=== PATIENT | female | born 1935 | race Caucasian/White ===

== ENCOUNTER 2017-01-25 15:38 | Outpatient (CLI) ==
--- NOTE | 2017-01-25 16:55 | DI ---
EXAM: Chest two view, frontal and lateral views. HISTORY: Cough. COMPARISON: 09/21/2016. FINDINGS: Median sternotomy wires present. Heart size is normal. Atherosclerotic calcifications a re present. The lungs are clear save for calcified granulomatous changes. No consolidation, pleura l effusion or pneumothorax identified. No acute osseous abnormality is seen. IMPRESSION: No acute cardiopulmonary process.
== END 2017-01-25 15:39 | disposition home or self-care (01) ==
LOC: RAD 15:38
PROVIDERS: ATTEND Emergency Medicine
DX: J44.9 Chronic obstructive pulmonary disease, unspecified (principal); R05 Cough

== ENCOUNTER 2017-12-29 10:29 | Outpatient (CLI) | payer OTHER ==
--- NOTE | 2017-12-29 14:03 | DI ---
EXAM: Pelvis AP view HISTORY: Pelvic pain FINDINGS: Compared to 11/03/2011. Hip joints are within normal limits. Sacroiliac joints are withi n normal limits. No fracture or dislocation. Facet arthropathy of the lower lumbar spine is at leas t moderate. IMPRESSION: Facet arthropathy lower spine. Pelvis proper within normal limits.
--- NOTE | 2017-12-29 14:12 | DI ---
Exam: Lumbar spine three-view. HISTORY: Pain. Comparison: 06/18/2014. Findings: Three images of the lumbar spine demonstrate five [id number], lumbarized vertebrae wi th multilevel degenerative disc disease and facet arthropathy which appears moderate to severe at L5 -S1. There is no compression fracture or listhesis. There is no osseous erosion or radiodense forei gn body. Dense atherosclerotic calcifications are noted. Impressions: Degenerative disease in the lumbar spine greatest at L5-S1. No compression fracture or listhesis. Atherosclerosis.
--- NOTE | 2017-12-29 14:12 | DI ---
EXAM: Radiographs, right hip HISTORY: Right hip pain. COMPARISON: None available. TECHNIQUE: Two views. FINDINGS: Bone mineralization is decreased. There is no fracture or dislocation. The joint spaces are maintained. No focal soft tissue abnormality is seen. IMPRESSION: No acute abnormality of the right hip.
== END 2017-12-29 10:30 | disposition home or self-care (01) ==
LOC: RAD 10:29
PROVIDERS: ATTEND Internal Medicine
DX: M25.551 Pain in right hip (principal); M54.9 Dorsalgia, unspecified; W19.XXXA Unspecified fall, initial encounter

== ENCOUNTER 2018-02-24 16:11 | Inpatient (IN) | payer OTHER ==
[2018-02-24] MEDS ORDERED: PROAIR HFA IH PRN (16:54)
[2018-02-24] MEDS ORDERED: DUONEB NEB PRN (16:54)
[2018-02-24] MEDS ORDERED: MORPHINE 4 MG/ML VIAL IVP PRN (17:07)
[2018-02-24] MEDS ORDERED: NITROSTAT SL PRN (17:07)
[2018-02-24] MEDS ORDERED: ATROPINE SULFATE PFS IVP PRN (17:07)
[2018-02-24] MEDS ORDERED: VISTARIL INJ IM PRN (17:07)
[2018-02-24] MEDS ORDERED: TYLENOL PO PRN (17:07)
[2018-02-24 17:24] VITALS: BMI 18.0
[2018-02-24] MEDS: PULMICORT 0.5 MG/2 ML NEB SCH (18:00)
[2018-02-24] MEDS ORDERED: COUMADIN PO SCH (18:00)
[2018-02-24] MEDS: XOPENEX 1.25 MG NEB SCH (18:00)
[2018-02-24] MEDS: DEXTROSE 5%-1/2NS IV SOLUTION 1,000 ML IV SCH (18:06)
[2018-02-24] MEDS: ROCEPHIN 1 GM in SODIUM CHLORIDE 50 ML IV SCH (18:06)
[2018-02-24] MEDS: SOLU-CORTEF 250 MG IVP SCH ×2 (19:10→20:51)
[2018-02-24] MEDS: CALAN SR PO SCH (20:51)
[2018-02-24] MEDS: NEURONTIN PO SCH (20:51)
[2018-02-24] MEDS: LEVEMIR SUBCUT SCH (20:52)
[2018-02-24] MEDS: TUSSIONEX PO SCH (20:52)
[2018-02-24] MEDS: HUMULIN R SUBCUT PRN (20:52)
[2018-02-24] MEDS ORDERED: CALAN SR PO SCH (21:00)
[2018-02-24] MEDS: XANAX PO PRN (22:07)
[2018-02-25] MEDS: XOPENEX 1.25 MG NEB SCH ×4 (00:10→18:27)
[2018-02-25] MEDS: PULMICORT 0.5 MG/2 ML NEB SCH ×2 (04:58→18:26)
[2018-02-25] MEDS: SOLU-CORTEF 250 MG IVP SCH ×3 (05:40→21:02)
--- NOTE | 2018-02-25 07:44 | DI ---
EXAM: CT THORAX HISTORY: Chest pain. TECHNIQUE: CT thorax without intravenous contrast. Multiplanar images presented. COMPARISON: 10/14/2017 FINDINGS: Normal heart size. No pericardial effusion. Stable atherosclerosis and prominent aortic caliber. Mo derate pulmonary emphysema. Scattered fibrosis. No vascular congestion, pneumothorax or pleural flui d. No consolidated pneumonia. The bones are demineralized. Stable wedge-shaped compression deformities of two mid thoracic vertebr al bodies. Stable lower thoracic and upper lumbar vertebral body compression fractures. No acute fr acture is obvious. Incidental note of a tiny sliding hiatal hernia. IMPRESSION: 1. No acute cardiopulmonary process identified. Moderate pulmonary emphysema. 2. Stable multilevel vertebral body compression fractures. 3. Tiny sliding hiatal hernia.
[2018-02-25] MEDS: ROCEPHIN 1 GM in SODIUM CHLORIDE 50 ML IV SCH (08:59)
[2018-02-25] MEDS: TUSSIONEX PO SCH ×2 (08:59→21:03)
[2018-02-25] MEDS: LANOXIN PO SCH (08:59)
[2018-02-25] MEDS: CALAN SR PO SCH ×2 (08:59→21:02)
[2018-02-25] MEDS: NORCO 10-325 PO PRN ×2 (09:00→21:03)
[2018-02-25] MEDS: COZAAR PO SCH (09:00)
[2018-02-25] MEDS: ASPIRIN EC PO SCH (09:00)
[2018-02-25] MEDS: LEVEMIR SUBCUT SCH ×2 (09:08→21:49)
--- NOTE | 2018-02-25 09:44 | PCM.PROG ---
Attending Provider: ATTENDING PROVIDER: Dr. SAMUEL BELLO This patient is seen with Lashawn Austin, Nurse Practitioner. DATE OF SERVICE: 02/25/18 SUBJECTIVE: This 83 year old WHITE/ F was hospitalized 02/24/18. The patient is sitting in bed, alert. She slept well last night. Chest x-ray showed small nodule left upper lobe, which is new. Will do CT scan of chest today. REVIEW OF SYSTEMS: CONSTITUTIONAL: Weakness. No night sweats. No malaise, lethargy. No fever or chills. HEENT: Eyes: No visual changes. No eye pain. No eye discharge. ENT: No runny nose. No epistaxis. No sinus pain. No odynophagia. No congestion. RESPIRATORY: Cough and congestion. No hemoptysis. Shortness of breath. CARDIOVASCULAR: No angina symptoms. No CHF symptoms. No atypical chest pain for CAD. No palpitations. No orthopnea.. GASTROINTESTINAL: No abdominal pain. No nausea or vomiting. No diarrhea or constipation. No hematemesis. No hematochezia. GENITOURINARY: No urgency. No frequency. No dysuria. No hematuria. No obstructive symptoms. No discharge. No pain. No significant abnormal bleeding. MUSCULOSKELETAL: No musculoskeletal pain; no joint swelling. NEUROLOGICAL: Awake, alert, oriented to time, place and person. No headache. No neck pain. No syncope. No seizures. No dizziness. PSYCHIATRIC: Not anxious. No depression. No suicidal thoughts. No homicidal thoughts. SKIN: No rash. No lesions. No wounds. ENDOCRINE: No unexplained weight loss. No weight gain. HEMATOLOGIC/LYMPHATIC: No anemia. No purpura. No petechiae. No prolonged or excessive bleeding. No palpable lymph nodes. PHYSICAL EXAMINATION: GENERAL: The patient is awake, alert and oriented, lying/sitting in bed in no distress. VITAL SIGNS: Temperature 97.8 F, Pulse 78, Respiratory Rate 20, BP 118/55, Pulse Ox 93% HEENT: Head normocephalic, atraumatic. Eyes: Extraocular muscles are intact. Pupils are equal, round and reactive to light and accommodation. Ears: No lesions. Nose appeared normal. Throat: No exudate or erythema. NECK: Supple. No JVD, no carotid bruit. No lymphadenopathy or thyromegaly. LUNGS: Severely diminished breath sounds with bilateral rhonchi, worse left upper lobe. Percussion note normal. Chest symmetrical. HEART: S1, S2, no S3. No murmurs. No cyanosis or clubbing. No ascites. Pulses: Dorsalis pedis and posterior tibial pulses +1 to +2 both sides. ABDOMEN: Soft. Non-tender. Bowel sounds active. No CVA tenderness. No mass felt. EXTREMITIES: No edema. Full range of motion of all extremities, equal. NEUROLOGIC: No focal deficit. Cranial nerves II through XII are grossly intact. No headache, no double vision or headache. SKIN: Not dry. Intact. Turgor-normal. LYMPHATIC: No palpable lymph nodes/no lymphedema. MUSCULOSKELETAL: Normal joints with no swelling. Muscle tone is normal. LAB REVIEW: 02/25/18 03:00 02/25/18 03:00 02/25/18 03:00: Sodium 137, Potassium 4.1, Chloride 103, Carbon Dioxide 27, Anion Gap 11.1, BUN 14, Creatinine 0.68, Estimated GFR (MDRD) 83.00, BUN/ Creatinine Ratio 20.58, Glucose 198 H D, Calcium 9.3, Total Bilirubin 0.3, AST 18, ALT 34, Alkaline Phosphatase 81, Total Protein 6.7, Albumin 2.5 L, Globulin 4.2, Albumin/Globulin Ratio 0.60 02/25/18 03:00: PT 35.9 H, INR 3.73 02/25/18 03:00: WBC 19.54 H, RBC 4.17 L, Hgb 13.2, Hct 39.4, MCV 94.5, MCH 31.7 H, MCHC 33.5, RDW Coeff of [place] 11.9, Plt Count 245, Immature Gran % (Auto) 1.9, Neut % (Auto) 88.9, Lymph % (Auto) 5.4 L, [place] % (Auto) 3.5, Eos % (Auto) 0.0, Baso % (Auto) 0.3, Immature Gran # (Auto) 0.4, Neut # (Auto) 17.4 H, Lymph # ( Auto) 1.1, [place] # (Auto) 0.7, Eos # (Auto) 0.0, Baso # (Auto) 0.1 02/25/18 01:00: Total Creatine Kinase 30, Troponin I 0.0100 02/24/18 18:30: Urine Color Yellow, Urine Clarity Clear, Urine pH 5.5, Ur Specific [place] 1.015, Urine Protein 1+, Urine Glucose (UA) 2+, Urine Ketones Negative, Urine Blood 1+, Urine Nitrite Positive, Urine Bilirubin Negative, Urine Urobilinogen 1.0, Ur Leukocyte Esterase Negative, Urine Microscopic RBC 2- 5, Urine Microscopic WBC 5-10, Ur Squamous Epith Cells 2-5, Urine Bacteria 2+, Urine Mucus Trace 02/24/18 17:20: Digoxin 0.59 L 02/24/18 17:20: Sodium 134 L, Potassium 4.4, Chloride 101, Carbon Dioxide 28, Anion Gap 9.4, BUN 17, Creatinine 0.63, Estimated GFR (MDRD) 90.00, BUN/ Creatinine Ratio 26.98, Glucose 122 H, Calcium 9.6, Total Bilirubin 0.3, AST 22 , ALT 37, Alkaline Phosphatase 83, Total Creatine Kinase 34, Troponin I 0.0240, Total Protein 6.9, Albumin 2.6 L, Globulin 4.3, Albumin/Globulin Ratio 0.60 02/24/18 17:20: WBC 17.41 H, RBC 4.29, Hgb 13.6, Hct 40.2, MCV 93.7, MCH 31.7 H , MCHC 33.8, RDW Coeff of [place] 12.1, Plt Count 261, Immature Gran % (Auto) 0.8, Neut % (Auto) 83.4, Lymph % (Auto) 8.4 L, [place] % (Auto) 7.2, Eos % (Auto) 0.0, Baso % (Auto) 0.2, Immature Gran # (Auto) 0.1, Neut # (Auto) 14.5 H, Lymph # ( Auto) 1.5, [place] # (Auto) 1.3, Eos # (Auto) 0.0, Baso # (Auto) 0.0 02/24/18 17:20: PT 33.3 H, INR 3.45 02/24/18 17:01: Puncture Site Rrad, O2 Saturation 95.0, ABG pH 7.490 H, ABG pCO2 39.2, ABG pO2 69.0 L, ABG HCO3 29.8 H, ABG Total CO2 31 H, ABG Base Excess 6 H, Tonio Test +, FiO2 % 21.0 ASSESSMENT: 1. ACUTE PNEUMONITIS 2. NEW LEFT UPPER LOBE NODULE 3. COPD PLAN: 1. CT scan of the chest with and without contrast today 2. Hold Coumadin times two days Plan and coordination of the patient's care discussed in the presence of Six Pack Packer and nurse. CONDITION: Stable SCRIBED BY: JACLYN ANDRADE Gas Systems Worker scribed while in presence of service performed by Dr. Bello/Lashawn Austin APRN on 02/25/18 ([id number])
--- NOTE | 2018-02-25 14:08 | CT ---
EXAM: CT chest with and without contrast HISTORY: Evaluate left upper lobe pulmonary nodule COMPARISON: Chest x-ray 02/24/2018 and multiple priors including CT chest 05/02/2016 TECHNIQUE: Serial axial images of the chest were obtained after and before 75 ml of Omnipaque-300 IV contrast was administered. These were obtained from the lung apices to the upper abdomen. FINDINGS: The thyroid is normal. Visualized vessels demonstrate moderate atherosclerotic disease. There are changes consistent with previous bypass. Heart is unremarkable with no pericardial effusio n. There are scattered calcified mediastinal lymph nodes. There is no pneumothorax or pleural effusion. There is patchy peripheral ground-glass opacities thro ughout both lungs with central and peripheral airway thickening. There is a 0.7 centimeter left uppe r lobe pulmonary nodule on image 21 likely representing the nodule seen on x-ray. There is a 0.4 cm right middle lobe pulmonary nodule unchanged since 2016 which is stable. There is a benign calcified right lung mass which is unchanged. There is a ground-glass nodule in the right lower lobe measurin g 0.3 cm on image 37. Soft tissues in the upper abdomen is unremarkable. The osseous structures demonstrate degenerative disease. IMPRESSION: 1. Bilateral pulmonary nodules. There is a ground-glass nodules with scattered diffuse bilateral ai rway thickening and central lobular ground-glass suggestive of small airways infection/inflammation. The pulmonary nodules may represent nodules versus inflammatory changes. Follow-up in 3-6 months is recommended. 2. Moderate atherosclerotic disease with postsurgical changes of bypass.
[2018-02-25] MEDS: HUMULIN R SUBCUT PRN ×2 (14:14→17:55)
[2018-02-25] MEDS: DEXTROSE 5%-1/2NS IV SOLUTION 1,000 ML IV SCH ×2 (16:59→21:57)
[2018-02-25] MEDS: ZOCOR PO SCH (16:59)
[2018-02-25] MEDS ORDERED: NON-FORMULARY MEDICATION (Warfarin Sodium [Coumadin] 4 MG) PO SCH (17:00)
[2018-02-25] MEDS ORDERED: NON-FORMULARY MEDICATION (Simvastatin [Zocor] 40 MG) PO SCH (17:00)
[2018-02-25] MEDS ORDERED: COUMADIN PO SCH (17:00)
[2018-02-25] MEDS: NEURONTIN PO SCH (21:02)
[2018-02-25] MEDS: XANAX PO PRN (21:03)
[2018-02-26] MEDS: XOPENEX 1.25 MG NEB SCH ×2 (00:47→05:12)
[2018-02-26] MEDS: SOLU-CORTEF 250 MG IVP SCH ×3 (04:44→21:27)
[2018-02-26] MEDS: PULMICORT 0.5 MG/2 ML NEB SCH (05:11)
[2018-02-26] MEDS: DEXTROSE 5%-1/2NS IV SOLUTION 1,000 ML IV SCH (05:13)
[2018-02-26] MEDS: ASPIRIN EC PO SCH (08:46)
[2018-02-26] MEDS: ROCEPHIN 1 GM in SODIUM CHLORIDE 50 ML IV SCH (08:46)
[2018-02-26] MEDS: COZAAR PO SCH (08:47)
[2018-02-26] MEDS: LANOXIN PO SCH (08:47)
[2018-02-26] MEDS: CALAN SR PO SCH ×2 (08:47→21:20)
[2018-02-26] MEDS: LEVEMIR SUBCUT SCH ×2 (08:48→21:21)
[2018-02-26] MEDS: HUMULIN R SUBCUT PRN ×4 (08:48→21:22)
[2018-02-26] MEDS: NORCO 10-325 PO PRN (08:48)
[2018-02-26] MEDS: TUSSIONEX PO SCH ×2 (08:48→21:20)
[2018-02-26] MEDS: XOPENEX 0.63 MG NEB SCH ×2 (14:40→19:40)
[2018-02-26] MEDS: ZOCOR PO SCH (17:16)
[2018-02-26] MEDS: NEURONTIN PO SCH (21:20)
[2018-02-26] MEDS: XANAX PO PRN (21:21)
[2018-02-27] MEDS: XOPENEX 0.63 MG NEB SCH ×3 (05:03→21:04)
[2018-02-27] MEDS: SOLU-CORTEF 250 MG IVP SCH ×3 (05:54→21:08)
[2018-02-27] MEDS: ASPIRIN EC PO SCH (10:07)
[2018-02-27] MEDS: CALAN SR PO SCH ×2 (10:07→21:02)
[2018-02-27] MEDS: ROCEPHIN 1 GM in SODIUM CHLORIDE 50 ML IV SCH (10:07)
[2018-02-27] MEDS: COZAAR PO SCH (10:08)
[2018-02-27] MEDS: LANOXIN PO SCH (10:08)
[2018-02-27] MEDS: LEVEMIR SUBCUT SCH ×2 (10:18→21:03)
[2018-02-27] MEDS: HUMULIN R SUBCUT PRN ×3 (12:14→21:04)
[2018-02-27] MEDS: TUSSIONEX PO SCH ×2 (14:08→21:02)
[2018-02-27] MEDS: ZOCOR PO SCH (16:41)
[2018-02-27] MEDS: NEURONTIN PO SCH (21:02)
[2018-02-27] MEDS: XANAX PO PRN (22:00)
[2018-02-28] MEDS: XOPENEX 0.63 MG NEB SCH (05:05)
[2018-02-28] MEDS: SOLU-CORTEF 250 MG IVP SCH ×2 (05:52→12:16)
[2018-02-28] MEDS: CALAN SR PO SCH (08:39)
[2018-02-28] MEDS: ASPIRIN EC PO SCH (08:39)
[2018-02-28] MEDS: ROCEPHIN 1 GM in SODIUM CHLORIDE 50 ML IV SCH (08:39)
[2018-02-28] MEDS: LANOXIN PO SCH (08:39)
[2018-02-28] MEDS: TUSSIONEX PO SCH (08:40)
[2018-02-28] MEDS: COZAAR PO SCH (08:40)
[2018-02-28] MEDS: LEVEMIR SUBCUT SCH (08:40)
--- NOTE | 2018-02-28 09:43 | PCM.PROG ---
Attending Provider: ATTENDING PROVIDER: Dr. SAMUEL BELLO This patient is seen with Lashawn Austin, Nurse Practitioner. DATE OF SERVICE: 02/28/18 SUBJECTIVE: This 83 year old WHITE/ F was hospitalized 02/24/18. The patient is sitting in bed, alert. She is feeling better, ready to go home. She has been up and about walking without oxygen. REVIEW OF SYSTEMS: CONSTITUTIONAL: Weakness. No night sweats. No malaise, lethargy. No fever or chills. HEENT: Eyes: No visual changes. No eye pain. No eye discharge. ENT: No runny nose. No epistaxis. No sinus pain. No odynophagia. No congestion. RESPIRATORY: Cough and congestion. No hemoptysis. No shortness of breath. CARDIOVASCULAR: No angina symptoms. No CHF symptoms. No atypical chest pain for CAD. No palpitations. No orthopnea.. GASTROINTESTINAL: No abdominal pain. No nausea or vomiting. No diarrhea or constipation. No hematemesis. No hematochezia. GENITOURINARY: Dysuria, foul-smelling urine. No urgency. No frequency. No hematuria. No obstructive symptoms. No discharge. No pain. No significant abnormal bleeding. MUSCULOSKELETAL: No musculoskeletal pain; no joint swelling. NEUROLOGICAL: Awake, alert, oriented to time, place and person. No headache. No neck pain. No syncope. No seizures. No dizziness. PSYCHIATRIC: Not anxious. No depression. No suicidal thoughts. No homicidal thoughts. SKIN: No rash. No lesions. No wounds. ENDOCRINE: No unexplained weight loss. No weight gain. HEMATOLOGIC/LYMPHATIC: No anemia. No purpura. No petechiae. No prolonged or excessive bleeding. No palpable lymph nodes. PHYSICAL EXAMINATION: GENERAL: The patient is awake, alert and oriented, sitting in bed in no distress. VITAL SIGNS: Temperature 97.7 F, Pulse 80, Respiratory Rate 18, BP 141/64, Pulse Ox 96% HEENT: Head normocephalic, atraumatic. Eyes: Extraocular muscles are intact. Pupils are equal, round and reactive to light and accommodation. Ears: No lesions. Nose appeared normal. Throat: No exudate or erythema. NECK: Supple. No JVD, no carotid bruit. No lymphadenopathy or thyromegaly. LUNGS: Diminished breath sounds. Improving bilateral rhonchi. Percussion note normal. Chest symmetrical. HEART: S1, S2, no S3. No murmurs. No cyanosis or clubbing. No ascites. Pulses: Dorsalis pedis and posterior tibial pulses +1 to +2 both sides. ABDOMEN: Soft. Non-tender. Bowel sounds active. No CVA tenderness. No mass felt. EXTREMITIES: No edema. Full range of motion of all extremities, equal. NEUROLOGIC: No focal deficit. Cranial nerves II through XII are grossly intact. No headache, no double vision or headache. SKIN: Not dry. Intact. Turgor-normal. LYMPHATIC: No palpable lymph nodes/no lymphedema. MUSCULOSKELETAL: Normal joints with no swelling. Muscle tone is normal. LAB REVIEW: 02/28/18 04:35 02/28/18 04:35 02/28/18 04:35: Sodium 139, Potassium 3.9, Chloride 102, Carbon Dioxide 30, Anion Gap 10.9, BUN 20 H, Creatinine 0.57 L, Estimated GFR (MDRD) 101.00, BUN/ Creatinine Ratio 35.08, Glucose 125 H, Calcium 8.5, Total Bilirubin 0.3, AST 25 , ALT 37, Alkaline Phosphatase 66, Total Protein 5.3 L, Albumin 2.2 L, Globulin 3.1, Albumin/Globulin Ratio 0.71 02/28/18 04:35: PT 14.2 H D, INR 1.44 02/28/18 04:35: WBC 11.88 H, RBC 3.68 L, Hgb 11.6 L, Hct 34.7 L, MCV 94.3, MCH 31.5 H, MCHC 33.4, RDW Coeff of [place] 11.9, Plt Count 218, Immature Gran % (Auto) 1.3, Neut % (Auto) 82.0, Lymph % (Auto) 11.6, [place] % (Auto) 4.9, Eos % (Auto) 0.0, Baso % (Auto) 0.2, Immature Gran # (Auto) 0.2, Neut # (Auto) 9.8 H, Lymph # (Auto) 1.4, [place] # (Auto) 0.6, Eos # (Auto) 0.0, Baso # (Auto) 0.0 ASSESSMENT: 1. ACUTE PNEUMONITIS, SPUTUM POSITIVE FOR [place]A 2. NEW LEFT UPPER LOBE NODULE 3. COPD 4. UTI E.COLI, ESBL POSITIVE PLAN: 1. Discharge home. 2. ProAir inhaler two puffs t.i.d. p.r.n. 3. Keflex 500 b.i.d. p.o. times 7 days. 4. Prednisone 20 b.i.d. p.o. for 2 days then daily for 5 days. 5. Macrobid 100 mg b.i.d. p.o. times 7 days. 6. Advised to rest. 7. Will see patient in the office on Wednesday. Plan and coordination of the patient's care discussed in the presence of Flotation Tender Helper and nurse. CONDITION: Stable SCRIBED BY: JACLYN ANDRADE Director Of [employer] Work scribed while in presence of service performed by Dr. Bello/Lashawn Austin APRN on 02/28/18 (0800)
[2018-02-28 10:26] VITALS: BP 104/58; TEMP 97.5
--- NOTE | 2018-02-28 11:28 | CM.DICTOOL ---
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, 3 VESSEL 1997 STENT APPLICATION, 2000 HYSTERECTOMY LAST VITALS Temp Pulse Resp BP Pulse Ox 97.7 F 82 18 141/64 H 96 02/28/18 06:00 02/28/18 08:39 02/28/18 06:00 02/28/18 06:00 02/28/18 06:00 TAKE THESE MEDICATIONS Hydrocodone Bitart/Acetaminophen ([place] 10-325) 1 tab PO Q12H PRN PRN Reason: pain Last Admin: 02/26/18 08:48 Dose: 1 tab Albuterol Sulfate (Proair Hfa) 2 puff IH TID Albuterol/Ipratropium (Duoneb) 1 vial NEB QID PRN PRN Reason: shortness of air Alprazolam (Xanax) 0.25 mg PO DAILY PRN PRN Reason: Anxiety Last Admin: 02/25/18 21:03 Dose: 0.25 mg Aspirin (Aspirin Ec) 81 mg PO DAILYWM [facility] Last Admin: 02/28/18 08:39 Dose: 81 mg Digoxin (Lanoxin) 125 mcg PO DAILY [facility] Last Admin: 02/28/18 08:39 Dose: 125 mcg Gabapentin (Neurontin) 300 mg PO BEDTIME [facility] Last Admin: 02/27/18 21:02 Dose: 300 mg Insulin Detemir (Levemir) 10 unit SUBCUT 2100 [facility] Last Admin: 02/27/18 21:03 Dose: 10 unit Insulin Detemir (Levemir) 12 unit SUBCUT 0900 [facility] Last Admin: 02/28/18 08:40 Dose: 12 unit Losartan Potassium (Cozaar) 25 mg PO DAILY [facility] Last Admin: 02/28/18 08:40 Dose: 25 mg Simvastatin (Zocor) 40 mg PO QPM [facility] Last Admin: 02/27/18 16:41 Dose: 40 mg Verapamil 180 mg PO BID [facility] Last Admin: 02/28/18 08:39 180 mg Warfarin Sodium (Coumadin) 4 mg PO QPM [facility] Keflex 500 mg PO BID for 7 days Macrobid 100 mg PO BID for 7 days Prednisone 20 mg PO BID for 2 days, then daily for 5 days ProAir HFA IH 2 puffs TID MEDICATIONS DISCONTINUED None ALLERGIES fenofibrate nanocrystallized [From Tricor] Adverse Reaction (Verified 05/02/16 09:28) fenofibrate,micronized [From Tricor] Adverse Reaction (Verified 05/02/16 09:28) NEW PRESCRIPTIONS: Keflex 500 mg BID for 7 days Macrobid 100 mg BID for 7 days Prednisone 20 mg BID for 2 days, then daily for 5 days ProAir HFA 2 puffs TID SMOKING: Advised to stop smoking DISEASE SPECIFIC EDUCATION: Antibiotics Use of Steroids, Risk of GI irritation Use of inhaler Activity Appointment LAB REVIEW: 02/28/18 04:35 02/28/18 04:35 02/28/18 04:35: Sodium 139, Potassium 3.9, Chloride 102, Carbon Dioxide 30, Anion Gap 10.9, BUN 20 H, Creatinine 0.57 L, Estimated GFR (MDRD) 101.00, BUN/ Creatinine Ratio 35.08, Glucose 125 H, Calcium 8.5, Total Bilirubin 0.3, AST 25 , ALT 37, Alkaline Phosphatase 66, Total Protein 5.3 L, Albumin 2.2 L, Globulin 3.1, Albumin/Globulin Ratio 0.71 02/28/18 04:35: PT 14.2 H D, INR 1.44 02/28/18 04:35: WBC 11.88 H, RBC 3.68 L, Hgb 11.6 L, Hct 34.7 L, MCV 94.3, MCH 31.5 H, MCHC 33.4, RDW Coeff of [place] 11.9, Plt Count 218, Immature Gran % (Auto) 1.3, Neut % (Auto) 82.0, Lymph % (Auto) 11.6, [place] % (Auto) 4.9, Eos % (Auto) 0.0, Baso % (Auto) 0.2, Immature Gran # (Auto) 0.2, Neut # (Auto) 9.8 H, Lymph # (Auto) 1.4, [place] # (Auto) 0.6, Eos # (Auto) 0.0, Baso # (Auto) 0.0 PLAN: Discharge home Diet: Consistent Carbohydrates Activity: Gradually resume activity as tolerated Rest Frequently Please resume Coumadin 4 mg tonight and then every day An appointment is scheduled with Dr. Boyce/Lashawn Austin APRN on March 04 at 9:30 am An outpatient Pulmonary Function Test is scheduled for March 08 at 1 pm at [facility] Code Status: DNI Mrs. Stapleton is alert and oriented x 3. She is independent with Activities of Daily Living. She is ambulatory without use of an assistive device or the use of oxygen. Durable medical equipment at home consists of a nebulizer and oxygen. Mrs. Stapleton wears the oxygen primarily for night time use only, but at times will wear during the day if napping. Meal intakes are good at 35-100% with 100% intake of breakfast noted this morning. She is continent of bowel and bladder. She denies pain or burning with urination. She is intact and free of decubitus ulcers. Areas of bruising noted to the upper extremities. Manas Boyce MD Lashawn Austin APRN
[2018-02-28] MEDS: HUMULIN R SUBCUT PRN (12:12)
--- NOTE | 2018-02-28 13:37 | ECHO2D ---
Date of Exam: 02/27/18 Ordering Physician: DR. SAMUEL BELLO Room #: [id number] Reason for Echo: CABG, COPD, SOB M-Mode Normal Adult Results LV Dimensions Normal Adult Results AoV Opening excursions >1.6 >1.6 LVEDD-base- 3.5-5.8 3.6 Ao root dimensions 2.0-3.7 2.9 LVESD-base- 3.1-4.6 L. Atrium dimensions 1.9-3.8 3.9 Post. Wall thickness 0.8-1.1 1.0 IV septum (thickness) 0.7-1.2 1.0 Post. Wall excursion 0.72-1.3 NORMAL Septal motion NORMAL Systolic motion R. Ventricular cavity 1.5-2.0 NORMAL LVEF 60% 66% Paradoxical septal wall motion NORMAL 2-D : 2-D M Mode Echocardiogram was performed using apical four chamber and left parasternal long and short axis views. Mitral, tricuspid and aortic valves appear to be normal. Contractility of the left ventricle seems to be normal, so is the cavity size. Left atrial cavity size and aortic root appear to be normal. There is no pericardial effusion. There is no thrombus noted in the left ventricular or left aortic cavity. No mitral valve prolapse noted. M-MODE: MV: NORMAL AV: NORMAL TV: NORMAL PV: CHAMBER SIZE: NORMAL WALL MOTION: NORMAL PERICARDIUM: NORMAL INTERPRETATION: 1. NORMAL 2 "D" "M" MODE [facility]CHO [facility]
--- NOTE | 2018-03-01 12:53 | PN ---
DATE OF SERVICE: 02/28/18 SUBJECTIVE: The patient was seen this morning with the Nurse Practitioner. The patient was hospitalized with pneumonitis and acute bronchitis. She is a heavy smoker, 1 pack per day. She is strongly advised to quit smoking. Counseling done. Also advised pulmonary rehab. The patient's condition is stable. We will do PFT before discharge. Echo showed normal 2D M Mode echo with normal LV contractility. The patient's condition at the time of discharge is stable. TIME SPENT: More than 30 minutes. Plan and coordination of the patient's care discussed in the presence of nurse. STEFANO
--- NOTE | 2018-03-01 12:54 | PN ---
02/24/18: Level 5 02/25/18: Intermediate 02/26/18: Intermediate 02/27/18: Intermediate 02/28/18: D as in discharge MTDD
--- NOTE | 2018-03-03 13:57 | PN ---
DATE OF SERVICE: 02/26/18 SUBJECTIVE: Her breathing, shortness of breath is better. She is still very weak. She feels that the breathing treatments are making her very shaky. She is not eating very much. She still with productive congested cough. REVIEW OF SYSTEMS: CONSTITUTIONAL: Weakness. No night sweats. No malaise, lethargy. No fever or chills. HEENT: Eyes: No visual changes. No eye pain. No eye discharge. ENT: No runny nose. No epistaxis. No sinus pain. No sore throat. No odynophagia. No congestion. RESPIRATORY: Cough, congestion and shortness of breath. No hemoptysis. CARDIOVASCULAR: No angina symptoms. No CHF symptoms. No atypical chest pain for CAD. No palpitations. No orthopnea. GASTROINTESTINAL: Diminished appetite. No abdominal pain. No nausea or vomiting. No diarrhea or constipation. No hematemesis. No hematochezia. GENITOURINARY: No urgency. No frequency. No dysuria. No hematuria. No obstructive symptoms. No discharge. No pain. No significant abnormal bleeding. MUSCULOSKELETAL: No musculoskeletal pain; no joint swelling. NEUROLOGICAL: No headache. No neck pain. No syncope. No seizures. No dizziness. PSYCHIATRIC: Not anxious. No depression. No suicidal thoughts. No homicidal thoughts. SKIN: No rash. No lesions. No wounds. ENDOCRINE: No unexplained weight loss. No weight gain. HEMATOLOGIC/LYMPHATIC: No anemia. No purpura. No petechiae. No prolonged or excessive bleeding. No palpable lymph nodes. PHYSICAL EXAMINATION: VITAL SIGNS: Temperature 97.8, heart rate 75, respirations 16, BP 125/65, pulse ox 95% on 2L. HEENT: Head normocephalic, atraumatic. Eyes: Extraocular muscles are intact. Pupils are equal, round and reactive to light and accommodation. Ears: No lesions. Nose appeared normal. Throat: No exudate or erythema. NECK: Supple. No JVD, no carotid bruit. No lymphadenopathy or thyromegaly. LUNGS: Improving bilateral rhonchi. Percussion note normal. Chest symmetrical. HEART: S1, S2, no S3. No murmurs. No cyanosis or clubbing. No ascites. Pulses: Dorsalis pedis and posterior tibial pulses +1 to +2 both sides. ABDOMEN: Soft. Nontender. Bowel sounds active. No CVA tenderness. No mass felt. EXTREMITIES: No edema. Full range of motion of all extremities, equal. NEUROLOGIC: No focal deficit. Cranial nerves II through XII are grossly intact. No headache, no double vision or headache. SKIN: Not dry. Intact. Turgor - normal. LYMPHATIC: No palpable lymph nodes/no lymphedema. MUSCULOSKELETAL: Normal joints with no swelling. Muscle tone is normal. LABS: White count 18, hemoglobin 11.8, hematocrit 35.2, platelets 260. Sodium 139, potassium 4.5, BUN 17, creatinine 0.61, INR 4.3 today, will hold for the next two days. She also states that she did not sleep last night. ASSESSMENT: 1. SHORTNESS OF BREATH IMPROVING 2. ACUTE PNEUMONITIS 3. RIGHT PLEURITIC PAIN, WHICH HAS RESOLVED PLAN: 1. Will hold Coumadin for the next two days. 2. D/C her IV fluids. 3. Encourage oral intake. 4. Will do Xanax 0.5 mg q.h.s. in order to sleep. 5. I will d/c her Pulmicort. 6. Decrease Xopenex to 0.63% q.8hr neb treatment. TIME SPENT: More than 30 minutes. Plan and coordination of the patient's care discussed in the presence of nurse. STEFANO
--- NOTE | 2018-03-03 14:41 | DS ---
DATE OF SERVICE: 02/28/18 FINAL DIAGNOSIS: 1. ACUTE PNEUMONITIS 2. RIGHT PLEURITIC PAIN 3. URINARY TRACT INFECTION, E-COLI ESBL POSITIVE 4. COPD 5. PULMONARY FIBROSIS 6. CHRONIC BRONCHITIS 7. HYPERTENSION 8. CAD 9. DIABETES, TYPE 2 10. ANEMIA 11. ATRIAL FIBRILLATION 12. PULMONARY NODULE 13. GERD 14. CONTINUED SMOKING, ONE PACK PER DAY 15. GI BLEED, 2012 16. PERIPHERAL ARTERIAL DISEASE 17. CABG, THREE VESSEL, 1996 18. STENT APPLICATION, 2000 19. HYSTERECTOMY DISCHARGE INSTRUCTIONS: Followup appointment with Dr. Boyce/Lashawn Austin APRN on 03/04/18 at 9:30 a.m. An outpatient pulmonary function test is scheduled for 03/08/18 at [address] [facility]. MEDICATIONS AT DISCHARGE: Hydrocodone/Acetaminophen ([place]ishop 10-325) one tab p.o. q.12h p.r.n. ProAir Hfa two puff IH t.i.d. Duoneb one vial neb q.i.d. p.r.n. Xanax 0.25 mg p.o. daily p.r.n. Aspirin 81 mg p.o. daily with meal MARIS Lanoxin 125 mcg p.o. daily MARIS Neurontin 300 mg p.o. bedtime MARIS Levemir 10 unit subcut Levemir 12 unit subcut 0900 Cozaar 25 mg p.o. daily MARIS Zocor 40 mg p.o. q.p.m. MARIS Verapamil 180 mg p.o. b.i.d. MARIS Coumadin 4 mg p.o. q.p.m. MARIS (please resume Coumadin 4 mg tonight and then every day) Keflex 500 mg p.o. b.i.d. for 7 days Macrobid 100 mg p.o. b.i.d. for 7 days Prednisone 20 mg p.o. b.i.d. for 2 days then daily for 5 days NEW PRESCRIPTIONS: Keflex 500 mg b.i.d. for 7 days Macrobid 100 mg b.i.d. for 7 days Prednisone 20 mg b.i.d. for 2 days, then daily for 5 days ProAir Hfa 2 puffs t.i.d. DIET INSTRUCTIONS: Consistent Carbs ACTIVITY: Gradually resume activity as tolerated. Rest frequently. SMOKING: Advised to stop smoking DISEASE SPECIFIC EDUCATION: Antibiotics Use of steroids, risk of GI irritation Use of inhaler Activity Appointment HOSPITAL COURSE: This is an 83-year-old white female who is a direct admit from our office. She had been treated as an outpatient for about the past 5 days with Keflex and Prednisone for cough, congestion and shortness of breath. She was very weak and short of breath on admission. She was placed on Rocephin 1 gm IV daily along with Solu-Cortef 125 mg IV q.8hr, started on Xopenex neb treatments q.6hr scheduled along with Pulmicort neb treatments b.i.d. All of her home medications were continued. Her INR was elevated on admission at 3. This was held for 2 days and still went up to 4.3. Today after being held the past four days her INR is back down to 1.4. We will restart her Coumadin today. The patient has a history of atrial fib. This rate has been controlled while she has been there. She is long-term COPD patient. She does not require any oxygen at home. It was also found her urine was positive for E. coli and however, not sensitive to Rocephin as it was ESBL positive so she will go home with Macrobid 100 b.i.d. for the next 7 days along with Keflex 500 b.i.d. for the next 7 days. Her chest x-ray showed possible new pulmonary nodule. Recommended a CT scan. CT scan was done the day following admission which showed stable pulmonary nodules, nothing appeared new. 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 On admission she was experiencing pain with coughing and breathing, extreme shortness of breath. This has since resolved. On Wednesday, we decreased her steroids to q.12hr. Today we will put her on p.o. Prednisone. She tolerated the decrease well. She does have a nebulizer machine at home; however, she declines to use it so will send her home with Proair inhaler for her to use at least 4 times a day until her cough resolves. She is to discharge home with increased rest, resume Coumadin today. She will have a PFT scheduled as an outpatient, finish her Keflex, Prednisone and Macrobid and we will followup with her in the office. Today, on day of discharge, pulse ox 96% on room air. Blood pressure 141/64, temperature 97.7. She has been eating 75 to 100% of her meals and up and about walking around for the past 24 hours. The patient is DNI TIME SPENT: More than 60 minutes. MTDD
== END 2018-02-28 13:02 | disposition home or self-care (01) | DRG 194 ==
LOC: MEDSURG A 16:11
PROVIDERS: ADMIT Internal Medicine; ATTEND Internal Medicine
DX: J18.9 Pneumonia, unspecified organism (principal); N39.0 Urinary tract infection, site not specified; R79.1 Abnormal coagulation profile; I48.91 Unspecified atrial fibrillation; R07.81 Pleurodynia; B96.20 Unspecified Escherichia coli [E. coli] as the cause of diseases classified elsewhere; J44.9 Chronic obstructive pulmonary disease, unspecified; J84.10 Pulmonary fibrosis, unspecified; E11.9 Type 2 diabetes mellitus without complications; I10 Essential (primary) hypertension; F17.210 Nicotine dependence, cigarettes, uncomplicated; I25.10 Atherosclerotic heart disease of native coronary artery without angina pectoris; D64.9 Anemia, unspecified; R91.1 Solitary pulmonary nodule; K21.9 Gastro-esophageal reflux disease without esophagitis; I73.9 Peripheral vascular disease, unspecified; Z16.12 Extended spectrum beta lactamase (ESBL) resistance; Z95.1 Presence of aortocoronary bypass graft; Z79.01 Long term (current) use of anticoagulants; Z79.4 Long term (current) use of insulin; Z95.5 Presence of coronary angioplasty implant and graft; Z87.19 Personal history of other diseases of the digestive system
CPT/HCPCS: 36415; 80053; 80162; 81001; 82550; 82803; 82962; 84484; 85025; 85610; 87070; 87086; 87186; 93005; 93010; 94640; 97802

== ENCOUNTER 2018-06-14 11:20 | Outpatient (CLI) ==
--- NOTE | 2018-06-14 12:22 | DI ---
EXAM: Two views of the chest. History: Cough. Comparison: Chest radiograph 02/24/2018, chest CT 02/25/2018 Findings: Heart size is normal. Sternotomy wires. Atherosclerotic vascular calcifications. Diffus e bronchial wall thickening again noted. Scattered bilateral lung nodules are probably not significa ntly changed compared to the prior CT. No consolidated pneumonia. No pleural fluid and no pneumotho rax. Calcified granulomas again seen within the thorax. No acute osseous abnormalities. Impression: Diffuse bronchial wall thickening and scattered bilateral lung nodules are probably not significantly changed. No consolidated pneumonia.
[2018-06-15 12:05] VITALS: BMI 17.5
== END 2018-06-14 11:21 | disposition home or self-care (01) ==
LOC: RAD 11:20
PROVIDERS: ATTEND Internal Medicine
DX: R05 Cough (principal); R09.89 Other specified symptoms and signs involving the circulatory and respiratory systems

== ENCOUNTER 2018-06-15 11:12 | Inpatient (IN) ==
[2018-06-15] MEDS ORDERED: MORPHINE 4 MG/ML VIAL IVP PRN (11:41)
[2018-06-15] MEDS ORDERED: ATROPINE SULFATE PFS IVP PRN (11:41)
[2018-06-15] MEDS ORDERED: VISTARIL INJ IM PRN (11:41)
[2018-06-15] MEDS ORDERED: NITROSTAT SL PRN (11:41)
[2018-06-15] MEDS ORDERED: TYLENOL PO PRN (11:41)
[2018-06-15 12:05] VITALS: BMI 17.5
[2018-06-15] MEDS ORDERED: SOLU-MEDROL 125 MG ONE (12:07)
[2018-06-15] MEDS: XANAX PO SCH ×3 (12:17→21:23)
[2018-06-15] MEDS: DEXTROSE 5%-1/2NS IV SOLUTION 1,000 ML IV SCH (12:22)
[2018-06-15] MEDS: XOPENEX 1.25 MG NEB SCH ×3 (12:38→22:40)
[2018-06-15] MEDS: LEVAQUIN 500 MG in PREMIX 100 ML D5W 1 BAG IV SCH (13:01)
[2018-06-15] MEDS: SOLU-CORTEF 250 MG IVP SCH ×2 (14:11→21:17)
--- NOTE | 2018-06-15 14:40 | DI ---
EXAM: CHEST FRONTAL VIEW HISTORY: Shortness of breath. COMPARISON: 06/14/2018 FINDINGS: Heart size remains within normal limits. Moderate atherosclerotic disease. Sternotomy wi res are present. Mild hyperinflation. Chronic-appearing interstitial changes. No definite consolida natalie pneumonia, vascular congestion, pneumothorax or pleural fluid. IMPRESSION: No obvious acute cardiopulmonary process.
[2018-06-15] MEDS: PULMICORT 0.5 MG/2 ML NEB SCH (18:05)
[2018-06-15] MEDS ORDERED: NORCO 10-325 PO PRN (18:13)
[2018-06-15] MEDS ORDERED: PROAIR HFA IH PRN (18:13)
[2018-06-15] MEDS: HUMULIN R SUBCUT PRN ×2 (18:26→21:37)
[2018-06-15] MEDS ORDERED: NON-FORMULARY MEDICATION (Warfarin Sodium [Coumadin] 4 MG) PO SCH (18:30)
[2018-06-15] MEDS ORDERED: CALAN SR PO SCH (21:00)
[2018-06-15] MEDS: NEURONTIN PO SCH (21:19)
[2018-06-16] MEDS: DEXTROSE 5%-1/2NS IV SOLUTION 1,000 ML IV SCH (04:29)
[2018-06-16] MEDS: PULMICORT 0.5 MG/2 ML NEB SCH ×2 (04:52→16:36)
[2018-06-16] MEDS: XOPENEX 1.25 MG NEB SCH ×4 (04:52→22:40)
[2018-06-16] MEDS: SOLU-CORTEF 250 MG IVP SCH ×2 (06:01→12:48)
[2018-06-16] MEDS: HUMULIN R SUBCUT PRN ×3 (06:26→16:48)
[2018-06-16] MEDS ORDERED: ASPIRIN EC PO SCH (08:00)
[2018-06-16] MEDS: LEVAQUIN 500 MG in PREMIX 100 ML D5W 1 BAG IV SCH (08:54)
[2018-06-16] MEDS ORDERED: CALAN SR PO SCH (09:00)
--- NOTE | 2018-06-16 09:01 | PCM.PROG ---
Attending Provider: ATTENDING PROVIDER: Dr. SAMUEL BELLO This patient is seen with Lashawn Austin, Nurse Practitioner. DATE OF SERVICE: 06/16/18 SUBJECTIVE: This 83 year old WHITE/ F was hospitalized 06/15/18. The patient is sitting on the side of the bed, alert. She is very weak and short of breath. Chest x-ray shows no pneumonia. REVIEW OF SYSTEMS: CONSTITUTIONAL: Weakness. No night sweats. No malaise, lethargy. No fever or chills. HEENT: Eyes: No visual changes. No eye pain. No eye discharge. ENT: No runny nose. No epistaxis. No sinus pain. No odynophagia. No congestion. RESPIRATORY: Positive for cough, congestion and shortness of breath. No hemoptysis. No shortness of breath. CARDIOVASCULAR: No angina symptoms. No CHF symptoms. No atypical chest pain for CAD. No palpitations. No orthopnea.. GASTROINTESTINAL: No abdominal pain. No nausea or vomiting. No diarrhea or constipation. No hematemesis. No hematochezia. GENITOURINARY: No urgency. No frequency. No dysuria. No hematuria. No obstructive symptoms. No discharge. No pain. No significant abnormal bleeding. MUSCULOSKELETAL: No musculoskeletal pain; no joint swelling. NEUROLOGICAL: Awake, alert, oriented to time, place and person. No headache. No neck pain. No syncope. No seizures. No dizziness. PSYCHIATRIC: Not anxious. No depression. No suicidal thoughts. No homicidal thoughts. SKIN: No rash. No lesions. No wounds. ENDOCRINE: No unexplained weight loss. No weight gain. HEMATOLOGIC/LYMPHATIC: No anemia. No purpura. No petechiae. No prolonged or excessive bleeding. No palpable lymph nodes. PHYSICAL EXAMINATION: GENERAL: The patient is awake, alert and oriented, sitting in bed in no distress. VITAL SIGNS: Temperature 97.7 F, Pulse 85, Respiratory Rate 18, BP 137/62, Pulse Ox 98% HEENT: Head normocephalic, atraumatic. Eyes: Extraocular muscles are intact. Pupils are equal, round and reactive to light and accommodation. Ears: No lesions. Nose appeared normal. Throat: No exudate or erythema. NECK: Supple. No JVD, no carotid bruit. No lymphadenopathy or thyromegaly. LUNGS: Diminished breath sounds with bilateral rhonchi. Percussion note normal. Chest symmetrical. HEART: Irregular heart rate. S1, S2, no S3. No murmurs. No cyanosis or clubbing. No ascites. Pulses: Dorsalis pedis and posterior tibial pulses +1 to +2 both sides. ABDOMEN: Soft. Non-tender. Bowel sounds active. No CVA tenderness. No mass felt. EXTREMITIES: No edema. Full range of motion of all extremities, equal. NEUROLOGIC: No focal deficit. Cranial nerves II through XII are grossly intact. No headache, no double vision or headache. SKIN: Not dry. Intact. Turgor-normal. LYMPHATIC: No palpable lymph nodes/no lymphedema. MUSCULOSKELETAL: Normal joints with no swelling. Muscle tone is normal. LAB REVIEW: 06/15/18 12:15 06/15/18 12:15 06/15/18 20:03: Total Creatine Kinase 41, Troponin I 0.0200 06/15/18 15:20: Urine Color Yellow, Urine Clarity Clear, Urine pH 7.0, Ur Specific [place] 1.010, Urine Protein Negative, Urine Glucose (UA) 2+, Urine Ketones Negative, Urine Blood Trace-intact, Urine Nitrite Negative, Urine Bilirubin Negative, Urine Urobilinogen 0.2, Ur Leukocyte Esterase Negative, Urine Microscopic RBC 2-5, Ur Squamous Epith Cells 0-2 06/15/18 12:15: Sodium 137, Potassium 4.2, Chloride 100, Carbon Dioxide 28, Anion Gap 13.2, BUN 17, Creatinine 0.71, Estimated GFR (MDRD) 79.00, BUN/ Creatinine Ratio 23.94, Glucose 241 H, Calcium 9.7, Total Bilirubin 0.4, AST 16 , ALT 17, Alkaline Phosphatase 67, Total Creatine Kinase 41, Troponin I 0.0200, Total Protein 7.0, Albumin 3.3 L, Globulin 3.7, Albumin/Globulin Ratio 0.89, TSH 0.576, Free T4 1.01, Digoxin 0.75 L 06/15/18 12:15: WBC 16.94 H, RBC 4.74, Hgb 14.7, Hct 43.4, MCV 91.6, MCH 31.0, MCHC 33.9, RDW Coeff of [place] 12.3, Plt Count 207, Immature Gran % (Auto) 0.5, Neut % (Auto) 67.5, Lymph % (Auto) 22.1, [place] % (Auto) 9.6, Eos % (Auto) 0.1, Baso % (Auto) 0.2, Immature Gran # (Auto) 0.1, Neut # (Auto) 11.4 H, Lymph # ( Auto) 3.8 H, [place] # (Auto) 1.6, Eos # (Auto) 0.0, Baso # (Auto) 0.0 06/15/18 12:15: Hemoglobin A1c 6.8 H 06/15/18 12:13: Puncture Site Rbrach, O2 Saturation 90.0 L, ABG pH 7.392, ABG pCO2 50.8 H, ABG pO2 62.0 L, ABG HCO3 30.2 H, ABG Total CO2 32 H, ABG Base Excess 5 H, FiO2 % 21.0 ASSESSMENT: 1. ACUTE BRONCHITIS 2. SEVERE COPD WITH EXACERBATION 3. ATRIAL FIBRILLATION 4. GENERALIZED WEAKNESS PLAN: 1. Regular diet 2. Daily INR 3. Decrease IV fluids to 50 mL Plan and coordination of the patient's care discussed in the presence of Oncology Social Work and nurse. CONDITION: Stable SCRIBED BY: JACLYN ANDRADE Talent Analyst scribed while in presence of service performed by Dr. Bello/Lashawn Austin APRN on 06/16/18 ([id number])
[2018-06-16] MEDS: CALAN SR PO SCH ×2 (09:04→16:36)
[2018-06-16] MEDS: LANOXIN PO SCH (09:04)
[2018-06-16] MEDS: LEVEMIR SUBCUT SCH (09:05)
[2018-06-16] MEDS: ASPIRIN EC PO SCH (09:05)
[2018-06-16] MEDS: COZAAR PO SCH (09:05)
[2018-06-16] MEDS: XANAX PO SCH ×2 (09:05→14:44)
--- NOTE | 2018-06-16 10:55 | HP ---
DATE OF SERVICE: 06/15/18 REASON FOR HOSPITALIZATION/HISTORY OF PRESENT ILLNESS: Seen yesterday with bronchitis in the office, on steroids. Shortness of breath with minima exertion was advised hospitalization - she declined. No PND, No orthopnea, No angina. Appetite OK. PAST MEDICAL HISTORY: COPD Chronic bronchitis Hypertension Diabetes Mellitus type 2 Anemia Atrial fibrillation Smoking Pulmonary nodule PAD CAD/CABGS PAST SURGICAL HISTORY: CABG Colonoscopy 05/21 Dr. Haider Pink REVIEW OF SYSTEMS: CONSTITUTIONAL: No fever, Fatigue. HEENT: Sinus drainage, no sore throat. RESPIRATORY: Cough, no congestion. CARDIOVASCULAR: Atypical chest pain for coronary artery disease. No angina, CHF symptoms, palpitations. Shortness of breath with minimal exertion. GASTROINTESTINAL: No melena or abdominal pain. No GERD. GENITOURINARY: No hematuria, no prostatism, no polyuria. 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 MUSCULOSKELETAL: Osteoarthritis pain, no joint swelling. ENDOCRINE: No weight loss, no weight gain. SKIN: Not dry, no rash. PSYCHIATRIC: Anxious, no depression, no suicidal thoughts, no homicidal thoughts. SOCIAL HISTORY: Marital Status: . Alcohol Usage: No. Tobacco Usage: Yes. FAMILY HISTORY: Father Mother Brother 4 Sister 4 MEDICATIONS: Coumadin 4mg Po daily Gabapentin 300mg PO three times a day at HS Levemir 15 units AM, 9pm two times per day ProAir two puffs every 4 hours as needed Alprazolam 0.25mg PO daily PRN Verapamil 180mg PO twice time a day Cozaar 25mg PO daily Simvastatin 40mg PO daily Hydrocodone-acetaminophen 10-325mg PO every 12 hours PRN Ipratropium-albuterol 0.5mg inhale 3mililiters four times a day PRN Digox 125mcg PO daily Aspirin 81mg PO daily ALLERGIES: No known allergies PHYSICAL EXAMINATION: V/S: Pulse 100, blood pressure 142/70, temperature 96.8, oxygen saturation 92% . Height 5'3, BMI 17.9 and weight 101.4. GENERAL APPEARANCE: Oriented times three. HEENT: Normal. NECK: No JVP, no bruits. RESPIRATORY: Decreased breath sounds with mild wheezing. CARDIOVASCULAR: S1, S2, no S3, no murmurs. No cyanosis, clubbing. No ascites. GI/ABDOMEN: No tenderness. Bowel sounds are active. EXTREMITIES: edema, pulses +1, equal. MIDDLE SCHOOL FOOTBALL COACH: Deep tendon reflexes, sensory, motor and gait all normal. RECTAL: Dr. Maloney 05/21/PELVIC: Advised yearly, Mammogram 09/21. ASSESSMENT: 1. Acute bronchitis/Pleuritis pain right sided 2. Severe COPD 3. Pulmonary nodule 4. Chronic bronchitis 5. Hypertension 6. Smoking 7. Diabetes mellitus type 2 06/07/18 A1c (6.4) 8. Anemia 9. Atrial fibrillation 10. PAD Dr. Haas 11.CAD with stent 2007 12.CABG 1997 PLAN: 1. Admit regular 2. Diet regular 3. Routine telemetry orders 4. Solu-Cortef 125mg IV now and Q 8 hours 5. Levaquin 500mg IV now and daily AM 6. ABG/oxygen 2 liters nasal cannula 7. Sputum for culture 8. NEBS-Xopenex four times a day Q 6 hours 9. Pulmicort twice a day 10.T4 TSH 11.A1c 12.1000cc D 5 1/2 normal saline 12 hourly 13.Daily CBC/CMP 14.Lanoxin level 15.Daily INR 16.Xanax .25mg PO three times a day TIME SPENT: More than 70 minutes. MTDD
[2018-06-16] MEDS: COUMADIN PO SCH (16:26)
[2018-06-16] MEDS: ZOCOR PO SCH (16:26)
[2018-06-16] MEDS ORDERED: NON-FORMULARY MEDICATION (Warfarin Sodium [Coumadin] 4 MG) PO SCH (17:00)
[2018-06-16] MEDS ORDERED: NON-FORMULARY MEDICATION (Simvastatin [Zocor] 40 MG) PO SCH (17:00)
[2018-06-17] MEDS: LEVEMIR SUBCUT SCH ×4 (03:55→23:18)
[2018-06-17] MEDS: NEURONTIN PO SCH ×2 (03:55→23:20)
[2018-06-17] MEDS: SOLU-CORTEF 250 MG IVP SCH ×4 (03:56→23:16)
[2018-06-17] MEDS: XANAX PO SCH ×4 (03:56→23:14)
[2018-06-17] MEDS: XOPENEX 1.25 MG NEB SCH ×4 (05:18→22:02)
[2018-06-17] MEDS: PULMICORT 0.5 MG/2 ML NEB SCH ×3 (06:00→22:02)
[2018-06-17] MEDS: DEXTROSE 5%-1/2NS IV SOLUTION 1,000 ML IV SCH ×2 (06:06→06:15)
[2018-06-17] MEDS: HUMULIN R SUBCUT PRN (06:14)
[2018-06-17] MEDS: CALAN SR PO SCH ×2 (08:58→16:35)
[2018-06-17] MEDS: LEVAQUIN 500 MG in PREMIX 100 ML D5W 1 BAG IV SCH (08:58)
[2018-06-17] MEDS: COZAAR PO SCH (08:58)
[2018-06-17] MEDS: ASPIRIN EC PO SCH (08:58)
[2018-06-17] MEDS: LANOXIN PO SCH (08:58)
[2018-06-17] MEDS: MUCINEX PO SCH ×2 (09:02→23:14)
--- NOTE | 2018-06-17 09:29 | PCM.PROG ---
Attending Provider: ATTENDING PROVIDER: Dr. SAMUEL BELLO This patient is seen with Lashawn Austin, Nurse Practitioner. DATE OF SERVICE: 06/17/18 SUBJECTIVE: This 83 year old WHITE/ F was hospitalized 06/15/18. The patient is lying in bed, alert. She is still short of breath and wheezing. She has been eating well. She still needs assistance to get out of bed and is very weak. REVIEW OF SYSTEMS: CONSTITUTIONAL: Weakness. No night sweats. No malaise, lethargy. No fever or chills. HEENT: Eyes: No visual changes. No eye pain. No eye discharge. ENT: No runny nose. No epistaxis. No sinus pain. No odynophagia. No congestion. RESPIRATORY: Less cough. No hemoptysis. Shortness of breath, wheezing. CARDIOVASCULAR: No angina symptoms. No CHF symptoms. No atypical chest pain for CAD. No palpitations. No orthopnea.. GASTROINTESTINAL: Appetite is good. No abdominal pain. No nausea or vomiting. No diarrhea or constipation. No hematemesis. No hematochezia. GENITOURINARY: No urgency. No frequency. No dysuria. No hematuria. No obstructive symptoms. No discharge. No pain. No significant abnormal bleeding. MUSCULOSKELETAL: No musculoskeletal pain; no joint swelling. NEUROLOGICAL: Awake, alert, oriented to time, place and person. No headache. No neck pain. No syncope. No seizures. No dizziness. PSYCHIATRIC: Not anxious. No depression. No suicidal thoughts. No homicidal thoughts. SKIN: No rash. No lesions. No wounds. ENDOCRINE: No unexplained weight loss. No weight gain. HEMATOLOGIC/LYMPHATIC: No anemia. No purpura. No petechiae. No prolonged or excessive bleeding. No palpable lymph nodes. PHYSICAL EXAMINATION: GENERAL: The patient is awake, alert and oriented, lying in bed in no distress. VITAL SIGNS: Temperature 97.7 F, Pulse 82, Respiratory Rate 16, BP 125/55, Pulse Ox 95% HEENT: Head normocephalic, atraumatic. Eyes: Extraocular muscles are intact. Pupils are equal, round and reactive to light and accommodation. Ears: No lesions. Nose appeared normal. Throat: No exudate or erythema. NECK: Supple. No JVD, no carotid bruit. No lymphadenopathy or thyromegaly. LUNGS: Severely diminished breath sounds with bilateral rhonchi, inspiratory and expiratory wheezing. Percussion note normal. Chest symmetrical. HEART: S1, S2, no S3. No murmurs. No cyanosis or clubbing. No ascites. Pulses: Dorsalis pedis and posterior tibial pulses +1 to +2 both sides. ABDOMEN: Soft. Non-tender. Bowel sounds active. No CVA tenderness. No mass felt. EXTREMITIES: No edema. Full range of motion of all extremities, equal. NEUROLOGIC: No focal deficit. Cranial nerves II through XII are grossly intact. No headache, no double vision or headache. SKIN: Not dry. Intact. Turgor-normal. LYMPHATIC: No palpable lymph nodes/no lymphedema. MUSCULOSKELETAL: Normal joints with no swelling. Muscle tone is normal. LAB REVIEW: 06/17/18 05:10 06/17/18 05:10 06/17/18 05:10: Sodium 139, Potassium 3.8, Chloride 104, Carbon Dioxide 28, Anion Gap 10.8, BUN 14, Creatinine 0.64, Estimated GFR (MDRD) 89.00, BUN/ Creatinine Ratio 21.87, Glucose 235 H D, Calcium 8.9, Total Bilirubin 0.3, AST 12 L, ALT 15, Alkaline Phosphatase 51 L, Total Protein 5.5 L, Albumin 2.7 L, Globulin 2.8, Albumin/Globulin Ratio 0.96 06/17/18 05:10: PT 27.4 H, INR 2.82 06/17/18 05:10: WBC 9.52, RBC 3.96 L, Hgb 12.4, Hct 36.7 L, MCV 92.7, MCH 31.3 H , MCHC 33.8, RDW Coeff of [place] 12.3, Plt Count 156, Immature Gran % (Auto) 0.5, Neut % (Auto) 79.7, Lymph % (Auto) 14.0, [place] % (Auto) 5.7, Eos % (Auto) 0.0, Baso % (Auto) 0.1, Immature Gran # (Auto) 0.1, Neut # (Auto) 7.6 H, Lymph # ( Auto) 1.3, [place] # (Auto) 0.5, Eos # (Auto) 0.0, Baso # (Auto) 0.0 06/16/18 13:36: Sodium 136, Potassium 4.1, Chloride 99, Carbon Dioxide 27, Anion Gap 14.1, BUN 14, Creatinine 0.91, Estimated GFR (MDRD) 59.00, BUN/ Creatinine Ratio 15.38, Glucose 325 H, Calcium 9.3, Total Bilirubin 0.3, AST 14 L, ALT 17, Alkaline Phosphatase 60, Total Protein 6.4, Albumin 3.0 L, Globulin 3.4, Albumin/Globulin Ratio 0.88 06/16/18 13:36: PT 25.2 H, INR 2.59 06/16/18 13:36: WBC 9.92 D, RBC 4.27, Hgb 13.3, Hct 39.6, MCV 92.7, MCH 31.1 H , MCHC 33.6, RDW Coeff of [place] 12.3, Plt Count 177, Immature Gran % (Auto) 0.6, Neut % (Auto) 80.2, Lymph % (Auto) 11.7, [place] % (Auto) 7.4, Eos % (Auto) 0.0, Baso % (Auto) 0.1, Immature Gran # (Auto) 0.1, Neut # (Auto) 8.0 H, Lymph # ( Auto) 1.2, [place] # (Auto) 0.7, Eos # (Auto) 0.0, Baso # (Auto) 0.0 ASSESSMENT: 1. ACUTE BRONCHITIS 2. SEVERE COPD WITH EXACERBATION 3. ATRIAL FIBRILLATION 4. GENERALIZED WEAKNESS PLAN: 1. Guafenesin 600 mg twice a day 2. D/C IV fluids 3. Check to see when last echocardiogram was done Plan and coordination of the patient's care discussed in the presence of Dairy Specialist and nurse. CONDITION: Stable SCRIBED BY: JACLYN ANDRADE Posting Machine Operator scribed while in presence of service performed by Dr. Bello/Lashawn Austin APRN on 06/17/18 ([id number])
[2018-06-17] MEDS: INVANZ 1 GM in SODIUM CHLORIDE 50 ML IV SCH (14:45)
[2018-06-17] MEDS: ZOCOR PO SCH (16:35)
[2018-06-17] MEDS: COUMADIN PO SCH (16:35)
[2018-06-18] MEDS: PULMICORT 0.5 MG/2 ML NEB SCH (04:30)
[2018-06-18] MEDS: XOPENEX 1.25 MG NEB SCH ×2 (04:30→11:05)
[2018-06-18] MEDS: SOLU-CORTEF 250 MG IVP SCH ×2 (05:21→13:03)
[2018-06-18] MEDS: INVANZ 1 GM in SODIUM CHLORIDE 50 ML IV SCH (09:16)
[2018-06-18] MEDS: ASPIRIN EC PO SCH (09:16)
[2018-06-18] MEDS: COZAAR PO SCH (09:17)
[2018-06-18] MEDS: XANAX PO SCH (09:17)
[2018-06-18] MEDS: CALAN SR PO SCH (09:17)
[2018-06-18] MEDS: MUCINEX PO SCH (09:18)
[2018-06-18] MEDS: LANOXIN PO SCH (09:18)
[2018-06-18] MEDS: LEVEMIR SUBCUT SCH (09:19)
[2018-06-18 10:59] VITALS: BP 123/65; TEMP 97.3
[2018-06-18] MEDS: HUMULIN R SUBCUT PRN (12:44)
--- NOTE | 2018-06-21 10:53 | PN ---
DATE OF SERVICE: 06/18/18 SUBJECTIVE: The patient was seen and examined with the nurse practitioner. She is an 83-year -old white female who is being treated for acute bronchitis. Her condition is slowly improving. Her appetite has improved. She is up and about. PHYSICAL EXAMINATION: HEENT: Head normocephalic, atraumatic. Eyes: Extraocular muscles are intact. Pupils are equal, round and reactive to light and accommodation. Ears: No lesions. Nose appeared normal. Throat: No exudate or erythema. NECK: Supple. No JVD, no carotid bruit. No lymphadenopathy or thyromegaly. LUNGS: Clear to auscultation. Percussion note normal. Chest symmetrical. HEART: S1, S2, no S3. No murmurs. No cyanosis or clubbing. No ascites. Pulses: Dorsalis pedis and posterior tibial pulses +1 to +2 both sides. ABDOMEN: Soft. Nontender. Bowel sounds active. No CVA tenderness. No mass felt. EXTREMITIES: No edema. Full range of motion of all extremities, equal. NEUROLOGIC: No focal deficit. Cranial nerves II through XII are grossly intact. No headache, no double vision or headache. SKIN: Not dry. Intact. Turgor - normal. LYMPHATIC: No palpable lymph nodes/no lymphedema. MUSCULOSKELETAL: Normal joints with no swelling. Muscle tone is normal. Counseling for smoking done. The patient's condition is stable. TIME SPENT: More than 30 minutes. Plan and coordination of the patient's care discussed in the presence of nurse. STEFANO
--- NOTE | 2018-06-21 14:32 | PN ---
DATE OF SERVICE: 06/16/18 SUBJECTIVE: The patient is doing well, up and about. She is still weak, coughing with chronic bronchitis. She is a heavy smoker with a lot of medical problems like coronary artery bypass surgery, atherosclerosis, generalized severe chronic lung disease, hypertension, dyslipidemia, diabetes, noncompliance. PLAN: 1. Continue antibiotics, steroids. 2. The side effects of steroids including avascular necrosis of the femoral head discussed. The patient was seen and examined with the nurse practitioner. TIME SPENT: More than 30 minutes. Plan and coordination of the patient's care discussed in the presence of nurse. STEFANO
--- NOTE | 2018-06-21 14:35 | PN ---
DATE OF SERVICE: 06/17/18 SUBJECTIVE: The patient is still weak, tired, coughing much less. No PND, no orthopnea. Cardiovascular status stable with no evidence of CHF or coronary insufficiency. The patient's main problem is respiratory with mild wheeze and decreased lung capacity. Counseling for smoking done. PHYSICAL EXAMINATION: HEENT: Head normocephalic, atraumatic. Eyes: Extraocular muscles are intact. Pupils are equal, round and reactive to light and accommodation. Ears: No lesions. Nose appeared normal. Throat: No exudate or erythema. NECK: Supple. No JVD, no carotid bruit. No lymphadenopathy or thyromegaly. LUNGS: Decreased breath sounds, better air entry than day before yesterday. HEART: S1, S2, no S3. No murmurs. No cyanosis or clubbing. No ascites. Pulses: Dorsalis pedis and posterior tibial pulses +1 to +2 both sides. ABDOMEN: Soft. Nontender. Bowel sounds active. No CVA tenderness. No mass felt. EXTREMITIES: No edema. Full range of motion of all extremities, equal. NEUROLOGIC: No focal deficit. Cranial nerves II through XII are grossly intact. No headache, no double vision or headache. SKIN: Not dry. Intact. Turgor - normal. LYMPHATIC: No palpable lymph nodes/no lymphedema. MUSCULOSKELETAL: Normal joints with no swelling. Muscle tone is normal. CONDITION: Stable. The patient was seen and examined with the nurse practitioner. TIME SPENT: More than 30 minutes. Plan and coordination of the patient's care discussed in the presence of nurse. STEFANO
--- NOTE | 2018-06-22 14:07 | DS ---
DATE OF SERVICE: 06/18/18 (DISCHARGED FROM ACUTE TO SWING) FINAL DIAGNOSIS: 1. ACUTE BRONCHITIS WITH POSITIVE ESBL SPUTUM 2. SEVERE COPD WITH EXACERBATION 3. ATRIAL FIBRILLATION 4. HYPERTENSION 5. DYSLIPIDEMIA 6. CORONARY ARTERY DISEASE 7. DIABETES MELLITUS TYPE 2 8. OSTEOARTHRITIS 9. HEAVY SMOKER DISCHARGE INSTRUCTIONS: The patient is discharged to swing bed for continued IV antibiotics, PT and OT. MEDICATIONS AT DISCHARGE: K-Dur 20 mEq p.o. b.i.d. Prednisone 20 mg p.o. t.i.d. with meal Mucomyst with nebs b.i.d. Neurontin 300-600 mg p.o. bedtime Zocor 40 mg p.o. q.p.m. Verapamil 180 mg p.o. b.i.d. Lanoxin 125 mcg p.o. daily Aspirin 81 mg p.o. daily with meal Coumadin 4 mg p.o. daily Duoneb one vial INH q.i.d. p.r.n. Cozaar 25 mg p.o. daily Levemir 9 units subcut 2100 Hydrocodone/Acetaminophen one tab p.o. q.12h p.r.n. Alprazolam 0.25 mg p.o. daily p.r.n.\ Insulin (Levemir) 15 unit subcut 0900 Albuterol two puff IH q.4h p.r.n. NEW PRESCRIPTIONS: None DIET INSTRUCTIONS: Regular ACTIVITY: As patient tolerates. SMOKING: Smoking cessation discussed. DISEASE SPECIFIC EDUCATION: Admission to swing bed, patient agreeable. HOSPITAL COURSE: 83-year-old white female with a long history of COPD has been treated as an outpatient in our office for the past two weeks with Keflex and Decadron who presented to our office with worsening shortness of breath and cough. She was very weak. She agreed to be admitted. Chest x-ray shows no pneumonia although clinically she appears to have significant congestion. She was short of breath. She does not wear oxygen continuously but has had to over the past week. She is very weak. She is not eating. She has lost weight. She was admitted from our office, placed on Rocephin 1 gm IV daily along with Zithromax 500 mg p.o. daily. Chest x-ray again showed no pneumonia. She was started on Solu-Cortef 125 mg IV q.8hr as well as Xopenex 1.25 q.6hr scheduled and Pulmicort 1 mg b.i.d. nebulization treatment. For the first 48 hours she did not clinically improve very much. She is still very weak. Yesterday morning she had not gotten out of bed. She was still very very wheezy, very congested and short of breath. Her INR has slightly increased while she was here, was 2.8. Vital signs were stable although she has been having to wear oxygen continuously. She had not been eating. We found out that the sputum culture was positive for E. coli as well as positive for ESBL so we will discontinue the Zithromax and we will place her on Invanz IV antibiotics daily as well as continue her telemetry due to repeat chest x-ray. All of her other medications will remain the same but due to contagiousness of the ESBL and the slow improvement, her long history of severe COPD and her slow improvement with this generalized weakness, we will discharge her from acute and admit her to swing bed for IV antibiotics, PT and OT. Information has been given to her regarding smoking cessation. TIME SPENT: More than 60 minutes. STEFANO
== END 2018-06-18 13:27 | disposition swing bed (61) | DRG 192 ==
LOC: MEDSURG B 11:12
PROVIDERS: ADMIT Internal Medicine; ATTEND Internal Medicine
DX: J44.1 Chronic obstructive pulmonary disease with (acute) exacerbation (principal); I48.91 Unspecified atrial fibrillation; I10 Essential (primary) hypertension; I25.10 Atherosclerotic heart disease of native coronary artery without angina pectoris; E78.5 Hyperlipidemia, unspecified; E11.9 Type 2 diabetes mellitus without complications; M19.90 Unspecified osteoarthritis, unspecified site; R06.02 Shortness of breath; R53.1 Weakness; R07.81 Pleurodynia; R91.8 Other nonspecific abnormal finding of lung field; J42 Unspecified chronic bronchitis; Z79.01 Long term (current) use of anticoagulants; Z79.4 Long term (current) use of insulin; Z72.0 Tobacco use
CPT/HCPCS: 36415; 80053; 80162; 81001; 82550; 82803; 82962; 83036; 84439; 84443; 84484; 85025; 85610; 87070; 87186; 93005; 93010; 94640; 97802

== ENCOUNTER 2018-06-18 13:32 | Inpatient (IN) | payer OTHER ==
[2018-06-18] MEDS ORDERED: NORCO 10-325 PO PRN (13:41)
[2018-06-18] MEDS ORDERED: PROAIR HFA IH PRN (13:41)
[2018-06-18] MEDS ORDERED: TYLENOL PO PRN (13:52)
[2018-06-18] MEDS ORDERED: ATROPINE SULFATE PFS IVP PRN (13:53)
[2018-06-18] MEDS ORDERED: VISTARIL INJ IM PRN (13:57)
[2018-06-18] MEDS ORDERED: MORPHINE 4 MG/ML SYRINGE IVP PRN (13:59)
[2018-06-18] MEDS ORDERED: NITROSTAT SL PRN (14:00)
--- NOTE | 2018-06-18 15:06 | DI ---
EXAM: Two views of the chest. History: Chest pain. Comparison: Chest radiograph 82,018 Findings: Atherosclerotic vascular calcifications. Sternotomy wires. There is bronchial wall thick ening. No consolidated pneumonia. No appreciable pleural fluid and no pneumothorax. No acute osseo us abnormalities. Heart size is normal Impression: Bronchial wall thickening but no consolidated pneumonia.
[2018-06-18 15:37] VITALS: BMI 18.8
[2018-06-18] MEDS: COUMADIN PO SCH (16:55)
[2018-06-18] MEDS: CALAN SR PO SCH (16:55)
[2018-06-18] MEDS: ZOCOR PO SCH (16:56)
[2018-06-18] MEDS: XANAX PO SCH ×2 (16:56→21:24)
[2018-06-18] MEDS ORDERED: NON-FORMULARY MEDICATION (Simvastatin [Zocor] 40 MG) PO SCH (17:00)
[2018-06-18] MEDS ORDERED: CALAN SR PO SCH (17:00)
[2018-06-18] MEDS: HUMULIN R SUBCUT PRN ×2 (17:07→21:24)
[2018-06-18] MEDS: PULMICORT 0.5 MG/2 ML NEB SCH (17:43)
[2018-06-18] MEDS: XOPENEX 1.25 MG NEB SCH ×2 (17:44→21:45)
[2018-06-18] MEDS: SOLU-CORTEF 250 MG IVP SCH (21:04)
[2018-06-18] MEDS: MUCINEX PO SCH (21:24)
[2018-06-18] MEDS: NEURONTIN PO SCH (21:24)
[2018-06-18] MEDS: LEVEMIR SUBCUT SCH (21:26)
[2018-06-19] MEDS: PULMICORT 0.5 MG/2 ML NEB SCH ×2 (05:04→17:11)
[2018-06-19] MEDS: XOPENEX 1.25 MG NEB SCH ×4 (05:04→21:40)
[2018-06-19] MEDS: SOLU-CORTEF 250 MG IVP SCH ×3 (05:21→20:38)
[2018-06-19] MEDS: COZAAR PO SCH (10:06)
[2018-06-19] MEDS: CALAN SR PO SCH ×2 (10:06→17:19)
[2018-06-19] MEDS: ASPIRIN EC PO SCH (10:06)
[2018-06-19] MEDS: MUCINEX PO SCH ×2 (10:06→21:00)
[2018-06-19] MEDS: LANOXIN PO SCH (10:07)
[2018-06-19] MEDS: XANAX PO SCH ×3 (10:08→21:00)
[2018-06-19] MEDS: LEVEMIR SUBCUT SCH ×2 (10:09→21:20)
[2018-06-19] MEDS: INVANZ 1 GM in SODIUM CHLORIDE 50 ML IV SCH (10:09)
[2018-06-19] MEDS: HUMULIN R SUBCUT PRN ×3 (13:47→21:19)
[2018-06-19] MEDS ORDERED: NON-FORMULARY MEDICATION (Warfarin Sodium [Coumadin] 4 MG) PO SCH (17:00)
[2018-06-19] MEDS: ZOCOR PO SCH (17:20)
[2018-06-19] MEDS: COUMADIN PO SCH (17:20)
[2018-06-19] MEDS: NEURONTIN PO SCH (21:00)
[2018-06-20] MEDS: XOPENEX 1.25 MG NEB SCH ×3 (04:54→17:00)
[2018-06-20] MEDS: PULMICORT 0.5 MG/2 ML NEB SCH ×2 (04:54→17:00)
[2018-06-20] MEDS: HUMULIN R SUBCUT PRN ×4 (05:29→20:55)
[2018-06-20] MEDS: SOLU-CORTEF 250 MG IVP SCH ×3 (05:34→20:35)
[2018-06-20] MEDS: ASPIRIN EC PO SCH (09:22)
[2018-06-20] MEDS: COZAAR PO SCH (09:22)
[2018-06-20] MEDS: CALAN SR PO SCH ×2 (09:22→16:37)
[2018-06-20] MEDS: INVANZ 1 GM in SODIUM CHLORIDE 50 ML IV SCH (09:22)
[2018-06-20] MEDS: LANOXIN PO SCH (09:22)
[2018-06-20] MEDS: LEVEMIR SUBCUT SCH ×2 (09:23→20:56)
[2018-06-20] MEDS: XANAX PO SCH ×3 (09:25→20:55)
[2018-06-20] MEDS: MUCINEX PO SCH ×2 (09:25→20:54)
--- NOTE | 2018-06-20 14:11 | HP ---
DATE OF SERVICE: 06/18/18 - ADMITTED TO SWING BED HISTORY OF PRESENT ILLNESS: This is an 83-year-old white female who is a heavy smoker with long history of COPD who is admitted for acute bronchitis. Sputum culture revealed she was positive for E. coli and ESBL in her sputum. We are going to be placing her in swing bed for IV antibiotics, Invanz, which she will continue to get. The patient's color has somewhat improved. She is still looking very frail. She has been up and about walking this morning, which is an improvement. She is still visibly short of breath and having to wear her oxygen the entire time. PAST MEDICAL HISTORY: Severe COPD (She intermittently wears oxygen) Chronic bronchitis Heavy smoker Atrial fibrillation, she is on Coumadin and Digoxin Diabetes Mellitus, Type 2, on insulin therapy Hypertension Dyslipidemia Pulmonary nodule PAD CAD/CABGs Anemia PAST SURGICAL HISTORY: CABG Colonoscopy 05/21/18, Dr. Maloney Hysterectomy REVIEW OF SYSTEMS: CONSTITUTIONAL: Weakness and fatigue. No night sweats. No malaise, lethargy. No fever or chills. HEENT: Eyes: No visual changes. No eye pain. No eye discharge. ENT: No runny nose. No epistaxis. No sinus pain. No sore throat. No odynophagia. No ear pain. No congestion. RESPIRATORY: Coughing, congestion. No hemoptysis. Shortness of breath. CARDIOVASCULAR: No angina symptoms. No CHF symptoms. No atypical chest pain for CAD. No palpitations. No PND. No orthopnea. GASTROINTESTINAL: No abdominal pain. No nausea or vomiting. No diarrhea or constipation. No hematemesis. No hematochezia. GENITOURINARY: No urgency. No frequency. No dysuria. No hematuria. No obstructive symptoms. No discharge. No pain. No significant abnormal bleeding. MUSCULOSKELETAL: No musculoskeletal pain. No joint swelling. No arthritis. NEUROLOGICAL: No headache. No neck pain. No syncope. No seizures. No dizziness. PSYCHIATRIC: Not anxious. No depression. No suicidal thoughts. No homicidal thoughts. SKIN: No rash. No lesions. No wounds. ENDOCRINE: No unexplained weight loss. No weight gain. HEMATOLOGIC/LYMPHATIC: No anemia. No purpura. No petechiae. No prolonged or excessive bleeding. No palpable lymph nodes. PERSONAL/FAMILY/SOCIAL HISTORY: She is a heavy smoker. She lives at home with her . She is raising her 9- year-old granddaughter. No alcohol or ilicit drug use. MEDICATIONS: Continue Xopenex neb treatments q.6hr along with Solu-Medrol 125 mg q.8hr. She gets Pulmicort neb treatments twice daily Neurontin 300-600 mg p.o. bedtime Zocor 40 mg p.o. q.p.m. Verapamil ER 180 mg p.o. b.i.d. Digoxin (Lanoxin) 125 mcg p.o. daily Aspirin 81 mg p.o. daily with meal 30 days Warfarin (Coumadin) 4 mg p.o. daily Cozaar 25 mg p.o. daily Levemir 9 units subcut 2100 Hydrocodone/Acetaminophen one tab p.o. q.12h p.r.n. Alprazolam 0.25 mg p.o. daily p.r.n. Levemir 15 units subcut 0900 Proair Hfa two puff IH q.4h p.r.n. ALLERGIES: FENOFIBRATE NANCRYSTALLIZED, FENOFIBRATE, MICRONIZED PHYSICAL EXAMINATION: VITAL SIGNS: Temperature 97.6, heart rate 71, respirations 14, BP 133/63, pulse ox 99% on 2L. HEENT: Head normocephalic, atraumatic. Eyes: Extraocular muscles are intact. Pupils are equal, round and reactive to light and accommodation. Ears: No lesions. Nose appeared normal. Throat: No exudate or erythema. NECK: Supple. No JVD, no carotid bruit. No lymphadenopathy or thyromegaly. LUNGS: Diminished breath sounds with rales on the left today, inspiratory and expiratory wheezing bilaterally. Percussion note normal. Chest symmetrical. HEART: S1, S2, no S3. No murmurs. No cyanosis or clubbing. No ascites. Pulses: Dorsalis pedis and posterior tibial pulses +1 to +2 bilaterally. ABDOMEN: Soft. Nontender. Bowel sounds active. No CVA tenderness. No mass felt. EXTREMITIES: No edema. Full range of motion of all extremities, equal. NEUROLOGIC: No focal deficit. Cranial nerves II through XII are grossly intact. No headache, no double vision or headache. SKIN: Not dry. Intact. Turgor - normal. LYMPHATIC: No palpable lymph nodes/no lymphedema. MUSCULOSKELETAL: Normal joints with no swelling. Muscle tone is normal. ASSESSMENT: 1. ACUTE BRONCHITIS WITH POSITIVE ESBL SPUTUM 2. CHRONIC OBSTRUCTIVE PULMONARY DISEASE WITH EXACERBATION 3. SHORTNESS OF BREATH 4. GENERALIZED WEAKNESS 5. ATRIAL FIBRILLATION 6. HYPERTENSION 7. DIABETES MELLITUS TYPE 2 8. CORONARY ARTERY DISEASE PLAN: 1. We will place the patient in the swing bed. 2. She will remain on telemetry for 48 hours. 3. Continue IV Invanz daily for the positive ESBL. 4. Will do a repeat chest x-ray today. 5. She is to have a daily INR. 6. INR yesterday was 2.8 (if it is greater than 3, will hold Coumadin today) 7. She is on a regular diet, she can eat whatever she would like. 8. Sliding scale for insulin. 9. Will continue all of her home medications and they all remain the same. 10. We will follow her closely while here. 11. Today on day of admission to swing bed she does seem slightly improved from yesterday. TIME SPENT: More than 70 minutes. STEFANO
[2018-06-20] MEDS: ZOCOR PO SCH (16:37)
[2018-06-20] MEDS: COUMADIN PO SCH (16:38)
[2018-06-20] MEDS: NEURONTIN PO SCH (20:54)
[2018-06-21] MEDS: XOPENEX 1.25 MG NEB SCH ×4 (00:05→17:05)
[2018-06-21] MEDS: PULMICORT 0.5 MG/2 ML NEB SCH ×2 (04:25→17:05)
[2018-06-21] MEDS: SOLU-CORTEF 250 MG IVP SCH ×3 (05:20→20:40)
[2018-06-21] MEDS: INVANZ 1 GM in SODIUM CHLORIDE 50 ML IV SCH (08:16)
[2018-06-21] MEDS: COZAAR PO SCH (08:17)
[2018-06-21] MEDS: LANOXIN PO SCH (08:17)
[2018-06-21] MEDS: XANAX PO SCH ×3 (08:18→20:36)
[2018-06-21] MEDS: MUCINEX PO SCH ×2 (08:18→20:36)
[2018-06-21] MEDS: ASPIRIN EC PO SCH (08:18)
[2018-06-21] MEDS: LEVEMIR SUBCUT SCH ×2 (08:18→20:37)
[2018-06-21] MEDS: CALAN SR PO SCH ×2 (08:18→16:37)
[2018-06-21] MEDS: HUMULIN R SUBCUT PRN ×3 (10:51→21:04)
--- NOTE | 2018-06-21 10:57 | PN ---
DATE OF SERVICE: 06/19/18 SUBJECTIVE: 83-year-old white female was hospitalized with bronchitis. The patient's condition has slowly improved. She is feeling better, getting stronger. PHYSICAL EXAMINATION: HEENT: Head normocephalic, atraumatic. Eyes: Extraocular muscles are intact. Pupils are equal, round and reactive to light and accommodation. Ears: No lesions. Nose appeared normal. Throat: No exudate or erythema. NECK: Supple. No JVD, no carotid bruit. No lymphadenopathy or thyromegaly. LUNGS: Decreased breath sounds but clear to auscultation. Percussion note normal. Chest symmetrical. HEART: S1, S2, no S3. No murmurs. No cyanosis or clubbing. No ascites. Pulses: Dorsalis pedis and posterior tibial pulses +1 to +2 both sides. ABDOMEN: Soft. Nontender. Bowel sounds active. No CVA tenderness. No mass felt. EXTREMITIES: No edema. Full range of motion of all extremities, equal. NEUROLOGIC: No focal deficit. Cranial nerves II through XII are grossly intact. No headache, no double vision or headache. SKIN: Not dry. Intact. Turgor - normal. LYMPHATIC: No palpable lymph nodes/no lymphedema. MUSCULOSKELETAL: Normal joints with no swelling. Muscle tone is normal. LABS: Hemoglobin 12, hematocrit 37, WBC 9,700, normal differential. Creatinine 0.5, BUN 20, potassium 3.5. ASSESSMENT: 1. ACUTE BRONCHITIS, RESOLVING 2. SEVERE CHRONIC LUNG DISEASE 3. CORONARY BYPASS SURGERY PLAN: 1. The patient is strongly advised to quit smoking. 2. Counseling for smoking done. 3. Continue antibiotics, steroids, nebs. The side effects of steroids discussed. TIME SPENT: More than 30 minutes. Plan and coordination of the patient's care discussed in the presence of nurse. STEFANO
--- NOTE | 2018-06-21 11:49 | PN ---
DATE OF SERVICE: 06/20/18 SUBJECTIVE: The patient was seen and examined with the nurse practitioner. The patient is in the swing bed. She has ESBL bronchitis which is being treated with Ertapenem class of medicine. Condition has improved. Appetite has improved. She hasn't been smoking while in the hospital. PHYSICAL EXAMINATION: HEENT: Head normocephalic, atraumatic. Eyes: Extraocular muscles are intact. Pupils are equal, round and reactive to light and accommodation. Ears: No lesions. Nose appeared normal. Throat: No exudate or erythema. NECK: Supple. No JVD, no carotid bruit. No lymphadenopathy or thyromegaly. LUNGS: Decreased breath sounds but good air entry. Clear to auscultation. Percussion note normal. Chest symmetrical. HEART: S1, S2, no S3. No murmurs. No cyanosis or clubbing. No ascites. Pulses: Dorsalis pedis and posterior tibial pulses +1 to +2 both sides. ABDOMEN: Soft. Nontender. Bowel sounds active. No CVA tenderness. No mass felt. EXTREMITIES: No edema. Full range of motion of all extremities, equal. NEUROLOGIC: No focal deficit. Cranial nerves II through XII are grossly intact. No headache, no double vision or headache. SKIN: Not dry. Intact. Turgor - normal. LYMPHATIC: No palpable lymph nodes/no lymphedema. MUSCULOSKELETAL: Normal joints with no swelling. Muscle tone is normal. CONDITION: Improving. TIME SPENT: More than 30 minutes. Plan and coordination of the patient's care discussed in the presence of nurse. STEFANO
[2018-06-21] MEDS: ZOCOR PO SCH (16:37)
[2018-06-21] MEDS: COUMADIN PO SCH (16:38)
[2018-06-21] MEDS: NEURONTIN PO SCH (20:36)
[2018-06-22] MEDS: XOPENEX 1.25 MG NEB SCH ×5 (00:44→23:10)
[2018-06-22] MEDS: SOLU-CORTEF 250 MG IVP SCH (04:31)
[2018-06-22] MEDS: PULMICORT 0.5 MG/2 ML NEB SCH ×2 (05:23→17:11)
--- NOTE | 2018-06-22 08:57 | PCM.PROG ---
Attending Provider: ATTENDING PROVIDER: Dr. SAMUEL BELLO This patient is seen with Lashawn Austin, Nurse Practitioner. DATE OF SERVICE: 06/22/18 SUBJECTIVE: This 83 year old WHITE/ F was hospitalized 06/15/18. The patient is lying in bed, alert, resting comfortably. She is more congested and wheezing today. She stated she started feeling weaker last night. REVIEW OF SYSTEMS: CONSTITUTIONAL: Weakness. No night sweats. No malaise, lethargy. No fever or chills. HEENT: Eyes: No visual changes. No eye pain. No eye discharge. ENT: No runny nose. No epistaxis. No sinus pain. No odynophagia. No congestion. RESPIRATORY: Cough and congestion with wheezing. No hemoptysis. No shortness of breath. CARDIOVASCULAR: No angina symptoms. No CHF symptoms. No atypical chest pain for CAD. No palpitations. No orthopnea.. GASTROINTESTINAL: No abdominal pain. No nausea or vomiting. No diarrhea or constipation. No hematemesis. No hematochezia. GENITOURINARY: No urgency. No frequency. No dysuria. No hematuria. No obstructive symptoms. No discharge. No pain. No significant abnormal bleeding. MUSCULOSKELETAL: No musculoskeletal pain; no joint swelling. NEUROLOGICAL: Awake, alert, oriented to time, place and person. No headache. No neck pain. No syncope. No seizures. No dizziness. PSYCHIATRIC: Not anxious. No depression. No suicidal thoughts. No homicidal thoughts. SKIN: No rash. No lesions. No wounds. ENDOCRINE: No unexplained weight loss. No weight gain. HEMATOLOGIC/LYMPHATIC: No anemia. No purpura. No petechiae. No prolonged or excessive bleeding. No palpable lymph nodes. PHYSICAL EXAMINATION: GENERAL: The patient is awake, alert and oriented, lying in bed in no distress. VITAL SIGNS: Temperature 97.3 F, Pulse 68, Respiratory Rate 14, BP 123/65, Pulse Ox 99% HEENT: Head normocephalic, atraumatic. Eyes: Extraocular muscles are intact. Pupils are equal, round and reactive to light and accommodation. Ears: No lesions. Nose appeared normal. Throat: No exudate or erythema. NECK: Supple. No JVD, no carotid bruit. No lymphadenopathy or thyromegaly. LUNGS: Diminished breath sounds with bilateral rhonchi with inspiratory and expiratory wheezing. Percussion note normal. Chest symmetrical. HEART: S1, S2, no S3. No murmurs. No cyanosis or clubbing. No ascites. Pulses: Dorsalis pedis and posterior tibial pulses +1 to +2 both sides. ABDOMEN: Soft. Non-tender. Bowel sounds active. No CVA tenderness. No mass felt. EXTREMITIES: No edema. Full range of motion of all extremities, equal. NEUROLOGIC: No focal deficit. Cranial nerves II through XII are grossly intact. No headache, no double vision or headache. SKIN: Not dry. Intact. Turgor-normal. LYMPHATIC: No palpable lymph nodes/no lymphedema. MUSCULOSKELETAL: Normal joints with no swelling. Muscle tone is normal. LAB REVIEW: 06/22/18 04:30 06/22/18 04:30 ASSESSMENT: 1. ACUTE BRONCHITIS - POSITIVE ESBL IN SPUTUM 2. SEVERE COPD WITH EXACERBATION 3. ATRIAL FIBRILLATION 4. GENERALIZED WEAKNESS PLAN: 1. Discontinue Solu-Cortef 2. Mucomyst twice a day 3. Prednisone 20 mg p.o. t.i.d. 4. Potassium 20 mEq b.i.d. Plan and coordination of the patient's care discussed in the presence of Street Contractor and nurse. CONDITION: Stable SCRIBED BY: Jaylene HIGHist scribed while in presence of service performed by Dr. Bello/Lashawn Austin APRN on 06/22/18 ([id number])
[2018-06-22] MEDS: LANOXIN PO SCH (09:16)
[2018-06-22] MEDS: CALAN SR PO SCH ×2 (09:16→18:04)
[2018-06-22] MEDS: ASPIRIN EC PO SCH (09:16)
[2018-06-22] MEDS: COZAAR PO SCH (09:17)
[2018-06-22] MEDS: INVANZ 1 GM in SODIUM CHLORIDE 50 ML IV SCH (09:17)
[2018-06-22] MEDS: MUCINEX PO SCH ×2 (09:17→20:34)
[2018-06-22] MEDS: XANAX PO SCH ×3 (09:17→20:33)
[2018-06-22] MEDS: LEVEMIR SUBCUT SCH ×2 (09:18→20:33)
[2018-06-22] MEDS: K-DUR PO SCH ×2 (09:19→18:07)
[2018-06-22] MEDS: MUCOMYST 20% NEB NEB SCH ×2 (11:15→23:08)
[2018-06-22] MEDS: HUMULIN R SUBCUT PRN ×3 (11:38→20:33)
[2018-06-22] MEDS: PREDNISONE PO SCH ×2 (12:05→18:07)
[2018-06-22] MEDS: COUMADIN PO SCH (18:04)
[2018-06-22] MEDS: ZOCOR PO SCH (18:04)
[2018-06-22] MEDS: NEURONTIN PO SCH (20:34)
[2018-06-23] MEDS: XOPENEX 1.25 MG NEB SCH ×2 (04:47→11:06)
[2018-06-23] MEDS: PULMICORT 0.5 MG/2 ML NEB SCH (04:47)
[2018-06-23 05:30] VITALS: BP 149/66; TEMP 97.7
--- NOTE | 2018-06-23 07:16 | PN ---
DATE OF SERVICE: 06/22/18 SUBJECTIVE: The patient was seen and examined with the Nurse Practitioner. The patient's condition has improved but last night she got congested. Continue steroids, NEBS treatment and antibiotics. She has ESBL bronchitis. CONDITION: Improving. TIME SPENT: More than 30 minutes. Plan and coordination of the patient's care discussed in the presence of nurse. STEFANO
[2018-06-23] MEDS: LEVEMIR SUBCUT SCH (09:11)
[2018-06-23] MEDS: PREDNISONE PO SCH (09:12)
[2018-06-23] MEDS: INVANZ 1 GM in SODIUM CHLORIDE 50 ML IV SCH (09:12)
[2018-06-23] MEDS: XANAX PO SCH (09:13)
[2018-06-23] MEDS: LANOXIN PO SCH (09:13)
[2018-06-23] MEDS: COZAAR PO SCH (09:13)
[2018-06-23] MEDS: MUCINEX PO SCH (09:13)
[2018-06-23] MEDS: K-DUR PO SCH (09:13)
[2018-06-23] MEDS: ASPIRIN EC PO SCH (09:13)
[2018-06-23] MEDS: CALAN SR PO SCH (09:13)
[2018-06-23] MEDS: MUCOMYST 20% NEB NEB SCH (11:05)
--- NOTE | 2018-06-23 11:33 | PCM.PROG ---
Attending Provider: ATTENDING PROVIDER: Dr. SAMUEL BELLO This patient is seen with Lashawn Austin, Nurse Practitioner. DATE OF SERVICE: 06/23/18 SUBJECTIVE: This 83 year old WHITE/ F was hospitalized 06/18/18. The patient is sitting up in bed, alert and states she is ready to go home. REVIEW OF SYSTEMS: CONSTITUTIONAL: No night sweats. No fatigue, malaise, lethargy. No fever or chills. HEENT: Eyes: No visual changes. No eye pain. No eye discharge. ENT: No runny nose. No epistaxis. No sinus pain. No odynophagia. No congestion. RESPIRATORY: Cough. No hemoptysis. Shortness of breath. CARDIOVASCULAR: No angina symptoms. No CHF symptoms. No atypical chest pain for CAD. No palpitations. No orthopnea.. GASTROINTESTINAL: No abdominal pain. No nausea or vomiting. No diarrhea or constipation. No hematemesis. No hematochezia. GENITOURINARY: No urgency. No frequency. No dysuria. No hematuria. No obstructive symptoms. No discharge. No pain. No significant abnormal bleeding. MUSCULOSKELETAL: No musculoskeletal pain; no joint swelling. NEUROLOGICAL: Awake, alert, oriented to time, place and person. No headache. No neck pain. No syncope. No seizures. No dizziness. PSYCHIATRIC: Not anxious. No depression. No suicidal thoughts. No homicidal thoughts. SKIN: No rash. No lesions. No wounds. ENDOCRINE: No unexplained weight loss. No weight gain. HEMATOLOGIC/LYMPHATIC: No anemia. No purpura. No petechiae. No prolonged or excessive bleeding. No palpable lymph nodes. PHYSICAL EXAMINATION: GENERAL: The patient is awake, alert and oriented, sitting in bed in no distress. VITAL SIGNS: Temperature 97.7 F, Pulse 75, Respiratory Rate 16, BP 149/66, Pulse Ox 99% HEENT: Head normocephalic, atraumatic. Eyes: Extraocular muscles are intact. Pupils are equal, round and reactive to light and accommodation. Ears: No lesions. Nose appeared normal. Throat: No exudate or erythema. NECK: Supple. No JVD, no carotid bruit. No lymphadenopathy or thyromegaly. LUNGS: Diminished breath sounds. Clear to auscultation. Percussion note normal. Chest symmetrical. HEART: Irregular heart rate. S1, S2, no S3. No murmurs. No cyanosis or clubbing. No ascites. Pulses: Dorsalis pedis and posterior tibial pulses +1 to +2 both sides. ABDOMEN: Soft. Non-tender. Bowel sounds active. No CVA tenderness. No mass felt. EXTREMITIES: No edema. Full range of motion of all extremities, equal. NEUROLOGIC: No focal deficit. Cranial nerves II through XII are grossly intact. No headache, no double vision or headache. SKIN: Not dry. Intact. Turgor-normal. LYMPHATIC: No palpable lymph nodes/no lymphedema. MUSCULOSKELETAL: Normal joints with no swelling. Muscle tone is normal. LAB REVIEW: 06/23/18 06:29 06/22/18 04:30 06/23/18 06:29: WBC 14.41 H D, RBC 4.46, Hgb 13.8, Hct 42.4 D, MCV 95.1, MCH 30.9, MCHC 32.5, RDW Coeff of [place] 12.6, Plt Count 152, Immature Gran % (Auto) 1.3, Neut % (Auto) 75.1, Lymph % (Auto) 14.4, [place] % (Auto) 9.0, Eos % (Auto) 0.0, Baso % (Auto) 0.2, Immature Gran # (Auto) 0.2, Neut # (Auto) 10.8 H, Lymph # (Auto) 2.1, [place] # (Auto) 1.3, Eos # (Auto) 0.0, Baso # (Auto) 0.0 ASSESSMENT: 1. ACUTE BRONCHITIS - POSITIVE ESBL IN SPUTUM 2. SEVERE COPD WITH EXACERBATION 3. ATRIAL FIBRILLATION 4. GENERALIZED WEAKNESS PLAN: 1. D/C home. 2. Advised to stay inside for a few days and rest. 3. Continue breathing treatments t.i.d. - will add Mucomyst regimen 4. CBC, CMP, and INR pending 5. See back in office next week with Dr. Bello/Lashawn Austin APRN. 6. Xanax 20 mg b.i.d. 7. Prednisone 20 mg t.i.d. times three days, then b.i.d. for three days, then daily for four days. 8. Continue p.o. antibiotics. 9. Instructed to rest, stay inside. Plan and coordination of the patient's care discussed in the presence of Lamp Assembler and nurse. CONDITION: Stable SCRIBED BY: JACLYN ANDRADE Plastic Technician scribed while in presence of service performed by Dr. Bello/Lashawn Austin APRN on 06/23/18 ([id number])
--- NOTE | 2018-06-23 12:09 | CM.DICTOOL ---
ADMISSION: 06/18/18 13:32 DISCHARGE: 06/23/18 DATE OF SERVICE: 06/23/18 FINAL DIAGNOSIS ACUTE BRONCHITIS SEVERE COPD WITH EXACERBATION A-FIB GENERALIZED WEAKNESS UTI (E-COLI, ESBL POSITIVE) HOSPITALIZATION AT [facility], 02/23 PULMONARY FIBROSIS HYPERTENSION CAD DYSLIPIDEMIA DM, TYPE 2 ANEMIA GERD GI BLEED, 2012 PERIPHERAL ARTERIAL DISEASE ANXIETY CABG, 3 VESSEL, 1996 STENT APPLICATION, 2000 HYSTERECTOMY CATARACT EXTRACTIONS CURRENT SMOKER 1 PPD FOR MANY YEARS ECHO, 02/27/18 [facility] LVEF 66% NORMAL 2-D AND M-MODE ECHO LAST VITALS Temp Pulse Resp BP Pulse Ox 97.7 F 84 16 149/66 H 99 06/23/18 05:29 06/23/18 09:13 06/23/18 05:29 06/23/18 05:29 06/23/18 05:29 TAKE THESE MEDICATIONS AT HOME Hydrocodone Bitart/Acetaminophen ([place] 10-325) 1 tab PO Q12H PRN PRN Reason: Pain Acetylcysteine (Mucomyst 20% Neb) 1 ml NEB BID with NITHIN [facility] (12 DAYS) Last Admin: 06/23/18 11:05 Dose: 1 ml Albuterol Sulfate (Proair Hfa) 2 puff IH Q4H PRN PRN Reason: SOA/wheezing Alprazolam (Xanax) 0.25 mg PO BID [facility] (#20) Last Admin: 06/23/18 09:13 Dose: 0.25 mg Amoxicillin/Potassium Clav (Augmentin 875-125 mg) 1 Tab PO BID X7 DAYS Aspirin (Aspirin Ec) 81 mg PO DAILYWM [facility] Last Admin: 06/23/18 09:13 Dose: 81 mg Budesonide/Formoterol Fumarate (Symbicort 160-4.5 mcg) Inhaler 2 Puffs BID Digoxin (Lanoxin) 125 mcg PO DAILY [facility] Last Admin: 06/23/18 09:13 Dose: 125 mcg Gabapentin (Neurontin) 300 - 600 mg PO BEDTIME [facility] Last Admin: 06/22/18 20:34 Dose: 300 mg Insulin Detemir (Levemir) 15 unit SUBCUT 0900 [facility] Last Admin: 06/23/18 09:11 Dose: 15 unit Insulin Detemir (Levemir) 9 unit SUBCUT 2100 [facility] Last Admin: 06/22/18 20:33 Dose: 9 unit Ipratropium/Albuterol (DUONEB) TID Losartan Potassium (Cozaar) 25 mg PO DAILY [facility] Last Admin: 06/23/18 09:13 Dose: 25 mg Prednisone (Prednisone) 20 mg PO TID X3 DAYS, BID X3 DAYS, THEN DAILY X4 DAYS Last Admin: 06/23/18 09:12 Dose: 20 mg Simvastatin (Zocor) 40 mg PO QPM [facility] Last Admin: 06/22/18 18:04 Dose: 40 mg Verapamil HCl (Calan Sr) 180 mg PO 0900,1700 [facility] Last Admin: 06/23/18 09:13 Dose: 180 mg Warfarin Sodium (Coumadin) 4 mg PO QPM [facility] (Skip 06/23/18 evening dose only) Last Admin: 06/22/18 18:04 Dose: 4 mg ALLERGIES fenofibrate nanocrystallized [From Tricor] Adverse Reaction (Verified 05/02/16 09:28) fenofibrate,micronized [From Tricor] Adverse Reaction (Verified 05/02/16 09:28) NEW PRESCRIPTIONS: Acetylcysteine Neb [Mucomyst 20% Neb] 1 ml NEB BID (Mix with DUONEBS) 12 Days ml 06/23/18 Alprazolam [Xanax] 0.25 mg PO BID #20 tablet 06/23/18 Amoxicillin/Potassium Clav [Augmentin 875-125 mg Tab] 1 tab PO BIDAC #14 tablet 06/23/18 Budesonide/Formoterol Fumarate [Symbicort 160-4.5 Mcg Inhaler] 2 puff IH BID ( Office Samples provided) Prednisone 20 mg PO DIRECTED #19 tablet 06/23/18 SMOKING: CURRENT EVERY DAY SMOKER THE PATIENT HAS BEEN PROVIDED INFORMATION REGARDING THE BENEFITS OF SMOKING CESSATION AND THE RISKS OF NONCOMPLIANCE. SHE HAS BEEN OFFERED A NICOTINE PATCH TO ASSIST WITH CESSATION. MS. HINOJOSA DECLINED THE ASSISTANCE. SHE HAS NOT MADE A COMMITMENT TO STOP SMOKING DESPITE KNOWLEDGE OF THE RISKS. WE WILL CONTINUE TO PROVIDE ENCOURAGEMENT AND REINFORCE EDUCATION FOR COMPLETE CESSATION DURING HER OFFICE VISITS. DISEASE SPECIFIC EDUCATION: ESBL/E.COLI UTI BRONCHITIS/COPD SWING BED ADMISSION SMOKING CESSATION HOME MEDICATIONS AND CHANGES NEW PRESCRIPTIONS ADVERSE EFFECTS POSSIBLE WITH LONG-TERM STEROID USE FOLLOW UP LAB REVIEW: 06/23/18 06:29 06/23/18 07:15 06/23/18 07:15: PT 31.7 H, INR 3.28 06/23/18 07:15: Sodium 140, Potassium 4.3, Chloride 104, Carbon Dioxide 30, Anion Gap 10.3, BUN 19 H, Creatinine 0.59 L, Estimated GFR (MDRD) 97.00, BUN/ Creatinine Ratio 32.20, Glucose 83, Calcium 8.7, Total Bilirubin 0.4, AST 27, ALT 37, Alkaline Phosphatase 56, Total Protein 5.6 L, Albumin 2.8 L, Globulin 2.8, Albumin/Globulin Ratio 1.00 06/23/18 06:29: WBC 14.41 H D, RBC 4.46, Hgb 13.8, Hct 42.4 D, MCV 95.1, MCH 30.9, MCHC 32.5, RDW Coeff of Leland 12.6, Plt Count 152, Immature Gran % (Auto) 1.3, Neut % (Auto) 75.1, Lymph % (Auto) 14.4, [place] % (Auto) 9.0, Eos % (Auto) 0.0, Baso % (Auto) 0.2, Immature Gran # (Auto) 0.2, Neut # (Auto) 10.8 H, Lymph # (Auto) 2.1, [place] # (Auto) 1.3, Eos # (Auto) 0.0, Baso # (Auto) 0.0 PLAN: DISCHARGE HOME TODAY, 06/23/[address] BELLO IN HIS OFFICE ON 06/29/18 AT 10:30 A.M. RESUME YOUR HOME MEDICATIONS PER LIST PROVIDED BY THE NURSING STAFF PLEASE NOTE THE INCREASE IN YOUR ALPRAZOLAM (XANAX) TO 0.25 MG BY MOUTH TWICE DAILY FOR 10 DAYS, THEN YOU MAY RETURN TO YOUR USUAL DOSE OF 0.25 MG BY MOUTH DAILY NEEDED (PRN) TAKE YOUR USUAL DUONEBS TWICE DAILY MIXED WITH THE MUCOMYST AND ONCE DAILY UNMIXED TO EQUAL A TOTAL OF THREE DUONEBS DAILY. INQUIRE WITH YOUR PHYSICIAN TO WHEN TO RESUME YOUR USUAL DUONEBS FOUR TIMES DAILY NEEDED (PRN) HOLD YOUR COUMADIN TODAY ONLY, 06/23/18 NEW PRESCRIPTIONS ACETYLCYSTEINE 20% 1 ML, ADMINISTER ONE BREATHING TREATMENT MIXED WITH YOUR DUONEBS TWICE DAILY FOR 12 DAYS PREDNISONE 20 MG THREE TIMES DAILY FOR 3 DAYS, THEN TWICE DAILY FOR 3 DAYS, THEN DAILY X4 DAYS, THEN STOP. TAKE WITH FOOD XANAX 0.25 MG, TAKE ONE TABLET BY MOUTH TWICE DAILY SYMBICORT 160-45 MCG, TAKE TWO PUFFS TWICE DAILY (OFFICE SAMPLES PROVIDED) AUGMENTIN 825-125 MG, TAKE ONE TABLET BY MOUTH TWICE DAILY WITH MEALS FOR 7 DAYS ONLY ACTIVITY REST COMPLETELY THROUGH THIS WEEKEND. STAY INSIDE, THEN GRADUALLY INCREASE YOUR ACTIVITY LEVEL ACCORDING TO YOUR TOLERATION STOP SMOKING DIET CONSISTENT CARBS SUMMARY THE PATIENT IS ALERT AND ORIENTED X3. SHE CURRENTLY RESIDES AT HOME WITH HER SPOUSE AND GRANDDAUGHTER, DUNCAN. SHE HAS BEEN INDEPENDENT WITH ADL'S PRIOR TO THIS STAY. SHE IS RELIANT ON HOME OXYGEN AND HAS A NEBULIZER AT HOME WELL. SHE DOES NOT QUALIFY FOR HOME HEALTH AND HAS NO HOMEMAKING SERVICES NOW. SHE DESIRES TO RETURN HOME AT DISCHARGE. THE PATIENT'S SKIN TURGOR IS INTACT AND WITHOUT DECUBITUS ULCERS AT DISCHARGE. NUTRITIONAL AND HYDRATION STATUS ARE IMPROVED. SHE IS AFEBRILE AND IS ABLE TO TOLERATE BEING UP AND ABOUT WITHOUT SIGNIFICANT SHORTNESS OF AIR. MS. HINOJOSA IS AWARE AND AGREEABLE FOR TODAY'S DISCHARGE PLANS. SHE WILL FOLLOW UP IN THE OFFICE NEXT WEEK NOTED ABOVE. CURRENT CODE STATUS FULL CODE KEAGAN AHUMADA APRN SAMUEL BELLO M.D.
[2018-06-23] MEDS: HUMULIN R SUBCUT PRN (12:44)
--- NOTE | 2018-06-24 07:29 | DS ---
DATE OF SERVICE: 06/23/18 FINAL DIAGNOSIS: ACUTE BRONCHITIS SEVERE COPD WITH EXACERBATION A-FIB GENERALIZED WEAKNESS UTI (E-COLI, ESBL POSITIVE) HOSPITALIZATION AT [facility], 02/23 PULMONARY FIBROSIS HYPERTENSION CAD DYSLIPIDEMIA DM, TYPE 2 ANEMIA GERD GI BLEED, 2012 PERIPHERAL ARTERIAL DISEASE ANXIETY CABG, 3 VESSEL, 1996 STENT APPLICATION, 2000 HYSTERECTOMY CATARACT EXTRACTIONS CURRENT SMOKER 1 PPD FOR MANY YEARS ECHO, 02/27/18 [facility] LVEF 66% NORMAL 2-D AND M-MODE ECHO LAST VITALS: Temp Pulse Resp BP Pulse Ox 97.7 F 84 16 149/66 H 99 TAKE THESE MEDICATIONS AT HOME: Hydrocodone Bitart/Acetaminophen ([place] 10-325) 1 tab PO Q12H PRN Acetylcysteine (Mucomyst 20% Neb) 1 ml NEB BID with DUONEBS [facility] (12 DAYS) Albuterol Sulfate (Proair Hfa) 2 puff IH Q4H PRN Alprazolam (Xanax) 0.25 mg PO BID [facility] (#20) Amoxicillin/Potassium Clav (Augmentin 875-125 mg) 1 Tab PO BID X7 DAYS Aspirin (Aspirin Ec) 81 mg PO DAILYWM [facility] Budesonide/Formoterol Fumarate (Symbicort 160-4.5 mcg) Inhaler 2 Puffs BID Digoxin (Lanoxin) 125 mcg PO DAILY [facility] Gabapentin (Neurontin) 300 - 600 mg PO BEDTIME [facility] Insulin Detemir (Levemir) 15 unit SUBCUT 0900 [facility] Insulin Detemir (Levemir) 9 unit SUBCUT 2100 [facility] Ipratropium/Albuterol (DUONEB) TID Losartan Potassium (Cozaar) 25 mg PO DAILY [facility] Prednisone (Prednisone) 20 mg PO TID X3 DAYS, BID X3 DAYS, THEN DAILY X4 DAYS Simvastatin (Zocor) 40 mg PO QPM [facility] Verapamil HCl (Calan Sr) 180 mg PO 0900,1700 [facility] Warfarin Sodium (Coumadin) 4 mg PO QPM [facility] (Skip 06/23/18 evening dose only) ALLERGIES: fenofibrate nanocrystallized [From Tricor] Adverse Reaction (Verified 05/02/16 09:28) fenofibrate,micronized [From Tricor] Adverse Reaction (Verified 05/02/16 09:28) NEW PRESCRIPTIONS: Acetylcysteine Neb [Mucomyst 20% Neb] 1 ml NEB BID (Mix with DUONEBS) 12 Days ml 06/23/18 Alprazolam [Xanax] 0.25 mg PO BID #20 tablet 06/23/18 Amoxicillin/Potassium Clav [Augmentin 875-125 mg Tab] 1 tab PO BIDAC #14 tablet 06/23/18 Budesonide/Formoterol Fumarate [Symbicort 160-4.5 Mcg Inhaler] 2 puff IH BID ( Office Samples provided) Prednisone 20 mg PO DIRECTED #19 tablet 06/23/18 SMOKING: CURRENT EVERY DAY SMOKER THE PATIENT HAS BEEN PROVIDED INFORMATION REGARDING THE BENEFITS OF SMOKING CESSATION AND THE RISKS OF NONCOMPLIANCE. SHE HAS BEEN OFFERED A NICOTINE PATCH TO ASSIST WITH CESSATION. MS. HINOJOSA DECLINED THE ASSISTANCE. SHE HAS NOT MADE A COMMITMENT TO STOP SMOKING DESPITE KNOWLEDGE OF THE RISKS. WE WILL CONTINUE TO PROVIDE ENCOURAGEMENT AND REINFORCE EDUCATION FOR COMPLETE CESSATION DURING HER OFFICE VISITS. DISEASE SPECIFIC EDUCATION: ESBL/E.COLI UTI BRONCHITIS/COPD SWING BED ADMISSION SMOKING CESSATION HOME MEDICATIONS AND CHANGES NEW PRESCRIPTIONS ADVERSE EFFECTS POSSIBLE WITH LONG-TERM STEROID USE FOLLOW UP PLAN: DISCHARGE HOME TODAY, 06/23/[address] BELLO IN HIS OFFICE ON 06/29/18 AT 10:30 A.M. RESUME YOUR HOME MEDICATIONS PER LIST PROVIDED BY THE NURSING STAFF PLEASE NOTE THE INCREASE IN YOUR ALPRAZOLAM (XANAX) TO 0.25 MG BY MOUTH TWICE DAILY FOR 10 DAYS, THEN YOU MAY RETURN TO YOUR USUAL DOSE OF 0.25 MG BY MOUTH DAILY NEEDED (PRN) TAKE YOUR USUAL DUONEBS TWICE DAILY MIXED WITH THE MUCOMYST AND ONCE DAILY UNMIXED TO EQUAL A TOTAL OF THREE DUONEBS DAILY. INQUIRE WITH YOUR PHYSICIAN TO WHEN TO RESUME YOUR USUAL DUONEBS FOUR TIMES DAILY NEEDED (PRN) HOLD YOUR COUMADIN TODAY ONLY, 06/23/18 ACTIVITY REST COMPLETELY THROUGH THIS WEEKEND. STAY INSIDE, THEN GRADUALLY INCREASE YOUR ACTIVITY LEVEL ACCORDING TO YOUR TOLERATION DIET: CONSISTENT CARBS HOSPITAL COURSE: This is an 83 year old white female who was admitted with acute bronchitis and COPD exacerbation. Chest x-ray did not show pneumonia however she was running low grade fever. Her ABG's were abnormal O2 saturation was 89% with low O2 and elevated CO2. Sputum culture came back positive for e-coli with positive ESBL on the third day and her antibiotics were changed to Invanz IV. She was then put on swing bed admission for continued IV therapy. Her respiratory status has waxed and waned through out her hospital stay. Yesterday, she was still wearing her oxygen at all times where normally her baseline is just to wear it PRN. She has increased wheezing and congestion. I added Mucomyst to her nebulizer treatments. She was very weak and she was not able to be up and walking around. Today her kidney function has improved and she is still wearing her oxygen however breath sounds have improved and she is requesting to go home. She is a long smoke, a pack per day for several years. Information has been provided regarding smoking cessation. We have discussed with her and her family in detail regarding the ESBL organism and COPD and bronchitis. She has a history or UTI with e-coli positive ESBL back in 2016. The closes to the [facility] PO is Augmentin so we will send her home with Augmentin 800-125mg twice a day for the next 7 days and she is instructed to dispose of her tissues, wash her hands. Again, she is not willing to stay another day and this is the closest antimicrobial therapy. Due to her severe COPD we will put her on Prednisone 20mg three times a day for three days and then twice a day for three days and daily for four days. Also she has a Symbicort inhaler and she is to do two puffs twice daily and then she is to do Mucomyst NEB treated twice a day to mix with her DUO NEBS and do her DUO NEBS at least three times daily. WBC is 14.4 today, hgb 13.8, hct 42.4, sodium 140, potassium 4.3, BUN 19, creatinine 0.59. She has been eating well for the past 2-3 days and again today she has been up and about walking around. We will send her home in stable condition and followup with her next week. She is instructed to stay inside with minimal exertion and just to gradually increase her activity as tolerated. TIME SPENT: More than 60 minutes. MTDD
== END 2018-06-23 12:47 | disposition home or self-care (01) | DRG 191 ==
LOC: MEDSURG B 13:32
PROVIDERS: ADMIT Internal Medicine; ATTEND Internal Medicine
DX: J44.1 Chronic obstructive pulmonary disease with (acute) exacerbation (principal); N39.0 Urinary tract infection, site not specified; J84.10 Pulmonary fibrosis, unspecified; I48.91 Unspecified atrial fibrillation; I10 Essential (primary) hypertension; I25.10 Atherosclerotic heart disease of native coronary artery without angina pectoris; I73.9 Peripheral vascular disease, unspecified; E78.5 Hyperlipidemia, unspecified; E11.9 Type 2 diabetes mellitus without complications; D64.9 Anemia, unspecified; K21.9 Gastro-esophageal reflux disease without esophagitis; F41.9 Anxiety disorder, unspecified; B96.20 Unspecified Escherichia coli [E. coli] as the cause of diseases classified elsewhere; R53.1 Weakness; R06.02 Shortness of breath; Z79.01 Long term (current) use of anticoagulants; Z79.4 Long term (current) use of insulin; Z72.0 Tobacco use
CPT/HCPCS: 36415; 80053; 82962; 85025; 85610; 94640; 97802

== ENCOUNTER 2018-08-16 11:35 | Outpatient (CLI) ==
--- NOTE | 2018-08-16 15:35 | US ---
EXAM: Ultrasound venous Doppler right and left lower extermity HISTORY: Edema, pain bilateral COMPARISON: None TECHNIQUE: Venous duplex ultrasound of the right and left lower extremity was performed using color, mancuso-scale, and Doppler flow imaging. FINDINGS: There is normal color flow and compression of the right and left common femoral, greater s aphenous, profunda femoral, femoral, popliteal, peroneal, posterior tibial, and anterior tibial veins without evidence of intraluminal thrombus. IMPRESSION: No right or left lower extremity deep venous thrombosis.
== END 2018-08-16 11:36 | disposition home or self-care (01) ==
LOC: RAD 11:35
PROVIDERS: ATTEND Internal Medicine
DX: R60.0 Localized edema (principal); M79.605 Pain in left leg; M79.604 Pain in right leg

== ENCOUNTER 2018-12-21 12:23 | Inpatient (IN) ==
[2018-12-21] MEDS ORDERED: VISTARIL INJ IM PRN (12:59)
[2018-12-21] MEDS ORDERED: NITROSTAT SL PRN (12:59)
[2018-12-21] MEDS ORDERED: ATROPINE SULFATE PFS IVP PRN (12:59)
[2018-12-21] MEDS ORDERED: TYLENOL PO PRN (12:59)
[2018-12-21] MEDS ORDERED: LASIX IVP STA (13:12)
[2018-12-21] MEDS ORDERED: XANAX PO PRN (13:26)
[2018-12-21 13:28] VITALS: BMI 18.0
--- NOTE | 2018-12-21 13:56 | DI ---
EXAM: Chest two views HISTORY: Shortness of breath FINDINGS: Compared to 06/18/2018. Normal heart size. Mild to moderate atherosclerotic disease. St ernotomy wires are noted. There is diffuse, chronic appearing interstitial accentuation. Lungs are hyperinflated and there is relative lucency of the lung zones suggesting pulmonary emphysema. No acu te infiltrates are seen. No vascular congestion. There is no consolidation, visible pleural fluid o r pneumothorax. Bones reveal no acute fracture. IMPRESSION: Suggestion of a component chronic obstructive pulmonary disease, correlate clinically. No acute process.
[2018-12-21] MEDS: XOPENEX 1.25 MG NEB PRN ×2 (14:03→20:13)
[2018-12-21] MEDS: SODIUM CHLORIDE 1,000 ML IV SCH (14:59)
[2018-12-21] MEDS: AZACTAM 1 GM in SODIUM CHLORIDE 50 ML IV SCH ×2 (14:59→21:19)
[2018-12-21] MEDS: SOLU-CORTEF 250 MG IVP SCH ×2 (15:00→21:19)
[2018-12-21] MEDS: ROCEPHIN 1 GM in SODIUM CHLORIDE 50 ML IV SCH (15:00)
[2018-12-21] MEDS: XANAX PO PRN ×2 (15:03→21:37)
[2018-12-21] MEDS: ZOCOR PO SCH (16:58)
[2018-12-21] MEDS: COUMADIN PO SCH (16:59)
[2018-12-21] MEDS ORDERED: NON-FORMULARY MEDICATION (Simvastatin [Zocor] 40 MG) PO SCH (17:00)
[2018-12-21] MEDS ORDERED: NON-FORMULARY MEDICATION (Warfarin Sodium [Coumadin] 4 MG) PO SCH (17:00)
[2018-12-21] MEDS: HUMULIN R SUBCUT PRN ×2 (17:16→21:33)
[2018-12-21] MEDS: PULMICORT 0.5 MG/2 ML NEB SCH (17:56)
[2018-12-21] MEDS ORDERED: CALAN SR PO SCH (21:00)
[2018-12-21] MEDS ORDERED: LEVEMIR SUBCUT SCH (21:00)
[2018-12-21] MEDS: NEURONTIN PO SCH (21:20)
[2018-12-21] MEDS: CALAN SR PO SCH (21:20)
[2018-12-21] MEDS: XOPENEX 1.25 MG NEB SCH (21:27)
[2018-12-21] MEDS: LEVEMIR SUBCUT SCH (21:28)
[2018-12-22] MEDS: XOPENEX 1.25 MG NEB SCH ×4 (04:45→22:55)
[2018-12-22] MEDS: PULMICORT 0.5 MG/2 ML NEB SCH ×2 (04:45→17:11)
[2018-12-22] MEDS: SODIUM CHLORIDE 1,000 ML IV SCH ×2 (04:49→09:35)
[2018-12-22] MEDS: SOLU-CORTEF 250 MG IVP SCH ×5 (04:49→23:38)
[2018-12-22] MEDS ORDERED: PREDNISONE PO SCH (09:00)
[2018-12-22] MEDS ORDERED: LEVEMIR SUBCUT SCH (09:00)
--- NOTE | 2018-12-22 09:01 | PCM.PROG ---
Attending Provider: ATTENDING PROVIDER: Dr. SAMUEL BELLO This patient is seen with Lashawn Austin, Nurse Practitioner. DATE OF SERVICE: 12/22/18 SUBJECTIVE: This 83 year old WHITE/ F was hospitalized 12/21/18. The patient is resting comfortably. She had some anxiety through the night when fell at home. ABG'S were abnormal. Breathing is not significantly improved today. U/ A showed +4 bacteria. REVIEW OF SYSTEMS: CONSTITUTIONAL: No night sweats. No fatigue, malaise, lethargy. No fever or chills. HEENT: Eyes: No visual changes. No eye pain. No eye discharge. ENT: No runny nose. No epistaxis. No sinus pain. No odynophagia. No congestion. RESPIRATORY: Cough, no congestion. No hemoptysis. Shortness of breath. Wheezing. CARDIOVASCULAR: No angina symptoms. No CHF symptoms. No atypical chest pain for CAD. No palpitations. No orthopnea.. GASTROINTESTINAL: No abdominal pain. No nausea or vomiting. No diarrhea or constipation. No hematemesis. No hematochezia. GENITOURINARY: No urgency. No frequency. No dysuria. No hematuria. No obstructive symptoms. No discharge. No pain. No significant abnormal bleeding. Malodorous urine. MUSCULOSKELETAL: No musculoskeletal pain; no joint swelling. NEUROLOGICAL: Awake, alert, oriented to time, place and person. No headache. No neck pain. No syncope. No seizures. No dizziness. PSYCHIATRIC: Not anxious. No depression. No suicidal thoughts. No homicidal thoughts. SKIN: No rash. No lesions. No wounds. ENDOCRINE: No unexplained weight loss. No weight gain. HEMATOLOGIC/LYMPHATIC: No anemia. No purpura. No petechiae. No prolonged or excessive bleeding. No palpable lymph nodes. PHYSICAL EXAMINATION: GENERAL: The patient is awake, alert and oriented, lying in bed in no distress. VITAL SIGNS: Temperature 97.4 F, Pulse 73, Respiratory Rate 20, BP 136/63, Pulse Ox 99% HEENT: Head normocephalic, atraumatic. Eyes: Extraocular muscles are intact. Pupils are equal, round and reactive to light and accommodation. Ears: No lesions. Nose appeared normal. Throat: No exudate or erythema. NECK: Supple. No JVD, no carotid bruit. No lymphadenopathy or thyromegaly. LUNGS: Bilateral rhonchi with inspiratory and expiratory wheezing defused. Clear to auscultation. Percussion note normal. Chest symmetrical. HEART: Irregular heart rate. S1, S2, no S3. No murmurs. No cyanosis or clubbing. No ascites. Pulses: Dorsalis pedis and posterior tibial pulses +1 to +2 both sides. ABDOMEN: Soft. Non-tender. Bowel sounds active. No CVA tenderness. No mass felt. EXTREMITIES: No edema. Full range of motion of all extremities, equal. NEUROLOGIC: No focal deficit. Cranial nerves II through XII are grossly intact. No headache, no double vision or headache. SKIN: Not dry. Intact. Turgor-normal. LYMPHATIC: No palpable lymph nodes/no lymphedema. MUSCULOSKELETAL: Normal joints with no swelling. Muscle tone is normal. LAB REVIEW: 12/22/18 06:00 12/22/18 06:00 12/22/18 06:00: Sodium 140.2, Potassium 4.18, Chloride 100.9, Carbon Dioxide 30.3 H, Anion Gap 13.18, BUN 18.1 H, Creatinine 0.51 L, Estimated GFR (MDRD) 115.00, BUN/Creatinine Ratio 35.49, Glucose 164.6 H D, Calcium 9.18, Total Bilirubin 0.27, AST 26.8, ALT 21.8, Alkaline Phosphatase 60.1, Total Protein 7.22, Albumin 4.06, Globulin 3.16, Albumin/Globulin Ratio 1.28 12/22/18 06:00: WBC 5.56, RBC 4.74, Hgb 14.2, Hct 43.9, MCV 92.6, MCH 30.0, MCHC 32.3, RDW Coeff of Leland 13.1, Plt Count 186, Immature Gran % (Auto) 0.5, Neut % (Auto) 75.5, Lymph % (Auto) 15.5, Barry % (Auto) 8.3, Eos % (Auto) 0.0, Baso % (Auto) 0.2, Immature Gran # (Auto) 0.0, Neut # (Auto) 4.2, Lymph # (Auto ) 0.9, Barry # (Auto) 0.5, Eos # (Auto) 0.0, Baso # (Auto) 0.0 12/22/18 06:00: PT 19.4 H, INR 1.98 12/21/18 21:07: Total Creatine Kinase 63.2, Troponin I < 0.012 12/21/18 15:20: Urine Color Yellow, Urine Clarity Turbid, Urine pH 7.0, Ur Specific [place] 1.015, Urine Protein Negative, Urine Glucose (UA) Negative, Urine Ketones Negative, Urine Blood Trace-intact, Urine Nitrite Positive, Urine Bilirubin Negative, Urine Urobilinogen 0.2, Ur Leukocyte Esterase Negative, Urine Microscopic RBC 0-2, Urine Microscopic WBC 10-20, Ur Squamous Epith Cells Not present, Urine Bacteria 4+ 12/21/18 14:35: Influ A Molecular Assay Negative by naat, Influ B Molecular Assay Negative by naat 12/21/18 13:23: Digoxin 1.25 12/21/18 13:23: PT 17.9 H, INR 1.82 12/21/18 13:23: Sodium 137.2, Potassium 4.85, Chloride 97.8 L, Carbon Dioxide 31.5 H, Anion Gap 12.75, BUN 13.4, Creatinine 0.49 L, Estimated GFR (MDRD) 121.00, BUN/Creatinine Ratio 27.34, Glucose 104.3, Calcium 9.38, Total Bilirubin 0.41, AST 24.8, ALT 17.3, Alkaline Phosphatase 57.9, Total Creatine Kinase 67.8, Troponin I < 0.012, Total Protein 7.36, Albumin 4.04, Globulin 3.32 , Albumin/Globulin Ratio 1.21 12/21/18 13:23: WBC 8.60, RBC 4.40, Hgb 13.1, Hct 40.6, MCV 92.3, MCH 29.8, MCHC 32.3, RDW Coeff of [place] 13.2, Plt Count 182, Immature Gran % (Auto) 0.5, Neut % (Auto) 77.6, Lymph % (Auto) 11.7, Barry % (Auto) 8.0, Eos % (Auto) 1.5, Baso % (Auto) 0.7, Immature Gran # (Auto) 0.0, Neut # (Auto) 6.7, Lymph # (Auto ) 1.0, Barry # (Auto) 0.7, Eos # (Auto) 0.1, Baso # (Auto) 0.1 12/21/18 13:02: Puncture Site R brach, O2 Saturation 92.0 L, ABG pH 7.390, ABG pCO2 44.5, ABG pO2 65.0 L, ABG HCO3 27 H, ABG Total CO2 28, ABG Base Excess 2, Tonio Test +, O2 Delivery Device Ra, FiO2 % 21.0 ASSESSMENT: Please see below. 1. Acute pneumonia 2. Shortness of breath 3. Severe COPD 4. Abnormal U/A culture, pending. PLAN: 1. Decrease IV fluid to 50cc an hour 2. CT with and without today. 3. Increase Solu-Cortef 125mg IV Q 6 hours. 4. Make Xanax 0.25mg three times a day scheduled. Plan and coordination of the patient's care discussed in the presence of Coach Builder and nurse. SCRIBED BY: Jaylene GUADALUPEist scribed while in presence of service performed by Dr. Bello/Lashawn Austin APRN on 12/22/18 ([id number])
[2018-12-22] MEDS ORDERED: PULMICORT 0.5 MG/2 ML NEB SCH (09:24)
[2018-12-22] MEDS: COZAAR PO SCH (09:33)
[2018-12-22] MEDS: ASPIRIN EC PO SCH (09:33)
[2018-12-22] MEDS: CALAN SR PO SCH ×2 (09:33→20:40)
[2018-12-22] MEDS: XANAX PO SCH ×3 (09:33→20:40)
[2018-12-22] MEDS: LANOXIN PO SCH (09:34)
[2018-12-22] MEDS: ROCEPHIN 1 GM in SODIUM CHLORIDE 50 ML IV SCH (09:35)
[2018-12-22] MEDS: NORCO 10-325 PO PRN (09:43)
[2018-12-22] MEDS: LEVEMIR SUBCUT SCH ×2 (09:43→20:41)
[2018-12-22] MEDS: AZACTAM 1 GM in SODIUM CHLORIDE 50 ML IV SCH ×2 (10:30→20:40)
[2018-12-22] MEDS: MUCOMYST 20% NEB NEB SCH ×2 (11:16→22:56)
[2018-12-22] MEDS: HUMULIN R SUBCUT PRN ×3 (11:32→20:40)
--- NOTE | 2018-12-22 14:04 | CT ---
EXAM: CT of the chest with and without contrast History: Short of breath, wheezing Comparison: Chest radiograph 12/21/2018, chest CT 02/25/2018 Technique: Multiplanar CT images through the thorax were obtained with and without the administratio n of IV contrast. Findings: Heart size is normal. No pericardial effusion. Great vessels are unremarkable. No patho logically enlarged thoracic lymph nodes. Calcified granulomas again seen within the thorax. Diffuse bronchial wall thickening and patchy bilateral upper lobe predominant ground-glass infiltrates simil ar and slightly improved compared to the prior study. Some of the previous described bilateral lung nodules have resolved. 1 cm left upper lobe lung nodule axial image number 19 is slightly more promi nent compared to the prior study. Within the visualized upper abdomen, no acute findings. No acute osseous abnormalities. Sternotomy wires. Impression: 1. Diffuse bronchial wall thickening and patchy upper lobe predominant ground-glass infiltrates slig htly improved compared to the prior study. 2. Some of the previous described lung nodules have resolved. However a 1 cm left upper lobe lung n odule is slightly more prominent. Recommend follow-up chest CT in 6 months. 3. Coronary artery disease
[2018-12-22] MEDS: ZOCOR PO SCH (16:03)
[2018-12-22] MEDS: COUMADIN PO SCH (16:03)
[2018-12-22] MEDS ORDERED: NORCO 10-325 PO STA (18:09)
[2018-12-22] MEDS: PYRIDIUM PO SCH ×2 (18:23→20:33)
[2018-12-22] MEDS: LOTRISONE 45 GM TP SCH ×2 (18:23→20:42)
[2018-12-22] MEDS: NEURONTIN PO SCH (20:40)
[2018-12-23] MEDS: SODIUM CHLORIDE 1,000 ML IV SCH ×3 (02:04→23:42)
[2018-12-23] MEDS: PULMICORT 0.5 MG/2 ML NEB SCH ×2 (05:03→16:50)
[2018-12-23] MEDS: XOPENEX 1.25 MG NEB SCH ×4 (05:03→23:10)
[2018-12-23] MEDS: HUMULIN R SUBCUT PRN ×3 (05:47→20:50)
[2018-12-23] MEDS: SOLU-CORTEF 250 MG IVP SCH ×4 (05:47→23:35)
[2018-12-23] MEDS: CALAN SR PO SCH ×2 (08:46→20:55)
[2018-12-23] MEDS: LANOXIN PO SCH (08:46)
[2018-12-23] MEDS: PYRIDIUM PO SCH ×3 (08:46→20:51)
[2018-12-23] MEDS: COZAAR PO SCH (08:46)
[2018-12-23] MEDS: XANAX PO SCH ×3 (08:46→20:51)
[2018-12-23] MEDS: ASPIRIN EC PO SCH (08:46)
[2018-12-23] MEDS: LEVEMIR SUBCUT SCH ×2 (08:48→20:50)
[2018-12-23] MEDS: AZACTAM 1 GM in SODIUM CHLORIDE 50 ML IV SCH (08:48)
--- NOTE | 2018-12-23 08:51 | PCM.PROG ---
Attending Provider: ATTENDING PROVIDER: Dr. SAMUEL BELLO DATE OF SERVICE: 12/23/18 SUBJECTIVE: This 83 year old WHITE/ F was hospitalized 12/21/18. The patient was hospitalized with pneumonitis and bronchitis, smoker. She has a history of coronary artery disease with bypass surgery. Her condition is slowly improving. REVIEW OF SYSTEMS: CONSTITUTIONAL: No night sweats. No fatigue, malaise, lethargy. No fever or chills. HEENT: Eyes: No visual changes. No eye pain. No eye discharge. ENT: No runny nose. No epistaxis. No sinus pain. No odynophagia. No congestion. RESPIRATORY: Still cough but much less, no congestion. No hemoptysis. No shortness of breath. CARDIOVASCULAR: No angina symptoms. No CHF symptoms. No atypical chest pain for CAD. No palpitations. No orthopnea.. GASTROINTESTINAL: No abdominal pain. No nausea or vomiting. No diarrhea or constipation. No hematemesis. No hematochezia. GENITOURINARY: No urgency. No frequency. No dysuria. No hematuria. No obstructive symptoms. No discharge. No pain. No significant abnormal bleeding. MUSCULOSKELETAL: No musculoskeletal pain; no joint swelling. NEUROLOGICAL: Awake, alert, oriented to time, place and person. No headache. No neck pain. No syncope. No seizures. No dizziness. PSYCHIATRIC: Not anxious. No depression. No suicidal thoughts. No homicidal thoughts. SKIN: No rash. No lesions. No wounds. ENDOCRINE: No unexplained weight loss. No weight gain. HEMATOLOGIC/LYMPHATIC: No anemia. No purpura. No petechiae. No prolonged or excessive bleeding. No palpable lymph nodes. PHYSICAL EXAMINATION: GENERAL: The patient is awake, alert and oriented, lying in bed in no distress. Social problems at home resolved. VITAL SIGNS: Temperature 97.6 F, Pulse 79, Respiratory Rate 24, BP 125/56, Pulse Ox 100% HEENT: Head normocephalic, atraumatic. Eyes: Extraocular muscles are intact. Pupils are equal, round and reactive to light and accommodation. Ears: No lesions. Nose appeared normal. Throat: No exudate or erythema. NECK: Supple. No JVD, no carotid bruit. No lymphadenopathy or thyromegaly. LUNGS: Expiratory wheezing with acceptable air entry, better than what she came in with. Percussion note normal. Chest symmetrical. HEART: S1, S2, no S3. No murmurs. No cyanosis or clubbing. No ascites. Pulses: Dorsalis pedis and posterior tibial pulses +1 to +2 both sides. ABDOMEN: Soft. Non-tender. Bowel sounds active. No CVA tenderness. No mass felt. EXTREMITIES: No edema. Full range of motion of all extremities, equal. NEUROLOGIC: No focal deficit. Cranial nerves II through XII are grossly intact. No headache, no double vision or headache. SKIN: Warm and dry. Intact. Turgor-normal. LYMPHATIC: No palpable lymph nodes/no lymphedema. MUSCULOSKELETAL: Normal joints with no swelling. Muscle tone is normal. LAB REVIEW: 12/23/18 05:05 12/23/18 05:05 12/23/18 05:05: Sodium 140.8, Potassium 4.48, Chloride 104.0, Carbon Dioxide 31.6 H, Anion Gap 9.68, BUN 20.6 H, Creatinine 0.52 L, Estimated GFR (MDRD) 113.00, BUN/Creatinine Ratio 39.61, Glucose 161.5 H, Calcium 8.76, Total Bilirubin 0.11 L, AST 29.6, ALT 24.2, Alkaline Phosphatase 50.2 L, Total Protein 6.05 L, Albumin 3.35 L, Globulin 2.70, Albumin/Globulin Ratio 1.24 12/23/18 05:05: WBC 11.30 H D, RBC 4.02 L, Hgb 11.9 L, Hct 37.6 D, MCV 93.5, MCH 29.6, MCHC 31.6 L, RDW Coeff of [place] 13.3, Plt Count 161, Immature Gran % ( Auto) 0.6, Neut % (Auto) 87.1, Lymph % (Auto) 7.9 L, [place] % (Auto) 4.3, Eos % ( Auto) 0.0, Baso % (Auto) 0.1, Immature Gran # (Auto) 0.1, Neut # (Auto) 9.8 H, Lymph # (Auto) 0.9, [place] # (Auto) 0.5, Eos # (Auto) 0.0, Baso # (Auto) 0.0 12/23/18 05:05: PT 22.9 H, INR 2.35 ASSESSMENT: Please see below. 1. Acute bronchitis/pneumonitis 2. The patient started developing symptoms of UTI with growth of gram negative rods in urine and sputum. The patient has been given Rocephin and Azactam. 3. Hydration status has improved PLAN: 1. Her condition is improving slowly. Prognosis is not good with continued smoking, non-compliance with medications and lifestyle Plan and coordination of the patient's care discussed in the presence of Metallurgical Technician and nurse. SCRIBED BY: ISH MONROY Quad Stayer scribed while in presence of service performed by Dr. SAMUEL BELLO on 12/23/18 ([id number])
[2018-12-23] MEDS: LOTRISONE 45 GM TP SCH ×3 (09:51→20:56)
[2018-12-23] MEDS: ROCEPHIN 1 GM in SODIUM CHLORIDE 50 ML IV SCH (09:51)
[2018-12-23] MEDS: MUCOMYST 20% NEB NEB SCH ×2 (11:30→23:10)
[2018-12-23] MEDS: PRIMAXIN 300 MG in SODIUM CHLORIDE 100 ML IV SCH ×3 (12:12→23:36)
--- NOTE | 2018-12-23 14:01 | HP ---
DATE OF SERVICE: 12/21/18 REASON FOR HOSPITALIZATION/HISTORY OF PRESENT ILLNESS: The patient has been up since 02:30AM with shortness of breath and couldn't even lay on wedge pillow and breathe. Just finished Z-pack and Prednisone. Lost weight. PAST MEDICAL HISTORY: COPD Hypertension Diabetes Mellitus type 2 Chronic bronchitis Anemia Atrial fibrillation Smoking Pulmonary nodule PAD CAD/CABG's PAST SURGICAL HISTORY: CABG's Hysterectomy Colonoscopy 05/21 Dr. Maloney REVIEW OF SYSTEMS: CONSTITUTIONAL: No fever, Fatigue. HEENT: No sinus drainage, no sore throat. RESPIRATORY: Cough, no congestion. CARDIOVASCULAR: No atypical chest pain for coronary artery disease. No angina. CHF symptoms with orthopnea. No palpitations. Shortness of breath. GASTROINTESTINAL: No melena or abdominal pain. No GERD. GENITOURINARY: No hematuria, no prostatism, no polyuria. 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 MUSCULOSKELETAL: Osteoarthritis pain, no joint swelling. ENDOCRINE: Weight loss, no weight gain. SKIN: Not dry, no rash. PSYCHIATRIC: Anxious, no depression, no suicidal thoughts, no homicidal thoughts. SOCIAL HISTORY: Marital Status: . Alcohol Usage: NO. Tobacco Usage: YES. FAMILY HISTORY: Father Mother Brother 4 Sister 4 MEDICATIONS: Xanax 0.25mg PO three time per day PRN Prednisone 5mg Po daily Hydrocodone/Acetaminophen 10-325mg PO every 12 hours PRN Dyazide 37.5-25mg two capsules PO daily PRN Coumadin 4mg PO take one tablet PO one time per day Gabapentin 300mg PO three times per day Levimer 12 units AM 10PM two times per day ProAir HFA 90MCG inhale two puffs by inhalation route every 4 hours as needed Alprazolam 0.25mg PO one time per day PRN Verapamil 180mg PO two times per day at bedtime Cozaar 25mg Po daily Simvastatin 40mg PO in the evening Lotrisone 1-0.05% apply to the affected and surrounding areas of skin by topical route two times per day Ipratropium albuterol 0.5mg-3mg/3ml solution for nebulization inhale 3 milliliter by nebulization route four times per day PRN Digoxin 125mcg take one tablet PO daily ALLERGIES: No known allergies PHYSICAL EXAMINATION: V/S: Pulse 97, blood pressure 110/58, temperature 98.8, oxygen saturation 93%. Height 5'3, BMI 18.2, weight 102.4. GENERAL APPEARANCE: Oriented times three. HEENT: Yellow sputum. Labored Breathing. NECK: No JVP, no bruits. RESPIRATORY: Bilateral rhonchi decreased left more than right. Expiratory wheezing. CARDIOVASCULAR: Irregular. S1, S2, no S3, no murmurs. No cyanosis, clubbing. No ascites. GI/ABDOMEN: No tenderness. Bowel sounds are active. EXTREMITIES: edema, pulses +1, equal. KINDERGARTEN CLASSROOM TEACHER: Deep tendon reflexes, sensory, motor and gait all normal. RECTAL: Dr. Maloney 05/21/PELVIC: Advised yearly, Mammogram 09/21 refused repeat. ASSESSMENT: 1. Shortness of breath 2. Acute pneumonitis 3. COPD exacerbation 4. Atrial fibrillation 5. Leg edema 6. Allergic bronchitis 7. Right knee pain/OA 8. MARYANA 9. Pulmonary nodules 10.Severe COPD 11.Smoking 12.Diabetes Mellitus type 2 A1c 09/25 (6.6) 13.Anemia 14.Atrial fibrillation 15.PAD-Dr. Haas 16.CAD 17.CABG's 18.OP PLAN: 1. Admit 2. Routine telemetry orders 3. Continue home medications 4. Stat INR today 5. CBC and CMP now and daily 6. Daily INR 7. ABG stat 8. O2 as needed 9. Sputum culture 10.Rapid Flu A and B 11.Xopenex NEBS 1.25 three times a day scheduled 12.Pulmicort 1mg twice a day NEB 13.Sliding scale insulin coverage 14.Regular diet 15.Azactam i gram IV Q 12 hours 16.Rocephin 1gram IV daily 17.Solu-Cortef 125mg IV Q 8 hours 18.Digoxin Level 19.Normal saline at 75cc an hour IV 20.Lasix 40mg IV times one dose. TIME SPENT: More than 70 minutes. MTDD
[2018-12-23] MEDS: NORCO 10-325 PO PRN (15:17)
[2018-12-23] MEDS: ZOCOR PO SCH (17:13)
[2018-12-23] MEDS: COUMADIN PO SCH (17:16)
[2018-12-23] MEDS: NEURONTIN PO SCH (20:51)
[2018-12-24] MEDS: PULMICORT 0.5 MG/2 ML NEB SCH ×4 (04:35→17:09)
[2018-12-24] MEDS: XOPENEX 1.25 MG NEB SCH ×5 (04:35→23:45)
[2018-12-24] MEDS: SOLU-CORTEF 250 MG IVP SCH ×4 (05:08→23:52)
[2018-12-24] MEDS: PRIMAXIN 300 MG in SODIUM CHLORIDE 100 ML IV SCH ×4 (05:08→23:52)
[2018-12-24] MEDS: HUMULIN R SUBCUT PRN ×4 (05:09→20:56)
[2018-12-24] MEDS: LEVEMIR SUBCUT SCH ×2 (08:39→20:55)
[2018-12-24] MEDS: COZAAR PO SCH (08:40)
[2018-12-24] MEDS: ASPIRIN EC PO SCH (08:40)
[2018-12-24] MEDS: CALAN SR PO SCH ×2 (08:40→20:55)
[2018-12-24] MEDS: XANAX PO SCH ×3 (08:40→20:55)
[2018-12-24] MEDS: PYRIDIUM PO SCH (08:40)
[2018-12-24] MEDS: LANOXIN PO SCH (08:41)
[2018-12-24] MEDS: NORCO 10-325 PO PRN (08:46)
[2018-12-24] MEDS: LOTRISONE 45 GM TP SCH ×3 (08:57→21:02)
[2018-12-24] MEDS: MUCOMYST 20% NEB NEB SCH ×2 (12:30→23:45)
[2018-12-24] MEDS: ZOCOR PO SCH (16:17)
[2018-12-24] MEDS: COUMADIN PO SCH (16:17)
[2018-12-24] MEDS: NEURONTIN PO SCH (20:55)
[2018-12-24] MEDS: SODIUM CHLORIDE 1,000 ML IV SCH (23:57)
[2018-12-25] MEDS: PULMICORT 0.5 MG/2 ML NEB SCH ×2 (04:40→16:55)
[2018-12-25] MEDS: XOPENEX 1.25 MG NEB SCH ×4 (04:40→23:15)
[2018-12-25] MEDS: PRIMAXIN 300 MG in SODIUM CHLORIDE 100 ML IV SCH ×4 (05:16→23:10)
[2018-12-25] MEDS: SOLU-CORTEF 250 MG IVP SCH ×4 (05:16→23:11)
[2018-12-25] MEDS: NORCO 10-325 PO PRN (08:05)
[2018-12-25] MEDS: COZAAR PO SCH (08:05)
[2018-12-25] MEDS: XANAX PO SCH ×3 (08:05→20:29)
[2018-12-25] MEDS: CALAN SR PO SCH ×2 (08:05→20:28)
[2018-12-25] MEDS: ASPIRIN EC PO SCH (08:06)
[2018-12-25] MEDS: LANOXIN PO SCH (08:09)
[2018-12-25] MEDS: LEVEMIR SUBCUT SCH ×2 (08:10→20:31)
[2018-12-25] MEDS: LOTRISONE 45 GM TP SCH ×3 (08:17→20:30)
[2018-12-25] MEDS: HUMULIN R SUBCUT PRN ×2 (10:57→16:48)
[2018-12-25] MEDS: MUCOMYST 20% NEB NEB SCH ×2 (11:12→23:15)
[2018-12-25] MEDS: LEVAQUIN PO SCH (11:21)
[2018-12-25] MEDS: K-DUR PO SCH ×2 (11:34→16:47)
[2018-12-25] MEDS: COUMADIN PO SCH (16:20)
[2018-12-25] MEDS: ZOCOR PO SCH (16:20)
[2018-12-25] MEDS: NEURONTIN PO SCH (20:29)
[2018-12-26] MEDS: XOPENEX 1.25 MG NEB SCH (04:45)
[2018-12-26 04:50] VITALS: BP 156/74; TEMP 97.4
[2018-12-26] MEDS: PULMICORT 0.5 MG/2 ML NEB SCH (05:05)
[2018-12-26] MEDS: SOLU-CORTEF 250 MG IVP SCH (05:40)
[2018-12-26] MEDS: PRIMAXIN 300 MG in SODIUM CHLORIDE 100 ML IV SCH (05:40)
[2018-12-26] MEDS: LEVAQUIN PO SCH (05:41)
[2018-12-26] MEDS: HUMULIN R SUBCUT PRN (05:42)
--- NOTE | 2018-12-26 07:30 | PN ---
DATE OF SERVICE: 12/22/18 SUBJECTIVE: The patient was seen and examined today with Nurse Practitioner. The patient's is doing well. PHYSICAL EXAMINATION: HEENT: Head normocephalic, atraumatic. Eyes: Extraocular muscles are intact. Pupils are equal, round and reactive to light and accommodation. Ears: No lesions. Nose appeared normal. Throat: No exudate or erythema. NECK: Supple. No JVD, no carotid bruit. No lymphadenopathy or thyromegaly. LUNGS: Decreased breaths sounds. Mild wheeze. Percussion note normal. Chest symmetrical. HEART: S1, S2, no S3. No murmurs. No cyanosis or clubbing. No ascites. Pulses: Dorsalis pedis and posterior tibial pulses +1 to +2 bilaterally. ABDOMEN: Soft. Nontender. Bowel sounds active. No CVA tenderness. No mass felt. EXTREMITIES: No edema. Full range of motion of all extremities, equal. NEUROLOGIC: No focal deficit. Cranial nerves II through XII are grossly intact. No headache, no double vision or headache. SKIN: Not dry. Intact. Turgor - normal. LYMPHATIC: No palpable lymph nodes/no lymphedema. MUSCULOSKELETAL: Normal joints with no swelling. Muscle tone is normal. PLAN: 1. The patient didn't sign out and has continued to smoke. 2. Counseling for smoking done. 3. Continue steroids and antibiotics 4. Side effects of steroids discussed like avascular necrosis of femoral bone, osteoporosis PROGNOSIS: Poor. She is noncompliant of diet, medications and lifestyle. TIME SPENT: More than 30 minutes. Plan and coordination of the patient's care discussed in the presence of nurse. STEFANO
[2018-12-26] MEDS: CALAN SR PO SCH (08:47)
[2018-12-26] MEDS: K-DUR PO SCH (08:47)
[2018-12-26] MEDS: ASPIRIN EC PO SCH (08:47)
[2018-12-26] MEDS: XANAX PO SCH (08:47)
[2018-12-26] MEDS: LEVEMIR SUBCUT SCH (08:48)
[2018-12-26] MEDS: COZAAR PO SCH (08:48)
[2018-12-26] MEDS: LANOXIN PO SCH (08:52)
[2018-12-26] MEDS: LOTRISONE 45 GM TP SCH (08:56)
[2018-12-26] MEDS: NORCO 10-325 PO PRN (10:13)
--- NOTE | 2018-12-26 10:44 | CM.DICTOOL ---
ADMISSION: 12/21/18 12:23 DISCHARGE: 12/26/18 DATE OF SERVICE: 12/26/18 FINAL DIAGNOSIS PNEUMONITIS/ACUTE BRONCHITIS (PSEUDOMONAS AERUGINOSA AND E-COLI SPUTUM) SHORTNESS OF AIR UTI -E-COLI, ESBL POSITIVE HYPOKALEMIA, REPLACED ANXIETY/FAMILY DIFFICULTIES A-FIB (ON ANTICOAGULANT) PULMONARY FIBROSIS HYPERTENSION CAD DYSLIPIDEMIA DM, TYPE 2 ANEMIA GERD GI BLEED, 2012 PERIPHERAL ARTERIAL DISEASE CABG, 3 VESSEL, 1996 STEND APPLICATION, 2000 HYSTERECTOMY CATARACT EXTRACTIONS CURRENT EVERYDAY SMOKER, HAS DECREASED AMOUNT AND FREQUENCY LAST VITALS Temp Pulse Resp BP Pulse Ox 97.4 F L 83 24 156/74 H 91 L 12/26/18 04:47 12/26/18 08:52 12/26/18 04:47 12/26/18 04:47 12/26/18 04:47 TAKE THESE MEDICATIONS AT HOME Alprazolam (Xanax) 0.25 mg PO BID PRN Last Admin: 12/26/18 08:47 Dose: 0.25 mg Digoxin (Lanoxin) 125 mcg PO DAILY [facility] Last Admin: 12/26/18 08:52 Dose: 125 mcg Gabapentin (Neurontin) 300 mg PO BEDTIME [facility] Last Admin: 12/25/18 20:29 Dose: 300 mg Hydrocodone Bitart/Acetaminophen ([place] 10-325) 1 tab PO Q12H PRN PRN Reason: Pain Last Admin: 12/25/18 08:05 Dose: 1 tab Insulin Detemir (Levemir) 10 unit SUBCUT 2100 [facility] Last Admin: 12/25/18 20:31 Dose: 10 unit Insulin Detemir (Levemir) 12 unit SUBCUT 0900 [facility] Last Admin: 12/26/18 08:48 Dose: 12 unit Ipratropium/Albuterol Neb (Duoneb) 1 vial RTTID Levofloxacin (Levaquin) 500 mg PO QDAC [facility], FOR 5 DAYS ONLY Stop: 12/28/18 11:29 Last Admin: 12/26/18 05:41 Dose: 500 mg Losartan Potassium (Cozaar) 25 mg PO DAILY [facility] Last Admin: 12/26/18 08:48 Dose: 25 mg Nitrofurantoin (Macrodantin) 50 mg PO BID x5 DAYS ONLY Prednisone 10 mg PO BID x5 DAYS, then DAILY x5 DAYS Simvastatin (Zocor) 40 mg PO QPM [facility] Last Admin: 12/25/18 16:20 Dose: 40 mg Verapamil HCl (Calan Sr) 180 mg PO BID [facility] Last Admin: 12/26/18 08:47 Dose: 180 mg Warfarin Sodium (Coumadin) 4 mg PO 1700 [facility] Last Admin: 12/25/18 16:20 Dose: 4 mg ALLERGIES fenofibrate nanocrystallized [From Tricor] Adverse Reaction (Verified 05/02/16 09:28) fenofibrate,micronized [From Tricor] Adverse Reaction (Verified 05/02/16 09:28) NEW PRESCRIPTIONS: Levofloxacin [Levaquin] 500 mg PO QDAC #5 tablet 12/26/18 Nitrofurantoin Macrocrystal [Macrodantin] 50 mg PO BID #10 capsule 12/26/18 Prednisone 10 mg PO DIRECTED #15 tablet 12/26/18 SMOKING: THE PATIENT HAS RECEIVED EDUCATION AND ENCOURAGEMENT FOR COMPLETE SMOKING CESSATION. SHE IS AWARE OF THE ADDED RISK CONTINUATION POSES TO HER CARDIOPULMONARY HEALTH. SHE TELLS US SHE HAS DECREASED THE FREQUENCY OF SMOKING FROM A PACK PER DAY TO 1-2 CIGARETTES DAILY. WE HAVE COMMENDED HER EFFORT AND ENCOURAGE HER TO CONTINUE IN HER GOAL FOR COMPLETE CESSATION. DISEASE SPECIFIC EDUCATION: FOLLOW UP HOME MEDICATIONS NEW PRESCRIPTIONS RISKS OF TAKING STEROIDS LONG-TERM SUCH AVASCULAR NECROSIS AND BONE DEMINERALIZATION OXYGEN USE DIET/ACTIVITY BRONCHITIS/PNEUMONITIS-PSEUDOMONAS AERUGINOSA AND E-COLI UTI (ESBL POSITIVE AND E-COLI) LAB REVIEW: 12/26/18 04:40 12/26/18 04:40 12/26/18 04:40: Sodium 142.2, Potassium 3.96, Chloride 99.3, Carbon Dioxide 39.3 H, Anion Gap 7.56, BUN 18.4 H, Creatinine 0.49 L, Estimated GFR (MDRD) 121.00, BUN/Creatinine Ratio 37.55, Glucose 161.0 H, Calcium 8.48, Total Bilirubin 0.21, AST 44.6 H, ALT 52.1 H, Alkaline Phosphatase 48.1 L, Total Protein 5.85 L, Albumin 3.20 L, Globulin 2.65, Albumin/Globulin Ratio 1.20 12/26/18 04:40: WBC 8.78, RBC 3.78 L, Hgb 11.3 L, Hct 35.5 L, MCV 93.9, MCH 29.9 , MCHC 31.8, RDW Coeff of [place] 13.6, Plt Count 158, Immature Gran % (Auto) 1.6, Neut % (Auto) 83.4, Lymph % (Auto) 9.3 L, [place] % (Auto) 5.6, Eos % (Auto) 0.0, Baso % (Auto) 0.1, Immature Gran # (Auto) 0.1, Neut # (Auto) 7.3 H, Lymph # ( Auto) 0.8, [place] # (Auto) 0.5, Eos # (Auto) 0.0, Baso # (Auto) 0.0 PLAN: DISCHARGE HOME TODAY, 12/26/[address] BELLO IN HIS OFFICE ON 12/30/18 AT 11:30 A.M. [facility] FROM [place], [place] WILL PROVIDE YOUR PORTABLE OXYGEN SYSTEM # [phone] RESUME YOUR HOME MEDICATIONS PER LIST PROVIDED BY THE NURSING STAFF NEW PRESCRIPTIONS PREDNISONE 10 MG, TAKE ONE TABLET BY MOUTH WITH FOOD TWICE DAILY FOR 5 DAYS, THEN ONE TAB WITH FOOD DAILY FOR 5 DAYS LEVAQUIN 500 MG, TAKE ONE TABLET BY MOUTH DAILY FOR 5 DAYS ONLY MACRODANTIN 50 MG, TAKE ONE CAPSULE BY MOUTH TWICE DAILY FOR 5 DAYS ACTIVITY GET PLENTY OF REST AT HOME. GRADUALLY INCREASE YOUR ACTIVITY LEVEL ACCORDING TO YOUR TOLERATION CONTINUE TO DECREASE YOUR SMOKING FREQUENCY UNTIL YOU ACHIEVE COMPLETE CESSATION WEAR YOUR OXYGEN CONTINUOUSLY DIET CONSISTENT CARBS DRINK PLENTY OF LIQUIDS SUMMARY THE PATIENT IS ALERT AND ORIENTED X3. SHE CURRENTLY RESIDES AT HOME WITH HER SPOUSE AND GRANDDAUGHTER, DUNCAN. SHE HAS BEEN INDEPENDENT WITH ADL'S AND HAS NOT REQUIRED HOME HEALTH SERVICES OR HOMEMAKING ASSISTANCE. SHE CURRENTLY IS REQUIRED TO USE OXYGEN. SHE HAS A NEBULIZER AND GLUCOMETER WITH TESTING SUPPLIES. SHE HAS REQUESTED A PORTABLE OXYGEN SYSTEM TO USE SHE IS ACTIVE WITH HER LIFESTYLE. [facility] FROM [place], [place] WILL PROVIDE THIS DME SINCE THEY SUPPLY HER CURRENT HOME OXYGEN. SHE DESIRES TO RETURN TO HER HOME AT DISCHARGE. THE SKIN TURGOR IS INTACT AND WITHOUT DECUBITUS ULCERS. HYDRATION AND NUTRITIONAL STATUS ARE BOTH VERY GOOD AT DISCHARGE. THE PATIENT IS UNDERWEIGHT AND HAS BEEN ENCOURAGED TO CONTINUE WITH THIS HEARTY DIET WHILE OBSERVICE CONSISTENT CARBS WHEN SHE RETURNS HOME. SHE AND HER DAUGHTER ARE AWARE AND AGREEABLE FOR TODAY'S DISCHARGE PLANS. CURRENT CODE STATUS DO NOT INTUBATE, CPR ONLY SAMUEL BELLO M.D.
--- NOTE | 2018-12-26 11:02 | PCM.PROG ---
Attending Provider: ATTENDING PROVIDER: Dr. SAMUEL BELLO DATE OF SERVICE: 12/26/18 SUBJECTIVE: This 83 year old WHITE/ F was hospitalized 12/21/18. The patient is hospitalized with pneumonitis/acute bronchitis/UTI - ESBL The patient had Pseudomonas Aeruginosa and E-Coli. She is discharged on Levaquin and Macrodantin. The patient's daughter is in the room. REVIEW OF SYSTEMS: CONSTITUTIONAL: No night sweats. No fatigue, malaise, lethargy. No fever or chills. HEENT: Eyes: No visual changes. No eye pain. No eye discharge. ENT: No runny nose. No epistaxis. No sinus pain. No odynophagia. No congestion. RESPIRATORY: Mild cough, mild expiratory wheeze. No hemoptysis. No shortness of breath. CARDIOVASCULAR: No angina symptoms. No CHF symptoms. No atypical chest pain for CAD. No palpitations. No orthopnea.. GASTROINTESTINAL: No abdominal pain. No nausea or vomiting. No diarrhea or constipation. No hematemesis. No hematochezia. GENITOURINARY: No urgency. No frequency. No dysuria. No hematuria. No obstructive symptoms. No discharge. No pain. No significant abnormal bleeding. MUSCULOSKELETAL: No musculoskeletal pain; no joint swelling. NEUROLOGICAL: Awake, alert, oriented to time, place and person. No headache. No neck pain. No syncope. No seizures. No dizziness. PSYCHIATRIC: Not anxious. No depression. No suicidal thoughts. No homicidal thoughts. SKIN: No rash. No lesions. No wounds. ENDOCRINE: No unexplained weight loss. No weight gain. HEMATOLOGIC/LYMPHATIC: No anemia. No purpura. No petechiae. No prolonged or excessive bleeding. No palpable lymph nodes. PHYSICAL EXAMINATION: GENERAL: The patient is awake, alert and oriented, sitting in chair in no distress. VITAL SIGNS: Temperature 97.4 F, Pulse 86, Respiratory Rate 24, BP 156/74, Pulse Ox 91% HEENT: Head normocephalic, atraumatic. Eyes: Extraocular muscles are intact. Pupils are equal, round and reactive to light and accommodation. Ears: No lesions. Nose appeared normal. Throat: No exudate or erythema. NECK: Supple. No JVD, no carotid bruit. No lymphadenopathy or thyromegaly. LUNGS: Mild expiratory wheeze. Percussion note normal. Chest symmetrical. HEART: S1, S2, no S3. No murmurs. No cyanosis or clubbing. No ascites. Pulses: Dorsalis pedis and posterior tibial pulses +1 to +2 both sides. ABDOMEN: Soft. Non-tender. Bowel sounds active. No CVA tenderness. No mass felt. EXTREMITIES: No edema. Full range of motion of all extremities, equal. NEUROLOGIC: No focal deficit. Cranial nerves II through XII are grossly intact. No headache, no double vision or headache. SKIN: Warm and dry. Intact. Turgor-normal. LYMPHATIC: No palpable lymph nodes/no lymphedema. MUSCULOSKELETAL: Normal joints with no swelling. Muscle tone is normal. LAB REVIEW: 12/26/18 04:40 12/26/18 04:40 12/26/18 04:40: Sodium 142.2, Potassium 3.96, Chloride 99.3, Carbon Dioxide 39.3 H, Anion Gap 7.56, BUN 18.4 H, Creatinine 0.49 L, Estimated GFR (MDRD) 121.00, BUN/Creatinine Ratio 37.55, Glucose 161.0 H, Calcium 8.48, Total Bilirubin 0.21, AST 44.6 H, ALT 52.1 H, Alkaline Phosphatase 48.1 L, Total Protein 5.85 L, Albumin 3.20 L, Globulin 2.65, Albumin/Globulin Ratio 1.20 12/26/18 04:40: WBC 8.78, RBC 3.78 L, Hgb 11.3 L, Hct 35.5 L, MCV 93.9, MCH 29.9 , MCHC 31.8, RDW Coeff of [place] 13.6, Plt Count 158, Immature Gran % (Auto) 1.6, Neut % (Auto) 83.4, Lymph % (Auto) 9.3 L, [place] % (Auto) 5.6, Eos % (Auto) 0.0, Baso % (Auto) 0.1, Immature Gran # (Auto) 0.1, Neut # (Auto) 7.3 H, Lymph # ( Auto) 0.8, [place] # (Auto) 0.5, Eos # (Auto) 0.0, Baso # (Auto) 0.0 ASSESSMENT: 1. PNEUMONITIS, RESOLVING 2. UTI, RESOLVING 3. COPD WITH HISTORY OF SMOKING 4. HYPOKALEMIA, RESOLVED PLAN: 1. Discharge the patient home. 2. Counseling for smoking done. 3. Antibiotics Levaquin and Macrodantin for 5 days. 4. I will see the patient back in four to five days. 5. Prednisone 10 mg b.i.d. for 5 days then one a day for five days. 6. Advised the patient to drink lots of fluids. 7. PFT. 8. Portable oxygen ordered for patient to be up and about. Plan and coordination of the patient's care discussed in the presence of Pole Tester and nurse. CONDITION: Stable. Prognosis: Not good. SCRIBED BY: JACLYN ANDRADE 2Nd Pressman scribed while in presence of service performed by Dr. SAMUEL BELLO on 12/26/18 ([id number])
--- NOTE | 2018-12-26 11:30 | PN ---
DATE OF SERVICE: 12/25/18 SUBJECTIVE: 83 year old white female was hospitalized with acute bronchitis later on the patient also been noted to have urinary tract infection, both of them are e- coli ESBL. The patient is going to be on Primaxin which is Imipenem and Cilastatin. The patient is also going to be on Levaquin as the sputum culture shows that the patient has pseudomonas which is sensitive to Levaquin, Cefepime. REVIEW OF SYSTEMS: CONSTITUTIONAL: No night sweats. No fatigue, malaise, lethargy. No fever or chills.The patient is feeling better. HEENT: Eyes: No visual changes. No eye pain. No eye discharge. ENT: No runny nose. No epistaxis. No sinus pain. No sore throat. No odynophagia. No congestion. RESPIRATORY:Mild cough with congestion improving. No hemoptysis. No shortness of breath. CARDIOVASCULAR: No angina symptoms. No CHF symptoms. No atypical chest pain for CAD. No palpitations. No PND. No orthopnea. GASTROINTESTINAL: No abdominal pain. No nausea or vomiting. No diarrhea or constipation. No hematemesis. No hematochezia. Appetite has improved. GENITOURINARY: No urgency. No frequency. No dysuria. No hematuria. No obstructive symptoms. No discharge. No pain. No significant abnormal bleeding. MUSCULOSKELETAL: No musculoskeletal pain; no joint swelling. NEUROLOGICAL: No headache. No neck pain. No syncope. No seizures. No dizziness. PSYCHIATRIC: Not anxious. No depression. No suicidal thoughts. No homicidal thoughts. SKIN: No rash. No lesions. No wounds. ENDOCRINE: No unexplained weight loss. No weight gain. HEMATOLOGIC/LYMPHATIC: No anemia. No purpura. No petechiae. No prolonged or excessive bleeding. No palpable lymph nodes. PHYSICAL EXAMINATION: VITAL SIGNS: Temperature 98.1, pulse 80, respiratory rate 18, blood pressure 127/62 and pulse ox 98%. HEENT: Head normocephalic, atraumatic. Eyes: Extraocular muscles are intact. Pupils are equal, round and reactive to light and accommodation. Ears: No lesions. Nose appeared normal. Throat: No exudate or erythema. NECK: Supple. No JVD, no carotid bruit. No lymphadenopathy or thyromegaly. LUNGS: Expiratory wheeze. Clear to auscultation. Percussion note normal. Chest symmetrical. HEART: S1, S2, no S3. No murmurs. No cyanosis or clubbing. No ascites. Pulses: Dorsalis pedis and posterior tibial pulses +1 to +2 bilaterally. ABDOMEN: Soft. Nontender. Bowel sounds active. No CVA tenderness. No mass felt. EXTREMITIES: No edema. Full range of motion of all extremities, equal. NEUROLOGIC: No focal deficit. Cranial nerves II through XII are grossly intact. No headache, no double vision or headache. SKIN: Not dry. Intact. Turgor - somewhat better. LYMPHATIC: No palpable lymph nodes/no lymphedema. MUSCULOSKELETAL: Normal joints with no swelling. Muscle tone is normal. LABS: Hgb 10.8, hct 34, WBC 7,000 normal differential, creatinine 0.3, BUN 17, potassium 3.3, glucose 136, INR 2.69. ASSESSMENT: 1. Acute bronchitis/pneumonitis seems to be resolving 2. UTI seems to be resolving. No symptoms 3. Severe COPD with smoking. 4. Coronary artery bypass surgery PLAN: 1. The patient's BMI is 18 advised to gain weight. Diet for weight gain discussed. 2. Counseling for smoking done. 3. Continue antibiotics Primaxin and Levaquin. CONDITION: Stable PROGNOSIS: Poor TIME SPENT: More than 30 minutes. Plan and coordination of the patient's care discussed in the presence of nurse. STEFANO
--- NOTE | 2018-12-26 11:43 | DS ---
DATE OF SERVICE: 12/26/18 FINAL DIAGNOSIS: 1. PNEUMONITIS/ACUTE BRONCHITIS (PSEUDOMONAS AERUGINOSA AND E-COLI SPUTUM) 2. SHORTNESS OF AIR 3. UTI -E-COLI, ESBL POSITIVE 4. HYPOKALEMIA, REPLACED 5. ANXIETY/FAMILY DIFFICULTIES 6. A-FIB (ON ANTICOAGULANT) 7. PULMONARY FIBROSIS 8. HYPERTENSION 9. CAD 10. DYSLIPIDEMIA 11. DM, TYPE 2 12. ANEMIA 13. GERD 14. GI BLEED, 2012 15. PERIPHERAL ARTERIAL DISEASE 16. CABG, 3 VESSEL, 1996 17. STENT APPLICATION, 2000 18. HYSTERECTOMY 19. CATARACT EXTRACTIONS 20. CURRENT EVERYDAY SMOKER, HAS DECREASED AMOUNT AND FREQUENCY LAST VITAL SIGNS: Temperature 97.4, pulse 83, respiratory rate 24, BP 156/74, pulse ox 91. DISCHARGE INSTRUCTIONS: Followup appointment with Dr. Boyce in his office on Wednesday12/30/18 at 11:30 a.m. Geoff from [place], [place] will provide your portable oxygen system, #. MEDICATIONS AT DISCHARGE: Alprazolam (Xanax) 0.25 mg PO BID PRN Last Admin: 12/26/18 08:47 Dose: 0.25 mg Digoxin (Lanoxin) 125 mcg PO DAILY [facility] Last Admin: 12/26/18 08:52 Dose: 125 mcg Gabapentin (Neurontin) 300 mg PO BEDTIME [facility] Last Admin: 12/25/18 20:29 Dose: 300 mg Hydrocodone Bitart/Acetaminophen ([place] 10-325) 1 tab PO Q12H PRN PRN Reason: Pain Last Admin: 12/25/18 08:05 Dose: 1 tab Insulin Detemir (Levemir) 10 unit SUBCUT 2100 [facility] Last Admin: 12/25/18 20:31 Dose: 10 unit Insulin Detemir (Levemir) 12 unit SUBCUT 0900 [facility] Last Admin: 12/26/18 08:48 Dose: 12 unit Ipratropium/Albuterol Neb (Duoneb) 1 vial RTTID Levofloxacin (Levaquin) 500 mg PO QDAC [facility], FOR 5 DAYS ONLY Stop: 12/28/18 11:29 Last Admin: 12/26/18 05:41 Dose: 500 mg Losartan Potassium (Cozaar) 25 mg PO DAILY [facility] Last Admin: 12/26/18 08:48 Dose: 25 mg Nitrofurantoin (Macrodantin) 50 mg PO BID x5 DAYS ONLY Prednisone 10 mg PO BID x5 DAYS, then DAILY x5 DAYS Simvastatin (Zocor) 40 mg PO QPM [facility] Last Admin: 12/25/18 16:20 Dose: 40 mg Verapamil HCl (Calan Sr) 180 mg PO BID [facility] Last Admin: 12/26/18 08:47 Dose: 180 mg Warfarin Sodium (Coumadin) 4 mg PO 1700 [facility] Last Admin: 12/25/18 16:20 Dose: 4 mg NEW PRESCRIPTIONS: Levofloxacin 500 mg PO QDAC #5 tablet 12/26/18 Nitrofurantoin Macrocrystal 50 mg PO BID #10 capsule 12/26/18 Prednisone 10 mg PO DIRECTED #15 tablet 12/26/18 DIET INSTRUCTIONS: Consistent carbs Drink plenty of liquids ACTIVITY: Get plenty of rest at home. Gradually increase your activity level according to your toleration. Continue to decrease your smoking frequency until you achieve complete cessation. Wear your oxygen continuously. SMOKING: THE PATIENT HAS RECEIVED EDUCATION AND ENCOURAGEMENT FOR COMPLETE SMOKING CESSATION. SHE IS AWARE OF THE ADDED RISK CONTINUATION POSES TO HER CARDIOPULMONARY HEALTH. SHE TELLS US SHE HAS DECREASED THE FREQUENCY OF SMOKING FROM A PACK PER DAY TO 1-2 CIGARETTES DAILY. WE HAVE COMMENDED HER EFFORT AND ENCOURAGE HER TO CONTINUE IN HER GOAL FOR COMPLETE CESSATION. DISEASE SPECIFIC EDUCATION: FOLLOW UP HOME MEDICATIONS NEW PRESCRIPTIONS RISKS OF TAKING STEROIDS LONG-TERM SUCH AVASCULAR NECROSIS AND BONE DEMINERALIZATION OXYGEN USE DIET/ACTIVITY BRONCHITIS/PNEUMONITIS-PSEUDOMONAS AERUGINOSA AND E-COLI UTI (ESBL POSITIVE AND E-COLI) HOSPITAL COURSE: This 83-year-old female was hospitalized with acute bronchitis, pneumonitis and COPD. Also, UTI, positive ESBL, which was treated with Primaxin that is Imipenem/ Cilastatin. Also, initially was treated with Rocephin. Sputum grew pseudomonas sensitive to Levaquin. The patient is going to be discharged on Levaquin 500 mg p.o. daily times 5 days and Macrobid 50 mg b.i.d for 5 days. Counseling for smoking done. The patient's prognosis is poor considering lifestyle. The patient is underweight and malnourished. She is advised to gain weight. Pulmonary rehab discussed and declined. Will do PFT on discharge. Portable oxygen considered for the patient if qualifies. CONDITION: Stable PROGNOSIS: Poor. TIME SPENT: More than 60 minutes. MTDD
--- NOTE | 2018-12-26 11:51 | PN ---
CODING FOR BILLING 12/21/18 ADMISSION DAY LEVEL 5 12/22/18 INTERMEDIATE 12/23/18 INTERMEDIATE 12/24/18 INTERMEDIATE 12/25/18 INTERMEDIATE 12/26/18 DISCHARGE MTDD
--- NOTE | 2018-12-27 07:47 | PN ---
DATE OF SERVICE: 12/24/18 SUBJECTIVE: The patient was seen and examined today. 83 year old white female hospitalized with acute pneumonitis/bronchitis. The patient's condition has slowly improved. She has infection of the urinary tract and also pneumonitis both gram negative rods. She is on Imipenem and Cilastatin 300mg Q 6 hours for both. The patient is afebrile. REVIEW OF SYSTEMS: CONSTITUTIONAL: No night sweats. No fatigue, malaise, lethargy. No fever or chills. HEENT: Eyes: No visual changes. No eye pain. No eye discharge. ENT: No runny nose. No epistaxis. No sinus pain. No sore throat. No odynophagia. No congestion. RESPIRATORY: Mild cough, no congestion. No hemoptysis. No shortness of breath. CARDIOVASCULAR: No angina symptoms. No CHF symptoms. No atypical chest pain for CAD. No palpitations. No PND. No orthopnea. GASTROINTESTINAL: No abdominal pain. No nausea or vomiting. No diarrhea or constipation. No hematemesis. No hematochezia. Appetite seems to be improving. GENITOURINARY: No urgency. No frequency. No dysuria. No hematuria. No obstructive symptoms. No discharge. No pain. No significant abnormal bleeding. MUSCULOSKELETAL: No musculoskeletal pain; no joint swelling. NEUROLOGICAL: No headache. No neck pain. No syncope. No seizures. No dizziness. PSYCHIATRIC: Not anxious. No depression. No suicidal thoughts. No homicidal thoughts. SKIN: No rash. No lesions. No wounds. ENDOCRINE: No unexplained weight loss. No weight gain. HEMATOLOGIC/LYMPHATIC: No anemia. No purpura. No petechiae. No prolonged or excessive bleeding. No palpable lymph nodes. PHYSICAL EXAMINATION: VITAL SIGNS: Temperature 97.6, pulse 88, respiratory rate 22, blood pressure 136/65 and pulse ox 96%. HEENT: Head normocephalic, atraumatic. Eyes: Extraocular muscles are intact. Pupils are equal, round and reactive to light and accommodation. Ears: No lesions. Nose appeared normal. Throat: No exudate or erythema. NECK: Supple. No JVP, no carotid bruit. No lymphadenopathy or thyromegaly. LUNGS:Decreased breath sounds with mild wheeze. Percussion note normal. Chest symmetrical. HEART: S1, S2, no S3. No murmurs. No cyanosis or clubbing. No ascites. Pulses: Dorsalis pedis and posterior tibial pulses +1 to +2 bilaterally. ABDOMEN: Soft. Nontender. Bowel sounds active. No CVA tenderness. No mass felt. EXTREMITIES: No edema. Full range of motion of all extremities, equal. NEUROLOGIC: No focal deficit. Cranial nerves II through XII are grossly intact. No headache, no double vision or headache. SKIN: Not dry. Intact. Turgor - better. LYMPHATIC: No palpable lymph nodes/no lymphedema. MUSCULOSKELETAL: Normal joints with no swelling. Muscle tone is normal. LABS: Hgb 11.2, hct 36, WBC 9,300 normal differential, creatinine 0.4, BUN 19, potassium 4. ASSESSMENT: 1. Acute bronchitis/pneumonitis seems to be improving with mild wheeze 2. UTI seems to be resolving with no symptoms 3. Chronic lung disease with smoking PLAN: 1. Counseling for smoking done. 2. Cardiovascular status stable. PROGNOSIS: Poor considering the patient's lifestyle, continued and noncompliance on medications. TIME SPENT: More than 30 minutes. Plan and coordination of the patient's care discussed in the presence of nurse. STEFANO
== END 2018-12-26 10:35 | disposition home or self-care (01) | DRG 202 ==
LOC: MEDSURG B 12:23
PROVIDERS: ADMIT Internal Medicine; ATTEND Internal Medicine
DX: J20.9 Acute bronchitis, unspecified (principal); N39.0 Urinary tract infection, site not specified; J44.1 Chronic obstructive pulmonary disease with (acute) exacerbation; R06.02 Shortness of breath; B96.20 Unspecified Escherichia coli [E. coli] as the cause of diseases classified elsewhere; E87.6 Hypokalemia; F41.9 Anxiety disorder, unspecified; I48.91 Unspecified atrial fibrillation; Z79.01 Long term (current) use of anticoagulants; J84.10 Pulmonary fibrosis, unspecified; I10 Essential (primary) hypertension; I25.10 Atherosclerotic heart disease of native coronary artery without angina pectoris; E78.5 Hyperlipidemia, unspecified; E11.9 Type 2 diabetes mellitus without complications; D64.9 Anemia, unspecified; K21.9 Gastro-esophageal reflux disease without esophagitis; I73.9 Peripheral vascular disease, unspecified; R60.0 Localized edema; M25.561 Pain in right knee; M19.90 Unspecified osteoarthritis, unspecified site
CPT/HCPCS: 36415; 80053; 80162; 81001; 82550; 82803; 82962; 84484; 85025; 85610; 87070; 87086; 87186; 87502; 93005; 93010; 94640; 94761

== ENCOUNTER 2019-03-14 08:44 | Outpatient (CLI) | payer OTHER ==
--- NOTE | 2019-03-14 12:06 | CT ---
EXAM: CT of the chest with contrast History: Weight loss, follow-up pulmonary nodules. Comparison: Chest CT 12/22/2018 Technique: Multiplanar CT images through the thorax were obtained following administration of IV con trast Findings: Heart size is normal. Coronary calcifications. Great vessels are unremarkable. No patho logically enlarged thoracic lymph nodes. No change in the 1 cm left upper lobe lung nodule. Other t iny scattered sub centimeter bilateral lung nodules are unchanged. Calcified granulomas are again se en within the thorax. Diffuse bronchial wall thickening and mild patchy bilateral ground-glass lung infiltrates are unchanged. There is a new 0.8 cm left lower lobe lung nodule. No pleural fluid and no pneumothorax. For details in the upper abdomen, please see dedicated CT of the abdomen pelvis done on the same day. No acute osseous abnormalities. Sternotomy wires. Impression: 1. New 0.8 cm left lower lobe lung nodule. Recommend follow-up chest CT in 3-6 months. 2. No change in the 1 cm left upper lobe lung nodule. Close attention to on follow-up recommended. 3. No change in the diffuse bronchial wall thickening and mild chronic bilateral ground-glass lung i nfiltrates.
--- NOTE | 2019-03-14 12:25 | CT ---
EXAM: CT of the abdomen pelvis with contrast History: Weight loss, abdominal pain and anemia. Comparison: Chest CT 03/14/2019, CT abdomen pelvis 05/02/2016 Technique: Multiplanar CT images through the abdomen pelvis were obtained following administration of IV contrast Findings: Calcified granulomas seen within the right lower lobe. No acute osseous abnormalities. M oderate to severe degenerative disc disease at L5-S1. Atherosclerotic vascular calcifications. No focal liver or splenic lesions. No gallstones identifie d by CT. Mild dilatation of the pancreatic duct in the proximal pancreatic body measuring up to 3 mm in caliber. No definite pancreatic masses are identified by CT. 2 cm duodenal diverticulum. Left kidney is unremarkable. A few small cysts seen within the inferior pole of the right kidney with the largest measuring 2.2 cm. Adrenal glands are unremarkable. Prominent gastric folds. Mild submucos al edema of the stomach. No bowel obstruction. Moderate to large amount colonic stool. Bladder is moderately distended. No bladder wall thickening. Uterus is not seen. No perirectal inflammation. No free air and no ascites. No pathologically enlarged lymph nodes. Colonic diverticulosis Impression: 1. Probable mild gastritis. 2. [id number] amount of colonic stool. 3. Moderately distended bladder but no bladder wall thickening. 4. Atherosclerotic vascular disease. 5. Simple right renal cysts. 6. Mild pancreatic duct dilatation but no pancreatic masses are identified by CT. 7. Small duodenal diverticulum. 8. No lymphadenopathy. 9. Colonic diverticulosis
== END 2019-03-14 08:45 | disposition home or self-care (01) ==
LOC: RAD 08:44
PROVIDERS: ATTEND Internal Medicine
DX: D64.9 Anemia, unspecified (principal); E11.9 Type 2 diabetes mellitus without complications; R63.4 Abnormal weight loss; R06.02 Shortness of breath; R53.1 Weakness; R10.9 Unspecified abdominal pain; R91.1 Solitary pulmonary nodule
CPT/HCPCS: 36415; 80053; 80061; 82607; 83036; 84439; 84443; 85025

== ENCOUNTER 2019-03-29 15:39 | Outpatient (CLI) ==
--- NOTE | 2019-03-29 16:02 | DI ---
EXAM: Chest two views HISTORY: Cough COMPARISON: 12/21/2017 TECHNIQUE: Two views of the chest were performed FINDINGS: Lower airway thickening. No airspace consolidation. No pleural effusion. No pneumothora x. Left upper lobe nodule. Granulomatous calcification. Heart normal in size. Mediastinal contour normal, noting atherosclerosis. Median sternotomy wires. IMPRESSION: 1. Lower airway thickening, suggesting small airways infection/inflammation 2. Pulmonary nodule. Please see CT chest 03/14/2019.
== END 2019-03-29 15:40 | disposition home or self-care (01) ==
LOC: RAD 15:39
PROVIDERS: ATTEND Internal Medicine
DX: R05 Cough (principal)

== ENCOUNTER 2019-06-24 10:34 | Emergency (ER) ==
[2019-06-24 11:04] VITALS: BP 147/76; TEMP 98; BMI 17.2
--- NOTE | 2019-06-24 11:07 | ED.PDOC ---
General ED Provider: Dr. PEYTON BURKETT Chief Complaint: Respiratory Complaint Stated Complaint: Shortness of breath Time Seen by Physician: 11:05 Mode of Arrival: Walk-In Information Source: Patient Exam Limitations: No limitations, Clinical condition Primary Care Provider: SAMUEL BELLO Nursing and Triage Documentation Reviewed and Agree: Yes Does patient meet sepsis criteria?: No System Inflammatory Response Syndrome: Not Applicable Sepsis Protocol: For patient's 13 years and over: Temp is 96.8 and below OR 101 and greater Pulse >90 BPM Resp >20/minute Acutely Altered Mental Status Are patient's symptoms suggestive of a new infection, such as: -Pneumonia -Skin, Soft Tissue -Endocarditis -UTI -Bone, Joint Infection -Implantable Device -Acute Abdominal Infection -Wound Infection -Meningitis -Blood Stream Catheter Infection -Unknown Review of Systems - Review Of Systems Constitutional: Reports: No symptoms, Weakness Eyes: Reports: No symptoms Ears, Nose, Mouth, Throat: Reports: No symptoms Respiratory: Reports: No symptoms, Cough, Short of air, Wheezing Cardiac: Reports: No symptoms GI: Reports: No symptoms : Reports: No symptoms Musculoskeletal: Reports: No symptoms Skin: Reports: No symptoms Neurological: Reports: No symptoms Endocrine: Reports: No symptoms Hematologic/Lymphatic: Reports: No symptoms All Other Systems: Reviewed and Negative Past Medical History - Past Medical History Previously Healthy: No Endocrine: Reports: DM 2, Dyslipidemia Cardiovascular: Reports: CAD, Hypertension Respiratory: Reports: COPD, Pneumonia Hematological: Reports: None Gastrointestinal: Reports: None Genitourinary: Reports: UTI Neuro/Psych: Reports: Anxiety Musculoskeletal: Reports: None Cancer: Reports: None Last Menstrual Period: n/a - Surgical History General Surgical History: Reports: CABG - Family History Family History: Reports: Unknown - Social History Smoking Status: Current every day smoker Hx Substance Use: No Alcohol Screening: None - Immunizations Tetanus Shot up to Date: Yes Physical Exam - Physical Exam Appearance: Thin Ill-appearing: Mild Pain Distress: None Eyes: KAREN ENT: Ears normal, Nose normal, Oropharynx normal Neck: Supple Respiratory: Airway patent, Breath sounds clear, Breath sounds equal, Respirations nonlabored Cardiovascular: RRR, Pulses normal, No rub, No murmur GI/: Soft, Nontender, No masses, Bowel sounds normal, No Organomegaly Musculoskeletal: Normal strength, ROM intact, No edema, No calf tenderness Skin: Warm, Dry, Normal color Neurological: Sensation intact, Motor intact, Reflexes intact, Cranial nerves intact, Alert, Oriented Psychiatric: Affect appropriate, Mood appropriate, Anxious Critical Care Note - Critical Care Note Total Time (mins): 60 Course - Course Hematology/Chemistry: 06/24/19 11:32 06/24/19 11:32 Orders, Labs, Meds: Lab Review 06/24/19 06/24/19 06/24/19 11:07 11:32 11:32 WBC 14.59 H RBC 4.16 L Hgb 12.3 Hct 37.6 MCV 90.4 MCH 29.6 MCHC 32.7 RDW Coeff of [place] 13.4 Plt Count 229 Immature Gran % (Auto) 0.8 Neut % (Auto) 89.7 Lymph % (Auto) 7.0 L [place] % (Auto) 2.3 Eos % (Auto) 0.1 Baso % (Auto) 0.1 Immature Gran # (Auto) 0.1 Neut # (Auto) 13.1 H Lymph # (Auto) 1.0 Titus # (Auto) 0.3 L Eos # (Auto) 0.0 Baso # (Auto) 0.0 D-Dimer (Manual) 350.51 Puncture Site Lbrach O2 Saturation 94.0 L ABG pH 7.439 ABG pCO2 39.9 ABG pO2 69.0 L ABG HCO3 27.1 H ABG Total CO2 28 ABG Base Excess 3 H FiO2 % 21.0 Sodium Potassium Chloride Carbon Dioxide Anion Gap BUN Creatinine Estimated GFR (MDRD) BUN/Creatinine Ratio Glucose Calcium Total Bilirubin AST ALT Alkaline Phosphatase Total Creatine Kinase Troponin I NT-Pro-B Natriuret Pep Total Protein Albumin Globulin Albumin/Globulin Ratio Procalcitonin Digoxin 06/24/19 06/24/19 06/24/19 11:32 11:32 11:32 WBC RBC Hgb Hct MCV MCH MCHC RDW Coeff of [place] Plt Count Immature Gran % (Auto) Neut % (Auto) Lymph % (Auto) Titus % (Auto) Eos % (Auto) Baso % (Auto) Immature Gran # (Auto) Neut # (Auto) Lymph # (Auto) Titus # (Auto) Eos # (Auto) Baso # (Auto) D-Dimer (Manual) Puncture Site O2 Saturation ABG pH ABG pCO2 ABG pO2 ABG HCO3 ABG Total CO2 ABG Base Excess FiO2 % Sodium 132.2 L Potassium 4.63 Chloride 97.3 L Carbon Dioxide 29.9 Anion Gap 9.63 BUN 19.5 H Creatinine 0.62 Estimated GFR (MDRD) 92.00 BUN/Creatinine Ratio 31.45 Glucose 148.2 H Calcium 9.36 Total Bilirubin 0.38 AST 24.5 ALT 19.5 Alkaline Phosphatase 62.3 Total Creatine Kinase 37.5 Troponin I < 0.012 NT-Pro-B Natriuret Pep 227.000 Total Protein 7.01 Albumin 4.03 Globulin 2.98 Albumin/Globulin Ratio 1.35 Procalcitonin < 0.05 Digoxin 1.22 Orders Category Date Time Status ABG DRAW REQUEST Stat CARDIO 06/24/19 11:10 Completed EKG-(ED ONLY) Stat CARDIO 06/24/19 11:07 Completed NEBULIZER TREATMENT Stat CARDIO 06/24/19 12:17 Completed NEBULIZER TREATMENT Stat CARDIO 06/24/19 12:51 Completed OXYGEN Routine CARDIO 06/24/19 11:07 Completed ABG Stat LAB 06/24/19 11:07 Completed BLOOD CULTURE (ED ONLY) Stat LAB 06/24/19 11:32 Received CBC W/ AUTO DIFF Stat LAB 06/24/19 11:32 Completed COMPREHENSIVE METABOLIC PANEL Stat LAB 06/24/19 11:32 Completed CPK [CREATINE KINASE] Stat LAB 06/24/19 11:32 Completed D-DIMER Stat LAB 06/24/19 11:32 Completed DIGOXIN Stat LAB 06/24/19 11:32 Completed NT-PROBNP Stat LAB 06/24/19 11:32 Completed PROCALCITONIN Stat LAB 06/24/19 11:32 Completed SPUTUM CULTURE Stat LAB 06/24/19 11:17 Received TROPONIN I Stat LAB 06/24/19 11:32 Completed Budesonide [Pulmicort 0.5 mg/2 ml] MEDS 06/24/19 12:50 Discontinued 1 vial NEB ONCE STA Ceftriaxone 1 gm Vial [Rocephin 1 gm Vial] MEDS 06/24/19 13:13 Discontinued 1 gm .ROUTE .STK-MED ONE Ceftriaxone 1 gm Vial [Rocephin 1 gm Vial] 1 gm MEDS 06/24/19 12:50 Discontinued 0.9 % Sodium Chloride [Sodium Chloride] 50 ml IV ONCE Ipratropium/Albuterol Neb [Duoneb] MEDS 06/24/19 12:17 Discontinued 1 vial NEB ONCE STA Methylprednisolone Sod Succ/Pf [Solu-Medrol 125 mg] MEDS 06/24/19 13:12 Discontinued 125 mg IVP ONCE STA CHEST, 1V AP ONLY Stat RADS 06/24/19 11:08 Completed Medications Discontinued Medications Generic Name Dose Route Start Last Admin Trade Name Gracie PRN Reason Stop Dose Admin Albuterol/Ipratropium 1 vial 06/24/19 12:17 06/24/19 12:25 Duoneb NEB 06/24/19 12:18 1 vial ONCE STA Administration Budesonide 1 vial 06/24/19 12:50 06/24/19 13:10 Pulmicort 0.5 Mg/2 Ml NEB 06/24/19 12:51 1 vial ONCE STA Administration Ceftriaxone Sodium 1 gm/ 50 mls @ 75 mls/hr 06/24/19 12:50 06/24/19 13:38 Sodium Chloride IV 06/24/19 13:29 75 mls/hr ONCE STA Administration Methylprednisolone Sodium Succinate 125 mg 06/24/19 13:12 06/24/19 13:32 Solu-Medrol 125 Mg IVP 06/24/19 13:13 125 mg ONCE STA Administration Vital Signs: Temp Pulse Resp BP Pulse Ox 06/24/19 10:36 98.0 F 93 H 26 H 147/76 H 92 L Departure - Departure Time of Disposition: 14:00 Disposition: HOME SELF-CARE Discharge Problem: COPD exacerbation Instructions: COPD (Chronic Obstructive Pulmonary Disease) (ED) Condition: Stable Pt referred to PMD for follow-up: Yes (Dr Bello) IPMP verified?: No Additional Instructions: take all meds as directed Use nebs [address] Bello next week Prescriptions: Cefuroxime Axetil [Cefuroxime] 500 mg PO BID #20 tablet Cefuroxime Axetil [Cefuroxime] 500 mg PO BID #20 tablet Prednisone 10 mg PO DAILYWM #50 tablet Allergies/Adverse Reactions: Allergies fenofibrate nanocrystallized [From Tricor] Adverse Reaction (Verified 06/24/19 10:56) fenofibrate,micronized [From Tricor] Adverse Reaction (Verified 06/24/19 10:56) Home Medications: Ambulatory Orders Gabapentin [Neurontin] 600 mg PO TID 06/29/13 Simvastatin [Zocor] 40 mg PO QPM 06/29/13 Verapamil HCl [Verapamil ER] 180 mg PO BID 03/04/15 Digoxin [Lanoxin] 125 mcg PO DAILY 09/24/15 Losartan Potassium [Cozaar] 25 mg PO DAILY 12/10/15 Hydrocodone/Acetaminophen [Hydrocodone-Acetamin 10-325 mg] 1 tab PO Q12H PRN Alprazolam [Xanax] 0.25 mg PO TID PRN 12/21/18 Warfarin Sodium [Coumadin] 4 mg PO 1700 12/21/18 Clotrimazole/Betamethasone Dip [Lotrisone Cream] 15 gm TP BID PRN 05/17/19 Insulin Detemir [Levemir] 25 unit SUBCUT BID 05/17/19 Budesonide [Pulmicort] 0.5 mg IH BID 05/22/19 Cefuroxime Axetil [Cefuroxime] 500 mg PO BID #20 tablet 06/24/19 Cefuroxime Axetil [Cefuroxime] 500 mg PO BID #20 tablet 06/24/19 Furosemide 20 mg PO DAILY PRN 06/24/19 Ipratropium/Albuterol Neb [Duoneb] 1 vial NEB Q6HR 06/24/19 Potassium Chloride 10 meq PO DAILY PRN 06/24/19 Prednisone 10 mg PO DAILYWM #50 tablet 06/24/19 Disposition Discussed With: Patient, Family
--- NOTE | 2019-06-24 11:34 | DI ---
EXAM: Portable AP view of the chest CLINICAL HISTORY: Shortness of breath FINDINGS: Comparison is made to an exam dated 05/17/2019. The heart size and mediastinal contours are normal. No masses are seen. No infiltrates are demonstrated. No pneumothorax is evident. No effu sions are seen. A median sternotomy has been performed. Bony structures are grossly intact. IMPRESSION: No acute cardiopulmonary process
[2019-06-24] MEDS ORDERED: DUONEB NEB STA (12:17)
[2019-06-24] MEDS ORDERED: SOLU-MEDROL 125 MG IM STA (12:45)
[2019-06-24] MEDS ORDERED: PULMICORT 0.5 MG/2 ML NEB STA (12:50)
[2019-06-24] MEDS ORDERED: ROCEPHIN 1 GM VIAL 1 GM in SODIUM CHLORIDE 50 ML IV STA (12:50)
[2019-06-24] MEDS ORDERED: SOLU-MEDROL 125 MG IVP STA (13:12)
[2019-06-24] MEDS ORDERED: ROCEPHIN 1 GM VIAL ONE (13:13)
== END 2019-06-24 14:25 | disposition home or self-care (01) ==
LOC: ED 10:34
DX: J44.1 Chronic obstructive pulmonary disease with (acute) exacerbation (principal); R06.02 Shortness of breath; E11.9 Type 2 diabetes mellitus without complications; E78.5 Hyperlipidemia, unspecified; I25.10 Atherosclerotic heart disease of native coronary artery without angina pectoris; I10 Essential (primary) hypertension; Z79.01 Long term (current) use of anticoagulants; Z79.899 Other long term (current) drug therapy; Z95.1 Presence of aortocoronary bypass graft; F17.210 Nicotine dependence, cigarettes, uncomplicated
CPT/HCPCS: 36415; 80053; 80162; 82550; 82803; 83880; 84145; 84484; 85025; 85379; 87040; 87070; 87186; 93005; 93010; 94640; 96365; 96375; 99283

== ENCOUNTER 2019-07-11 10:10 | Outpatient (CLI) | payer OTHER ==
--- NOTE | 2019-07-11 11:20 | US ---
EXAM: Bilateral lower extremity venous Doppler History: Bilateral lower extremity pain and swelling. Technique: Multiple sonographic images through the bilateral lower extremities were obtained. Color duplex Doppler was used to interrogate vascular flow. Findings: The bilateral common femoral, greater saphenous, profunda, superficial femoral, popliteal, peroneal, posterior tibial and anterior tibial veins demonstrate spontaneous flow with normal compre ssion and normal augmentation. Impression: No sonographic evidence for deep venous thrombosis.
== END 2019-07-11 10:11 | disposition home or self-care (01) ==
LOC: RAD 10:10
PROVIDERS: ATTEND Internal Medicine
DX: M79.662 Pain in left lower leg (principal); M79.661 Pain in right lower leg; M79.89 Other specified soft tissue disorders; R63.5 Abnormal weight gain

== ENCOUNTER 2019-11-27 09:44 | Inpatient (IN) ==
[2019-11-27] MEDS ORDERED: ATROPINE SULFATE PFS IVP PRN (09:57)
[2019-11-27] MEDS ORDERED: NITROSTAT SL PRN (09:57)
[2019-11-27] MEDS ORDERED: TYLENOL PO PRN (09:57)
[2019-11-27] MEDS ORDERED: PULMICORT 1 MG/2 ML NEB SCH (10:15)
[2019-11-27] MEDS ORDERED: DUONEB NEB SCH (10:16)
[2019-11-27] MEDS ORDERED: SOLU-MEDROL 125 MG IVP SCH (10:30)
[2019-11-27 10:36] VITALS: BMI 18.0
--- NOTE | 2019-11-27 10:50 | DI ---
Exam: Single view of the chest. Comparison: 10/26/2019. Reason for exam: Short of breath. FINDINGS: Parenchymal change consistent with chronic lung disease with patchy airspace opacities. N o pneumothorax, pleural effusion, or focal consolidation. Operative changes after midline sternotomy . Impression: Stable appearance of the chest with basilar atelectasis/pneumonia versus scarring in the setting of c hronic lung disease
[2019-11-27] MEDS: DUONEB NEB SCH ×3 (11:08→23:30)
[2019-11-27] MEDS: SOLU-CORTEF 250 MG IVP SCH ×3 (11:20→21:00)
[2019-11-27] MEDS: ROCEPHIN 1 GM/50 ML D5W 1 GM/50 ML BAG IV SCH (11:21)
[2019-11-27] MEDS ORDERED: LASIX TAB PO PRN (11:22)
[2019-11-27] MEDS: SODIUM CHLORIDE 1,000 ML IV SCH (11:28)
[2019-11-27] MEDS: HUMULIN R SUBCUT PRN ×2 (11:39→20:53)
[2019-11-27] MEDS: ZITHROMAX 500 MG in SODIUM CHLORIDE 250 ML IV SCH (12:27)
--- NOTE | 2019-11-27 14:30 | HP ---
DATE OF SERVICE: 11/27/2019 REASON FOR HOSPITALIZATION/HISTORY OF PRESENT ILLNESS: 84 year old white female hospitalized with cough and shortness of breath. She is on Omnicef and Prednisone. She is weak and can't walk, not eating. PAST MEDICAL HISTORY: COPD Hypertension Diabetes Mellitus type 2 Chronic bronchitis Anemia Atrial fibrillation Smoking Pulmonary Nodule PAD CAD CABG's PAST SURGICAL HISTORY: CABG's Hysterectomy Colonoscopy 7-14 Dr. Maloney REVIEW OF SYSTEMS: CONSTITUTIONAL: No fever, Fatigue. HEENT: Sinus drainage, no sore throat. RESPIRATORY: Cough, no congestion. CARDIOVASCULAR: No atypical chest pain for coronary artery disease. No angina, CHF symptoms, palpitations. Shortness of breath. GASTROINTESTINAL: No melena or abdominal pain. No GERD. GENITOURINARY: No hematuria, no prostatism, no polyuria. FAMILY SUPPORT WORKER: No blackout, no dizziness, no headache, no double vision. MUSCULOSKELETAL: Osteoarthritis pain, no joint swelling. ENDOCRINE: No weight loss, no weight gain. SKIN: Not dry, no rash. PSYCHIATRIC: Not anxious, no depression, no suicidal thoughts, no homicidal thoughts. SOCIAL HISTORY: Marital Status: . Alcohol Usage: No. Tobacco Usage: Yes. FAMILY HISTORY: Father Mother Brother 4 Sister 4 MEDICATIONS: Neurontin 600mg PO three times per day Prednisone 5mg PO daily Hydrocodone-acetaminophen 10-325mg PO every 12 hours PRN Dyazide 37.5-25mg take two capsules PO PRN Coumadin 4mg PO daily Levimer 12 units am 10units PM two times per day ProAir HFA two puffs every 4 hours Alprazolam 0.25mg PO three times per day PRN Verapamil 180mg PO two times per day Cozaar 25mg PO daily Simvastatin 40mg PO daily in the evening Lotrisone 1-0.05% cream apply to the affected and surrounding areas of skin topical route two times per day Ipratropium-albuterol inhale 3ml four times per day PRN Digoxin 125mcg PO daily ALLERGIES: No known allergies PHYSICAL EXAMINATION: V/S: Pulse 108, blood pressure 116/50, temperature 97.7 and oxygen saturation 91%. GENERAL APPEARANCE: Oriented times three. HEENT: Normal. NECK: No JVP, no bruits. RESPIRATORY: Decreased breath sounds bilaterally rhonchi and bilateral wheeze. CARDIOVASCULAR: S1, S2, no S3, no murmur. Tachy, fibrillation No cyanosis, clubbing. No ascites. GI/ABDOMEN: No tenderness. Bowel sounds are active. EXTREMITIES: Trace edema bilateral lower extremities, pulses +1, equal. FAMILY SUPPORT WORKER: Deep tendon reflexes, sensory, motor and gait all normal. RECTAL: 7- Dr. Maloney had an appointment and patient cancelled/PELVIC:- . ASSESSMENT: 1. Acute pneumonitis 2. Shortness of breath 3. Dehydration 4. COPD Exacerbation 5. Acute bronchitis 6. Fungal infection left ankle 7. Left lower leg edema/tender 8. UTI dysuria 9. Chronic bronchitis 10.Allergic bronchitis 11.MARYANA 12.Right knee pain, osteoarthritis 13.Diabetes Mellitus type II, A1c 8.1on 08/26 14.Right pulmonary nodule 15.Severe COPD-steroid dependant 16.Smoker 17.Anemia 18.Fatigue 19.History of UTI's 20.Dysuria 21.Muscle spasms 22.Atrial fibrillation 23.PAD 24.CAD 25.CABG's 26.Noncompliant of lifestyle and medications. PLAN: 1. Routine telemetry orders, No cardiac markers 2. CBC, CMP now and daily 3. ABG on room air now 4. Rocephin 1 gram IV daily times 7 days 5. Zithromax 500mg IV daily times three days 6. Solu-Cortef 125mg IV Q 8 hours 7. Normal saline 75cc an hour IV 8. O2 at 1-2 liters nasal cannula 9. Stat chest x-ray 10.DUO NEBS Q 6 hours scheduled 11.Pulmicort 1.0mg BID scheduled NEB 12.Xanax 0.25mg TID PRN 13.Digoxin level 14.Sliding scale coverage 15.Continue home medications 16.Regular diet 17.Daily INR and now 18.U/A The patient is DNR Status. TIME SPENT: More than 70 minutes. MTDD
[2019-11-27] MEDS ORDERED: ZOCOR PO SCH (17:00)
[2019-11-27] MEDS: ZOCOR PO SCH (17:47)
[2019-11-27] MEDS: COUMADIN PO SCH (17:47)
[2019-11-27] MEDS: PULMICORT 1 MG/2 ML NEB SCH (18:00)
[2019-11-27] MEDS: XANAX PO PRN (20:52)
[2019-11-27] MEDS: CALAN SR PO SCH (20:53)
[2019-11-27] MEDS ORDERED: NEURONTIN PO SCH (21:00)
[2019-11-27] MEDS ORDERED: LEVEMIR SUBCUT SCH (21:00)
[2019-11-27] MEDS ORDERED: CALAN SR PO SCH (21:00)
[2019-11-28] MEDS: SODIUM CHLORIDE 1,000 ML IV SCH ×2 (02:37→19:15)
[2019-11-28] MEDS: PULMICORT 1 MG/2 ML NEB SCH ×2 (04:45→17:32)
[2019-11-28] MEDS: DUONEB NEB SCH ×4 (04:45→22:07)
[2019-11-28] MEDS: SOLU-CORTEF 250 MG IVP SCH ×3 (05:35→20:06)
[2019-11-28] MEDS: HUMULIN R SUBCUT PRN ×4 (05:59→20:08)
[2019-11-28] MEDS: CALAN SR PO SCH ×2 (08:38→20:03)
[2019-11-28] MEDS: COZAAR PO SCH (08:38)
[2019-11-28] MEDS: ASPIRIN EC PO SCH (08:38)
[2019-11-28] MEDS: LANOXIN PO SCH (08:39)
[2019-11-28] MEDS: ROCEPHIN 1 GM/50 ML D5W 1 GM/50 ML BAG IV SCH (08:39)
[2019-11-28] MEDS: LEVEMIR SUBCUT SCH ×2 (08:40→20:16)
[2019-11-28] MEDS: NORCO 10-325 PO PRN (10:20)
[2019-11-28] MEDS: ZITHROMAX 500 MG in SODIUM CHLORIDE 250 ML IV SCH (10:21)
[2019-11-28] MEDS: XANAX PO PRN ×2 (13:04→20:03)
[2019-11-28] MEDS: ZOCOR PO SCH (16:35)
[2019-11-28] MEDS: COUMADIN PO SCH (16:35)
[2019-11-28] MEDS: NEURONTIN PO SCH (20:03)
[2019-11-29] MEDS: PULMICORT 1 MG/2 ML NEB SCH ×2 (04:48→16:55)
[2019-11-29] MEDS: DUONEB NEB SCH ×4 (04:48→23:15)
[2019-11-29] MEDS: SOLU-CORTEF 250 MG IVP SCH ×3 (05:36→21:12)
[2019-11-29] MEDS: SODIUM CHLORIDE 1,000 ML IV SCH ×2 (07:54→22:17)
[2019-11-29] MEDS: CALAN SR PO SCH ×2 (09:24→21:12)
[2019-11-29] MEDS: LANOXIN PO SCH (09:24)
[2019-11-29] MEDS: COZAAR PO SCH (09:24)
[2019-11-29] MEDS: ASPIRIN EC PO SCH (09:24)
[2019-11-29] MEDS: LEVEMIR SUBCUT SCH ×2 (09:25→21:12)
[2019-11-29] MEDS: INVANZ 1 GM in SODIUM CHLORIDE 50 ML IV SCH (09:51)
[2019-11-29] MEDS: ROCEPHIN 1 GM/50 ML D5W 1 GM/50 ML BAG IV SCH ×2 (10:02→14:07)
[2019-11-29] MEDS: ZITHROMAX 500 MG in SODIUM CHLORIDE 250 ML IV SCH (11:08)
[2019-11-29] MEDS: HUMULIN R SUBCUT PRN ×3 (11:19→19:52)
[2019-11-29] MEDS: NORCO 10-325 PO PRN (11:56)
[2019-11-29] MEDS: XANAX PO PRN ×2 (11:56→23:04)
[2019-11-29] MEDS: MEGACE PO SCH (13:33)
--- NOTE | 2019-11-29 14:41 | PN ---
DATE OF SERVICE: 11/28/2019 SUBJECTIVE: The patient was seen and examined this morning. The patient's condition seems to have improved. She is eating a little bit better. She says that she was able to sleep some. She is coughing less. REVIEW OF SYSTEMS: CONSTITUTIONAL: No night sweats. No fatigue, malaise, lethargy. No fever or chills. HEENT: Eyes: No visual changes. No eye pain. No eye discharge. ENT: No runny nose. No epistaxis. No sinus pain. No sore throat. No odynophagia. No congestion. RESPIRATORY: No cough, no congestion. No hemoptysis. No shortness of breath. CARDIOVASCULAR: No angina symptoms. No CHF symptoms. No atypical chest pain for CAD. No palpitations. No PND. No orthopnea. GASTROINTESTINAL: No abdominal pain. No nausea or vomiting. No diarrhea or constipation. No hematemesis. No hematochezia. GENITOURINARY: No urgency. No frequency. No dysuria. No hematuria. No obstructive symptoms. No discharge. No pain. No significant abnormal bleeding. MUSCULOSKELETAL: No musculoskeletal pain; no joint swelling. NEUROLOGICAL: No headache. No neck pain. No syncope. No seizures. No dizziness. PSYCHIATRIC: Not anxious. No depression. No suicidal thoughts. No homicidal thoughts. SKIN: No rash. No lesions. No wounds. ENDOCRINE: No unexplained weight loss. No weight gain. HEMATOLOGIC/LYMPHATIC: No anemia. No purpura. No petechiae. No prolonged or excessive bleeding. No palpable lymph nodes. PHYSICAL EXAMINATION: HEENT: Head normocephalic, atraumatic. Eyes: Extraocular muscles are intact. Pupils are equal, round and reactive to light and accommodation. Ears: No lesions. Nose appeared normal. Throat: No exudate or erythema. NECK: Supple. No JVD, no carotid bruit. No lymphadenopathy or thyromegaly. LUNGS: Decreased breath sounds with mild wheeze. Clear to auscultation. Percussion note normal. Chest symmetrical. HEART: S1, S2, no S3. No murmurs. No cyanosis or clubbing. No ascites. Pulses: Dorsalis pedis and posterior tibial pulses +1 to +2 bilaterally. ABDOMEN: Soft. Nontender. Bowel sounds active. No CVA tenderness. No mass felt. EXTREMITIES: No edema. Full range of motion of all extremities, equal. NEUROLOGIC: No focal deficit. Cranial nerves II through XII are grossly intact. No headache, no double vision or headache. SKIN: Not dry. Intact. Turgor - normal. LYMPHATIC: No palpable lymph nodes/no lymphedema. MUSCULOSKELETAL: Normal joints with no swelling. Muscle tone is normal. LABS: Telemetry is sinus rhythm with no acute changes. Blood gasses showed acute respiratory failure with 2 liters of oxygen. The patient's oxygen saturation is more than 90%. ASSESSMENT: 1. Severe chronic bronchitis with acute exacerbation. The patient had coronary bypass surgery and multiple other comorbidities. The patient is a heavy smoker and has continued to smoke. PLAN: 1. The patient is going to be treated with Rocephin, NEBS and steroids 2. Cardiovascular status is stable with no evidence of any acute myocardial event. 3. Strongly advised to quit smoking, counseling for smoking done. 4. All side effects of steroids has been discussed as the patient has been steroids off and on for past several months. She doesn't seem to be in any distress but her prognosis is poor. CONDITION: Stable. TIME SPENT: More than 30 minutes. Plan and coordination of the patient's care discussed in the presence of nurse. STEFANO
[2019-11-29] MEDS: ZOCOR PO SCH (17:08)
[2019-11-29] MEDS: NEURONTIN PO SCH (21:12)
[2019-11-30] MEDS: SODIUM CHLORIDE 1,000 ML IV SCH ×4 (03:22→21:38)
[2019-11-30] MEDS: PULMICORT 1 MG/2 ML NEB SCH ×2 (04:40→16:50)
[2019-11-30] MEDS: DUONEB NEB SCH ×4 (04:40→23:30)
[2019-11-30] MEDS: SOLU-CORTEF 250 MG IVP SCH ×3 (04:44→21:38)
--- NOTE | 2019-11-30 08:14 | PCM.PROG ---
Attending Provider: ATTENDING PROVIDER: Dr. SAMUEL BELLO This patient is seen with Lashawn Austin, Nurse Practitioner. DATE OF SERVICE: 11/30/19 SUBJECTIVE: This 84 year old /WHITE F was hospitalized 11/27/19. The patient is resting comfortably. She is not eating much. Still short of breath. REVIEW OF SYSTEMS: CONSTITUTIONAL: No night sweats. No fatigue, malaise, lethargy. No fever or chills. Weakness. HEENT: Eyes: No visual changes. No eye pain. No eye discharge. ENT: No runny nose. No epistaxis. No sinus pain. No odynophagia. No congestion. RESPIRATORY: Cough, no congestion. No hemoptysis. Shortness of breath. CARDIOVASCULAR: No angina symptoms. No CHF symptoms. No atypical chest pain for CAD. No palpitations. No orthopnea.. GASTROINTESTINAL: No abdominal pain. No nausea or vomiting. No diarrhea or constipation. No hematemesis. No hematochezia. Diminished appetite. GENITOURINARY: No urgency. No frequency. No dysuria. No hematuria. No obstructive symptoms. No discharge. No pain. No significant abnormal bleeding. MUSCULOSKELETAL: No musculoskeletal pain; no joint swelling. NEUROLOGICAL: Awake, alert, oriented to time, place and person. No headache. No neck pain. No syncope. No seizures. No dizziness. PSYCHIATRIC: Not anxious. No depression. No suicidal thoughts. No homicidal thoughts. SKIN: No rash. No lesions. No wounds. ENDOCRINE: No unexplained weight loss. No weight gain. HEMATOLOGIC/LYMPHATIC: No anemia. No purpura. No petechiae. No prolonged or excessive bleeding. No palpable lymph nodes. PHYSICAL EXAMINATION: GENERAL: The patient is awake, alert and oriented, lying in bed in no distress. VITAL SIGNS: Temperature 97.4 F, Pulse 87, Respiratory Rate 18, BP 138/64, Pulse Ox 99% HEENT: Head normocephalic, atraumatic. Eyes: Extraocular muscles are intact. Pupils are equal, round and reactive to light and accommodation. Ears: No lesions. Nose appeared normal. Throat: No exudate or erythema. NECK: Supple. No JVD, no carotid bruit. No lymphadenopathy or thyromegaly. LUNGS: Diminished breath sounds bilateral rhonchi. Clear to auscultation. Percussion note normal. Chest symmetrical. HEART: S1, S2, no S3. No murmurs. No cyanosis or clubbing. No ascites. Pulses: Dorsalis pedis and posterior tibial pulses +1 to +2 both sides. ABDOMEN: Soft. Non-tender. Bowel sounds active. No CVA tenderness. No mass felt. EXTREMITIES: No edema. Full range of motion of all extremities, equal. NEUROLOGIC: No focal deficit. Cranial nerves II through XII are grossly intact. No headache, no double vision or headache. SKIN: Not dry. Intact. Turgor-normal. LYMPHATIC: No palpable lymph nodes/no lymphedema. MUSCULOSKELETAL: Normal joints with no swelling. Muscle tone is normal. LAB REVIEW: 11/30/19 04:22 11/30/19 04:22 11/30/19 04:22: PT 47.3 H, INR 5.31 H* 11/30/19 04:22: Sodium 142.2, Potassium 4.58, Chloride 107.0, Carbon Dioxide 34.8 H, Anion Gap 4.98, BUN 25.3 H, Creatinine 0.56 L, Estimated GFR (MDRD) 103.00, BUN/Creatinine Ratio 45.17, Glucose 95.8 D, Calcium 8.90, Total Bilirubin 0.19 L, AST 44.9 H, ALT 39.0 H, Alkaline Phosphatase 92.6 D, Total Protein 6.45, Albumin 3.37 L, Globulin 3.08, Albumin/Globulin Ratio 1.09 11/30/19 04:22: WBC 13.50 H, RBC 3.71 L, Hgb 11.0 L, Hct 36.0 L, MCV 97.0, MCH 29.6, MCHC 30.6 L, RDW Coeff of Leland 14.0, Plt Count 235, Immature Gran % (Auto) 0.7, Neut % (Auto) 88.1 H, Lymph % (Auto) 6.0 L, O'Brien % (Auto) 5.1, Eos % (Auto) 0.0, Baso % (Auto) 0.1, Immature Gran # (Auto) 0.1, Neut # (Auto) 11.9 H, Lymph # (Auto) 0.8, O'Brien # (Auto) 0.7, Eos # (Auto) 0.0, Baso # (Auto) 0.0 11/29/19 19:10: Glucose 334.4 H D ASSESSMENT: Please see below. 1. Acute pneumonitis 2. Acute COPD exacerbation 3. UTI, positive e-coli 4. Atrial fibrillation on Coumadin 5. Diabetes Mellitus type 2 PLAN: 1. Continue IV antibiotics 2. Continue IV fluids 3. Continue to hole Coumadin Plan and coordination of the patient's care discussed in the presence of Examination Supervisor and nurse. SCRIBED BY: Jaylene GUADALUPEist scribed while in presence of service performed by Dr. Bello/Lashawn Austin APRN on 11/30/19 ([id number])
--- NOTE | 2019-11-30 08:27 | RS.PTINEVL ---
Subjective - Patient information Date of Evaluation: 11/29/19 Date of Arrival on Unit: 11/27/19 Admitted From:: Home Diagnosis: acute pneumonitis, SOA Usual Living Arrangement: With Spouse Home Environment: House Medical History: Hypertension, COPD, Diabetes, Arthritis Medical History Comments:: CAD, PAD, pumonary nodule, anemia, bronchitis, Afib. LATEX ALLERGY?: No Surgical History: CABG Medications: see chart Subjective Information/ Patient Comments:: pt states " I have to get out of this bed." pt voiced concerns regarding needing to get well to take care of 12y/o granddtr. - Level of function Prior to this admission, the patient could do the following:: Independent Selfcare, Independent ADL's, Drive Current Level of Function: Partially Dependent Current Equipment Used at Home: Nebulizer, glucometer, O2, rolling walker Interventions - Objective Patient Orientation: Person, Place, Time, Situation Current Interventions: IV's, Oxygen (2 liters), Telemetry Observation: pt with significant forward head, increased thoracic kyphosis, rounded shlds Range of Motion - ROM Right Upper Extremity AROM: Slight limitation Left Upper Extremity AROM: Slight limitation Right Lower Extremity AROM: WFL's Left Lower Extremity AROM: WFL's Muscle Strength - Muscle Strength Right Upper Extremity Strength: Mild Weakness (shld flex 4-/5, elbow flex/ext 4/5) Left Upper Extremity Strength: Mild Weakness (shld flex 4-/5, elbow flex/ext 4/5) Right Lower Extremity Strength: Mild Weakness (hip flex 4-/5, knee flex/ext 4/5, ankle DF/PF 4/5) Left Lower Extremity Strength: Mild Weakness (hip flex 4-/5, knee flex/ext 4/5, ankle DF/PF 4/5) Sensation - Sensation Right Upper Extremity Sensation: Intact/Normal Left Upper Extremity Sensation: Intact/Normal Right Lower Extremity Sensation: Intact/Normal Left Lower Extremity Sensation: Intact/Normal Palpation Palpation Findings: None/Normal Balance - Sitting Balance and Reactions Static Sitting Balance: Fair Dynamic Sitting Balance: Fair Sitting Equilibrium Reactions: Delayed Left, Delayed Right Sitting Protective Reactions: Delayed Left, Delayed Right - Standing Balance and Reactions Static Standing Balance: Poor Dynamic Standing Balance: Poor Standing Equilibrium Reactions: Delayed Left, Delayed Right Standing Protective Reactions: Delayed Left, Delayed Right Functional Mobility - Bed Mobility Rolling R/L: CGA Scooting: Mod Assist Supine to Sit: Min Assist, 1 person assist - Transfers Sit to Stand: Min Assist, 1 person assist Stand to Sit: Min Assist, 1 person assist - Safety Awareness Safety Awareness: Poor JENNI INDEX SCORE: n/a Ambulation - Ambulation Assistive Device Used: Rolling Walker Orthotic/Prosthetic Device: No Distance: 25ft Assistance needed with Ambulation: 1 person assist, 2 person assist Quality of Ambulation: pt amb with min x 1 +1 for IV and O2 Gait Deviations: Forward posture, Short stride, Deviates from path Ambulation Comments: pt amb with significant flexed posture, decreased step length and pt requires assist to guide rwx. Factors Affecting Ambulation: Decreased Balance, Breathing/O2 Saturation, Weakness, Decreased Safety, Cognitive Status, Limited Endurance Treatment time - Time with patient Length of Evaluation: 23 Total treatment time: 27 Patient Education - Education Patient Education: Activity Modification, Education of Plan of Care Teaching Recipient: Patient Teaching Methods: Discussion Comments: discussion regarding POC Assessment - Assessment Problem List:: Decreased level of function, Requires training/education, Decreased safety/Risk of falls, Weakness, Cognitive status limits abilities Rehab Potential: Fair Further Therapy Indicated?: Yes Candidate for Swing Bed for Therapy Services?: Feel pt would need to be reassessed at a later date for swing bed. Evaluation Complexity: HISTORY: Medium, EXAM OF BODY SYSTEMS: Medium, CLINICAL PRESENTATION: Medium, CLINICAL DECISION MAKING: Medium Patient's Goal(s): Go home and be as independent as possible RAJWINDER Short Term Goals GOAL #1: pt demonstrate independence with bed mobility Goal to be met by: 12/01/19 GOAL #2: Transfer sup to/from sit CGA Goal to be met by: 12/01/19 GOAL #3: Sit to/from stand CGA Goal to be met by: 12/01/19 GOAL #4: pt amb with rollator rwx 75ft with CGA to min with O2 no LOB Goal to be met by: 12/01/19 Residential Goals GOAL #1: pt transfer sup to/from sit independently, sit to/from stand SBA to I Goal to be met by: 12/04/19 GOAL #2: pt amb with rollator rwx SBA functional household distances with no LOB Goal to be met by: 12/04/19 GOAL #3: Improve dyn stand balance fair + Goal to be met by: 12/04/19 Plan Plan of Care: Therapeutic EX, Therapeutic Activity Other:: gait training Frequency of Treatment: 1-2 X day, as tolerated Duration of Treatment: 5 days Anticipated Discharge Destination: Home Treatment Diagnosis (ICD 10 Codes): R 26.91 balance impaired. R 26.2 difficul ty walking. Z91.81 risk for falls Has the Physician been added for Co-signature?: Yes
[2019-11-30] MEDS: INVANZ 1 GM in SODIUM CHLORIDE 50 ML IV SCH (08:41)
[2019-11-30] MEDS: LANOXIN PO SCH (08:42)
[2019-11-30] MEDS: CALAN SR PO SCH ×2 (08:42→21:35)
[2019-11-30] MEDS: COZAAR PO SCH (08:42)
[2019-11-30] MEDS: ASPIRIN EC PO SCH (08:42)
[2019-11-30] MEDS: MEGACE PO SCH (08:42)
[2019-11-30] MEDS: LEVEMIR SUBCUT SCH ×2 (08:43→21:39)
[2019-11-30] MEDS: ROCEPHIN 1 GM/50 ML D5W 1 GM/50 ML BAG IV SCH (09:48)
--- NOTE | 2019-11-30 11:26 | PN ---
DATE OF SERVICE: 11/29/19 SUBJECTIVE: 84-year-old white female hospitalized with acute pneumonitis, acute respiratory failure. The patient's condition has steadily improved to some extent. She is talking without much problem. She is still short of breath. Appetite seems to be improving some. She is trying to eat her lunch. The daughter is present in the room. As usual the daughter doesn't have any knowledge of how bad the patient's lung condition is in spite of explaining to her more than 100 times in the past. After explaining to her she understands it but she is emotional. The patient's other problems are coronary artery bypass surgery. The patient has continued to smoke and has very poor lung volumes. REVIEW OF SYSTEMS: CONSTITUTIONAL: No night sweats. No fatigue, malaise, lethargy. No fever or chills. HEENT: Eyes: No visual changes. No eye pain. No eye discharge. ENT: No runny nose. No epistaxis. No sinus pain. No sore throat. No odynophagia. No congestion. RESPIRATORY: Cough with congestion. Cough is producing whitish-yellowish sputum. No hemoptysis. Still complaining of shortness of breath on exertion. CARDIOVASCULAR: No angina symptoms. No CHF symptoms. No atypical chest pain for CAD. No palpitations. No PND. No orthopnea. GASTROINTESTINAL: Appetite improving. No abdominal pain. No nausea or vomiting. No diarrhea or constipation. No hematemesis. No hematochezia. GENITOURINARY: No urgency. No frequency. No dysuria. No hematuria. No obstructive symptoms. No discharge. No pain. No significant abnormal bleeding. MUSCULOSKELETAL: No musculoskeletal pain; no joint swelling. NEUROLOGICAL: No headache. No neck pain. No syncope. No seizures. No dizziness. PSYCHIATRIC: Not anxious. No depression. No suicidal thoughts. No homicidal thoughts. SKIN: No rash. No lesions. No wounds. ENDOCRINE: No unexplained weight loss. No weight gain. HEMATOLOGIC/LYMPHATIC: No anemia. No purpura. No petechiae. No prolonged or excessive bleeding. No palpable lymph nodes. PHYSICAL EXAMINATION: VITAL SIGNS: Temperature 97.6, pulse 90, respiratory rate 20, BP 127/63, pulse ox 95%. HEENT: Head normocephalic, atraumatic. Eyes: Extraocular muscles are intact. Pupils are equal, round and reactive to light and accommodation. Ears: No lesions. Nose appeared normal. Throat: No exudate or erythema. NECK: Supple. No JVD, no carotid bruit. No lymphadenopathy or thyromegaly. LUNGS: Decreased breath sounds with mild wheeze. Percussion note normal. Chest symmetrical. HEART: S1, S2, no S3. No murmurs. No cyanosis or clubbing. No ascites. Pulses: Dorsalis pedis and posterior tibial pulses +1 to +2 bilaterally. ABDOMEN: Soft. Nontender. Bowel sounds active. No CVA tenderness. No mass felt. EXTREMITIES: No edema. Full range of motion of all extremities, equal. NEUROLOGIC: No focal deficit. Cranial nerves II through XII are grossly intact. No headache, no double vision or headache. SKIN: Not dry. Intact. Turgor - normal. LYMPHATIC: No palpable lymph nodes/no lymphedema. MUSCULOSKELETAL: Normal joints with no swelling. Muscle tone is normal. LABS: Hemoglobin 10.5, hematocrit 33, WBC 11,000, normal differential. Creatinine 0.5, BUN 22, potassium 4.2. Oxygen saturation 95% on 2L. ASSESSMENT: 1. ACUTE PNEUMONITIS/BRONCHITIS. 2. SEVERE CHRONIC LUNG DISEASE. 3. CORONARY ARTERY BYPASS SURGERY. 4. ABNORMAL UA WITH POSSIBILITY OF UTI. THE PATIENT HAS E. COLI WHICH IS RESISTANT TO MOST OF THE ANTIBIOTICS EXCEPT FOR ERTAPENEM AND MACROBID (THAT IS NITROFURANTOIN) AND SULFA. MANAGED TO GIVE A COUPLE DOSES OF ERTAPENEM. THE PATIENT IS NOT SYMPTOMATIC FROM UTI. PLAN: 1. In any case will continue IV fluids. 2. Will watch for fluid overload. 3. Encouraged to eat. 4. Continue steroids. 5. Continue nebs treatment. 6. Continue antibiotics, Rocephin and Ertapenem. Zithromax three days is done. CONDITION: Stable. TIME SPENT: More than 30 minutes. Plan and coordination of the patient's care discussed in the presence of nurse. STEFANO
[2019-11-30] MEDS ORDERED: LASIX IVP STA (13:06)
[2019-11-30] MEDS ORDERED: TORADOL IVP PRN (13:06)
[2019-11-30] MEDS: ZOCOR PO SCH (16:58)
[2019-11-30] MEDS: NEURONTIN PO SCH (21:39)
[2019-12-01] MEDS: DUONEB NEB SCH ×4 (04:40→21:39)
[2019-12-01] MEDS: PULMICORT 1 MG/2 ML NEB SCH ×2 (04:40→17:13)
[2019-12-01] MEDS: SOLU-CORTEF 250 MG IVP SCH ×3 (05:01→21:16)
[2019-12-01] MEDS: ASPIRIN EC PO SCH (09:42)
[2019-12-01] MEDS: CALAN SR PO SCH ×2 (09:42→21:08)
[2019-12-01] MEDS: INVANZ 1 GM in SODIUM CHLORIDE 50 ML IV SCH (09:42)
[2019-12-01] MEDS: LANOXIN PO SCH (09:43)
[2019-12-01] MEDS: COZAAR PO SCH (09:43)
[2019-12-01] MEDS: MEGACE PO SCH (09:43)
--- NOTE | 2019-12-01 09:50 | ECHO2D ---
Date of Exam: 11/30/19 Ordering Physician: DR. SAMUEL BELLO Room #: [id number] Reason for Echo: SOB, CABG, COPD M-Mode Normal Adult Results LV Dimensions Normal Adult Results AoV Opening excursions >1.6 >1.6 LVEDD-base- 3.5-5.8 4.7 Ao root dimensions 2.0-3.7 3.6 LVESD-base- 3.1-4.6 L. Atrium dimensions 1.9-3.8 4.2 Post. Wall thickness 0.8-1.1 0.9 IV septum (thickness) 0.7-1.2 0.9 Post. Wall excursion 0.72-1.3 NORMAL Septal motion NORMAL Systolic motion R. Ventricular cavity 1.5-2.0 3.0 LVEF 60% 70% Paradoxical septal wall motion NORMAL 2-D : ENLARGED LEFT ATRIAL AND RIGHT VENTRICLE CAVITIES--MITRAL VALVE PROLAPSE LEFT PARASTERNAL LONG AXIS TO APICAL FOUR CHAMBER VIEW--NO EFFUSION, NO THROMBUS, NORMAL LEFT VENTRICLE SIZE M-MODE: MV: MITRAL VALVE PROLAPSE LATE SYSTOLIC AV: NORMAL TV: NORMAL PV: CHAMBER SIZE: ENLARGED LEFT ATRIAL AND RIGHT VENTRICLE CAVITY WALL MOTION: MAYBE HYPOKINETIC SEPTUM PERICARDIUM: NORMAL INTERPRETATION: 1. MAYBE HYPOKINETIC SEPTUM 2. ENLARGED RIGHT VENTRICLE/ LEFT ATRIAL CAVITIES 3. MITRAL VALVE PROLAPSE LATE SYSTOLIC 4. NORMAL LEFT VENTRICULAR EJECTION FRACTION MTDD
[2019-12-01] MEDS: LEVEMIR SUBCUT SCH ×2 (09:51→21:09)
[2019-12-01] MEDS: HUMULIN R SUBCUT PRN ×3 (12:14→21:24)
--- NOTE | 2019-12-01 13:10 | PN ---
DATE OF SERVICE: 11/30/19 SUBJECTIVE: This morning the patient's condition deteriorated respiratory marinelli. She became very drowsy, blood gases at that time showed pH 7.32 with p02 of 112 with pc02 of 62, oxygen saturation 98%. The patient was on 2.5L of oxygen at that time. The patient was very sleepy, was barely responding to the verbal stimulus. The patient was not in any respiratory distress and had shallow respirations. At that point, decision was made to put patient on 28% Vapotherm high flow oxygen. After a couple of hours being on it the blood gases were repeated and the p02 was 89 with pc02 of 48 with pH of 7.44 with 97% saturation. The patient was examined two to three times in the meantime around 2:30-3:00. The patient became more alert. the patient's neck was supple. PHYSICAL EXAMINATION: GENERAL: She was responding to verbal stimulus. HEENT: Head normocephalic, atraumatic. Eyes: Extraocular muscles are intact. Pupils are equal, round and reactive to light and accommodation. Ears: No lesions. Nose appeared normal. Throat: No exudate or erythema. NECK: Supple. No JVD, no carotid bruit. No lymphadenopathy or thyromegaly. LUNGS: Few crepitations. Percussion note normal. Chest symmetrical. HEART: S1, S2, no S3. No murmurs. No cyanosis or clubbing. No ascites. Pulses: Dorsalis pedis and posterior tibial pulses +1 to +2 bilaterally. ABDOMEN: Soft. Nontender. Bowel sounds active. No CVA tenderness. No mass felt. EXTREMITIES: No edema. Full range of motion of all extremities, equal. NEUROLOGIC: No focal deficit. Cranial nerves II through XII are grossly intact. No headache, no double vision or headache. SKIN: Not dry. Intact. Turgor - normal. LYMPHATIC: No palpable lymph nodes/no lymphedema. MUSCULOSKELETAL: Normal joints with no swelling. Muscle tone is normal. ASSESSMENT: Worsening of respiratory status, could be from generalized deterioration of overall condition with tired respiratory muscles. The patient has generalized anasarca building up. Echocardiogram was done which showed mildly hypokinetic septal motion, practically near normal LV ejection fraction, normal LV cavity size. Valve function is normal. The patient has mitral valve prolapse. PLAN: 1. Give IV 40 mg Lasix. 2. Continue 28% Vapotherm. 3. Encourage the patient to eat. 4. Hold Lortab - that is narcotic and Xanax. 5. Continue Ertapenem. The patient's status discussed including the patient's diabetes mellitus, history of coronary artery bypass surgery, severe peripheral arteral disease, history of severe smoking with severe COPD with bronchitis and urinary tract infection with E. coli, ESBL, all discussed with the daughter. is also present in the room. Prognosis is poor. The patient's condition has improved since morning. Will continue steroids, nebs along with Ertapenem, IV Lasix, monitor arterial blood gases, encourage the patient to eat. The patient's prognosis is not good. Condition is critical. The patient is DNI. TIME SPENT: Total time spent today patient care more than 75 minutes. Plan and coordination of the patient's care discussed in the presence of nurse. STEFANO
[2019-12-01] MEDS ORDERED: DIFLUCAN PO STA (14:26)
--- NOTE | 2019-12-01 16:27 | RS.BEDDYS ---
Subjective Date of Evaluation: 12/01/19 Diagnosis: SOB, weakness Current Level of Function: This 84 year old female was transitioned into the unit for SOB and lethargy. Pt has no hx of swallowing difficulty. RN noted pt with difficulty masticating food, containing food in mouth, and swallowing re gular diet textures. SOCIAL MEDIA ASSISTANT requested down grade to mechanical soft diet until pt increased alertness or regained strength. Pt is at risk for aspiration. Current Diet: mechanical soft with thin liquids. Current Subjective/complaints:: The patient was sitting up in chair and talkative when SOCIAL MEDIA ASSISTANT arrived. She reported having no appetite. She stated that she "had trouble swallowing yesterday (this date), but its better today." She went on to report that she was not wanting to eat most food presented to her, but her daughter is constantly bringing food to her. The daughter and SOCIAL MEDIA ASSISTANT discussed pts risks for aspiration d/t SOB and general weakness. Nursing in-patient coordinator was present for initial questioning and discussion with daughter and pt. The nurse coordinator verbally discussed the patients general well-being and safety with all PO intake. Medical History Comments:: a-fib, DM 2, COPD, chronic bronchitis. Patient's Goals: To consume safest and least restrictive diet texture. General Information - General Denture Type: Full- Upper & Lower (Cream on upper and lowers.) Patient Orientation: Person, Place, Time, Situation Ability to Follow Directions: Excellent Is Patient able to Repeat Directions?: Yes Oral Expression Ability: No Impairment - Voice Voice Quality: Breathy Oral-Facial Assessment - Face Facial Symmetry: Symmetrical - Dental/Labial Lip Protrusion: Normal Lip Retraction: Normal Puff Cheeks: Normal - Lingual Protrusion: Normal Retraction: Normal Tip Lateralization: Weak Repeated Tip Lateralization: Weak Tip Elevation: Normal Repeated Tip Elevation: Normal Food Presentation - Solids Food Presented: Regular (finger foods) Behaviors/Comments: SOCIAL MEDIA ASSISTANT presented regular food texture to pt. Pt agreed to take one bite. SOCIAL MEDIA ASSISTANT noted pt with mildly prolonged mastication. No residuals, swallowed one time. No overt s/s of aspiration. Pt demonstrated some mouth fang thing and SOB with PO consumption. - Liquids Liquid Presented: Thin (Via straw) Behaviors/Comments: Pt took small sips and consecutive straw drinks. Pt became SOB. No overt s/s of aspiration. - Recommendations: Dysphagia Evaluation Dietary Recommendations: Normal Comments:: No restrictions, may not eat all regular textues due to preference. Dysphagia Swallow Precautions/Strategies: Sitting Upright (90 deg) Comments:: Pt to have meal set-up assistance. Pt to have intermittent monitoring with meal. Pt to pace, take small breaks, and decrease SOB with PO intake. Safe swallow and aspiration precautions to be followed. Pt to have dentures in mouth with cream for all meals. Oral care post meals to reduce oral residue. - Summary Dysphagia Evaluation Summary: Pt is characterized with general weakness in oral phase of swallow. SOCIAL MEDIA ASSISTANT attributes prolonged mastication and difficulty with bolus formation to general weakness. Pt does demonstrate SOB with PO intake, which increases risk for aspiration. Further Therapy Indicated?: No Functional Reporting G Codes: n/a Severity Impairment Rationale: n/a Plan Duration of Treatment: One Time Treatment Frequency of Treatment: One time treatment Anticipated Discharge Destination: Home Comments: SOCIAL MEDIA ASSISTANT will not complete swallow therapy. However, nursing to monitor pt and SOB with meals to reduce risks for inhaling food particles. Family was educated on pacing, small meals, and watching for SOB with all PO intake. Daughter verbalized agreement. - Treatment Code (1) Dysphagia Code(s): R13.10 - Dysphagia, unspecified
[2019-12-01] MEDS ORDERED: COUMADIN PO SCH (17:00)
[2019-12-01] MEDS: COUMADIN PO SCH (17:54)
[2019-12-01] MEDS: SODIUM CHLORIDE 1,000 ML IV SCH (18:28)
[2019-12-01] MEDS: NYSTATIN ORAL SUSP PO SCH (21:07)
[2019-12-01] MEDS: VISTARIL INJ IM PRN (21:08)
[2019-12-01] MEDS: NEURONTIN PO SCH (21:08)
[2019-12-02] MEDS: PULMICORT 1 MG/2 ML NEB SCH ×2 (05:20→18:05)
[2019-12-02] MEDS: DUONEB NEB SCH ×4 (05:20→23:10)
[2019-12-02] MEDS: SOLU-CORTEF 250 MG IVP SCH ×2 (06:17→21:21)
[2019-12-02] MEDS: NYSTATIN ORAL SUSP PO SCH ×5 (06:18→21:27)
[2019-12-02] MEDS: SODIUM CHLORIDE 1,000 ML IV SCH ×2 (07:29→14:38)
[2019-12-02] MEDS: ZOCOR PO SCH ×2 (08:37→17:51)
[2019-12-02] MEDS: LANOXIN PO SCH (08:40)
[2019-12-02] MEDS: CALAN SR PO SCH ×2 (08:40→21:26)
[2019-12-02] MEDS: COZAAR PO SCH (08:40)
[2019-12-02] MEDS: INVANZ 1 GM in SODIUM CHLORIDE 50 ML IV SCH (08:40)
[2019-12-02] MEDS: ASPIRIN EC PO SCH (08:40)
[2019-12-02] MEDS: MEGACE PO SCH (08:40)
[2019-12-02] MEDS: LEVEMIR SUBCUT SCH ×2 (08:41→21:28)
[2019-12-02] MEDS: HUMULIN R SUBCUT PRN ×2 (13:32→21:30)
[2019-12-02] MEDS: K-DUR PO SCH ×2 (14:34→17:51)
[2019-12-02] MEDS ORDERED: COUMADIN PO ONE (17:15)
[2019-12-02] MEDS: COUMADIN PO SCH (17:52)
[2019-12-02] MEDS ORDERED: SOLU-CORTEF 250 MG IVP SCH (21:00)
[2019-12-02] MEDS: NEURONTIN PO SCH (21:27)
[2019-12-03] MEDS: SODIUM CHLORIDE 1,000 ML IV SCH ×2 (05:00→17:19)
[2019-12-03] MEDS: PULMICORT 1 MG/2 ML NEB SCH ×2 (05:20→17:41)
[2019-12-03] MEDS: DUONEB NEB SCH ×4 (05:20→21:04)
[2019-12-03] MEDS: NYSTATIN ORAL SUSP PO SCH ×4 (05:55→21:07)
[2019-12-03] MEDS: INVANZ 1 GM in SODIUM CHLORIDE 50 ML IV SCH (08:45)
[2019-12-03] MEDS: SOLU-CORTEF 250 MG IVP SCH ×2 (08:45→21:06)
[2019-12-03] MEDS: MEGACE PO SCH (08:45)
[2019-12-03] MEDS: CALAN SR PO SCH ×2 (08:46→21:07)
[2019-12-03] MEDS: K-DUR PO SCH ×3 (08:46→17:19)
[2019-12-03] MEDS: ASPIRIN EC PO SCH (08:46)
[2019-12-03] MEDS: COZAAR PO SCH (08:46)
[2019-12-03] MEDS: LANOXIN PO SCH (08:46)
[2019-12-03] MEDS: LEVEMIR SUBCUT SCH ×2 (11:17→21:06)
[2019-12-03] MEDS: HUMULIN R SUBCUT PRN ×2 (16:14→21:05)
[2019-12-03] MEDS: COUMADIN PO SCH (16:17)
[2019-12-03] MEDS: ZOCOR PO SCH (16:17)
[2019-12-03] MEDS: NEURONTIN PO SCH (21:07)
[2019-12-03] MEDS: VISTARIL INJ IM PRN (21:14)
[2019-12-04] MEDS: PULMICORT 1 MG/2 ML NEB SCH (04:30)
[2019-12-04] MEDS: DUONEB NEB SCH ×2 (04:30→11:10)
[2019-12-04] MEDS: NYSTATIN ORAL SUSP PO SCH ×2 (05:45→11:58)
[2019-12-04 05:53] VITALS: BP 133/59; TEMP 97.7
[2019-12-04] MEDS ORDERED: LEXAPRO PO SCH (09:00)
[2019-12-04] MEDS ORDERED: PROTONIX PO SCH (09:00)
[2019-12-04] MEDS ORDERED: INVANZ 1 GM in SODIUM CHLORIDE 50 ML IV SCH (09:01)
[2019-12-04] MEDS: MEGACE PO SCH (10:07)
[2019-12-04] MEDS: ASPIRIN EC PO SCH (10:08)
[2019-12-04] MEDS: LANOXIN PO SCH (10:08)
[2019-12-04] MEDS: COZAAR PO SCH (10:08)
[2019-12-04] MEDS: CALAN SR PO SCH (10:08)
[2019-12-04] MEDS: K-DUR PO SCH ×2 (10:09→11:58)
[2019-12-04] MEDS: LEVEMIR SUBCUT SCH (10:09)
[2019-12-04] MEDS: HUMULIN R SUBCUT PRN (11:39)
[2019-12-04] MEDS: INVANZ 1 GM in SODIUM CHLORIDE 50 ML IV SCH (12:26)
--- NOTE | 2019-12-04 13:37 | PN ---
DATE OF SERVICE: 12/04/2019 SUBJECTIVE: 84 year old white female seen today. The patient's condition has improved remarkably. She is sitting up by the side of the bed. She is able to go to the bathroom on her own. Oxygen saturation is 92% on room air. REVIEW OF SYSTEMS: CONSTITUTIONAL: No night sweats. No fatigue, malaise, lethargy. No fever or chills. HEENT: Eyes: No visual changes. No eye pain. No eye discharge. ENT: No runny nose. No epistaxis. No sinus pain. No sore throat. No odynophagia. No congestion. RESPIRATORY: No cough, no congestion. No hemoptysis. No shortness of breath. CARDIOVASCULAR: No angina symptoms. No CHF symptoms. No atypical chest pain for CAD. No palpitations. No PND. No orthopnea. GASTROINTESTINAL: No abdominal pain. No nausea or vomiting. No diarrhea or constipation. No hematemesis. No hematochezia. Appetite seems to be improving. GENITOURINARY: No urgency. No frequency. No dysuria. No hematuria. No obstructive symptoms. No discharge. No pain. No significant abnormal bleeding. MUSCULOSKELETAL: No musculoskeletal pain; no joint swelling. NEUROLOGICAL: No headache. No neck pain. No syncope. No seizures. No dizziness. PSYCHIATRIC: Not anxious. No depression. No suicidal thoughts. No homicidal thoughts. SKIN: No rash. No lesions. No wounds. ENDOCRINE: No unexplained weight loss. No weight gain. HEMATOLOGIC/LYMPHATIC: No anemia. No purpura. No petechiae. No prolonged or excessive bleeding. No palpable lymph nodes. PHYSICAL EXAMINATION: VITAL SIGNS: Temperature 97.7, pulse 80, respiratory rate 18, blood pressure 133/60 and pulse ox 99%. HEENT: Head normocephalic, atraumatic. Eyes: Extraocular muscles are intact. Pupils are equal, round and reactive to light and accommodation. Ears: No lesions. Nose appeared normal. Throat: No exudate or erythema. NECK: Supple. No JVD, no carotid bruit. No lymphadenopathy or thyromegaly. LUNGS: Decreased breath sounds but clear to auscultation. Percussion note normal. Chest symmetrical. HEART: S1, S2, no S3. No murmurs. No cyanosis or clubbing. No ascites. Pulses: Dorsalis pedis and posterior tibial pulses +1 to +2 bilaterally. ABDOMEN: Soft. Nontender. Bowel sounds active. No CVA tenderness. No mass felt. EXTREMITIES: No edema. Full range of motion of all extremities, equal. NEUROLOGIC: No focal deficit. Cranial nerves II through XII are grossly intact. No headache, no double vision or headache. SKIN: Not dry. Intact. Turgor - normal. LYMPHATIC: No palpable lymph nodes/no lymphedema. MUSCULOSKELETAL: Normal joints with no swelling. Muscle tone is normal. LABS: Hgb 10.1, hct 31, WBC 8,500 normal differential, creatinine 1.5, BUN 22, potassium 3.7 ASSESSMENT: 1. Respiratory failure seems to have resolved 2. Acute bronchitis is under control PLAN: 1. Appetite has improved 2. Kidney functions are better. 3. Overall respiratory status and cardiovascular status stable. 4. No evidence of CHF 5. Counseling for smoking done 6. The patient is going to be taken off Solu-Cortef and put her on Prednisone; the plan will be discontinued after a couple of doses 7. The patient is going to be evaluated for swing bed. TIME SPENT: More than 30 minutes. Plan and coordination of the patient's care discussed in the presence of nurse. STEFANO
--- NOTE | 2019-12-04 14:00 | PN ---
DATE OF SERVICE: 12/03/2019 SUBJECTIVE: 84 year old white female seen today. She is a doing a lot better, sitting up in the chair. The daughter is present in the room. REVIEW OF SYSTEMS: CONSTITUTIONAL: No night sweats. No fatigue, malaise, lethargy. No fever or chills. HEENT: Eyes: No visual changes. No eye pain. No eye discharge. ENT: No runny nose. No epistaxis. No sinus pain. No sore throat. No odynophagia. No congestion. RESPIRATORY: No cough, no congestion. No hemoptysis. No shortness of breath. CARDIOVASCULAR: No angina symptoms. No CHF symptoms. No atypical chest pain for CAD. No palpitations. No PND. No orthopnea. GASTROINTESTINAL: No abdominal pain. No nausea or vomiting. No diarrhea or constipation. No hematemesis. No hematochezia. Appetite seems to be improving. GENITOURINARY: No urgency. No frequency. No dysuria. No hematuria. No obstructive symptoms. No discharge. No pain. No significant abnormal bleeding. MUSCULOSKELETAL: No musculoskeletal pain; no joint swelling. Walking and taking steps. NEUROLOGICAL: No headache. No neck pain. No syncope. No seizures. No dizziness. PSYCHIATRIC: Not anxious. No depression. No suicidal thoughts. No homicidal thoughts. SKIN: No rash. No lesions. No wounds. ENDOCRINE: No unexplained weight loss. No weight gain. HEMATOLOGIC/LYMPHATIC: No anemia. No purpura. No petechiae. No prolonged or excessive bleeding. No palpable lymph nodes. PHYSICAL EXAMINATION: VITAL SIGNS: Temperature 98.1, pulse 78, respiratory rate 16, blood pressure 139/66, pulse ox 98% with 2 liters. HEENT: Head normocephalic, atraumatic. Eyes: Extraocular muscles are intact. Pupils are equal, round and reactive to light and accommodation. Ears: No lesions. Nose appeared normal. Throat: No exudate or erythema. NECK: Supple. No JVD, no carotid bruit. No lymphadenopathy or thyromegaly. LUNGS:Decreased breath sounds. Good air entry. Clear to auscultation. Percussion note normal. Chest symmetrical. HEART: S1, S2, no S3. No murmurs. No cyanosis or clubbing. No ascites. Pulses: Dorsalis pedis and posterior tibial pulses +1 to +2 bilaterally. ABDOMEN: Soft. Nontender. Bowel sounds active. No CVA tenderness. No mass felt. EXTREMITIES: Less edema noted on the body. Full range of motion of all extremities, equal. NEUROLOGIC: No focal deficit. Cranial nerves II through XII are grossly intact. No headache, no double vision or headache. SKIN: Not dry. Intact. Turgor - normal. LYMPHATIC: No palpable lymph nodes/no lymphedema. MUSCULOSKELETAL: Normal joints with no swelling. Muscle tone is normal. LABS: hgb 9.9, hct 31, WBC 7,700 normal differential, creatinine 0.5, BUN 21, potassium 3.5. ASSESSMENT: 1. Acute respiratory failure Seems to be under control 2. Renal insufficiency has resolved 3. INR is 2.6 which is normal. 4. Hypokalemia was seen yesterday with potassium supplement K-Tab 20meq TID has resolved 5. Hyperglycemia which was out of control on admission seems to be under control with sliding scale with coverage PLAN: 1. Continue NEBS, steroids and antibiotics 2. IV Lasix was given a couple times with less fluid retention and symptoms of CHF seems to have resolved. 3. Counseling for smoking done. Strongly advised to quit smoking. PROGNOSIS: Not good unless the patient changes her lifestyle. TIME SPENT: More than 30 minutes. Plan and coordination of the patient's care discussed in the presence of nurse. STEFANO
--- NOTE | 2019-12-04 14:42 | PN ---
DATE OF SERVICE: 12/02/2019 SUBJECTIVE: 84 year old white female hospitalized with respiratory failure, kidney failure and coagulopathy. The patient's condition seems to have improved remarkably. Her appetite has improved. She is eating more than any time in past 4-5 days of her hospitalization. The daughter is present in the room. She is very happy with it. Her blood gasses this morning on Fi02 of 28% on Vapotherm pH 7.44 with pO2 86 with pCO2 of 57 with 97% saturation. REVIEW OF SYSTEMS: CONSTITUTIONAL: No night sweats. No fatigue, malaise, lethargy. No fever or chills.Weakness and generalized ache. HEENT: Eyes: No visual changes. No eye pain. No eye discharge. ENT: No runny nose. No epistaxis. No sinus pain. No sore throat. No odynophagia. No congestion. RESPIRATORY: No cough, no congestion. No hemoptysis. No shortness of breath. CARDIOVASCULAR: No angina symptoms. No CHF symptoms. No atypical chest pain for CAD. No palpitations. No PND. No orthopnea. GASTROINTESTINAL: No abdominal pain. No nausea or vomiting. No diarrhea or constipation. No hematemesis. No hematochezia. GENITOURINARY: No urgency. No frequency. No dysuria. No hematuria. No obstructive symptoms. No discharge. No pain. No significant abnormal bleeding. MUSCULOSKELETAL: No musculoskeletal pain; no joint swelling. NEUROLOGICAL: No headache. No neck pain. No syncope. No seizures. No dizziness. PSYCHIATRIC: Not anxious. No depression. No suicidal thoughts. No homicidal thoughts. SKIN: No rash. No lesions. No wounds. ENDOCRINE: No unexplained weight loss. No weight gain. HEMATOLOGIC/LYMPHATIC: No anemia. No purpura. No petechiae. No prolonged or excessive bleeding. No palpable lymph nodes. PHYSICAL EXAMINATION: VITAL SIGNS: Temperature 98.1, pulse 72, respiratory rate 17, blood pressure 129/54 and pulse ox 97%. HEENT: Head normocephalic, atraumatic. Eyes: Extraocular muscles are intact. Pupils are equal, round and reactive to light and accommodation. Ears: No lesions. Nose appeared normal. Throat: No exudate or erythema. NECK: Supple. No JVD, no carotid bruit. No lymphadenopathy or thyromegaly. LUNGS: Decreased breath sounds but clear to auscultation. Percussion note normal. Chest symmetrical. HEART: S1, S2, no S3. No murmurs. No cyanosis or clubbing. No ascites. Pulses: Dorsalis pedis and posterior tibial pulses +1 to +2 bilaterally. ABDOMEN: Soft. Nontender. Bowel sounds active. No CVA tenderness. No mass felt. EXTREMITIES: No edema. Full range of motion of all extremities, equal. NEUROLOGIC: No focal deficit. Cranial nerves II through XII are grossly intact. No headache, no double vision or headache. SKIN: Not dry. Intact. Turgor - normal. LYMPHATIC: No palpable lymph nodes/no lymphedema. MUSCULOSKELETAL: Normal joints with no swelling. Muscle tone is normal. LABS: Hgb 10.3, hct 31,WBC 7,500 normal differential, creatinine 0.5, BUN 21, potassium 3.1. ASSESSMENT: 1. Respiratory failure 2. Coagulopathy PLAN: 1. Continue Vapotherm for now but wean her off from Vapotherm and put her on 2 liters and monitor oxygen saturation 2. Continue antibiotics Ertapenem for ESBL 3. Continue IV Solu-Cortef, will decrease the dose to 100 Q 12 hours 4. Lasix to be given as needed 5. Will give Potassium supplements for hypokalemia and monitor Potassium level 6. Give extra dose of Warfarin CONDITION: Improved. She ate her breakfast and sat in the chair and able to take a few steps. TIME SPENT: More than 30 minutes. Plan and coordination of the patient's care discussed in the presence of nurse. STEFANO
[2019-12-04] MEDS ORDERED: XANAX PO SCH (21:00)
[2019-12-05] MEDS ORDERED: PREDNISONE PO SCH (08:00)
[2019-12-06] MEDS ORDERED: MACROBID PO SCH (09:00)
--- NOTE | 2019-12-11 11:23 | PN ---
DATE OF SERVICE: 12/01/19 SUBJECTIVE: 84-year-old white female hospitalized with cough, congestion, acute pneumonitis. The patient's condition had deteriorated but now it has shown improvement. She is awake, talking, still complaining of weakness and poor appetite. REVIEW OF SYSTEMS: CONSTITUTIONAL: No night sweats. No fatigue, malaise, lethargy. No fever or chills. HEENT: Eyes: No visual changes. No eye pain. No eye discharge. ENT: No runny nose. No epistaxis. No sinus pain. No sore throat. No odynophagia. No congestion. RESPIRATORY: No cough, no congestion. No hemoptysis. No shortness of breath. CARDIOVASCULAR: No angina symptoms. No CHF symptoms. No atypical chest pain for CAD. No palpitations. No PND. No orthopnea. GASTROINTESTINAL: Appetite is poor. No abdominal pain. No nausea or vomiting. No diarrhea or constipation. No hematemesis. No hematochezia. GENITOURINARY: No urgency. No frequency. No dysuria. No hematuria. No obstructive symptoms. No discharge. No pain. No significant abnormal bleeding. MUSCULOSKELETAL: Extreme weakness. No musculoskeletal pain; no joint swelling. NEUROLOGICAL: No headache. No neck pain. No syncope. No seizures. No dizziness. PSYCHIATRIC: Not anxious. No depression. No suicidal thoughts. No homicidal thoughts. SKIN: No rash. No lesions. No wounds. ENDOCRINE: No unexplained weight loss. No weight gain. HEMATOLOGIC/LYMPHATIC: No anemia. No purpura. No petechiae. No prolonged or excessive bleeding. No palpable lymph nodes. PHYSICAL EXAMINATION: VITAL SIGNS: Temperature 98, pulse 85, respiratory rate 20, blood pressure 148/62, pulse ox 97%. HEENT: Head normocephalic, atraumatic. Eyes: Extraocular muscles are intact. Pupils are equal, round and reactive to light and accommodation. Ears: No lesions. Nose appeared normal. Throat: No exudate or erythema. NECK: Supple. No JVD, no carotid bruit. No lymphadenopathy or thyromegaly. LUNGS: Decreased breath sounds but clear to auscultation. Percussion note normal. Chest symmetrical. HEART: S1, S2, no S3. No murmurs. No cyanosis or clubbing. No ascites. Pulses: Dorsalis pedis and posterior tibial pulses +1 to +2 bilaterally. ABDOMEN: Soft. Nontender. Bowel sounds active. No CVA tenderness. No mass felt. EXTREMITIES: No edema. Full range of motion of all extremities, equal. NEUROLOGIC: No focal deficit. Cranial nerves II through XII are grossly intact. No headache, no double vision or headache. SKIN: Not dry. Intact. Turgor - normal. LYMPHATIC: No palpable lymph nodes/no lymphedema. MUSCULOSKELETAL: Normal joints with no swelling. Muscle tone is normal. LABS: Hemoglobin 11.2, hematocrit 35, WBC 11,000, normal differential. Creatinine 0.4, BUN 22, potassium 3.4, INR 5.31, will hold Coumadin. ASSESSMENT: 1. Severe acute bronchitis with severe chronic lung disease with chronic respiratory failure, seems to be under control. 2. Obtundation with sleepiness that has resolved. The patient is on hold for Xanax and narcotics. 3. The patient has atrial fibrillation with regular ventricular response. 4. Blood pressure is under control. 5. Diabetes - she is on sliding scale with coverage. PLAN: 1. The patient is encouraged to eat. 2. No sign of congestive heart failure or fluid overload at the present time. 3. The patient had been given Lasix IV yesterday with good response. 4. The patient's prognosis is guarded. She is oriented to time, place and person. Condition improved. TIME SPENT: More than 30 minutes. Plan and coordination of the patient's care discussed in the presence of nurse. STEFANO
== END 2019-12-04 12:15 | disposition swing bed (61) | DRG 194 ==
LOC: MEDSURG B 09:44 → SCU 11-30 14:30
PROVIDERS: ADMIT Internal Medicine; ATTEND Internal Medicine

== ENCOUNTER 2020-01-08 14:26 | Inpatient (IN) ==
[2020-01-08] MEDS ORDERED: ATROPINE SULFATE PFS IVP PRN (14:46)
[2020-01-08] MEDS ORDERED: TYLENOL PO PRN (14:46)
[2020-01-08] MEDS ORDERED: NITROSTAT SL PRN (14:46)
[2020-01-08] MEDS ORDERED: VISTARIL INJ IM PRN (14:46)
[2020-01-08] MEDS ORDERED: DUONEB NEB PRN (15:07)
[2020-01-08 15:14] VITALS: BMI 16.7
[2020-01-08 15:15] LABS: HEMATOCRIT 31.7 % (37.0-47.0)
[2020-01-08] MEDS: SODIUM CHLORIDE 1,000 ML IV SCH (15:24)
--- NOTE | 2020-01-08 15:52 | DI ---
EXAM: Single view of the chest. History: Short of breath Comparison: Chest radiograph 11/27/2019 Findings: The heart size is normal. Sternotomy wires. Increased prominence of the left lower lung mass. Other scattered lung nodules are also seen. No pleural fluid and no pneumothorax. No acute o sseous abnormalities. Impression: Increased prominence of left lower lung mass could be malignant. Recommend chest CT
[2020-01-08] MEDS: ZOCOR PO SCH (16:35)
[2020-01-08] MEDS: SOLU-CORTEF 250 MG IVP SCH ×2 (16:35→20:29)
[2020-01-08] MEDS: ROCEPHIN 1 GM/50 ML D5W 1 GM/50 ML BAG IV SCH (16:36)
[2020-01-08] MEDS: NORCO 5-325 PO PRN (16:40)
[2020-01-08] MEDS ORDERED: COUMADIN PO SCH (17:00)
[2020-01-08] MEDS ORDERED: ZOCOR PO SCH (17:00)
[2020-01-08] MEDS: PULMICORT 1 MG/2 ML NEB SCH (17:40)
[2020-01-08] MEDS: DUONEB NEB SCH ×2 (17:42→23:15)
[2020-01-08] MEDS: ZITHROMAX 500 MG in SODIUM CHLORIDE 250 ML IV SCH (17:50)
[2020-01-08] MEDS: HUMULIN R SUBCUT PRN ×2 (17:50→21:31)
[2020-01-08] MEDS: NEURONTIN PO SCH (20:22)
[2020-01-08] MEDS: CALAN SR PO SCH (20:22)
[2020-01-08] MEDS: XANAX PO SCH (20:22)
[2020-01-08] MEDS ORDERED: PULMICORT 0.5 MG/2 ML NEB SCH (21:00)
[2020-01-08] MEDS ORDERED: CALAN SR PO SCH (21:00)
[2020-01-09] MEDS: DUONEB NEB SCH ×4 (05:00→22:46)
[2020-01-09] MEDS: PULMICORT 1 MG/2 ML NEB SCH ×2 (05:00→17:12)
[2020-01-09 05:12] LABS: HEMATOCRIT 28.8 % (37.0-47.0)
[2020-01-09] MEDS: SOLU-CORTEF 250 MG IVP SCH ×3 (05:41→21:02)
[2020-01-09] MEDS: LASIX TAB PO SCH (05:41)
[2020-01-09] MEDS: PROTONIX PO SCH (05:41)
[2020-01-09] MEDS: HUMULIN R SUBCUT PRN ×4 (06:06→21:02)
[2020-01-09] MEDS ORDERED: ASPIRIN EC PO SCH (08:00)
--- NOTE | 2020-01-09 08:05 | PCM.PROG ---
Attending Provider: ATTENDING PROVIDER: Dr. SAMUEL BELLO This patient is seen with [place], Nurse Practitioner. DATE OF SERVICE: 01/09/20 SUBJECTIVE: This 84 year old /WHITE F was hospitalized 01/08/20. The patient is resting comfortably. She was able to eat 100% of meal yesterday. The patient is looking better this morning. REVIEW OF SYSTEMS: CONSTITUTIONAL: No night sweats. No fatigue, malaise, lethargy. No fever or chills. Weakness. HEENT: Eyes: No visual changes. No eye pain. No eye discharge. ENT: No runny nose. No epistaxis. No sinus pain. No odynophagia. No congestion. RESPIRATORY: Cough, no congestion. No hemoptysis. Shortness of breath. CARDIOVASCULAR: No angina symptoms. No CHF symptoms. No atypical chest pain for CAD. No palpitations. No orthopnea.. GASTROINTESTINAL: No abdominal pain. No nausea or vomiting. No diarrhea or constipation. No hematemesis. No hematochezia. GENITOURINARY: No urgency. No frequency. No dysuria. No hematuria. No obstructive symptoms. No discharge. No pain. No significant abnormal bleeding. MUSCULOSKELETAL: No musculoskeletal pain; no joint swelling. NEUROLOGICAL: Awake, alert, oriented to time, place and person. No headache. No neck pain. No syncope. No seizures. No dizziness. PSYCHIATRIC: Not anxious. No depression. No suicidal thoughts. No homicidal thoughts. SKIN: No rash. No lesions. No wounds. ENDOCRINE: No unexplained weight loss. No weight gain. HEMATOLOGIC/LYMPHATIC: No anemia. No purpura. No petechiae. No prolonged or excessive bleeding. No palpable lymph nodes. PHYSICAL EXAMINATION: GENERAL: The patient is awake, alert and oriented, lying in bed in no distress. VITAL SIGNS: Temperature 98.3 F, Pulse 73, Respiratory Rate 18, BP 99/52, Pulse Ox 99% HEENT: Head normocephalic, atraumatic. Eyes: Extraocular muscles are intact. Pupils are equal, round and reactive to light and accommodation. Ears: No lesions. Nose appeared normal. Throat: No exudate or erythema. NECK: Supple. No JVD, no carotid bruit. No lymphadenopathy or thyromegaly. LUNGS: Bilateral coarse rhonchi. Clear to auscultation. Percussion note normal. Chest symmetrical. HEART: S1, S2, no S3. No murmurs. No cyanosis or clubbing. No ascites. Pulses: Dorsalis pedis and posterior tibial pulses +1 to +2 both sides. ABDOMEN: Soft. Non-tender. Bowel sounds active. No CVA tenderness. No mass felt. EXTREMITIES: No edema. Full range of motion of all extremities, equal. NEUROLOGIC: No focal deficit. Cranial nerves II through XII are grossly intact. No headache, no double vision or headache. SKIN: Not dry. Intact. Turgor-normal. LYMPHATIC: No palpable lymph nodes/no lymphedema. MUSCULOSKELETAL: Normal joints with no swelling. Muscle tone is normal. LAB REVIEW: 01/09/20 04:45 01/09/20 04:45 01/09/20 04:45: Sodium 133.7 L, Potassium 4.58, Chloride 101.2, Carbon Dioxide 24.3, Anion Gap 12.78, BUN 21.2 H, Creatinine 0.58 L, Estimated GFR (MDRD) 99.00, BUN/Creatinine Ratio 36.55, Glucose 233.0 H, Calcium 8.23 L, Total Bilirubin 0.17 L, AST 34.1, ALT 25.1, Alkaline Phosphatase 69.7, Total Protein 6.13 L, Albumin 3.10 L, Globulin 3.03, Albumin/Globulin Ratio 1.02 01/09/20 04:45: PT 32.2 H D, INR 3.53 01/09/20 04:45: WBC 12.52 H, RBC 3.32 L, Hgb 9.2 L, Hct 28.8 L, MCV 86.7, MCH 27.7, MCHC 31.9, RDW Coeff of [place] 14.4, Plt Count 290, Immature Gran % (Auto) 0.9, Neut % (Auto) 89.4 H, Lymph % (Auto) 5.7 L, [place] % (Auto) 3.8, Eos % (Auto) 0.0, Baso % (Auto) 0.2, Immature Gran # (Auto) 0.1, Neut # (Auto) 11.2 H, Lymph # (Auto) 0.7, [place] # (Auto) 0.5, Eos # (Auto) 0.0, Baso # (Auto) 0.0 01/08/20 23:00: Total Creatine Kinase 324.4 H, CK-MB (CK-2) 4.560 H, CK-MB (CK- 2) % 1.4000, Troponin I 0.016 01/08/20 20:32: Urine Color Yellow, Urine Clarity Cloudy, Urine pH 7.0, Ur Specific [place] 1.025, Urine Protein 2+ H, Urine Glucose (UA) 2+ H, Urine Ketones Trace H, Urine Blood 1+ H, Urine Nitrite Negative, Urine Bilirubin Negative, Urine Urobilinogen 1.0 H, Ur Leukocyte Esterase Negative, Urine Microscopic RBC 2-5, Urine Microscopic WBC 0-2, Ur Squamous Epith Cells Not present, Amorphous Sediment 1+, Urine Bacteria 3+ 01/08/20 15:07: PT 24.8 H, INR 2.67 01/08/20 15:07: Sodium 128.9 L, Potassium 4.78, Chloride 93.9 L, Carbon Dioxide 23.2, Anion Gap 16.58, BUN 20.8 H, Creatinine 0.67, Estimated GFR (MDRD) 84.00, BUN/Creatinine Ratio 31.04, Glucose 269.6 H, Calcium 8.58, Total Bilirubin 0.46, AST 43.2 H, ALT 30.4, Alkaline Phosphatase 84.0, Total Creatine Kinase 441.8 H, CK-MB (CK-2) 5.400 H*, CK-MB (CK-2) % 1.2200, Troponin I 0.024, Total Protein 6.80, Albumin 3.57, Globulin 3.23, Albumin/Globulin Ratio 1.10 01/08/20 15:07: WBC 15.01 H, RBC 3.69 L, Hgb 10.3 L, Hct 31.7 L, MCV 85.9, MCH 27.9, MCHC 32.5, RDW Coeff of [place] 14.4, Plt Count 316, Neutrophils % (Manual) 86.0 H, Band Neutrophils % 8.0 H, Lymphocytes % (Manual) 4.0 L, Monocytes % (Manual) 1.0, Hypersegmented Neuts 1.0 H, Anisocytosis Not present 01/08/20 15:05: Puncture Site R rad, O2 Saturation 93.0 L, ABG pH 7.416, ABG pCO2 32.4 L, ABG pO2 64.0 L, ABG HCO3 20.8 L, ABG Total CO2 22, ABG Base Excess -4 L, Tonio Test +, FiO2 % 21.0 01/08/20 14:40: Influ A Molecular Assay Negative by naat, Influ B Molecular Assay Negative by naat ASSESSMENT: Please see below. 1. Acute bronchitis 2. Influenza Syndrome PLAN: 1. Chest CT with and without contrast 2. Hold Coumadin today 3. INR 4. Decrease IV fluids to 50cc hourly. 5. Continue IV antibiotics, steroids and NEBS Plan and coordination of the patient's care discussed in the presence of Partition Making Machine Operator and nurse. SCRIBED BY: ISH MONROY Electronic Parts Designer scribed while in presence of service performed by Dr. Bello/[place] APRN on 01/09/20 ([id number])
[2020-01-09] MEDS: SODIUM CHLORIDE 1,000 ML IV SCH ×2 (08:08→09:51)
[2020-01-09] MEDS ORDERED: MEGESTROL 400 MG PO SCH (09:00)
[2020-01-09] MEDS ORDERED: MEGACE PO SCH (09:00)
[2020-01-09] MEDS: ROCEPHIN 1 GM/50 ML D5W 1 GM/50 ML BAG IV SCH (10:16)
[2020-01-09] MEDS: K-DUR PO SCH (10:16)
[2020-01-09] MEDS: LANOXIN PO SCH (10:17)
[2020-01-09] MEDS: CALAN SR PO SCH ×2 (10:17→21:02)
[2020-01-09] MEDS: COZAAR PO SCH (10:18)
[2020-01-09] MEDS: ASPIRIN CHEWABLE PO SCH (10:18)
[2020-01-09] MEDS: LEXAPRO PO SCH (10:18)
[2020-01-09] MEDS: LEVEMIR SUBCUT SCH (10:20)
--- NOTE | 2020-01-09 11:02 | CT ---
EXAM: CT of the chest with and without contrast History: Short of breath Comparison: Chest CT 03/14/2019 Technique: Multiplanar CT images through the thorax were obtained with and without the administratio n of IV contrast Findings: Heart size is normal. Coronary calcifications and valvular calcifications of the heart. No pericardial effusion. Sternotomy wires are seen. No thoracic aortic aneurysm. No axillary lymph adenopathy. Calcified granulomas are again seen. There are no pathologically enlarged thoracic lymp h nodes. Diffuse bronchial wall thickening is again seen. Bilateral micronodules with tree in bud o pacities. 2.8 cm spiculated partially cavitary left lower lobe lung nodule increased in size compare d to the prior study. Stable 1 cm left upper lobe lung nodule. There are multiple new bilateral mary g nodules with the largest on the right seen within the right lower lobe measuring 1.1 cm and the lar gest new nodule in the left lung seen within the right lower lobe measuring 1.2 cm. Within the visualized upper abdomen, no acute findings. No acute osseous abnormalities. Impression: 1. Increasing size of left lower lobe spiculated nodule with central area of cavitation is suspiciou s for malignancy. Recommend biopsy. 2. New bilateral lung nodules could be infectious/inflammatory or metastatic. 3. Bronchial wall thickening and bilateral tree in bud opacities could be due to endobronchial sprea d of tumor versus infection. 4. Coronary artery disease
[2020-01-09] MEDS: ZITHROMAX 500 MG in SODIUM CHLORIDE 250 ML IV SCH (11:55)
[2020-01-09] MEDS: NORCO 5-325 PO PRN (14:13)
--- NOTE | 2020-01-09 14:45 | HP ---
DATE OF SERVICE: 01/08/2020 REASON FOR HOSPITALIZATION/HISTORY OF PRESENT ILLNESS: 84 year old female complaining of fatigue, sweating, cough, diarrhea and chills. Denies any fever. She has been unable to eat. No signs or symptoms of CHF/CAD. PAST MEDICAL HISTORY: COPD Hypertension Diabetes Mellitus Chronic bronchitis Anemia Atrial fibrillation Smoking Pulmonary nodule PAD CAD/CABG's PAST SURGICAL HISTORY: CABGS's Hysterectomy Colonoscopy 05-21 Dr. Maloney REVIEW OF SYSTEMS: CONSTITUTIONAL: No fever, Fatigue. HEENT: Sinus drainage, no sore throat. RESPIRATORY: Cough, no congestion. CARDIOVASCULAR: No atypical chest pain for coronary artery disease. No angina, CHF symptoms, palpitations. Shortness of breath with minimal exertion. GASTROINTESTINAL: No melena or abdominal pain. No GERD. Diarrhea. GENITOURINARY: No hematuria, no prostatism, no polyuria. STORE SHOPPER: No blackout, no dizziness, no headache, no double vision. GAIT: Unsteady. MUSCULOSKELETAL: Osteoarthritis pain, no joint swelling. ENDOCRINE: No weight loss, no weight gain. SKIN: Not dry, no rash. PSYCHIATRIC: Not anxious, no depression, no suicidal thoughts, no homicidal thoughts. SOCIAL HISTORY: Marital Status: . Alcohol Usage: No. Tobacco Usage: Yes. FAMILY HISTORY: Father Mother Sister 4 Brother 4 MEDICATIONS: Aspirin 81mg PO daily [place] 5-325mg BID DUO NEBS QID PRN Xanax 0.25mg HS Pulmicort neb BID Lanoxin 125mg PO daily Lexapro 10mg PO daily Lasix 20mg daily Neurontin 300mg one HS Levemir 15 units daily Cozaar 25mg PO daily Megace 400mg PO daily Protonix 40mg PO daily K-Dur 20mg PO daily Zocor 40mg PO daily Calan SR 180mg BID Coumadin 4mg PO daily Prednisone 5mg every other day Lexapro 10mg PO daily ALLERGIES: Tricor PHYSICAL EXAMINATION: V/S: Pulse 100, blood pressure 96/44, temperature 98, oxygen saturation 95%. Height 5'3 GENERAL APPEARANCE: Oriented times three. HEENT: Normal. NECK: No JVP, no bruits. RESPIRATORY: Bilateral expiratory wheezing. CARDIOVASCULAR: S1, S2, no S3, no murmur. No cyanosis, clubbing. No ascites. GI/ABDOMEN: No tenderness. Bowel sounds are active. EXTREMITIES: edema, pulses +1, equal. STORE SHOPPER: Deep tendon reflexes, sensory, motor and gait all normal. RECTAL: 7-14 Dr. Maloney had appointment and patient cancelled./PELVIC/PROSTATE: . ASSESSMENT: 1. Acute bronchitis 2. Influenza Syndrome 3. History of acute pneumonitis 4. Shortness of breath 5. Dehydration 6. Acute on Chronic bronchitis/ allergic bronchitis 7. COPD exacerbation 8. History of fungal infection left ankle 9. Left lower extremity edema/tenderness 10.History of UTI's 11.Dysuria 12.MARYANA 13.Right knee pain Osteoarthritis 14.Diabetes Mellitus type 2, A1c (8.1) 10-19 15.Severe COPD steroid dependant 16.Smoker 17.Anemia 18.Fatigue 19.Muscle spasms 20.Atrial fibrillation 21.PAD 22.Cancer 23.CABG's 24.Non-compliant of lifestyle and medications. PLAN: 1. Routine telemetry orders 2. CBC, CMP now and daily-INR daily 3. ABG on room air now 4. Rocephin 1 gram IV daily times 7 days 5. Zithromax 500mg IV daily times three days 6. Solu-Cortef 125mg IV Q 8 hours and now 7. Normal saline at 75cc and hour IV 8. O2 at 1-2 liters nasal canula PRN 9. DUO NEBS Q 6 hours scheduled 10.Pulmicort 1.0mg BID scheduled 11.Accu-checks with sliding scale coverage. 12.Continue home medications 13.Regular diet 14.U/A with culture and sensitivity 15. Check for influenza. Don't intubate, CPR only. TIME SPENT: More than 70 minutes. MTDD
[2020-01-09] MEDS: ZOCOR PO SCH (16:43)
[2020-01-09] MEDS: NEURONTIN PO SCH (21:02)
[2020-01-09] MEDS: XANAX PO SCH (21:02)
[2020-01-10] MEDS: SOLU-CORTEF 250 MG IVP SCH ×3 (04:43→21:18)
[2020-01-10] MEDS: PULMICORT 1 MG/2 ML NEB SCH ×2 (04:50→17:02)
[2020-01-10] MEDS: DUONEB NEB SCH ×4 (04:50→23:35)
[2020-01-10 05:30] LABS: HEMATOCRIT 25.3 % (37.0-47.0)
[2020-01-10] MEDS: LASIX TAB PO SCH (05:30)
[2020-01-10] MEDS: PROTONIX PO SCH (05:30)
[2020-01-10] MEDS: HUMULIN R SUBCUT PRN ×4 (06:11→21:05)
[2020-01-10] MEDS: SODIUM CHLORIDE 1,000 ML IV SCH ×2 (06:14→06:28)
--- NOTE | 2020-01-10 08:29 | RS.PTINEVL ---
Subjective - Patient information Date of Evaluation: 01/09/20 Date of Arrival on Unit: 01/08/20 Admitted From:: Home Diagnosis: acute bronchitis, influenza syndrome Usual Living Arrangement: With Spouse Living Arrangement Comments: lives with elderly spouse and raises 12 y/o granddtr. Home Environment: House, Stairs (few), Rail Medical History: Hypertension, COPD, Diabetes Medical History Comments:: CAD, PAD, anemia LATEX ALLERGY?: No Surgical History: Hysterectomy, CABG Medications: see chart Subjective Information/ Patient Comments:: pt states that she was doing better at home and then all of a sudden got sick again. - Level of function Prior to this admission, the patient could do the following:: Independent Selfcare, Independent ADL's, Drive Current Level of Function: Partially Dependent Current Equipment Used at Home: rollator Interventions - Objective Patient Orientation: Person, Place, Time, Situation Current Interventions: IV's, Oxygen (2 liters) Range of Motion - ROM Right Upper Extremity AROM: WFL's Left Upper Extremity AROM: WFL's Right Lower Extremity AROM: WFL's Left Lower Extremity AROM: WFL's Muscle Strength - Muscle Strength Right Upper Extremity Strength: Mild Weakness (grossly 4-/5) Left Upper Extremity Strength: Mild Weakness (grossly 4-/5) Right Lower Extremity Strength: Mild Weakness (hip flex 3+/5, knee flex/ext 4- /5, ankle DF/PF 4-/5) Left Lower Extremity Strength: Mild Weakness (hip flex 3+/5, knee flex/ext 4-/5, ankle DF/PF 4-/5) Sensation - Sensation Right Upper Extremity Sensation: Intact/Normal Left Upper Extremity Sensation: Intact/Normal Right Lower Extremity Sensation: Intact/Normal Left Lower Extremity Sensation: Intact/Normal Palpation Palpation Findings: None/Normal Balance - Sitting Balance and Reactions Static Sitting Balance: Fair Dynamic Sitting Balance: Fair - Standing Balance and Reactions Static Standing Balance: Poor Dynamic Standing Balance: Poor Standing Equilibrium Reactions: Delayed Left, Delayed Right Standing Protective Reactions: Delayed Left, Delayed Right Functional Mobility - Bed Mobility Rolling R/L: Supervision Supine to Sit: CGA, Min Assist Sit to Supine: CGA, Min Assist - Transfers Sit to Stand: Min Assist, 1 person assist Stand to Sit: Min Assist, 1 person assist - Safety Awareness Safety Awareness: Fair JENNI INDEX SCORE: n/a Ambulation - Ambulation Assistive Device Used: Rolling Walker Orthotic/Prosthetic Device: No Distance: 60ft Assistance needed with Ambulation: Min Assist, 1 person assist, 2 person assist Quality of Ambulation: pt amb with min x 1 +1 for IV and O2. Gait Deviations: Forward posture, Short stride Ambulation Comments: pt c/o SOA and dizziness with amb. Factors Affecting Ambulation: Decreased Balance, Breathing/O2 Saturation, Weakness, Decreased Coordination, Decreased Safety, Limited Endurance Treatment time - Time with patient Length of Evaluation: 21 Total treatment time: 28 Patient Education - Education Patient Education: Activity Modification, Education of Plan of Care Teaching Recipient: Patient Teaching Methods: Discussion Comments: discussion with patient regarding POC as well as instruction on PLB. Assessment - Assessment Problem List:: Decreased level of function, Requires training/education, Decreased safety/Risk of falls, Weakness Rehab Potential: Fair Further Therapy Indicated?: Yes Candidate for Swing Bed for Therapy Services?: feel pt may not be a candidate for swing bed due to decreased endurance may not be able to tolerate PT BID. Evaluation Complexity: HISTORY: Medium, EXAM OF BODY SYSTEMS: Medium, CLINICAL PRESENTATION: Medium, CLINICAL DECISION MAKING: Medium Patient's Goal(s): get stronger to go home Short Term Goals GOAL #1: Patient Independent with bed mobility Goal to be met by: 01/12/20 GOAL #2: Transfer sup to/from sit SBA Goal to be met by: 01/12/20 GOAL #3: Sit to/from stand CGA Goal to be met by: 01/12/20 GOAL #4: pt amb with rollator rwx 75ft with CGA with O2 no LOB Goal to be met by: 01/12/20 Progress towards Goal:: Met GOAL #5: Improve BLE strength 4- to 4/5 Goal to be met by: 01/12/20 Clinical Data Management Manager Goals GOAL #1: Transfer sup to/from I, sit to/from stand SBA Goal to be met by: 01/15/20 GOAL #2: Pt. amb. with rollator SBA fubctional household distances,no LOB Goal to be met by: 01/15/20 GOAL #3: pt ascend/descend 2-3 steps with HR Goal to be met by: 01/15/20 Plan Plan of Care: Therapeutic EX, Therapeutic Activity Other:: gait training Frequency of Treatment: 1-2 X day, as tolerated Duration of Treatment: 1 Week Anticipated Discharge Destination: Home Treatment Diagnosis (ICD 10 Codes): R 26.81 balance impaired. R 26.2 difficulty walking. M 62.81 muscle weakness Has the Physician been added for Co-signature?: Yes
[2020-01-10] MEDS: K-DUR PO SCH (08:47)
[2020-01-10] MEDS: CALAN SR PO SCH ×2 (08:47→20:26)
[2020-01-10] MEDS: LEXAPRO PO SCH (08:47)
[2020-01-10] MEDS: COZAAR PO SCH (08:48)
[2020-01-10] MEDS: ASPIRIN CHEWABLE PO SCH (08:48)
[2020-01-10] MEDS: MEGACE PO SCH (08:50)
[2020-01-10] MEDS: LANOXIN PO SCH (08:51)
[2020-01-10] MEDS: LEVEMIR SUBCUT SCH (08:52)
[2020-01-10] MEDS: ROCEPHIN 1 GM/50 ML D5W 1 GM/50 ML BAG IV SCH (08:58)
[2020-01-10] MEDS: NORCO 5-325 PO PRN (09:29)
[2020-01-10] MEDS ORDERED: MEPHYTON PO STA (09:51)
[2020-01-10] MEDS: ZITHROMAX 500 MG in SODIUM CHLORIDE 250 ML IV SCH (10:19)
--- NOTE | 2020-01-10 10:46 | PN ---
DATE OF SERVICE: 01/09/2020 SUBJECTIVE: Today her vital signs are stable blood pressure 121/71, pulse rate 75, respiratory rate 18, temperature 98, O2 saturation 97%. She is currently sitting up the chair. She is eating breakfast. The only complaint that she has this morning is that she says her bottom itches. She does feel that the rash is better. She didn't itch all night long and she just started itching this morning. I am not able to evaluate the rash because she is sitting up to the chair. I did speak with the nurse and the nurse is going to take a look at the rash today and to see if it looks any better. The nurses have been applying calmoseptine to the rash three times a day. Again we will take a look at that rash today and see if it has improved. As far as diagnostics there is not any new diagnostics to report. She did report to me that she walked 25 feet yesterday with physical therapy. She has been using her walker. She did walk from the bed to the door. She feels that she is doing well in therapy. She denies any chest pain or shortness of breath. HEART: Regular rate and rhythm LUNGS: Clear. She does have chronic lower extremity swelling approximately +1 No other complaints are voices today. STEFANO
--- NOTE | 2020-01-10 14:36 | PN ---
DATE OF SERVICE: 01/10/2020 SUBJECTIVE: 84 year old white female hospitalized with acute bronchitis and influenza type of symptoms. The patient's condition has improved. She is feeling a lot better. She was dehydrated and had not eaten for several days. REVIEW OF SYSTEMS: CONSTITUTIONAL: No night sweats. Still fatigue. No fever or chills. HEENT: Eyes: No visual changes. No eye pain. No eye discharge. ENT: No runny nose. No epistaxis. No sinus pain. No sore throat. No odynophagia. No congestion. RESPIRATORY: Mild cough with congestion. No hemoptysis. No shortness of breath. CARDIOVASCULAR: No angina symptoms. No CHF symptoms. No atypical chest pain for CAD. No palpitations. No PND. No orthopnea. GASTROINTESTINAL: No abdominal pain. No nausea or vomiting. No diarrhea or constipation. No hematemesis. No hematochezia. Appetite improving. GENITOURINARY: No urgency. No frequency. No dysuria. No hematuria. No obstructive symptoms. No discharge. No pain. No significant abnormal bleeding. MUSCULOSKELETAL: No musculoskeletal pain; no joint swelling. NEUROLOGICAL: No headache. No neck pain. No syncope. No seizures. No dizziness. PSYCHIATRIC: Not anxious. No depression. No suicidal thoughts. No homicidal thoughts. SKIN: No rash. No lesions. No wounds. ENDOCRINE: No unexplained weight loss. No weight gain. HEMATOLOGIC/LYMPHATIC: No anemia. No purpura. No petechiae. No prolonged or excessive bleeding. No palpable lymph nodes. PHYSICAL EXAMINATION: VITAL SIGNS: Temperature 98.1, pulse 85, respiratory rate 18, blood pressure 109/46 and pulse ox 98%. HEENT: Head normocephalic, atraumatic. Eyes: Extraocular muscles are intact. Pupils are equal, round and reactive to light and accommodation. Ears: No lesions. Nose appeared normal. Throat: No exudate or erythema. NECK: Supple. No JVD, no carotid bruit. No lymphadenopathy or thyromegaly. LUNGS: Decreased breath sounds with mild wheeze. Clear to auscultation. Percussion note normal. Chest symmetrical. HEART: S1, S2, no S3. No murmurs. No cyanosis or clubbing. No ascites. Pulses: Dorsalis pedis and posterior tibial pulses +1 to +2 bilaterally. ABDOMEN: Soft. Nontender. Bowel sounds active. No CVA tenderness. No mass felt. EXTREMITIES: No edema. Full range of motion of all extremities, equal. NEUROLOGIC: No focal deficit. Cranial nerves II through XII are grossly intact. No headache, no double vision or headache. SKIN: Not dry. Intact. Turgor - normal. LYMPHATIC: No palpable lymph nodes/no lymphedema. MUSCULOSKELETAL: Normal joints with no swelling. Muscle tone is normal. LABS: Hgb 8.0, hct 25, WBC 14,000 normal differential, creatinine 0.6, BUN 27, potassium 4.4, INR 7.4, PT 65. ASSESSMENT: 1. Acute bronchitis with severe chronic lung disease, resolved. 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 Coronary bypass surgery 3. Severe chronic lung disease with history of smoking. 4. Anemia with no evidence of active GI bleed 5. Coagulopathy with INR of 7.4 PLAN: 1. Give PO 2.5 Vitamin K 2. Discontinue Aspirin 3. Type and screen and hold two units of packed red cells. If it is as low as 8 we will transfuse 4. Continue antibiotics, steroids and NEBS 5. The patient's sister this morning. She is feeling very sad. I talked to the daughter about the patient's abnormal CT scan and she wants me to hold off telling her about possibility of cancer until tomorrow. TIME SPENT: More than 30 minutes. Plan and coordination of the patient's care discussed in the presence of nurse. STEFANO
[2020-01-10] MEDS: ZOCOR PO SCH (16:55)
[2020-01-10] MEDS: XANAX PO SCH (20:26)
[2020-01-10] MEDS: NEURONTIN PO SCH (20:26)
[2020-01-11] MEDS: PULMICORT 1 MG/2 ML NEB SCH ×2 (04:45→17:16)
[2020-01-11] MEDS: DUONEB NEB SCH ×4 (04:45→22:52)
[2020-01-11 04:50] LABS: HEMATOCRIT 23.6 % (37.0-47.0)
[2020-01-11] MEDS: LASIX TAB PO SCH (05:37)
[2020-01-11] MEDS: PROTONIX PO SCH (05:37)
[2020-01-11] MEDS: SOLU-CORTEF 250 MG IVP SCH ×3 (05:37→20:36)
[2020-01-11] MEDS: HUMULIN R SUBCUT PRN ×4 (05:37→20:52)
--- NOTE | 2020-01-11 07:41 | PN ---
DATE OF SERVICE: 01/09/20 SUBJECTIVE: 84-year-old white female hospitalized with bronchitis type of symptoms. Condition improving. The patient's CT scan is abnormal. Will discuss with her tomorrow along with the daughter. Otherwise conditions are stable. The patient ws seen and examined with the nurse practitioner. TIME SPENT: More than 30 minutes. Plan and coordination of the patient's care discussed in the presence of nurse. STEFANO
[2020-01-11] MEDS: ROCEPHIN 1 GM/50 ML D5W 1 GM/50 ML BAG IV SCH (08:24)
--- NOTE | 2020-01-11 08:25 | PCM.PROG ---
Attending Provider: ATTENDING PROVIDER: Dr. SAMUEL BELLO This patient is seen with [place], Nurse Practitioner. DATE OF SERVICE: 01/11/20 SUBJECTIVE: This 84 year old /WHITE F was hospitalized 01/08/20. The patient is resting comfortably. The patient does not appear to be short of breath. The patient stated that she slept most of the night but she is still feeling weak. The patient's HGB has dropped to 7.5 and we will transfuse two units today. REVIEW OF SYSTEMS: CONSTITUTIONAL: No night sweats. Fatigue. No fever or chills. Weakness. HEENT: Eyes: No visual changes. No eye pain. No eye discharge. ENT: No runny nose. No epistaxis. No sinus pain. No odynophagia. No congestion. RESPIRATORY: No cough, no congestion. No hemoptysis. Shortness of breath. CARDIOVASCULAR: No angina symptoms. No CHF symptoms. No atypical chest pain for CAD. No palpitations. No orthopnea.. GASTROINTESTINAL: No abdominal pain. No nausea or vomiting. No diarrhea or constipation. No hematemesis. No hematochezia. GENITOURINARY: No urgency. No frequency. No dysuria. No hematuria. No obstructive symptoms. No discharge. No pain. No significant abnormal bleeding. MUSCULOSKELETAL: No musculoskeletal pain; no joint swelling. NEUROLOGICAL: Awake, alert, oriented to time, place and person. No headache. No neck pain. No syncope. No seizures. No dizziness. PSYCHIATRIC: Not anxious. No depression. No suicidal thoughts. No homicidal thoughts. SKIN: No rash. No lesions. No wounds. ENDOCRINE: No unexplained weight loss. No weight gain. HEMATOLOGIC/LYMPHATIC: No anemia. No purpura. No petechiae. No prolonged or excessive bleeding. No palpable lymph nodes. PHYSICAL EXAMINATION: GENERAL: The patient is awake, alert and oriented, lying in bed in no distress. VITAL SIGNS: Temperature 98.3 F, Pulse 86, Respiratory Rate 18, BP 130/58, Pulse Ox 100% HEENT: Head normocephalic, atraumatic. Eyes: Extraocular muscles are intact. Pupils are equal, round and reactive to light and accommodation. Ears: No lesions. Nose appeared normal. Throat: No exudate or erythema. NECK: Supple. No JVD, no carotid bruit. No lymphadenopathy or thyromegaly. LUNGS: Bilateral expiratory wheezing. Clear to auscultation. Percussion note normal. Chest symmetrical. HEART: S1, S2, no S3. No murmurs. No cyanosis or clubbing. No ascites. Pulses: Dorsalis pedis and posterior tibial pulses +1 to +2 both sides. ABDOMEN: Soft. Non-tender. Bowel sounds active. No CVA tenderness. No mass felt. EXTREMITIES: No edema. Full range of motion of all extremities, equal. NEUROLOGIC: No focal deficit. Cranial nerves II through XII are grossly intact. No headache, no double vision or headache. SKIN: Not dry. Intact. Turgor-normal. LYMPHATIC: No palpable lymph nodes/no lymphedema. MUSCULOSKELETAL: Normal joints with no swelling. Muscle tone is normal. LAB REVIEW: 01/11/20 04:35 01/11/20 04:35 01/11/20 04:35: Sodium 140.0, Potassium 4.21, Chloride 106.2, Carbon Dioxide 26.8, Anion Gap 11.21, BUN 26.7 H, Creatinine 0.66, Estimated GFR (MDRD) 85.00, BUN/Creatinine Ratio 40.45, Glucose 258.2 H D, Calcium 8.16 L, Total Bilirubin < 0.10 L, AST 31.6, ALT 26.3, Alkaline Phosphatase 63.5, Total Protein 5.79 L, Albumin 2.90 L, Globulin 2.89, Albumin/Globulin Ratio 1.00 01/11/20 04:35: PT 23.4 H D, INR 2.52 D 01/11/20 04:35: WBC 11.48 H, RBC 2.69 L, Hgb 7.5 L, Hct 23.6 L, MCV 87.7, MCH 27.9, MCHC 31.8, RDW Coeff of Leland 14.8, Plt Count 269, Neutrophils % (Manual) 78.0 H, Band Neutrophils % 12.0 H, Lymphocytes % (Manual) 4.0 L, Monocytes % (Manual) 4.0, Eosinophils % (Manual) 0.0, Basophils % (Manual) 0.0, Metamyelocytes % 2.0, Anisocytosis Not present 01/10/20 10:23: Blood Type A POSITIVE, Antibody Screen Negative ASSESSMENT: Please see below. 1. Symptomatic anemia 2. Acute bronchitis 3. Severe COPD 4. Smoking with counseling for smoking done 5. Coagulopathy, Ok now after vitamin yesterday. 6. No active GI bleed 7. Hyperglycemia. symptom anemia PLAN: 1. Two units of packed red cells 2. Hold Coumadin 3. Accu-checks with sliding scale 4. Continue IV Rocephin, IV steroids and NEBS Plan and coordination of the patient's care discussed in the presence of Product Assurance Engineer and nurse. SCRIBED BY: Geoffrey GUADALUPE scribed while in presence of service performed by Dr. Bello/[place] Brooks APRN on 01/11/20 ([id number])
[2020-01-11] MEDS: K-DUR PO SCH (08:30)
[2020-01-11] MEDS: COZAAR PO SCH (08:32)
[2020-01-11] MEDS: MEGACE PO SCH (08:33)
[2020-01-11] MEDS: LANOXIN PO SCH (08:34)
[2020-01-11] MEDS: CALAN SR PO SCH ×2 (08:34→20:36)
[2020-01-11] MEDS: LEXAPRO PO SCH (08:35)
[2020-01-11] MEDS: LEVEMIR SUBCUT SCH (08:36)
[2020-01-11] MEDS: NORCO 5-325 PO PRN (08:39)
[2020-01-11] MEDS: ZOCOR PO SCH (17:07)
[2020-01-11 17:26] LABS: HEMATOCRIT 33.8 % (37.0-47.0)
[2020-01-11] MEDS: XANAX PO SCH (20:36)
[2020-01-11] MEDS: NEURONTIN PO SCH (20:36)
[2020-01-12] MEDS: DUONEB NEB SCH ×4 (04:33→22:33)
[2020-01-12] MEDS: PULMICORT 1 MG/2 ML NEB SCH ×2 (04:33→17:10)
[2020-01-12] MEDS: SOLU-CORTEF 250 MG IVP SCH (04:34)
[2020-01-12 04:47] LABS: HEMATOCRIT 31.7 % (37.0-47.0)
[2020-01-12] MEDS: NORCO 5-325 PO PRN (04:58)
[2020-01-12] MEDS: LASIX TAB PO SCH (05:50)
[2020-01-12] MEDS: PROTONIX PO SCH (05:50)
[2020-01-12] MEDS: HUMULIN R SUBCUT PRN ×3 (05:51→21:13)
[2020-01-12] MEDS ORDERED: XANAX PO ONE (06:30)
--- NOTE | 2020-01-12 08:52 | PCM.PROG ---
Attending Provider: ATTENDING PROVIDER: Dr. SAMUEL BELLO This patient is seen with Scarlett Brooks, Nurse Practitioner. DATE OF SERVICE: 01/12/20 SUBJECTIVE: This 84 year old /WHITE F was hospitalized 01/08/20. The patient is resting comfortably in bed. She reports that she is feeling some better. She has been up and about. She has more energy and has been walking. Her appetite has returned. REVIEW OF SYSTEMS: CONSTITUTIONAL: No night sweats. Fatigue, improving. No fever or chills. Weakness. HEENT: Eyes: No visual changes. No eye pain. No eye discharge. ENT: No runny nose. No epistaxis. No sinus pain. No odynophagia. No congestion. RESPIRATORY: No cough, no congestion. No hemoptysis. Shortness of breath, improving. CARDIOVASCULAR: No angina symptoms. No CHF symptoms. No atypical chest pain for CAD. No palpitations. No orthopnea.. GASTROINTESTINAL: No abdominal pain. No nausea or vomiting. No diarrhea or constipation. No hematemesis. No hematochezia. GENITOURINARY: No urgency. No frequency. No dysuria. No hematuria. No obstructive symptoms. No discharge. No pain. No significant abnormal bleeding. MUSCULOSKELETAL: No musculoskeletal pain; no joint swelling. NEUROLOGICAL: Awake, alert, oriented to time, place and person. No headache. No neck pain. No syncope. No seizures. No dizziness. PSYCHIATRIC: Not anxious. No depression. No suicidal thoughts. No homicidal thoughts. SKIN: No rash. No lesions. No wounds. ENDOCRINE: No unexplained weight loss. No weight gain. HEMATOLOGIC/LYMPHATIC: No anemia. No purpura. No petechiae. No prolonged or excessive bleeding. No palpable lymph nodes. PHYSICAL EXAMINATION: GENERAL: The patient is awake, alert and oriented, lying in bed in no distress. VITAL SIGNS: Temperature 98.4 F, Pulse 88, Respiratory Rate 20, BP 136/64, Pulse Ox 100% HEENT: Head normocephalic, atraumatic. Eyes: Extraocular muscles are intact. Pupils are equal, round and reactive to light and accommodation. Ears: No lesions. Nose appeared normal. Throat: No exudate or erythema. NECK: Supple. No JVD, no carotid bruit. No lymphadenopathy or thyromegaly. LUNGS: Course rhonchi inspiratory. Clear to auscultation. Percussion note normal. Chest symmetrical. HEART: S1, S2, no S3. No murmurs. No cyanosis or clubbing. No ascites. Pulses: Dorsalis pedis and posterior tibial pulses +1 to +2 both sides. ABDOMEN: Soft. Non-tender. Bowel sounds active. No CVA tenderness. No mass felt. EXTREMITIES: No edema. Full range of motion of all extremities, equal. NEUROLOGIC: No focal deficit. Cranial nerves II through XII are grossly intact. No headache, no double vision or headache. SKIN: Not dry. Intact. Turgor-normal. LYMPHATIC: No palpable lymph nodes/no lymphedema. MUSCULOSKELETAL: Normal joints with no swelling. Muscle tone is normal. LAB REVIEW: 01/12/20 04:20 01/12/20 04:20 01/12/20 04:20: Sodium 140.4, Potassium 3.98, Chloride 104.9, Carbon Dioxide 31.8 H, Anion Gap 7.68, BUN 22.7 H, Creatinine 0.55 L, Estimated GFR (MDRD) 105.00, BUN/Creatinine Ratio 41.27, Glucose 201.9 H D, Calcium 8.19 L, Total Bilirubin 0.25, AST 29.1, ALT 27.3, Alkaline Phosphatase 64.2, Total Protein 5.74 L, Albumin 2.90 L, Globulin 2.84, Albumin/Globulin Ratio 1.02 01/12/20 04:20: PT 14.1 H D, INR 1.47 01/12/20 04:20: WBC 9.35, RBC 3.60 L, Hgb 10.4 L, Hct 31.7 L, MCV 88.1, MCH 28.9, MCHC 32.8, RDW Coeff of Leland 14.2, Plt Count 253, Immature Gran % (Auto) 4.2, Neut % (Auto) 83.3 H, Lymph % (Auto) 7.7 L, Walton % (Auto) 4.5, Eos % (Auto) 0.0, Baso % (Auto) 0.3, Immature Gran # (Auto) 0.4, Neut # (Auto) 7.8 H, Lymph # (Auto) 0.7, Walton # (Auto) 0.4, Eos # (Auto) 0.0, Baso # (Auto) 0.0 01/11/20 17:16: Hgb 11.0 L D, Hct 33.8 L D 01/10/20 10:23: Blood Type A POSITIVE, Antibody Screen Negative, Crossmatch (AHG) See Detail ASSESSMENT: Please see below. 1. Acute Bronchitis 2. Coagulopathy 3. Acute bronchitis 4. Severe COPD 5. Smoking with counseling for smoking done 6. No active GI bleed 7. Hyperglycemia PLAN: 1. Restart Coumadin 2. Continue Rocephin 3. Prednisone 10mg daily 4. Discontinue telemetry Plan and coordination of the patient's care discussed in the presence of Early Intervention School Psychologist and nurse. SCRIBED BY: Geoffrey GUADALUPE scribed while in presence of service performed by Dr. Bello/Scarlett Brooks APRN on 01/12/20 ([id number])
[2020-01-12] MEDS: COZAAR PO SCH (09:19)
[2020-01-12] MEDS: ROCEPHIN 1 GM/50 ML D5W 1 GM/50 ML BAG IV SCH (09:19)
[2020-01-12] MEDS: MEGACE PO SCH (09:19)
[2020-01-12] MEDS: LEVEMIR SUBCUT SCH (09:19)
[2020-01-12] MEDS: K-DUR PO SCH (09:20)
[2020-01-12] MEDS: LANOXIN PO SCH (09:20)
[2020-01-12] MEDS: CALAN SR PO SCH ×2 (09:21→21:13)
[2020-01-12] MEDS: LEXAPRO PO SCH (09:21)
[2020-01-12] MEDS: ZOCOR PO SCH (18:14)
[2020-01-12] MEDS: COUMADIN PO SCH (18:15)
[2020-01-12] MEDS: XANAX PO SCH (21:13)
[2020-01-12] MEDS: NEURONTIN PO SCH (21:13)
[2020-01-13 04:33] LABS: HEMATOCRIT 34.5 % (37.0-47.0)
[2020-01-13] MEDS: DUONEB NEB SCH ×4 (04:52→22:19)
[2020-01-13] MEDS: PULMICORT 1 MG/2 ML NEB SCH ×2 (04:52→17:32)
[2020-01-13] MEDS: LASIX TAB PO SCH (05:41)
[2020-01-13] MEDS: PROTONIX PO SCH (05:41)
[2020-01-13] MEDS: ROCEPHIN 1 GM/50 ML D5W 1 GM/50 ML BAG IV SCH (09:05)
[2020-01-13] MEDS: MEGACE PO SCH (09:05)
[2020-01-13] MEDS: K-DUR PO SCH (09:06)
[2020-01-13] MEDS: CALAN SR PO SCH ×2 (09:06→20:26)
[2020-01-13] MEDS: COZAAR PO SCH (09:06)
[2020-01-13] MEDS: PREDNISONE PO SCH (09:06)
[2020-01-13] MEDS: LEXAPRO PO SCH (09:06)
[2020-01-13] MEDS: LANOXIN PO SCH (09:06)
[2020-01-13] MEDS: LEVEMIR SUBCUT SCH (09:07)
[2020-01-13] MEDS: NORCO 5-325 PO PRN (15:31)
[2020-01-13] MEDS: ZOCOR PO SCH (17:04)
[2020-01-13] MEDS: COUMADIN PO SCH (17:04)
[2020-01-13] MEDS: HUMULIN R SUBCUT PRN ×2 (17:51→20:45)
[2020-01-13] MEDS: XANAX PO SCH (20:26)
[2020-01-13] MEDS: NEURONTIN PO SCH (20:26)
[2020-01-14 04:25] LABS: HEMATOCRIT 36.4 % (37.0-47.0)
[2020-01-14] MEDS: PULMICORT 1 MG/2 ML NEB SCH ×2 (04:39→17:06)
[2020-01-14] MEDS: DUONEB NEB SCH ×4 (04:39→22:33)
[2020-01-14] MEDS: PROTONIX PO SCH (06:19)
[2020-01-14] MEDS: LASIX TAB PO SCH (06:19)
[2020-01-14] MEDS: MEGACE PO SCH (08:31)
[2020-01-14] MEDS: LANOXIN PO SCH (08:31)
[2020-01-14] MEDS: CALAN SR PO SCH ×2 (08:31→20:34)
[2020-01-14] MEDS: ROCEPHIN 1 GM/50 ML D5W 1 GM/50 ML BAG IV SCH (08:31)
[2020-01-14] MEDS: PREDNISONE PO SCH (08:31)
[2020-01-14] MEDS: K-DUR PO SCH (08:31)
[2020-01-14] MEDS: LEXAPRO PO SCH (08:31)
[2020-01-14] MEDS: COZAAR PO SCH (08:33)
[2020-01-14] MEDS: LEVEMIR SUBCUT SCH (08:34)
[2020-01-14] MEDS: HUMULIN R SUBCUT PRN ×3 (10:58→20:35)
[2020-01-14] MEDS: NORCO 5-325 PO PRN (14:01)
[2020-01-14] MEDS: KEFLEX PO SCH ×2 (14:35→20:34)
[2020-01-14] MEDS: COUMADIN PO SCH (16:58)
[2020-01-14] MEDS: ZOCOR PO SCH (16:58)
[2020-01-14] MEDS: XANAX PO SCH (20:34)
[2020-01-14] MEDS: NEURONTIN PO SCH (20:34)
[2020-01-15] MEDS: DUONEB NEB SCH ×2 (04:33→11:10)
[2020-01-15] MEDS: PULMICORT 1 MG/2 ML NEB SCH (04:33)
[2020-01-15 05:14] LABS: HEMATOCRIT 34.6 % (37.0-47.0)
[2020-01-15 06:04] VITALS: BP 131/60; TEMP 98.8
[2020-01-15] MEDS: HUMULIN R SUBCUT PRN ×2 (06:22→11:18)
[2020-01-15] MEDS: PROTONIX PO SCH (06:22)
[2020-01-15] MEDS: LASIX TAB PO SCH (06:22)
[2020-01-15] MEDS: K-DUR PO SCH (08:37)
[2020-01-15] MEDS: KEFLEX PO SCH (08:37)
[2020-01-15] MEDS: CALAN SR PO SCH (08:37)
[2020-01-15] MEDS: MEGACE PO SCH (08:37)
[2020-01-15] MEDS: COZAAR PO SCH (08:38)
[2020-01-15] MEDS: LEXAPRO PO SCH (08:38)
[2020-01-15] MEDS: LANOXIN PO SCH (08:38)
[2020-01-15] MEDS: PREDNISONE PO SCH (08:38)
[2020-01-15] MEDS: LEVEMIR SUBCUT SCH (08:38)
--- NOTE | 2020-01-15 08:54 | PN ---
DATE OF SERVICE: 01/13/2020 SUBJECTIVE: 84 year old white female hospitalized with influenza type of syndrome with acute bronchitis and severe weakness with fatigue. The patient was practically unable to walk.The patient during the stay in the hospital has improved a lot in two to three days. The patient's condition has improved. She is up and about walking and appetite has improved. She has more strength but still short of breath on minimal exertion. REVIEW OF SYSTEMS: CONSTITUTIONAL: No night sweats. No fatigue, malaise, lethargy. No fever or chills. HEENT: Eyes: No visual changes. No eye pain. No eye discharge. ENT: No runny nose. No epistaxis. No sinus pain. No sore throat. No odynophagia. No congestion. RESPIRATORY: No cough, no congestion. No hemoptysis. Still shortness of breath on exertion. CARDIOVASCULAR: No angina symptoms. No CHF symptoms. No atypical chest pain for CAD. No palpitations. No PND. No orthopnea. GASTROINTESTINAL: No abdominal pain. No nausea or vomiting. No diarrhea or constipation. No hematemesis. No hematochezia. Appetite has improved. GENITOURINARY: No urgency. No frequency. No dysuria. No hematuria. No obstructive symptoms. No discharge. No pain. No significant abnormal bleeding. MUSCULOSKELETAL: No musculoskeletal pain; no joint swelling. NEUROLOGICAL: No headache. No neck pain. No syncope. No seizures. No dizziness. PSYCHIATRIC: Not anxious. No depression. No suicidal thoughts. No homicidal thoughts. SKIN: No rash. No lesions. No wounds. ENDOCRINE: No unexplained weight loss. No weight gain. HEMATOLOGIC/LYMPHATIC: No anemia. No purpura. No petechiae. No prolonged or excessive bleeding. No palpable lymph nodes. PHYSICAL EXAMINATION: VITAL SIGNS: Temperature 98.9, pulse 60, respiratory rate 16, blood pressure 104/70 and pulse ox 97%. HEENT: Head normocephalic, atraumatic. Eyes: Extraocular muscles are intact. Pupils are equal, round and reactive to light and accommodation. Ears: No lesions. Nose appeared normal. Throat: No exudate or erythema. NECK: Supple. No JVD, no carotid bruit. No lymphadenopathy or thyromegaly. LUNGS: Decreased breath sounds with mild wheeze. Clear to auscultation. Percussion note normal. Chest symmetrical. HEART: S1, S2, no S3. No murmurs. No cyanosis or clubbing. No ascites. Pulses: Dorsalis pedis and posterior tibial pulses +1 to +2 bilaterally. ABDOMEN: Soft. Nontender. Bowel sounds active. No CVA tenderness. No mass felt. The patient's BMI is 16 she is malnourished. Advised to put on weight. EXTREMITIES: No edema. Full range of motion of all extremities, equal. NEUROLOGIC: No focal deficit. Cranial nerves II through XII are grossly intact. No headache, no double vision or headache. SKIN: Not dry. Intact. Turgor - normal. LYMPHATIC: No palpable lymph nodes/no lymphedema. MUSCULOSKELETAL: Normal joints with no swelling. Muscle tone is normal. LABS: CT scan findings again discussed with the patient. The patient is very understanding and says whatever is going to happen happens and she is going to take one day at a time. She already has an appointment with Pulmonary physician. ASSESSMENT: 1. Acute bronchitis with COPD seems to be under control 2. Malnutrition, the patient strongly advised to eat 3. Severe chronic lung disease 4. History of smoking, Counseling for smoking done PLAN: 1. Continue antibiotics, steroids and NEBS 2. Counseling for smoking done 3. Continue Lanoxin 4. No SVT noted 5. Cardiovascular status stable. TIME SPENT: More than 30 minutes. Plan and coordination of the patient's care discussed in the presence of nurse. STEFANO
--- NOTE | 2020-01-15 09:12 | PCM.PROG ---
Attending Provider: ATTENDING PROVIDER: Dr. SAMUEL BELLO This patient is seen with Scarlett Brooks, Nurse Practitioner. DATE OF SERVICE: 01/15/20 SUBJECTIVE: This 84 year old /WHITE F was hospitalized 01/08/20. The patient is resting comfortably in bed. She is motivated and ready to go home. She has had good oral intake and has been up and working with therapy. She is walking 200+ feet. The patient has an appointment with [facility] on Wednesday01/17/20 as an outpatient. Cough has resolved. REVIEW OF SYSTEMS: CONSTITUTIONAL: Weakness improved. No night sweats. No fatigue, malaise, lethargy. No fever or chills. HEENT: Eyes: No visual changes. No eye pain. No eye discharge. ENT: No runny nose. No epistaxis. No sinus pain. No odynophagia. No congestion. RESPIRATORY: Cough improved. No hemoptysis. No shortness of breath. CARDIOVASCULAR: No angina symptoms. No CHF symptoms. No atypical chest pain for CAD. No palpitations. No orthopnea.. GASTROINTESTINAL: Appetite is better. No abdominal pain. No nausea or vomiting. No diarrhea or constipation. No hematemesis. No hematochezia. GENITOURINARY: No urgency. No frequency. No dysuria. No hematuria. No ob structive symptoms. No discharge. No pain. No significant abnormal bleeding. MUSCULOSKELETAL: No musculoskeletal pain; no joint swelling. NEUROLOGICAL: Awake, alert, oriented to time, place and person. No headache. No neck pain. No syncope. No seizures. No dizziness. PSYCHIATRIC: Not anxious. No depression. No suicidal thoughts. No homicidal thoughts. SKIN: No rash. No lesions. No wounds. ENDOCRINE: No unexplained weight loss. No weight gain. HEMATOLOGIC/LYMPHATIC: No anemia. No purpura. No petechiae. No prolonged or excessive bleeding. No palpable lymph nodes. PHYSICAL EXAMINATION: GENERAL: The patient is awake, alert and oriented, lying/sitting in bed in no distress. VITAL SIGNS: Temperature 98.8 F, Pulse 76, Respiratory Rate 16, BP 131/60, Pulse Ox 100% HEENT: Head normocephalic, atraumatic. Eyes: Extraocular muscles are intact. Pupils are equal, round and reactive to light and accommodation. Ears: No lesions. Nose appeared normal. Throat: No exudate or erythema. NECK: Supple. No JVD, no carotid bruit. No lymphadenopathy or thyromegaly. LUNGS: Diminished coarse breath sounds but improving. Percussion note normal. Chest symmetrical. HEART: S1, S2, no S3. No murmurs. No cyanosis or clubbing. No ascites. Pulses: Dorsalis pedis and posterior tibial pulses +1 to +2 both sides. ABDOMEN: Soft. Non-tender. Bowel sounds active. No CVA tenderness. No mass felt. EXTREMITIES: No edema. Full range of motion of all extremities, equal. NEUROLOGIC: No focal deficit. Cranial nerves II through XII are grossly intact. No headache, no double vision or headache. SKIN: Not dry. Intact. Turgor-normal. Color is good. LYMPHATIC: No palpable lymph nodes/no lymphedema. MUSCULOSKELETAL: Normal joints with no swelling. Muscle tone is normal. LAB REVIEW: 01/15/20 04:53 01/15/20 04:53 01/15/20 04:53: Sodium 136.3, Potassium 4.04, Chloride 98.2, Carbon Dioxide 36.0 H, Anion Gap 6.14, BUN 17.0, Creatinine 0.47 L, Estimated GFR (MDRD) 126.00, BUN/Creatinine Ratio 36.17, Glucose 195.2 H, Calcium 8.14 L, Total Bilirubin 0.21, AST 24.1, ALT 19.1, Alkaline Phosphatase 64.3, Total Protein 5.35 L, Albumin 2.67 L, Globulin 2.68, Albumin/Globulin Ratio 0.99 01/15/20 04:53: PT 24.8 H D, INR 2.67 01/15/20 04:53: WBC 10.30 H, RBC 3.86 L, Hgb 11.1 L, Hct 34.6 L, MCV 89.6, MCH 28.8, MCHC 32.1, RDW Coeff of Leland 14.6, Plt Count 280, Neutrophils % (Manual) 6 6.0, Lymphocytes % (Manual) 19.0, Monocytes % (Manual) 7.0, Eosinophils % (Manual) 1.0, Metamyelocytes % 4.0 H, Myelocytes % 3.0 H, Anisocytosis Not p resent ASSESSMENT: Please see below. 1. Acute Bronchitis 2. Coagulopathy resolved 3. Severe COPD 4. Smoking with counseling for smoking done 5. No active GI bleed 6. Hyperglycemia PLAN: 1. Will discuss with Dr. Bello about discharge plan. 2. Continue nebs and antibiotics. 3. Continue Prednisone. Plan and coordination of the patient's care discussed in the presence of Interpreter Translator and nurse. CONDITION: Stable SCRIBED BY: JACLYN ANDRADE Business Change Manager scribed while in presence of service performed by Dr. Bello/Scarlett Brooks APRN on 01/15/20 ([id number])
[2020-01-15] MEDS: NORCO 5-325 PO PRN (09:24)
--- NOTE | 2020-01-15 12:47 | CM.DICTOOL ---
ADMISSION: 01/08/20 14:26 DISCHARGE: JANUARY 15, 2020 DATE OF SERVICE: 01/15/20 FINAL DIAGNOSIS ACUTE BRONCHITIS DEHYDRATION ANEMIA, TRANSFUSION OF 2 UNITS PACKED CELLS COPD, STEROID DEPENDENT, OXYGEN DEPENDENT PULMONARY NODULE LLL PER CXR AND CT HISTORY OF ACUTE PNEUMONITIS DIABETES, TYPE 2 (A1C 8.1 08/2019) ATRIAL FIBRILLATION (COUMADIN) PERIPHERAL ARTERY DISEASE CAD GENERAL ANXIETY DISORDER OSTEOARTHRITIS (RIGHT KNEE) NON-COMPLIANCE OF MEDS, LIFESTYLE HISTORY OF UTI TOBACCO USE, CONTINUED PFT: SEVERE COPD (12/2018) ECHOCARDIOGRAM: (11/2019) LATE SYSTOLIC MITRAL VALVE PROLAPSE ENLARGED RIGHT VENTRICLE AND LEFT ATRIAL CAVITIES LVEF 70% CABG HYSTERECTOMY LAST VITALS Temp Pulse Resp BP Pulse Ox 98.8 F 88 19 131/60 98 01/15/20 06:00 01/15/20 08:38 01/15/20 08:00 01/15/20 06:00 01/15/20 10:00 TAKE THESE MEDICATIONS AT HOME Hydrocodone Bitart/Acetaminophen ([place] 5-325) 1 tab PO BID PRN PRN Reason: Pain Last Admin: 01/15/20 09:24 Dose: 1 tab Documented by: Albuterol/Ipratropium (Duoneb) 3 ml NEB RTQ6H [facility] Last Admin: 01/15/20 11:10 Dose: Not Given Documented by: Alprazolam (Xanax) 0.25 mg PO BEDTIME [facility] Last Admin: 01/14/20 20:34 Dose: 0.25 mg Documented by: Budesonide (Pulmicort 1 Mg/2 Ml) 1 mg NEB RTBID [facility] Last Admin: 01/15/20 04:33 Dose: 1 mg Documented by: Cephalexin (Keflex) 500 mg PO TID [facility] (RX) Stop: 01/17/20 14:59 Last Admin: 01/15/20 08:37 Dose: 500 mg Documented by: Digoxin (Lanoxin) 125 mcg PO DAILY [facility] Last Admin: 01/15/20 08:38 Dose: 125 mcg Documented by: Escitalopram Oxalate (Lexapro) 10 mg PO DAILY [facility] Last Admin: 01/15/20 08:38 Dose: 10 mg Documented by: Furosemide (Lasix Tab) 20 mg PO QDAC [facility] Last Admin: 01/15/20 06:22 Dose: 20 mg Documented by: Gabapentin (Neurontin) 300 mg PO BEDTIME [facility] Last Admin: 01/14/20 20:34 Dose: 300 mg Documented by: Insulin Detemir (Levemir) 15 unit SUBCUT DAILY [facility] Last Admin: 01/15/20 08:38 Dose: 15 unit Documented by: Losartan Potassium (Cozaar) 12.5 mg PO DAILY [facility] (DOSE CHANGED) Last Admin: 01/15/20 08:38 Dose: 12.5 mg Documented by: Megestrol Acetate (Megace) 400 mg PO DAILY [facility] Last Admin: 01/15/20 08:37 Dose: 400 mg Documented by: Pantoprazole Sodium (Protonix) 40 mg PO QDAC [facility] Last Admin: 01/15/20 06:22 Dose: 40 mg Documented by: Potassium Chloride (K-Dur) 20 meq PO DAILYWM [facility] Last Admin: 01/15/20 08:37 Dose: 20 meq Documented by: Prednisone (Prednisone) 20 mg PO DAILYWM [facility] (RX) Last Admin: 01/15/20 08:38 Dose: 10 mg Documented by: Simvastatin (Zocor) 40 mg PO QPM [facility] Last Admin: 01/14/20 16:58 Dose: 40 mg Documented by: Verapamil HCl (Calan Sr) 180 mg PO BID [facility] Last Admin: 01/15/20 08:37 Dose: 180 mg Documented by: Warfarin Sodium (Coumadin) 4 mg PO QPM [facility] Last Admin: 01/14/20 16:58 Dose: 4 mg Documented by: ALLERGIES fenofibrate nanocrystallized [From Tricor] Adverse Reaction (Verified 12/04/19 13:25) fenofibrate,micronized [From Tricor] Adverse Reaction (Verified 12/04/19 13:25) DISCONTINUED MEDICATIONS ASPIRIN 81 MG COZAAR 25 MG (DOSE CHANGED) HOLD COUMADIN WEDNESDAY AND WEDNESDAY (January AND ) NEW PRESCRIPTIONS: KEFLEX 500 MG TID FOR 5 DAYS PREDNISONE 20 MG DAILY FOR 5 DAYS XANAX 0.25 MG AT BEDTIME COZAAR 12.5 MG DAILY (TAKE 1/2 OF 25 MG) SMOKING: STRONGLY ADVISED TO STOP SMOKING DISEASE SPECIFIC EDUCATION: STEROID USE AND RISK OF GI IRRITATION, AVASCULAR NECROSIS, CATARACT FORMATION USE OF OXYGEN, NEBULIZER TREATMENTS APPOINTMENTS LAB REVIEW: 01/15/20 04:53 01/15/20 04:53 01/15/20 04:53: Sodium 136.3, Potassium 4.04, Chloride 98.2, Carbon Dioxide 36.0 H, Anion Gap 6.14, BUN 17.0, Creatinine 0.47 L, Estimated GFR (MDRD) 126.00, BUN/Creatinine Ratio 36.17, Glucose 195.2 H, Calcium 8.14 L, Total Bilirubin 0.21, AST 24.1, ALT 19.1, Alkaline Phosphatase 64.3, Total Protein 5.35 L, Albumin 2.67 L, Globulin 2.68, Albumin/Globulin Ratio 0.99 01/15/20 04:53: PT 24.8 H D, INR 2.67 01/15/20 04:53: WBC 10.30 H, RBC 3.86 L, Hgb 11.1 L, Hct 34.6 L, MCV 89.6, MCH 28.8, MCHC 32.1, RDW Coeff of Leland 14.6, Plt Count 280, Neutrophils % (Manual) 66.0, Lymphocytes % (Manual) 19.0, Monocytes % (Manual) 7.0, Eosinophils % (Manual) 1.0, Metamyelocytes % 4.0 H, Myelocytes % 3.0 H, Anisocytosis Not present PLAN: DISCHARGE HOME WITH DAUGHTER DIET: REGULAR TOLERATED ACTIVITY: GRADUALLY RESUME TOLERATED USE ROLLATOR WITH ALL AMBULATION CONTINUE TO USE NEBULIZER TREATMENTS: DUONEB AT LEAST 3-4 TIMES DAILY PULMICORT NEB TREATMENT TWICE A DAY CONTINUE OXYGEN AT 2 LITERS PER NASAL CANNULA CONTINUOUSLY AN APPOINTMENT IS SCHEDULED WITH DR[facility] TUCKER [facility] JAN[facility], 2020 AT 11 AM AN APPOINTMENT IS SCHEDULED WITH DR. BELLO ON JANUARY 19, 2020 AT 10:15 AM CONTINUE ALL MEDICATIONS EXCEPT DECREASE COZAAR TO 12.5 MG DAILY HOLD COUMADIN ON THE AND (JANUARY) CODE STATUS: DO NOT INTUBATE, CPR ONLY MRS. HINOJOSA IS ALERT AND ORIENTED X 4. SHE IS INDEPENDENT WITH ACTIVITIES OF DAILY LIVING, BUT MAY REQUIRE ASSISTANCE AT TIMES WITH BATHING. SHE LIVES AT HOME WITH HER AND GRANDDAUGHTER (SCHOOL AGE). HER DAUGHTER, HOMA IS SUPPORTIVE AND CHECKS ON PATIENT FREQUENTLY. MRS. HINOJOSA HAS A ROLLATOR, OXYGEN AND NEBULIZER AT HOME FOR HER USE. MRS. HINOJOSA IS OXYGEN DEPENDENT DUE TO COPD. HYDRATION STATUS HAS IMPROVED. MEAL INTAKES ARE 25-75% AND THE PATIENT FEEDS HERSELF WITHOUT DIFFICULTY. SHE IS CONTINENT OF BOWEL AND BLADDER, BUT WEARS D EPENDS UNDERGARMENTS. MRS. HINOJOSA IS AMBULATORY WITH SBA OF NURSING STAFF AND USE OF A ROLLATOR. HER GAIT IS STEADY. SKIN IS INTACT EXCEPT FOR AREAS OF ECCHYMOSIS TO THE UPPER EXTREMITIES. MD NADEEM HENRIQUEZ, TREASURY AGENT
--- NOTE | 2020-01-15 13:33 | PN ---
DATE OF SERVICE: 01/14/2020 SUBJECTIVE: The patient was seen and examined this morning. The patient's condition has improved. She has been able to walk. Appetite seems to have improved. Coughing is much less. REVIEW OF SYSTEMS: CONSTITUTIONAL: No night sweats. No fatigue, malaise, lethargy. No fever or chills. HEENT: Eyes: No visual changes. No eye pain. No eye discharge. ENT: No runny nose. No epistaxis. No sinus pain. No sore throat. No odynophagia. No congestion. RESPIRATORY: No cough, no congestion. No hemoptysis. No shortness of breath. CARDIOVASCULAR: No angina symptoms. No CHF symptoms. No atypical chest pain for CAD. No palpitations. No PND. No orthopnea. GASTROINTESTINAL: No abdominal pain. No nausea or vomiting. No diarrhea or constipation. No hematemesis. No hematochezia. GENITOURINARY: No urgency. No frequency. No dysuria. No hematuria. No obstructive symptoms. No discharge. No pain. No significant abnormal bleeding. MUSCULOSKELETAL: No musculoskeletal pain; no joint swelling. NEUROLOGICAL: No headache. No neck pain. No syncope. No seizures. No dizziness. PSYCHIATRIC: Not anxious. No depression. No suicidal thoughts. No homicidal thoughts. SKIN: No rash. No lesions. No wounds. ENDOCRINE: No unexplained weight loss. No weight gain. HEMATOLOGIC/LYMPHATIC: No anemia. No purpura. No petechiae. No prolonged or excessive bleeding. No palpable lymph nodes. PHYSICAL EXAMINATION: VITAL SIGNS: Temperature 97.5, pulse 80, respiratory rate 14, blood pressure 120/61 and pulse ox 98%. HEENT: Head normocephalic, atraumatic. Eyes: Extraocular muscles are intact. Pupils are equal, round and reactive to light and accommodation. Ears: No lesions. Nose appeared normal. Throat: No exudate or erythema. NECK: Supple. No JVD, no carotid bruit. No lymphadenopathy or thyromegaly. LUNGS:Decreased breath sounds. Clear to auscultation. Percussion note normal. Chest symmetrical. HEART: S1, S2, no S3. No murmurs. No cyanosis or clubbing. No ascites. Pulses: Dorsalis pedis and posterior tibial pulses +1 to +2 bilaterally. ABDOMEN: Soft. Nontender. Bowel sounds active. No CVA tenderness. No mass felt. EXTREMITIES: No edema. Full range of motion of all extremities, equal. NEUROLOGIC: No focal deficit. Cranial nerves II through XII are grossly intact. No headache, no double vision or headache. SKIN: Not dry. Intact. Turgor - normal. LYMPHATIC: No palpable lymph nodes/no lymphedema. MUSCULOSKELETAL: Normal joints with no swelling. Muscle tone is normal. LABS: Hgb 11.9, hct 36, WBC 11,000 normal differential, creatinine 0.5, BUN 22, potassium 3.5, INR 1.88 acceptable. ASSESSMENT: 1. Acute bronchitis with COPD resolving 2. Coronary bypass surgery, stable CVS status 3. Abnormal CT scan with possibility of lung cancer, left lung PLAN: 1. The patient has already got an appointment to see Pulmonary physician. The patient's overall status stable. She is not worried about her abnormal CT scan. She says that "I am going to take one day at a time." CONDITION: Stable. TIME SPENT: More than 30 minutes. Plan and coordination of the patient's care discussed in the presence of nurse. STEFANO
--- NOTE | 2020-01-19 11:54 | PN ---
DATE OF SERVICE: 01/11/20 SUBJECTIVE: The patient was seen and examined with the nurse practitioner. The patient's condition is steadily improving. The patient is coughing much less. The appetite has gone up. REVIEW OF SYSTEMS: CONSTITUTIONAL: No night sweats. No fatigue, malaise, lethargy. No fever or chills. HEENT: Eyes: No visual changes. No eye pain. No eye discharge. ENT: No runny nose. No epistaxis. No sinus pain. No sore throat. No odynophagia. No congestion. RESPIRATORY: Less cough. No hemoptysis. No shortness of breath. CARDIOVASCULAR: No angina symptoms. No CHF symptoms. No atypical chest pain for CAD. No palpitations. No PND. No orthopnea. GASTROINTESTINAL: Appetite is better. No abdominal pain. No nausea or vomiting. No diarrhea or constipation. No hematemesis. No hematochezia. GENITOURINARY: No urgency. No frequency. No dysuria. No hematuria. No obstructive symptoms. No discharge. No pain. No significant abnormal bleeding. MUSCULOSKELETAL: No musculoskeletal pain; no joint swelling. NEUROLOGICAL: No headache. No neck pain. No syncope. No seizures. No dizziness. PSYCHIATRIC: Not anxious. No depression. No suicidal thoughts. No homicidal thoughts. SKIN: No rash. No lesions. No wounds. ENDOCRINE: No unexplained weight loss. No weight gain. HEMATOLOGIC/LYMPHATIC: No anemia. No purpura. No petechiae. No prolonged or excessive bleeding. No palpable lymph nodes. PHYSICAL EXAMINATION: HEENT: Head normocephalic, atraumatic. Eyes: Extraocular muscles are intact. Pupils are equal, round and reactive to light and accommodation. Ears: No lesions. Nose appeared normal. Throat: No exudate or erythema. NECK: Supple. No JVD, no carotid bruit. No lymphadenopathy or thyromegaly. LUNGS: Decreased breath sounds. Clear to auscultation. Percussion note normal. Chest symmetrical. HEART: S1, S2, no S3. No murmurs. No cyanosis or clubbing. No ascites. Pulses: Dorsalis pedis and posterior tibial pulses +1 to +2 bilaterally. ABDOMEN: Soft. Nontender. Bowel sounds active. No CVA tenderness. No mass felt. EXTREMITIES: No edema. Full range of motion of all extremities, equal. NEUROLOGIC: No focal deficit. Cranial nerves II through XII are grossly intact. No headache, no double vision or headache. SKIN: Not dry. Intact. Turgor - normal. LYMPHATIC: No palpable lymph nodes/no lymphedema. MUSCULOSKELETAL: Normal joints with no swelling. Muscle tone is normal. The patient's INR is a lot better. The patient's finding on CT scan will be discussed tomorrow with daughter. The daughter came to see me and I explained to her that it will be known to the patient tomorrow. The patient's prognosis is poor. TIME SPENT: More than 30 minutes. Plan and coordination of the patient's care discussed in the presence of nurse. STEFANO
--- NOTE | 2020-01-22 13:23 | PN ---
01/08/2020: Level 5 01/09/2020: Intermediate 01/10/2020: Intermediate 01/11/2020: Intermediate 01/12/2020: Intermediate 01/13/2020: Intermediate 01/14/2020: Intermediate 01/15/2020: D as in discharge MTDD
--- NOTE | 2020-01-22 13:23 | DS ---
DATE OF SERVICE: 01/15/2020 FINAL DIAGNOSIS: 1. ACUTE BRONCHITIS 2. DEHYDRATION 3. ANEMIA, TRANSFUSION OF 2 UNITS PACKED CELLS 4. COPD, STEROID DEPENDENT, OXYGEN DEPENDENT 5. PULMONARY NODULE LLL PER CHEST X-RAY AND CT 6. HISTORY OF ACUTE PNEUMONITIS 7. DIABETES, TYPE 2 (A1C 8.1 08/2019) 8. ATRIAL FIBRILLATION (COUMADIN) 9. PERIPHERAL ARTERY DISEASE 10.CAD 11.GENERAL ANXIETY DISORDER 12.OSTEOARTHRITIS (RIGHT KNEE) 13.NON-COMPLIANCE OF MEDS, LIFESTYLE 14.HISTORY OF UTI 15.TOBACCO USE, CONTINUED 16.PFT: SEVERE COPD (12/2018) 17.ECHOCARDIOGRAM: (11/2019); LATE SYSTOLIC MITRAL VALVE PROLAPSE, ENLARGED RIGHT VENTRICLE AND LEFT ATRIAL, CAVITIES LVEF 70%, 18.CABG 19.HYSTERECTOMY LAST VITALS: Temp Pulse Resp BP Pulse Ox 98.8 F 88 19 131/60 98 01/15/20 06:00 01/15/20 08:38 01/15/20 08:00 01/15/20 06:00 01/15/20 10:00 DISCHARGE INSTRUCTIONS: DISCHARGE HOME WITH DAUGHTER. CONTINUE TO USE NEBULIZER TREATMENTS: DUONEB AT LEAST 3-4 TIMES DAILY PULMICORT NEB TREATMENT TWICE A DAY, CONTINUE OXYGEN AT 2 LITERS PER NASAL CANNULA CONTINUOUSLY. AN APPOINTMENT IS SCHEDULED WITH DR[facility] TUCKER AT [facility] ON JANUARY 17, 2020 AT 11 AM AN APPOINTMENT IS SCHEDULED WITH DR. BELLO ON JANUARY 19, 2020 AT 10:15 AM. CONTINUE ALL MEDICATIONS EXCEPT DECREASE COZAAR TO 12.5 MG DAILY. HOLD COUMADIN ON THE AND (JANUARY). CODE STATUS: DO NOT INTUBATE, CPR ONLY. TAKE THESE MEDICATIONS AT HOME: Hydrocodone Bitart/Acetaminophen ([place] 5-325) 1 tab PO BID PRN PRN Reason: Pain Last Admin: 01/15/20 09:24 Dose: 1 tab Documented by: Albuterol/Ipratropium (Duoneb) 3 ml NEB RTQ6H MARIS Last Admin: 01/15/20 11:10 Dose: Not Given Documented by: Alprazolam (Xanax) 0.25 mg PO BEDTIME MARIS Last Admin: 01/14/20 20:34 Dose: 0.25 mg Documented by: Budesonide (Pulmicort 1 Mg/2 Ml) 1 mg NEB RTBID MARIS Last Admin: 01/15/20 04:33 Dose: 1 mg Documented by: Cephalexin (Keflex) 500 mg PO TID MARIS (RX) Stop: 01/17/20 14:59 Last Admin: 01/15/20 08:37 Dose: 500 mg Documented by: Digoxin (Lanoxin) 125 mcg PO DAILY [facility] Last Admin: 01/15/20 08:38 Dose: 125 mcg Documented by: Escitalopram Oxalate (Lexapro) 10 mg PO DAILY [facility] Last Admin: 01/15/20 08:38 Dose: 10 mg Documented by: Furosemide (Lasix Tab) 20 mg PO QDAC [facility] Last Admin: 01/15/20 06:22 Dose: 20 mg Documented by: Gabapentin (Neurontin) 300 mg PO BEDTIME [facility] Last Admin: 01/14/20 20:34 Dose: 300 mg Documented by: Insulin Detemir (Levemir) 15 unit SUBCUT DAILY [facility] Last Admin: 01/15/20 08:38 Dose: 15 unit Documented by: Losartan Potassium (Cozaar) 12.5 mg PO DAILY [facility] (DOSE CHANGED) Last Admin: 01/15/20 08:38 Dose: 12.5 mg Documented by: Megestrol Acetate (Megace) 400 mg PO DAILY [facility] Last Admin: 01/15/20 08:37 Dose: 400 mg Documented by: Pantoprazole Sodium (Protonix) 40 mg PO QDAC [facility] Last Admin: 01/15/20 06:22 Dose: 40 mg Documented by: Potassium Chloride (K-Dur) 20 meq PO DAILYWM [facility] Last Admin: 01/15/20 08:37 Dose: 20 meq Documented by: Prednisone (Prednisone) 20 mg PO DAILYWM MARIS (RX) Last Admin: 01/15/20 08:38 Dose: 10 mg Documented by: Simvastatin (Zocor) 40 mg PO QPM [facility] Last Admin: 01/14/20 16:58 Dose: 40 mg Documented by: Verapamil HCl (Calan Sr) 180 mg PO BID [facility] Last Admin: 01/15/20 08:37 Dose: 180 mg Documented by: Warfarin Sodium (Coumadin) 4 mg PO QPM [facility] Last Admin: 01/14/20 16:58 Dose: 4 mg Documented by: ALLERGIES: fenofibrate nanocrystallized [From Tricor] Adverse Reaction (Verified 12/04/19 13:25) fenofibrate,micronized [From Tricor] Adverse Reaction (Verified 12/04/19 13:25) DISCONTINUED MEDICATIONS: ASPIRIN 81 MG COZAAR 25 MG (DOSE CHANGED) HOLD COUMADIN WEDNESDAY AND WEDNESDAY (January AND ) NEW PRESCRIPTIONS: KEFLEX 500 MG TID FOR 5 DAYS PREDNISONE 20 MG DAILY FOR 5 DAYS XANAX 0.25 MG AT BEDTIME COZAAR 12.5 MG DAILY (TAKE 1/2 OF 25 MG) SMOKING: STRONGLY ADVISED TO STOP SMOKING DISEASE SPECIFIC EDUCATION: STEROID USE AND RISK OF GI IRRITATION, AVASCULAR NECROSIS, CATARACT FORMATION USE OF OXYGEN, NEBULIZER TREATMENTS APPOINTMENTS LAB REVIEW: 01/15/20 04:53 01/15/20 04:53 01/15/20 04:53: Sodium 136.3, Potassium 4.04, Chloride 98.2, Carbon Dioxide 36.0 H, Anion Gap 6.14, BUN 17.0, Creatinine 0.47 L, Estimated GFR (MDRD) 126.00, BUN/Creatinine Ratio 36.17, Glucose 195.2 H, Calcium 8.14 L, Total Bilirubin 0.21, AST 24.1, ALT 19.1, Alkaline Phosphatase 64.3, Total Protein 5.35 L, Albumin 2.67 L, Globulin 2.68, Albumin/Globulin Ratio 0.99 01/15/20 04:53: PT 24.8 H D, INR 2.67 01/15/20 04:53: WBC 10.30 H, RBC 3.86 L, Hgb 11.1 L, Hct 34.6 L, MCV 89.6, MCH 28.8, MCHC 32.1, RDW Coeff of [place]eland 14.6, Plt Count 280, Neutrophils % (Manual) 66.0, Lymphocytes % (Manual) 19.0, Monocytes % (Manual) 7.0, Eosinophils % (Manual) 1.0, Metamyelocytes % 4.0 H, Myelocytes % 3.0 H, Anisocytosis Not present DIET: REGULAR TOLERATED ACTIVITY: GRADUALLY RESUME TOLERATED USE ROLLATOR WITH ALL AMBULATION HOSPITAL COURSE: 84 year old white female was hospitalized through the office for being short of breath, cough, congestion and malnourished. The patient has BMI of 16. She has continued to smoke. She has recurrent acute bronchitis with pneumonitis with severe chronic lung disease. She has also had coronary bypass surgery, peripheral arterial disease with diabetes mellitus. The patient during the stay in the office was treated with IV antibiotics Rocephin and Zithromax. On discharge she was put on Keflex and Prednisone. During the stay in the hospital the patient was found to have left lower lobe mass speculated very suspicious of malignancy. The patient has referred to Pulmonary Physician, Dr. Tucker as an outpatient, In the past the patient has been seen by Dr. Tucker. The patient's other cardiovascular problem like coronary bypass surgery with coronary artery disease is stable. At the time of discharge the patient is up and about and her appetite has improved. Counseling for smoking was done. She is under weight with BMI of 16 to 17. Nutrition discussed with her. PROGNOSIS: Poor. The patient is DNR. TIME SPENT: More than 60 minutes. STEFANO
--- NOTE | 2020-01-22 13:26 | PN ---
DATE OF SERVICE: 01/15/2020 SUBJECTIVE: The patient was seen and examined with the Nurse Practitioner. The patient's condition has improved. She has bronchitis and also has a mass for which she is going to be followed by physician. The patient is a smoker. PROGNOSIS: Poor considering all her medical conditions and noncompliance of lifestyle and malnutrition. TIME SPENT: More than 30 minutes. Plan and coordination of the patient's care discussed in the presence of nurse. STEFANO
--- NOTE | 2020-01-22 13:30 | PN ---
DATE OF SERVICE: 01/12/2020 SUBJECTIVE: The patient was seen and examined with the Nurse Practitioner. The patient's condition is stable. She is improving. She is up and about. Appetite has improved. We will restart the Coumadin. The daughter was present in the room when I talked to the patient and told her that her CT scan showed possibility of cancer of the lung with a tumor. The patient took it very well. She says that she is going to take one day at a time. The patient is already referred to Pulmonary physician to be seen on of this month. The patient's blood sugar is high because of steroids. She is going to be on Prednisone 10mg and Solu- Cortef will be discontinued. The patient was seen and examined with the Nurse Practitioner. CONDITION: Improving TIME SPENT: More than 30 minutes. Plan and coordination of the patient's care discussed in the presence of nurse. STEFANO
== END 2020-01-15 13:06 | disposition home or self-care (01) | DRG 202 ==
LOC: MEDSURG B 14:26
PROVIDERS: ADMIT Internal Medicine; ATTEND Internal Medicine

== ENCOUNTER 2020-09-10 11:33 | Inpatient (IN) ==
[2020-09-10] MEDS ORDERED: NITROSTAT SL PRN (11:59)
[2020-09-10] MEDS ORDERED: ATROPINE SULFATE PFS IVP PRN (11:59)
[2020-09-10] MEDS ORDERED: TYLENOL PO PRN (11:59)
[2020-09-10] MEDS ORDERED: VISTARIL INJ IM PRN (11:59)
[2020-09-10 12:10] VITALS: BMI 17.4
[2020-09-10 12:34] LABS: BASOPHILS % (AUTO) 0.1 % (0.0-3.0); IMMATURE GRANULOCYTE # (AUTO) 0.1 (0.0-1.0); IMMATURE GRANULOCYTE % (AUTO) 0.5 % (0.0-5.0); LYMPHOCYTES % (AUTO) 7.6 (10.0-50.0); MEAN CORPUSCULAR HGB CONC 34.2 (31.8-35.4); MEAN CORPUSCULAR VOLUME 93.6 fl (81.0-99.0); MONOCYTES # (AUTO) 0.7 K/uL (0.4-2.0); MONOCYTES % (AUTO) 5.3 (0-10); NEUTROPHILS # (AUTO) 10.8 K/ul (2.0-6.9); NEUTROPHILS % (AUTO) 86.5 % (42.2-75.2); PLATELET COUNT 225 10^3/uL (140-440); RDW COEFFICIENT OF VARIATION 12.6 % (11.6-14.8); RED BLOOD COUNT 4.06 10^6/ul (4.20-5.40); WHITE BLOOD COUNT 12.43 K/ul (4.6-10.2)
[2020-09-10 12:40] LABS: ABG BASE EXCESS 8.1 (-2.0-2.0); ABG PH 7.52 (7.35-7.45); ABG TCO2 32.2 (22.0-28.0)
[2020-09-10 12:41] LABS: ABG OXYGEN SATURATION 98.9 % (95-100)
[2020-09-10 12:47] LABS: ALANINE AMINOTRANSFERASE 26.8 U/L (0-35); ALBUMIN 4.09 g/dL (3.5-5.0); ALKALINE PHOSPHATASE 67.5 U/L (53-141); ASPARTATE AMINO TRANSFERASE 37.4 U/L (14-36); BILIRUBIN,TOTAL 0.54 mg/dL (0.2-1.3); BLOOD UREA NITROGEN 20.6 mg/dL (7-17); CALCIUM 9.92 mg/dL (8.4-10.2); CARBON DIOXIDE 28.1 mmol/L (22-30.0); CHLORIDE 94.7 mmol/L (98-107); CREATININE 0.56 mg/dL (0.60-1.30); GLUCOSE 169.3 mg/dL (74-106); POTASSIUM 4.56 mmol/L (3.5-5.1); SODIUM 129.7 mmol/L (134.5-145); TOTAL PROTEIN 7.32 g/dL (6.3-8.2)
[2020-09-10] MEDS: SYMBICORT 160-4.5 MCG INHALER IH SCH ×2 (13:13→20:17)
[2020-09-10] MEDS: ROCEPHIN 1 GM/50 ML D5W 1 GM/50 ML BAG IV SCH (13:16)
[2020-09-10] MEDS: ZITHROMAX PO SCH (13:16)
[2020-09-10] MEDS: SODIUM CHLORIDE 1,000 ML IV SCH (13:16)
[2020-09-10] MEDS: SOLU-CORTEF 100 MG IVP SCH ×2 (13:16→20:16)
[2020-09-10] MEDS: VENTOLIN HFA (PER PUFF-WITH SPACER) IH SCH ×2 (13:54→19:36)
--- NOTE | 2020-09-10 14:02 | DI ---
EXAM: Chest one view HISTORY: Shortness of air, cough COMPARISON: 01/08/20 TECHNIQUE: Single view of the chest was performed FINDINGS: Bilateral interstitial prominence. Granulomatous calcification. There is no pleural effus ion or pneumothorax. The heart is normal in size. The mediastinal contour is normal. Median sterno andrew wires. There are no acute abnormalities of the bones. IMPRESSION: Bilateral interstitial prominence could relate to lower airway inflammation/infection/br onchiolitis and/or mild pulmonary vascular congestion.
[2020-09-10 15:28] LABS: BILIRUBIN,URINE Negative (NEGATIVE); CLARITY,URINE Slightly (CLEAR); COLOR,URINE Yellow (YELLOW); GLUCOSE, URINE (UA) Negative (NEGATIVE); KETONES,URINE Negative (NEGATIVE); LEUKOCYTE ESTERASE ,URINE Negative (NEGATIVE); NITRITE,URINE Negative (NEGATIVE); PH,URINE 6.5 (5-9); PROTEIN,URINE 1+ (NEGATIVE); URINE, BLOOD Trace-intact (NEGATIVE); UROBILINOGEN,URINE 0.2 (0.2)
[2020-09-10 15:36] LABS: SQUAMOUS EPITHELIAL CELL,UR 0-2 (0-5); URINE RBC, MICROSCOPIC 0-2 (0-2)
[2020-09-10] MEDS ORDERED: LASIX TAB PO PRN (19:18)
[2020-09-10] MEDS ORDERED: NORCO 5-325 PO PRN (19:18)
[2020-09-10] MEDS: XANAX PO SCH (20:16)
[2020-09-10] MEDS ORDERED: CALAN SR PO SCH (21:00)
[2020-09-10] MEDS: HUMULIN R SUBCUT PRN (21:00)
[2020-09-11] MEDS: SODIUM CHLORIDE 1,000 ML IV SCH ×2 (02:19→16:39)
[2020-09-11] MEDS: VENTOLIN HFA (PER PUFF-WITH SPACER) IH SCH ×4 (04:55→19:46)
[2020-09-11 05:19] LABS: BASOPHILS % (AUTO) 0.1 % (0.0-3.0); HEMATOCRIT 38.6 % (37.0-47.0); HEMOGLOBIN 12.6 g/dl (12.0-16.0); IMMATURE GRANULOCYTE # (AUTO) 0.1 (0.0-1.0); IMMATURE GRANULOCYTE % (AUTO) 0.6 % (0.0-5.0); LYMPHOCYTES # (AUTO) 1.4 K/uL (0.60-3.4); LYMPHOCYTES % (AUTO) 14.9 (10.0-50.0); MEAN CORPUSCULAR HEMOGLOBIN 31.3 pg (27.0-31.0); MEAN CORPUSCULAR HGB CONC 32.6 (31.8-35.4); MEAN CORPUSCULAR VOLUME 95.8 fl (81.0-99.0); MONOCYTES # (AUTO) 0.7 K/uL (0.4-2.0); MONOCYTES % (AUTO) 7.5 (0-10); NEUTROPHILS % (AUTO) 76.9 % (42.2-75.2); PLATELET COUNT 215 10^3/uL (140-440); RDW COEFFICIENT OF VARIATION 12.5 % (11.6-14.8); RED BLOOD COUNT 4.03 10^6/ul (4.20-5.40); WHITE BLOOD COUNT 9.08 K/ul (4.6-10.2)
[2020-09-11 05:27] LABS: PROTHROMBIN TIME 14.7 SEC (9.3-11.0)
[2020-09-11 05:30] LABS: ALANINE AMINOTRANSFERASE 23.6 U/L (0-35); ALBUMIN 3.53 g/dL (3.5-5.0); ASPARTATE AMINO TRANSFERASE 29.6 U/L (14-36); BILIRUBIN,TOTAL 0.4 mg/dL (0.2-1.3); BLOOD UREA NITROGEN 19.2 mg/dL (7-17); CALCIUM 9.18 mg/dL (8.4-10.2); CARBON DIOXIDE 29.6 mmol/L (22-30.0); CHLORIDE 102.2 mmol/L (98-107); CREATININE 0.58 mg/dL (0.60-1.30); GLUCOSE 129.3 mg/dL (74-106); POTASSIUM 4.12 mmol/L (3.5-5.1); TOTAL PROTEIN 6.64 g/dL (6.3-8.2)
[2020-09-11] MEDS: SOLU-CORTEF 100 MG IVP SCH ×3 (05:59→20:10)
[2020-09-11] MEDS ORDERED: ASPIRIN EC PO SCH (08:30)
[2020-09-11] MEDS ORDERED: K-DUR PO SCH (08:30)
[2020-09-11] MEDS: ZITHROMAX PO SCH (08:36)
[2020-09-11] MEDS: CALAN SR PO SCH ×2 (08:36→20:08)
[2020-09-11] MEDS: LEXAPRO PO SCH (08:37)
[2020-09-11] MEDS: LANOXIN PO SCH (08:37)
[2020-09-11] MEDS: SYMBICORT 160-4.5 MCG INHALER IH SCH ×2 (08:41→20:08)
[2020-09-11] MEDS: LEVEMIR SUBCUT SCH (08:42)
[2020-09-11] MEDS: ROCEPHIN 1 GM/50 ML D5W 1 GM/50 ML BAG IV SCH (08:46)
[2020-09-11] MEDS: HUMULIN R SUBCUT PRN ×3 (12:33→21:01)
[2020-09-11] MEDS ORDERED: NORCO 10-325 PO SCH (14:00)
--- NOTE | 2020-09-11 14:14 | HP ---
DATE OF SERVICE: 09/10/2020 REASON FOR HOSPITALIZATION/HISTORY OF PRESENT ILLNESS: The patient had repeat CT of chest-nodules smaller. She has lost 3 pounds. Had Decadron yesterday still shortness of breath O2 not helping much thicker sputum. Can't walk across room due to shortness of breath. PAST MEDICAL HISTORY: Left lung cancer COPD Hypertension Diabetes Mellitus Chronic bronchitis Anemia Atrial fibrillation Smoking Pulmonary nodule, left PAD CAD CABG PAST SURGICAL HISTORY: CABGs Hysterectomy Colonoscopy 05/21 Dr. Maloney REVIEW OF SYSTEMS: CONSTITUTIONAL: No fever, Fatigue. HEENT: Sinus drainage, no sore throat. RESPIRATORY: Cough, no congestion. CARDIOVASCULAR: No atypical chest pain for coronary artery disease. No angina, CHF symptoms, palpitations. Shortness of breath. GASTROINTESTINAL: No melena or abdominal pain. No GERD. GENITOURINARY: No hematuria, no prostatism, no polyuria. TWISTER OPERATOR: No blackout, no dizziness, no headache, no double vision. GAIT: Unsteady. MUSCULOSKELETAL: Osteoarthritis pain, no joint swelling. ENDOCRINE: No weight loss, no weight gain. SKIN: Not dry, no rash. PSYCHIATRIC: Not anxious, no depression, no suicidal thoughts, no homicidal thoughts. SOCIAL HISTORY: Marital Status: . Alcohol Usage: No. Tobacco Usage: Yes. FAMILY HISTORY: Father Mother Brother 4 Sister 4 MEDICATIONS: Aspirin 81mg daily [place] 5-325mg BID DUO NEB QID PRN Xanax 0.25mg QHS Pulmicort NEB BID Lanoxin 125mcg Q daily Lexapro 10mg daily Lasix 20mg daily Neurontin 300mg BID Levemir 15mg daily K-Dur 20mg daily Zocor 40mg daily Calan SR 180mg BID Coumadin 4mg daily Prednisone 5mg PO QAM ALLERGIES: Tricor PHYSICAL EXAMINATION: V/S: Pulse 84, blood pressure 1488/52, temperature 98.2, oxygen saturation 90%. BMI 17.6, height 5'3, weight 99.4. GENERAL APPEARANCE: Oriented times three. HEENT: Pale, Thick yellow sputum. NECK: No JVP, no bruits. RESPIRATORY: Decreased breath sounds with bilateral coarse rhonchi. CARDIOVASCULAR: S1, S2, no S3, no murmur. Irregular heart rate. No cyanosis, clubbing. No ascites. GI/ABDOMEN: No tenderness. Bowel sounds are active. EXTREMITIES: edema, pulses +1, equal. TWISTER OPERATOR: Deep tendon reflexes, sensory, motor and gait all normal. RECTAL: Dr. Maloney 2013 refused repeat./PELVIC: Advised yearly. The patient refused all. COLOCARE: refused. ASSESSMENT: 1. Shortness of breath 2. Acute pneumonitis 3. Generalized weakness 4. COPD 5. Left lung cancer 6. Frequent falls 7. Left lower lobe masses- status post radiation improved, DR. Vazquez/ Dr. Mullen 8. Chronic bronchitis 9. 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 13.MARYANA 14.Right knee osteoarthritis 15.Diabetes Mellitus type 2 A1c 6.5 16.COPD 17.Anemia 18.Fatigue 19.Atrial fibrillation-Coumadin 20.PAD 21.CAD 22.CABG PLAN: 1. Appointment with Dr. Diggs Wednesday 2. Appointment with Paz in 3 months 3. DASH/ADA diet discussed 4. Admit 5. Routine telemetry orders-No cardiac markers 6. CBC, CMP now and daily 7. INR daily 8. U/A with culture 9. Chest x-ray 10.Isolation-COVID precautions 11.COVID 19 [facility] 12.ABG on room air 13.DNR 14.Continue home medication 15.O2 1-3 liters PRN 16.Regular diet 17.Sliding scale insulin coverage 18.Normal saline IV at 75cc an hour 19.Rocephin 1 gram IV daily times one week 20.Zithromax 500mg PO daily times three days 21.Albuterol inhaler two puffs QID 22.Symbicort 160mg two puffs BID 23.Solu-Cortef 100mg IV Q 8 hours 24.Sputum culture TIME SPENT: More than 70 minutes. MTDD
[2020-09-11] MEDS: NORCO 10-325 PO SCH (14:36)
[2020-09-11] MEDS: COUMADIN PO SCH (16:41)
[2020-09-11] MEDS: ZOCOR PO SCH (16:41)
[2020-09-11] MEDS ORDERED: ZOCOR PO SCH (17:00)
[2020-09-11] MEDS: XANAX PO SCH (20:08)
[2020-09-12] MEDS: VENTOLIN HFA (PER PUFF-WITH SPACER) IH SCH (05:37)
[2020-09-12] MEDS: SOLU-CORTEF 100 MG IVP SCH ×3 (05:48→21:29)
[2020-09-12] MEDS: SODIUM CHLORIDE 1,000 ML IV SCH (05:48)
[2020-09-12 06:04] LABS: BASOPHILS % (AUTO) 0.1 % (0.0-3.0); HEMATOCRIT 38.1 % (37.0-47.0); HEMOGLOBIN 12.5 g/dl (12.0-16.0); IMMATURE GRANULOCYTE # (AUTO) 0.1 (0.0-1.0); IMMATURE GRANULOCYTE % (AUTO) 0.6 % (0.0-5.0); LYMPHOCYTES # (AUTO) 1.6 K/uL (0.60-3.4); LYMPHOCYTES % (AUTO) 18.2 (10.0-50.0); MEAN CORPUSCULAR HEMOGLOBIN 31.6 pg (27.0-31.0); MEAN CORPUSCULAR HGB CONC 32.8 (31.8-35.4); MEAN CORPUSCULAR VOLUME 96.2 fl (81.0-99.0); MONOCYTES # (AUTO) 0.8 K/uL (0.4-2.0); MONOCYTES % (AUTO) 8.7 (0-10); NEUTROPHILS # (AUTO) 6.5 K/ul (2.0-6.9); NEUTROPHILS % (AUTO) 72.4 % (42.2-75.2); PLATELET COUNT 204 10^3/uL (140-440); RDW COEFFICIENT OF VARIATION 12.6 % (11.6-14.8); RED BLOOD COUNT 3.96 10^6/ul (4.20-5.40); WHITE BLOOD COUNT 8.99 K/ul (4.6-10.2)
[2020-09-12 06:21] LABS: ALANINE AMINOTRANSFERASE 26.7 U/L (0-35); ALBUMIN 3.38 g/dL (3.5-5.0); ALKALINE PHOSPHATASE 60.8 U/L (53-141); ASPARTATE AMINO TRANSFERASE 31.7 U/L (14-36); BILIRUBIN,TOTAL 0.41 mg/dL (0.2-1.3); BLOOD UREA NITROGEN 14.8 mg/dL (7-17); CALCIUM 8.66 mg/dL (8.4-10.2); CARBON DIOXIDE 31.7 mmol/L (22-30.0); CREATININE 0.5 mg/dL (0.60-1.30); GLUCOSE 151.7 mg/dL (74-106); POTASSIUM 3.45 mmol/L (3.5-5.1); PROTHROMBIN TIME 11.9 SEC (9.3-11.0); TOTAL PROTEIN 6.38 g/dL (6.3-8.2)
[2020-09-12] MEDS ORDERED: NORCO 10-325 PO SCH (08:00)
[2020-09-12] MEDS: ROCEPHIN 1 GM/50 ML D5W 1 GM/50 ML BAG IV SCH (08:47)
[2020-09-12] MEDS: MUCINEX PO SCH ×2 (08:48→20:29)
[2020-09-12] MEDS: ZITHROMAX PO SCH (08:48)
[2020-09-12] MEDS: LEXAPRO PO SCH (08:49)
[2020-09-12] MEDS: LANOXIN PO SCH (08:50)
[2020-09-12] MEDS: NORCO 10-325 PO SCH ×2 (08:51→14:11)
[2020-09-12] MEDS: K-DUR PO SCH ×2 (08:51→17:14)
[2020-09-12] MEDS: CALAN SR PO SCH ×2 (08:51→20:29)
[2020-09-12] MEDS: LEVEMIR SUBCUT SCH (08:53)
--- NOTE | 2020-09-12 09:06 | PCM.PROG ---
Attending Provider: ATTENDING PROVIDER: Dr. SAMUEL BELLO This patient is seen with Lashawn Austin, Nurse Practitioner. DATE OF SERVICE: 09/12/20 SUBJECTIVE: This 85 year old /WHITE F was hospitalized 09/10/20. The patient is resting comfortably. Shortness of breath slightly improved. Still very fatigued with any kind of exertion. Now about to expectorate. No fever. REVIEW OF SYSTEMS: CONSTITUTIONAL: No night sweats. No fatigue, malaise, lethargy. No fever or chills. Weakness. HEENT: Eyes: No visual changes. No eye pain. No eye discharge. ENT: No runny nose. No epistaxis. No sinus pain. No odynophagia. No congestion. RESPIRATORY: Cough, no congestion. No hemoptysis. Shortness of breath. CARDIOVASCULAR: No angina symptoms. No CHF symptoms. No atypical chest pain for CAD. No palpitations. No orthopnea.. GASTROINTESTINAL: No abdominal pain. No nausea or vomiting. No diarrhea or constipation. No hematemesis. No hematochezia. GENITOURINARY: No urgency. No frequency. No dysuria. No hematuria. No obstructive symptoms. No discharge. No pain. No significant abnormal bleeding. MUSCULOSKELETAL: No musculoskeletal pain; no joint swelling. NEUROLOGICAL: Awake, alert, oriented to time, place and person. No headache. No neck pain. No syncope. No seizures. No dizziness. PSYCHIATRIC: Not anxious. No depression. No suicidal thoughts. No homicidal thoughts. SKIN: No rash. No lesions. No wounds. ENDOCRINE: No unexplained weight loss. No weight gain. HEMATOLOGIC/LYMPHATIC: No anemia. No purpura. No petechiae. No prolonged or excessive bleeding. No palpable lymph nodes. PHYSICAL EXAMINATION: GENERAL: The patient is awake, alert and oriented, lying in bed in no distress. VITAL SIGNS: Temperature 97.6 F, Pulse 82, Respiratory Rate 18, BP 145/82, Pulse Ox 96% HEENT: Head normocephalic, atraumatic. Eyes: Extraocular muscles are intact. Pupils are equal, round and reactive to light and accommodation. Ears: No lesions. Nose appeared normal. Throat: No exudate or erythema. NECK: Supple. No JVD, no carotid bruit. No lymphadenopathy or thyromegaly. LUNGS: Bilateral rhonchi. Faint expiratory wheezing. Clear to auscultation. Percussion note normal. Chest symmetrical. HEART: S1, S2, no S3. No murmurs. No cyanosis or clubbing. No ascites. Pulses: Dorsalis pedis and posterior tibial pulses +1 to +2 both sides. ABDOMEN: Soft. Non-tender. Bowel sounds active. No CVA tenderness. No mass felt. EXTREMITIES: No edema. Full range of motion of all extremities, equal. NEUROLOGIC: No focal deficit. Cranial nerves II through XII are grossly intact. No headache, no double vision or headache. SKIN: Not dry. Intact. Turgor-normal. LYMPHATIC: No palpable lymph nodes/no lymphedema. MUSCULOSKELETAL: Normal joints with no swelling. Muscle tone is normal. LAB REVIEW: 09/12/20 05:50 09/12/20 05:50 09/12/20 05:50: Sodium 136.0, Potassium 3.45 L, Chloride 100.0, Carbon Dioxide 31.7 H, Anion Gap 7.75, BUN 14.8, Creatinine 0.50 L, Estimated GFR (MDRD) 117.00, BUN/Creatinine Ratio 29.60, Glucose 151.7 H, Calcium 8.66, Total Bilirubin 0.41, AST 31.7, ALT 26.7, Alkaline Phosphatase 60.8, Total Protein 6. 38, Albumin 3.38 L, Globulin 3.00, Albumin/Globulin Ratio 1.12 09/12/20 05:50: PT 11.9 H, INR 1.22 09/12/20 05:50: WBC 8.99, RBC 3.96 L, Hgb 12.5, Hct 38.1, MCV 96.2, MCH 31.6 H, MCHC 32.8, RDW Coeff of Leland 12.6, Plt Count 204, Immature Gran % (Auto) 0.6, Neut % (Auto) 72.4, Lymph % (Auto) 18.2, [place] % (Auto) 8.7, Eos % (Auto) 0.0, Baso % (Auto) 0.1, Neut # (Auto) 6.5, Lymph # (Auto) 1.6, [place] # (Auto) 0.8, Eos # (Auto) 0.0, Baso # (Auto) 0.0, Immature Gran # (Auto) 0.1 09/10/20 13:57: SARS-CoV-2 (PCR) Not detected ASSESSMENT: Please see below. 1. Acute pneumonitis 2. COPD exacerbation 3. Shortness of breath 4. Atrial fibrillation 5. Diabetes Mellitus type 2 6. Quit smoking times one week 7. Generalized weakness. PLAN: 1. Stop IV fluids 2. Potassium twice a day today 3. Digoxin level 4. Extra 4mg of Coumadin today 5. Stop Budesonide inhaler 6. Stop Albuterol inhaler 7. DUONEBS Q 6 hours scheduled 8. Pulmicort NEB 1mg BID 9. Mucinex 600mg twice a day Plan and coordination of the patient's care discussed in the presence of Fnp and nurse. SCRIBED BY: ISH MONROY Pyrometer Mechanic scribed while in presence of service performed by Dr. Bello/Lashawn Austin APRN on 09/12/20 ([id number])
[2020-09-12] MEDS: DUONEB NEB SCH ×3 (11:17→23:10)
[2020-09-12] MEDS: HUMULIN R SUBCUT PRN ×3 (12:55→20:28)
--- NOTE | 2020-09-12 12:57 | PN ---
DATE OF SERVICE: 09/10/2020 SUBJECTIVE: The patient was hospitalized with acute bronchitis/pneumonitis with generalized weakness and dehydration. The patient will have a COVID test. She will be in the hospital with IV antibiotics and steroids. The patient's respiratory status has been deteriorating with continued smoking and advancement of her respiratory status overall. The patient has history of coronary bypass surgery for number of years ago. She had severe generalized atherosclerosis which is also advancing. The patient was seen and examined with the Nurse Practitioner. History and Physical was done. CONDITION: Stable for now. TIME SPENT: More than 30 minutes. Plan and coordination of the patient's care discussed in the presence of nurse. STEFANO
--- NOTE | 2020-09-12 13:29 | PN ---
DATE OF SERVICE: 09/11/2020 SUBJECTIVE: 85 year old white female hospitalized with acute pneumonitis, generalized weakness, cough and congestion. The patient is in Isolation for COVID 19. The swab was taken still the report is pending. The patient says that she is still coughing and short of breath but her appetite has improved some. Coughing up a lot of yellowish sputum. REVIEW OF SYSTEMS: CONSTITUTIONAL: No night sweats. No fatigue, malaise, lethargy. No fever or chills. HEENT: Eyes: No visual changes. No eye pain. No eye discharge. ENT: No runny nose. No epistaxis. No sinus pain. No sore throat. No odynophagia. No congestion. RESPIRATORY: No cough, no congestion. No hemoptysis. No shortness of breath. CARDIOVASCULAR: No angina symptoms. No CHF symptoms. No atypical chest pain for CAD. No palpitations. No PND. No orthopnea. GASTROINTESTINAL: No abdominal pain. No nausea or vomiting. No diarrhea or constipation. No hematemesis. No hematochezia. GENITOURINARY: No urgency. No frequency. No dysuria. No hematuria. No obstructive symptoms. No discharge. No pain. No significant abnormal bleeding. MUSCULOSKELETAL: No musculoskeletal pain; no joint swelling. NEUROLOGICAL: No headache. No neck pain. No syncope. No seizures. No dizziness. PSYCHIATRIC: Not anxious. No depression. No suicidal thoughts. No homicidal thoughts. SKIN: No rash. No lesions. No wounds. ENDOCRINE: No unexplained weight loss. No weight gain. HEMATOLOGIC/LYMPHATIC: No anemia. No purpura. No petechiae. No prolonged or excessive bleeding. No palpable lymph nodes. PHYSICAL EXAMINATION: VITAL SIGNS: Temperature 97.4, pulse 80, respiratory rate 18, blood pressure 160/60 and pulse ox 97% on 2 liters. HEENT: Head normocephalic, atraumatic. Eyes: Extraocular muscles are intact. Pupils are equal, round and reactive to light and accommodation. Ears: No lesions. Nose appeared normal. Throat: No exudate or erythema. NECK: Supple. No JVD, no carotid bruit. No lymphadenopathy or thyromegaly. LUNGS: Decreased breath sounds with bilateral wheeze. Clear to auscultation. Percussion note normal. Chest symmetrical. HEART: S1, S2, no S3. No murmurs. No cyanosis or clubbing. No ascites. Pulses: Dorsalis pedis and posterior tibial pulses +1 to +2 bilaterally. ABDOMEN: Soft. Nontender. Bowel sounds active. No CVA tenderness. No mass felt. EXTREMITIES: No edema. Full range of motion of all extremities, equal. NEUROLOGIC: No focal deficit. Cranial nerves II through XII are grossly intact. No headache, no double vision or headache. SKIN: Dry. Intact. Turgor - normal. LYMPHATIC: No palpable lymph nodes/no lymphedema. MUSCULOSKELETAL: Normal joints with no swelling. Muscle tone is normal. LABS: Hgb 12.6, hct 38, WBC 9,800 normal differential, creatinine 0.5, BUN 19, potassium 4.1 ASSESSMENT: 1. Acute pneumonitis/ bronchitis seems to be responded to IV antibiotics and steroids PLAN: 1. Continue to give inhalers 2. COVID 19 pending. 3. The rest of the medications 4. Cardiovascular status seems to be stable with no evidence of coronary insufficiency or CHF. 5. Counseling for smoking done. 6. The patient is under weight and she has been like this for several years now. Her appetite is poor. OVERALL HER CONDITION IS DETERIORATING WITH COPD AND CORONARY ARTERY DISEASE. TIME SPENT: More than 30 minutes. Plan and coordination of the patient's care discussed in the presence of nurse. STEFANO
[2020-09-12] MEDS: NEURONTIN PO PRN (15:20)
[2020-09-12] MEDS: ZOCOR PO SCH (17:14)
[2020-09-12] MEDS: COUMADIN PO ONE ×2 (17:15→17:22)
[2020-09-12] MEDS: COUMADIN PO SCH (17:23)
[2020-09-12] MEDS: PULMICORT 1 MG/2 ML NEB SCH (17:55)
[2020-09-12] MEDS: XANAX PO SCH (20:29)
[2020-09-13] MEDS: DUONEB NEB SCH ×4 (04:50→23:29)
[2020-09-13] MEDS: PULMICORT 1 MG/2 ML NEB SCH ×2 (04:50→16:50)
[2020-09-13] MEDS: SOLU-CORTEF 100 MG IVP SCH ×3 (05:29→20:44)
[2020-09-13 05:50] LABS: BASOPHILS % (AUTO) 0.1 % (0.0-3.0); HEMATOCRIT 38.8 % (37.0-47.0); HEMOGLOBIN 13.1 g/dl (12.0-16.0); IMMATURE GRANULOCYTE # (AUTO) 0.1 (0.0-1.0); LYMPHOCYTES # (AUTO) 1.6 K/uL (0.60-3.4); LYMPHOCYTES % (AUTO) 18.2 (10.0-50.0); MEAN CORPUSCULAR HGB CONC 33.8 (31.8-35.4); MEAN CORPUSCULAR VOLUME 94.6 fl (81.0-99.0); MONOCYTES # (AUTO) 0.6 K/uL (0.4-2.0); MONOCYTES % (AUTO) 6.6 (0-10); NEUTROPHILS # (AUTO) 6.5 K/ul (2.0-6.9); NEUTROPHILS % (AUTO) 74.1 % (42.2-75.2); PLATELET COUNT 220 10^3/uL (140-440); RDW COEFFICIENT OF VARIATION 12.5 % (11.6-14.8); WHITE BLOOD COUNT 8.74 K/ul (4.6-10.2)
[2020-09-13 06:05] LABS: PROTHROMBIN TIME 13.8 SEC (9.3-11.0)
[2020-09-13 06:08] LABS: ALANINE AMINOTRANSFERASE 31.7 U/L (0-35); ALBUMIN 3.51 g/dL (3.5-5.0); ALKALINE PHOSPHATASE 67.9 U/L (53-141); ASPARTATE AMINO TRANSFERASE 37.3 U/L (14-36); BILIRUBIN,TOTAL 0.44 mg/dL (0.2-1.3); BLOOD UREA NITROGEN 17.7 mg/dL (7-17); CALCIUM 9.07 mg/dL (8.4-10.2); CARBON DIOXIDE 33.5 mmol/L (22-30.0); CHLORIDE 98.2 mmol/L (98-107); CREATININE 0.51 mg/dL (0.60-1.30); GLUCOSE 165.5 mg/dL (74-106); POTASSIUM 3.82 mmol/L (3.5-5.1); SODIUM 135.1 mmol/L (134.5-145); TOTAL PROTEIN 6.55 g/dL (6.3-8.2)
[2020-09-13] MEDS ORDERED: COUMADIN PO STA (08:41)
--- NOTE | 2020-09-13 08:46 | PCM.PROG ---
Attending Provider: ATTENDING PROVIDER: Dr. SAMUEL BELLO DATE OF SERVICE: 09/13/20 SUBJECTIVE: This 85 year old /WHITE F was hospitalized 09/10/20 with acute bronchitis, pneumonitis and generalized weakness. The patient's condition is improving. She is feeling a lot better. Appetite has improved. REVIEW OF SYSTEMS: CONSTITUTIONAL: No night sweats. No fatigue, malaise, lethargy. No fever or chills. HEENT: Eyes: No visual changes. No eye pain. No eye discharge. ENT: No runny nose. No epistaxis. No sinus pain. No odynophagia. No congestion. RESPIRATORY: No cough, no congestion. No hemoptysis. No shortness of breath. CARDIOVASCULAR: No angina symptoms. No CHF symptoms. No atypical chest pain for CAD. No palpitations. No orthopnea.. GASTROINTESTINAL: No abdominal pain. No nausea or vomiting. No diarrhea or constipation. No hematemesis. No hematochezia. GENITOURINARY: No urgency. No frequency. No dysuria. No hematuria. No obstructive symptoms. No discharge. No pain. No significant abnormal bleeding. MUSCULOSKELETAL: No musculoskeletal pain; no joint swelling. NEUROLOGICAL: Awake, alert, oriented to time, place and person. No headache. No neck pain. No syncope. No seizures. No dizziness. PSYCHIATRIC: Not anxious. No depression. No suicidal thoughts. No homicidal thoughts. SKIN: No rash. No lesions. No wounds. ENDOCRINE: No unexplained weight loss. No weight gain. HEMATOLOGIC/LYMPHATIC: No anemia. No purpura. No petechiae. No prolonged or excessive bleeding. No palpable lymph nodes. PHYSICAL EXAMINATION: GENERAL: The patient is awake, alert and oriented to time, place and person, sitting in bed in no distress. VITAL SIGNS: Temperature 98 F, Pulse 73, Respiratory Rate 20, BP 146/64, Pulse Ox 98% HEENT: Head normocephalic, atraumatic. Eyes: Extraocular muscles are intact. Pupils are equal, round and reactive to light and accommodation. Ears: No lesions. Nose appeared normal. Throat: No exudate or erythema. NECK: Supple. No JVD, no carotid bruit. No lymphadenopathy or thyromegaly. LUNGS: Diminished breath sounds with mild wheezing. Clear to auscultation. Percussion note normal. Chest symmetrical. HEART: S1, S2, no S3. No murmurs. No cyanosis or clubbing. No ascites. Pulses: Dorsalis pedis and posterior tibial pulses +1 to +2 both sides. ABDOMEN: Soft. Non-tender. Bowel sounds active. No CVA tenderness. No mass felt. EXTREMITIES: No edema. Full range of motion of all extremities, equal. NEUROLOGIC: No focal deficit. Cranial nerves II through XII are grossly intact. No headache, no double vision or headache. SKIN: Warm and dry. Intact. Turgor-normal. LYMPHATIC: No palpable lymph nodes/no lymphedema. MUSCULOSKELETAL: Normal joints with no swelling. Muscle tone is normal. LAB REVIEW: 09/13/20 05:34 09/13/20 05:34 09/13/20 05:34: Sodium 135.1, Potassium 3.82, Chloride 98.2, Carbon Dioxide 33.5 H, Anion Gap 7.22, BUN 17.7 H, Creatinine 0.51 L, Estimated GFR (MDRD) 115.00, BUN/Creatinine Ratio 34.70, Glucose 165.5 H, Calcium 9.07, Total Bilirubin 0.44, AST 37.3 H, ALT 31.7, Alkaline Phosphatase 67.9, Total Protein 6.55, Albumin 3.51, Globulin 3.04, Albumin/Globulin Ratio 1.15 09/13/20 05:34: PT 13.8 H, INR 1.44 09/13/20 05:34: WBC 8.74, RBC 4.10 L, Hgb 13.1, Hct 38.8, MCV 94.6, MCH 32.0 H, MCHC 33.8, RDW Coeff of [place] 12.5, Plt Count 220, Immature Gran % (Auto) 1.0, Neut % (Auto) 74.1, Lymph % (Auto) 18.2, [place] % (Auto) 6.6, Eos % (Auto) 0.0, Baso % (Auto) 0.1, Neut # (Auto) 6.5, Lymph # (Auto) 1.6, [place] # (Auto) 0.6, Eos # (Auto) 0.0, Baso # (Auto) 0.0, Immature Gran # (Auto) 0.1 09/12/20 05:50: Digoxin 0.51 L ASSESSMENT: Please see below. 1. Acute bronchitis/COPD 2. Continued smoking, counseling for smoking done 3. Chronic lung disease 4. Malnourish with BMI 17 5. CABG 6. Dyslipidemia 7. Hypertension 8. Diabetes Mellitus PLAN: 1. Continue antibiotics 2. Steroids 3. NEBS 4. The patient was COVID negative. Plan and coordination of the patient's care discussed in the presence of Jingle Writer and nurse. PROGNOSIS: Guarded SCRIBED BY: ISH MONROY Intensive Care Medicine Specialist scribed while in presence of service performed by Dr. SAMUEL BELLO on 09/13/20 ([id number])
[2020-09-13] MEDS: LANOXIN PO SCH (09:13)
[2020-09-13] MEDS: LEXAPRO PO SCH (09:14)
[2020-09-13] MEDS: MUCINEX PO SCH ×2 (09:14→20:43)
[2020-09-13] MEDS: CALAN SR PO SCH ×2 (09:14→20:43)
[2020-09-13] MEDS: K-DUR PO SCH (09:14)
[2020-09-13] MEDS: NORCO 10-325 PO SCH ×2 (09:15→14:07)
[2020-09-13] MEDS: KEFLEX PO SCH ×3 (09:24→20:43)
[2020-09-13] MEDS: LEVEMIR SUBCUT SCH (09:24)
--- NOTE | 2020-09-13 11:48 | PN ---
DATE OF SERVICE: 09/12/20 SUBJECTIVE: The patient was seen and examined with the nurse practitioner. The patient's condition is stable. She is Covid negative. She is feeling better. Appetite is improving. Pneumonitis and bronchitis improving. The patient's prognosis is poor. ASSESSMENT: 1. Severe COPD. She has continued to smoke. 2. She has severe coronary artery disease, atherosclerosis and malnutrition. TIME SPENT: More than 30 minutes. Plan and coordination of the patient's care discussed in the presence of nurse. STEFANO
[2020-09-13] MEDS: HUMULIN R SUBCUT PRN ×3 (12:17→20:43)
[2020-09-13] MEDS: NEURONTIN PO PRN (13:31)
[2020-09-13] MEDS: ZOCOR PO SCH (17:12)
[2020-09-13] MEDS: COUMADIN PO SCH (17:12)
[2020-09-13] MEDS: XANAX PO SCH (20:43)
[2020-09-14] MEDS: DUONEB NEB SCH ×4 (04:55→23:10)
[2020-09-14] MEDS: PULMICORT 1 MG/2 ML NEB SCH ×2 (04:55→17:00)
[2020-09-14 05:32] LABS: BASOPHILS % (AUTO) 0.2 % (0.0-3.0); HEMATOCRIT 38.2 % (37.0-47.0); HEMOGLOBIN 12.9 g/dl (12.0-16.0); IMMATURE GRANULOCYTE # (AUTO) 0.1 (0.0-1.0); IMMATURE GRANULOCYTE % (AUTO) 1.1 % (0.0-5.0); LYMPHOCYTES # (AUTO) 1.4 K/uL (0.60-3.4); LYMPHOCYTES % (AUTO) 13.5 (10.0-50.0); MEAN CORPUSCULAR HEMOGLOBIN 31.9 pg (27.0-31.0); MEAN CORPUSCULAR HGB CONC 33.8 (31.8-35.4); MEAN CORPUSCULAR VOLUME 94.3 fl (81.0-99.0); MONOCYTES # (AUTO) 0.7 K/uL (0.4-2.0); MONOCYTES % (AUTO) 7.2 (0-10); PLATELET COUNT 218 10^3/uL (140-440); RDW COEFFICIENT OF VARIATION 12.3 % (11.6-14.8); RED BLOOD COUNT 4.05 10^6/ul (4.20-5.40); WHITE BLOOD COUNT 10.22 K/ul (4.6-10.2)
[2020-09-14 05:46] LABS: ALANINE AMINOTRANSFERASE 35.8 U/L (0-35); ALBUMIN 3.31 g/dL (3.5-5.0); ALKALINE PHOSPHATASE 62.7 U/L (53-141); ASPARTATE AMINO TRANSFERASE 33.4 U/L (14-36); BILIRUBIN,TOTAL 0.4 mg/dL (0.2-1.3); BLOOD UREA NITROGEN 17.1 mg/dL (7-17); CALCIUM 8.88 mg/dL (8.4-10.2); CARBON DIOXIDE 33.2 mmol/L (22-30.0); CHLORIDE 98.1 mmol/L (98-107); CREATININE 0.48 mg/dL (0.60-1.30); GLUCOSE 183.9 mg/dL (74-106); POTASSIUM 3.37 mmol/L (3.5-5.1); TOTAL PROTEIN 6.19 g/dL (6.3-8.2)
[2020-09-14] MEDS: KEFLEX PO SCH ×3 (05:50→20:17)
[2020-09-14] MEDS: HUMULIN R SUBCUT PRN ×4 (05:51→20:19)
[2020-09-14] MEDS: SOLU-CORTEF 100 MG IVP SCH ×3 (06:13→21:14)
[2020-09-14] MEDS: LANOXIN PO SCH (08:01)
[2020-09-14] MEDS: K-DUR PO SCH (08:03)
[2020-09-14] MEDS: NORCO 10-325 PO SCH ×2 (08:03→14:31)
[2020-09-14] MEDS: LEXAPRO PO SCH (08:03)
[2020-09-14] MEDS: CALAN SR PO SCH ×2 (08:03→20:17)
[2020-09-14] MEDS: LEVEMIR SUBCUT SCH (08:05)
[2020-09-14] MEDS: MUCINEX PO SCH ×2 (08:10→20:17)
[2020-09-14] MEDS ORDERED: XANAX PO STA (14:07)
[2020-09-14] MEDS: ZOCOR PO SCH (17:01)
[2020-09-14] MEDS: COUMADIN PO SCH (17:01)
[2020-09-14] MEDS: XANAX PO SCH (20:57)
[2020-09-14 22:05] VITALS: TEMP 97.6
[2020-09-15] MEDS: PULMICORT 1 MG/2 ML NEB SCH (04:44)
[2020-09-15] MEDS: DUONEB NEB SCH ×2 (04:44→11:10)
[2020-09-15] MEDS: SOLU-CORTEF 100 MG IVP SCH (05:33)
[2020-09-15] MEDS: KEFLEX PO SCH (05:34)
[2020-09-15 05:46] LABS: BASOPHILS % (AUTO) 0.2 % (0.0-3.0); HEMATOCRIT 38.9 % (37.0-47.0); IMMATURE GRANULOCYTE # (AUTO) 0.2 (0.0-1.0); IMMATURE GRANULOCYTE % (AUTO) 1.5 % (0.0-5.0); LYMPHOCYTES # (AUTO) 1.6 K/uL (0.60-3.4); LYMPHOCYTES % (AUTO) 15.5 (10.0-50.0); MEAN CORPUSCULAR HEMOGLOBIN 31.6 pg (27.0-31.0); MEAN CORPUSCULAR HGB CONC 33.4 (31.8-35.4); MEAN CORPUSCULAR VOLUME 94.6 fl (81.0-99.0); MONOCYTES # (AUTO) 0.7 K/uL (0.4-2.0); MONOCYTES % (AUTO) 7.3 (0-10); NEUTROPHILS # (AUTO) 7.7 K/ul (2.0-6.9); NEUTROPHILS % (AUTO) 75.5 % (42.2-75.2); PLATELET COUNT 210 10^3/uL (140-440); RDW COEFFICIENT OF VARIATION 12.4 % (11.6-14.8); RED BLOOD COUNT 4.11 10^6/ul (4.20-5.40); WHITE BLOOD COUNT 10.15 K/ul (4.6-10.2)
[2020-09-15 05:56] LABS: ALANINE AMINOTRANSFERASE 36.3 U/L (0-35); ALBUMIN 3.06 g/dL (3.5-5.0); ALKALINE PHOSPHATASE 61.9 U/L (53-141); BILIRUBIN,TOTAL 0.46 mg/dL (0.2-1.3); BLOOD UREA NITROGEN 20.9 mg/dL (7-17); CALCIUM 8.44 mg/dL (8.4-10.2); CARBON DIOXIDE 33.1 mmol/L (22-30.0); CHLORIDE 97.2 mmol/L (98-107); CREATININE 0.5 mg/dL (0.60-1.30); GLUCOSE 250.9 mg/dL (74-106); POTASSIUM 3.32 mmol/L (3.5-5.1); PROTHROMBIN TIME 29.8 SEC (9.3-11.0); SODIUM 134.3 mmol/L (134.5-145); TOTAL PROTEIN 5.84 g/dL (6.3-8.2)
[2020-09-15] MEDS: HUMULIN R SUBCUT PRN ×2 (06:00→11:40)
[2020-09-15 06:09] VITALS: BP 137/69
[2020-09-15] MEDS: MUCINEX PO SCH (08:13)
[2020-09-15] MEDS: LEXAPRO PO SCH (08:13)
[2020-09-15] MEDS: CALAN SR PO SCH (08:13)
[2020-09-15] MEDS: K-DUR PO SCH (08:13)
[2020-09-15] MEDS: LANOXIN PO SCH (08:14)
[2020-09-15] MEDS: NORCO 10-325 PO SCH (08:14)
[2020-09-15] MEDS: LEVEMIR SUBCUT SCH (08:15)
[2020-09-15] MEDS ORDERED: KEFLEX PO STA (11:23)
--- NOTE | 2020-09-16 12:35 | PN ---
DATE OF SERVICE: 09/14/20 SUBJECTIVE: 85-year-old white female hospitalized with acute pneumonitis/bronchitis. The patient is doing a lot better. She wants to go home. REVIEW OF SYSTEMS: CONSTITUTIONAL: No night sweats. No fatigue, malaise, lethargy. No fever or chills. HEENT: Eyes: No visual changes. No eye pain. No eye discharge. ENT: No runny nose. No epistaxis. No sinus pain. No sore throat. No odynophagia. No congestion. RESPIRATORY: No cough, no congestion. No hemoptysis. No shortness of breath. CARDIOVASCULAR: No angina symptoms. No CHF symptoms. No atypical chest pain for CAD. No palpitations. No PND. No orthopnea. GASTROINTESTINAL: No abdominal pain. No nausea or vomiting. No diarrhea or constipation. No hematemesis. No hematochezia. GENITOURINARY: No urgency. No frequency. No dysuria. No hematuria. No obstructive symptoms. No discharge. No pain. No significant abnormal bleeding. MUSCULOSKELETAL: No musculoskeletal pain; no joint swelling. NEUROLOGICAL: No headache. No neck pain. No syncope. No seizures. No dizziness. PSYCHIATRIC: Not anxious. No depression. No suicidal thoughts. No homicidal thoughts. SKIN: No rash. No lesions. No wounds. ENDOCRINE: No unexplained weight loss. No weight gain. HEMATOLOGIC/LYMPHATIC: No anemia. No purpura. No petechiae. No prolonged or excessive bleeding. No palpable lymph nodes. PHYSICAL EXAMINATION: VITAL SIGNS: Temperature 97.4, pulse 94, respiratory rate 20, blood pressure 146/66, pulse ox 96%. HEENT: Head normocephalic, atraumatic. Eyes: Extraocular muscles are intact. Pupils are equal, round and reactive to light and accommodation. Ears: No lesions. Nose appeared normal. Throat: No exudate or erythema. NECK: Supple. No JVD, no carotid bruit. No lymphadenopathy or thyromegaly. LUNGS: Decreased breath sounds but clear to auscultation. Percussion note normal. Chest symmetrical. HEART: S1, S2, no S3. No murmurs. No cyanosis or clubbing. No ascites. Pulses: Dorsalis pedis and posterior tibial pulses +1 to +2 bilaterally. ABDOMEN: Soft. Nontender. Bowel sounds active. No CVA tenderness. No mass felt. EXTREMITIES: No edema. Full range of motion of all extremities, equal. NEUROLOGIC: No focal deficit. Cranial nerves II through XII are grossly intact. No headache, no double vision or headache. SKIN: Not dry. Intact. Turgor - normal. LYMPHATIC: No palpable lymph nodes/no lymphedema. MUSCULOSKELETAL: Normal joints with no swelling. Muscle tone is normal. LABS: Hemoglobin 12.9, hematocrit 38, WBC 10,000, normal differential. Creatinine 0.4, BUN 17, potassium 3.3. ASSESSMENT: 1. Pneumonitis which seems to be Klebsiella by sputum. Seems to be sensitive to Ceftriaxone. PLAN: 1. Continue Keflex. 2. Continue Prednisone. 3. The patient is strongly advised to quit smoking. Also advised to join pulmonary or cardiac rehab. The patient is noncompliant of medications, lifestyle. PROGNOSIS: Poor. CONDITION: Improving/Stable for now. TIME SPENT: More than 30 minutes. Plan and coordination of the patient's care discussed in the presence of nurse. STEFANO
--- NOTE | 2020-09-16 13:12 | PN ---
DATE OF SERVICE: 09/15/20 SUBJECTIVE: 85-year-old white female hospitalized with acute pneumonitis/bronchitis which was Klebsiella. The patient is being treated with Cephalosporin and antibiotics. The patient is feeling a lot better. She wants to go home. REVIEW OF SYSTEMS: CONSTITUTIONAL: No night sweats. No fatigue, malaise, lethargy. No fever or chills. HEENT: Eyes: No visual changes. No eye pain. No eye discharge. ENT: No runny nose. No epistaxis. No sinus pain. No sore throat. No odynophagia. No congestion. RESPIRATORY: No cough, no congestion. No hemoptysis. No shortness of breath. CARDIOVASCULAR: No angina symptoms. No CHF symptoms. No atypical chest pain for CAD. No palpitations. No PND. No orthopnea. GASTROINTESTINAL: No abdominal pain. No nausea or vomiting. No diarrhea or constipation. No hematemesis. No hematochezia. GENITOURINARY: No urgency. No frequency. No dysuria. No hematuria. No obstructive symptoms. No discharge. No pain. No significant abnormal bleeding. MUSCULOSKELETAL: No musculoskeletal pain; no joint swelling. NEUROLOGICAL: No headache. No neck pain. No syncope. No seizures. No dizziness. PSYCHIATRIC: Not anxious. No depression. No suicidal thoughts. No homicidal thoughts. SKIN: No rash. No lesions. No wounds. ENDOCRINE: No unexplained weight loss. No weight gain. HEMATOLOGIC/LYMPHATIC: No anemia. No purpura. No petechiae. No prolonged or excessive bleeding. No palpable lymph nodes. PHYSICAL EXAMINATION: VITAL SIGNS: Temperature 97.6, pulse 86, respirations 16, blood pressure 137/69, pulse ox 97%. HEENT: Head normocephalic, atraumatic. Eyes: Extraocular muscles are intact. Pupils are equal, round and reactive to light and accommodation. Ears: No lesions. Nose appeared normal. Throat: No exudate or erythema. NECK: Supple. No JVD, no carotid bruit. No lymphadenopathy or thyromegaly. LUNGS: Decreased breath sounds but clear to auscultation. Percussion note normal. Chest symmetrical. HEART: S1, S2, no S3. No murmurs. No cyanosis or clubbing. No ascites. Pulses: Dorsalis pedis and posterior tibial pulses +1 to +2 bilaterally. ABDOMEN: Soft. Nontender. Bowel sounds active. No CVA tenderness. No mass felt. EXTREMITIES: No edema. Full range of motion of all extremities, equal. NEUROLOGIC: No focal deficit. Cranial nerves II through XII are grossly intact. No headache, no double vision or headache. SKIN: Not dry. Intact. Turgor - normal. LYMPHATIC: No palpable lymph nodes/no lymphedema. MUSCULOSKELETAL: Normal joints with no swelling. Muscle tone is normal. ASSESSMENT: 1. ACUTE PNEUMONITIS/BRONCHITIS. 2. CHRONIC LUNG DISEASE. 3. CORONARY ARTERY BYPASS SURGERY. PLAN: 1. Continue antibiotics, Keflex, Prednisone. 2. Will be discharged. 3. Advised to quit smoking. 4. Continue the rest of the medications as before. The patient's daughter is in the room. She is going to take the patient home. Covid-19 precautions discussed. The patient is going to be seen this coming a.m., four days from now as an outpatient. TIME SPENT: More than 30 minutes. Plan and coordination of the patient's care discussed in the presence of nurse. STEFANO
--- NOTE | 2020-09-17 11:34 | DS ---
DATE OF SERVICE: 09/15/20 FINAL DIAGNOSIS: 1. ACUTE BRONCHITIS/PNEUMONITIS, KLEBSIELLA ORGANISM 2. SEVERE CHRONIC LUNG DISEASE 3. CORONARY ARTERY BYPASS SURGERY 4. DIABETES MELLITUS 5. ATHEROSCLEROSIS 6. HYPERTENSION 7. DYSLIPIDEMIA 8. SEVERE CHRONIC LUNG DISEASE WITH HISTORY OF SMOKING DISCHARGE INSTRUCTIONS: Followup appointment with Dr. Boyce in his office on September at 10 a.m. MEDICATIONS AT DISCHARGE: Continue Simvastatin Verapamil Digoxin Warfarin Budesonide (Pulmicort) Lexapro Insulin Xanax Lasix [place] NEW PRESCRIPTIONS: Cephalexin 500 mg p.o. t.i.d. Prednisone 10 mg p.o. daily DISCONTINUED MEDICATIONS: Furosemide 20 mg p.o. daily p.r.n. DIET INSTRUCTIONS: Heart Healthy diet. ACTIVITY: The patient to resume activities as tolerated. SMOKING: Smoking cessation advised. DISEASE SPECIFIC EDUCATION: Dyspnea Shortness of breath Advised to quit smoking Patient and family education for fall prevention HOSPITAL COURSE: 85-year-old white female hospitalized with acute bronchitis/pneumonitis. The patient was barely able to walk. Her appetite was very poor. She was treated in the hospital with IV antibiotics, steroids and nebs treatment. The patient's condition improved. She was given Rocephin and Zithromax. The sputum grew Klebsiella sensitive to Cephalosporins. The patient's hydration status improved. Her appetite improved. Covid-19 test was negative. At the time of discharge, the patient was up and about feeling a lot better. Again, advised to quit smoking. Her lungs have end-stage COPD. She had coronary artery bypass surgery and generalized atherosclerosis. The patient has poor prognosis. She is DNR. The patient's daughter was present in the room and all of this was discussed. The patient is to see me back on , which is 3 to 4 days from now, in the morning at 10 a.m. LABS: Hemoglobin 13.0, hematocrit 38.9, WBC 10,000, normal differential. Creatinine 0.5, BUN 20, potassium 3.3. TIME SPENT: More than 60 minutes. MTDD
--- NOTE | 2020-09-17 11:47 | PN ---
BILLING 09/10/20 ADMISSION DAY LEVEL 5 09/11/20 INTERMEDIATE 09/12/20 INTERMEDIATE 09/13/20 INTERMEDIATE 09/14/20 INTERMEDIATE 09/15/20 DISCHARGE DAY MTDD
== END 2020-09-15 12:55 | disposition home or self-care (01) | DRG 868 ==
LOC: MEDSURG B 11:33 → SCU 13:12 → MEDSURG B 09-11 15:04
PROVIDERS: ADMIT Internal Medicine; ATTEND Internal Medicine

== ENCOUNTER 2021-04-14 11:15 | Inpatient (IN) ==
[2021-04-14 11:29] LABS: BORDETELLA PARAPERTUSSIS (PCR) NOT DETECTED (NOT DETECT); BORDETELLA PERTUSSIS (PCR) NOT DETECTED (NOT DETECT); CHLAMYDIA PNEUMONIAE (PCR) NOT DETECTED (NOT DETECT); CORONAVIRUS 229E (PCR) NOT DETECTED (NOT DETECT); CORONAVIRUS HKU1 (PCR) NOT DETECTED (NOT DETECT); CORONAVIRUS NL63 (PCR) NOT DETECTED (NOT DETECT); CORONAVIRUS OC43 (PCR) NOT DETECTED (NOT DETECT); HUMAN METAPNEUMOVIRUS (PCR) NOT DETECTED (NOT DETECT); HUMAN RHINOVIRUS/ENTEROV (PCR) NOT DETECTED (NOT DETECT); INFLUENZA B (PCR) NOT DETECTED (NOT DETECT); MYCOPLASMA PNEUMONIAE (PCR) NOT DETECTED (NOT DETECT); PARAINFLUENZA VIRUS 1 (PCR) NOT DETECTED (NOT DETECT); PARAINFLUENZA VIRUS 2 (PCR) NOT DETECTED (NOT DETECT); PARAINFLUENZA VIRUS 3 (PCR) NOT DETECTED (NOT DETECT); PARAINFLUENZA VIRUS 4 (PCR) NOT DETECTED (NOT DETECT); RESPIRATORY SYNCYTIAL V (PCR) NOT DETECTED (NOT DETECT); SARS_COV_2 (PCR) NOT DETECTED (NOT DETECT)
[2021-04-14 12:17] LABS: ADENOVIRUS (PCR) NOT DETECTED (NOT DETECT)
[2021-04-14] MEDS ORDERED: TYLENOL PO PRN (13:05)
[2021-04-14] MEDS ORDERED: ATROPINE SULFATE PFS IVP PRN (13:05)
[2021-04-14] MEDS ORDERED: NITROSTAT SL PRN (13:05)
[2021-04-14 13:12] LABS: ABG O2 HGB 89.3 % (95-100); ABG PH 7.47 (7.35-7.45); BEecf 9.1 (-2.0-3.0); COHb 4.1 (0.5-1.5); HCO3 32.8 (21-28); MetHb 0.7 (0-1.5); TCO2 34.2 (19-24); sO2 93.2 % (94-98); tHb 11.2 g/dl (11.7-17.4)
[2021-04-14 13:23] LABS: BASOPHILS % (AUTO) 0.2 % (0.0-3.0); EOSINOPHILS % (AUTO) 0.1 % (0.0-7.0); HEMOGLOBIN 11.8 g/dl (12.0-16.0); IMMATURE GRANULOCYTE # (AUTO) 0.1 (0.0-1.0); IMMATURE GRANULOCYTE % (AUTO) 0.6 % (0.0-5.0); LYMPHOCYTES # (AUTO) 1.1 K/uL (0.60-3.4); LYMPHOCYTES % (AUTO) 8.3 (10.0-50.0); MEAN CORPUSCULAR HEMOGLOBIN 31.9 pg (27.0-31.0); MEAN CORPUSCULAR HGB CONC 33.7 (31.8-35.4); MEAN CORPUSCULAR VOLUME 94.6 fl (81.0-99.0); MONOCYTES # (AUTO) 0.7 K/uL (0.4-2.0); MONOCYTES % (AUTO) 5.6 (0-10); NEUTROPHILS # (AUTO) 11.1 K/ul (2.0-6.9); NEUTROPHILS % (AUTO) 85.2 % (42.2-75.2); PLATELET COUNT 273 10^3/uL (140-440); RDW COEFFICIENT OF VARIATION 12.7 % (11.6-14.8); WHITE BLOOD COUNT 13.07 K/ul (4.6-10.2)
[2021-04-14 13:26] VITALS: BMI 17.2
[2021-04-14] MEDS ORDERED: SODIUM CHLORIDE 1,000 ML IV SCH (13:30)
[2021-04-14 13:35] LABS: ALANINE AMINOTRANSFERASE 27.3 U/L (0-35); ALBUMIN 3.48 g/dL (3.5-5.0); ALKALINE PHOSPHATASE 105.3 U/L (53-141); ASPARTATE AMINO TRANSFERASE 35.9 U/L (14-36); BILIRUBIN,TOTAL 0.49 mg/dL (0.2-1.3); BLOOD UREA NITROGEN 14.6 mg/dL (7-17); CALCIUM 8.88 mg/dL (8.4-10.2); CARBON DIOXIDE 32.8 mmol/L (22-30.0); CHLORIDE 97.1 mmol/L (98-107); CREATINE KINASE 93.6 U/L (30-135); GLUCOSE 197.3 mg/dL (74-106); POTASSIUM 4.65 mmol/L (3.5-5.1); PROTHROMBIN TIME 36.8 SEC (9.3-11.0); SODIUM 132.3 mmol/L (134.5-145); TOTAL PROTEIN 6.34 g/dL (6.3-8.2)
[2021-04-14 13:42] LABS: BILIRUBIN,URINE Negative (NEGATIVE); CLARITY,URINE Cloudy (CLEAR); COLOR,URINE Yellow (YELLOW); GLUCOSE, URINE (UA) Negative (NEGATIVE); KETONES,URINE Negative (NEGATIVE); LEUKOCYTE ESTERASE ,URINE Trace (NEGATIVE); NITRITE,URINE Negative (NEGATIVE); PH,URINE 5.5 (5-9); PROTEIN,URINE Trace (NEGATIVE); URINE, BLOOD Trace-intact (NEGATIVE)
[2021-04-14 13:44] LABS: SQUAMOUS EPITHELIAL CELL,UR NOT PRESENT (0-5)
[2021-04-14] MEDS: ROCEPHIN 1 GM/50 ML D5W 1 GM/50 ML BAG IV SCH (13:44)
[2021-04-14] MEDS: SOLU-CORTEF 250 MG IVP SCH ×2 (13:44→20:46)
[2021-04-14 13:50] LABS: TROPONIN I < 0.012 ng/ml (0.0000-0.120)
[2021-04-14 13:53] LABS: BACTERIA,URINE 4+ (NOT PRESENT); URINE RBC, MICROSCOPIC 0-2 (0-2)
[2021-04-14] MEDS ORDERED: NEURONTIN PO PRN (13:57)
[2021-04-14] MEDS: DUONEB NEB SCH ×2 (14:16→19:50)
[2021-04-14] MEDS: NORCO 5-325 PO PRN (14:26)
--- NOTE | 2021-04-14 15:27 | DI ---
EXAM: Chest one view, frontal view only. HISTORY: Shortness of breath. COMPARISON: 09/10/2020. FINDINGS: Sternotomy wires noted. The heart size normal. Bronchial thickening and reticulonodular opacities in both lungs again noted. Right basilar calcified nodule is stable. Difficult to exclude a nodular opacity in the left perihilar region. No pleural effusion or pneumothorax detected. Osse ous structures intact. IMPRESSION: Question left perihilar pneumonia. Chronic airways inflammation. Follow-up recommended.
[2021-04-14] MEDS ORDERED: ZOCOR PO SCH (17:00)
[2021-04-14] MEDS: ZOCOR PO SCH (17:18)
[2021-04-14] MEDS: INVANZ 1 GM in SODIUM CHLORIDE 50 ML IV SCH (17:18)
[2021-04-14] MEDS: PULMICORT 1 MG/2 ML NEB SCH (19:50)
[2021-04-14] MEDS: HUMULIN R SUBCUT PRN (20:39)
[2021-04-14] MEDS: CALAN SR PO SCH (20:39)
[2021-04-14] MEDS ORDERED: CALAN SR PO SCH (21:00)
[2021-04-14] MEDS ORDERED: NEURONTIN PO SCH (21:00)
[2021-04-14] MEDS: XANAX PO PRN (21:23)
[2021-04-14 21:34] LABS: CREATINE KINASE 77.9 U/L (30-135)
[2021-04-14 21:47] LABS: TROPONIN I < 0.012 ng/ml (0.0000-0.120)
[2021-04-15] MEDS: DUONEB NEB SCH ×3 (04:40→19:38)
[2021-04-15] MEDS: PULMICORT 1 MG/2 ML NEB SCH ×2 (04:40→19:38)
[2021-04-15 05:05] LABS: BASOPHILS % (AUTO) 0.3 % (0.0-3.0); HEMATOCRIT 32.2 % (37.0-47.0); IMMATURE GRANULOCYTE # (AUTO) 0.1 (0.0-1.0); IMMATURE GRANULOCYTE % (AUTO) 0.8 % (0.0-5.0); LYMPHOCYTES # (AUTO) 0.9 K/uL (0.60-3.4); LYMPHOCYTES % (AUTO) 12.4 (10.0-50.0); MEAN CORPUSCULAR HEMOGLOBIN 32.4 pg (27.0-31.0); MEAN CORPUSCULAR HGB CONC 34.2 (31.8-35.4); MEAN CORPUSCULAR VOLUME 94.7 fl (81.0-99.0); MONOCYTES # (AUTO) 0.3 K/uL (0.4-2.0); MONOCYTES % (AUTO) 4.4 (0-10); NEUTROPHILS # (AUTO) 6.2 K/ul (2.0-6.9); NEUTROPHILS % (AUTO) 82.1 % (42.2-75.2); PLATELET COUNT 266 10^3/uL (140-440); RDW COEFFICIENT OF VARIATION 12.6 % (11.6-14.8)
[2021-04-15 05:25] LABS: ALANINE AMINOTRANSFERASE 22.5 U/L (0-35); ALBUMIN 2.98 g/dL (3.5-5.0); ALKALINE PHOSPHATASE 84.6 U/L (53-141); ASPARTATE AMINO TRANSFERASE 25.7 U/L (14-36); BILIRUBIN,TOTAL 0.28 mg/dL (0.2-1.3); BLOOD UREA NITROGEN 15.2 mg/dL (7-17); CALCIUM 8.33 mg/dL (8.4-10.2); CARBON DIOXIDE 32.1 mmol/L (22-30.0); CHLORIDE 102.3 mmol/L (98-107); CREATININE 0.51 mg/dL (0.60-1.30); GLUCOSE 153.8 mg/dL (74-106); POTASSIUM 4.31 mmol/L (3.5-5.1); SODIUM 136.1 mmol/L (134.5-145); TOTAL PROTEIN 5.58 g/dL (6.3-8.2)
[2021-04-15] MEDS: SOLU-CORTEF 250 MG IVP SCH ×3 (05:35→20:47)
[2021-04-15] MEDS: HUMULIN R SUBCUT PRN ×4 (06:07→20:13)
[2021-04-15] MEDS ORDERED: LASIX TAB PO SCH (06:30)
[2021-04-15] MEDS ORDERED: K-DUR PO SCH (08:30)
[2021-04-15] MEDS: COUMADIN PO SCH (08:42)
--- NOTE | 2021-04-15 08:52 | PCM.PROG ---
Attending Provider: ATTENDING PROVIDER: Dr. SAMUEL BELLO This patient is seen with Lashawn Austin, Nurse Practitioner. DATE OF SERVICE: 04/15/21 SUBJECTIVE: This 86 year old /WHITE F was hospitalized 04/14/21. The patient is resting comfortably. She slept well through the night. Chest x-ray yesterday showed left pneumonitis. Urine culture is pending for UTI. Her labs are stable. Breathing seems to having improved with steroids. INR has improved. REVIEW OF SYSTEMS: CONSTITUTIONAL: No night sweats. No fatigue, malaise, lethargy. No fever or chills. Weakness. HEENT: Eyes: No visual changes. No eye pain. No eye discharge. ENT: No runny nose. No epistaxis. No sinus pain. No odynophagia. No congestion. RESPIRATORY: Cough, no congestion. No hemoptysis. Shortness of breath. CARDIOVASCULAR: No angina symptoms. No CHF symptoms. No atypical chest pain for CAD. No palpitations. No orthopnea.. GASTROINTESTINAL: No abdominal pain. No nausea or vomiting. No diarrhea or constipation. No hematemesis. No hematochezia. GENITOURINARY: No urgency. No frequency. No dysuria. No hematuria. No obstructive symptoms. No discharge. No pain. No significant abnormal bleeding. MUSCULOSKELETAL: No musculoskeletal pain; no joint swelling. NEUROLOGICAL: Awake, alert, oriented to time, place and person. No headache. No neck pain. No syncope. No seizures. No dizziness. PSYCHIATRIC: Not anxious. No depression. No suicidal thoughts. No homicidal thoughts. SKIN: No rash. No lesions. No wounds. ENDOCRINE: No unexplained weight loss. No weight gain. HEMATOLOGIC/LYMPHATIC: No anemia. No purpura. No petechiae. No prolonged or excessive bleeding. No palpable lymph nodes. PHYSICAL EXAMINATION: GENERAL: The patient is awake, alert and oriented, lying in bed in no distress. VITAL SIGNS: Temperature 97.7 F, Pulse 62, Respiratory Rate 18, BP 112/46, Pul se Ox 98% HEENT: Head normocephalic, atraumatic. Eyes: Extraocular muscles are intact. Pupils are equal, round and reactive to light and accommodation. Ears: No lesions. Nose appeared normal. Throat: No exudate or erythema. NECK: Supple. No JVD, no carotid bruit. No lymphadenopathy or thyromegaly. LUNGS: Diminished breath sounds. Faint inspiratory and expiratory wheezing. Clear to auscultation. Percussion note normal. Chest symmetrical. HEART: S1, S2, no S3. No murmurs. No cyanosis or clubbing. No ascites. Pulses: Dorsalis pedis and posterior tibial pulses +1 to +2 both sides. ABDOMEN: Soft. Non-tender. Bowel sounds active. No CVA tenderness. No mass felt. EXTREMITIES: No edema. Full range of motion of all extremities, equal. NEUROLOGIC: No focal deficit. Cranial nerves II through XII are grossly intact. No headache. No double vision. SKIN: Not dry. Intact. Turgor-normal. LYMPHATIC: No palpable lymph nodes/no lymphedema. MUSCULOSKELETAL: Normal joints with no swelling. Muscle tone is normal. LAB REVIEW: 04/15/21 04:20 04/15/21 04:20 04/15/21 04:20: Sodium 136.1, Potassium 4.31, Chloride 102.3, Carbon Dioxide 32.1 H, Anion Gap 6.01, BUN 15.2, Creatinine 0.51 L, Estimated GFR (MDRD) 114.00, BUN/Creatinine Ratio 29.80, Glucose 153.8 H, Calcium 8.33 L, Total Bilirubin 0.28, AST 25.7, ALT 22.5, Alkaline Phosphatase 84.6, Total Protein 5.58 L, Albumin 2.98 L, Globulin 2.60, Albumin/Globulin Ratio 1.14 04/15/21 04:20: PT 32.0 H, INR 2.99 04/15/21 04:20: WBC 7.50 D, RBC 3.40 L, Hgb 11.0 L, Hct 32.2 L, MCV 94.7, MCH 32.4 H, MCHC 34.2, RDW Coeff of [place] 12.6, Plt Count 266, Immature Gran % (Auto) 0.8, Neut % (Auto) 82.1 H, Lymph % (Auto) 12.4, [place] % (Auto) 4.4, Eos % (Auto) 0.0, Baso % (Auto) 0.3, Neut # (Auto) 6.2, Lymph # (Auto) 0.9, [place] # (Auto) 0.3 L, Eos # (Auto) 0.0, Baso # (Auto) 0.0, Immature Gran # (Auto) 0.1 04/14/21 21:19: Total Creatine Kinase 77.9, Troponin I < 0.012 04/14/21 13:35: Urine Color Yellow, Urine Clarity Cloudy, Urine pH 5.5, Ur Specific [place] 1.020, Urine Protein Trace H, Urine Glucose (UA) Negative, Urine Ketones Negative, Urine Blood Trace-intact H, Urine Nitrite Negative, Urine Bilirubin Negative, Urine Urobilinogen 1.0 H, Ur Leukocyte Esterase Trace H, Urine Microscopic RBC 0-2, Urine Microscopic WBC 5-10, Ur Squamous Epith Cells Not present, Urine Bacteria 4+ 04/14/21 13:16: PT 36.8 H, INR 3.43 04/14/21 13:16: Sodium 132.3 L, Potassium 4.65, Chloride 97.1 L, Carbon Dioxide 32.8 H, Anion Gap 7.05, BUN 14.6, Creatinine 0.60, Estimated GFR (MDRD) 95.00, BUN/Creatinine Ratio 24.33, Glucose 197.3 H, Calcium 8.88, Total Bilirubin 0.49, AST 35.9, ALT 27.3, Alkaline Phosphatase 105.3, Total Creatine Kinase 93.6, Troponin I < 0.012, Total Protein 6.34, Albumin 3.48 L, Globulin 2.86, Albumin/Globulin Ratio 1.21 04/14/21 13:16: WBC 13.07 H, RBC 3.70 L, Hgb 11.8 L, Hct 35.0 L, MCV 94.6, MCH 31.9 H, MCHC 33.7, RDW Coeff of [place] 12.7, Plt Count 273, Immature Gran % (Auto) 0.6, Neut % (Auto) 85.2 H, Lymph % (Auto) 8.3 L, [place] % (Auto) 5.6, Eos % (Auto) 0.1, Baso % (Auto) 0.2, Neut # (Auto) 11.1 H, Lymph # (Auto) 1.1, [place] # (Auto) 0.7, Eos # (Auto) 0.0, Baso # (Auto) 0.0, Immature Gran # (Auto) 0.1 04/14/21 13:00: Puncture Site Rb, Base Excess 9.1 H, O2 Saturation 93.2 L, ABG pH 7.47 H, ABG pCO2 45.0, ABG pO2 63.0 L, ABG HCO3 32.8 H, ABG Total CO2 34.2 H, [place]io Test Y, Hemoglobin 0.7, Oxyhemoglobin 89.3 L, Carboxyhemoglobin 4.1 H, Total Hemoglobin 11.2 L, FiO2 % 21.0 04/14/21 11:22: Adenovirus (PCR) Not detected, B. pertussis DNA (PCR) Not detected, B.parapertussis DNA PCR Not detected, C. pneumoniae DNA (PCR) Not detected, Coronavirus OC43 (PCR) Not detected, Coronavirus HKU1 (PCR) Not detected, Coronavirus 229E (PCR) Not detected, Coronavirus NL63 (PCR) Not detected, Human Metapneumovir PCR Not detected, Influenza Type A (PCR) Not detected, Influenza B (RT-PCR) Not detected, M. pneumoniae (PCR) Not detected, Parainfluenza 1 (PCR) Not detected, Parainfluenza 2 (PCR) Not detected, Parainfluenza 3 (PCR) Not detected, Parainfluenza 4 (PCR) Not detected, RSV (PCR) Not detected, Entero/Rhino (PCR) Not detected, SARS-CoV-2 (PCR) Not detected ASSESSMENT: Please see below. 1. UTI, culture pending 2 Acute left pneumonitis 3. Severe COPD 4. Diabetes Mellitus type II 5. Atrial fibrillation 6. Hypercoagulation, improved. PLAN: 1. Hold Coumadin one more day 2. Continue IV steroids and antibiotics. Plan and coordination of the patient's care discussed in the presence of Boring Machine Operator Double End and nurse. SCRIBED BY: Geoffrey GUADALUPE scribed while in presence of service performed by Dr. Bello/Lashawn Austin APRN on 04/15/21 ([id number])
[2021-04-15] MEDS: CALAN SR PO SCH ×2 (08:56→20:08)
[2021-04-15] MEDS: LANOXIN PO SCH (08:57)
[2021-04-15] MEDS: K-DUR PO PRN (08:58)
[2021-04-15] MEDS: MULTIVITAMIN TABLET PO SCH (08:58)
[2021-04-15] MEDS: NORCO 5-325 PO PRN (08:58)
[2021-04-15] MEDS: INVANZ 1 GM in SODIUM CHLORIDE 50 ML IV SCH (08:58)
[2021-04-15] MEDS: LEXAPRO PO SCH (08:58)
[2021-04-15] MEDS ORDERED: MULTIVIT MIN FA LYCOPEN LUTEIN PO SCH (09:00)
[2021-04-15] MEDS: LANTUS SUBCUT SCH ×2 (09:00→20:09)
[2021-04-15] MEDS ORDERED: LANTUS SUBCUT SCH (09:00)
[2021-04-15] MEDS ORDERED: [UNRECOGNIZED DRUG - OTHER] PO SCH (09:00)
[2021-04-15] MEDS: ROCEPHIN 1 GM/50 ML D5W 1 GM/50 ML BAG IV SCH (10:21)
--- NOTE | 2021-04-15 10:42 | HP ---
DATE OF SERVICE: 04/14/21 HISTORY OF PRESENT ILLNESS: 86-year-old female has been in bed for one week feeling tired, nauseated, short of breath, has thick sputum. She cannot walk. PAST MEDICAL HISTORY: Left lower lobe lung cancer COPD Hypertension Diabetes mellitus type 2 Chronic bronchitis Anemia Atrial fibrillation Smoking Pulmonary nodule, left Peripheral arterial disease Coronary artery disease/CABG MENSTRUAL HISTORY: Mammogram 09/21 PAST SURGICAL HISTORY: CABGs Hysterectomy Colonoscopy 05/21 Dr. Maloney REVIEW OF SYSTEMS: CONSTITUTIONAL: Fatigue. No fever. HEENT: Sinus drainage. No sore throat. RESPIRATORY: Cough. No hemoptysis. CARDIOVASCULAR: Shortness of breath. No atypical chest pain for coronary artery disease. No angina, CHF symptoms, or palpitations. GASTROINTESTINAL: No melena or abdominal pain. No GERD. GENITOURINARY: No hematuria, no prostatism, no polyuria. TIRE MAKER: No blackout, no dizziness, no headache, no double vision. Gait: Wheelchair. MUSCULOSKELETAL: Osteoarthritis pain. ENDOCRINE: No weight loss, no weight gain. SKIN: Not dry, no rash. PSYCHIATRIC: Not anxious, no depression, no suicidal thoughts, no homicidal thoughts. SOCIAL HISTORY: Smoker. . Three children. Retired. No alcohol use. FAMILY HISTORY: Mother and father . Brother(s) times four. Sister(s) times four. MEDICATIONS: [employer] 5/325 mg t.i.d. Duoneb q.i.d. Xanax 0.25 mg h.s. Pulmicort neb b.i.d. Xanax 0.25 mg h.s. Lanoxin 125 mcg p.o. daily Lexapro 10 mg daily Lasix 20 mg daily Neurontin 300 mg b.i.d. Lantus 20 mg daily K-Dur 20 mg daily Zocor 40 mg daily Calan SR 180 mg b.i.d. Coumadin 4 mg daily 02 2L/NC h.s. p.r.n. Prednisone 5 mg daily ALLERGIES: TRICOR, 02/06/21 KEFLEX (SICK) PHYSICAL EXAMINATION: V/S: Pulse 74, BP 110/48, temperature 98.5, 02 sat 95%. Weight: Unable to weigh. GENERAL APPEARANCE: Oriented times three. Pale. HEENT: Normal. NECK: No JVP, no bruits. RESPIRATORY: Severely diminished breath sounds with bilateral inspiratory and expiratory wheeze. CARDIOVASCULAR: Irregular. S1, S2, no S3, no murmur. No cyanosis, clubbing. No ascites. GI/ABDOMEN: No tenderness. Bowel sounds are active. EXTREMITIES: No edema, pulses +1, equal. TIRE MAKER: Deep tendon reflexes, sensory, motor and gait all normal. RECTAL/PELVIC: Colonoscopy - Dr. Maloney 2013. ASSESSMENT: 1. Acute COPD exacerbation 2. Shortness of breath 3. Generalized weakness 4. History of left hand hematoma with removal 11/28 - Dr. Steinberg 5. Diabetes mellitus Type 2, A1C 8.0 02/26 6. Atrial fibrillation - Coumadin 7. COPD, steroid dependent 8. Left lower lobe mass (Cancer) Dr. Mckenna/Dr. Vazquez, status post radiation 9. Recurrent urinary tract infections 10. Recurrent falls 11. Chronic bronchitis 12. Leg edema 13. Right knee osteoarthritis 14. Generalized anxiety disorder 15. Anemia 16. Peripheral arterial disease 17. Coronary artery disease 18. Coronary artery bypass grafting 1997 19. Osteoporosis 20. Dyslipidemia 21. Atrial fibrillation 22. Neuropathy PLAN: 1. Admit with routine telemetry orders. 2. CBC, CMP, INR now and daily. 3. Urinalysis. 4. Chest x-ray. 5. Continue home medications. 6. Sliding scale for diabetes mellitus type 2. 7. Solu-Cortef 125 mg IV q.8hr. 8. Hold p.o. Prednisone. 9. 02 @ 1 to 2L NC. 10. ABG times one now on room air. 11. Rocephin 1 gm IV daily. 12. NS IV @ 75 cc/hr times one liter. 13. Regular diet. 14. If Covid negative start Duoneb t.i.d. Min[place]. 15. Pulmicort neb b.i.d./mg TIME SPENT: More than 70 minutes. MTDD
[2021-04-15 17:34] LABS: BILIRUBIN,URINE Negative (NEGATIVE); CLARITY,URINE Clear (CLEAR); COLOR,URINE Yellow (YELLOW); KETONES,URINE Negative (NEGATIVE); LEUKOCYTE ESTERASE ,URINE Negative (NEGATIVE); NITRITE,URINE Negative (NEGATIVE); PROTEIN,URINE Negative (NEGATIVE); URINE, BLOOD Negative (NEGATIVE); UROBILINOGEN,URINE 0.2 (0.2)
[2021-04-15 17:35] LABS: GLUCOSE, URINE (UA) 3+ (NEGATIVE)
[2021-04-15] MEDS: ZOCOR PO SCH (17:59)
[2021-04-15] MEDS: XANAX PO PRN (20:08)
[2021-04-16] MEDS: DUONEB NEB SCH ×3 (04:45→19:55)
[2021-04-16] MEDS: PULMICORT 1 MG/2 ML NEB SCH ×2 (04:45→19:55)
[2021-04-16] MEDS: SOLU-CORTEF 250 MG IVP SCH ×3 (05:08→21:32)
[2021-04-16 05:28] LABS: BASOPHILS % (AUTO) 0.1 % (0.0-3.0); HEMATOCRIT 31.1 % (37.0-47.0); HEMOGLOBIN 10.7 g/dl (12.0-16.0); IMMATURE GRANULOCYTE # (AUTO) 0.1 (0.0-1.0); IMMATURE GRANULOCYTE % (AUTO) 0.9 % (0.0-5.0); LYMPHOCYTES # (AUTO) 1.1 K/uL (0.60-3.4); LYMPHOCYTES % (AUTO) 10.5 (10.0-50.0); MEAN CORPUSCULAR HEMOGLOBIN 32.3 pg (27.0-31.0); MEAN CORPUSCULAR HGB CONC 34.4 (31.8-35.4); MONOCYTES # (AUTO) 0.3 K/uL (0.4-2.0); MONOCYTES % (AUTO) 3.2 (0-10); NEUTROPHILS % (AUTO) 85.3 % (42.2-75.2); PLATELET COUNT 282 10^3/uL (140-440); RDW COEFFICIENT OF VARIATION 12.7 % (11.6-14.8); RED BLOOD COUNT 3.31 10^6/ul (4.20-5.40)
[2021-04-16 05:39] LABS: PROTHROMBIN TIME 21.8 SEC (9.3-11.0)
[2021-04-16 05:42] LABS: ALBUMIN 3.17 g/dL (3.5-5.0); ALKALINE PHOSPHATASE 90.7 U/L (53-141); ASPARTATE AMINO TRANSFERASE 27.2 U/L (14-36); BILIRUBIN,TOTAL 0.3 mg/dL (0.2-1.3); BLOOD UREA NITROGEN 21.7 mg/dL (7-17); CALCIUM 8.55 mg/dL (8.4-10.2); CARBON DIOXIDE 31.5 mmol/L (22-30.0); CHLORIDE 100.2 mmol/L (98-107); CREATININE 0.61 mg/dL (0.60-1.30); POTASSIUM 3.76 mmol/L (3.5-5.1); SODIUM 135.2 mmol/L (134.5-145); TOTAL PROTEIN 5.73 g/dL (6.3-8.2)
[2021-04-16] MEDS: NORCO 5-325 PO PRN ×2 (05:42→14:07)
[2021-04-16] MEDS: HUMULIN R SUBCUT PRN ×4 (05:43→20:29)
[2021-04-16] MEDS ORDERED: LASIX TAB PO PRN (06:00)
[2021-04-16] MEDS: ROCEPHIN 1 GM/50 ML D5W 1 GM/50 ML BAG IV SCH (08:25)
[2021-04-16] MEDS: MULTIVITAMIN TABLET PO SCH (08:26)
[2021-04-16] MEDS: LEXAPRO PO SCH (08:26)
[2021-04-16] MEDS: LANOXIN PO SCH (08:26)
[2021-04-16] MEDS: CALAN SR PO SCH ×2 (08:26→20:29)
[2021-04-16] MEDS: LANTUS SUBCUT SCH ×2 (08:27→20:35)
[2021-04-16] MEDS: INVANZ 1 GM in SODIUM CHLORIDE 50 ML IV SCH (08:59)
--- NOTE | 2021-04-16 10:52 | PN ---
DATE OF SERVICE: 04/14/2021 SUBJECTIVE: The patient was seen and examined with the Nurse Practitioner in the clinic and hospitalized because of patient's weakness, shortness of breath on minimal exertion. She has left sided conjunctival hemorrhage. The patient was checked out in the ER and INR was elevated. Coumadin is on hold. The patient is going to have routine workup with the telemetry orders with the serial markers. Cardiac enzymes and isoenzymes and she is going to be given fluids and NEBS. The patient is a heavy smoker and has continued to smoke. She has coronary artery disease and end stage chronic lung disease. PROGNOSIS: POOR. TIME SPENT: More than 30 minutes. Plan and coordination of the patient's care discussed in the presence of nurse. STEFANO
[2021-04-16] MEDS: MEGACE PO SCH (12:44)
[2021-04-16] MEDS: COUMADIN PO SCH (16:35)
[2021-04-16] MEDS: ZOCOR PO SCH (16:35)
[2021-04-16] MEDS: XANAX PO PRN (20:29)
[2021-04-17] MEDS: SOLU-CORTEF 250 MG IVP SCH ×3 (04:08→20:09)
[2021-04-17] MEDS: DUONEB NEB SCH ×3 (04:45→20:04)
[2021-04-17] MEDS: PULMICORT 1 MG/2 ML NEB SCH ×2 (04:45→20:04)
[2021-04-17 05:15] LABS: BASOPHILS % (AUTO) 0.1 % (0.0-3.0); HEMATOCRIT 32.3 % (37.0-47.0); HEMOGLOBIN 10.8 g/dl (12.0-16.0); IMMATURE GRANULOCYTE # (AUTO) 0.1 (0.0-1.0); LYMPHOCYTES # (AUTO) 0.7 K/uL (0.60-3.4); LYMPHOCYTES % (AUTO) 7.1 (10.0-50.0); MEAN CORPUSCULAR HEMOGLOBIN 31.7 pg (27.0-31.0); MEAN CORPUSCULAR HGB CONC 33.4 (31.8-35.4); MEAN CORPUSCULAR VOLUME 94.7 fl (81.0-99.0); MONOCYTES # (AUTO) 0.6 K/uL (0.4-2.0); MONOCYTES % (AUTO) 5.4 (0-10); NEUTROPHILS # (AUTO) 9.1 K/ul (2.0-6.9); NEUTROPHILS % (AUTO) 86.4 % (42.2-75.2); PLATELET COUNT 271 10^3/uL (140-440); RDW COEFFICIENT OF VARIATION 12.5 % (11.6-14.8); RED BLOOD COUNT 3.41 10^6/ul (4.20-5.40); WHITE BLOOD COUNT 10.47 K/ul (4.6-10.2)
[2021-04-17 05:25] LABS: PROTHROMBIN TIME 19.5 SEC (9.3-11.0)
[2021-04-17 05:31] LABS: ALANINE AMINOTRANSFERASE 23.3 U/L (0-35); ALBUMIN 3.07 g/dL (3.5-5.0); ALKALINE PHOSPHATASE 84.9 U/L (53-141); ASPARTATE AMINO TRANSFERASE 27.1 U/L (14-36); BILIRUBIN,TOTAL 0.26 mg/dL (0.2-1.3); BLOOD UREA NITROGEN 24.1 mg/dL (7-17); CALCIUM 8.48 mg/dL (8.4-10.2); CARBON DIOXIDE 34.2 mmol/L (22-30.0); CHLORIDE 99.5 mmol/L (98-107); CREATININE 0.56 mg/dL (0.60-1.30); GLUCOSE 266.5 mg/dL (74-106); POTASSIUM 3.45 mmol/L (3.5-5.1); TOTAL PROTEIN 5.58 g/dL (6.3-8.2)
[2021-04-17] MEDS: HUMULIN R SUBCUT PRN ×3 (06:10→20:13)
[2021-04-17] MEDS: NORCO 5-325 PO PRN ×2 (07:16→14:31)
--- NOTE | 2021-04-17 09:04 | PN ---
DATE OF SERVICE: 04/15/2021 SUBJECTIVE: The patient is feeling much better. She was seen and examined with the Nurse Practitioner. Breathing somewhat better. Still weak. Needs to get some strength back. Strongly advised to quit smoking. The patient has end stage COPD and Cardiovascular disease is frail and underweight. Discussed the dire to gain weight. TIME SPENT: More than 30 minutes. Plan and coordination of the patient's care discussed in the presence of nurse. STEFANO
--- NOTE | 2021-04-17 09:13 | PN ---
DATE OF SERVICE: 04/16/2021 SUBJECTIVE: 86 year old white female hospitalized with acute COPD exacerbation. The patient has weakness inability to walk. The patient's problem is COPD and coronary artery disease with history of heavy smoking. She has continued to smoke. She weighs 109 pounds and BMI of 17. She has poor appetite and doesn't have good nutrition. She is inactive. Combination of all that has made her short of breath with cough, congestion and weakness to the point where she is practically not able to walk. After two days in the hospital she is feeling better. She is able to walk today, less short of breath. Daughter was in the room and she was happy with the patient's progress. REVIEW OF SYSTEMS: CONSTITUTIONAL: No night sweats. Fatigue. No fever or chills. Weakness. HEENT: Eyes: No visual changes. No eye pain. No eye discharge. ENT: No runny nose. No epistaxis. No sinus pain. No sore throat. No odynophagia. No congestion. RESPIRATORY: No cough, no congestion. No hemoptysis. No shortness of breath. CARDIOVASCULAR: No angina symptoms. No CHF symptoms. No atypical chest pain for CAD. No palpitations. No PND. No orthopnea. GASTROINTESTINAL: No abdominal pain. No nausea or vomiting. No diarrhea or constipation. No hematemesis. No hematochezia. GENITOURINARY: No urgency. No frequency. No dysuria. No hematuria. No obstructive symptoms. No discharge. No pain. No significant abnormal bleeding. MUSCULOSKELETAL: No musculoskeletal pain; no joint swelling. NEUROLOGICAL: No headache. No neck pain. No syncope. No seizures. No dizziness. PSYCHIATRIC: Not anxious. No depression. No suicidal thoughts. No homicidal thoughts. SKIN: No rash. No lesions. No wounds. ENDOCRINE: No unexplained weight loss. No weight gain. HEMATOLOGIC/LYMPHATIC: No anemia. No purpura. No petechiae. No prolonged or excessive bleeding. No palpable lymph nodes. PHYSICAL EXAMINATION: VITAL SIGNS: Temperature 97.6, pulse 80, respiratory rate 16, blood pressure 116/48 and pulse ox 100% with 2 liters. HEENT: Head normocephalic, atraumatic. Eyes: Extraocular muscles are intact. Pupils are equal, round and reactive to light and accommodation. Ears: No lesions. Nose appeared normal. Throat: No exudate or erythema. NECK: Supple. No JVD, no carotid bruit. No lymphadenopathy or thyromegaly. LUNGS: Decreased breath sounds. Clear to auscultation. Percussion note normal. Chest symmetrical. HEART: S1, S2, no S3. No murmurs. No cyanosis or clubbing. No ascites. Pulses: Dorsalis pedis and posterior tibial pulses +1 to +2 bilaterally. ABDOMEN: Soft. Nontender. Bowel sounds active. No CVA tenderness. No mass felt. Emaciated. EXTREMITIES: No edema. Full range of motion of all extremities, equal. NEUROLOGIC: No focal deficit. Cranial nerves II through XII are grossly intact. No headache. No double vision. SKIN: Not dry. Intact. Turgor - normal. LYMPHATIC: No palpable lymph nodes/no lymphedema. MUSCULOSKELETAL: Normal joints with no swelling. Muscle tone is normal. LABS: Hgb 10.7, hct 31, WBC 10,000 normal differential, creatinine 0.6, BUN 41, potassium 3.7 ASSESSMENT: 1. Acute exacerbation of COPD with end stage COPD with continued smoking 2. End stage Coronary artery disease with coronary bypass surgery PLAN: 1. Continue steroids, NEBS and antibiotics 2. Encourage patient to eat 3. Start Megace 4. The patient is on sliding scale with coverage. TIME SPENT: More than 30 minutes. Plan and coordination of the patient's care discussed in the presence of nurse. STEFANO
[2021-04-17] MEDS: CALAN SR PO SCH ×2 (09:23→20:13)
[2021-04-17] MEDS: MEGACE PO SCH (09:23)
[2021-04-17] MEDS: LANOXIN PO SCH (09:23)
[2021-04-17] MEDS: MULTIVITAMIN TABLET PO SCH (09:23)
[2021-04-17] MEDS: LEXAPRO PO SCH (09:23)
[2021-04-17] MEDS: ROCEPHIN 1 GM/50 ML D5W 1 GM/50 ML BAG IV SCH (09:24)
[2021-04-17] MEDS: LANTUS SUBCUT SCH ×2 (09:27→20:14)
[2021-04-17] MEDS: INVANZ 1 GM in SODIUM CHLORIDE 50 ML IV SCH (10:13)
[2021-04-17] MEDS: K-DUR PO PRN (11:40)
--- NOTE | 2021-04-17 12:59 | RS.PTINEVL ---
Subjective - Patient information Date of Evaluation: 04/17/21 Date of Arrival on Unit: 04/14/21 Admitted From:: Home Diagnosis: acute COPD exacerbation, Usual Living Arrangement: With Spouse Living Arrangement Comments: raises granddaughter Home Environment: House, Stairs (few), Rail Medical History: Diabetes, Arthritis Medical History Comments:: recurrent UTI, Afib, L lower lobe mass, falls, LE edema, CAD, anemia, osteoporosis, neuropathy, LATEX ALLERGY?: No Surgical History: Hysterectomy, CABG Medications: see chart Subjective Information/ Patient Comments:: pt states that she has been up walking with nursing staff and some on her own. She states she is able to get cleaned up by herself and knows she has to be up moving to get stronger. - Level of function Prior to this admission, the patient could do the following:: Independent Selfcare, Independent ADL's, Drive Current Level of Function: Partially Dependent Current Equipment Used at Home: page tao, juan lopez, Interventions - Objective Patient Orientation: Person, Place, Time, Situation Current Interventions: IV's, Oxygen (2 liters), Telemetry Range of Motion - ROM Right Upper Extremity AROM: WFL's Left Upper Extremity AROM: WFL's Right Lower Extremity AROM: WFL's Left Lower Extremity AROM: WFL's Muscle Strength - Muscle Strength Right Upper Extremity Strength: Mild Weakness (grossly 4/5) Left Upper Extremity Strength: Mild Weakness (grossly 4/5) Right Lower Extremity Strength: Mild Weakness (hip flex 4/5, knee flex/ext 4+/5, ankle DF/PF 4+/5) Left Lower Extremity Strength: Mild Weakness (hip flex 4/5, knee flex/ext 4+/5, ankle DF/PF 4+/5) Sensation - Sensation Right Upper Extremity Sensation: Intact/Normal Left Upper Extremity Sensation: Intact/Normal Right Lower Extremity Sensation: Intact/Normal Left Lower Extremity Sensation: Intact/Normal Palpation Palpation Findings: None/Normal Balance - Sitting Balance and Reactions Static Sitting Balance: Good Dynamic Sitting Balance: Good - Standing Balance and Reactions Static Standing Balance: Fair Dynamic Standing Balance: Fair Functional Mobility - Bed Mobility Rolling R/L: Independent Supine to Sit: Independent Sit to Supine: Independent - Transfers Sit to Stand: Supervision Stand to Sit: Supervision - Safety Awareness Safety Awareness: Fair JENNI INDEX SCORE: n/a Ambulation - Ambulation Assistive Device Used: Rolling Walker Orthotic/Prosthetic Device: No Distance: 145ft Assistance needed with Ambulation: Supervision Gait Deviations: Forward posture, Short stride Ambulation Comments: pt amb with 2liters O2 Factors Affecting Ambulation: Breathing/O2 Saturation, Weakness, Decreased Safety, Limited Endurance Treatment time - Time with patient Length of Evaluation: 21 Total treatment time: 25 Patient Education - Education Patient Education: Activity Modification Teaching Recipient: Patient Teaching Methods: Discussion Assessment - Assessment Problem List:: Decreased level of function, Decreased safety/Risk of falls, Weakness Further Therapy Indicated?: No Candidate for Swing Bed for Therapy Services?: pt is not a swing bed candidate due to high level of function Comments: Feel pt does not require skilled PT at this time due to amb in hallway with nursing several times a day and is up in bathroom on her own. Evaluation Complexity: HISTORY: Medium, EXAM OF BODY SYSTEMS: Medium, CLINICAL PRESENTATION: Medium, CLINICAL DECISION MAKING: Medium Patient's Goal(s): go home Short Term Goals GOAL #1: . GOAL #2: . GOAL #3: . GOAL #4: . GOAL #5: . Care Home Goals GOAL #1: . GOAL #2: . GOAL #3: . Plan Other:: eval only, Frequency of Treatment: One time treatment Duration of Treatment: One Time Treatment Anticipated Discharge Destination: Home Treatment Diagnosis (ICD 10 Codes): M62.81 weakness Has the Physician been added for Co-signature?: Yes
[2021-04-17] MEDS: COUMADIN PO SCH (17:28)
[2021-04-17] MEDS: ZOCOR PO SCH (17:28)
[2021-04-17] MEDS: XANAX PO PRN (20:13)
[2021-04-18] MEDS: PULMICORT 1 MG/2 ML NEB SCH ×2 (04:45→19:10)
[2021-04-18] MEDS: DUONEB NEB SCH ×3 (04:45→19:10)
[2021-04-18 05:00] LABS: BASOPHILS % (AUTO) 0.1 % (0.0-3.0); HEMATOCRIT 31.5 % (37.0-47.0); HEMOGLOBIN 10.6 g/dl (12.0-16.0); IMMATURE GRANULOCYTE # (AUTO) 0.1 (0.0-1.0); IMMATURE GRANULOCYTE % (AUTO) 1.1 % (0.0-5.0); LYMPHOCYTES # (AUTO) 0.9 K/uL (0.60-3.4); MEAN CORPUSCULAR HEMOGLOBIN 32.1 pg (27.0-31.0); MEAN CORPUSCULAR HGB CONC 33.7 (31.8-35.4); MEAN CORPUSCULAR VOLUME 95.5 fl (81.0-99.0); MONOCYTES # (AUTO) 0.5 K/uL (0.4-2.0); MONOCYTES % (AUTO) 4.6 (0-10); NEUTROPHILS # (AUTO) 9.2 K/ul (2.0-6.9); NEUTROPHILS % (AUTO) 86.2 % (42.2-75.2); PLATELET COUNT 274 10^3/uL (140-440); RDW COEFFICIENT OF VARIATION 12.6 % (11.6-14.8); WHITE BLOOD COUNT 10.69 K/ul (4.6-10.2)
[2021-04-18 05:10] LABS: PROTHROMBIN TIME 25.2 SEC (9.3-11.0)
[2021-04-18 05:14] LABS: ALANINE AMINOTRANSFERASE 29.4 U/L (0-35); ALBUMIN 2.98 g/dL (3.5-5.0); ALKALINE PHOSPHATASE 76.2 U/L (53-141); ASPARTATE AMINO TRANSFERASE 35.1 U/L (14-36); BILIRUBIN,TOTAL 0.28 mg/dL (0.2-1.3); BLOOD UREA NITROGEN 21.6 mg/dL (7-17); CALCIUM 8.35 mg/dL (8.4-10.2); CHLORIDE 100.1 mmol/L (98-107); CREATININE 0.52 mg/dL (0.60-1.30); GLUCOSE 115.8 mg/dL (74-106); POTASSIUM 3.55 mmol/L (3.5-5.1); SODIUM 138.5 mmol/L (134.5-145); TOTAL PROTEIN 5.48 g/dL (6.3-8.2)
[2021-04-18] MEDS: SOLU-CORTEF 250 MG IVP SCH ×3 (05:17→21:01)
[2021-04-18] MEDS: NORCO 5-325 PO PRN ×2 (05:22→17:06)
[2021-04-18] MEDS: CALAN SR PO SCH ×2 (08:52→20:12)
[2021-04-18] MEDS: KEFLEX PO SCH ×2 (08:52→20:11)
[2021-04-18] MEDS: LANOXIN PO SCH (08:52)
[2021-04-18] MEDS: MULTIVITAMIN TABLET PO SCH (08:53)
[2021-04-18] MEDS: LEXAPRO PO SCH (08:53)
[2021-04-18] MEDS: K-DUR PO SCH (08:53)
[2021-04-18] MEDS: MEGACE PO SCH (08:53)
[2021-04-18] MEDS: LANTUS SUBCUT SCH ×2 (08:54→20:12)
--- NOTE | 2021-04-18 09:01 | PCM.PROG ---
Attending Provider: ATTENDING PROVIDER: Dr. SAMUEL BELLO DATE OF SERVICE: 04/18/21 SUBJECTIVE: This 86 year old /WHITE F was hospitalized 04/14/21 with acute COPD exacerbation. The patient's condition has steadily improved. She has been up and about on her own. REVIEW OF SYSTEMS: CONSTITUTIONAL: No night sweats. No fatigue, malaise, lethargy. No fever or chills. HEENT: Eyes: No visual changes. No eye pain. No eye discharge. ENT: No runny nose. No epistaxis. No sinus pain. No odynophagia. No congestion. RESPIRATORY: No cough, no congestion. No hemoptysis. Shortness of breath with exertion as usual. CARDIOVASCULAR: No angina symptoms. No CHF symptoms. No atypical chest pain for CAD. No palpitations. No orthopnea.. GASTROINTESTINAL: No abdominal pain. No nausea or vomiting. No diarrhea or constipation. No hematemesis. No hematochezia. GENITOURINARY: No urgency. No frequency. No dysuria. No hematuria. No obstructive symptoms. No discharge. No pain. No significant abnormal bleeding. MUSCULOSKELETAL: No musculoskeletal pain; no joint swelling. NEUROLOGICAL: Awake, alert, oriented to time, place and person. No headache. No neck pain. No syncope. No seizures. No dizziness. PSYCHIATRIC: Not anxious. No depression. No suicidal thoughts. No homicidal thoughts. SKIN: No rash. No lesions. No wounds. ENDOCRINE: No unexplained weight loss. No weight gain. HEMATOLOGIC/LYMPHATIC: No anemia. No purpura. No petechiae. No prolonged or excessive bleeding. No palpable lymph nodes. PHYSICAL EXAMINATION: GENERAL: The patient is awake, alert and oriented, lying in bed in no distress. VITAL SIGNS: Temperature 98.1 F, Pulse 69, Respiratory Rate 20, BP 132/56, Pulse Ox 99% HEENT: Head normocephalic, atraumatic. Eyes: Extraocular muscles are intact. Pupils are equal, round and reactive to light and accommodation. Ears: No lesions. Nose appeared normal. Throat: No exudate or erythema. NECK: Supple. No JVD, no carotid bruit. No lymphadenopathy or thyromegaly. LUNGS: Good air entry. No Wheezing. Clear to auscultation. Percussion note normal. Chest symmetrical. HEART: S1, S2, no S3. No murmurs. No cyanosis or clubbing. No ascites. Pulses: Dorsalis pedis and posterior tibial pulses +1 to +2 both sides. ABDOMEN: Soft. Non-tender. Bowel sounds active. No CVA tenderness. No mass felt. EXTREMITIES: No edema. Full range of motion of all extremities, equal. NEUROLOGIC: No focal deficit. Cranial nerves II through XII are grossly intact. No headache, no double vision or headache. SKIN: Warm and dry. Intact. Turgor-normal. LYMPHATIC: No palpable lymph nodes/no lymphedema. MUSCULOSKELETAL: Normal joints with no swelling. Muscle tone is normal. LAB REVIEW: 04/18/21 04:35 04/18/21 04:35 04/18/21 04:35: Sodium 138.5, Potassium 3.55, Chloride 100.1, Carbon Dioxide 37.0 H, Anion Gap 4.95, BUN 21.6 H, Creatinine 0.52 L, Estimated GFR (MDRD) 112.00, BUN/Creatinine Ratio 41.53, Glucose 115.8 H D, Calcium 8.35 L, Total Bilirubin 0.28, AST 35.1, ALT 29.4, Alkaline Phosphatase 76.2, Total Protein 5.48 L, Albumin 2.98 L, Globulin 2.50, Albumin/Globulin Ratio 1.19 04/18/21 04:35: PT 25.2 H D, INR 2.36 04/18/21 04:35: WBC 10.69 H, RBC 3.30 L, Hgb 10.6 L, Hct 31.5 L, MCV 95.5, MCH 32.1 H, MCHC 33.7, RDW Coeff of Leland 12.6, Plt Count 274, Immature Gran % (Auto) 1.1, Neut % (Auto) 86.2 H, Lymph % (Auto) 8.0 L, [place] % (Auto) 4.6, Eos % (Auto) 0.0, Baso % (Auto) 0.1, Neut # (Auto) 9.2 H, Lymph # (Auto) 0.9, Glades # (Auto) 0.5, Eos # (Auto) 0.0, Baso # (Auto) 0.0, Immature Gran # (Auto) 0.1 ASSESSMENT: Please see below. 1. COPD exacerbation improved with antibiotics, NEBS and steroids. 2. Question of UTI still persists with ESBL in past. She was started on Invanz and cephalosporins. Urinalysis looked highly abnormal but the cultures did more than 30,000 colonies. She is asymptomatic as far as dysuria and frequency. PLAN: 1. We will continue to monitor that situation. 2. INR was 2.36 this morning on 4mg. We will monitor INR Plan and coordination of the patient's care discussed in the presence of Oil Pipe Inspector Helper and nurse. CONDITION: Stable. Improved. SCRIBED BY: Geoffrey GUADALUPE scribed while in presence of service performed by Dr. SAMUEL BELLO on 04/18/21 ([id number])
[2021-04-18] MEDS: HUMULIN R SUBCUT PRN ×3 (11:09→20:13)
[2021-04-18] MEDS: ZOCOR PO SCH (17:06)
[2021-04-18] MEDS: COUMADIN PO SCH (17:07)
[2021-04-18] MEDS: XANAX PO PRN (20:19)
[2021-04-19] MEDS: PULMICORT 1 MG/2 ML NEB SCH ×2 (05:16→19:13)
[2021-04-19] MEDS: DUONEB NEB SCH ×3 (05:16→19:13)
[2021-04-19] MEDS: SOLU-CORTEF 250 MG IVP SCH ×3 (05:25→20:05)
[2021-04-19 05:28] LABS: BASOPHILS % (AUTO) 0.1 % (0.0-3.0); HEMOGLOBIN 10.3 g/dl (12.0-16.0); IMMATURE GRANULOCYTE # (AUTO) 0.2 (0.0-1.0); IMMATURE GRANULOCYTE % (AUTO) 1.6 % (0.0-5.0); LYMPHOCYTES # (AUTO) 0.8 K/uL (0.60-3.4); LYMPHOCYTES % (AUTO) 6.9 (10.0-50.0); MEAN CORPUSCULAR HEMOGLOBIN 31.6 pg (27.0-31.0); MEAN CORPUSCULAR HGB CONC 33.2 (31.8-35.4); MEAN CORPUSCULAR VOLUME 95.1 fl (81.0-99.0); MONOCYTES # (AUTO) 0.6 K/uL (0.4-2.0); NEUTROPHILS # (AUTO) 10.2 K/ul (2.0-6.9); NEUTROPHILS % (AUTO) 86.4 % (42.2-75.2); PLATELET COUNT 263 10^3/uL (140-440); RDW COEFFICIENT OF VARIATION 12.6 % (11.6-14.8); RED BLOOD COUNT 3.26 10^6/ul (4.20-5.40); WHITE BLOOD COUNT 11.82 K/ul (4.6-10.2)
[2021-04-19 05:31] LABS: PROTHROMBIN TIME 29.3 SEC (9.3-11.0)
[2021-04-19 05:34] LABS: ALANINE AMINOTRANSFERASE 30.1 U/L (0-35); ALBUMIN 2.86 g/dL (3.5-5.0); ALKALINE PHOSPHATASE 74.7 U/L (53-141); ASPARTATE AMINO TRANSFERASE 30.7 U/L (14-36); BILIRUBIN,TOTAL 0.28 mg/dL (0.2-1.3); BLOOD UREA NITROGEN 26.2 mg/dL (7-17); CALCIUM 8.26 mg/dL (8.4-10.2); CARBON DIOXIDE 36.8 mmol/L (22-30.0); CHLORIDE 101.6 mmol/L (98-107); CREATININE 0.55 mg/dL (0.60-1.30); GLUCOSE 140.5 mg/dL (74-106); POTASSIUM 3.75 mmol/L (3.5-5.1); SODIUM 139.7 mmol/L (134.5-145); TOTAL PROTEIN 5.18 g/dL (6.3-8.2)
[2021-04-19] MEDS: LANTUS SUBCUT SCH ×2 (08:47→20:06)
[2021-04-19] MEDS: MEGACE PO SCH (08:48)
[2021-04-19] MEDS: CALAN SR PO SCH ×2 (08:48→20:04)
[2021-04-19] MEDS: KEFLEX PO SCH ×2 (08:48→20:04)
[2021-04-19] MEDS: MULTIVITAMIN TABLET PO SCH (08:49)
[2021-04-19] MEDS: K-DUR PO SCH (08:49)
[2021-04-19] MEDS: NORCO 5-325 PO PRN ×2 (08:49→14:20)
[2021-04-19] MEDS: LANOXIN PO SCH (08:49)
[2021-04-19] MEDS: LEXAPRO PO SCH (08:49)
[2021-04-19] MEDS: HUMULIN R SUBCUT PRN ×3 (11:38→20:04)
[2021-04-19] MEDS: ZOCOR PO SCH (17:42)
[2021-04-19] MEDS: COUMADIN PO SCH (17:53)
[2021-04-19] MEDS: XANAX PO PRN (20:04)
[2021-04-20] MEDS: DUONEB NEB SCH (04:50)
[2021-04-20] MEDS: PULMICORT 1 MG/2 ML NEB SCH (04:50)
[2021-04-20 05:07] LABS: BASOPHILS % (AUTO) 0.2 % (0.0-3.0); HEMATOCRIT 32.8 % (37.0-47.0); IMMATURE GRANULOCYTE # (AUTO) 0.2 (0.0-1.0); IMMATURE GRANULOCYTE % (AUTO) 1.6 % (0.0-5.0); LYMPHOCYTES # (AUTO) 0.9 K/uL (0.60-3.4); LYMPHOCYTES % (AUTO) 7.6 (10.0-50.0); MEAN CORPUSCULAR HEMOGLOBIN 31.9 pg (27.0-31.0); MEAN CORPUSCULAR HGB CONC 33.5 (31.8-35.4); MEAN CORPUSCULAR VOLUME 95.1 fl (81.0-99.0); MONOCYTES # (AUTO) 0.6 K/uL (0.4-2.0); MONOCYTES % (AUTO) 5.1 (0-10); NEUTROPHILS # (AUTO) 10.2 K/ul (2.0-6.9); NEUTROPHILS % (AUTO) 85.5 % (42.2-75.2); PLATELET COUNT 275 10^3/uL (140-440); RDW COEFFICIENT OF VARIATION 12.7 % (11.6-14.8); RED BLOOD COUNT 3.45 10^6/ul (4.20-5.40); WHITE BLOOD COUNT 11.87 K/ul (4.6-10.2)
[2021-04-20 05:24] LABS: PROTHROMBIN TIME 33.2 SEC (9.3-11.0)
[2021-04-20 05:26] LABS: ALANINE AMINOTRANSFERASE 32.8 U/L (0-35); ALBUMIN 3.01 g/dL (3.5-5.0); ALKALINE PHOSPHATASE 75.9 U/L (53-141); ASPARTATE AMINO TRANSFERASE 31.6 U/L (14-36); BILIRUBIN,TOTAL 0.34 mg/dL (0.2-1.3); BLOOD UREA NITROGEN 25.1 mg/dL (7-17); CALCIUM 8.07 mg/dL (8.4-10.2); CARBON DIOXIDE 38.3 mmol/L (22-30.0); CREATININE 0.59 mg/dL (0.60-1.30); GLUCOSE 172.7 mg/dL (74-106); POTASSIUM 3.61 mmol/L (3.5-5.1); SODIUM 136.6 mmol/L (134.5-145); TOTAL PROTEIN 5.34 g/dL (6.3-8.2)
[2021-04-20] MEDS: HUMULIN R SUBCUT PRN ×2 (05:36→12:33)
[2021-04-20] MEDS: SOLU-CORTEF 250 MG IVP SCH ×2 (05:38→12:35)
[2021-04-20 05:41] VITALS: BP 137/60; TEMP 98.9
[2021-04-20] MEDS: NORCO 5-325 PO PRN (05:54)
[2021-04-20] MEDS: KEFLEX PO SCH (09:02)
[2021-04-20] MEDS: CALAN SR PO SCH (09:02)
[2021-04-20] MEDS: LEXAPRO PO SCH (09:02)
[2021-04-20] MEDS: MULTIVITAMIN TABLET PO SCH (09:02)
[2021-04-20] MEDS: K-DUR PO SCH (09:03)
[2021-04-20] MEDS: MEGACE PO SCH (09:03)
[2021-04-20] MEDS: LANOXIN PO SCH (09:03)
[2021-04-20] MEDS: LANTUS SUBCUT SCH (09:04)
--- NOTE | 2021-04-21 13:01 | ECHO2D ---
Date of Exam: 04/20/2021 Ordering Physician: DR. SAMUEL BELLO Room #: 102 Reason for Echo: CAD, COPD, CORONARY BYPASS X 3, SOB M-Mode Normal Adult Results LV Dimensions Normal Adult Results AoV Opening excursions >1.6 >1.6 LVEDD-base- 3.5-5.8 3.9 Ao root dimensions 2.0-3.7 3.6 LVESD-base- 3.1-4.6 L. Atrium dimensions 1.9-3.8 4.1 Post. Wall thickness 0.8-1.1 1.0 IV septum (thickness) 0.7-1.2 0.9 Post. Wall excursion 0.72-1.3 NORMAL Septal motion NORMAL Systolic motion R. Ventricular cavity 1.5-2.0 3.0 LVEF 60% 63% Paradoxical septal wall motion NORMAL 2-D : MILDLY ENLARGED LEFT ATRIAL CAVITY AND RIGHT VENTRICLE CAVITY--MITRAL VALVE PROLAPSE NOTED--APICAL FOUR CHAMBER VIEW AND LEFT PARASTERNAL LONG AXIS, NO EFFUSION, NO THROMBUS M-MODE: MV: MITRAL VALVE PROLAPSE --LATE SYSTOLIC AV: NORMAL TV: NORMAL PV: NORMAL CHAMBER SIZE: ENLARGED RIGHT VENTRICLE AND LEFT ATRIAL CAVITIES WALL MOTION: NORMAL PERICARDIUM: NORMAL INTERPRETATION: 1. MITRAL VALVE PROLAPSE LATE SYSTOLIC 2. ENLARGED LEFT ATRIAL AND RIGHT VENTRICLE CAVITIES 3. NORMAL LEFT VENTRICLE CONTRACTILITY 4. NORMAL VALVES MTDD
--- NOTE | 2021-04-23 09:10 | DS ---
DATE OF SERVICE: 04/20/21 FINAL DIAGNOSIS: 1. ACUTE BRONCHITIS WITH COPD EXACERBATION 2. SHORTNESS OF BREATH 3. WEAKNESS 4. FATIGUE FROM DETERIORATION OF PHYSICAL STATUS 5. ATRIAL FIBRILLATION ON COUMADIN 6. COPD, SEVERE WITH HISTORY OF SMOKING, ON HOME OXYGEN 7. HISTORY OF RECURRENT PNEUMONIA 8. CORONARY ARTERY BYPASS SURGERY 1997 9. REOCCURRING UTI WITH ESBL 10. 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 TUCKER AND DR. INFANTE. 11. DIABETES MELLITUS, A1C 7.1 ON 10/27. 12. CHRONIC BRONCHITIS 13. CHRONIC LEG EDEMA 14. MALNUTRITION, BMI OF 18. 15. CHRONIC ANEMIA 16. PERIPHERAL ARTERIAL DISEASE 17. HISTORY OF RECURRENT FALLS MEDICATIONS AT DISCHARGE: Continue all the medications including: [place] Lanoxin Pulmicort Lexapro Lasix Zocor Neurontin Coumadin Oxygen 2L at home Prednisone 10 mg daily for 7 days Keflex 500 mg t.i.d. for 5 days ACTIVITY: Up as tolerated, frequent rest periods, no strenuous activity HOSPITAL COURSE: This 86-year-old female was hospitalized with weakness and fatigue, practically unable to walk. She was dehydrated with dry skin, very poor appetite. In the hospital the patient was treated with antibiotics, steroids, nebs and fluids. The patient's condition improved. Her appetite improved. She was up and about without any help. Her hydration status improved. For awhile she was also on Vancomycin for possible ESBL which was discontinued. She was discharged home on antibiotics and steroids. Overall, status had improved, appetite had improved. She was up and about without any help. The problem is that she doesn't have much help at home and she was not eating. She was advised to add food supplements, quit smoking. Counseling for smoking was done. The patient's prognosis is poor considering her problems and her lifestyle. TIME SPENT: More than 60 minutes. STEFANO
--- NOTE | 2021-04-23 09:52 | PN ---
BILLING 04/14/21 ADMISSION DAY LEVEL 5 04/15/21 INTERMEDIATE 04/16/21 INTERMEDIATE 04/17/21 INTERMEDIATE 04/18/21 INTERMEDIATE 04/19/21 INTERMEDIATE 04/20/21 D IN DISCHARGE MTDD
--- NOTE | 2021-04-24 12:59 | PN ---
DATE OF SERVICE: 04/19/21 SUBJECTIVE: 86-year-old white female hospitalized with COPD exacerbation, generalized weakness. The patient is feeling a lot better. She wants to go home. REVIEW OF SYSTEMS: CONSTITUTIONAL: No night sweats. No fatigue, malaise, lethargy. No fever or chills. HEENT: Eyes: No visual changes. No eye pain. No eye discharge. ENT: No runny nose. No epistaxis. No sinus pain. No sore throat. No odynophagia. No congestion. RESPIRATORY: No cough, no congestion. No hemoptysis. No shortness of breath. CARDIOVASCULAR: No angina symptoms. No CHF symptoms. No atypical chest pain for CAD. No palpitations. No PND. No orthopnea. GASTROINTESTINAL: No abdominal pain. No nausea or vomiting. No diarrhea or constipation. No hematemesis. No hematochezia. GENITOURINARY: No urgency. No frequency. No dysuria. No hematuria. No obstructive symptoms. No discharge. No pain. No significant abnormal bleeding. MUSCULOSKELETAL: No musculoskeletal pain; no joint swelling. NEUROLOGICAL: No headache. No neck pain. No syncope. No seizures. No dizziness. PSYCHIATRIC: Not anxious. No depression. No suicidal thoughts. No homicidal thoughts. SKIN: No rash. No lesions. No wounds. ENDOCRINE: No unexplained weight loss. No weight gain. HEMATOLOGIC/LYMPHATIC: No anemia. No purpura. No petechiae. No prolonged or excessive bleeding. No palpable lymph nodes. PHYSICAL EXAMINATION: VITAL SIGNS: Temperature 97.8, pulse 70, respiratory rate 18, blood pressure 140/60, pulse ox 99% on 2L. HEENT: Head normocephalic, atraumatic. Eyes: Extraocular muscles are intact. Pupils are equal, round and reactive to light and accommodation. Ears: No lesions. Nose appeared normal. Throat: No exudate or erythema. NECK: Supple. No JVD, no carotid bruit. No lymphadenopathy or thyromegaly. LUNGS: Decreased breath sounds but clear to auscultation. Percussion note normal. Chest symmetrical. HEART: S1, S2, no S3. No murmurs. No cyanosis or clubbing. No ascites. Pulses: Dorsalis pedis and posterior tibial pulses +1 to +2 bilaterally. ABDOMEN: Soft. Nontender. Bowel sounds active. No CVA tenderness. No mass felt. EXTREMITIES: No edema. Full range of motion of all extremities, equal. NEUROLOGIC: No focal deficit. Cranial nerves II through XII are grossly intact. No headache. No double vision. SKIN: Not dry. Intact. Turgor - normal. LYMPHATIC: No palpable lymph nodes/no lymphedema. MUSCULOSKELETAL: Normal joints with no swelling. Muscle tone is normal. LABS: Hemoglobin 10.3, hematocrit 31, WBC 11,000, normal differential. Creatinine 0.5, BUN 26, potassium 3.7. ASSESSMENT: 1. Acute exacerbation of COPD seems to be under control. On physical examination the patient does not have any wheeze on the lungs, good air entry. 2. Coronary artery bypass surgery. 3. Severe chronic lung disease with smoking. PLAN: 1. Counseling for smoking. 2. The patient's blood sugar is under control. 3. The patient seems to be improving. She looks a lot better. She is able to walk without much help. The patient is a lot better because on admission she was unable to walk on her own. TIME SPENT: More than 30 minutes. Plan and coordination of the patient's care discussed in the presence of nurse. STEFANO
--- NOTE | 2021-04-24 13:09 | PN ---
DATE OF SERVICE: 04/20/21 SUBJECTIVE: The patient was seen and examined this morning. The patient is up and about, feeling a lot better. Oriented to time, place and person. She is moving around, going to the bathroom on her own. Gait is steady. Condition has improved remarkably. On admission she was unable to even walk, dizziness and weak. The patient's acute exacerbation of COPD is under control. REVIEW OF SYSTEMS: CONSTITUTIONAL: Weakness is a lot less than what it was before. No night sweats. No fatigue, malaise, lethargy. No fever or chills. HEENT: Eyes: No visual changes. No eye pain. No eye discharge. ENT: No runny nose. No epistaxis. No sinus pain. No sore throat. No odynophagia. No congestion. RESPIRATORY: No cough, no congestion. No hemoptysis. Shortness of breath on exertion as usual. CARDIOVASCULAR: No angina symptoms. No CHF symptoms. No atypical chest pain for CAD. No palpitations. No PND. No orthopnea. GASTROINTESTINAL: Appetite has improved. No abdominal pain. No nausea or vomiting. No diarrhea or constipation. No hematemesis. No hematochezia. GENITOURINARY: No urgency. No frequency. No dysuria. No hematuria. No obstructive symptoms. No discharge. No pain. No significant abnormal bleeding. MUSCULOSKELETAL: No musculoskeletal pain; no joint swelling. NEUROLOGICAL: No headache. No neck pain. No syncope. No seizures. No dizziness. PSYCHIATRIC: Not anxious. No depression. No suicidal thoughts. No homicidal thoughts. SKIN: No rash. No lesions. No wounds. ENDOCRINE: No unexplained weight loss. No weight gain. HEMATOLOGIC/LYMPHATIC: No anemia. No purpura. No petechiae. No prolonged or excessive bleeding. No palpable lymph nodes. PHYSICAL EXAMINATION: HEENT: Head normocephalic, atraumatic. Eyes: Extraocular muscles are intact. Pupils are equal, round and reactive to light and accommodation. Ears: No lesions. Nose appeared normal. Throat: No exudate or erythema. NECK: Supple. No JVD, no carotid bruit. No lymphadenopathy or thyromegaly. LUNGS: Decreased breath sounds but good air entry. No wheezing. Percussion note normal. Chest symmetrical. HEART: S1, S2, no S3. No murmurs. No cyanosis or clubbing. No ascites. Pulses: Dorsalis pedis and posterior tibial pulses +1 to +2 bilaterally. ABDOMEN: Soft. Nontender. Bowel sounds active. No CVA tenderness. No mass felt. EXTREMITIES: No edema. Full range of motion of all extremities, equal. NEUROLOGIC: No focal deficit. Cranial nerves II through XII are grossly intact. No headache. No double vision. SKIN: Not dry. Intact. Turgor - normal. LYMPHATIC: No palpable lymph nodes/no lymphedema. MUSCULOSKELETAL: Normal joints with no swelling. Muscle tone is normal. ASSESSMENT: 1. Acute exacerbation of COPD with generalized weakness and fatigue, seems to have resolved. PLAN: 1. Discharge the patient home on Keflex and steroids. The patient is strongly advised to quit smoking. 2. Counseling for smoking done. 3. Continue the rest of the medications. 4. As usual the patient says she doesn't remember where her [place] and Xanax are. Sometimes they are stolen by kids and grandkids. We will not refill any of them. 5. Instructed to come back in 5 to 7 days. 6. Advised to eat. 7. Increase intake of proteins. 8. Advise Boost or Ensure Plus. Of Note: The patient had an echocardiogram done which showed mitral valve prolapse, normal LV contractility with ejection fraction 60%, increased RV cavity size. TIME SPENT: More than 30 minutes. Plan and coordination of the patient's care discussed in the presence of nurse. STEFANO
--- NOTE | 2021-04-24 13:11 | PN ---
BILLING 04/14/21 ADMISSION DAY LEVEL 5 04/15/21 INTERMEDIATE 04/16/21 INTERMEDIATE 04/17/21 INTERMEDIATE 04/18/21 INTERMEDIATE 04/19/21 INTERMEDIATE 04/20/21 D IN DISCHARGE MTDD
== END 2021-04-20 12:52 | disposition home or self-care (01) | DRG 689 ==
LOC: LAB 11:15 → MEDSURG A 12:59
PROVIDERS: ADMIT Internal Medicine; ATTEND Internal Medicine

== ENCOUNTER 2021-05-13 11:09 | Inpatient (IN) ==
[2021-05-13 11:28] LABS: BORDETELLA PARAPERTUSSIS (PCR) NOT DETECTED (NOT DETECT); BORDETELLA PERTUSSIS (PCR) NOT DETECTED (NOT DETECT); CHLAMYDIA PNEUMONIAE (PCR) NOT DETECTED (NOT DETECT); CORONAVIRUS 229E (PCR) NOT DETECTED (NOT DETECT); CORONAVIRUS HKU1 (PCR) NOT DETECTED (NOT DETECT); CORONAVIRUS NL63 (PCR) NOT DETECTED (NOT DETECT); CORONAVIRUS OC43 (PCR) NOT DETECTED (NOT DETECT); HUMAN METAPNEUMOVIRUS (PCR) NOT DETECTED (NOT DETECT); HUMAN RHINOVIRUS/ENTEROV (PCR) NOT DETECTED (NOT DETECT); INFLUENZA B (PCR) NOT DETECTED (NOT DETECT); MYCOPLASMA PNEUMONIAE (PCR) NOT DETECTED (NOT DETECT); PARAINFLUENZA VIRUS 1 (PCR) NOT DETECTED (NOT DETECT); PARAINFLUENZA VIRUS 2 (PCR) NOT DETECTED (NOT DETECT); PARAINFLUENZA VIRUS 3 (PCR) NOT DETECTED (NOT DETECT); PARAINFLUENZA VIRUS 4 (PCR) NOT DETECTED (NOT DETECT); RESPIRATORY SYNCYTIAL V (PCR) NOT DETECTED (NOT DETECT); SARS_COV_2 (PCR) NOT DETECTED (NOT DETECT)
[2021-05-13 12:16] LABS: ADENOVIRUS (PCR) NOT DETECTED (NOT DETECT)
[2021-05-13] MEDS ORDERED: TYLENOL PO PRN (13:16)
[2021-05-13] MEDS ORDERED: ATROPINE SULFATE PFS IVP PRN (13:16)
[2021-05-13] MEDS ORDERED: NITROSTAT SL PRN (13:16)
[2021-05-13 13:44] VITALS: BMI 16.5
[2021-05-13 13:57] LABS: BASOPHILS % (AUTO) 0.2 % (0.0-3.0); EOSINOPHILS % (AUTO) 0.1 % (0.0-7.0); HEMATOCRIT 34.8 % (37.0-47.0); HEMOGLOBIN 12.2 g/dl (12.0-16.0); IMMATURE GRANULOCYTE # (AUTO) 0.1 (0.0-1.0); IMMATURE GRANULOCYTE % (AUTO) 0.6 % (0.0-5.0); LYMPHOCYTES % (AUTO) 10.3 (10.0-50.0); MEAN CORPUSCULAR HEMOGLOBIN 32.3 pg (27.0-31.0); MEAN CORPUSCULAR HGB CONC 35.1 (31.8-35.4); MEAN CORPUSCULAR VOLUME 92.1 fl (81.0-99.0); MONOCYTES # (AUTO) 0.5 K/uL (0.4-2.0); NEUTROPHILS # (AUTO) 8.5 K/ul (2.0-6.9); NEUTROPHILS % (AUTO) 83.8 % (42.2-75.2); PLATELET COUNT 240 10^3/uL (140-440); RED BLOOD COUNT 3.78 10^6/ul (4.20-5.40)
[2021-05-13] MEDS ORDERED: K-DUR PO PRN (14:06)
[2021-05-13] MEDS ORDERED: NEURONTIN PO PRN (14:06)
[2021-05-13] MEDS ORDERED: LASIX TAB PO PRN (14:06)
[2021-05-13] MEDS ORDERED: DUONEB NEB PRN (14:06)
[2021-05-13 14:09] LABS: ALANINE AMINOTRANSFERASE 18.3 U/L (0-35); ALBUMIN 3.6 g/dL (3.5-5.0); ALKALINE PHOSPHATASE 85.8 U/L (53-141); BILIRUBIN,TOTAL 0.42 mg/dL (0.2-1.3); BLOOD UREA NITROGEN 17.8 mg/dL (7-17); CALCIUM 8.89 mg/dL (8.4-10.2); CARBON DIOXIDE 26.8 mmol/L (22-30.0); CHLORIDE 101.9 mmol/L (98-107); CREATINE KINASE 73.5 U/L (30-135); CREATININE 0.72 mg/dL (0.60-1.30); GLUCOSE 330.2 mg/dL (74-106); POTASSIUM 4.41 mmol/L (3.5-5.1); PROTHROMBIN TIME 38.2 SEC (9.3-11.0); SODIUM 133.7 mmol/L (134.5-145); TOTAL PROTEIN 6.23 g/dL (6.3-8.2)
[2021-05-13 14:20] LABS: TROPONIN I 0.015 ng/ml (0.0000-0.120)
[2021-05-13] MEDS: INVANZ 1 GM in SODIUM CHLORIDE 50 ML IV SCH (14:44)
--- NOTE | 2021-05-13 15:19 | DI ---
EXAM: Single AP view of the chest HISTORY: Shortness of breath. COMPARISON: Chest x-ray 04/14/2021 and multiple priors FINDINGS: The cardiomediastinal silhouette is unchanged. There are sternotomy wires present. There is no pneumothorax or effusion. The lungs are hyperinflated. The osseous structures are normal. IMPRESSION: Hyperinflated lungs suggestive of chronic obstructive pulmonary disease with no acute co nsolidation.
[2021-05-13 15:20] LABS: BILIRUBIN,URINE Negative (NEGATIVE); CLARITY,URINE Clear (CLEAR); COLOR,URINE Yellow (YELLOW); GLUCOSE, URINE (UA) 2+ (NEGATIVE); KETONES,URINE Negative (NEGATIVE); LEUKOCYTE ESTERASE ,URINE 2+ (NEGATIVE); NITRITE,URINE Negative (NEGATIVE); PROTEIN,URINE 1+ (NEGATIVE); URINE, BLOOD Negative (NEGATIVE); UROBILINOGEN,URINE 0.2 (0.2)
[2021-05-13 15:26] LABS: BACTERIA,URINE 2+ (NOT PRESENT); MUCUS,URINE 1+ (NOT PRESENT); SQUAMOUS EPITHELIAL CELL,UR 30-50 (0-5); URINE WBC, MICROSCOPIC 30-50 (0-2)
[2021-05-13] MEDS: SODIUM CHLORIDE 1,000 ML IV SCH (15:36)
[2021-05-13] MEDS: NORCO 5-325 PO PRN (15:36)
[2021-05-13] MEDS: MEGACE PO SCH (16:45)
[2021-05-13] MEDS: ZOCOR PO SCH (16:45)
[2021-05-13] MEDS ORDERED: COUMADIN PO SCH (17:00)
[2021-05-13] MEDS ORDERED: ZOCOR PO SCH (17:00)
[2021-05-13] MEDS: COUMADIN PO SCH (17:43)
[2021-05-13] MEDS: HUMULIN R SUBCUT PRN (17:46)
[2021-05-13] MEDS: CALAN SR PO SCH (20:18)
[2021-05-13] MEDS: LANTUS SUBCUT SCH (20:20)
[2021-05-13] MEDS: DUONEB NEB SCH (20:50)
[2021-05-13] MEDS: PULMICORT 0.5 MG/2 ML NEB SCH (20:50)
[2021-05-13] MEDS ORDERED: CALAN SR PO SCH (21:00)
[2021-05-13] MEDS: XANAX PO PRN (21:00)
[2021-05-13 21:42] LABS: CREATINE KINASE 70.1 U/L (30-135)
[2021-05-13 21:55] LABS: TROPONIN I 0.022 ng/ml (0.0000-0.120)
[2021-05-14] MEDS: SODIUM CHLORIDE 1,000 ML IV SCH ×2 (04:28→17:53)
[2021-05-14] MEDS: PULMICORT 0.5 MG/2 ML NEB SCH (04:45)
[2021-05-14] MEDS: DUONEB NEB SCH (04:45)
[2021-05-14 05:23] LABS: BASOPHILS # (AUTO) 0.1 K/uL (0-0.2); BASOPHILS % (AUTO) 0.6 % (0.0-3.0); EOSINOPHILS # (AUTO) 0.2 K/ul (0.0-0.7); EOSINOPHILS % (AUTO) 1.5 % (0.0-7.0); HEMATOCRIT 37.1 % (37.0-47.0); HEMOGLOBIN 12.8 g/dl (12.0-16.0); IMMATURE GRANULOCYTE # (AUTO) 0.1 (0.0-1.0); IMMATURE GRANULOCYTE % (AUTO) 0.7 % (0.0-5.0); LYMPHOCYTES # (AUTO) 3.5 K/uL (0.60-3.4); LYMPHOCYTES % (AUTO) 32.4 (10.0-50.0); MEAN CORPUSCULAR HEMOGLOBIN 31.7 pg (27.0-31.0); MEAN CORPUSCULAR HGB CONC 34.5 (31.8-35.4); MEAN CORPUSCULAR VOLUME 91.8 fl (81.0-99.0); MONOCYTES # (AUTO) 1.1 K/uL (0.4-2.0); MONOCYTES % (AUTO) 9.9 (0-10); NEUTROPHILS % (AUTO) 54.9 % (42.2-75.2); PLATELET COUNT 260 10^3/uL (140-440); RED BLOOD COUNT 4.04 10^6/ul (4.20-5.40); WHITE BLOOD COUNT 10.86 K/ul (4.6-10.2)
[2021-05-14 05:35] LABS: PROTHROMBIN TIME 34.5 SEC (9.3-11.0)
[2021-05-14 05:39] LABS: ALANINE AMINOTRANSFERASE 18.2 U/L (0-35); ALBUMIN 3.5 g/dL (3.5-5.0); ASPARTATE AMINO TRANSFERASE 28.3 U/L (14-36); BILIRUBIN,TOTAL 0.42 mg/dL (0.2-1.3); BLOOD UREA NITROGEN 13.1 mg/dL (7-17); CALCIUM 8.91 mg/dL (8.4-10.2); CHLORIDE 107.5 mmol/L (98-107); CREATININE 0.54 mg/dL (0.60-1.30); GLUCOSE 105.1 mg/dL (74-106); POTASSIUM 4.1 mmol/L (3.5-5.1); SODIUM 137.5 mmol/L (134.5-145); TOTAL PROTEIN 6.2 g/dL (6.3-8.2)
[2021-05-14] MEDS ORDERED: PREDNISONE PO SCH ×2 (08:30→09:00)
[2021-05-14] MEDS: INVANZ 1 GM in SODIUM CHLORIDE 50 ML IV SCH (08:53)
[2021-05-14] MEDS: LANOXIN PO SCH (08:54)
[2021-05-14] MEDS: CALAN SR PO SCH ×2 (08:54→20:46)
[2021-05-14] MEDS: MULTIVITAMIN TABLET PO SCH (08:54)
[2021-05-14] MEDS: MEGACE PO SCH (08:54)
[2021-05-14] MEDS: LEXAPRO PO SCH (08:55)
[2021-05-14] MEDS ORDERED: MULTIVIT MIN FA LYCOPEN LUTEIN PO SCH (09:00)
[2021-05-14] MEDS ORDERED: [UNRECOGNIZED DRUG - OTHER] PO SCH (09:00)
[2021-05-14] MEDS: NORCO 5-325 PO PRN ×2 (11:36→16:28)
[2021-05-14] MEDS: LANTUS SUBCUT SCH ×2 (12:41→20:53)
[2021-05-14] MEDS: DECADRON IM SCH (13:14)
--- NOTE | 2021-05-14 13:45 | HP ---
DATE OF SERVICE: 05/13/2021 REASON FOR HOSPITALIZATION/HISTORY OF PRESENT ILLNESS: The patient is complaining of weakness, difficulty walking, shortness of air, sore throat hasn't been able to walk since Wednesday. No signs or symptoms of CHF/CAD/COVID. PAST MEDICAL HISTORY: COPD Hypertension Diabetes Mellitus type II Chronic bronchitis Anemia Atrial fibrillation Smoking [place] cancer pulmonary nodule, left PAD CAD CABG PAST SURGICAL HISTORY: CABG Hysterectomy Colonoscopy 05/21 Dr. Maloney REVIEW OF SYSTEMS: CONSTITUTIONAL: No fever, Fatigue. HEENT: No sinus drainage, no sore throat. RESPIRATORY: No cough, no congestion. CARDIOVASCULAR: No atypical chest pain for coronary artery disease. No angina, CHF symptoms, palpitations.Shortness of breath. GASTROINTESTINAL: No melena or abdominal pain. No GERD. GENITOURINARY: No hematuria, no prostatism, no polyuria.Urinary urgency. 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 GAIT: Wheelchair. MUSCULOSKELETAL: Osteoarthritis pain, no joint swelling. ENDOCRINE: No weight loss, no weight gain. SKIN: Not dry, no rash. PSYCHIATRIC: Not anxious, no depression, no suicidal thoughts, no homicidal thoughts. SOCIAL HISTORY: Marital Status: . Alcohol Usage: No. Tobacco Usage: Yes. FAMILY HISTORY: Father Mother Brother 4 Sister 4 MEDICATIONS: [place] 5-325mg TID DUONEB QID Xanax 0.25mg HS Pulmicort NEB BID Lanoxin 125mg Lexapro 10mg daily Lasix 20mg daily Neurontin 300mg BID Megace Lantus 20 units daily K-dur 20mg Zocor 40mg daily Calan SR 180mg BID Coumadin 4mg daily O2 2 liters nasal canula HS PRN Prednisone 5mg daily ALLERGIES: Tricor Keflex PHYSICAL EXAMINATION: V/S: Pulse 107, blood pressure 100/56, temperature 98.8, oxygen saturation 94%. Height 5'3, weight unable. GENERAL APPEARANCE: Oriented times three. HEENT: Pale. NECK: No JVP, no bruits. RESPIRATORY: Shortness of air. Decreased breath sounds. CARDIOVASCULAR: S1, S2, no S3, Irregular heart rate. No cyanosis, clubbing. No ascites. GI/ABDOMEN: No tenderness. Bowel sounds are active. EXTREMITIES: edema, pulses +1, equal. 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 RECTAL: Dr. Maloney 2013/PELVIC: The patient refused. ASSESSMENT: 1. UTI 2. Dehydration 3. Generalized weakness 4. History left hand hematoma and removed -[facility] 11/28 5. Diabetes Mellitus type II A1c 8.0 02/26 6. Atrial fibrillation-Coumadin 7. COPD-Steroid dependent 8. Left lower lobe mass-cancer- Dr. Mckenna status post radiation Dr. Vazquez 9. Recurrent UTI 10.Recurrent [place] 11.Chronic bronchitis 12.Leg edema 13.Right knee osteoarthritis 14.MARYANA 15.Anemia 16.PAD 17.Coronary artery disease 18.CABG 98 19.Osteoporosis 20.Dyslipidemia 21.Neuropathy PLAN: 1. Routine telemetry 2. CBC, CMP, INR now and daily 3. U/A with culture and sensitivity now 4. Chest x-ray 5. Continue home medications 6. Sliding scale for diabetes mellitus type II 7. Ertapenem IV Pharmacy to dose 8. Normal saline IV at 75cc and hour continuous 9. Regular diet 10.O2 at 1-2 liters normal saline. TIME SPENT: More than 70 minutes. MTDD
[2021-05-14] MEDS: ATROVENT HFA INHALER (PER PUFF-WITH SPACER) IH SCH ×2 (13:55→19:50)
[2021-05-14] MEDS: VENTOLIN HFA (PER PUFF-WITH SPACER) IH SCH ×2 (13:56→19:50)
[2021-05-14] MEDS: ZOCOR PO SCH (16:28)
[2021-05-14] MEDS: COUMADIN PO SCH (16:29)
[2021-05-14] MEDS: HUMULIN R SUBCUT PRN ×2 (17:22→20:47)
[2021-05-14] MEDS: XANAX PO PRN (20:46)
[2021-05-14] MEDS: SYMBICORT 160-4.5 MCG INHALER IH SCH (20:55)
[2021-05-15 05:05] LABS: BASOPHILS % (AUTO) 0.3 % (0.0-3.0); HEMATOCRIT 34.8 % (37.0-47.0); HEMOGLOBIN 11.9 g/dl (12.0-16.0); IMMATURE GRANULOCYTE # (AUTO) 0.1 (0.0-1.0); IMMATURE GRANULOCYTE % (AUTO) 0.9 % (0.0-5.0); LYMPHOCYTES # (AUTO) 1.5 K/uL (0.60-3.4); LYMPHOCYTES % (AUTO) 18.7 (10.0-50.0); MEAN CORPUSCULAR HEMOGLOBIN 31.6 pg (27.0-31.0); MEAN CORPUSCULAR HGB CONC 34.2 (31.8-35.4); MEAN CORPUSCULAR VOLUME 92.3 fl (81.0-99.0); MONOCYTES # (AUTO) 0.5 K/uL (0.4-2.0); NEUTROPHILS # (AUTO) 5.9 K/ul (2.0-6.9); NEUTROPHILS % (AUTO) 74.1 % (42.2-75.2); PLATELET COUNT 250 10^3/uL (140-440); RDW COEFFICIENT OF VARIATION 12.5 % (11.6-14.8); RED BLOOD COUNT 3.77 10^6/ul (4.20-5.40); WHITE BLOOD COUNT 7.95 K/ul (4.6-10.2)
[2021-05-15] MEDS: ATROVENT HFA INHALER (PER PUFF-WITH SPACER) IH SCH ×3 (05:11→19:23)
[2021-05-15] MEDS: VENTOLIN HFA (PER PUFF-WITH SPACER) IH SCH ×3 (05:11→19:23)
[2021-05-15 05:17] LABS: ALANINE AMINOTRANSFERASE 18.9 U/L (0-35); ALBUMIN 3.38 g/dL (3.5-5.0); ALKALINE PHOSPHATASE 79.6 U/L (53-141); ASPARTATE AMINO TRANSFERASE 32.4 U/L (14-36); BILIRUBIN,TOTAL 0.28 mg/dL (0.2-1.3); BLOOD UREA NITROGEN 15.6 mg/dL (7-17); CALCIUM 8.51 mg/dL (8.4-10.2); CARBON DIOXIDE 24.1 mmol/L (22-30.0); CHLORIDE 106.5 mmol/L (98-107); CREATININE 0.48 mg/dL (0.60-1.30); GLUCOSE 163.4 mg/dL (74-106); POTASSIUM 4.17 mmol/L (3.5-5.1)
[2021-05-15 05:28] LABS: PROTHROMBIN TIME 37.9 SEC (9.3-11.0)
[2021-05-15] MEDS: SODIUM CHLORIDE 1,000 ML IV SCH (05:47)
[2021-05-15] MEDS: HUMULIN R SUBCUT PRN ×4 (06:21→20:25)
--- NOTE | 2021-05-15 08:23 | PCM.PROG ---
Attending Provider: ATTENDING PROVIDER: Dr. SAMUEL BELLO This patient is seen with Lashawn Austin, Nurse Practitioner. DATE OF SERVICE: 05/15/21 SUBJECTIVE: This 86 year old /WHITE F was hospitalized 05/13/21. The patient is resting comfortably. The patient is not feeling much better. Does feel cough has slightly improved. Urine is positive Enterococcus. REVIEW OF SYSTEMS: CONSTITUTIONAL: No night sweats. Fatigue. No fever or chills. Weakness. HEENT: Eyes: No visual changes. No eye pain. No eye discharge. ENT: No runny nose. No epistaxis. No sinus pain. No odynophagia. No congestion. RESPIRATORY: Cough, no congestion. No hemoptysis. No shortness of breath. CARDIOVASCULAR: No angina symptoms. No CHF symptoms. No atypical chest pain for CAD. No palpitations. No orthopnea.. GASTROINTESTINAL: No abdominal pain. No nausea or vomiting. No diarrhea or constipation. No hematemesis. No hematochezia. GENITOURINARY: No urgency. No frequency. No dysuria. No hematuria. No obstructive symptoms. No discharge. No pain. No significant abnormal bleeding. MUSCULOSKELETAL: No musculoskeletal pain; no joint swelling. NEUROLOGICAL: Awake, alert, oriented to time, place and person. No headache. No neck pain. No syncope. No seizures. No dizziness. PSYCHIATRIC: Not anxious. No depression. No suicidal thoughts. No homicidal thoughts. SKIN: No rash. No lesions. No wounds. ENDOCRINE: No unexplained weight loss. No weight gain. HEMATOLOGIC/LYMPHATIC: No anemia. No purpura. No petechiae. No prolonged or excessive bleeding. No palpable lymph nodes. PHYSICAL EXAMINATION: GENERAL: The patient is awake, alert and oriented, sitting in bed in no distress. VITAL SIGNS: Temperature 98.0 F, Pulse 76, Respiratory Rate 18, BP 138/66, Pulse Ox 100% HEENT: Head normocephalic, atraumatic. Eyes: Extraocular muscles are intact. Pupils are equal, round and reactive to light and accommodation. Ears: No lesions. Nose appeared normal. Throat: No exudate or erythema. NECK: Supple. No JVD, no carotid bruit. No lymphadenopathy or thyromegaly. LUNGS: Severely diminished breath sounds. Clear to auscultation. Percussion note normal. Chest symmetrical. HEART: S1, S2, no S3. No murmurs. Irregular heart rate. No cyanosis or clubbing. No ascites. Pulses: Dorsalis pedis and posterior tibial pulses +1 to +2 both sides. ABDOMEN: Soft. Non-tender. Bowel sounds active. No CVA tenderness. No mass felt. EXTREMITIES: No edema. Full range of motion of all extremities, equal. NEUROLOGIC: No focal deficit. Cranial nerves II through XII are grossly intact. No headache. No double vision. SKIN: Not dry. Intact. Turgor-normal. LYMPHATIC: No palpable lymph nodes/no lymphedema. MUSCULOSKELETAL: Normal joints with no swelling. Muscle tone is normal. LAB REVIEW: 05/15/21 04:48 05/15/21 04:48 05/15/21 04:48: Digoxin 1.07 05/15/21 04:48: PT 37.9 H, INR 3.53 05/15/21 04:48: Sodium 136.0, Potassium 4.17, Chloride 106.5, Carbon Dioxide 24.1, Anion Gap 9.57, BUN 15.6, Creatinine 0.48 L, Estimated GFR (MDRD) 123.00, BUN/Creatinine Ratio 32.50, Glucose 163.4 H D, Calcium 8.51, Total Bilirubin 0.28, AST 32.4, ALT 18.9, Alkaline Phosphatase 79.6, Total Protein 6.00 L, Albumin 3.38 L, Globulin 2.62, Albumin/Globulin Ratio 1.29 05/15/21 04:48: WBC 7.95, RBC 3.77 L, Hgb 11.9 L, Hct 34.8 L, MCV 92.3, MCH 31.6 H, MCHC 34.2, RDW Coeff of [place] 12.5, Plt Count 250, Immature Gran % (Auto) 0.9, Neut % (Auto) 74.1, Lymph % (Auto) 18.7, [place] % (Auto) 6.0, Eos % (Auto) 0.0, Baso % (Auto) 0.3, Neut # (Auto) 5.9, Lymph # (Auto) 1.5, [place] # (Auto) 0.5, Eos # (Auto) 0.0, Baso # (Auto) 0.0, Immature Gran # (Auto) 0.1 ASSESSMENT: Please see below. 1. UTI positive Enterococcus 2. Acute COPD exacerbation 3. Diabetes Mellitus type II 4. Atrial fibrillation PLAN: 1. Vancomycin IV pharmacy to dose 2. Discontinue Ertapenem. 3. Discontinue IV fluids. Plan and coordination of the patient's care discussed in the presence of Reporting Lead and nurse. SCRIBED BY: Geoffrey GUADALUPE scribed while in presence of service performed by Dr. Bello/Lashawn Austin APRN on 05/15/21 ([id number])
--- NOTE | 2021-05-15 08:49 | PN ---
DATE OF SERVICE: 05/13/2021 SUBJECTIVE: The patient was seen and examined in the office. The patient had evidence of UTI. She was running some fever at home with weakness to the point where she was unable even walk. The patient was hospitalized. Physical exam and Care Plan was done with the Nurse Practitioner. CONDITION: So far stable. The patient has continued to smoke. Severe chronic lung disease with also evidence of chronic bronchitis. TIME SPENT: More than 30 minutes. Plan and coordination of the patient's care discussed in the presence of nurse. STEFANO
--- NOTE | 2021-05-15 09:29 | PN ---
DATE OF SERVICE: 05/14/2021 SUBJECTIVE: 86 year old white female hospitalized with UTI, dehydration and generalized weakness. The patient was so weak that she was unable to walk. The patient's deteriorated in past couple of days. The patient is somewhat better. She is up and about going to the bathroom with some help. Hydration status has improved. Appetite according to her has improved. REVIEW OF SYSTEMS: CONSTITUTIONAL: No night sweats. No fatigue, malaise, lethargy. No fever or chills.Weakness still. HEENT: Eyes: No visual changes. No eye pain. No eye discharge. ENT: No runny nose. No epistaxis. No sinus pain. No sore throat. No odynophagia. No congestion. RESPIRATORY: No cough, no congestion. No hemoptysis. No shortness of breath. CARDIOVASCULAR: No angina symptoms. No CHF symptoms. No atypical chest pain for CAD. No palpitations. No PND. No orthopnea. GASTROINTESTINAL: No abdominal pain. No nausea or vomiting. No diarrhea or constipation. No hematemesis. No hematochezia. Appetite seems to be improving. GENITOURINARY: No urgency. No frequency. No dysuria. No hematuria. No obstructive symptoms. No discharge. No pain. No significant abnormal bleeding. MUSCULOSKELETAL: No musculoskeletal pain; no joint swelling. NEUROLOGICAL: No headache. No neck pain. No syncope. No seizures. No dizziness. PSYCHIATRIC: Not anxious. No depression. No suicidal thoughts. No homicidal thoughts. SKIN: No rash. No lesions. No wounds. ENDOCRINE: No unexplained weight loss. No weight gain. HEMATOLOGIC/LYMPHATIC: No anemia. No purpura. No petechiae. No prolonged or excessive bleeding. No palpable lymph nodes. PHYSICAL EXAMINATION: VITAL SIGNS: Temperature 97.7, pulse 73, respiratory rate 18, blood pressure 139/67 and pulse ox 93% on 2 liters. HEENT: Head normocephalic, atraumatic. Eyes: Extraocular muscles are intact. Pupils are equal, round and reactive to light and accommodation. Ears: No lesions. Nose appeared normal. Throat: No exudate or erythema. NECK: Supple. No JVD, no carotid bruit. No lymphadenopathy or thyromegaly. LUNGS:Decreased breath sounds with mild wheeze but good air entry. Percussion note normal. Chest symmetrical. HEART: S1, S2, no S3. No murmurs. No cyanosis or clubbing. No ascites. Pulses: Dorsalis pedis and posterior tibial pulses +1 to +2 bilaterally. ABDOMEN: Soft. Nontender. Bowel sounds active. No CVA tenderness. No mass felt. EXTREMITIES: No edema. Full range of motion of all extremities, equal. NEUROLOGIC: No focal deficit. Cranial nerves II through XII are grossly intact. No headache. No double vision. SKIN: Not dry. Intact. Turgor - better than yesterday. LYMPHATIC: No palpable lymph nodes/no lymphedema. MUSCULOSKELETAL: Normal joints with no swelling. Muscle tone is normal. LABS: hgb 12.8, hct 37, WBC 10,000 normal differential, creatinine 0.5, BUN 13, potassium 4.1. Troponin negative. ASSESSMENT: 1. UTI with dehydration seems to be resolving 2. Chronic bronchitis with severe chronic lung disease 3. Coronary bypass surgery PLAN: 1. Continue antibiotics 2. Ertapenem 3. Digoxin level in the morning 4. Continue Steroids, NEBS 5. Counseling for smoking done. CONDITION: Improving TIME SPENT: More than 30 minutes. Plan and coordination of the patient's care discussed in the presence of nurse. STEFANO
[2021-05-15] MEDS: LANTUS SUBCUT SCH ×2 (09:43→20:25)
[2021-05-15] MEDS: NYSTATIN ORAL SUSP PO SCH ×3 (09:47→20:30)
[2021-05-15] MEDS: AMPICILLIN SODIUM 2 GM in SODIUM CHLORIDE 100 ML IV SCH ×3 (09:47→18:53)
[2021-05-15] MEDS: LANOXIN PO SCH (09:47)
[2021-05-15] MEDS: CALAN SR PO SCH ×2 (09:47→20:23)
[2021-05-15] MEDS: DIFLUCAN PO SCH (09:47)
[2021-05-15] MEDS: MULTIVITAMIN TABLET PO SCH (09:48)
[2021-05-15] MEDS: MEGACE PO SCH (09:48)
[2021-05-15] MEDS: DECADRON IM SCH (09:48)
[2021-05-15] MEDS: LEXAPRO PO SCH (09:48)
[2021-05-15] MEDS: SYMBICORT 160-4.5 MCG INHALER IH SCH ×2 (09:50→20:41)
[2021-05-15] MEDS: NORCO 5-325 PO PRN (10:14)
[2021-05-15] MEDS: ZOCOR PO SCH (16:46)
[2021-05-15] MEDS: XANAX PO PRN (20:40)
[2021-05-16] MEDS: AMPICILLIN SODIUM 2 GM in SODIUM CHLORIDE 100 ML IV SCH ×5 (00:15→23:55)
[2021-05-16 05:07] LABS: BASOPHILS % (AUTO) 0.1 % (0.0-3.0); HEMATOCRIT 32.6 % (37.0-47.0); IMMATURE GRANULOCYTE # (AUTO) 0.1 (0.0-1.0); IMMATURE GRANULOCYTE % (AUTO) 1.1 % (0.0-5.0); LYMPHOCYTES # (AUTO) 1.5 K/uL (0.60-3.4); LYMPHOCYTES % (AUTO) 13.6 (10.0-50.0); MEAN CORPUSCULAR HEMOGLOBIN 31.2 pg (27.0-31.0); MEAN CORPUSCULAR HGB CONC 33.7 (31.8-35.4); MEAN CORPUSCULAR VOLUME 92.4 fl (81.0-99.0); MONOCYTES # (AUTO) 0.7 K/uL (0.4-2.0); MONOCYTES % (AUTO) 6.4 (0-10); NEUTROPHILS # (AUTO) 8.6 K/ul (2.0-6.9); NEUTROPHILS % (AUTO) 78.8 % (42.2-75.2); PLATELET COUNT 219 10^3/uL (140-440); RDW COEFFICIENT OF VARIATION 12.7 % (11.6-14.8); RED BLOOD COUNT 3.53 10^6/ul (4.20-5.40); WHITE BLOOD COUNT 10.86 K/ul (4.6-10.2)
[2021-05-16 05:25] LABS: ALBUMIN 3.16 g/dL (3.5-5.0); ALKALINE PHOSPHATASE 70.8 U/L (53-141); ASPARTATE AMINO TRANSFERASE 26.3 U/L (14-36); BILIRUBIN,TOTAL 0.31 mg/dL (0.2-1.3); CALCIUM 8.73 mg/dL (8.4-10.2); CHLORIDE 104.3 mmol/L (98-107); CREATININE 0.49 mg/dL (0.60-1.30); GLUCOSE 185.3 mg/dL (74-106); POTASSIUM 4.27 mmol/L (3.5-5.1); SODIUM 134.5 mmol/L (134.5-145); TOTAL PROTEIN 5.5 g/dL (6.3-8.2)
[2021-05-16 05:45] LABS: PROTHROMBIN TIME 34.5 SEC (9.3-11.0)
[2021-05-16] MEDS: ATROVENT HFA INHALER (PER PUFF-WITH SPACER) IH SCH ×3 (05:46→19:25)
[2021-05-16] MEDS: VENTOLIN HFA (PER PUFF-WITH SPACER) IH SCH ×3 (05:46→19:25)
[2021-05-16] MEDS: HUMULIN R SUBCUT PRN ×4 (06:10→20:27)
[2021-05-16] MEDS: LANOXIN PO SCH (09:10)
[2021-05-16] MEDS: MEGACE PO SCH (09:10)
[2021-05-16] MEDS: CORTISPORIN OTIC SUSP LEFT EAR SCH ×2 (09:10→20:17)
[2021-05-16] MEDS: DIFLUCAN PO SCH (09:10)
[2021-05-16] MEDS: MULTIVITAMIN TABLET PO SCH (09:10)
[2021-05-16] MEDS: CALAN SR PO SCH ×2 (09:10→20:17)
[2021-05-16] MEDS: LEXAPRO PO SCH (09:10)
[2021-05-16] MEDS: NORCO 5-325 PO PRN ×2 (09:11→12:29)
[2021-05-16] MEDS: NYSTATIN ORAL SUSP PO SCH ×3 (09:11→20:17)
[2021-05-16] MEDS: DECADRON IM SCH (09:11)
--- NOTE | 2021-05-16 09:11 | PCM.PROG ---
Attending Provider: ATTENDING PROVIDER: Dr. SAMUEL BELLO DATE OF SERVICE: 05/16/21 SUBJECTIVE: This 86 year old /WHITE F was hospitalized 05/13/21 with UTI and dehydration. The patient's overall condition has improved. No symptoms of UTI. No nausea and no vomiting. Generalized weakness has improved. She has been up walking with assistance. She is having difficulty swallowing with sore throat and left ear ache. Left ear drum looks normal, no fluid noted. Already on Diflucan. REVIEW OF SYSTEMS: CONSTITUTIONAL: No night sweats. No fatigue, malaise, lethargy. No fever or chills. HEENT: Eyes: No visual changes. No eye pain. No eye discharge. ENT: No runny nose. No epistaxis. No sinus pain. No odynophagia. No congestion. RESPIRATORY: No cough, no congestion. No hemoptysis. No shortness of breath. CARDIOVASCULAR: No angina symptoms. No CHF symptoms. No atypical chest pain for CAD. No palpitations. No orthopnea.. GASTROINTESTINAL: No abdominal pain. No nausea or vomiting. No diarrhea or constipation. No hematemesis. No hematochezia. GENITOURINARY: No urgency. No frequency. No dysuria. No hematuria. No obstructive symptoms. No discharge. No pain. No significant abnormal bleeding. MUSCULOSKELETAL: No musculoskeletal pain; no joint swelling. NEUROLOGICAL: Awake, alert, oriented to time, place and person. No headache. No neck pain. No syncope. No seizures. No dizziness. PSYCHIATRIC: Not anxious. No depression. No suicidal thoughts. No homicidal thoughts. SKIN: No rash. No lesions. No wounds. ENDOCRINE: No unexplained weight loss. No weight gain. HEMATOLOGIC/LYMPHATIC: No anemia. No purpura. No petechiae. No prolonged or excessive bleeding. No palpable lymph nodes. PHYSICAL EXAMINATION: GENERAL: The patient is awake, alert and oriented, sitting in bed in no distress. VITAL SIGNS: Temperature 98.2 F, Pulse 67, Respiratory Rate 18, BP 134/60, Pulse Ox 100% HEENT: Head normocephalic, atraumatic. Eyes: Extraocular muscles are intact. Pupils are equal, round and reactive to light and accommodation. Ears: No lesions. Nose appeared normal. Throat: No exudate or erythema. NECK: Supple. No JVD, no carotid bruit. No lymphadenopathy or thyromegaly. LUNGS: Clear to auscultation. Percussion note normal. Chest symmetrical. HEART: S1, S2, no S3. No murmurs. No cyanosis or clubbing. No ascites. Pulses: Dorsalis pedis and posterior tibial pulses +1 to +2 both sides. ABDOMEN: Soft. Non-tender. Bowel sounds active. No CVA tenderness. No mass felt. EXTREMITIES: No edema. Full range of motion of all extremities, equal. NEUROLOGIC: No focal deficit. Cranial nerves II through XII are grossly intact. No headache, no double vision or headache. SKIN: Warm and dry. Intact. Turgor-normal. LYMPHATIC: No palpable lymph nodes/no lymphedema. MUSCULOSKELETAL: Normal joints with no swelling. Muscle tone is normal. LAB REVIEW: 05/16/21 04:43 05/16/21 04:43 05/16/21 04:43: Sodium 134.5, Potassium 4.27, Chloride 104.3, Carbon Dioxide 27.0, Anion Gap 7.47, BUN 16.0, Creatinine 0.49 L, Estimated GFR (MDRD) 120.00, BUN/Creatinine Ratio 32.65, Glucose 185.3 H, Calcium 8.73, Total Bilirubin 0.31, AST 26.3, ALT 21.0, Alkaline Phosphatase 70.8, Total Protein 5.50 L, Albumin 3.16 L, Globulin 2.34, Albumin/Globulin Ratio 1.35 05/16/21 04:43: PT 34.5 H, INR 3.21 05/16/21 04:43: WBC 10.86 H, RBC 3.53 L, Hgb 11.0 L, Hct 32.6 L, MCV 92.4, MCH 31.2 H, MCHC 33.7, RDW Coeff of [place] 12.7, Plt Count 219, Immature Gran % (Auto) 1.1, Neut % (Auto) 78.8 H, Lymph % (Auto) 13.6, [place] % (Auto) 6.4, Eos % (Auto) 0.0, Baso % (Auto) 0.1, Neut # (Auto) 8.6 H, Lymph # (Auto) 1.5, [place] # (Auto) 0.7, Eos # (Auto) 0.0, Baso # (Auto) 0.0, Immature Gran # (Auto) 0.1 ASSESSMENT: Please see below. 1. UTI under control with ampicillin and patient has enterococcus. 2. Dehydration, resolved 3. Chronic bronchitis, patient is still smoking 4. Coronary bypass surgery PLAN: 1. Counseling for smoking done 2. Continue all antibiotics 3. Cortisporin ear drop for each ear 4. Continue to hole Coumadin INR was 3.21. Plan and coordination of the patient's care discussed in the presence of Career Center Director and nurse. SCRIBED BY: Geoffrey GUADALUPE scribed while in presence of service performed by Dr. SAMUEL BELLO on 05/16/21 ([id number])
[2021-05-16] MEDS: LANTUS SUBCUT SCH ×2 (09:14→20:18)
[2021-05-16] MEDS: SYMBICORT 160-4.5 MCG INHALER IH SCH ×2 (09:20→20:17)
[2021-05-16] MEDS: ZOCOR PO SCH (16:31)
[2021-05-16] MEDS: XANAX PO PRN (20:17)
[2021-05-17 05:15] LABS: BASOPHILS % (AUTO) 0.1 % (0.0-3.0); HEMATOCRIT 33.8 % (37.0-47.0); HEMOGLOBIN 11.7 g/dl (12.0-16.0); IMMATURE GRANULOCYTE # (AUTO) 0.1 (0.0-1.0); IMMATURE GRANULOCYTE % (AUTO) 0.9 % (0.0-5.0); LYMPHOCYTES # (AUTO) 1.5 K/uL (0.60-3.4); LYMPHOCYTES % (AUTO) 13.1 (10.0-50.0); MEAN CORPUSCULAR HEMOGLOBIN 31.8 pg (27.0-31.0); MEAN CORPUSCULAR HGB CONC 34.6 (31.8-35.4); MEAN CORPUSCULAR VOLUME 91.8 fl (81.0-99.0); MONOCYTES % (AUTO) 8.2 (0-10); NEUTROPHILS # (AUTO) 9.1 K/ul (2.0-6.9); NEUTROPHILS % (AUTO) 77.7 % (42.2-75.2); PLATELET COUNT 235 10^3/uL (140-440); RDW COEFFICIENT OF VARIATION 12.8 % (11.6-14.8); RED BLOOD COUNT 3.68 10^6/ul (4.20-5.40); WHITE BLOOD COUNT 11.76 K/ul (4.6-10.2)
[2021-05-17 05:25] LABS: PROTHROMBIN TIME 19.8 SEC (9.3-11.0)
[2021-05-17 05:31] LABS: ALANINE AMINOTRANSFERASE 30.9 U/L (0-35); ALBUMIN 3.51 g/dL (3.5-5.0); ALKALINE PHOSPHATASE 81.5 U/L (53-141); ASPARTATE AMINO TRANSFERASE 38.6 U/L (14-36); BILIRUBIN,TOTAL 0.32 mg/dL (0.2-1.3); BLOOD UREA NITROGEN 21.2 mg/dL (7-17); CALCIUM 8.9 mg/dL (8.4-10.2); CARBON DIOXIDE 27.9 mmol/L (22-30.0); CHLORIDE 103.5 mmol/L (98-107); CREATININE 0.59 mg/dL (0.60-1.30); POTASSIUM 4.05 mmol/L (3.5-5.1); SODIUM 136.9 mmol/L (134.5-145); TOTAL PROTEIN 6.04 g/dL (6.3-8.2)
[2021-05-17] MEDS: AMPICILLIN SODIUM 2 GM in SODIUM CHLORIDE 100 ML IV SCH ×3 (05:31→17:42)
[2021-05-17] MEDS: ATROVENT HFA INHALER (PER PUFF-WITH SPACER) IH SCH ×3 (05:39→19:18)
[2021-05-17] MEDS: VENTOLIN HFA (PER PUFF-WITH SPACER) IH SCH ×3 (05:39→19:18)
[2021-05-17] MEDS: HUMULIN R SUBCUT PRN ×4 (06:05→20:19)
[2021-05-17] MEDS: NORCO 5-325 PO PRN (09:07)
[2021-05-17] MEDS: CALAN SR PO SCH ×2 (09:49→20:18)
[2021-05-17] MEDS: DIFLUCAN PO SCH (09:49)
[2021-05-17] MEDS: LANOXIN PO SCH (09:50)
[2021-05-17] MEDS: MEGACE PO SCH (09:50)
[2021-05-17] MEDS: LANTUS SUBCUT SCH ×2 (09:51→20:28)
[2021-05-17] MEDS: LEXAPRO PO SCH (09:51)
[2021-05-17] MEDS: MULTIVITAMIN TABLET PO SCH (09:51)
[2021-05-17] MEDS: CORTISPORIN OTIC SUSP LEFT EAR SCH ×2 (09:53→20:19)
[2021-05-17] MEDS: SYMBICORT 160-4.5 MCG INHALER IH SCH ×2 (09:53→20:19)
[2021-05-17] MEDS: NYSTATIN ORAL SUSP PO SCH ×3 (09:54→20:18)
[2021-05-17] MEDS: PREDNISONE PO SCH (10:08)
[2021-05-17] MEDS: ZOCOR PO SCH (17:36)
[2021-05-17] MEDS: COUMADIN PO SCH (17:37)
[2021-05-17] MEDS: XANAX PO PRN (20:18)
[2021-05-18] MEDS: AMPICILLIN SODIUM 2 GM in SODIUM CHLORIDE 100 ML IV SCH ×2 (00:54→05:54)
[2021-05-18] MEDS: ATROVENT HFA INHALER (PER PUFF-WITH SPACER) IH SCH ×3 (04:58→19:50)
[2021-05-18] MEDS: VENTOLIN HFA (PER PUFF-WITH SPACER) IH SCH ×3 (04:58→19:50)
[2021-05-18 05:05] LABS: BASOPHILS % (AUTO) 0.2 % (0.0-3.0); EOSINOPHILS % (AUTO) 0.2 % (0.0-7.0); HEMATOCRIT 34.6 % (37.0-47.0); HEMOGLOBIN 11.6 g/dl (12.0-16.0); IMMATURE GRANULOCYTE # (AUTO) 0.2 (0.0-1.0); IMMATURE GRANULOCYTE % (AUTO) 2.2 % (0.0-5.0); LYMPHOCYTES # (AUTO) 2.3 K/uL (0.60-3.4); LYMPHOCYTES % (AUTO) 20.7 (10.0-50.0); MEAN CORPUSCULAR HEMOGLOBIN 31.4 pg (27.0-31.0); MEAN CORPUSCULAR HGB CONC 33.5 (31.8-35.4); MEAN CORPUSCULAR VOLUME 93.8 fl (81.0-99.0); MONOCYTES # (AUTO) 1.2 K/uL (0.4-2.0); NEUTROPHILS # (AUTO) 7.3 K/ul (2.0-6.9); NEUTROPHILS % (AUTO) 65.7 % (42.2-75.2); PLATELET COUNT 228 10^3/uL (140-440); RDW COEFFICIENT OF VARIATION 12.9 % (11.6-14.8); RED BLOOD COUNT 3.69 10^6/ul (4.20-5.40); WHITE BLOOD COUNT 11.02 K/ul (4.6-10.2)
[2021-05-18 05:16] LABS: PROTHROMBIN TIME 16.6 SEC (9.3-11.0)
[2021-05-18 05:18] LABS: ALANINE AMINOTRANSFERASE 58.4 U/L (0-35); ALBUMIN 3.11 g/dL (3.5-5.0); ALKALINE PHOSPHATASE 79.8 U/L (53-141); ASPARTATE AMINO TRANSFERASE 58.8 U/L (14-36); BILIRUBIN,TOTAL 0.28 mg/dL (0.2-1.3); BLOOD UREA NITROGEN 17.3 mg/dL (7-17); CALCIUM 8.33 mg/dL (8.4-10.2); CARBON DIOXIDE 31.5 mmol/L (22-30.0); CHLORIDE 104.6 mmol/L (98-107); CREATININE 0.61 mg/dL (0.60-1.30); GLUCOSE 143.1 mg/dL (74-106); POTASSIUM 4.01 mmol/L (3.5-5.1); SODIUM 137.3 mmol/L (134.5-145); TOTAL PROTEIN 5.53 g/dL (6.3-8.2)
[2021-05-18] MEDS: HUMULIN R SUBCUT PRN ×3 (05:55→20:44)
[2021-05-18] MEDS: MEGACE PO SCH (08:36)
[2021-05-18] MEDS: NORCO 5-325 PO PRN (08:36)
[2021-05-18] MEDS: CALAN SR PO SCH ×2 (08:36→20:34)
[2021-05-18] MEDS: PREDNISONE PO SCH (08:36)
[2021-05-18] MEDS: MULTIVITAMIN TABLET PO SCH (08:36)
[2021-05-18] MEDS: LANOXIN PO SCH (08:37)
[2021-05-18] MEDS: CORTISPORIN OTIC SUSP LEFT EAR SCH ×2 (08:37→20:35)
[2021-05-18] MEDS: SYMBICORT 160-4.5 MCG INHALER IH SCH ×2 (08:37→20:35)
[2021-05-18] MEDS: DIFLUCAN PO SCH (08:37)
[2021-05-18] MEDS: NYSTATIN ORAL SUSP PO SCH ×3 (08:37→20:34)
[2021-05-18] MEDS: LEXAPRO PO SCH (08:37)
[2021-05-18] MEDS: LANTUS SUBCUT SCH ×2 (08:38→20:35)
[2021-05-18] MEDS: COUMADIN PO SCH (16:05)
[2021-05-18] MEDS: AMOXICILLIN PO SCH ×2 (16:05→20:34)
[2021-05-18] MEDS: ZOCOR PO SCH (17:34)
[2021-05-18] MEDS: XANAX PO PRN (20:34)
[2021-05-19] MEDS: ATROVENT HFA INHALER (PER PUFF-WITH SPACER) IH SCH (04:46)
[2021-05-19] MEDS: VENTOLIN HFA (PER PUFF-WITH SPACER) IH SCH (04:46)
[2021-05-19 04:59] LABS: BASOPHILS % (AUTO) 0.2 % (0.0-3.0); EOSINOPHILS # (AUTO) 0.1 K/ul (0.0-0.7); EOSINOPHILS % (AUTO) 0.9 % (0.0-7.0); HEMATOCRIT 32.5 % (37.0-47.0); HEMOGLOBIN 11.2 g/dl (12.0-16.0); IMMATURE GRANULOCYTE # (AUTO) 0.4 (0.0-1.0); IMMATURE GRANULOCYTE % (AUTO) 3.5 % (0.0-5.0); LYMPHOCYTES # (AUTO) 2.3 K/uL (0.60-3.4); LYMPHOCYTES % (AUTO) 22.8 (10.0-50.0); MEAN CORPUSCULAR HEMOGLOBIN 32.5 pg (27.0-31.0); MEAN CORPUSCULAR HGB CONC 34.5 (31.8-35.4); MEAN CORPUSCULAR VOLUME 94.2 fl (81.0-99.0); MONOCYTES # (AUTO) 1.1 K/uL (0.4-2.0); MONOCYTES % (AUTO) 10.7 (0-10); NEUTROPHILS # (AUTO) 6.2 K/ul (2.0-6.9); NEUTROPHILS % (AUTO) 61.9 % (42.2-75.2); PLATELET COUNT 217 10^3/uL (140-440); RDW COEFFICIENT OF VARIATION 12.9 % (11.6-14.8); RED BLOOD COUNT 3.45 10^6/ul (4.20-5.40); WHITE BLOOD COUNT 10.04 K/ul (4.6-10.2)
[2021-05-19 05:12] LABS: ALANINE AMINOTRANSFERASE 52.1 U/L (0-35); ALBUMIN 2.96 g/dL (3.5-5.0); ALKALINE PHOSPHATASE 76.5 U/L (53-141); ASPARTATE AMINO TRANSFERASE 39.4 U/L (14-36); BILIRUBIN,TOTAL 0.29 mg/dL (0.2-1.3); BLOOD UREA NITROGEN 13.9 mg/dL (7-17); CALCIUM 8.05 mg/dL (8.4-10.2); CARBON DIOXIDE 29.2 mmol/L (22-30.0); CHLORIDE 105.8 mmol/L (98-107); CREATININE 0.53 mg/dL (0.60-1.30); GLUCOSE 133.6 mg/dL (74-106); POTASSIUM 3.55 mmol/L (3.5-5.1); PROTHROMBIN TIME 25.4 SEC (9.3-11.0); SODIUM 137.5 mmol/L (134.5-145); TOTAL PROTEIN 5.28 g/dL (6.3-8.2)
[2021-05-19 05:43] VITALS: BP 128/49; TEMP 98.2
[2021-05-19] MEDS: NORCO 5-325 PO PRN (07:21)
--- NOTE | 2021-05-19 08:55 | PCM.PROG ---
Attending Provider: ATTENDING PROVIDER: Dr. SAMUEL BELLO This patient is seen with Lashawn Austin, Nurse Practitioner. DATE OF SERVICE: 05/19/21 SUBJECTIVE: This 86 year old /WHITE F was hospitalized 05/13/21. Resting comfortably in bed. States she is ready to go home. Has been afebrile. Reports improved weakness. Vital signs and labs are stable. REVIEW OF SYSTEMS: CONSTITUTIONAL: Weakness. No night sweats. No fatigue, malaise, lethargy. No fever or chills. HEENT: Eyes: No visual changes. No eye pain. No eye discharge. ENT: No runny nose. No epistaxis. No sinus pain. No odynophagia. No congestion. RESPIRATORY: No cough, no congestion. No hemoptysis. No shortness of breath. CARDIOVASCULAR: No angina symptoms. No CHF symptoms. No atypical chest pain for CAD. No palpitations. No orthopnea.. GASTROINTESTINAL: No abdominal pain. No nausea or vomiting. No diarrhea or constipation. No hematemesis. No hematochezia. GENITOURINARY: No urgency. No frequency. No dysuria. No hematuria. No obstructive symptoms. No discharge. No pain. No significant abnormal bleeding. MUSCULOSKELETAL: No musculoskeletal pain; no joint swelling. NEUROLOGICAL: Awake, alert, oriented to time, place and person. No headache. No neck pain. No syncope. No seizures. No dizziness. PSYCHIATRIC: Not anxious. No depression. No suicidal thoughts. No homicidal thoughts. SKIN: No rash. No lesions. No wounds. ENDOCRINE: No unexplained weight loss. No weight gain. HEMATOLOGIC/LYMPHATIC: No anemia. No purpura. No petechiae. No prolonged or excessive bleeding. No palpable lymph nodes. PHYSICAL EXAMINATION: GENERAL: The patient is awake, alert and oriented, lying/sitting in bed in no distress. VITAL SIGNS: Temperature 98.2 F, Pulse 68, Respiratory Rate 18, BP 128/49, Pulse Ox 100% HEENT: Head normocephalic, atraumatic. Eyes: Extraocular muscles are intact. Pupils are equal, round and reactive to light and accommodation. Ears: No lesions. Nose appeared normal. Throat: No exudate or erythema. NECK: Supple. No JVD, no carotid bruit. No lymphadenopathy or thyromegaly. LUNGS: Diminished breath sounds. Clear to auscultation. Percussion note normal. Chest symmetrical. HEART: Irregular heart rate. S1, S2, no S3. No murmurs. No cyanosis or clubbing. No ascites. Pulses: Dorsalis pedis and posterior tibial pulses +1 to +2 both sides. ABDOMEN: Soft. Non-tender. Bowel sounds active. No CVA tenderness. No mass felt. EXTREMITIES: No edema. Full range of motion of all extremities, equal. NEUROLOGIC: No focal deficit. Cranial nerves II through XII are grossly intact. No headache. No double vision. SKIN: Not dry. Intact. Turgor-normal. LYMPHATIC: No palpable lymph nodes/no lymphedema. MUSCULOSKELETAL: Normal joints with no swelling. Muscle tone is normal. LAB REVIEW: 05/19/21 04:30 05/19/21 04:30 05/19/21 04:30: Sodium 137.5, Potassium 3.55, Chloride 105.8, Carbon Dioxide 29.2, Anion Gap 6.05, BUN 13.9, Creatinine 0.53 L, Estimated GFR (MDRD) 109.00, BUN/Creatinine Ratio 26.22, Glucose 133.6 H, Calcium 8.05 L, Total Bilirubin 0.29, AST 39.4 H, ALT 52.1 H, Alkaline Phosphatase 76.5, Total Protein 5.28 L, Albumin 2.96 L, Globulin 2.32, Albumin/Globulin Ratio 1.27 05/19/21 04:30: PT 25.4 H D, INR 2.38 05/19/21 04:30: WBC 10.04, RBC 3.45 L, Hgb 11.2 L, Hct 32.5 L, MCV 94.2, MCH 32.5 H, MCHC 34.5, RDW Coeff of [place] 12.9, Plt Count 217, Immature Gran % (Auto) 3.5, Neut % (Auto) 61.9, Lymph % (Auto) 22.8, [place] % (Auto) 10.7 H, Eos % (Auto) 0.9, Baso % (Auto) 0.2, Neut # (Auto) 6.2, Lymph # (Auto) 2.3, [place] # (Auto) 1.1, Eos # (Auto) 0.1, Baso # (Auto) 0.0, Immature Gran # (Auto) 0.4 ASSESSMENT: Please see below. 1. UTI positive Enterococcus 2. Acute left otitis media 3. Oral candidiasis 4. Diabetes mellitus type 2 5. Severe COPD 6. Atrial fibrillation PLAN: 1. Discharge home today. 2. Oral Amoxicillin 500 mg t.i.d. times 10 days. 3. Resume neb treatments at home. 4. Discontinue Diflucan. 5. Continue Nystatin times 7 days. 6. Continue Polymycin ear drops times 5 days. 7. Discharge home on Coumadin 3 mg and recheck in office next week. 8. Continue Prednisone 5 mg daily Plan and coordination of the patient's care discussed in the presence of Manager Sales and nurse. CONDITION: Stable SCRIBED BY: JACLYN ANDRADE Spragger scribed while in presence of service performed by Dr. Bello/Lashawn Austin APRN on 05/19/21 ([id number])
[2021-05-19] MEDS: NYSTATIN ORAL SUSP PO SCH (08:56)
[2021-05-19] MEDS: LANOXIN PO SCH (08:58)
[2021-05-19] MEDS: MULTIVITAMIN TABLET PO SCH (08:58)
[2021-05-19] MEDS: LEXAPRO PO SCH (08:58)
[2021-05-19] MEDS: PREDNISONE PO SCH (08:58)
[2021-05-19] MEDS: MEGACE PO SCH (08:58)
[2021-05-19] MEDS: CALAN SR PO SCH (08:59)
[2021-05-19] MEDS: LANTUS SUBCUT SCH (08:59)
[2021-05-19] MEDS: DIFLUCAN PO SCH (08:59)
[2021-05-19] MEDS: AMOXICILLIN PO SCH (08:59)
[2021-05-19] MEDS: SYMBICORT 160-4.5 MCG INHALER IH SCH (09:02)
[2021-05-19] MEDS: CORTISPORIN OTIC SUSP LEFT EAR SCH (09:02)
--- NOTE | 2021-05-19 11:09 | CM.DICTOOL ---
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 TUCKER AND DR. INFANTE. RECURRENT PNEUMONIA A-FIB - ON COUMADIN HYPERTENSION ANEMIA PAD LT HAND HEMATOMA AND REMOVAL- DR. STONE 11/2020 DISLIPIDEMIA DM 2,A1C 8.0 - 02/2021 LEG EDEMA MARYANA RECURRENT UTIs RECURRENT FALLS OSTEOPOROSIS RT KNEE OA NEUROPATHY HISTORY OF SMOKING, ON HOME OXYGEN CHRONIC BACK PAIN SURGICAL HISTORY: CABG 1997 HYSTERECTOMY COLONOSCOPY 05/21 DR. BELL CODE STATUS: DO NOT RESUSCITATE LAST VITALS Temp Pulse Resp BP Pulse Ox 98.2 F 85 18 128/49 L 100 05/19/21 05:42 05/19/21 08:58 05/19/21 05:42 05/19/21 05:42 05/19/21 05:42 TAKE THESE MEDICATIONS AT HOME Hydrocodone Bitart/Acetaminophen (Hydrocodone Bit/Acetaminophen 5/325 Mg Tablet) 1 tab PO TID PRN PRN Reason: Pain Last Admin: 05/19/21 07:21 Dose: 1 tab Alprazolam (Alprazolam 0.25 Mg Tablet) 0.25 mg PO BEDTIME PRN PRN Reason: Anxiety Last Admin: 05/18/21 20:34 Dose: 0.25 mg Amoxicillin (Amoxicillin 500 Mg Capsule) 500 mg PO TID MARIS X 10 MORE DAYS Last Admin: 05/19/21 08:59 Dose: 500 mg Digoxin (Digoxin 125 Mcg Tablet) 125 mcg PO DAILY [facility] Last Admin: 05/19/21 08:58 Dose: 125 mcg Escitalopram Oxalate (Escitalopram Oxalate 10 Mg Tablet) 10 mg PO DAILY [facility] Furosemide (Furosemide 20 Mg Tablet) 20 mg PO DAILY PRN PRN Reason: weight gain Gabapentin (Gabapentin 300 Mg Capsule) 300 mg PO BID PRN PRN Reason: Mild Pain Insulin Glargine (Insulin Glargine,Hum.Rec.Anlog 100 Units/Ml) 5 unit SUBCUT BEDTIME [facility] Last Admin: 05/18/21 20:35 Dose: 5 unit Insulin Glargine (Insulin Glargine,Hum.Rec.Anlog 100 Units/Ml) 10 unit SUBCUT DAILY [facility] Last Admin: 05/19/21 08:59 Dose: 5 unit Megestrol Acetate (Megestrol Acetate 40 Mg Tablet) 40 mg PO DAILY [facility] Last Admin: 05/19/21 08:58 Dose: 40 mg Multivitamins (Multivitamin 1 Tab) 1 tab PO DAILY [facility] Last Admin: 05/19/21 08:58 Dose: 1 tab Neomycin/Polymyxin/Hydrocortisone (Neomycin/Polymyxin B/Hc Otic 10 Ml Susp) 2 drop LEFT EAR BID [facility]IS X 5 MORE DAYS Last Admin: 05/19/21 09:02 Dose: 2 drop Nystatin (Nystatin Susp 500,000 Units/5 Ml Cup) 5 ml PO TID [facility] X 7 DAYS Last Admin: 05/19/21 08:56 Dose: 5 ml Potassium Chloride (Potassium Chloride 20 Meq Tab) 20 meq PO DAILY PRN PRN Reason: with lasix Prednisone (Prednisone 5 Mg Tablet) 5 mg PO DAILYWM [facility] Last Admin: 05/19/21 08:58 Dose: 5 mg Simvastatin (Simvastatin 40 Mg Tablet) 40 mg PO QPM [facility] Last Admin: 05/18/21 17:34 Dose: 40 mg Verapamil HCl (Verapamil Hcl 180 Mg Tablet.Er) 180 mg PO BID [facility] Last Admin: 05/19/21 08:59 Dose: 180 mg Warfarin Sodium (Warfarin Sodium 3 Mg Tablet) 3 mg PO 1700 [facility] Last Admin: 05/18/21 16:05 Dose: 3 mg DUONEB 1 VIAL PER NEBULIZER QID PRN PULMICORT 0.5 MG PER NEBULIZER BID ALLERGIES fenofibrate nanocrystallized [From Tricor] Adverse Reaction (Verified 10/11/20 15:15) nitrofurantoin [From Macrobid] Adverse Reaction (Verified 05/13/21 16:49) Diarrhea DISCONTINUED MEDICATIONS Warfarin 4 mg PO 1700 [facility] NEW PRESCRIPTIONS: Amoxicillin 500 mg PO TID X 10 MORE DAYS Megestrol Acetate 40 mg PO DAILY Neomycin/Polymyxin/Hydrocortisone 2 drop LEFT EAR BID X 5 MORE DAYS Nystatin (Nystatin Susp 500,000 Units/5 Ml Cup) 5 ml PO TID X 7 MORE DAYS COUMADIN (Warfarin Sodium 3 Mg Tablet) 3 mg PO 1700 SMOKING: SMOKING CESSATION DISEASE SPECIFIC EDUCATION: SMOKING CESSATION ACTIVITY BLEEDING PRECAUTIONS OXYGEN PRECAUTIONS UTI COPD MEDICATION CHANGES NUTRITIONAL SUPPLEMENTATION LAB REVIEW: 05/19/21 04:30 05/19/21 04:30 05/19/21 04:30: Sodium 137.5, Potassium 3.55, Chloride 105.8, Carbon Dioxide 29.2, Anion Gap 6.05, BUN 13.9, Creatinine 0.53 L, Estimated GFR (MDRD) 109.00, BUN/Creatinine Ratio 26.22, Glucose 133.6 H, Calcium 8.05 L, Total Bilirubin 0.29, AST 39.4 H, ALT 52.1 H, Alkaline Phosphatase 76.5, Total Protein 5.28 L, Albumin 2.96 L, Globulin 2.32, Albumin/Globulin Ratio 1.27 05/19/21 04:30: PT 25.4 H D, INR 2.38 05/19/21 04:30: WBC 10.04, RBC 3.45 L, Hgb 11.2 L, Hct 32.5 L, MCV 94.2, MCH 32.5 H, MCHC 34.5, RDW Coeff of Leland 12.9, Plt Count 217, Immature Gran % (Auto) 3.5, Neut % (Auto) 61.9, Lymph % (Auto) 22.8, Moffat % (Auto) 10.7 H, Eos % (Auto) 0.9, Baso % (Auto) 0.2, Neut # (Auto) 6.2, Lymph # (Auto) 2.3, Moffat # (Auto) 1.1, Eos # (Auto) 0.1, Baso # (Auto) 0.0, Immature Gran # (Auto) 0.4 PLAN: DISCHARGE HOME: HOME TODAY MAY 19, 2021 INDEPENDENTLY AND LIVES WITH ACTIVITY: UP WITH WHEELED WALKER AND SUPERVISION NO STRENUOUS ACTIVITY UNTIL RELEASED BY DOCTOR BLEEDING PRECAUTIONS AND WATCH FOR S/S OF AND INSTRUCTED ON S/S GASTRIC OR INTRACRANIAL BLEEDING OXYGEN PRECAUTIONS DIET: CONSISTENT CARBOHYDRATE, GLUCOSE CONTROL BOOST 3 TIMES DAILY LIMITED EMPTY CALORIE FOODS SUCH CAKES AND CANDY FOLLOW UP: SEE DR. BELLO/ KEAGAN AHUMADA APRN/ NADEEM TORO APRN IN THE OFFICE ON MAY 26, 2021 @ 1045 OXYGEN: AT 2 LITERS A MINUTE PER NASAL CANNULA, NO SMOKING WITH OXYGEN. BLOOD SUGARS: USE FREESTYLE KAYLAN TO CHECK BLOOD SUGARS, CONTINUE SAME REGIMEN OF INSULIN CODE STATUS: DO NOT RESUSCITATE MRS HINOJOSA IS ALERT AND ORIENTED X 4. SHE IS PLEASANT AND TALKATIVE. SHE REPORTS SLIGHT GENERALIZED WEAKNESS. NO ACUTE REPARATORY DIFFICULTY. SHE IS COPD STEROID AND OXYGEN DEPENDENT AT HOME. SKIN WARM DRY AND INTACT. HAS A GENERAL CACHEXIC APPEARANCE, FPC. SHE HAS LOST 5 # SINCE SEPTEMBER 2020. SHE HAS HAD EPISODES OF POOR APPETITE AND TAKEN MEGACE BEFORE, RESTARTED THIS HO SPITALIZATION. EATING BETTER NOW AFTER A WEEK PRIOR OF EATING VERY LITTLE. SHE FEEDS HERSELF, LAST FEW DAYS WITH 75 -100% NUTRITIONAL INTAKE WITH FAMILY ALSO BRINGING HER FOOD. TOTAL PROTEIN 5.28 AND ALBUMIN 2.96. SHE PREFERS CAKES AND CANDIES. SHE IS UP WITH WHEELED WALKER AND INDEPENDENTLY. SHE DENIES ANY ACUTE PAIN OR DISCOMFORT RELATED TO VOIDING. HAS A CHRONIC BACK PAIN AND UTILIZES HYDROCODONE. SHE DOES DRIBBLE BUT IS CONTINENT OF BOWELS. LAST BM 05/18. SHE LIVES WITH HER SPOUSE AND A TEEN GRANDDAUGHTER SHE CARES FOR. HER FAMILY PROVIDES ASSIST AND SHE IS LOOKING INTO ADDITIONAL ASSISTANCE IN THE MORNINGS. MD KEAGAN HENRIQUEZ APRN ALYCE HANNAN, APRN
[2021-05-19] MEDS: HUMULIN R SUBCUT PRN (11:52)
--- NOTE | 2021-05-19 14:02 | PN ---
DATE OF SERVICE: 05/15/2021 SUBJECTIVE: The patient was seen and examined with the Nurse Practitioner. The patient's condition is stable. She had a UTI which is being treated with Ertapenem but we will change it to Ampicillin because the patient has enterococci. Cardiovascular status is stable. Again, counseling for smoking done. TIME SPENT: More than 30 minutes. Plan and coordination of the patient's care discussed in the presence of nurse. STEFANO
--- NOTE | 2021-05-19 14:43 | PN ---
DATE OF SERVICE: 05/17/2021 SUBJECTIVE: 86 year old white female hospitalized with UTI, dehydration and generalized weakness to the point she was not able to ambulate. The patient's condition deteriorated quickly within 24 hours. The patient has continued to smoke. REVIEW OF SYSTEMS: CONSTITUTIONAL: No night sweats. No fatigue, malaise, lethargy. No fever or chills. Feeling much better. HEENT: Eyes: No visual changes. No eye pain. No eye discharge. ENT: No runny nose. No epistaxis. No sinus pain. No sore throat. No odynophagia. No congestion. RESPIRATORY: No cough, no congestion. No hemoptysis. No shortness of breath. CARDIOVASCULAR: No angina symptoms. No CHF symptoms. No atypical chest pain for CAD. No palpitations. No PND. No orthopnea. GASTROINTESTINAL: No abdominal pain. No nausea or vomiting. No diarrhea or constipation. No hematemesis. No hematochezia. Appetite has improved. GENITOURINARY: No urgency. No frequency. No dysuria. No hematuria. No obstructive symptoms. No discharge. No pain. No significant abnormal bleeding. MUSCULOSKELETAL: No musculoskeletal pain; no joint swelling. NEUROLOGICAL: No headache. No neck pain. No syncope. No seizures. No dizziness. PSYCHIATRIC: Not anxious. No depression. No suicidal thoughts. No homicidal thoughts. SKIN: No rash. No lesions. No wounds. ENDOCRINE: No unexplained weight loss. No weight gain. HEMATOLOGIC/LYMPHATIC: No anemia. No purpura. No petechiae. No prolonged or excessive bleeding. No palpable lymph nodes. PHYSICAL EXAMINATION: VITAL SIGNS: Temperature 97.8, pulse 80, respiratory rate 18, blood pressure 145/68 and pulse ox 99% with 2 liters. HEENT: Head normocephalic, atraumatic. Eyes: Extraocular muscles are intact. Pupils are equal, round and reactive to light and accommodation. Ears: No lesions. Nose appeared normal. Throat: No exudate or erythema. NECK: Supple. No JVD, no carotid bruit. No lymphadenopathy or thyromegaly. LUNGS: Decreased breath sounds but clear to auscultation. Percussion note normal. Chest symmetrical. HEART: S1, S2, no S3. No murmurs. No cyanosis or clubbing. No ascites. Pulses: Dorsalis pedis and posterior tibial pulses +1 to +2 bilaterally. ABDOMEN: Soft. Nontender. Bowel sounds active. No CVA tenderness. No mass felt. EXTREMITIES: No edema. Full range of motion of all extremities, equal. NEUROLOGIC: No focal deficit. Cranial nerves II through XII are grossly intact. No headache. No double vision. SKIN: Not dry. Intact. Turgor - normal. LYMPHATIC: No palpable lymph nodes/no lymphedema. MUSCULOSKELETAL: Normal joints with no swelling. Muscle tone is normal. LABS: Hgb 11.7, hct 33, WBC 11,700 normal differential, creatinine 0.5, BUN 21, potassium 4. ASSESSMENT: 1. UTI seems to have resolved. The patient is on Ampicillin with ESBL PLAN: 1. Continue steroids, NEBS 2. Counseling for smoking done. TIME SPENT: More than 30 minutes. Plan and coordination of the patient's care discussed in the presence of nurse. TSEFANO
--- NOTE | 2021-05-19 14:48 | PN ---
DATE OF SERVICE: 05/18/2021 SUBJECTIVE: 86 year old white female hospitalized with UTI, dehydration and generalized weakness. The patient's weakness seems to have subsided. She is ambulate on her own. Appetite has improved. She is ready to go home. Still weak. Mildly short of breath with exertion. REVIEW OF SYSTEMS: CONSTITUTIONAL: No night sweats. No fatigue, malaise, lethargy. No fever or chills. HEENT: Eyes: No visual changes. No eye pain. No eye discharge. ENT: No runny nose. No epistaxis. No sinus pain. No sore throat. No odynophagia. No congestion. RESPIRATORY: No cough, no congestion. No hemoptysis. No shortness of breath. CARDIOVASCULAR: No angina symptoms. No CHF symptoms. No atypical chest pain for CAD. No palpitations. No PND. No orthopnea. GASTROINTESTINAL: No abdominal pain. No nausea or vomiting. No diarrhea or constipation. No hematemesis. No hematochezia. Appetite has improved. GENITOURINARY: No urgency. No frequency. No dysuria. No hematuria. No obstructive symptoms. No discharge. No pain. No significant abnormal bleeding. MUSCULOSKELETAL: No musculoskeletal pain; no joint swelling. NEUROLOGICAL: No headache. No neck pain. No syncope. No seizures. No dizziness. PSYCHIATRIC: Not anxious. No depression. No suicidal thoughts. No homicidal thoughts. SKIN: No rash. No lesions. No wounds. ENDOCRINE: No unexplained weight loss. No weight gain. HEMATOLOGIC/LYMPHATIC: No anemia. No purpura. No petechiae. No prolonged or excessive bleeding. No palpable lymph nodes. PHYSICAL EXAMINATION: VITAL SIGNS: Temperature 98.5, pulse 64, respiratory rate 14, blood pressure 118/47 and pulse ox 99% on 2 liters. HEENT: Head normocephalic, atraumatic. Eyes: Extraocular muscles are intact. Pupils are equal, round and reactive to light and accommodation. Ears: No lesions. Nose appeared normal. Throat: No exudate or erythema. NECK: Supple. No JVD, no carotid bruit. No lymphadenopathy or thyromegaly. LUNGS: Few crepitations at the bases. Dry. Clear to auscultation. Percussion note normal. Chest symmetrical. HEART: S1, S2, no S3. No murmurs. No cyanosis or clubbing. No ascites. Pulses: Dorsalis pedis and posterior tibial pulses +1 to +2 bilaterally. ABDOMEN: Soft. Nontender. Bowel sounds active. No CVA tenderness. No mass felt. EXTREMITIES: No edema. Full range of motion of all extremities, equal. NEUROLOGIC: No focal deficit. Cranial nerves II through XII are grossly intact. No headache. No double vision. SKIN: Not dry. Intact. Turgor - normal. LYMPHATIC: No palpable lymph nodes/no lymphedema. MUSCULOSKELETAL: Normal joints with no swelling. Muscle tone is normal. LABS: Hgb 11.6, hct 34, WBC 11,000 normal differential, creatinine 0.6, BUN 17, potassium 4 ASSESSMENT: 1. UTI seems to have resolved 2. Dehydration resolved; skin turgor a lot better 3. Generalized weakness seems to have subsided 4. The patient has a lot of other comorbidities like severe chronic lung disease with history of smoking 5. Coronary bypass surgery 6. Peripheral arterial disease 7. Diabetes Mellitus. PLAN: 1. Continue to counseling her for smoking. 2. Ampicillin IV will be discontinue. 3. Amoxil 500mg TID daily CONDITION: Stable. TIME SPENT: More than 30 minutes. Plan and coordination of the patient's care discussed in the presence of nurse. STEFANO
--- NOTE | 2021-05-20 12:52 | PN ---
DATE OF SERVICE: 05/19/2021 SUBJECTIVE: The patient was seen and examined with the Nurse Practitioner. The patient is going to be discharged home on Ampicillin. She is up and about feeling better. No UTI symptoms noted. The patient has been counseled for smoking. Discharge summary was done with Nurse Practitioner. CONDITION: Stable on discharge PROGNOSIS: Guarded TIME SPENT: More than 30 minutes. Plan and coordination of the patient's care discussed in the presence of nurse. STEFANO
--- NOTE | 2021-05-20 12:52 | PN ---
05/13/2021: Level 5 05/14/2021: Intermediate 05/15/2021: Intermediate 05/16/2021: Intermediate 05/17/2021: Intermediate 05/18/2021: Intermediate 05/19/2021: D as in discharge MTDD
--- NOTE | 2021-05-21 14:33 | DS ---
DATE OF SERVICE: 05/19/21 CODE STATUS: DO NOT RESUSCITATE FINAL DIAGNOSIS: 1. UTI, POSITIVE ENTEROCOCCUS 2. DEHYDRATION - RESOLVED 3. GENERALIZED WEAKNESS 4. ACUTE LEFT OTITIS MEDIA 5. ORAL CANDIDIASIS 6. DIABETES MELLITUS TYPE 2 7. SEVERE COPD 8. ATRIAL FIBRILLATION HX: 9. CHRONIC BRONCHITIS 10. CAD 11. COPD - STEROID DEPENDENT 12. PULMONARY NODULE, LT 13. 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 TUCKER AND DR. INFANTE. 14. RECURRENT PNEUMONIA 15. A-FIB - ON COUMADIN 16. HYPERTENSION 17. ANEMIA 18. PERIPHERAL ARTERIAL DISEASE 19. LT HAND HEMATOMA AND REMOVAL-DR. STONE 11/2020 20. DYSLIPIDEMIA 21. DIABETES MELLITUS TYPE 2, A1C 8.0 - 02/2021 22. LEG EDEMA 23. GENERALIZED ANXIETY DISORDER 24. RECURRENT URINARY TRACT INFECTIONS 25. RECURRENT FALLS 26. OSTEOPOROSIS 27. RT KNEE OSTEOARTHRITIS 28. NEUROPATHY 29. HISTORY OF SMOKING, ON HOME OXYGEN 30. CHRONIC BACK PAIN SURGICAL HISTORY: 31. CABG 1997 32. HYSTERECTOMY 33. COLONOSCOPY 05/21 DR. RAY NEWTON VITALS Temp Pulse Resp BP Pulse Ox 98.2 F 85 18 128/49 L 100 05/19/21 05:42 05/19/21 08:58 05/19/21 05:42 05/19/21 05:42 05/19/21 05:42 DISCHARGE INSTRUCTIONS: 1. DISCHARGE HOME: HOME TODAY MAY 19, 2021, INDEPENDENTLY AND LIVES WITH . 2. SEE DR. BELLO/KEAGAN AHUMADA APRN/NADEEM TORO APRN IN THE OFFICE ON MAY 26, 2021 @ 8556. 3. OXYGEN: AT 2 LITERS A MINUTE PER NASAL CANNULA, NO SMOKING WITH OXYGEN. 4. BLOOD SUGARS: USE FREESTYLE KAYLAN TO CHECK BLOOD SUGARS, CONTINUE SAME REGIMEN OF INSULIN MEDICATIONS AT DISCHARGE: Hydrocodone Bitart/Acetaminophen (Hydrocodone Bit/Acetaminophen 5/325 Mg Tablet) 1 tab PO TID PRN PRN Reason: Pain Last Admin: 05/19/21 07:21 Dose: 1 tab Alprazolam (Alprazolam 0.25 Mg Tablet) 0.25 mg PO BEDTIME PRN PRN Reason: Anxiety Last Admin: 05/18/21 20:34 Dose: 0.25 mg Amoxicillin (Amoxicillin 500 Mg Capsule) 500 mg PO TID [facility] X 10 MORE DAYS Last Admin: 05/19/21 08:59 Dose: 500 mg Digoxin (Digoxin 125 Mcg Tablet) 125 mcg PO DAILY [facility] Last Admin: 05/19/21 08:58 Dose: 125 mcg Escitalopram Oxalate (Escitalopram Oxalate 10 Mg Tablet) 10 mg PO DAILY [facility] Furosemide (Furosemide 20 Mg Tablet) 20 mg PO DAILY PRN PRN Reason: weight gain Gabapentin (Gabapentin 300 Mg Capsule) 300 mg PO BID PRN PRN Reason: Mild Pain Insulin Glargine (Insulin Glargine,Hum.Rec.Anlog 100 Units/Ml) 5 unit SUBCUT BEDTIME [facility] Last Admin: 05/18/21 20:35 Dose: 5 unit Insulin Glargine (Insulin Glargine,Hum.Rec.Anlog 100 Units/Ml) 10 unit SUBCUT DAILY [facility] Last Admin: 05/19/21 08:59 Dose: 5 unit Megestrol Acetate (Megestrol Acetate 40 Mg Tablet) 40 mg PO DAILY [facility] Last Admin: 05/19/21 08:58 Dose: 40 mg Multivitamins (Multivitamin 1 Tab) 1 tab PO DAILY [facility] Last Admin: 05/19/21 08:58 Dose: 1 tab Neomycin/Polymyxin/Hydrocortisone (Neomycin/Polymyxin B/Hc Otic 10 Ml Susp) 2 drop LEFT EAR BID [facility] X 5 MORE DAYS Last Admin: 05/19/21 09:02 Dose: 2 drop Nystatin (Nystatin Susp 500,000 Units/5 Ml Cup) 5 ml PO TID [facility] X 7 DAYS Last Admin: 05/19/21 08:56 Dose: 5 ml Potassium Chloride (Potassium Chloride 20 Meq Tab) 20 meq PO DAILY PRN PRN Reason: with lasix Prednisone (Prednisone 5 Mg Tablet) 5 mg PO DAILYWM [facility] Last Admin: 05/19/21 08:58 Dose: 5 mg Simvastatin (Simvastatin 40 Mg Tablet) 40 mg PO QPM [facility] Last Admin: 05/18/21 17:34 Dose: 40 mg Verapamil HCl (Verapamil Hcl 180 Mg Tablet.Er) 180 mg PO BID [facility] Last Admin: 05/19/21 08:59 Dose: 180 mg Warfarin Sodium (Warfarin Sodium 3 Mg Tablet) 3 mg PO 1700 [facility] Last Admin: 05/18/21 16:05 Dose: 3 mg DUONEB 1 VIAL PER NEBULIZER QID PRN PULMICORT 0.5 MG PER NEBULIZER BID NEW PRESCRIPTIONS: Amoxicillin 500 mg PO TID X 10 MORE DAYS Megestrol Acetate 40 mg PO DAILY Neomycin/Polymyxin/Hydrocortisone 2 drop LEFT EAR BID X 5 MORE DAYS Nystatin (Nystatin Susp 500,000 Units/5 Ml Cup) 5 ml PO TID X 7 MORE DAYS COUMADIN (Warfarin Sodium 3 Mg Tablet) 3 mg PO 1700 DISCONTINUED MEDICATIONS: Warfarin 4 mg PO 1700 [facility] DIET INSTRUCTIONS: CONSISTENT CARBOHYDRATE, GLUCOSE CONTROL BOOST 3 TIMES DAILY LIMITED EMPTY CALORIE FOODS SUCH CAKES AND CANDY ACTIVITY: UP WITH WHEELED WALKER AND SUPERVISION NO STRENUOUS ACTIVITY UNTIL RELEASED BY DOCTOR BLEEDING PRECAUTIONS AND WATCH FOR S/S OF AND INSTRUCTED ON S/S GASTRIC OR INTRACRANIAL BLEEDING OXYGEN PRECAUTIONS SMOKING: SMOKING CESSATION DISEASE SPECIFIC EDUCATION: SMOKING CESSATION ACTIVITY BLEEDING PRECAUTIONS OXYGEN PRECAUTIONS UTI COPD MEDICATION CHANGES NUTRITIONAL SUPPLEMENTATION HOSPITAL COURSE: This is an 86-year-old white female who is a direct admit from the office. She had presented to the office, was extremely weak and hypotensive. She was unable to stand, was in a wheelchair, was nauseated, had been unable to eat or drink much in the past couple of days. She was directly admitted. UA was abnormal and positive for Enterococcus. She remained afebrile while she was here. Kidney function was elevated on admission. She was given Normal Saline IV at 75 cc only times two bags due to her atrial fibrillation. She does have end-stage COPD which is steroid dependent. Her respiratory status remained stable while she was here. The day after admission complained of some pain in her mouth and in her throat and was found to have oral Candidiasis, was placed on Diflucan 150 mg p.o. daily along with Nystatin Swish and Swallow. This resolved by the time she was ready to go home. She also was insulin dependent diabetic. Her sugar remained stable while she was here. Due to her weight loss which has been ongoing for the past several months, she was restarted on Megace while she was here and instructed to eat and drink well at home. She was started on Megace 40 mg daily which she tolerated. After the urine culture came back she was initially on Ertapenem, was then switched to Ampicillin IV and then placed on Amoxicillin 500 mg t.i.d. for the next 10 days for the Enterococcus. She tolerated the IV then two doses of p.o. well before going home. She will go home in stable condition with new prescriptions for Amoxicillin, Megace, Nystatin. INR remained stable while she was here. She will continue her Coumadin as previously on at home for her atrial fibrillation. We will send her home in stable condition and followup with her next week in the office. TIME SPENT: More than 60 minutes. STEFANO
== END 2021-05-19 12:30 | disposition home or self-care (01) | DRG 868 ==
LOC: LAB 11:09 → MEDSURG B 12:58 → MEDSURG A 05-14 09:02
PROVIDERS: ADMIT Internal Medicine; ATTEND Internal Medicine

== ENCOUNTER 2021-06-02 11:14 | Inpatient (IN) ==
[2021-06-02 11:27] LABS: BORDETELLA PARAPERTUSSIS (PCR) NOT DETECTED (NOT DETECT); BORDETELLA PERTUSSIS (PCR) NOT DETECTED (NOT DETECT); CHLAMYDIA PNEUMONIAE (PCR) NOT DETECTED (NOT DETECT); CORONAVIRUS 229E (PCR) NOT DETECTED (NOT DETECT); CORONAVIRUS HKU1 (PCR) NOT DETECTED (NOT DETECT); CORONAVIRUS NL63 (PCR) NOT DETECTED (NOT DETECT); CORONAVIRUS OC43 (PCR) NOT DETECTED (NOT DETECT); HUMAN METAPNEUMOVIRUS (PCR) NOT DETECTED (NOT DETECT); HUMAN RHINOVIRUS/ENTEROV (PCR) NOT DETECTED (NOT DETECT); INFLUENZA B (PCR) NOT DETECTED (NOT DETECT); MYCOPLASMA PNEUMONIAE (PCR) NOT DETECTED (NOT DETECT); PARAINFLUENZA VIRUS 1 (PCR) NOT DETECTED (NOT DETECT); PARAINFLUENZA VIRUS 2 (PCR) NOT DETECTED (NOT DETECT); PARAINFLUENZA VIRUS 3 (PCR) NOT DETECTED (NOT DETECT); PARAINFLUENZA VIRUS 4 (PCR) NOT DETECTED (NOT DETECT); RESPIRATORY SYNCYTIAL V (PCR) NOT DETECTED (NOT DETECT); SARS_COV_2 (PCR) NOT DETECTED (NOT DETECT)
[2021-06-02 12:16] LABS: ADENOVIRUS (PCR) NOT DETECTED (NOT DETECT)
[2021-06-02] MEDS ORDERED: TYLENOL PO PRN (13:04)
[2021-06-02] MEDS ORDERED: NITROSTAT SL PRN (13:04)
[2021-06-02] MEDS ORDERED: ATROPINE SULFATE PFS IVP PRN (13:04)
[2021-06-02] MEDS ORDERED: ROCEPHIN 1 GM/50 ML D5W 1 GM/50 ML BAG IV SCH (13:30)
[2021-06-02] MEDS ORDERED: VANCOMYCIN 1 GM in SODIUM CHLORIDE 250 ML IV SCH (13:30)
[2021-06-02 13:39] LABS: BASOPHILS % (AUTO) 0.2 % (0.0-3.0); EOSINOPHILS # (AUTO) 0.1 K/ul (0.0-0.7); EOSINOPHILS % (AUTO) 0.6 % (0.0-7.0); HEMOGLOBIN 12.3 g/dl (12.0-16.0); IMMATURE GRANULOCYTE # (AUTO) 0.1 (0.0-1.0); IMMATURE GRANULOCYTE % (AUTO) 0.7 % (0.0-5.0); LYMPHOCYTES # (AUTO) 1.5 K/uL (0.60-3.4); LYMPHOCYTES % (AUTO) 12.8 (10.0-50.0); MEAN CORPUSCULAR HEMOGLOBIN 31.5 pg (27.0-31.0); MEAN CORPUSCULAR HGB CONC 34.2 (31.8-35.4); MEAN CORPUSCULAR VOLUME 92.1 fl (81.0-99.0); MONOCYTES # (AUTO) 0.7 K/uL (0.4-2.0); MONOCYTES % (AUTO) 6.1 (0-10); NEUTROPHILS # (AUTO) 9.6 K/ul (2.0-6.9); NEUTROPHILS % (AUTO) 79.6 % (42.2-75.2); PLATELET COUNT 286 10^3/uL (140-440); RDW COEFFICIENT OF VARIATION 12.9 % (11.6-14.8); RED BLOOD COUNT 3.91 10^6/ul (4.20-5.40); WHITE BLOOD COUNT 12.04 K/ul (4.6-10.2)
[2021-06-02 13:50] LABS: PROTHROMBIN TIME 18.5 SEC (9.3-11.0)
[2021-06-02 13:51] LABS: ALANINE AMINOTRANSFERASE 24.9 U/L (0-35); ALBUMIN 3.69 g/dL (3.5-5.0); ALKALINE PHOSPHATASE 69.3 U/L (53-141); ASPARTATE AMINO TRANSFERASE 31.9 U/L (14-36); BILIRUBIN,TOTAL 0.58 mg/dL (0.2-1.3); BLOOD UREA NITROGEN 22.6 mg/dL (7-17); CALCIUM 9.27 mg/dL (8.4-10.2); CARBON DIOXIDE 21.6 mmol/L (22-30.0); CHLORIDE 104.2 mmol/L (98-107); CREATINE KINASE 61.2 U/L (30-135); CREATININE 0.86 mg/dL (0.60-1.30); POTASSIUM 4.47 mmol/L (3.5-5.1); SODIUM 133.4 mmol/L (134.5-145); TOTAL PROTEIN 6.34 g/dL (6.3-8.2)
[2021-06-02] MEDS: SODIUM CHLORIDE 1,000 ML IV SCH (13:54)
[2021-06-02 13:58] VITALS: BMI 16.5
[2021-06-02 14:02] LABS: TROPONIN I 0.02 ng/ml (0.0000-0.120)
[2021-06-02] MEDS: NORCO 5-325 PO PRN (14:29)
[2021-06-02] MEDS: VANCOMYCIN 500 MG in SODIUM CHLORIDE 100 ML IV SCH ×2 (15:09→21:33)
--- NOTE | 2021-06-02 16:28 | DI ---
EXAM: Chest one view, frontal view only. HISTORY: Chronic obstructive pulmonary disease. COMPARISON: 05/13/2021. FINDINGS: Sternotomy wires present. Atherosclerotic calcifications noted. The heart size is normal . There is no pulmonary vascular congestion. Stable apical scarring and upper lung nodular densitie s. Calcified right lung base nodule again noted. Otherwise, the lungs are clear. No pleural effusi on or pneumothorax is seen. No acute osseous abnormality is identified. IMPRESSION: Stable chronic changes. No new pulmonary findings.
--- NOTE | 2021-06-02 16:55 | CT ---
EXAM: CT Abdomen Pelvis HISTORY: Dehydration, hematuria COMPARISON: 03/14/2019 TECHNIQUE: CT of the Abdomen Pelvis was performed without and with IV contrast. Coronal and sagital reformats were obtained. FINDINGS: Left lower lobe linear opacity measures approximately 0.4 x 2 cm and is in region of previous heterog eneous mass-like consolidation 01/09/2020 CT. Unchanged right lower lobe calcified granuloma. Normal heart size. Unremarkable liver, gallbladder, spleen, pancreas, and adrenal glands. Kidneys symmetrically enhance . Punctate nonobstructive left inferior pole renal calculi. No hydronephrosis or perinephric fat st randing. Right inferior pole renal cyst measures 2.5 cm. Marked heterogeneous appearance of the blad mau with wall thickening and interstitial and intraluminal gas. No adenopathy. Absent uterus. No jeff e fluid or free air. No bowel dilation. Appendix not visualized. Moderate/severe emphysematous changes. Normal diameter a dann. New age indeterminate T12 vertebral body compression deformity with anterior wedging and appr oximately 45% height loss anteriorly. IMPRESSION: 1. Unexpected findings: Severe emphysematous cystitis. Urology consul recommended. 2. Punctate nonobstructive left inferior pole renal calculi. 3. Unexpected findings: New age indeterminate T12 compression deformity with height loss and wedgin g, which could be subacute. Correlate for level of pain. 4. Severe atherosclerosis. All CT scans are performed using dose optimization techniques as appropriate to the performed exam an d include at least one of the following: Automated exposure control, adjustment of the mA and/or kV according t o size, and the use of iterative reconstruction technique.
[2021-06-02] MEDS ORDERED: ZOCOR PO SCH (17:00)
[2021-06-02] MEDS: ZOCOR PO SCH (17:25)
[2021-06-02] MEDS: COUMADIN PO SCH (17:25)
[2021-06-02 17:44] LABS: BILIRUBIN,URINE Negative (NEGATIVE); CLARITY,URINE Cloudy (CLEAR); COLOR,URINE Yellow (YELLOW); GLUCOSE, URINE (UA) 2+ (NEGATIVE); KETONES,URINE Negative (NEGATIVE); LEUKOCYTE ESTERASE ,URINE Negative (NEGATIVE); NITRITE,URINE Negative (NEGATIVE); PH,URINE 5.5 (5-9); PROTEIN,URINE 1+ (NEGATIVE); URINE, BLOOD 3+ (NEGATIVE); UROBILINOGEN,URINE 0.2 (0.2)
[2021-06-02 17:47] LABS: SQUAMOUS EPITHELIAL CELL,UR NOT PRESENT (0-5); URINE RBC, MICROSCOPIC TNTC (0-2); URINE WBC, MICROSCOPIC 0-2 (0-2)
[2021-06-02 17:48] LABS: BACTERIA,URINE 2+ (NOT PRESENT); MUCUS,URINE 1+ (NOT PRESENT)
[2021-06-02] MEDS: DUONEB NEB PRN (19:30)
[2021-06-02] MEDS: CALAN SR PO SCH (20:51)
[2021-06-02] MEDS: NEURONTIN PO SCH (20:51)
[2021-06-02] MEDS ORDERED: CALAN SR PO SCH (21:00)
[2021-06-02] MEDS: XANAX PO PRN (21:04)
[2021-06-02 21:18] LABS: CREATINE KINASE 56.9 U/L (30-135)
[2021-06-02 21:31] LABS: TROPONIN I 0.018 ng/ml (0.0000-0.120)
[2021-06-03 05:24] LABS: BASOPHILS % (AUTO) 0.4 % (0.0-3.0); EOSINOPHILS # (AUTO) 0.5 K/ul (0.0-0.7); EOSINOPHILS % (AUTO) 5.7 % (0.0-7.0); HEMOGLOBIN 11.2 g/dl (12.0-16.0); IMMATURE GRANULOCYTE # (AUTO) 0.1 (0.0-1.0); IMMATURE GRANULOCYTE % (AUTO) 0.8 % (0.0-5.0); LYMPHOCYTES # (AUTO) 2.3 K/uL (0.60-3.4); LYMPHOCYTES % (AUTO) 23.8 (10.0-50.0); MEAN CORPUSCULAR HGB CONC 33.9 (31.8-35.4); MEAN CORPUSCULAR VOLUME 94.3 fl (81.0-99.0); MONOCYTES # (AUTO) 0.8 K/uL (0.4-2.0); MONOCYTES % (AUTO) 8.7 (0-10); NEUTROPHILS # (AUTO) 5.8 K/ul (2.0-6.9); NEUTROPHILS % (AUTO) 60.6 % (42.2-75.2); PLATELET COUNT 218 10^3/uL (140-440); WHITE BLOOD COUNT 9.54 K/ul (4.6-10.2)
[2021-06-03 05:33] LABS: PROTHROMBIN TIME 21.8 SEC (9.3-11.0)
[2021-06-03 05:40] LABS: ALANINE AMINOTRANSFERASE 21.1 U/L (0-35); ALBUMIN 3.13 g/dL (3.5-5.0); ALKALINE PHOSPHATASE 58.5 U/L (53-141); ASPARTATE AMINO TRANSFERASE 25.4 U/L (14-36); BILIRUBIN,TOTAL 0.28 mg/dL (0.2-1.3); BLOOD UREA NITROGEN 15.9 mg/dL (7-17); CALCIUM 8.5 mg/dL (8.4-10.2); CARBON DIOXIDE 25.2 mmol/L (22-30.0); CHLORIDE 109.5 mmol/L (98-107); CREATININE 0.61 mg/dL (0.60-1.30); GLUCOSE 93.7 mg/dL (74-106); POTASSIUM 3.79 mmol/L (3.5-5.1); SODIUM 138.6 mmol/L (134.5-145); TOTAL PROTEIN 5.56 g/dL (6.3-8.2)
[2021-06-03] MEDS: SODIUM CHLORIDE 1,000 ML IV SCH (06:07)
[2021-06-03] MEDS: VANCOMYCIN 500 MG in SODIUM CHLORIDE 100 ML IV SCH (08:29)
[2021-06-03] MEDS: MEGACE PO SCH (08:45)
[2021-06-03] MEDS: LEXAPRO PO SCH (08:45)
[2021-06-03] MEDS: PREDNISONE PO SCH (08:45)
[2021-06-03] MEDS: CALAN SR PO SCH ×2 (08:45→20:36)
[2021-06-03] MEDS: NORCO 5-325 PO PRN ×2 (08:45→15:47)
[2021-06-03] MEDS: LANOXIN PO SCH (08:46)
[2021-06-03] MEDS: NEURONTIN PO SCH ×2 (08:46→20:36)
[2021-06-03] MEDS: LANTUS SUBCUT SCH (08:46)
[2021-06-03] MEDS ORDERED: PREDNISONE PO SCH (09:00)
--- NOTE | 2021-06-03 09:12 | PCM.PROG ---
Attending Provider: ATTENDING PROVIDER: Dr. SAMUEL BELLO This patient is seen with Lashawn Austin, Nurse Practitioner. DATE OF SERVICE: 06/03/21 SUBJECTIVE: This 86 year old /WHITE F was hospitalized 06/02/21. The patient is bed resting comfortably. CT scan of abdomen and pelvis from yesterday revealed emphysematous cystitis. The patient is sitting up today and is afebrile. She has eaten. The patient declines transfer and urology consult at this time. REVIEW OF SYSTEMS: CONSTITUTIONAL: Weakness. No night sweats. No fatigue, malaise, lethargy. No fever or chills. HEENT: Eyes: No visual changes. No eye pain. No eye discharge. ENT: No runny nose. No epistaxis. No sinus pain. No odynophagia. No congestion. RESPIRATORY: No cough, no congestion. No hemoptysis. No shortness of breath. CARDIOVASCULAR: No angina symptoms. No CHF symptoms. No atypical chest pain for CAD. No palpitations. No orthopnea.. GASTROINTESTINAL: No abdominal pain. No nausea or vomiting. No diarrhea or constipation. No hematemesis. No hematochezia. GENITOURINARY: Hematuria. MUSCULOSKELETAL: No musculoskeletal pain; no joint swelling. NEUROLOGICAL: Awake, alert, oriented to time, place and person. No headache. No neck pain. No syncope. No seizures. No dizziness. PSYCHIATRIC: Not anxious. No depression. No suicidal thoughts. No homicidal thoughts. SKIN: No rash. No lesions. No wounds. ENDOCRINE: No unexplained weight loss. No weight gain. HEMATOLOGIC/LYMPHATIC: No anemia. No purpura. No petechiae. No prolonged or excessive bleeding. No palpable lymph nodes. PHYSICAL EXAMINATION: GENERAL: The patient is awake, alert and oriented, lying/sitting in bed in no distress. VITAL SIGNS: Temperature 98.4 F, Pulse 70, Respiratory Rate 16, BP 145/65, Pul se Ox 100% HEENT: Head normocephalic, atraumatic. Eyes: Extraocular muscles are intact. Pupils are equal, round and reactive to light and accommodation. Ears: No lesions. Nose appeared normal. Throat: No exudate or erythema. NECK: Supple. No JVD, no carotid bruit. No lymphadenopathy or thyromegaly. LUNGS: Diminished breath sounds with bilateral wheeze. Percussion note normal. Chest symmetrical. HEART: S1, S2, no S3. No murmurs. No cyanosis or clubbing. No ascites. Pulses: Dorsalis pedis and posterior tibial pulses +1 to +2 both sides. ABDOMEN: Soft. Non-tender. Bowel sounds active. No CVA tenderness. No mass felt. EXTREMITIES: No edema. Full range of motion of all extremities, equal. NEUROLOGIC: No focal deficit. Cranial nerves II through XII are grossly intact. No headache. No double vision. SKIN: Not dry. Intact. Turgor-normal. LYMPHATIC: No palpable lymph nodes/no lymphedema. MUSCULOSKELETAL: Normal joints with no swelling. Muscle tone is normal. LAB REVIEW: 06/03/21 05:16 06/03/21 05:16 06/03/21 05:16: Sodium 138.6, Potassium 3.79, Chloride 109.5 H, Carbon Dioxide 25.2, Anion Gap 7.69, BUN 15.9, Creatinine 0.61, Estimated GFR (MDRD) 93.00, BUN/Creatinine Ratio 26.06, Glucose 93.7 D, Calcium 8.50, Total Bilirubin 0.28, AST 25.4, ALT 21.1, Alkaline Phosphatase 58.5, Total Protein 5.56 L, Albumin 3.13 L, Globulin 2.43, Albumin/Globulin Ratio 1.28 06/03/21 05:16: PT 21.8 H, INR 2.05 06/03/21 05:16: WBC 9.54, RBC 3.50 L, Hgb 11.2 L, Hct 33.0 L, MCV 94.3, MCH 32.0 H, MCHC 33.9, RDW Coeff of [place] 13.0, Plt Count 218, Immature Gran % (Auto) 0.8, Neut % (Auto) 60.6, Lymph % (Auto) 23.8, Miller % (Auto) 8.7, Eos % (Auto) 5.7, Baso % (Auto) 0.4, Neut # (Auto) 5.8, Lymph # (Auto) 2.3, Miller # (Auto) 0.8, Eos # (Auto) 0.5, Baso # (Auto) 0.0, Immature Gran # (Auto) 0.1 06/02/21 21:04: Total Creatine Kinase 56.9, Troponin I 0.018 06/02/21 17:35: Urine Color Yellow, Urine Clarity Cloudy, Urine pH 5.5, Ur Specific [place] 1.010, Urine Protein 1+ H, Urine Glucose (UA) 2+ H, Urine Ketones Negative, Urine Blood 3+ H, Urine Nitrite Negative, Urine Bilirubin Negative, Urine Urobilinogen 0.2, Ur Leukocyte Esterase Negative, Urine Microscopic RBC Tntc, Urine Microscopic WBC 0-2, Ur Squamous Epith Cells Not present, Urine Bacteria 2+, Urine Mucus 1+ 06/02/21 13:24: PT 18.5 H, INR 1.74 06/02/21 13:24: Sodium 133.4 L, Potassium 4.47, Chloride 104.2, Carbon Dioxide 21.6 L, Anion Gap 12.07, BUN 22.6 H, Creatinine 0.86, Estimated GFR (MDRD) 63.00, BUN/Creatinine Ratio 26.27, Glucose 248.0 H, Calcium 9.27, Total Bilirubin 0.58, AST 31.9, ALT 24.9, Alkaline Phosphatase 69.3, Total Creatine Kinase 61.2, Troponin I 0.020, Total Protein 6.34, Albumin 3.69, Globulin 2.65, Albumin/Globulin Ratio 1.39 06/02/21 13:24: WBC 12.04 H, RBC 3.91 L, Hgb 12.3, Hct 36.0 L, MCV 92.1, MCH 31.5 H, MCHC 34.2, RDW Coeff of [place] 12.9, Plt Count 286, Immature Gran % (Auto) 0.7, Neut % (Auto) 79.6 H, Lymph % (Auto) 12.8, Miller % (Auto) 6.1, Eos % (Auto) 0.6, Baso % (Auto) 0.2, Neut # (Auto) 9.6 H, Lymph # (Auto) 1.5, Miller # (Auto) 0.7, Eos # (Auto) 0.1, Baso # (Auto) 0.0, Immature Gran # (Auto) 0.1 06/02/21 11:20: Adenovirus (PCR) Not detected, B. pertussis DNA (PCR) Not detected, B.parapertussis DNA PCR Not detected, C. pneumoniae DNA (PCR) Not detected, Coronavirus OC43 (PCR) Not detected, Coronavirus HKU1 (PCR) Not detected, Coronavirus 229E (PCR) Not detected, Coronavirus NL63 (PCR) Not detected, Human Metapneumovir PCR Not detected, Influenza Type A (PCR) Not detected, Influenza B (RT-PCR) Not detected, M. pneumoniae (PCR) Not detected, Parainfluenza 1 (PCR) Not detected, Parainfluenza 2 (PCR) Not detected, Parainfluenza 3 (PCR) Not detected, Parainfluenza 4 (PCR) Not detected, RSV (PCR) Not detected, Entero/Rhino (PCR) Not detected, SARS-CoV-2 (PCR) Not detected ASSESSMENT: Please see below. 1. UTI, culture pending. 2. Emphysematous cystitis. 3. Diabetes mellitus, Type 2. 4. Atrial fibrillation. PLAN: 1. Zosyn and Vancomycin, pharmacy to dose. 2. Decrease IV fluids to 50 cc/hr. 3. Stop Rocephin. 4. Continue Coumadin with INR. 5. Humalog for sliding scale per Dr. Bello's coverage. Plan and coordination of the patient's care discussed in the presence of Staffing Assistant and nurse. CONDITION: Stable SCRIBED BY: Geoffrey HIGH scribed while in presence of service performed by Dr. Bello/Lashawn Austin APRN on 06/03/21 ([id number])
[2021-06-03] MEDS: INVANZ 1 GM in SODIUM CHLORIDE 50 ML IV SCH (09:46)
--- NOTE | 2021-06-03 13:00 | HP ---
DATE OF SERVICE: 06/02/21 HISTORY OF PRESENT ILLNESS: 86-year-old white female with complaint of bloody urine times three days. The patient is weak, unable to walk. She cannot eat. PAST MEDICAL HISTORY: COPD Hypertension Diabetes mellitus Type 2 Chronic bronchitis Anemia Atrial fibrillation Smoking Pulmonary nodule, left Peripheral arterial disease CAD/CABG Lung cancer, left MENSTRUAL HISTORY: Mammogram 09/21 PAST SURGICAL HISTORY: CABG Hysterectomy Colonoscopy, 05/21 Dr. Maloney REVIEW OF SYSTEMS: CONSTITUTIONAL: Fatigue. No fever. HEENT: No sinus drainage, no sore throat. RESPIRATORY: No cough, no congestion. CARDIOVASCULAR: Shortness of breath as usual. No atypical chest pain for coronary artery disease. No angina, CHF symptoms, or palpitations. GASTROINTESTINAL: No melena or abdominal pain. No GERD. GENITOURINARY: No hematuria, no prostatism, no polyuria. FROG FARMER: Dizziness. No blackout, no headache, no double vision. Gait: Wheelchair. MUSCULOSKELETAL: Osteoarthritis pain. ENDOCRINE: No weight loss, no weight gain. SKIN: Not dry, no rash. PSYCHIATRIC: Not anxious, no depression, no suicidal thoughts, no homicidal thoughts. SOCIAL HISTORY: Smoker. . Three children. No alcohol use. FAMILY HISTORY: Mother . Father . Brother(s) - 4. Sister(s) - 4. MEDICATIONS: [place] 5/325 mg t.i.d. Duoneb q.i.d. Xanax 0.25 mg h.s. Pulmicort nebulizer b.i.d. Lanoxin 125 mcg p.o. daily MARIS Lexapro 10 mg p.o. daily Lasix 20 mg daily Neurontin 300 mg b.i.d. Lantus 20 units daily K-Dur 20 mg daily Zocor 40 mg daily Calan SR 180 mg b.i.d. Coumadin 4 mg daily 02 2L/NC h.s. p.r.n. Prednisone 5 mg daily The patient had Covid vaccine [employer] February 2021 ALLERGIES: TRICOR, 02/06/21 KEFLEX (sick) PHYSICAL EXAMINATION: V/S: Pulse 80, BP 90/52, temperature 98.2, 02 sat 98%. Unable to weigh. GENERAL APPEARANCE: Oriented times three. HEENT: Pale. Dry mucous membranes. NECK: No JVP, no bruits. RESPIRATORY: Severely decreased breath sounds. Lungs are clear. CARDIOVASCULAR: S1, S2, no S3, no murmur. No cyanosis, clubbing. No ascites. GI/ABDOMEN: No tenderness. Bowel sounds are active. EXTREMITIES: No edema, pulses +1, equal. FROG FARMER: Deep tendon reflexes, sensory, motor and gait all normal. RECTAL/PELVIC: Colonoscopy 2013, Dr. Maloney. Pelvic: Refused all. ASSESSMENT: 1. GROSS HEMATURIA 2. UTI 3. DEHYDRATION 4. RECURRENT UTI 5. HISTORY LEFT HAND HEMATOMA/REMOVAL- PATTEN 11/28 6. DIABETES MELLITUS, TYPE 2 A1C PLAN: 1. Routine telemetry orders. 2. CBC, CMP, INR now and daily. 3. Vancomycin IV - pharmacy to dose. 4. IVF NS @ 75 cc/hr. 5. Rocephin 1 gm IV daily. 6. Blood culture times two. 7. Urinalysis with urine culture. 8. Continue home medications. 9. CT abdomen and pelvis with and without contrast today. 10. 02 @ 1 to 2L. 11. Regular diet. 12. DNR. 13. The patient refused to be evaluated by ER first. 14. Refuses to be transferred despite findings. TIME SPENT: More than 70 minutes. MTDD
[2021-06-03] MEDS: DUONEB NEB PRN (14:40)
[2021-06-03] MEDS: ZOCOR PO SCH (17:27)
[2021-06-03] MEDS: COUMADIN PO SCH (17:27)
[2021-06-03] MEDS: HUMALOG SUBCUT PRN ×2 (17:45→20:37)
[2021-06-03] MEDS: XANAX PO PRN (20:36)
[2021-06-04] MEDS: SODIUM CHLORIDE 1,000 ML IV SCH (02:17)
[2021-06-04 05:25] LABS: BASOPHILS # (AUTO) 0.1 K/uL (0-0.2); BASOPHILS % (AUTO) 0.5 % (0.0-3.0); EOSINOPHILS # (AUTO) 0.4 K/ul (0.0-0.7); EOSINOPHILS % (AUTO) 4.1 % (0.0-7.0); HEMATOCRIT 32.3 % (37.0-47.0); HEMOGLOBIN 10.7 g/dl (12.0-16.0); IMMATURE GRANULOCYTE # (AUTO) 0.1 (0.0-1.0); IMMATURE GRANULOCYTE % (AUTO) 0.9 % (0.0-5.0); LYMPHOCYTES # (AUTO) 2.3 K/uL (0.60-3.4); LYMPHOCYTES % (AUTO) 22.6 (10.0-50.0); MEAN CORPUSCULAR HEMOGLOBIN 31.6 pg (27.0-31.0); MEAN CORPUSCULAR HGB CONC 33.1 (31.8-35.4); MEAN CORPUSCULAR VOLUME 95.3 fl (81.0-99.0); MONOCYTES # (AUTO) 0.9 K/uL (0.4-2.0); MONOCYTES % (AUTO) 8.9 (0-10); NEUTROPHILS # (AUTO) 6.3 K/ul (2.0-6.9); PLATELET COUNT 206 10^3/uL (140-440); RED BLOOD COUNT 3.39 10^6/ul (4.20-5.40); WHITE BLOOD COUNT 10.04 K/ul (4.6-10.2)
[2021-06-04 05:38] LABS: ALBUMIN 2.97 g/dL (3.5-5.0); ALKALINE PHOSPHATASE 60.1 U/L (53-141); ASPARTATE AMINO TRANSFERASE 27.8 U/L (14-36); BILIRUBIN,TOTAL 0.24 mg/dL (0.2-1.3); BLOOD UREA NITROGEN 15.1 mg/dL (7-17); CALCIUM 8.31 mg/dL (8.4-10.2); CARBON DIOXIDE 25.6 mmol/L (22-30.0); CHLORIDE 109.3 mmol/L (98-107); CREATININE 0.51 mg/dL (0.60-1.30); GLUCOSE 156.3 mg/dL (74-106); POTASSIUM 4.04 mmol/L (3.5-5.1); SODIUM 137.3 mmol/L (134.5-145); TOTAL PROTEIN 5.27 g/dL (6.3-8.2)
[2021-06-04] MEDS: HUMALOG SUBCUT PRN ×3 (06:05→20:36)
[2021-06-04] MEDS: INVANZ 1 GM in SODIUM CHLORIDE 50 ML IV SCH (08:48)
[2021-06-04] MEDS: LEXAPRO PO SCH (08:48)
[2021-06-04] MEDS: PREDNISONE PO SCH (08:49)
[2021-06-04] MEDS: MEGACE PO SCH (08:49)
[2021-06-04] MEDS: LANOXIN PO SCH (08:49)
[2021-06-04] MEDS: NEURONTIN PO SCH ×2 (08:49→20:36)
[2021-06-04] MEDS: CALAN SR PO SCH ×2 (08:49→20:35)
[2021-06-04] MEDS: LANTUS SUBCUT SCH (08:50)
[2021-06-04] MEDS: NORCO 5-325 PO PRN ×2 (09:14→14:24)
--- NOTE | 2021-06-04 14:02 | PN ---
DATE OF SERVICE: 06/02/2021 SUBJECTIVE: The patient was seen and examined in the office and then hospitalized. The patient is extremely weak and tired and fatigue. Urine is coca cola colored. The patient physically had very poor skin turgor. Oxygen saturation 90% on room air. The patient has continued to smoke with multiple comorbidities likely coronary bypass surgery. Congestive heart failure, diabetes mellitus, severe chronic lung disease and malnutrition. Current UTI with ESBL. PLAN: 1. Hospitalize patient and start empirically for urinary tract infection 2. We will do urine cultures 3. Routine telemetry orders TIME SPENT: More than 30 minutes. Plan and coordination of the patient's care discussed in the presence of nurse. STEFANO
[2021-06-04] MEDS ORDERED: VENTOLIN HFA (PER PUFF-WITH SPACER) IH PRN (15:28)
[2021-06-04] MEDS ORDERED: ATROVENT HFA INHALER (PER PUFF-WITH SPACER) IH PRN (15:28)
[2021-06-04] MEDS: ZOCOR PO SCH (17:01)
[2021-06-04] MEDS: COUMADIN PO SCH (17:02)
[2021-06-05] MEDS: SODIUM CHLORIDE 1,000 ML IV SCH (04:04)
[2021-06-05 05:28] VITALS: BP 141/65; TEMP 97.8
[2021-06-05 05:33] LABS: ALANINE AMINOTRANSFERASE 26.5 U/L (0-35); ALBUMIN 3.26 g/dL (3.5-5.0); ALKALINE PHOSPHATASE 67.5 U/L (53-141); ASPARTATE AMINO TRANSFERASE 37.3 U/L (14-36); BILIRUBIN,TOTAL 0.3 mg/dL (0.2-1.3); BLOOD UREA NITROGEN 13.5 mg/dL (7-17); CALCIUM 8.76 mg/dL (8.4-10.2); CARBON DIOXIDE 28.6 mmol/L (22-30.0); CHLORIDE 106.6 mmol/L (98-107); CREATININE 0.47 mg/dL (0.60-1.30); GLUCOSE 137.6 mg/dL (74-106); POTASSIUM 3.93 mmol/L (3.5-5.1); PROTHROMBIN TIME 20.6 SEC (9.3-11.0); SODIUM 138.3 mmol/L (134.5-145); TOTAL PROTEIN 5.73 g/dL (6.3-8.2)
[2021-06-05 05:41] LABS: BASOPHILS # (AUTO) 0.1 K/uL (0-0.2); BASOPHILS % (AUTO) 0.5 % (0.0-3.0); EOSINOPHILS # (AUTO) 0.3 K/ul (0.0-0.7); EOSINOPHILS % (AUTO) 2.9 % (0.0-7.0); HEMOGLOBIN 11.7 g/dl (12.0-16.0); IMMATURE GRANULOCYTE # (AUTO) 0.1 (0.0-1.0); IMMATURE GRANULOCYTE % (AUTO) 1.3 % (0.0-5.0); LYMPHOCYTES # (AUTO) 2.4 K/uL (0.60-3.4); LYMPHOCYTES % (AUTO) 24.3 (10.0-50.0); MEAN CORPUSCULAR HEMOGLOBIN 31.5 pg (27.0-31.0); MEAN CORPUSCULAR HGB CONC 33.4 (31.8-35.4); MEAN CORPUSCULAR VOLUME 94.1 fl (81.0-99.0); MONOCYTES # (AUTO) 0.9 K/uL (0.4-2.0); MONOCYTES % (AUTO) 8.9 (0-10); NEUTROPHILS # (AUTO) 6.2 K/ul (2.0-6.9); NEUTROPHILS % (AUTO) 62.1 % (42.2-75.2); PLATELET COUNT 224 10^3/uL (140-440); RDW COEFFICIENT OF VARIATION 12.9 % (11.6-14.8); RED BLOOD COUNT 3.72 10^6/ul (4.20-5.40); WHITE BLOOD COUNT 9.96 K/ul (4.6-10.2)
--- NOTE | 2021-06-05 09:13 | PCM.PROG ---
Attending Provider: ATTENDING PROVIDER: Dr. SAMUEL BOYCE This patient is seen with Lashawn Austin, Nurse Practitioner. DATE OF SERVICE: 06/05/21 SUBJECTIVE: This 86 year old /WHITE F was hospitalized 06/02/21. The patient is resting comfortably. She has been afebrile. Still has pink tinged urine. The patient is only feeling some better. She is having increased back pain. CT showed new T12 compression fracture. REVIEW OF SYSTEMS: CONSTITUTIONAL: No night sweats. No fatigue, malaise, lethargy. No fever or chills. Weakness. HEENT: Eyes: No visual changes. No eye pain. No eye discharge. ENT: No runny nose. No epistaxis. No sinus pain. No odynophagia. No congestion. RESPIRATORY: No cough, no congestion. No hemoptysis. No shortness of breath. CARDIOVASCULAR: No angina symptoms. No CHF symptoms. No atypical chest pain for CAD. No palpitations. No orthopnea.. GASTROINTESTINAL: No abdominal pain. No nausea or vomiting. No diarrhea or constipation. No hematemesis. No hematochezia. GENITOURINARY: No urgency. No frequency. No dysuria. Hematuria. No obstructive symptoms. No discharge. No pain. No significant abnormal bleeding. MUSCULOSKELETAL: No musculoskeletal pain; no joint swelling. Back pain. NEUROLOGICAL: Awake, alert, oriented to time, place and person. No headache. No neck pain. No syncope. No seizures. No dizziness. PSYCHIATRIC: Not anxious. No depression. No suicidal thoughts. No homicidal thoughts. SKIN: No rash. No lesions. No wounds. ENDOCRINE: No unexplained weight loss. No weight gain. HEMATOLOGIC/LYMPHATIC: No anemia. No purpura. No petechiae. No prolonged or excessive bleeding. No palpable lymph nodes. PHYSICAL EXAMINATION: GENERAL: The patient is awake, alert and oriented, lying in bed in no distress. VITAL SIGNS: Temperature 97.8 F, Pulse 82, Respiratory Rate 18, BP 141/65, Pulse Ox 99% HEENT: Head normocephalic, atraumatic. Eyes: Extraocular muscles are intact. Pupils are equal, round and reactive to light and accommodation. Ears: No lesions. Nose appeared normal. Throat: No exudate or erythema. NECK: Supple. No JVD, no carotid bruit. No lymphadenopathy or thyromegaly. LUNGS: Diminished breath sounds. Clear to auscultation. Percussion note normal. Chest symmetrical. HEART: S1, S2, no S3. No murmurs. No cyanosis or clubbing. No ascites. Pulses: Dorsalis pedis and posterior tibial pulses +1 to +2 both sides. ABDOMEN: Soft. Non-tender. Bowel sounds active. No CVA tenderness. No mass felt. EXTREMITIES: No edema. Full range of motion of all extremities, equal. NEUROLOGIC: No focal deficit. Cranial nerves II through XII are grossly intact. No headache. No double vision. SKIN: Not dry. Intact. Turgor-normal. LYMPHATIC: No palpable lymph nodes/no lymphedema. MUSCULOSKELETAL: Normal joints with no swelling. Muscle tone is normal. LAB REVIEW: 06/05/21 05:06 06/05/21 05:06 06/05/21 05:06: Sodium 138.3, Potassium 3.93, Chloride 106.6, Carbon Dioxide 28.6, Anion Gap 7.03, BUN 13.5, Creatinine 0.47 L, Estimated GFR (MDRD) 126.00, BUN/Creatinine Ratio 28.72, Glucose 137.6 H, Calcium 8.76, Total Bilirubin 0.30, AST 37.3 H, ALT 26.5, Alkaline Phosphatase 67.5, Total Protein 5.73 L, Albumin 3.26 L, Globulin 2.47, Albumin/Globulin Ratio 1.31 06/05/21 05:06: PT 20.6 H, INR 1.93 06/05/21 05:06: WBC 9.96, RBC 3.72 L, Hgb 11.7 L, Hct 35.0 L, MCV 94.1, MCH 31.5 H, MCHC 33.4, RDW Coeff of [place] 12.9, Plt Count 224, Immature Gran % (Auto) 1.3, Neut % (Auto) 62.1, Lymph % (Auto) 24.3, [place] % (Auto) 8.9, Eos % (Auto) 2.9, Baso % (Auto) 0.5, Neut # (Auto) 6.2, Lymph # (Auto) 2.4, [place] # (Auto) 0.9, Eos # (Auto) 0.3, Baso # (Auto) 0.1, Immature Gran # (Auto) 0.1 ASSESSMENT: Please see below. 1. Emphysema cystitis with hematuria 2. UTI positive e-coli, positive ESBL 3. Diabetes mellitus II 4. COPD PLAN: 1. Continue IV antibiotics 2. May likely be candidate for swing bed for continued IV therapy. The patient is unable to take PO Macrobid. 3. [place] is helping with continued back pain 4. Continue sliding scale for insulin coverage. Plan and coordination of the patient's care discussed in the presence of Case Skylar teixeira and nurse. SCRIBED BY: Geoffrey GUADALUPE scribed while in presence of service performed by Dr. Boyce/Lashawn Austin APRN on 06/05/21 ([id number])
[2021-06-05] MEDS: LANOXIN PO SCH (09:14)
[2021-06-05] MEDS: MEGACE PO SCH (09:14)
[2021-06-05] MEDS: LANTUS SUBCUT SCH (09:15)
[2021-06-05] MEDS: NEURONTIN PO SCH (09:15)
[2021-06-05] MEDS: CALAN SR PO SCH (09:15)
[2021-06-05] MEDS: PREDNISONE PO SCH (09:15)
[2021-06-05] MEDS: LEXAPRO PO SCH (09:15)
[2021-06-05] MEDS: NORCO 5-325 PO PRN (09:15)
[2021-06-05] MEDS: INVANZ 1 GM in SODIUM CHLORIDE 50 ML IV SCH (09:20)
--- NOTE | 2021-06-05 11:53 | PN ---
DATE OF SERVICE: 06/03/2021 SUBJECTIVE: The patient was seen and examined with the Nurse Practitioner. The patient is feeling a lot better. Hydration status has improved. Urine seems to be clearing up. The patient has emphysematous cystitis. Question is whether to put the patient on Whitaker Catheter permanently and does not have any urinary incontinence during the day time. TIME SPENT: More than 30 minutes. Plan and coordination of the patient's care discussed in the presence of nurse. STEFANO
--- NOTE | 2021-06-05 13:10 | PN ---
DATE OF SERVICE: 06/04/2021 SUBJECTIVE: 86 year old white female hospitalized with gross hematuria. The patient has UTI and has emphysematous cystitis, ESBL. The patient is on Ertapenem. She has a Whitaker Catheter. REVIEW OF SYSTEMS: CONSTITUTIONAL: No night sweats. No fatigue, malaise, lethargy. No fever or chills. Feeling somewhat better and wants to go home. HEENT: Eyes: No visual changes. No eye pain. No eye discharge. ENT: No runny nose. No epistaxis. No sinus pain. No sore throat. No odynophagia. No congestion. RESPIRATORY: No cough, no congestion. No hemoptysis. No shortness of breath. CARDIOVASCULAR: No angina symptoms. No CHF symptoms. No atypical chest pain for CAD. No palpitations. No PND. No orthopnea. GASTROINTESTINAL: No abdominal pain. No nausea or vomiting. No diarrhea or constipation. No hematemesis. No hematochezia. GENITOURINARY: No urgency. No frequency. No dysuria. No hematuria. No obstructive symptoms. No discharge. No pain. No significant abnormal bleeding. MUSCULOSKELETAL: No musculoskeletal pain; no joint swelling. NEUROLOGICAL: No headache. No neck pain. No syncope. No seizures. No dizziness. PSYCHIATRIC: Not anxious. No depression. No suicidal thoughts. No homicidal thoughts. SKIN: No rash. No lesions. No wounds. ENDOCRINE: No unexplained weight loss. No weight gain. HEMATOLOGIC/LYMPHATIC: No anemia. No purpura. No petechiae. No prolonged or excessive bleeding. No palpable lymph nodes. PHYSICAL EXAMINATION: VITAL SIGNS: Temperature 97.7, pulse 73, respiratory rate 20, blood pressure 133/60 and pulse ox 98%. HEENT: Head normocephalic, atraumatic. Eyes: Extraocular muscles are intact. Pupils are equal, round and reactive to light and accommodation. Ears: No lesions. Nose appeared normal. Throat: No exudate or erythema. NECK: Supple. No JVD, no carotid bruit. No lymphadenopathy or thyromegaly. LUNGS: Decreased breath sounds but clear to auscultation. Percussion note normal. Chest symmetrical. HEART: S1, S2, no S3. No murmurs. No cyanosis or clubbing. No ascites. Pulses: Dorsalis pedis and posterior tibial pulses +1 to +2 bilaterally. ABDOMEN: Soft. Nontender. Bowel sounds active. No CVA tenderness. No mass felt. EXTREMITIES: No edema. Full range of motion of all extremities, equal. NEUROLOGIC: No focal deficit. Cranial nerves II through XII are grossly intact. No headache. No double vision. SKIN: Not dry. Intact. Turgor - normal. LYMPHATIC: No palpable lymph nodes/no lymphedema. MUSCULOSKELETAL: Normal joints with no swelling. Muscle tone is normal. LABS: hgb 10.7, hct 32,W CB 10,000 normal differential, creatinine 0.5, BUN 15, potassium 4 ASSESSMENT: 1. UTI with cystitis with hematuria 2. Dehydration, resolved 3. Appetite has improved 4. The patient has ESBL, she is on Ertapenem. Catheter has been inserted which we may have to take it out. The patient doesn't have any daytime urinary incontinence. She is advised to evacuate her bladder every couple of hours if possible. and drink lots of fluids. CONDITION: Stable. TIME SPENT: More than 30 minutes. Plan and coordination of the patient's care discussed in the presence of nurse. STEFANO
--- NOTE | 2021-06-06 14:33 | DS ---
DATE OF SERVICE: 06/05/2021 FINAL DIAGNOSIS: 1. Urinary tract infection, positive e-coli, positive ESBL 2. Gross Hematuria 3. Emphysematous cystitis 4. Diabetes Mellitus type II 5. Atrial fibrillation on Coumadin 6. Steroid dependent COPD 7. Generalized weakness 8. Chronic anemia DISCHARGE INSTRUCTIONS: Discharge to swing bed. MEDICATIONS AT DISCHARGE: [place] 5/325 mg t.i.d. Duoneb q.i.d. Xanax 0.25 mg h.s. Pulmicort nebulizer b.i.d. Lanoxin 125 mcg p.o. daily MARIS Lexapro 10 mg p.o. daily Lasix 20 mg daily Neurontin 300 mg b.i.d. Lantus 20 units daily K-Dur 20 mg daily Zocor 40 mg daily Calan SR 180 mg b.i.d. Coumadin 4 mg daily 02 2L/NC h.s. p.r.n. Prednisone 5 mg daily The patient had Covid vaccine [employer] February 2021 DIET INSTRUCTIONS: As tolerated ACTIVITY: As tolerated. HOSPITAL COURSE: 86 year old white female who presented to our office complaining that she had had blood in her urine for the past two days. She gave a urine specimen in our office and had gross hematuria, it was also nitrate positive in our office as well. She was hypotensive. We direct admitted her to the hospital. Respiratory panel was negative. Chest x-ray was unchanged. Blood cultures were negative. Urine culture was done and was positive for e-coli and ESBL. She was initially started on Vancomycin and Zosyn and then once realized that we were looking at e-coli with ESBL we switched her to IV Invanz and discontinued the others. She was also started on fluids normal saline IV at 75cc an hour. She was initially dehydrated with slight elevation in kidney function. She was placed on sliding scale for titer glycemic control. We obtained a CT scan of the abdomen and pelvis which showed emphysematous cystitis. The patient prior to admission refused to go to the emergency room. She stated that she wanted to stay at our hospital. She did not want to see any other doctors besides Dr. Boyce. After the findings on the CAT scan she is also refused to be transferred and refused to see a urologist. Whitaker Catheter was placed to help with bladder empting. Again she was on IV Invanz. We have her on her regular Lantus as well as sliding scale insulin for titer glycemic control which has been good. She has been afebrile. She is feeling some what better. Due to the results of the urine culture she is going to need IV antibiotics for at least 10 days. The only oral antibiotic that was sensitive to the ESBL is Macrobid and it is not the best fit and the last time the patient became extremely sick when given oral Macrobid so we are going to admit her to swing bed for continuation of IV antibiotics. TIME SPENT: More than 60 minutes. MTDD
--- NOTE | 2021-06-10 08:54 | PN ---
DATE OF SERVICE: 06/04/21 SUBJECTIVE: The patient was seen and examined with the nurse practitioner. The patient is going to be discharged from regular admission and put on swing bed. The patient's condition is stable. She is on antibiotic for emphysematous cystitis of the bladder. She is on Ertapenem. She is going to need IV Ertapenem. The patient's cardiovascular status is stable. The patient still goes out to smoke. Condition stable at time of discharge to the swing bed. TIME SPENT: More than 30 minutes. STEFANO
--- NOTE | 2021-06-10 08:56 | PN ---
BILLING 06/02/21 ADMISSION DAY LEVEL 5 06/03/21 INTERMEDIATE 06/04/21 INTERMEDIATE 06/05/21 FINAL DAY - DISCHARGE FROM REGULAR ADMISSION. THE PATIENT WILL BE ON THE SWING BED FROM 06/05/21. STEFANO
== END 2021-06-05 13:22 | disposition swing bed (61) | DRG 696 ==
LOC: LAB 11:14 → MEDSURG A 12:52
PROVIDERS: ADMIT Internal Medicine; ATTEND Internal Medicine

== ENCOUNTER 2021-07-22 10:42 | Inpatient (IN) ==
[2021-07-22 10:59] LABS: BORDETELLA PARAPERTUSSIS (PCR) NOT DETECTED (NOT DETECT); BORDETELLA PERTUSSIS (PCR) NOT DETECTED (NOT DETECT); CHLAMYDIA PNEUMONIAE (PCR) NOT DETECTED (NOT DETECT); CORONAVIRUS 229E (PCR) NOT DETECTED (NOT DETECT); CORONAVIRUS HKU1 (PCR) NOT DETECTED (NOT DETECT); CORONAVIRUS NL63 (PCR) NOT DETECTED (NOT DETECT); CORONAVIRUS OC43 (PCR) NOT DETECTED (NOT DETECT); HUMAN METAPNEUMOVIRUS (PCR) NOT DETECTED (NOT DETECT); HUMAN RHINOVIRUS/ENTEROV (PCR) NOT DETECTED (NOT DETECT); INFLUENZA B (PCR) NOT DETECTED (NOT DETECT); MYCOPLASMA PNEUMONIAE (PCR) NOT DETECTED (NOT DETECT); PARAINFLUENZA VIRUS 1 (PCR) NOT DETECTED (NOT DETECT); PARAINFLUENZA VIRUS 2 (PCR) NOT DETECTED (NOT DETECT); PARAINFLUENZA VIRUS 3 (PCR) NOT DETECTED (NOT DETECT); PARAINFLUENZA VIRUS 4 (PCR) NOT DETECTED (NOT DETECT); RESPIRATORY SYNCYTIAL V (PCR) NOT DETECTED (NOT DETECT); SARS_COV_2 (PCR) NOT DETECTED (NOT DETECT)
[2021-07-22 11:50] LABS: ADENOVIRUS (PCR) NOT DETECTED (NOT DETECT)
[2021-07-22 12:48] VITALS: BMI 16.5
[2021-07-22] MEDS ORDERED: TYLENOL PO PRN (13:02)
[2021-07-22] MEDS ORDERED: ATROPINE SULFATE PFS IVP PRN (13:02)
[2021-07-22] MEDS ORDERED: NITROSTAT SL PRN (13:02)
[2021-07-22 13:21] LABS: BASOPHILS % (AUTO) 0.2 % (0.0-3.0); EOSINOPHILS % (AUTO) 0.1 % (0.0-7.0); HEMATOCRIT 36.6 % (37.0-47.0); HEMOGLOBIN 11.9 g/dl (12.0-16.0); IMMATURE GRANULOCYTE # (AUTO) 0.1 (0.0-1.0); IMMATURE GRANULOCYTE % (AUTO) 1.6 % (0.0-5.0); LYMPHOCYTES # (AUTO) 0.7 K/uL (0.60-3.4); LYMPHOCYTES % (AUTO) 8.1 (10.0-50.0); MEAN CORPUSCULAR HEMOGLOBIN 30.1 pg (27.0-31.0); MEAN CORPUSCULAR HGB CONC 32.5 (31.8-35.4); MEAN CORPUSCULAR VOLUME 92.4 fl (81.0-99.0); MONOCYTES # (AUTO) 0.4 K/uL (0.4-2.0); MONOCYTES % (AUTO) 4.3 (0-10); NEUTROPHILS # (AUTO) 7.1 K/ul (2.0-6.9); NEUTROPHILS % (AUTO) 85.7 % (42.2-75.2); PLATELET COUNT 288 10^3/uL (140-440); RDW COEFFICIENT OF VARIATION 12.8 % (11.6-14.8); RED BLOOD COUNT 3.96 10^6/ul (4.20-5.40); WHITE BLOOD COUNT 8.31 K/ul (4.6-10.2)
[2021-07-22 13:29] LABS: ABG O2 HGB 92.7 % (95-100); ABG PH 7.45 (7.35-7.45); BEecf -0.4 (-2.0-3.0); COHb 5.7 (0.5-1.5); HCO3 23.6 (21-28); MetHb 0.6 (0-1.5); TCO2 24.6 (19-24); sO2 96.3 % (94-98); tHb 11.5 g/dl (11.7-17.4)
[2021-07-22 13:34] LABS: ALANINE AMINOTRANSFERASE 28.2 U/L (0-35); ALBUMIN 3.69 g/dL (3.5-5.0); ALKALINE PHOSPHATASE 81.6 U/L (53-141); BILIRUBIN,TOTAL 0.26 mg/dL (0.2-1.3); BLOOD UREA NITROGEN 26.7 mg/dL (7-17); CALCIUM 9.14 mg/dL (8.4-10.2); CARBON DIOXIDE 25.9 mmol/L (22-30.0); CHLORIDE 101.9 mmol/L (98-107); CREATINE KINASE 63.7 U/L (30-135); CREATININE 0.74 mg/dL (0.60-1.30); GLUCOSE 294.4 mg/dL (74-106); POTASSIUM 5.01 mmol/L (3.5-5.1); TOTAL PROTEIN 6.46 g/dL (6.3-8.2)
[2021-07-22] MEDS: DIFLUCAN PO SCH (13:41)
[2021-07-22 13:45] LABS: TROPONIN I 0.013 ng/ml (0.0000-0.120)
--- NOTE | 2021-07-22 13:48 | DI ---
EXAM: CHEST FRONTAL VIEW HISTORY: Shortness of breath COMPARISON: 06/02/2021 FINDINGS: Heart size and mediastinum remain within normal limits. Heart size remains within phong l limits. Atherosclerotic disease is noted. Sternotomy wires are present. There is diffuse, chroni c appearing interstitial accentuation. There are scattered pulmonary nodular densities similar to th at previously seen. These have been described on prior CT thorax dated 02/05/2020. No definite conso lidated pneumonia. No vascular congestion, pneumothorax or pleural fluid. IMPRESSION: 1. Chronic lung changes with no definite acute infiltrate or pneumonia. 2. Pulmonary nodules remain suspicious. Periodic follow-up CT thorax is recommended. 3. Atherosclerotic disease.
[2021-07-22] MEDS: SODIUM CHLORIDE 1,000 ML IV SCH (13:52)
[2021-07-22] MEDS ORDERED: DUONEB NEB SCH (14:00)
[2021-07-22] MEDS: INVANZ 1 GM in SODIUM CHLORIDE 50 ML IV SCH (14:00)
[2021-07-22] MEDS: DECADRON IM SCH (14:48)
[2021-07-22] MEDS: NYSTATIN ORAL SUSP PO SCH ×2 (14:48→20:31)
[2021-07-22] MEDS: NORCO 5-325 PO PRN (14:48)
[2021-07-22] MEDS ORDERED: HUMALOG SUBCUT SCH ×3 (17:00)
[2021-07-22] MEDS: HUMALOG SUBCUT SCH ×2 (17:07→20:32)
[2021-07-22 17:20] LABS: BILIRUBIN,URINE Negative (NEGATIVE); CLARITY,URINE Clear (CLEAR); COLOR,URINE Yellow (YELLOW); GLUCOSE, URINE (UA) 2+ (NEGATIVE); KETONES,URINE Negative (NEGATIVE); LEUKOCYTE ESTERASE ,URINE Negative (NEGATIVE); NITRITE,URINE Negative (NEGATIVE); PH,URINE 6.5 (5-9); PROTEIN,URINE Negative (NEGATIVE); URINE, BLOOD Negative (NEGATIVE); UROBILINOGEN,URINE 0.2 (0.2)
[2021-07-22] MEDS ORDERED: ATROVENT HFA INHALER (PER PUFF-WITH SPACER) IH SCH (18:00)
[2021-07-22] MEDS: ATROVENT HFA INHALER (PER PUFF-WITH SPACER) IH SCH (20:00)
[2021-07-22] MEDS: VENTOLIN HFA (PER PUFF-WITH SPACER) IH SCH (20:00)
[2021-07-22] MEDS: XANAX PO PRN (20:32)
[2021-07-22] MEDS: CALAN SR PO SCH (20:32)
[2021-07-22] MEDS ORDERED: CALAN SR PO SCH (21:00)
[2021-07-22 21:20] LABS: CREATINE KINASE 59.7 U/L (30-135)
[2021-07-22 21:29] LABS: TROPONIN I < 0.012 ng/ml (0.0000-0.120)
[2021-07-23] MEDS: SODIUM CHLORIDE 1,000 ML IV SCH (02:52)
[2021-07-23] MEDS: ATROVENT HFA INHALER (PER PUFF-WITH SPACER) IH SCH ×4 (04:50→19:45)
[2021-07-23] MEDS: VENTOLIN HFA (PER PUFF-WITH SPACER) IH SCH ×4 (04:50→19:45)
[2021-07-23 04:52] LABS: BASOPHILS % (AUTO) 0.1 % (0.0-3.0); HEMATOCRIT 34.1 % (37.0-47.0); HEMOGLOBIN 11.1 g/dl (12.0-16.0); IMMATURE GRANULOCYTE # (AUTO) 0.1 (0.0-1.0); IMMATURE GRANULOCYTE % (AUTO) 1.2 % (0.0-5.0); LYMPHOCYTES # (AUTO) 1.1 K/uL (0.60-3.4); MEAN CORPUSCULAR HGB CONC 32.6 (31.8-35.4); MEAN CORPUSCULAR VOLUME 92.2 fl (81.0-99.0); MONOCYTES # (AUTO) 0.6 K/uL (0.4-2.0); MONOCYTES % (AUTO) 6.4 (0-10); NEUTROPHILS # (AUTO) 6.8 K/ul (2.0-6.9); NEUTROPHILS % (AUTO) 79.3 % (42.2-75.2); PLATELET COUNT 273 10^3/uL (140-440); RDW COEFFICIENT OF VARIATION 12.6 % (11.6-14.8); WHITE BLOOD COUNT 8.62 K/ul (4.6-10.2)
[2021-07-23 05:04] LABS: ALANINE AMINOTRANSFERASE 23.9 U/L (0-35); ALBUMIN 3.39 g/dL (3.5-5.0); ALKALINE PHOSPHATASE 68.1 U/L (53-141); ASPARTATE AMINO TRANSFERASE 23.5 U/L (14-36); BILIRUBIN,TOTAL 0.19 mg/dL (0.2-1.3); CALCIUM 8.77 mg/dL (8.4-10.2); CARBON DIOXIDE 25.3 mmol/L (22-30.0); CHLORIDE 105.3 mmol/L (98-107); CREATININE 0.54 mg/dL (0.60-1.30); GLUCOSE 183.7 mg/dL (74-106); POTASSIUM 4.95 mmol/L (3.5-5.1); SODIUM 136.2 mmol/L (134.5-145); TOTAL PROTEIN 5.99 g/dL (6.3-8.2)
[2021-07-23 05:16] LABS: PROTHROMBIN TIME 47.2 SEC (9.3-11.0)
[2021-07-23] MEDS: HUMALOG SUBCUT SCH ×4 (06:44→20:42)
[2021-07-23] MEDS: INVANZ 1 GM in SODIUM CHLORIDE 50 ML IV SCH (08:50)
[2021-07-23] MEDS: DIFLUCAN PO SCH (08:51)
[2021-07-23] MEDS: LANOXIN PO SCH (08:51)
[2021-07-23] MEDS: MEGACE PO SCH (08:51)
[2021-07-23] MEDS: CALAN SR PO SCH ×2 (08:51→20:41)
[2021-07-23] MEDS: LEXAPRO PO SCH (08:51)
[2021-07-23] MEDS: NYSTATIN ORAL SUSP PO SCH ×3 (08:51→20:41)
[2021-07-23] MEDS: PREDNISONE PO SCH (08:53)
[2021-07-23] MEDS: LANTUS SUBCUT SCH (08:54)
[2021-07-23] MEDS: DECADRON IM SCH (08:54)
--- NOTE | 2021-07-23 09:25 | HP ---
DATE OF SERVICE: 07/22/2021 REASON FOR HOSPITALIZATION/HISTORY OF PRESENT ILLNESS: UTI 07/18/2021 positive for e-coli and positive ESBL. Can't walk-short of breath. Can't eat thrush in mouth. PAST MEDICAL HISTORY: COPD Hypertension Chronic bronchitis Left lung cancer Diabetes mellitus type II Anemia Atrial fibrillation Smoking Pulmonary nodule left PAD CAD/CABG PAST SURGICAL HISTORY: CABG Hysterectomy Colonoscopy 05/21 Dr. Maloney REVIEW OF SYSTEMS: CONSTITUTIONAL: No fever, Fatigue. HEENT: No sinus drainage, no sore throat. RESPIRATORY: Cough, no congestion. CARDIOVASCULAR: No atypical chest pain for coronary artery disease. No angina, CHF symptoms, palpitations. Shortness of breath. GASTROINTESTINAL: No melena or abdominal pain. No GERD. Decreased appetite. GENITOURINARY: No hematuria, no prostatism, no polyuria. FOREIGN LANGUAGE INSTRUCTOR: No blackout, no dizziness, no headache, no double vision. MUSCULOSKELETAL: No osteoarthritis pain, no joint swelling. ENDOCRINE: No weight loss, no weight gain. SKIN: Not dry, no rash. PSYCHIATRIC: Not anxious, no depression, no suicidal thoughts, no homicidal thoughts. SOCIAL HISTORY: Marital Status: . Alcohol Usage: No. Tobacco Usage: Yes. FAMILY HISTORY: Father Mother Brother 4 Sister 4 MEDICATIONS: [place] 5-325mg TID DUO NEBS QID Xanax 0.25mg HS Pulmicort NEB BID Lanoxin 125mg Lexapro 10mg daily Lasix 20mg daily Neurontin 300mg BID Megace Lantus 20mg daily K-Dur 20mg Zocor 40mg daily Calan SR 180mg BID Coumadin 4mg daily O2 2 liters nasal canula Prednisone 5mg daily Novalog sliding scale Macrobid 100mg BID ALLERGIES: Tricor Keflex sick 02/06/2021 PHYSICAL EXAMINATION: V/S: Pulse 94, blood pressure 104/54, temperature 98.8, oxygen saturation 96%. GENERAL APPEARANCE: Oriented times three. HEENT: Normal. NECK: No JVP, no bruits. RESPIRATORY: Severely decreased breath sounds. CARDIOVASCULAR: S1, S2, no S3, no murmur. No cyanosis, clubbing. No ascites. GI/ABDOMEN: No tenderness. Bowel sounds are active. EXTREMITIES: edema, pulses +1, equal. FOREIGN LANGUAGE INSTRUCTOR: Deep tendon reflexes, sensory, motor and gait all normal. RECTAL: Dr. Maloney 2014/PELVIC: The patient refused all ASSESSMENT: 1. UTI positive ESBL 2. Dehydration 3. COPD exacerbation 4. Thrush 5. UTI, recurrent 6. Right upper lobe nodule 7. Diabetes mellitus type II 8. Atrial fibrillation 9. COPD 10.Left left lung mass Dr. Vazquez/Bala 11.Recurrent falls 12.Chronic bronchitis 13.Leg edema 14. Right knee osteoarthritis 15.Anxiety 16.PAD 17.CAD 18. CABG 19.Osteoporosis 20.Dyslipdiemia PLAN: 1. Patient to have respiratory panel by PCR in drive through 2. Routine telemetry orders, no cardiac enzymes 3. CBC, CMP and INR now and daily 4. U/A with culture 5. IV Ertapenem- Pharmacy to dose 6. Normal saline IV at 75cc an hour times one liter 7. ABG times one on room air 8. Chest x-ray 9. Diflucan 150mg daily 10.1cc Decadrone IM daily (4mg) 11.Continue home medications 12.Sliding scale TID 13.O2 at 1-2 liters 14.Regular diet 15.Digoxin level 16.Nystatin slush TID ADDENDUM: Chest x-ray shows chronic lung changes with no definite acute infiltrate or pneumonia, pulmonary nodules as previously known. ABG on room air; pH 7.45, pco2 34, pO2 80, O2 saturation 92%, sodium 135, potassium 5, BUN 26, creatinine 0.74, glucose 294, Digoxin 1.5, INR 5.29, hgb 11.9, hct 36.6. TIME SPENT: More than 70 minutes. MTDD
[2021-07-23] MEDS: NORCO 5-325 PO PRN (20:41)
[2021-07-23] MEDS: XANAX PO PRN (21:38)
[2021-07-24] MEDS: VENTOLIN HFA (PER PUFF-WITH SPACER) IH SCH ×4 (05:00→19:15)
[2021-07-24] MEDS: ATROVENT HFA INHALER (PER PUFF-WITH SPACER) IH SCH ×4 (05:00→19:15)
[2021-07-24 05:27] LABS: BASOPHILS % (AUTO) 0.2 % (0.0-3.0); HEMATOCRIT 33.5 % (37.0-47.0); HEMOGLOBIN 11.1 g/dl (12.0-16.0); IMMATURE GRANULOCYTE # (AUTO) 0.1 (0.0-1.0); IMMATURE GRANULOCYTE % (AUTO) 1.1 % (0.0-5.0); LYMPHOCYTES # (AUTO) 1.4 K/uL (0.60-3.4); LYMPHOCYTES % (AUTO) 11.3 (10.0-50.0); MEAN CORPUSCULAR HEMOGLOBIN 30.4 pg (27.0-31.0); MEAN CORPUSCULAR HGB CONC 33.1 (31.8-35.4); MEAN CORPUSCULAR VOLUME 91.8 fl (81.0-99.0); MONOCYTES % (AUTO) 7.7 (0-10); NEUTROPHILS # (AUTO) 10.2 K/ul (2.0-6.9); NEUTROPHILS % (AUTO) 79.7 % (42.2-75.2); PLATELET COUNT 287 10^3/uL (140-440); RDW COEFFICIENT OF VARIATION 12.7 % (11.6-14.8); RED BLOOD COUNT 3.65 10^6/ul (4.20-5.40)
[2021-07-24 05:41] LABS: ALANINE AMINOTRANSFERASE 23.5 U/L (0-35); ALBUMIN 3.25 g/dL (3.5-5.0); BILIRUBIN,TOTAL 0.2 mg/dL (0.2-1.3); CALCIUM 8.73 mg/dL (8.4-10.2); CARBON DIOXIDE 26.3 mmol/L (22-30.0); CHLORIDE 103.8 mmol/L (98-107); CREATININE 0.56 mg/dL (0.60-1.30); GLUCOSE 198.9 mg/dL (74-106); POTASSIUM 4.49 mmol/L (3.5-5.1); SODIUM 135.3 mmol/L (134.5-145); TOTAL PROTEIN 5.85 g/dL (6.3-8.2)
[2021-07-24 06:00] LABS: PROTHROMBIN TIME 27.2 SEC (9.3-11.0)
[2021-07-24] MEDS: HUMALOG SUBCUT SCH ×4 (06:00→20:08)
[2021-07-24] MEDS: NORCO 5-325 PO PRN ×2 (07:34→17:00)
[2021-07-24] MEDS: LANOXIN PO SCH (08:19)
[2021-07-24] MEDS: NYSTATIN ORAL SUSP PO SCH ×3 (08:19→20:18)
[2021-07-24] MEDS: CALAN SR PO SCH ×2 (08:20→20:08)
[2021-07-24] MEDS: LEXAPRO PO SCH (08:20)
[2021-07-24] MEDS: DIFLUCAN PO SCH (08:20)
[2021-07-24] MEDS: LANTUS SUBCUT SCH (08:21)
[2021-07-24] MEDS: DECADRON IM SCH (08:21)
[2021-07-24] MEDS: MEGACE PO SCH (08:21)
[2021-07-24] MEDS: INVANZ 1 GM in SODIUM CHLORIDE 50 ML IV SCH (08:37)
--- NOTE | 2021-07-24 08:50 | PCM.PROG ---
Attending Provider: ATTENDING PROVIDER: Dr. SAMUEL BELLO This patient is seen with Lashawn Austin, Nurse Practitioner. DATE OF SERVICE: 07/24/21 SUBJECTIVE: This 86 year old /WHITE F was hospitalized 07/22/21. The patient is resting comfortably. Walking this morning. Ate better yesterday. Still very weak and short of breath. REVIEW OF SYSTEMS: CONSTITUTIONAL: No night sweats. Fatigue. No fever or chills. Weakness. HEENT: Eyes: No visual changes. No eye pain. No eye discharge. ENT: No runny nose. No epistaxis. No sinus pain. No odynophagia. No congestion. RESPIRATORY: No cough, no congestion. No hemoptysis. Shortness of breath. CARDIOVASCULAR: No angina symptoms. No CHF symptoms. No atypical chest pain for CAD. No palpitations. No orthopnea.. GASTROINTESTINAL: No abdominal pain. No nausea or vomiting. No diarrhea or constipation. No hematemesis. No hematochezia. GENITOURINARY: No urgency. No frequency. No dysuria. No hematuria. No obstructive symptoms. No discharge. No pain. No significant abnormal bleeding. MUSCULOSKELETAL: No musculoskeletal pain; no joint swelling. NEUROLOGICAL: Awake, alert, oriented to time, place and person. No headache. No neck pain. No syncope. No seizures. No dizziness. PSYCHIATRIC: Not anxious. No depression. No suicidal thoughts. No homicidal thoughts. SKIN: No rash. No lesions. No wounds. ENDOCRINE: No unexplained weight loss. No weight gain. HEMATOLOGIC/LYMPHATIC: No anemia. No purpura. No petechiae. No prolonged or excessive bleeding. No palpable lymph nodes. PHYSICAL EXAMINATION: GENERAL: The patient is awake, alert and oriented, lying in bed in no distress. VITAL SIGNS: Temperature 97.6 F, Pulse 85, Respiratory Rate 18, BP 113/61, Pulse Ox 100% HEENT: Head normocephalic, atraumatic. Eyes: Extraocular muscles are intact. Pupils are equal, round and reactive to light and accommodation. Ears: No lesions. Nose appeared normal. Throat: No exudate or erythema. NECK: Supple. No JVD, no carotid bruit. No lymphadenopathy or thyromegaly. LUNGS: Diminished breath sounds. Bilateral wheeze. Clear to auscultation. Percussion note normal. Chest symmetrical. HEART: S1, S2, no S3. Irregular heart rate. No murmurs. No cyanosis or clubbing. No ascites. Pulses: Dorsalis pedis and posterior tibial pulses +1 to +2 both sides. ABDOMEN: Soft. Non-tender. Bowel sounds active. No CVA tenderness. No mass felt. EXTREMITIES: No edema. Full range of motion of all extremities, equal. NEUROLOGIC: No focal deficit. Cranial nerves II through XII are grossly intact. No headache. No double vision. SKIN: Not dry. Intact. Turgor-normal. LYMPHATIC: No palpable lymph nodes/no lymphedema. MUSCULOSKELETAL: Normal joints with no swelling. Muscle tone is normal. LAB REVIEW: 07/24/21 04:45 07/24/21 04:45 07/24/21 04:45: Sodium 135.3, Potassium 4.49, Chloride 103.8, Carbon Dioxide 26.3, Anion Gap 9.69, BUN 25.0 H, Creatinine 0.56 L, Estimated GFR (MDRD) 103.00, BUN/Creatinine Ratio 44.64, Glucose 198.9 H, Calcium 8.73, Total Bilirubin 0.20, AST 25.0, ALT 23.5, Alkaline Phosphatase 66.0, Total Protein 5.85 L, Albumin 3.25 L, Globulin 2.60, Albumin/Globulin Ratio 1.25 07/24/21 04:45: PT 27.2 H D, INR 2.55 07/24/21 04:45: WBC 12.80 H, RBC 3.65 L, Hgb 11.1 L, Hct 33.5 L, MCV 91.8, MCH 30.4, MCHC 33.1, RDW Coeff of [place] 12.7, Plt Count 287, Immature Gran % (Auto) 1.1, Neut % (Auto) 79.7 H, Lymph % (Auto) 11.3, [place] % (Auto) 7.7, Eos % (Auto) 0.0, Baso % (Auto) 0.2, Neut # (Auto) 10.2 H, Lymph # (Auto) 1.4, [place] # (Auto) 1.0, Eos # (Auto) 0.0, Baso # (Auto) 0.0, Immature Gran # (Auto) 0.1 ASSESSMENT: Please see below. 1. UTI positive ESBL 2. Dehydration, improved 3. Acute COPD exacerbation 4. Atrial fibrillation 5. Diabetes mellitus type II PLAN: 1. Restart Coumadin 2. Continue IV antibiotics 3. Hold Prednisone Plan and coordination of the patient's care discussed in the presence of Sonography Technologist and nurse. SCRIBED BY: Geoffrey GUADALUPE scribed while in presence of service performed by Dr. Bello/Lashawn Austin APRN on 07/24/21 ([id number])
--- NOTE | 2021-07-24 10:54 | RS.PTINEVL ---
Subjective - Patient information Date of Evaluation: 07/23/21 Date of Arrival on Unit: 07/22/21 Admitted From:: Home Diagnosis: UTI, COPD, dehydration Usual Living Arrangement: With Spouse Living Arrangement Comments: lives with elderly spouse and raises teenage granddaugther Home Environment: House, Stairs (few) Medical History: Hypertension, COPD, Diabetes, Arthritis, Cancer (lung) Medical History Comments:: anxiety, osteoporosis, afib, peripheral artery disease, CAD, frequent falls Surgical History: Hysterectomy, CABG Medications: see chart Subjective Information/ Patient Comments:: pt states that she has to get stronger to be able to raise her granddaughter. pt states that she does not want OT at this time. Is agreeable to PT. - Level of function Prior to this admission, the patient could do the following:: Partially Dependent Ambulation Abilities prior to this admission: pt had to have dtr assist with bathing and her self care due to weakness. Current Level of Function: Partially Dependent Current Equipment Used at Home: Nebulizer, O2, glucometer, rolling walker Interventions - Objective Patient Orientation: Person, Place, Situation Current Interventions: IV's, Oxygen, Telemetry Observation: pt is on 2 liters O2 Range of Motion - ROM Right Upper Extremity AROM: WFL's Left Upper Extremity AROM: WFL's Right Lower Extremity AROM: WFL's Left Lower Extremity AROM: WFL's Muscle Strength - Muscle Strength Right Upper Extremity Strength: Mild Weakness (grossly 4-/5) Left Upper Extremity Strength: Mild Weakness (grossly 4-/5) Right Lower Extremity Strength: Mild Weakness (hip flex 3+/5, knee flex/ext 4- /5, ankle DF/PF 4-/5) Left Lower Extremity Strength: Mild Weakness (hip flex 3+/5, knee flex/ext 4-/5, ankle DF/PF 4-/5) Sensation - Sensation Right Upper Extremity Sensation: Intact/Normal Left Upper Extremity Sensation: Intact/Normal Right Lower Extremity Sensation: Intact/Normal Left Lower Extremity Sensation: Intact/Normal Palpation Palpation Findings: Tenderness Comments:: B lower legs ant tib Balance - Sitting Balance and Reactions Static Sitting Balance: Good Dynamic Sitting Balance: Fair - Standing Balance and Reactions Static Standing Balance: Poor Dynamic Standing Balance: Poor Standing Equilibrium Reactions: Delayed Left, Delayed Right Standing Protective Reactions: Delayed Left, Delayed Right Functional Mobility - Bed Mobility Rolling R/L: CGA Supine to Sit: CGA Sit to Supine: CGA - Transfers Sit to Stand: CGA Stand to Sit: CGA - Safety Awareness Safety Awareness: Fair JENNI INDEX SCORE: n/a Ambulation - Ambulation Assistive Device Used: Rollator Orthotic/Prosthetic Device: No Distance: 70ft with one seated rest period Assistance needed with Ambulation: CGA, Min Assist, 1 person assist, 2 person assist Quality of Ambulation: CG to min x 1 +1 for IV/O2 Gait Deviations: Forward posture, Short stride, Deviates from path Factors Affecting Ambulation: Decreased Balance, Breathing/O2 Saturation, Weakness, Decreased Safety, Limited Endurance Treatment time - Time with patient Length of Evaluation: 21 Total treatment time: 29 Patient Education - Education Patient Education: Activity Modification, Education of Plan of Care Teaching Recipient: Patient Teaching Methods: Discussion Assessment - Assessment Problem List:: Decreased level of function, Requires training/education, Decreased safety/Risk of falls, Weakness, Cognitive status limits abilities Rehab Potential: Fair Further Therapy Indicated?: Yes Candidate for Swing Bed for Therapy Services?: Feel pt may not be a candidate for swing bed for therapy due to pt low endurance and resp status may not tolerate requirements(150mins per week) and has refused OT at this time. Evaluation Complexity: HISTORY: Medium, EXAM OF BODY SYSTEMS: Medium, CLINICAL PRESENTATION: Medium, CLINICAL DECISION MAKING: Medium Patient's Goal(s): I have to get stronger Short Term Goals GOAL #1: pt transfer sup to/from sit independently Goal to be met by: 07/26/21 GOAL #2: Transfer sit to/from stand SBA Goal to be met by: 07/26/21 GOAL #3: pt amb 75ft with rwx with O2 CGA no seated rest Goal to be met by: 07/26/21 GOAL #4: Improve BLE strength 4/5 Goal to be met by: 07/26/21 GOAL #5: pt independent with all bed mobility Goal to be met by: 07/26/21 Application Integration Engineer Goals GOAL #1: pt tranfer sit to/from stand independently Goal to be met by: 07/29/21 GOAL #2: pt amb functional household distances with RWX, O2 and SBA Goal to be met by: 07/29/21 GOAL #3: Improve dyn stand balance fair Goal to be met by: 07/29/21 Plan Plan of Care: Therapeutic EX, Therapeutic Activity Other:: gait training Frequency of Treatment: 1-2 X day, as tolerated Duration of Treatment: 5-7 days Anticipated Discharge Destination: undetermined Treatment Diagnosis (ICD 10 Codes): difficulty walking R 26.2. impaired balance R 26.81. weakness M 62.81 Has the Physician been added for Co-signature?: Yes
[2021-07-24] MEDS ORDERED: MILK OF MAGNESIA PO STA (17:16)
[2021-07-24] MEDS: COUMADIN PO SCH (17:26)
[2021-07-24] MEDS: XANAX PO PRN (20:08)
[2021-07-25] MEDS: ATROVENT HFA INHALER (PER PUFF-WITH SPACER) IH SCH ×4 (04:40→19:48)
[2021-07-25] MEDS: VENTOLIN HFA (PER PUFF-WITH SPACER) IH SCH ×4 (04:40→19:48)
[2021-07-25 05:29] LABS: BASOPHILS % (AUTO) 0.2 % (0.0-3.0); EOSINOPHILS % (AUTO) 0.1 % (0.0-7.0); HEMATOCRIT 35.5 % (37.0-47.0); HEMOGLOBIN 11.5 g/dl (12.0-16.0); IMMATURE GRANULOCYTE # (AUTO) 0.1 (0.0-1.0); IMMATURE GRANULOCYTE % (AUTO) 1.1 % (0.0-5.0); LYMPHOCYTES # (AUTO) 1.7 K/uL (0.60-3.4); LYMPHOCYTES % (AUTO) 14.1 (10.0-50.0); MEAN CORPUSCULAR HEMOGLOBIN 29.9 pg (27.0-31.0); MEAN CORPUSCULAR HGB CONC 32.4 (31.8-35.4); MEAN CORPUSCULAR VOLUME 92.2 fl (81.0-99.0); MONOCYTES # (AUTO) 1.1 K/uL (0.4-2.0); MONOCYTES % (AUTO) 8.8 (0-10); NEUTROPHILS # (AUTO) 9.2 K/ul (2.0-6.9); NEUTROPHILS % (AUTO) 75.7 % (42.2-75.2); PLATELET COUNT 297 10^3/uL (140-440); RDW COEFFICIENT OF VARIATION 12.7 % (11.6-14.8); RED BLOOD COUNT 3.85 10^6/ul (4.20-5.40); WHITE BLOOD COUNT 12.09 K/ul (4.6-10.2)
[2021-07-25 05:30] LABS: PROTHROMBIN TIME 20.9 SEC (9.3-11.0)
[2021-07-25 05:35] LABS: ALANINE AMINOTRANSFERASE 44.7 U/L (0-35); ALBUMIN 3.42 g/dL (3.5-5.0); ALKALINE PHOSPHATASE 71.4 U/L (53-141); ASPARTATE AMINO TRANSFERASE 54.5 U/L (14-36); BILIRUBIN,TOTAL 0.18 mg/dL (0.2-1.3); BLOOD UREA NITROGEN 30.1 mg/dL (7-17); CALCIUM 8.79 mg/dL (8.4-10.2); CARBON DIOXIDE 27.3 mmol/L (22-30.0); CHLORIDE 103.1 mmol/L (98-107); CREATININE 0.52 mg/dL (0.60-1.30); GLUCOSE 179.9 mg/dL (74-106); POTASSIUM 4.57 mmol/L (3.5-5.1); SODIUM 136.3 mmol/L (134.5-145); TOTAL PROTEIN 5.98 g/dL (6.3-8.2)
[2021-07-25] MEDS: HUMALOG SUBCUT SCH ×4 (05:52→20:43)
[2021-07-25] MEDS: LANOXIN PO SCH (08:34)
[2021-07-25] MEDS: CALAN SR PO SCH ×2 (08:34→20:42)
[2021-07-25] MEDS: NYSTATIN ORAL SUSP PO SCH ×3 (08:35→20:42)
[2021-07-25] MEDS: DIFLUCAN PO SCH (08:35)
[2021-07-25] MEDS: DECADRON IM SCH (08:35)
[2021-07-25] MEDS: LEXAPRO PO SCH (08:35)
[2021-07-25] MEDS: MEGACE PO SCH (08:35)
[2021-07-25] MEDS: LANTUS SUBCUT SCH (08:36)
[2021-07-25] MEDS: NORCO 5-325 PO PRN ×2 (08:45→14:52)
--- NOTE | 2021-07-25 09:19 | PCM.PROG ---
Attending Provider: ATTENDING PROVIDER: Dr. SAMUEL BELLO DATE OF SERVICE: 07/25/21 SUBJECTIVE: This 86 year old /WHITE F was hospitalized 07/22/21 with UTI, dehydration and COPD. The patient's condition has improved. REVIEW OF SYSTEMS: CONSTITUTIONAL: No night sweats. No fatigue, malaise, lethargy. No fever or chills. HEENT: Eyes: No visual changes. No eye pain. No eye discharge. ENT: No runny nose. No epistaxis. No sinus pain. No odynophagia. No congestion. RESPIRATORY: No cough, no congestion. No hemoptysis. Shortness of breath still. CARDIOVASCULAR: No angina symptoms. No CHF symptoms. No atypical chest pain for CAD. No palpitations. No orthopnea.. GASTROINTESTINAL: No abdominal pain. No nausea or vomiting. No diarrhea or constipation. No hematemesis. No hematochezia. Appetite improving. GENITOURINARY: No urgency. No frequency. No dysuria. No hematuria. No obstructive symptoms. No discharge. No pain. No significant abnormal bleeding. MUSCULOSKELETAL: No musculoskeletal pain; no joint swelling. NEUROLOGICAL: Awake, alert, oriented to time, place and person. No headache. No neck pain. No syncope. No seizures. No dizziness. PSYCHIATRIC: Not anxious. No depression. No suicidal thoughts. No homicidal thoughts. SKIN: No rash. No lesions. No wounds. ENDOCRINE: No unexplained weight loss. No weight gain. HEMATOLOGIC/LYMPHATIC: No anemia. No purpura. No petechiae. No prolonged or excessive bleeding. No palpable lymph nodes. PHYSICAL EXAMINATION: GENERAL: The patient is awake, alert and oriented, lying in bed in no distress. VITAL SIGNS: Temperature 98.9 F, Pulse 94, Respiratory Rate 16, BP 128/66, Pulse Ox 100% HEENT: Head normocephalic, atraumatic. Eyes: Extraocular muscles are intact. Pupils are equal, round and reactive to light and accommodation. Ears: No lesions. Nose appeared normal. Throat: No exudate or erythema. NECK: Supple. No JVD, no carotid bruit. No lymphadenopathy or thyromegaly. LUNGS: Decreased breath sounds. Clear to auscultation. Percussion note normal. Chest symmetrical. HEART: S1, S2, no S3. No murmurs. No cyanosis or clubbing. No ascites. Pulses: Dorsalis pedis and posterior tibial pulses +1 to +2 both sides. ABDOMEN: Soft. Non-tender. Bowel sounds active. No CVA tenderness. No mass felt. EXTREMITIES: No edema. Full range of motion of all extremities, equal. NEUROLOGIC: No focal deficit. Cranial nerves II through XII are grossly intact. No headache, no double vision or headache. SKIN: Warm and dry. Intact. Turgor-normal. LYMPHATIC: No palpable lymph nodes/no lymphedema. MUSCULOSKELETAL: Normal joints with no swelling. Muscle tone is normal. LAB REVIEW: 07/25/21 04:41 07/25/21 04:41 07/25/21 04:41: PT 20.9 H D, INR 1.96 07/25/21 04:41: Sodium 136.3, Potassium 4.57, Chloride 103.1, Carbon Dioxide 27.3, Anion Gap 10.47, BUN 30.1 H, Creatinine 0.52 L, Estimated GFR (MDRD) 112.00, BUN/Creatinine Ratio 57.88, Glucose 179.9 H, Calcium 8.79, Total Bilirubin 0.18 L, AST 54.5 H D, ALT 44.7 H, Alkaline Phosphatase 71.4, Total Protein 5.98 L, Albumin 3.42 L, Globulin 2.56, Albumin/Globulin Ratio 1.33 07/25/21 04:41: WBC 12.09 H, RBC 3.85 L, Hgb 11.5 L, Hct 35.5 L, MCV 92.2, MCH 29.9, MCHC 32.4, RDW Coeff of [place] 12.7, Plt Count 297, Immature Gran % (Auto) 1.1, Neut % (Auto) 75.7 H, Lymph % (Auto) 14.1, [place] % (Auto) 8.8, Eos % (Auto) 0.1, Baso % (Auto) 0.2, Neut # (Auto) 9.2 H, Lymph # (Auto) 1.7, [place] # (Auto) 1.1, Eos # (Auto) 0.0, Baso # (Auto) 0.0, Immature Gran # (Auto) 0.1 ASSESSMENT: Please see below. 1. UTI, resolving 2. Dehydration, resolving with good skin turgor 3. Chronic bronchitis persistent, patient is a smoker 4. Coronary bypass surgery, stable. PLAN: 1. Continue antibiotics, steroids and inhalers. Plan and coordination of the patient's care discussed in the presence of [place] and nurse. SCRIBED BY: Jaylene GUADALUPEist scribed while in presence of service performed by Dr. SAMUEL BELLO on 07/25/21 ([id number])
[2021-07-25] MEDS: INVANZ 1 GM in SODIUM CHLORIDE 50 ML IV SCH (10:41)
[2021-07-25] MEDS: COUMADIN PO SCH (17:21)
[2021-07-25] MEDS: XANAX PO PRN (20:42)
[2021-07-26] MEDS: VENTOLIN HFA (PER PUFF-WITH SPACER) IH SCH ×4 (04:33→20:20)
[2021-07-26] MEDS: ATROVENT HFA INHALER (PER PUFF-WITH SPACER) IH SCH ×4 (04:33→20:20)
[2021-07-26 05:02] LABS: BASOPHILS % (AUTO) 0.2 % (0.0-3.0); HEMATOCRIT 33.6 % (37.0-47.0); IMMATURE GRANULOCYTE # (AUTO) 0.1 (0.0-1.0); IMMATURE GRANULOCYTE % (AUTO) 1.3 % (0.0-5.0); LYMPHOCYTES # (AUTO) 1.4 K/uL (0.60-3.4); LYMPHOCYTES % (AUTO) 13.2 (10.0-50.0); MEAN CORPUSCULAR HEMOGLOBIN 30.1 pg (27.0-31.0); MEAN CORPUSCULAR HGB CONC 32.7 (31.8-35.4); MEAN CORPUSCULAR VOLUME 91.8 fl (81.0-99.0); MONOCYTES # (AUTO) 0.9 K/uL (0.4-2.0); MONOCYTES % (AUTO) 8.3 (0-10); NEUTROPHILS # (AUTO) 8.1 K/ul (2.0-6.9); PLATELET COUNT 248 10^3/uL (140-440); RDW COEFFICIENT OF VARIATION 12.6 % (11.6-14.8); RED BLOOD COUNT 3.66 10^6/ul (4.20-5.40); WHITE BLOOD COUNT 10.57 K/ul (4.6-10.2)
[2021-07-26 05:14] LABS: ALANINE AMINOTRANSFERASE 52.8 U/L (0-35); ALBUMIN 3.28 g/dL (3.5-5.0); ALKALINE PHOSPHATASE 76.2 U/L (53-141); ASPARTATE AMINO TRANSFERASE 44.7 U/L (14-36); BILIRUBIN,TOTAL 0.18 mg/dL (0.2-1.3); BLOOD UREA NITROGEN 29.6 mg/dL (7-17); CALCIUM 8.72 mg/dL (8.4-10.2); CREATININE 0.6 mg/dL (0.60-1.30); GLUCOSE 217.2 mg/dL (74-106); POTASSIUM 4.56 mmol/L (3.5-5.1); SODIUM 133.5 mmol/L (134.5-145); TOTAL PROTEIN 5.71 g/dL (6.3-8.2)
[2021-07-26 05:19] LABS: PROTHROMBIN TIME 27.7 SEC (9.3-11.0)
[2021-07-26] MEDS: HUMALOG SUBCUT SCH ×4 (05:46→20:55)
[2021-07-26] MEDS: NYSTATIN ORAL SUSP PO SCH ×3 (08:49→20:56)
[2021-07-26] MEDS: LANTUS SUBCUT SCH (08:50)
[2021-07-26] MEDS: NORCO 5-325 PO PRN ×2 (08:51→13:42)
[2021-07-26] MEDS: LANOXIN PO SCH (08:51)
[2021-07-26] MEDS: DIFLUCAN PO SCH (08:51)
[2021-07-26] MEDS: PREDNISONE PO SCH (08:52)
[2021-07-26] MEDS: MEGACE PO SCH (08:52)
[2021-07-26] MEDS: LEXAPRO PO SCH (08:52)
[2021-07-26] MEDS: CALAN SR PO SCH ×2 (08:52→20:56)
[2021-07-26] MEDS: INVANZ 1 GM in SODIUM CHLORIDE 50 ML IV SCH (08:55)
[2021-07-26] MEDS: COUMADIN PO SCH (17:24)
[2021-07-26] MEDS: XANAX PO PRN (20:56)
[2021-07-26] MEDS: COLACE PO PRN (21:04)
[2021-07-27] MEDS: ATROVENT HFA INHALER (PER PUFF-WITH SPACER) IH SCH ×4 (04:36→20:14)
[2021-07-27] MEDS: VENTOLIN HFA (PER PUFF-WITH SPACER) IH SCH ×4 (04:36→20:14)
[2021-07-27 05:22] LABS: BASOPHILS % (AUTO) 0.2 % (0.0-3.0); EOSINOPHILS # (AUTO) 0.1 K/ul (0.0-0.7); EOSINOPHILS % (AUTO) 0.9 % (0.0-7.0); HEMATOCRIT 34.1 % (37.0-47.0); IMMATURE GRANULOCYTE # (AUTO) 0.4 (0.0-1.0); IMMATURE GRANULOCYTE % (AUTO) 3.6 % (0.0-5.0); LYMPHOCYTES # (AUTO) 2.1 K/uL (0.60-3.4); LYMPHOCYTES % (AUTO) 21.8 (10.0-50.0); MEAN CORPUSCULAR HEMOGLOBIN 29.8 pg (27.0-31.0); MEAN CORPUSCULAR HGB CONC 32.3 (31.8-35.4); MEAN CORPUSCULAR VOLUME 92.4 fl (81.0-99.0); MONOCYTES # (AUTO) 0.9 K/uL (0.4-2.0); MONOCYTES % (AUTO) 9.5 (0-10); NEUTROPHILS # (AUTO) 6.2 K/ul (2.0-6.9); PLATELET COUNT 236 10^3/uL (140-440); RDW COEFFICIENT OF VARIATION 12.8 % (11.6-14.8); RED BLOOD COUNT 3.69 10^6/ul (4.20-5.40); WHITE BLOOD COUNT 9.62 K/ul (4.6-10.2)
[2021-07-27 05:35] LABS: ALANINE AMINOTRANSFERASE 61.4 U/L (0-35); ALBUMIN 3.19 g/dL (3.5-5.0); ALKALINE PHOSPHATASE 69.7 U/L (53-141); ASPARTATE AMINO TRANSFERASE 48.7 U/L (14-36); BILIRUBIN,TOTAL 0.23 mg/dL (0.2-1.3); BLOOD UREA NITROGEN 25.4 mg/dL (7-17); CALCIUM 8.62 mg/dL (8.4-10.2); CARBON DIOXIDE 29.6 mmol/L (22-30.0); CHLORIDE 102.1 mmol/L (98-107); CREATININE 0.63 mg/dL (0.60-1.30); GLUCOSE 132.1 mg/dL (74-106); POTASSIUM 4.64 mmol/L (3.5-5.1); SODIUM 136.1 mmol/L (134.5-145); TOTAL PROTEIN 5.63 g/dL (6.3-8.2)
[2021-07-27] MEDS: HUMALOG SUBCUT SCH ×4 (05:47→20:10)
[2021-07-27 05:50] LABS: PROTHROMBIN TIME 36.3 SEC (9.3-11.0)
[2021-07-27] MEDS: INVANZ 1 GM in SODIUM CHLORIDE 50 ML IV SCH (08:39)
[2021-07-27] MEDS: NYSTATIN ORAL SUSP PO SCH ×3 (08:39→20:10)
[2021-07-27] MEDS: LANTUS SUBCUT SCH (08:39)
[2021-07-27] MEDS: LANOXIN PO SCH (08:40)
[2021-07-27] MEDS: PREDNISONE PO SCH (08:40)
[2021-07-27] MEDS: DIFLUCAN PO SCH (08:40)
[2021-07-27] MEDS: NORCO 5-325 PO PRN ×2 (08:40→12:28)
[2021-07-27] MEDS: CALAN SR PO SCH ×2 (08:40→20:10)
[2021-07-27] MEDS: MEGACE PO SCH (08:40)
[2021-07-27] MEDS: LEXAPRO PO SCH (08:41)
[2021-07-27] MEDS: XANAX PO PRN (20:09)
[2021-07-28] MEDS: VENTOLIN HFA (PER PUFF-WITH SPACER) IH SCH ×4 (04:30→19:35)
[2021-07-28] MEDS: ATROVENT HFA INHALER (PER PUFF-WITH SPACER) IH SCH ×4 (04:30→19:35)
[2021-07-28 06:17] LABS: BASOPHILS % (AUTO) 0.3 % (0.0-3.0); EOSINOPHILS # (AUTO) 0.2 K/ul (0.0-0.7); EOSINOPHILS % (AUTO) 2.2 % (0.0-7.0); HEMOGLOBIN 10.7 g/dl (12.0-16.0); IMMATURE GRANULOCYTE # (AUTO) 0.4 (0.0-1.0); IMMATURE GRANULOCYTE % (AUTO) 3.6 % (0.0-5.0); LYMPHOCYTES # (AUTO) 2.3 K/uL (0.60-3.4); MEAN CORPUSCULAR HGB CONC 32.4 (31.8-35.4); MEAN CORPUSCULAR VOLUME 92.4 fl (81.0-99.0); MONOCYTES # (AUTO) 0.9 K/uL (0.4-2.0); NEUTROPHILS # (AUTO) 6.5 K/ul (2.0-6.9); NEUTROPHILS % (AUTO) 62.9 % (42.2-75.2); PLATELET COUNT 213 10^3/uL (140-440); RDW COEFFICIENT OF VARIATION 12.9 % (11.6-14.8); RED BLOOD COUNT 3.57 10^6/ul (4.20-5.40); WHITE BLOOD COUNT 10.28 K/ul (4.6-10.2)
[2021-07-28 06:30] LABS: ALANINE AMINOTRANSFERASE 51.2 U/L (0-35); ALBUMIN 3.01 g/dL (3.5-5.0); ALKALINE PHOSPHATASE 73.1 U/L (53-141); ASPARTATE AMINO TRANSFERASE 40.1 U/L (14-36); BILIRUBIN,TOTAL 0.18 mg/dL (0.2-1.3); BLOOD UREA NITROGEN 19.9 mg/dL (7-17); CALCIUM 8.38 mg/dL (8.4-10.2); CARBON DIOXIDE 28.6 mmol/L (22-30.0); CHLORIDE 103.3 mmol/L (98-107); CREATININE 0.55 mg/dL (0.60-1.30); GLUCOSE 102.6 mg/dL (74-106); POTASSIUM 4.33 mmol/L (3.5-5.1); SODIUM 135.3 mmol/L (134.5-145); TOTAL PROTEIN 5.43 g/dL (6.3-8.2)
[2021-07-28 06:34] LABS: PROTHROMBIN TIME 37.5 SEC (9.3-11.0)
[2021-07-28] MEDS: HUMALOG SUBCUT SCH ×4 (06:36→20:23)
--- NOTE | 2021-07-28 08:52 | PCM.PROG ---
Attending Provider: ATTENDING PROVIDER: Dr. SAMUEL BELLO This patient is seen with Lashawn Austin, Nurse Practitioner. DATE OF SERVICE: 07/28/21 SUBJECTIVE: This 86 year old /WHITE F was hospitalized 07/22/21. The patient is resting comfortably. On day 7 of antibiotics. Still very weak. Urination and output is better. Labs are stable. REVIEW OF SYSTEMS: CONSTITUTIONAL: No night sweats. No fatigue, malaise, lethargy. No fever or chills. Weakness. HEENT: Eyes: No visual changes. No eye pain. No eye discharge. ENT: No runny nose. No epistaxis. No sinus pain. No odynophagia. No congestion. RESPIRATORY: Cough, no congestion. No hemoptysis. No shortness of breath. CARDIOVASCULAR: No angina symptoms. No CHF symptoms. No atypical chest pain for CAD. No palpitations. No orthopnea.. GASTROINTESTINAL: No abdominal pain. No nausea or vomiting. No diarrhea or constipation. No hematemesis. No hematochezia. GENITOURINARY: No urgency. No frequency. No dysuria. No hematuria. No obstructive symptoms. No discharge. No pain. No significant abnormal bleeding. MUSCULOSKELETAL: No musculoskeletal pain; no joint swelling. NEUROLOGICAL: Awake, alert, oriented to time, place and person. No headache. No neck pain. No syncope. No seizures. No dizziness. PSYCHIATRIC: Not anxious. No depression. No suicidal thoughts. No homicidal thoughts. SKIN: No rash. No lesions. No wounds. ENDOCRINE: No unexplained weight loss. No weight gain. HEMATOLOGIC/LYMPHATIC: No anemia. No purpura. No petechiae. No prolonged or excessive bleeding. No palpable lymph nodes. PHYSICAL EXAMINATION: GENERAL: The patient is awake, alert and oriented, sitting in bed in no distress. VITAL SIGNS: Temperature 97.4 F, Pulse 72, Respiratory Rate 18, BP 145/69, Pulse Ox 100% HEENT: Head normocephalic, atraumatic. Eyes: Extraocular muscles are intact. Pupils are equal, round and reactive to light and accommodation. Ears: No lesions. Nose appeared normal. Throat: No exudate or erythema. NECK: Supple. No JVD, no carotid bruit. No lymphadenopathy or thyromegaly. LUNGS: Diminished breath sounds. Clear to auscultation. Percussion note normal. Chest symmetrical. HEART: S1, S2, no S3. No murmurs. No cyanosis or clubbing. No ascites. Pulses: Dorsalis pedis and posterior tibial pulses +1 to +2 both sides. ABDOMEN: Soft. Non-tender. Bowel sounds active. No CVA tenderness. No mass felt. EXTREMITIES: No edema. Full range of motion of all extremities, equal. NEUROLOGIC: No focal deficit. Cranial nerves II through XII are grossly intact. No headache. No double vision. SKIN: Not dry. Intact. Turgor-normal. LYMPHATIC: No palpable lymph nodes/no lymphedema. MUSCULOSKELETAL: Normal joints with no swelling. Muscle tone is normal. LAB REVIEW: 07/28/21 05:50 07/28/21 05:50 07/28/21 05:50: PT 37.5 H, INR 3.50 07/28/21 05:50: Sodium 135.3, Potassium 4.33, Chloride 103.3, Carbon Dioxide 28.6, Anion Gap 7.73, BUN 19.9 H, Creatinine 0.55 L, Estimated GFR (MDRD) 105.00, BUN/Creatinine Ratio 36.18, Glucose 102.6, Calcium 8.38 L, Total Bilirubin 0.18 L, AST 40.1 H, ALT 51.2 H, Alkaline Phosphatase 73.1, Total Protein 5.43 L, Albumin 3.01 L, Globulin 2.42, Albumin/Globulin Ratio 1.24 07/28/21 05:50: WBC 10.28 H, RBC 3.57 L, Hgb 10.7 L, Hct 33.0 L, MCV 92.4, MCH 30.0, MCHC 32.4, RDW Coeff of [place] 12.9, Plt Count 213, Immature Gran % (Auto) 3.6, Neut % (Auto) 62.9, Lymph % (Auto) 22.0, [place] % (Auto) 9.0, Eos % (Auto) 2.2, Baso % (Auto) 0.3, Neut # (Auto) 6.5, Lymph # (Auto) 2.3, [place] # (Auto) 0.9, Eos # (Auto) 0.2, Baso # (Auto) 0.0, Immature Gran # (Auto) 0.4 ASSESSMENT: Please see below. 1. UTI positive ESBL 2. Acute COPD exacerbation 3. Dehydration, resolved. PLAN: 1. Continue IV antibiotics 2. Encourage to get up and walk 3. Hold Coumadin Plan and coordination of the patient's care discussed in the presence of Dipper Operator and nurse. SCRIBED BY: Geoffrey GUADALUPE scribed while in presence of service performed by Dr. Bello/Lashawn Austin APRN on 07/28/21 ([id number])
[2021-07-28] MEDS: LANOXIN PO SCH (09:29)
[2021-07-28] MEDS: INVANZ 1 GM in SODIUM CHLORIDE 50 ML IV SCH (09:29)
[2021-07-28] MEDS: NORCO 5-325 PO PRN ×2 (09:29→11:58)
[2021-07-28] MEDS: NYSTATIN ORAL SUSP PO SCH ×3 (09:29→20:22)
[2021-07-28] MEDS: DIFLUCAN PO SCH (09:30)
[2021-07-28] MEDS: MEGACE PO SCH (09:30)
[2021-07-28] MEDS: PREDNISONE PO SCH (09:30)
[2021-07-28] MEDS: LEXAPRO PO SCH (09:30)
[2021-07-28] MEDS: CALAN SR PO SCH ×2 (09:30→20:22)
[2021-07-28] MEDS: LANTUS SUBCUT SCH (10:46)
[2021-07-28] MEDS: XANAX PO PRN (20:22)
[2021-07-29] MEDS: ATROVENT HFA INHALER (PER PUFF-WITH SPACER) IH SCH ×4 (04:45→20:20)
[2021-07-29] MEDS: VENTOLIN HFA (PER PUFF-WITH SPACER) IH SCH ×4 (04:45→20:20)
[2021-07-29 05:26] LABS: BASOPHILS # (AUTO) 0.1 K/uL (0-0.2); BASOPHILS % (AUTO) 0.5 % (0.0-3.0); EOSINOPHILS # (AUTO) 0.2 K/ul (0.0-0.7); HEMATOCRIT 33.5 % (37.0-47.0); HEMOGLOBIN 10.7 g/dl (12.0-16.0); IMMATURE GRANULOCYTE # (AUTO) 0.4 (0.0-1.0); IMMATURE GRANULOCYTE % (AUTO) 3.2 % (0.0-5.0); LYMPHOCYTES # (AUTO) 2.3 K/uL (0.60-3.4); LYMPHOCYTES % (AUTO) 20.7 (10.0-50.0); MEAN CORPUSCULAR HEMOGLOBIN 29.7 pg (27.0-31.0); MEAN CORPUSCULAR HGB CONC 31.9 (31.8-35.4); MEAN CORPUSCULAR VOLUME 93.1 fl (81.0-99.0); MONOCYTES # (AUTO) 0.9 K/uL (0.4-2.0); NEUTROPHILS # (AUTO) 7.2 K/ul (2.0-6.9); NEUTROPHILS % (AUTO) 65.6 % (42.2-75.2); PLATELET COUNT 229 10^3/uL (140-440); RDW COEFFICIENT OF VARIATION 13.1 % (11.6-14.8); WHITE BLOOD COUNT 10.92 K/ul (4.6-10.2)
[2021-07-29 05:31] LABS: PROTHROMBIN TIME 20.9 SEC (9.3-11.0)
[2021-07-29 05:34] LABS: ALBUMIN 3.09 g/dL (3.5-5.0); ALKALINE PHOSPHATASE 74.1 U/L (53-141); ASPARTATE AMINO TRANSFERASE 37.1 U/L (14-36); BILIRUBIN,TOTAL 0.31 mg/dL (0.2-1.3); CALCIUM 8.35 mg/dL (8.4-10.2); CARBON DIOXIDE 28.5 mmol/L (22-30.0); CHLORIDE 103.2 mmol/L (98-107); CREATININE 0.55 mg/dL (0.60-1.30); GLUCOSE 127.9 mg/dL (74-106); POTASSIUM 4.38 mmol/L (3.5-5.1); TOTAL PROTEIN 5.35 g/dL (6.3-8.2)
[2021-07-29] MEDS: HUMALOG SUBCUT SCH ×4 (05:54→20:12)
--- NOTE | 2021-07-29 08:41 | PCM.PROG ---
Attending Provider: ATTENDING PROVIDER: Dr. SAMUEL BELLO This patient is seen with Lashawn Austin, Nurse Practitioner. DATE OF SERVICE: 07/29/21 SUBJECTIVE: This 86 year old /WHITE F was hospitalized 07/22/21. The patient is resting comfortably. She has been working well with therapy. On day 8 of antibiotics. Respiratory status is stable. REVIEW OF SYSTEMS: CONSTITUTIONAL: No night sweats. No fatigue, malaise, lethargy. No fever or chills. Weakness. HEENT: Eyes: No visual changes. No eye pain. No eye discharge. ENT: No runny nose. No epistaxis. No sinus pain. No odynophagia. No congestion. RESPIRATORY: No cough, no congestion. No hemoptysis. No shortness of breath. CARDIOVASCULAR: No angina symptoms. No CHF symptoms. No atypical chest pain for CAD. No palpitations. No orthopnea.. GASTROINTESTINAL: No abdominal pain. No nausea or vomiting. No diarrhea or c onstipation. No hematemesis. No hematochezia. GENITOURINARY: No urgency. No frequency. No dysuria. No hematuria. No obstructive symptoms. No discharge. No pain. No significant abnormal bleeding. MUSCULOSKELETAL: No musculoskeletal pain; no joint swelling. NEUROLOGICAL: Awake, alert, oriented to time, place and person. No headache. No neck pain. No syncope. No seizures. No dizziness. PSYCHIATRIC: Not anxious. No depression. No suicidal thoughts. No homicidal thoughts. SKIN: No rash. No lesions. No wounds. ENDOCRINE: No unexplained weight loss. No weight gain. HEMATOLOGIC/LYMPHATIC: No anemia. No purpura. No petechiae. No prolonged or excessive bleeding. No palpable lymph nodes. PHYSICAL EXAMINATION: GENERAL: The patient is awake, alert and oriented, lying in bed in no distress. VITAL SIGNS: Temperature 97.5 F, Pulse 75, Respiratory Rate 16, BP 118/54, Pulse Ox 99% HEENT: Head normocephalic, atraumatic. Eyes: Extraocular muscles are intact. Pupils are equal, round and reactive to light and accommodation. Ears: No lesions. Nose appeared normal. Throat: No exudate or erythema. NECK: Supple. No JVD, no carotid bruit. No lymphadenopathy or thyromegaly. LUNGS: [id number] breath sounds. Clear to auscultation. Percussion note normal. Chest symmetrical. HEART: S1, S2, no S3. No murmurs. No cyanosis or clubbing. No ascites. Pulses: Dorsalis pedis and posterior tibial pulses +1 to +2 both sides. ABDOMEN: Soft. Non-tender. Bowel sounds active. No CVA tenderness. No mass felt. EXTREMITIES: No edema. Full range of motion of all extremities, equal. NEUROLOGIC: No focal deficit. Cranial nerves II through XII are grossly intact. No headache. No double vision. SKIN: Not dry. Intact. Turgor-normal. LYMPHATIC: No palpable lymph nodes/no lymphedema. MUSCULOSKELETAL: Normal joints with no swelling. Muscle tone is normal. LAB REVIEW: 07/29/21 04:35 07/29/21 04:35 07/29/21 04:35: Sodium 136.0, Potassium 4.38, Chloride 103.2, Carbon Dioxide 28.5, Anion Gap 8.68, BUN 22.0 H, Creatinine 0.55 L, Estimated GFR (MDRD) 105.00, BUN/Creatinine Ratio 40.00, Glucose 127.9 H, Calcium 8.35 L, Total Bilirubin 0.31, AST 37.1 H, ALT 48.0 H, Alkaline Phosphatase 74.1, Total Protein 5.35 L, Albumin 3.09 L, Globulin 2.26, Albumin/Globulin Ratio 1.36 07/29/21 04:35: PT 20.9 H D, INR 1.96 07/29/21 04:35: WBC 10.92 H, RBC 3.60 L, Hgb 10.7 L, Hct 33.5 L, MCV 93.1, MCH 29.7, MCHC 31.9, RDW Coeff of Leland 13.1, Plt Count 229, Immature Gran % (Auto) 3.2, Neut % (Auto) 65.6, Lymph % (Auto) 20.7, Collin % (Auto) 8.0, Eos % (Auto) 2.0, Baso % (Auto) 0.5, Neut # (Auto) 7.2 H, Lymph # (Auto) 2.3, Collin # (Auto) 0.9, Eos # (Auto) 0.2, Baso # (Auto) 0.1, Immature Gran # (Auto) 0.4 ASSESSMENT: Please see below. 1. UTI, positive ESBL 2. Dehydration, resolved 3. Acute COPD exacerbation 4. Atrial fibrillation 5. Diabetes Mellitus type II PLAN: 1. Continue IV antibiotics 2. Resume Coumadin Plan and coordination of the patient's care discussed in the presence of [employer] and nurse. SCRIBED BY: Geoffrey GUADALUPE scribed while in presence of service performed by Dr. Bello/Lashawn Austin APRN on 07/29/21 (0800)
[2021-07-29] MEDS: CALAN SR PO SCH ×2 (08:42→20:11)
[2021-07-29] MEDS: MEGACE PO SCH (08:42)
[2021-07-29] MEDS: PREDNISONE PO SCH (08:42)
[2021-07-29] MEDS: DIFLUCAN PO SCH (08:42)
[2021-07-29] MEDS: NYSTATIN ORAL SUSP PO SCH ×3 (08:43→20:12)
[2021-07-29] MEDS: LANOXIN PO SCH (08:43)
[2021-07-29] MEDS: LEXAPRO PO SCH (08:43)
[2021-07-29] MEDS: LANTUS SUBCUT SCH (08:44)
[2021-07-29] MEDS: INVANZ 1 GM in SODIUM CHLORIDE 50 ML IV SCH (08:44)
--- NOTE | 2021-07-29 10:40 | PN ---
DATE OF SERVICE: 07/23/2021 SUBJECTIVE: 86 year old white female hospitalized with multiple medical problems with cachexia, severe chronic lung disease with dehydration, chronic bronchitis and UTI. She says that she feeling better but her only problem is fatigue. REVIEW OF SYSTEMS: CONSTITUTIONAL: No night sweats. Fatigue. No fever or chills. HEENT: Eyes: No visual changes. No eye pain. No eye discharge. ENT: No runny nose. No epistaxis. No sinus pain. No sore throat. No odynophagia. No congestion. RESPIRATORY: No cough, no congestion. No hemoptysis. Shortness of breath on minimal exertion. CARDIOVASCULAR: No angina symptoms. No CHF symptoms. No atypical chest pain for CAD. No palpitations. No PND. No orthopnea. GASTROINTESTINAL: No abdominal pain. No nausea or vomiting. No diarrhea or constipation. No hematemesis. No hematochezia. GENITOURINARY: No urgency. No frequency. No dysuria. No hematuria. No obstructive symptoms. No discharge. No pain. No significant abnormal bleeding. MUSCULOSKELETAL: No musculoskeletal pain; no joint swelling. NEUROLOGICAL: No headache. No neck pain. No syncope. No seizures. No dizziness. PSYCHIATRIC: Not anxious. No depression. No suicidal thoughts. No homicidal thoughts. SKIN: No rash. No lesions. No wounds. ENDOCRINE: No unexplained weight loss. No weight gain. HEMATOLOGIC/LYMPHATIC: No anemia. No purpura. No petechiae. No prolonged or excessive bleeding. No palpable lymph nodes. PHYSICAL EXAMINATION: VITAL SIGNS: Temperature 98.9, pulse 80, respiratory rate 16, blood pressure 124/40 and pulse ox 98%. HEENT: Head normocephalic, atraumatic. Eyes: Extraocular muscles are intact. Pupils are equal, round and reactive to light and accommodation. Ears: No lesions. Nose appeared normal. Throat: No exudate or erythema. NECK: Supple. No JVD, no carotid bruit. No lymphadenopathy or thyromegaly. LUNGS: Decreased breath sounds but Clear to auscultation. Percussion note normal. Chest symmetrical. HEART: S1, S2, no S3. No murmurs. No cyanosis or clubbing. No ascites. Pulses: Dorsalis pedis and posterior tibial pulses +1 to +2 bilaterally. ABDOMEN: Soft. Nontender. Bowel sounds active. No CVA tenderness. No mass felt. EXTREMITIES: No edema. Full range of motion of all extremities, equal. NEUROLOGIC: No focal deficit. Cranial nerves II through XII are grossly intact. No headache. No double vision. SKIN: Not dry. Intact. Turgor - normal. LYMPHATIC: No palpable lymph nodes/no lymphedema. MUSCULOSKELETAL: Normal joints with no swelling. Muscle tone is normal. LABS: Hgb 11, hct 34, WBC 8,600 normal differential, creatinine 0.5, BUN 21, potassium 4.9. Glucose 183. ASSESSMENT: 1. Dehydration seems to be resolving BUN and creatinine ration still high 2. Weakness/fatigue could be combination of infection, bronchitis, severe chronic lung disease with smoking, coronary artery disease with bypass surgery, peripheral arterial disease PLAN: 1. Continue steroids, NEBS and Antibiotics 2. Encourage the patient to eat 3. The patient is going to be seen by Physical therapy 4. INR is high so we are going to hold Coumadin 5. The patient slept well and has been eating good today. TIME SPENT: More than 30 minutes. Plan and coordination of the patient's care discussed in the presence of nurse. STEFANO
--- NOTE | 2021-07-29 10:42 | PN ---
DATE OF SERVICE: 07/24/2021 SUBJECTIVE: 86 year old white female hospitalized with UTI, generalized weakness, cough, congestion and bronchitis. The patient is feeling better. She is gaining the strength but still weak. Appetite has improved. Slept well. No symptoms of CHF or coronary insufficiency. UTI symptoms has resolved. The patient was seen and examined with the Nurse Practitioner. TIME SPENT: More than 30 minutes. Plan and coordination of the patient's care discussed in the presence of nurse. STEFANO
[2021-07-29] MEDS: NORCO 5-325 PO PRN (13:03)
[2021-07-29] MEDS ORDERED: COUMADIN ONE (17:09)
[2021-07-29] MEDS: COUMADIN PO SCH (17:25)
[2021-07-29] MEDS: XANAX PO PRN (20:12)
[2021-07-30] MEDS: VENTOLIN HFA (PER PUFF-WITH SPACER) IH SCH ×4 (04:50→20:18)
[2021-07-30] MEDS: ATROVENT HFA INHALER (PER PUFF-WITH SPACER) IH SCH ×4 (05:00→20:17)
[2021-07-30 05:14] LABS: BASOPHILS % (AUTO) 0.3 % (0.0-3.0); EOSINOPHILS # (AUTO) 0.2 K/ul (0.0-0.7); HEMATOCRIT 32.7 % (37.0-47.0); HEMOGLOBIN 10.5 g/dl (12.0-16.0); IMMATURE GRANULOCYTE # (AUTO) 0.4 (0.0-1.0); IMMATURE GRANULOCYTE % (AUTO) 3.4 % (0.0-5.0); LYMPHOCYTES # (AUTO) 2.3 K/uL (0.60-3.4); LYMPHOCYTES % (AUTO) 19.8 (10.0-50.0); MEAN CORPUSCULAR HGB CONC 32.1 (31.8-35.4); MEAN CORPUSCULAR VOLUME 93.4 fl (81.0-99.0); MONOCYTES % (AUTO) 8.8 (0-10); NEUTROPHILS # (AUTO) 7.6 K/ul (2.0-6.9); NEUTROPHILS % (AUTO) 65.7 % (42.2-75.2); PLATELET COUNT 234 10^3/uL (140-440); RDW COEFFICIENT OF VARIATION 13.1 % (11.6-14.8); WHITE BLOOD COUNT 11.62 K/ul (4.6-10.2)
[2021-07-30 05:25] LABS: PROTHROMBIN TIME 15.9 SEC (9.3-11.0)
[2021-07-30 05:27] LABS: ALANINE AMINOTRANSFERASE 51.8 U/L (0-35); ALBUMIN 3.09 g/dL (3.5-5.0); ALKALINE PHOSPHATASE 76.1 U/L (53-141); ASPARTATE AMINO TRANSFERASE 43.3 U/L (14-36); BILIRUBIN,TOTAL 0.23 mg/dL (0.2-1.3); CALCIUM 8.54 mg/dL (8.4-10.2); CARBON DIOXIDE 27.8 mmol/L (22-30.0); CHLORIDE 104.8 mmol/L (98-107); CREATININE 0.57 mg/dL (0.60-1.30); GLUCOSE 145.1 mg/dL (74-106); POTASSIUM 4.37 mmol/L (3.5-5.1); SODIUM 136.2 mmol/L (134.5-145); TOTAL PROTEIN 5.62 g/dL (6.3-8.2)
[2021-07-30] MEDS: HUMALOG SUBCUT SCH ×4 (06:23→20:34)
[2021-07-30] MEDS: LANOXIN PO SCH (08:19)
[2021-07-30] MEDS: NYSTATIN ORAL SUSP PO SCH ×3 (08:19→20:34)
[2021-07-30] MEDS: CALAN SR PO SCH ×2 (08:20→20:34)
[2021-07-30] MEDS: PREDNISONE PO SCH (08:20)
[2021-07-30] MEDS: LEXAPRO PO SCH (08:20)
[2021-07-30] MEDS: DIFLUCAN PO SCH (08:20)
[2021-07-30] MEDS: MEGACE PO SCH (08:20)
[2021-07-30] MEDS: LANTUS SUBCUT SCH (08:21)
[2021-07-30] MEDS: INVANZ 1 GM in SODIUM CHLORIDE 50 ML IV SCH (08:21)
[2021-07-30] MEDS: NORCO 5-325 PO PRN ×2 (08:29→16:00)
[2021-07-30] MEDS: COLACE PO PRN (16:00)
[2021-07-30] MEDS: COUMADIN PO SCH (17:26)
[2021-07-30] MEDS: XANAX PO PRN (20:34)
[2021-07-31] MEDS: ATROVENT HFA INHALER (PER PUFF-WITH SPACER) IH SCH ×2 (04:35→10:40)
[2021-07-31] MEDS: VENTOLIN HFA (PER PUFF-WITH SPACER) IH SCH ×2 (04:35→10:38)
[2021-07-31 05:07] LABS: BASOPHILS # (AUTO) 0.1 K/uL (0-0.2); BASOPHILS % (AUTO) 0.5 % (0.0-3.0); EOSINOPHILS # (AUTO) 0.2 K/ul (0.0-0.7); HEMATOCRIT 32.1 % (37.0-47.0); HEMOGLOBIN 10.3 g/dl (12.0-16.0); IMMATURE GRANULOCYTE # (AUTO) 0.3 (0.0-1.0); LYMPHOCYTES # (AUTO) 2.2 K/uL (0.60-3.4); LYMPHOCYTES % (AUTO) 21.4 (10.0-50.0); MEAN CORPUSCULAR HGB CONC 32.1 (31.8-35.4); MEAN CORPUSCULAR VOLUME 93.6 fl (81.0-99.0); MONOCYTES % (AUTO) 9.3 (0-10); NEUTROPHILS # (AUTO) 6.5 K/ul (2.0-6.9); NEUTROPHILS % (AUTO) 63.8 % (42.2-75.2); PLATELET COUNT 221 10^3/uL (140-440); RDW COEFFICIENT OF VARIATION 13.2 % (11.6-14.8); RED BLOOD COUNT 3.43 10^6/ul (4.20-5.40); WHITE BLOOD COUNT 10.26 K/ul (4.6-10.2)
[2021-07-31 05:16] LABS: ALANINE AMINOTRANSFERASE 73.7 U/L (0-35); ALBUMIN 3.15 g/dL (3.5-5.0); ALKALINE PHOSPHATASE 89.8 U/L (53-141); ASPARTATE AMINO TRANSFERASE 70.9 U/L (14-36); BILIRUBIN,TOTAL 0.21 mg/dL (0.2-1.3); BLOOD UREA NITROGEN 19.4 mg/dL (7-17); CALCIUM 8.34 mg/dL (8.4-10.2); CARBON DIOXIDE 24.6 mmol/L (22-30.0); CHLORIDE 104.7 mmol/L (98-107); CREATININE 0.54 mg/dL (0.60-1.30); GLUCOSE 130.4 mg/dL (74-106); POTASSIUM 4.22 mmol/L (3.5-5.1); SODIUM 135.9 mmol/L (134.5-145); TOTAL PROTEIN 5.69 g/dL (6.3-8.2)
[2021-07-31] MEDS: HUMALOG SUBCUT SCH ×2 (05:35→12:00)
[2021-07-31 05:48] VITALS: BP 107/49; TEMP 98.5
--- NOTE | 2021-07-31 08:48 | PCM.PROG ---
Attending Provider: ATTENDING PROVIDER: Dr. SAMUEL BELLO This patient is seen with Lashawn Austin, Nurse Practitioner. DATE OF SERVICE: 07/31/21 SUBJECTIVE: This 86 year old /WHITE F was hospitalized 07/22/21. She is feeling better, still some weakness. Yesterday dressed herself and fixed her hair. Urine output improved. Ready for discharge. REVIEW OF SYSTEMS: CONSTITUTIONAL: No night sweats. No fatigue, malaise, lethargy. No fever or chills. Weakness. HEENT: Eyes: No visual changes. No eye pain. No eye discharge. ENT: No runny nose. No epistaxis. No sinus pain. No odynophagia. No congestion. RESPIRATORY: No cough, no congestion. No hemoptysis. No shortness of breath. CARDIOVASCULAR: No angina symptoms. No CHF symptoms. No atypical chest pain for CAD. No palpitations. No orthopnea.. GASTROINTESTINAL: No abdominal pain. No nausea or vomiting. No diarrhea or constipation. No hematemesis. No hematochezia. GENITOURINARY: No urgency. No frequency. No dysuria. No hematuria. No obstructive symptoms. No discharge. No pain. No significant abnormal bleeding. MUSCULOSKELETAL: No musculoskeletal pain; no joint swelling. NEUROLOGICAL: Awake, alert, oriented to time, place and person. No headache. No neck pain. No syncope. No seizures. No dizziness. PSYCHIATRIC: Not anxious. No depression. No suicidal thoughts. No homicidal thoughts. SKIN: No rash. No lesions. No wounds. ENDOCRINE: No unexplained weight loss. No weight gain. HEMATOLOGIC/LYMPHATIC: No anemia. No purpura. No petechiae. No prolonged or excessive bleeding. No palpable lymph nodes. PHYSICAL EXAMINATION: GENERAL: The patient is awake, alert and oriented, sitting in bed in no distress. VITAL SIGNS: Temperature 98.5 F, Pulse 68, Respiratory Rate 18, BP 107/49, P ulse Ox 100% HEENT: Head normocephalic, atraumatic. Eyes: Extraocular muscles are intact. Pupils are equal, round and reactive to light and accommodation. Ears: No lesions. Nose appeared normal. Throat: No exudate or erythema. NECK: Supple. No JVD, no carotid bruit. No lymphadenopathy or thyromegaly. LUNGS: Diminished breath sounds. Clear to auscultation. Percussion note normal. Chest symmetrical. HEART: S1, S2, no S3. No murmurs. No cyanosis or clubbing. No ascites. Pulses: Dorsalis pedis and posterior tibial pulses +1 to +2 both sides. ABDOMEN: Soft. Non-tender. Bowel sounds active. No CVA tenderness. No mass felt. EXTREMITIES: No edema. Full range of motion of all extremities, equal. NEUROLOGIC: No focal deficit. Cranial nerves II through XII are grossly intact. No headache. No double vision. SKIN: Not dry. Intact. Turgor-normal. LYMPHATIC: No palpable lymph nodes/no lymphedema. MUSCULOSKELETAL: Normal joints with no swelling. Muscle tone is normal. LAB REVIEW: 07/31/21 04:42 07/31/21 04:42 07/31/21 04:42: Sodium 135.9, Potassium 4.22, Chloride 104.7, Carbon Dioxide 24.6, Anion Gap 10.82, BUN 19.4 H, Creatinine 0.54 L, Estimated GFR (MDRD) 107.00, BUN/Creatinine Ratio 35.92, Glucose 130.4 H, Calcium 8.34 L, Total Bilirubin 0.21, AST 70.9 H D, ALT 73.7 H, Alkaline Phosphatase 89.8, Total Protein 5.69 L, Albumin 3.15 L, Globulin 2.54, Albumin/Globulin Ratio 1.24 07/31/21 04:42: PT 25.0 H D, INR 2.34 07/31/21 04:42: WBC 10.26 H, RBC 3.43 L, Hgb 10.3 L, Hct 32.1 L, MCV 93.6, MCH 30.0, MCHC 32.1, RDW Coeff of Leland 13.2, Plt Count 221, Immature Gran % (Auto) 3.0, Neut % (Auto) 63.8, Lymph % (Auto) 21.4, Centre % (Auto) 9.3, Eos % (Auto) 2.0, Baso % (Auto) 0.5, Neut # (Auto) 6.5, Lymph # (Auto) 2.2, Centre # (Auto) 1.0, Eos # (Auto) 0.2, Baso # (Auto) 0.1, Immature Gran # (Auto) 0.3 ASSESSMENT: Please see below. 1. Recurrent UTI, positive ESBL 2. History of emphysematous cystitis 3. Acute COPD exacerbation 4. COPD oxygen dependent 5. Atrial fibrillation 6. Diabetes Mellitus type II 7. Generalized weakness. PLAN: 1. Discharge home 2. Macrobid 50mg daily 3. Resume other medications 4. Continue Coumadin 5. Smoking cessation advised 6. Followup in the office next week. Plan and coordination of the patient's care discussed in the presence of [employer] and nurse. SCRIBED BY: Geoffrey GUADALUPE scribed while in presence of service performed by Dr. Bello/Lashawn Austin APRN on 07/31/21 (1963)
[2021-07-31] MEDS: INVANZ 1 GM in SODIUM CHLORIDE 50 ML IV SCH (09:35)
[2021-07-31] MEDS: LEXAPRO PO SCH (09:35)
[2021-07-31] MEDS: LANOXIN PO SCH (09:35)
[2021-07-31] MEDS: MEGACE PO SCH (09:35)
[2021-07-31] MEDS: NYSTATIN ORAL SUSP PO SCH (09:35)
[2021-07-31] MEDS: LANTUS SUBCUT SCH (09:36)
[2021-07-31] MEDS: NORCO 5-325 PO PRN (09:36)
[2021-07-31] MEDS: DIFLUCAN PO SCH (09:36)
[2021-07-31] MEDS: CALAN SR PO SCH (09:36)
[2021-07-31] MEDS: PREDNISONE PO SCH (09:36)
--- NOTE | 2021-07-31 11:11 | CM.DICTOOL ---
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 AMADOR) CHRONIC BRONCHITIS RIGHT UPPER LOBE NODULE LEFT LOWER LOBE MASS (DR. SAN (HAS COMPLETED 3 RADIATION TREATMENTS)/ DR. TUCKER) RECURRENT UTI EMPHYSEMATOUS CYSTITIS OSTEOARTHRITIS, RIGHT KNEE ANXIETY ANEMIA PERIPHERAL ARTERY DISEASE CORONARY ARTERY DISEASE DYSLIPIDEMIA OSTEOPOROSIS T12 COMPRESSION DEFORMITY, 2020 CHRONIC BACK PAIN RECURRENT FALLS CONTINUED TOBACCO USE (SMOKING) CABG HYSTERECTOMY REMOVAL HEMATOMA LEFT HAND, 11/2020 LAST VITALS Temp Pulse Resp BP Pulse Ox 98.5 F 82 18 107/49 L 100 07/31/21 05:47 07/31/21 09:35 07/31/21 05:47 07/31/21 05:47 07/31/21 05:47 TAKE THESE MEDICATIONS AT HOME Hydrocodone Bitart/Acetaminophen (Hydrocodone Bit/Acetaminophen 5/325 Mg Tablet) 1 tab PO TID PRN PRN Reason: Pain Last Admin: 07/31/21 09:36 Dose: 1 tab Documented by: Alprazolam (Alprazolam 0.25 Mg Tablet) 0.25 mg PO BEDTIME PRN PRN Reason: Anxiety Last Admin: 07/30/21 20:34 Dose: 0.25 mg Documented by: Digoxin (Digoxin 125 Mcg Tablet) 125 mcg PO DAILY [facility] [place] Last Admin: 07/31/21 09:35 Dose: 125 mcg Documented by: Escitalopram Oxalate (Escitalopram Oxalate 10 Mg Tablet) 10 mg PO DAILY [facility] [place] Last Admin: 07/31/21 09:35 Dose: 10 mg Documented by: Insulin Glargine (Insulin Glargine,Hum.Rec.Anlog 100 Units/Ml) 12 unit SUBCUT DAILY [facility] [place] Last Admin: 07/31/21 09:36 Dose: 12 unit Documented by: Insulin Human Lispro (Insulin Lispro 100 Unit/Ml (3 Ml) Vial) 0 unit SUBCUT ACHS [facility] [place] (PER DR. AMADOR INSTRUCTIONS) Last Admin: 07/31/21 05:35 Dose: Not Given Documented by: Ipratropium-albuterol 1 vial Nebulizer QID Megestrol Acetate (Megestrol Acetate 40 Mg Tablet) 40 mg PO DAILY [facility] [place] Last Admin: 07/31/21 09:35 Dose: 40 mg Documented by: Nystatin (Nystatin Susp 500,000 Units/5 Ml Cup) 5 ml PO TID [facility] [place] Last Admin: 07/31/21 09:35 Dose: 5 ml Documented by: Prednisone (Prednisone 10 Mg Tablet) 5 mg PO DAILY [facility] [place] Last Admin: 07/31/21 09:36 Dose: 5 mg Documented by: Verapamil HCl (Verapamil Hcl 180 Mg Tablet.Er) 180 mg PO BID [facility] [place] Last Admin: 07/31/21 09:36 Dose: 180 mg Documented by: Warfarin Sodium (Warfarin Sodium 3 Mg Tablet) 3 mg PO 1700 [facility] [place] Last Admin: 07/30/21 17:26 Dose: 3 mg Documented by: DIFLUCAN 150 MG PO DAILY FOR 3 DAYS (RX) MACROBID 50 MG PO DAILY FOR 30 DAYS (RX) ALLERGIES fenofibrate nanocrystallized [From Tricor] Adverse Reaction (Verified 10/11/20 15:15) fenofibrate,micronized [From Tricor] Adverse Reaction (Verified 10/11/20 15:15) nitrofurantoin [From Macrobid] Adverse Reaction (Verified 05/13/21 16:49) Diarrhea DISCONTINUED MEDICATIONS NONE NEW PRESCRIPTIONS: MACROBID 50 MG PO DAILY FOR 30 DAYS DIFLUCAN 150 MG PO DAILY FOR 3 DAYS SMOKING: STRONGLY ENCOURAGED TO STOP SMOKING SMOKING CESSATION INFORMATION PROVIDED DECLINES NICOTINE PATCH (CAUSES NERVOUSNESS) DISEASE SPECIFIC EDUCATION: URINARY TRACT INFECTION PRESCRIPTIONS, INCLUDING ANTIBIOTIC IMPORTANCE OF HYDRATION AND PROPER NUTRITION APPOINTMENT LAB REVIEW: 07/31/21 04:42 07/31/21 04:42 07/31/21 04:42: Sodium 135.9, Potassium 4.22, Chloride 104.7, Carbon Dioxide 24.6, Anion Gap 10.82, BUN 19.4 H, Creatinine 0.54 L, Estimated GFR (MDRD) 107.00, BUN/Creatinine Ratio 35.92, Glucose 130.4 H, Calcium 8.34 L, Total Bilirubin 0.21, AST 70.9 H D, ALT 73.7 H, Alkaline Phosphatase 89.8, Total Protein 5.69 L, Albumin 3.15 L, Globulin 2.54, Albumin/Globulin Ratio 1.24 07/31/21 04:42: PT 25.0 H D, INR 2.34 07/31/21 04:42: WBC 10.26 H, RBC 3.43 L, Hgb 10.3 L, Hct 32.1 L, MCV 93.6, MCH 30.0, MCHC 32.1, RDW Coeff of Leland 13.2, Plt Count 221, Immature Gran % (Auto) 3.0, Neut % (Auto) 63.8, Lymph % (Auto) 21.4, [place]ph[place] % (Auto) 9.3, Eos % (Auto) 2. 0, Baso % (Auto) 0.5, Neut # (Auto) 6.5, Lymph # (Auto) 2.2, [place]ill # (Auto) 1.0, Eos # (Auto) 0.2, Baso # (Auto) 0.1, Immature Gran # (Auto) 0.3 PLAN: DISCHARGE HOME DIET: AVOID CONCENTRATED SWEETS EAT 3 MEALS DAILY AND BEDTIME SNACK INCLUDE ADEQUATE WATER INTAKE ACTIVITY: GRADUALLY RESUME TOLERATED ENCOURAGED TO CONTINUE THERAPY EXERCISES ENCOURAGED TO USE ROLLATOR WITH AMBULATION CONTINUE TO USE AT 2 LITERS VIA NASAL CANNULA CONTINUOUSLY CONTINUE NEBULIZER TREATMENTS 4 TIMES A DAY AN APPOINTMENT IS SCHEDULED WITH DR. 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 HINOJOSA IS ALERT AND ORIENTED X 4. SHE IS AGREEABLE TO PLANS FOR DISCHARGE HOME TODAY. MRS. HINOJOSA LIVES WITH HER AND CARES FOR HER TEENAGE GRANDDAUGHTER. SHE IS INDEPENDENT WITH ACTIVITIES OF DAILY LIVING. SHE IS OXYGEN DEPENDENT, BUT ALSO REMOVES OXYGEN AT TIMES. MRS. HINOJOSA IS CONTINENT OF BOWEL AND BLADDER. SHE HAS URINARY URGENCY AND DRIBBLING WITH OCCASIONAL INCONTINENCE DUE TO DRIBBLING. MRS. HINOJOSA IS INDEPENDENT WITH BED MOBILITY. SHE TRANSFERS FROM THE BED TO THE CHAIR PER SELF, AND IS OFTEN SEEN WALKING IN THE ROOM WITH HER ROLLATOR. SHE IS SBA WITH AMBULATION IN THE HALLWAY. SHE USES THE ROLLATOR WITH ALL AMBULATION AND CONTINUES TO REPORT SOME WEAKNESS TO THE LOWER EXTREMITIES. SHE ADMITS THE WEAKNESS HAS IMPROVED. MEAL INTAKES ARE GOOD AT 75-100%. HYDRATION STATUS HAS IMPROVED. SKIN IS INTACT. MRS. HINOJOSA HAS A NEBULIZER, CONTINUOUS AND PORTABLE OXYGEN, ROLLATOR, SHOWER CHAIR AND PRIVATE HELP 2 DAYS A WEEK. IN ADDITION, HER DAUGHTER HOMA HELPS FREQUENTLY IN THE HOME AND ACCOMPANIES THE PATIENT TO DOCTOR APPOINTMENTS. SAMUEL BELLO,. MD KEAGAN AHUMADA APRN
--- NOTE | 2021-08-01 09:33 | PN ---
DATE OF SERVICE: 07/26/21 SUBJECTIVE: 86-year-old white female hospitalized with UTI and dehydration. The patient's condition has improved. Kidney functions are normal. Hydration has resolved. Appetite has improved. UTI is under control. REVIEW OF SYSTEMS: CONSTITUTIONAL: Fatigue. No night sweats. No malaise, lethargy. No fever or chills. HEENT: Eyes: No visual changes. No eye pain. No eye discharge. ENT: No runny nose. No epistaxis. No sinus pain. No sore throat. No odynophagia. No congestion. RESPIRATORY: No cough, no congestion. No hemoptysis. No shortness of breath. CARDIOVASCULAR: No angina symptoms. No CHF symptoms. No atypical chest pain for CAD. No palpitations. No PND. No orthopnea. GASTROINTESTINAL: Appetite has improved a lot. No abdominal pain. No nausea or vomiting. No diarrhea or constipation. No hematemesis. No hematochezia. GENITOURINARY: No urgency. No frequency. No dysuria. No hematuria. No obstructive symptoms. No discharge. No pain. No significant abnormal bleeding. MUSCULOSKELETAL: No musculoskeletal pain; no joint swelling. NEUROLOGICAL: No headache. No neck pain. No syncope. No seizures. No dizziness. PSYCHIATRIC: Not anxious. No depression. No suicidal thoughts. No homicidal thoughts. SKIN: No rash. No lesions. No wounds. ENDOCRINE: No unexplained weight loss. No weight gain. HEMATOLOGIC/LYMPHATIC: No anemia. No purpura. No petechiae. No prolonged or excessive bleeding. No palpable lymph nodes. PHYSICAL EXAMINATION: GENERAL: The patient is up walking with help. VITAL SIGNS: Temperature 98.3, pulse 87, respiratory rate 16, BP 132/63. Pulse ox 98%. HEENT: Head normocephalic, atraumatic. Eyes: Extraocular muscles are intact. Pupils are equal, round and reactive to light and accommodation. Ears: No lesions. Nose appeared normal. Throat: No exudate or erythema. NECK: Supple. No JVD, no carotid bruit. No lymphadenopathy or thyromegaly. LUNGS: Decreased breath sounds but clear to auscultation. Percussion note normal. Chest symmetrical. HEART: S1, S2, no S3. No murmurs. No cyanosis or clubbing. No ascites. Pulses: Dorsalis pedis and posterior tibial pulses +1 to +2 bilaterally. ABDOMEN: Soft. Nontender. Bowel sounds active. No CVA tenderness. No mass felt. EXTREMITIES: No edema. Full range of motion of all extremities, equal. NEUROLOGIC: No focal deficit. Cranial nerves II through XII are grossly intact. No headache. No double vision. SKIN: Not dry. Intact. Turgor - normal. LYMPHATIC: No palpable lymph nodes/no lymphedema. MUSCULOSKELETAL: Normal joints with no swelling. Muscle tone is normal. LABS: Hemoglobin 11, hematocrit 33, WBC 10,000, normal differential. Creatinine 0.6, BUN 29, potassium 4.5. ASSESSMENT: 1. Dehydration seems to have resolved. Skin turgor better. 2. Kidney functions are better. 3. UTI is under control. 4. Chronic bronchitis. 5. Chronic COPD with smoker. 6. Coronary artery bypass surgery, stable. 7. Diabetes mellitus. 8. Hyperglycemia from steroid therapy on sliding scale. CONDITION: Improving. TIME SPENT: More than 30 minutes. Plan and coordination of the patient's care discussed in the presence of nurse. STEFANO
--- NOTE | 2021-08-01 09:39 | PN ---
DATE OF SERVICE: 07/27/21 SUBJECTIVE: 86-year-old white female hospitalized with UTI, dehydration, and COPD. The patient's condition has improved. Daughter is present in the room. She is very happy, happy with the patient's progress. She is up and about walking with the daughter. REVIEW OF SYSTEMS: CONSTITUTIONAL: Weakness. No night sweats. No fatigue, malaise, lethargy. No fever or chills. HEENT: Eyes: No visual changes. No eye pain. No eye discharge. ENT: No runny nose. No epistaxis. No sinus pain. No sore throat. No odynophagia. No congestion. RESPIRATORY: No cough, no congestion. No hemoptysis. No shortness of breath. CARDIOVASCULAR: No angina symptoms. No CHF symptoms. No atypical chest pain for CAD. No palpitations. No PND. No orthopnea. GASTROINTESTINAL: Appetite has improved, still weak. No abdominal pain. No nausea or vomiting. No diarrhea or constipation. No hematemesis. No hematochezia. GENITOURINARY: No urgency. No frequency. No dysuria. No hematuria. No obstructive symptoms. No discharge. No pain. No significant abnormal bleeding. MUSCULOSKELETAL: No musculoskeletal pain; no joint swelling. NEUROLOGICAL: No headache. No neck pain. No syncope. No seizures. No dizziness. PSYCHIATRIC: Not anxious. No depression. No suicidal thoughts. No homicidal thoughts. SKIN: No rash. No lesions. No wounds. ENDOCRINE: No unexplained weight loss. No weight gain. HEMATOLOGIC/LYMPHATIC: No anemia. No purpura. No petechiae. No prolonged or excessive bleeding. No palpable lymph nodes. PHYSICAL EXAMINATION: VITAL SIGNS: Temperature 98.3, pulse 68, respiratory rate 18, blood pressure 122/60, pulse ox 99%. HEENT: Head normocephalic, atraumatic. Eyes: Extraocular muscles are intact. Pupils are equal, round and reactive to light and accommodation. Ears: No lesions. Nose appeared normal. Throat: No exudate or erythema. NECK: Supple. No JVD, no carotid bruit. No lymphadenopathy or thyromegaly. LUNGS: Decreased breath sounds but clear to auscultation. Percussion note normal. Chest symmetrical. HEART: S1, S2, no S3. No murmurs. No cyanosis or clubbing. No ascites. Pulses: Dorsalis pedis and posterior tibial pulses +1 to +2 bilaterally. ABDOMEN: Soft. Nontender. Bowel sounds active. No CVA tenderness. No mass felt. EXTREMITIES: No edema. Full range of motion of all extremities, equal. NEUROLOGIC: No focal deficit. Cranial nerves II through XII are grossly intact. No headache. No double vision. SKIN: Not dry. Intact. Turgor - normal. LYMPHATIC: No palpable lymph nodes/no lymphedema. MUSCULOSKELETAL: Normal joints with no swelling. Muscle tone is normal. LABS: Hemoglobin 11, hematocrit 34, WBC 9,600, normal differential. Creatinine 0.6, BUN 25, potassium 4.6, glucose 132. ASSESSMENT: 1. Overall improvement in the patient's dehydration status with improvement in kidney functions. 2. UTI under control. 3. COPD. 4. Bronchitis doing well. 5. No evidence of coronary insufficiency or CHF. Cardiovascular status stable. PLAN: 1. Encourage the patient to eat. 2. Advised to quit smoking. 3. Physical therapy recommended as an outpatient. 4. Cardiac rehab recommended. Condition seems to be improving. TIME SPENT: More than 30 minutes. Plan and coordination of the patient's care discussed in the presence of nurse. STEFANO
--- NOTE | 2021-08-01 09:42 | PN ---
DATE OF SERVICE: 07/28/21 SUBJECTIVE: The patient was seen and examined with the nurse practitioner. The patient goes out to smoke outside the hospital. The hospital law says no smoking so I explained to her so she will not go out to smoke. TIME SPENT: More than 30 minutes. Plan and coordination of the patient's care discussed in the presence of nurse. STEFANO
--- NOTE | 2021-08-01 13:02 | PN ---
DATE OF SERVICE: 07/29/21 SUBJECTIVE: The patient was seen and examined with the nurse practitioner. The patient's condition is stable. She is up and about eating better. The patient's hydration status has improved. Appetite has improved. She hasn't gone out and smoked for the past 24 hours. Strongly advised to quit smoking. Counseling for smoking done. TIME SPENT: More than 30 minutes. Plan and coordination of the patient's care discussed in the presence of nurse. STEFANO
--- NOTE | 2021-08-01 13:10 | PN ---
DATE OF SERVICE: 07/30/21 SUBJECTIVE: 86-year-old white female hospitalized with UTI, dehydration, chronic bronchitis, COPD. The patient hasn't been smoking for the last three days. She is feeling a lot better. She is up and about. Appetite is improved. Daughter is very happy with her progress. The patient is on Ertapenem for ESBL. REVIEW OF SYSTEMS: CONSTITUTIONAL: Weakness and fatigue. No night sweats. No malaise, lethargy. No fever or chills. HEENT: Eyes: No visual changes. No eye pain. No eye discharge. ENT: No runny nose. No epistaxis. No sinus pain. No sore throat. No odynophagia. No congestion. RESPIRATORY: No cough, no congestion. No hemoptysis. No shortness of breath. CARDIOVASCULAR: No angina symptoms. No CHF symptoms. No atypical chest pain for CAD. No palpitations. No PND. No orthopnea. GASTROINTESTINAL: Appetite has improved remarkably. No abdominal pain. No nausea or vomiting. No diarrhea or constipation. No hematemesis. No hematochezia. GENITOURINARY: No urgency. No frequency. No dysuria. No hematuria. No obstructive symptoms. No discharge. No pain. No significant abnormal bleeding. MUSCULOSKELETAL: The patient has been able to walk with help and without help at times. No musculoskeletal pain; no joint swelling. NEUROLOGICAL: No headache. No neck pain. No syncope. No seizures. No dizziness. PSYCHIATRIC: Not anxious. No depression. No suicidal thoughts. No homicidal thoughts. SKIN: No rash. No lesions. No wounds. ENDOCRINE: No unexplained weight loss. No weight gain. HEMATOLOGIC/LYMPHATIC: No anemia. No purpura. No petechiae. No prolonged or excessive bleeding. No palpable lymph nodes. PHYSICAL EXAMINATION: VITAL SIGNS: Temperature 97.5, pulse 77, respiratory rate 18, blood pressure 112/60, pulse ox 97%. HEENT: Head normocephalic, atraumatic. Eyes: Extraocular muscles are intact. Pupils are equal, round and reactive to light and accommodation. Ears: No lesions. Nose appeared normal. Throat: No exudate or erythema. NECK: Supple. No JVD, no carotid bruit. No lymphadenopathy or thyromegaly. LUNGS: Decreased breath sounds but clear to auscultation. Percussion note normal. Chest symmetrical. HEART: S1, S2, no S3. No murmurs. No cyanosis or clubbing. No ascites. Pulses: Dorsalis pedis and posterior tibial pulses +1 to +2 bilaterally. ABDOMEN: Soft. Nontender. Bowel sounds active. No CVA tenderness. No mass felt. EXTREMITIES: No edema. Full range of motion of all extremities, equal. NEUROLOGIC: No focal deficit. Cranial nerves II through XII are grossly intact. No headache. No double vision. SKIN: Not dry. Intact. Turgor - normal. LYMPHATIC: No palpable lymph nodes/no lymphedema. MUSCULOSKELETAL: Normal joints with no swelling. Muscle tone is normal. LABS: Hemoglobin 10.5, hematocrit 32, WBC 11,000, normal differential. Creatinine 0.5, BUN 21, potassium 4.3. ASSESSMENT: 1. UTI seems to be resolving. 2. Dehydration has resolved. 3. Malnutrition. 4. Anemia, chronic. 5. Severe chronic lung disease with history of smoking. 6. Coronary artery bypass surgery with coronary artery disease. 7. Diabetes mellitus. 8. Educate the patient again. Counseling for smoking done. 9. Continue Ertapenem. 10. Advised physical therapy as an outpatient. CONDITION: Improving, stable. TIME SPENT: More than 30 minutes. Plan and coordination of the patient's care discussed in the presence of nurse. STEFANO
--- NOTE | 2021-08-01 13:14 | PN ---
DATE OF SERVICE: 07/31/21 SUBJECTIVE: The patient was seen and examined with the nurse practitioner. The patient's condition has improved remarkably. She is up and about. Nutritional status has improved. UTI is under control. Dehydration has resolved. The patient hasn't smoked for 3 to 4 days. Counseling for smoking done. She will be discharged home on antibiotics, to drink plenty of fluids, quit smoking. TIME SPENT: More than 30 minutes. Plan and coordination of the patient's care discussed in the presence of nurse. STEFANO
--- NOTE | 2021-08-01 13:16 | PN ---
BILLING 07/22/21 ADMISSION DAY LEVEL 5 07/23/21 INTERMEDIATE 07/24/21 INTERMEDIATE 07/25/21 INTERMEDIATE 07/26/21 INTERMEDIATE 07/27/21 INTERMEDIATE 07/28/21 INTERMEDIATE 07/29/21 INTERMEDIATE 07/30/21 INTERMEDIATE 07/31/21 FINAL DAY D IN DISCHARGE MTDD
== END 2021-07-31 12:26 | disposition home or self-care (01) | DRG 690 ==
LOC: LAB 10:42 → MEDSURG A 12:09
PROVIDERS: ADMIT Internal Medicine; ATTEND Internal Medicine
DX: E11.9 Type 2 diabetes mellitus without complications; B37.0 Candidal stomatitis; Z79.899 Other long term (current) drug therapy; I10 Essential (primary) hypertension; R26.2 Difficulty in walking, not elsewhere classified; I48.91 Unspecified atrial fibrillation; R53.1 Weakness; E78.5 Hyperlipidemia, unspecified; F17.210 Nicotine dependence, cigarettes, uncomplicated; E86.0 Dehydration; Z79.4 Long term (current) use of insulin; I73.9 Peripheral vascular disease, unspecified; J41.0 Simple chronic bronchitis; R91.1 Solitary pulmonary nodule; N39.0 Urinary tract infection, site not specified; R60.0 Localized edema; C34.92 Malignant neoplasm of unspecified part of left bronchus or lung; B96.20 Unspecified Escherichia coli [E. coli] as the cause of diseases classified elsewhere; I25.810 Atherosclerosis of coronary artery bypass graft(s) without angina pectoris; Z20.822 Contact with and (suspected) exposure to COVID-19; M81.0 Age-related osteoporosis without current pathological fracture; D64.9 Anemia, unspecified; J44.1 Chronic obstructive pulmonary disease with (acute) exacerbation; Z99.81 Dependence on supplemental oxygen; Z16.12 Extended spectrum beta lactamase (ESBL) resistance

== ENCOUNTER 2021-09-01 11:31 | Inpatient (IN) ==
[2021-09-01 11:51] LABS: BORDETELLA PARAPERTUSSIS (PCR) NOT DETECTED (NOT DETECT); BORDETELLA PERTUSSIS (PCR) NOT DETECTED (NOT DETECT); CHLAMYDIA PNEUMONIAE (PCR) NOT DETECTED (NOT DETECT); CORONAVIRUS 229E (PCR) NOT DETECTED (NOT DETECT); CORONAVIRUS HKU1 (PCR) NOT DETECTED (NOT DETECT); CORONAVIRUS NL63 (PCR) NOT DETECTED (NOT DETECT); CORONAVIRUS OC43 (PCR) NOT DETECTED (NOT DETECT); HUMAN METAPNEUMOVIRUS (PCR) NOT DETECTED (NOT DETECT); HUMAN RHINOVIRUS/ENTEROV (PCR) NOT DETECTED (NOT DETECT); INFLUENZA B (PCR) NOT DETECTED (NOT DETECT); MYCOPLASMA PNEUMONIAE (PCR) NOT DETECTED (NOT DETECT); PARAINFLUENZA VIRUS 1 (PCR) NOT DETECTED (NOT DETECT); PARAINFLUENZA VIRUS 2 (PCR) NOT DETECTED (NOT DETECT); PARAINFLUENZA VIRUS 3 (PCR) NOT DETECTED (NOT DETECT); PARAINFLUENZA VIRUS 4 (PCR) NOT DETECTED (NOT DETECT); RESPIRATORY SYNCYTIAL V (PCR) NOT DETECTED (NOT DETECT); SARS_COV_2 (PCR) NOT DETECTED (NOT DETECT)
[2021-09-01 12:39] LABS: ADENOVIRUS (PCR) NOT DETECTED (NOT DETECT)
[2021-09-01] MEDS ORDERED: TYLENOL PO PRN (13:43)
[2021-09-01] MEDS ORDERED: NITROSTAT SL PRN (13:43)
[2021-09-01] MEDS ORDERED: ATROPINE SULFATE PFS IVP PRN (13:43)
[2021-09-01 13:55] VITALS: BMI 16.5
[2021-09-01] MEDS ORDERED: HUMULIN R SUBCUT PRN (13:57)
[2021-09-01] MEDS ORDERED: ROCEPHIN 1 GM/50 ML D5W 1 GM/50 ML BAG IV SCH (14:00)
[2021-09-01] MEDS ORDERED: SYMBICORT 80-4.5 MCG INHALER IH SCH (14:00)
[2021-09-01] MEDS ORDERED: SOLU-MEDROL 125 MG IVP SCH (14:00)
[2021-09-01 14:15] LABS: BASOPHILS % (AUTO) 0.3 % (0.0-3.0); HEMATOCRIT 33.8 % (37.0-47.0); HEMOGLOBIN 11.2 g/dl (12.0-16.0); IMMATURE GRANULOCYTE # (AUTO) 0.1 (0.0-1.0); LYMPHOCYTES # (AUTO) 0.9 K/uL (0.60-3.4); MEAN CORPUSCULAR HEMOGLOBIN 29.4 pg (27.0-31.0); MEAN CORPUSCULAR HGB CONC 33.1 (31.8-35.4); MEAN CORPUSCULAR VOLUME 88.7 fl (81.0-99.0); MONOCYTES # (AUTO) 0.6 K/uL (0.4-2.0); MONOCYTES % (AUTO) 5.8 (0-10); NEUTROPHILS # (AUTO) 8.4 K/ul (2.0-6.9); NEUTROPHILS % (AUTO) 83.9 % (42.2-75.2); PLATELET COUNT 243 10^3/uL (140-440); RDW COEFFICIENT OF VARIATION 13.3 % (11.6-14.8); RED BLOOD COUNT 3.81 10^6/ul (4.20-5.40); WHITE BLOOD COUNT 10.01 K/ul (4.6-10.2)
[2021-09-01] MEDS: VENTOLIN HFA (PER PUFF-WITH SPACER) IH SCH ×2 (14:20→19:45)
[2021-09-01 14:23] LABS: ALBUMIN 3.81 g/dL (3.5-5.0); ASPARTATE AMINO TRANSFERASE 32.9 U/L (14-36); BILIRUBIN,TOTAL 0.33 mg/dL (0.2-1.3); BLOOD UREA NITROGEN 27.7 mg/dL (7-17); CALCIUM 9.2 mg/dL (8.4-10.2); CARBON DIOXIDE 28.5 mmol/L (22-30.0); CREATININE 0.68 mg/dL (0.60-1.30); GLUCOSE 173.9 mg/dL (74-106); POTASSIUM 4.73 mmol/L (3.5-5.1); SODIUM 133.7 mmol/L (134.5-145); TOTAL PROTEIN 6.74 g/dL (6.3-8.2)
[2021-09-01] MEDS: SODIUM CHLORIDE 1,000 ML IV SCH (14:54)
--- NOTE | 2021-09-01 15:01 | DI ---
EXAM: CHEST FRONTAL VIEW HISTORY: Shortness of breath COMPARISON: 07/22/2021 FINDINGS: Heart size remains within normal limits. Sternotomy wires and atherosclerosis are again n oted. There is diffuse, chronic appearing interstitial accentuation. No acute infiltrates are seen. No vascular congestion. There is no consolidation, visible pleural fluid or pneumothorax. Bones r eveal no acute fracture. IMPRESSION: 1. Chronic lung changes with no consolidated pneumonia or acute infiltrate. 2. Atherosclerotic disease.
[2021-09-01] MEDS ORDERED: XANAX PO PRN (15:25)
[2021-09-01] MEDS ORDERED: HUMALOG SUBCUT SCH ×2 (15:30→16:30)
[2021-09-01] MEDS: SOLU-CORTEF 250 MG IVP SCH ×2 (16:54→20:29)
[2021-09-01] MEDS: COLACE PO SCH (20:09)
[2021-09-01] MEDS: SYMBICORT 160-4.5 MCG INHALER IH SCH (20:09)
[2021-09-01] MEDS: ZOCOR PO SCH (20:09)
[2021-09-01] MEDS: HUMALOG SUBCUT PRN (20:10)
[2021-09-01] MEDS: CALAN SR PO SCH (20:16)
[2021-09-01] MEDS ORDERED: CALAN SR PO SCH (21:00)
[2021-09-02 02:57] LABS: BILIRUBIN,URINE Negative (NEGATIVE); CLARITY,URINE Clear (CLEAR); COLOR,URINE Yellow (YELLOW); KETONES,URINE Negative (NEGATIVE); LEUKOCYTE ESTERASE ,URINE Negative (NEGATIVE); NITRITE,URINE Positive (NEGATIVE); PROTEIN,URINE Negative (NEGATIVE); URINE, BLOOD Trace-intact (NEGATIVE); UROBILINOGEN,URINE 0.2 (0.2)
[2021-09-02 03:03] LABS: BACTERIA,URINE 2+ (NOT PRESENT); GLUCOSE, URINE (UA) 3+ (NEGATIVE); SQUAMOUS EPITHELIAL CELL,UR 0-2 (0-5); URINE RBC, MICROSCOPIC 0-2 (0-2)
[2021-09-02] MEDS: VENTOLIN HFA (PER PUFF-WITH SPACER) IH SCH ×3 (04:25→19:50)
[2021-09-02] MEDS: SOLU-CORTEF 250 MG IVP SCH ×3 (04:52→21:40)
[2021-09-02 05:14] LABS: HEMATOCRIT 30.4 % (37.0-47.0); HEMOGLOBIN 9.9 g/dl (12.0-16.0); MEAN CORPUSCULAR HEMOGLOBIN 29.1 pg (27.0-31.0); MEAN CORPUSCULAR HGB CONC 32.6 (31.8-35.4); MEAN CORPUSCULAR VOLUME 89.4 fl (81.0-99.0); PLATELET COUNT 224 10^3/uL (140-440); RDW COEFFICIENT OF VARIATION 13.2 % (11.6-14.8); WHITE BLOOD COUNT 5.87 K/ul (4.6-10.2)
[2021-09-02 05:38] LABS: ALANINE AMINOTRANSFERASE 20.8 U/L (0-35); ALBUMIN 3.14 g/dL (3.5-5.0); ALKALINE PHOSPHATASE 64.6 U/L (53-141); ASPARTATE AMINO TRANSFERASE 23.6 U/L (14-36); BILIRUBIN,TOTAL 0.21 mg/dL (0.2-1.3); BLOOD UREA NITROGEN 21.8 mg/dL (7-17); CALCIUM 8.39 mg/dL (8.4-10.2); CARBON DIOXIDE 27.1 mmol/L (22-30.0); CHLORIDE 105.8 mmol/L (98-107); CREATININE 0.49 mg/dL (0.60-1.30); GLUCOSE 228.5 mg/dL (74-106); POTASSIUM 4.41 mmol/L (3.5-5.1); SODIUM 137.8 mmol/L (134.5-145); TOTAL PROTEIN 5.91 g/dL (6.3-8.2)
[2021-09-02 05:40] LABS: ANISOCYTOSIS NOT PRESENT (NOT PRESENT)
[2021-09-02 05:56] LABS: PROTHROMBIN TIME 41.9 SEC (9.3-11.0)
[2021-09-02] MEDS: HUMALOG SUBCUT PRN ×4 (06:19→20:22)
[2021-09-02] MEDS: SODIUM CHLORIDE 1,000 ML IV SCH (07:08)
[2021-09-02] MEDS: LEXAPRO PO SCH (08:47)
[2021-09-02] MEDS: CALAN SR PO SCH ×2 (08:47→20:20)
[2021-09-02] MEDS: LANTUS SUBCUT SCH (08:47)
[2021-09-02] MEDS: MEGACE PO SCH (08:48)
[2021-09-02] MEDS: SYMBICORT 160-4.5 MCG INHALER IH SCH ×2 (08:48→20:20)
[2021-09-02] MEDS: LANOXIN PO SCH (08:48)
[2021-09-02] MEDS: INVANZ 1 GM in SODIUM CHLORIDE 50 ML IV SCH (08:49)
--- NOTE | 2021-09-02 08:52 | PCM.PROG ---
Attending Provider: ATTENDING PROVIDER: Dr. SAMUEL BELLO This patient is seen with Lashawn Austin, Nurse Practitioner. DATE OF SERVICE: 09/02/21 SUBJECTIVE: This 86 year old /WHITE F was hospitalized 09/01/21. The patient is resting comfortably. Urinalysis was abnormal. We will change antibiotic a ccording to previous urine culture. INR is improved but still elevated. REVIEW OF SYSTEMS: CONSTITUTIONAL: No night sweats. No fatigue, malaise, lethargy. No fever or chills. Weakness. HEENT: Eyes: No visual changes. No eye pain. No eye discharge. ENT: No runny nose. No epistaxis. No sinus pain. No odynophagia. No congestion. RESPIRATORY: Cough, no congestion. No hemoptysis. No shortness of breath. CARDIOVASCULAR: No angina symptoms. No CHF symptoms. No atypical chest pain for CAD. No palpitations. No orthopnea.. GASTROINTESTINAL: No abdominal pain. No nausea or vomiting. No diarrhea or constipation. No hematemesis. No hematochezia. GENITOURINARY: No urgency. No frequency. No dysuria. No hematuria. No obstructive symptoms. No discharge. No pain. No significant abnormal bleeding. MUSCULOSKELETAL: No musculoskeletal pain; no joint swelling. NEUROLOGICAL: Awake, alert, oriented to time, place and person. No headache. No neck pain. No syncope. No seizures. No dizziness. PSYCHIATRIC: Not anxious. No depression. No suicidal thoughts. No homicidal thoughts. SKIN: No rash. No lesions. No wounds. ENDOCRINE: No unexplained weight loss. No weight gain. HEMATOLOGIC/LYMPHATIC: No anemia. No purpura. No petechiae. No prolonged or excessive bleeding. No palpable lymph nodes. PHYSICAL EXAMINATION: GENERAL: The patient is awake, alert and oriented, lying in bed in no distress. VITAL SIGNS: Temperature 98.7 F, Pulse 75, Respiratory Rate 18, BP 126/56, Pulse Ox 100% HEENT: Head normocephalic, atraumatic. Eyes: Extraocular muscles are intact. Pupils are equal, round and reactive to light and accommodation. Ears: No lesions. Nose appeared normal. Throat: No exudate or erythema. NECK: Supple. No JVD, no carotid bruit. No lymphadenopathy or thyromegaly. LUNGS: Diminished breath sounds. Clear to auscultation. Percussion note normal. Chest symmetrical. HEART: S1, S2, no S3. No murmurs. No cyanosis or clubbing. No ascites. Pulses: Dorsalis pedis and posterior tibial pulses +1 to +2 both sides. ABDOMEN: Soft. Non-tender. Bowel sounds active. No CVA tenderness. No mass felt. EXTREMITIES: No edema. Full range of motion of all extremities, equal. NEUROLOGIC: No focal deficit. Cranial nerves II through XII are grossly intact. No headache. No double vision. SKIN: Not dry. Intact. Turgor-normal. LYMPHATIC: No palpable lymph nodes/no lymphedema. MUSCULOSKELETAL: Normal joints with no swelling. Muscle tone is normal. LAB REVIEW: 09/02/21 04:33 09/02/21 04:33 09/02/21 04:33: Sodium 137.8, Potassium 4.41, Chloride 105.8, Carbon Dioxide 27.1, Anion Gap 9.31, BUN 21.8 H, Creatinine 0.49 L, Estimated GFR (MDRD) 120.00, BUN/Creatinine Ratio 44.48, Glucose 228.5 H D, Calcium 8.39 L, Total Bi lirubin 0.21, AST 23.6, ALT 20.8, Alkaline Phosphatase 64.6, Total Protein 5.91 L, Albumin 3.14 L, Globulin 2.77, Albumin/Globulin Ratio 1.13 09/02/21 04:33: PT 41.9 H D, INR 4.32 H* 09/02/21 04:33: WBC 5.87, RBC 3.40 L, Hgb 9.9 L, Hct 30.4 L, MCV 89.4, MCH 29.1, MCHC 32.6, RDW Coeff of [place] 13.2, Plt Count 224, Neutrophils % (Manual) 90.0 H, Lymphocytes % (Manual) 9.0 L, Monocytes % (Manual) 1.0, Anisocytosis Not present 09/02/21 02:45: Urine Color Yellow, Urine Clarity Clear, Urine pH 6.0, Ur Specific [place] 1.015, Urine Protein Negative, Urine Glucose (UA) 3+ H, Urine Ketones Negative, Urine Blood Trace-intact H, Urine Nitrite Positive H, Urine Bilirubin Negative, Urine Urobilinogen 0.2, Ur Leukocyte Esterase Negative, Urine Microscopic RBC 0-2, Urine Microscopic WBC 2-5, Ur Squamous Epith Cells 0- 2, Urine Bacteria 2+ 09/01/21 14:09: PT 58.0 H, INR 6.08 H* 09/01/21 14:09: Sodium 133.7 L, Potassium 4.73, Chloride 99.0, Carbon Dioxide 28.5, Anion Gap 10.93, BUN 27.7 H, Creatinine 0.68, Estimated GFR (MDRD) 82.00, BUN/Creatinine Ratio 40.73, Glucose 173.9 H, Calcium 9.20, Total Bilirubin 0.33, AST 32.9, ALT 25.0, Alkaline Phosphatase 80.0, Total Protein 6.74, Albumin 3.81, Globulin 2.93, Albumin/Globulin Ratio 1.30 09/01/21 14:09: WBC 10.01, RBC 3.81 L, Hgb 11.2 L, Hct 33.8 L, MCV 88.7, MCH 29.4, MCHC 33.1, RDW Coeff of [place] 13.3, Plt Count 243, Immature Gran % (Auto) 1.0, Neut % (Auto) 83.9 H, Lymph % (Auto) 9.0 L, [place] % (Auto) 5.8, Eos % (Auto) 0.0, Baso % (Auto) 0.3, Neut # (Auto) 8.4 H, Lymph # (Auto) 0.9, [place] # (Auto) 0.6, Eos # (Auto) 0.0, Baso # (Auto) 0.0, Immature Gran # (Auto) 0.1 09/01/21 11:45: Adenovirus (PCR) Not detected, B. pertussis DNA (PCR) Not detected, B.parapertussis DNA PCR Not detected, C. pneumoniae DNA (PCR) Not detected, Coronavirus OC43 (PCR) Not detected, Coronavirus HKU1 (PCR) Not detected, Coronavirus 229E (PCR) Not detected, Coronavirus NL63 (PCR) Not detected, Human Metapneumovir PCR Not detected, Influenza Type A (PCR) Not detected, Influenza B (RT-PCR) Not detected, M. pneumoniae (PCR) Not detected, Parainfluenza 1 (PCR) Not detected, Parainfluenza 2 (PCR) Not detected, Parainfluenza 3 (PCR) Not detected, Parainfluenza 4 (PCR) Not detected, RSV (PCR) Not detected, Entero/Rhino (PCR) Not detected, SARS-CoV-2 (PCR) Not detected ASSESSMENT: Please see below. 1. Acute COPD exacerbation 2. UTI 3. Dehydration 4. Generalized weakness 5. Hypercoagulopathy 6. Diabetes Mellitus type II PLAN: 1. Continue to hole Coumadin 2. Discontinue Rocephin 3. Pharmacy to dose IV Ertapenem 4. Stop IV fluids after this bag 5. Digoxin level Plan and coordination of the patient's care discussed in the presence of Loom Fixer Supervisor and nurse. SCRIBED BY: Jaylene GUADALUPEist scribed while in presence of service performed by Dr. Bello/Lashawn Austin APRN on 09/02/21 ([id number])
[2021-09-02] MEDS ORDERED: COUMADIN PO SCH (09:00)
[2021-09-02] MEDS: NORCO 5-325 PO PRN ×2 (13:24→17:29)
--- NOTE | 2021-09-02 13:46 | HP ---
DATE OF SERVICE: 09/01/2021 REASON FOR HOSPITALIZATION/HISTORY OF PRESENT ILLNESS: The patient is run down. She had radiation . She is complaining of shortness of breath, can't eat, can't walk or dress herself and is coughing. PAST MEDICAL HISTORY: Left lung cancer COPD Hypertension Diabetes Mellitus type II Chronic bronchitis Anemia Atrial fibrillation Smoking pulmonary nodule left PAD CAD/CABG PAST SURGICAL HISTORY: CABG Hysterectomy Colonoscopy 05/21 Dr. Maloney REVIEW OF SYSTEMS: CONSTITUTIONAL: No fever, Fatigue. HEENT: Sinus drainage, no sore throat. RESPIRATORY: Cough, no congestion. CARDIOVASCULAR: No atypical chest pain for coronary artery disease. No angina, CHF symptoms, palpitations. Shortness of breath. GASTROINTESTINAL: No melena or abdominal pain. No GERD. GENITOURINARY: No hematuria, no prostatism, no polyuria. SLIP FEEDER: No blackout, no dizziness, no headache, no double vision. GAIT: Unsteady. MUSCULOSKELETAL: Osteoarthritis pain, no joint swelling. ENDOCRINE: No weight loss, no weight gain. SKIN: Not dry, no rash. PSYCHIATRIC: Not anxious, no depression, no suicidal thoughts, no homicidal thoughts. SOCIAL HISTORY: Marital Status: . Alcohol Usage: No. Tobacco Usage: Yes. FAMILY HISTORY: Father Mother Brother 4 Sister 4 MEDICATIONS: Xanax 0.25mg HS Digoxin 125mg daily Lexapro 10mg daily Gabapentin 300mg BID PRN Insulin PRN Lantus 10 units daily Prednisone 5mg PO daily Megestrol 40ng daily Simvastatin 40mg daily Verapamil 180mg BID Coumadin 3mg daily Colace DUO NEBS BID Macrobid 50mg daily [place] 5-325mg BID Macrobid ALLERGIES: Tricor Keflex PHYSICAL EXAMINATION: V/S: Pulse 88, blood pressure 112/50, temperature 98.6, oxygen saturation 97%. GENERAL APPEARANCE: Oriented times three. Pale, Dry mucus membranes. HEENT: Normal. NECK: No JVP, no bruits. RESPIRATORY: Severely decreased breath sounds. Crackles left middle lobe. CARDIOVASCULAR: S1, S2, no S3 irregular, no murmur. No cyanosis, clubbing. No ascites. GI/ABDOMEN: No tenderness. Bowel sounds are active. EXTREMITIES: Trace edema, pulses +1, equal. SLIP FEEDER: Deep tendon reflexes, sensory, motor and gait all normal. RECTAL: Dr. Maloney 2014/PELVIC: The patient refused all. ASSESSMENT: 1. Acute COPD exacerbation 2. Dehydration 3. Generalized weakness 4. Emphysematous cystitis 5. Recurrent UTI-ESBL 6. Recurrent falls 7. History of compression fracture 8. Atrial fibrillation, Coumadin 9. Diabetes Mellitus type II A1c 8/.1 06/28 10.COPD steroid dependent 11.Right upper lobe nodule, Dr. Mckenna/Taylor 12.Left lower lobe lung cancer Dr. Mckenna/Taylor 13.Chronic bronchitis 14.Leg edema 15.Right knee osteoarthritis 16.Anxiety 17.Anemia 18.PAD 19.CAD 20.CABG '98 21.Osteoporosis 22.Noncompliance of diet, medication and lifestyle 23.Dyslipidemia 24.Smoker 25.Neuropathy 26.Depression PLAN: 1. Admit 2. Respiratory panel in drive through 3. Routine telemetry orders 4. CBC and CMP now and aily 5. INR now and daily 6. Normal saline IV @ 75cc an hour 7. Sputum for culture 8. Chest x-ray 9. U/A with culture 10. Rocephin 1 gram IV daily 11. Solu-Cortef 125mg IV Q 8 hours 12. Symbicort 160 two puffs BID 13. Albuterol inhaler two puffs TID 14. No cardiac markers 15. Regular diet 16. Sliding scale TIME SPENT: More than 70 minutes. MTDD
[2021-09-02] MEDS: COLACE PO SCH (20:19)
[2021-09-02] MEDS: ZOCOR PO SCH (20:20)
[2021-09-02] MEDS ORDERED: XANAX PO SCH (21:00)
[2021-09-03 05:30] LABS: BASOPHILS % (AUTO) 0.2 % (0.0-3.0); HEMATOCRIT 29.7 % (37.0-47.0); HEMOGLOBIN 9.8 g/dl (12.0-16.0); IMMATURE GRANULOCYTE # (AUTO) 0.1 (0.0-1.0); IMMATURE GRANULOCYTE % (AUTO) 0.9 % (0.0-5.0); LYMPHOCYTES # (AUTO) 0.8 K/uL (0.60-3.4); LYMPHOCYTES % (AUTO) 7.8 (10.0-50.0); MEAN CORPUSCULAR HEMOGLOBIN 29.8 pg (27.0-31.0); MEAN CORPUSCULAR VOLUME 90.3 fl (81.0-99.0); MONOCYTES # (AUTO) 0.4 K/uL (0.4-2.0); MONOCYTES % (AUTO) 4.2 (0-10); NEUTROPHILS # (AUTO) 8.9 K/ul (2.0-6.9); NEUTROPHILS % (AUTO) 86.9 % (42.2-75.2); PLATELET COUNT 238 10^3/uL (140-440); RDW COEFFICIENT OF VARIATION 13.3 % (11.6-14.8); RED BLOOD COUNT 3.29 10^6/ul (4.20-5.40); WHITE BLOOD COUNT 10.23 K/ul (4.6-10.2)
[2021-09-03] MEDS: SOLU-CORTEF 250 MG IVP SCH ×3 (05:37→20:21)
[2021-09-03 05:40] LABS: PROTHROMBIN TIME 19.4 SEC (9.3-11.0)
[2021-09-03 05:42] LABS: ALANINE AMINOTRANSFERASE 17.9 U/L (0-35); ALBUMIN 3.04 g/dL (3.5-5.0); ALKALINE PHOSPHATASE 64.3 U/L (53-141); ASPARTATE AMINO TRANSFERASE 23.5 U/L (14-36); BILIRUBIN,TOTAL 0.23 mg/dL (0.2-1.3); BLOOD UREA NITROGEN 20.9 mg/dL (7-17); CALCIUM 8.53 mg/dL (8.4-10.2); CARBON DIOXIDE 28.7 mmol/L (22-30.0); CHLORIDE 106.1 mmol/L (98-107); CREATININE 0.49 mg/dL (0.60-1.30); GLUCOSE 221.9 mg/dL (74-106); POTASSIUM 3.48 mmol/L (3.5-5.1); TOTAL PROTEIN 5.78 g/dL (6.3-8.2)
[2021-09-03] MEDS: VENTOLIN HFA (PER PUFF-WITH SPACER) IH SCH ×3 (05:50→20:45)
[2021-09-03] MEDS: NORCO 5-325 PO PRN (05:54)
[2021-09-03] MEDS: HUMALOG SUBCUT PRN ×4 (06:13→20:48)
[2021-09-03] MEDS: INVANZ 1 GM in SODIUM CHLORIDE 50 ML IV SCH (08:53)
[2021-09-03] MEDS: MEGACE PO SCH (08:53)
[2021-09-03] MEDS: LANTUS SUBCUT SCH (08:53)
[2021-09-03] MEDS: LEXAPRO PO SCH (08:53)
[2021-09-03] MEDS: CALAN SR PO SCH ×2 (08:54→20:20)
[2021-09-03] MEDS: LANOXIN PO SCH (08:54)
[2021-09-03] MEDS: SYMBICORT 160-4.5 MCG INHALER IH SCH ×2 (08:55→20:22)
[2021-09-03] MEDS: K-DUR PO SCH (15:13)
[2021-09-03] MEDS: NORCO 10-325 PO PRN (15:13)
--- NOTE | 2021-09-03 15:23 | RS.PTINEVL ---
Subjective - Patient information Date of Evaluation: 09/03/21 Date of Arrival on Unit: 09/02/21 Admitted From:: Home Diagnosis: acute COPD Usual Living Arrangement: With Spouse Home Environment: House, Stairs (few) Medical History: Hypertension, COPD, Diabetes, Arthritis, Cancer (lung) Medical History Comments:: anemia, anxiety, depression, PAD, CAD, osteoporosis, neuropathy, comp. fx T12, Surgical History: Hysterectomy, CABG Medications: see chart Subjective Information/ Patient Comments:: pt states that she is feeling better today. She states she wants to try to walk so she can get back home. - Level of function Prior to this admission, the patient could do the following:: Partially Dependent Ambulation Current Level of Function: Partially Dependent Current Equipment Used at Home: rollator walker, nebulizer machine, O2, shower chair, (build in), raised toilet chair. Interventions - Objective Patient Orientation: Person, Place, Time, Situation Current Interventions: IV's, Oxygen, Telemetry Range of Motion - ROM Right Upper Extremity AROM: WFL's Left Upper Extremity AROM: WFL's Right Lower Extremity AROM: WFL's Left Lower Extremity AROM: WFL's Muscle Strength - Muscle Strength Right Upper Extremity Strength: Mild Weakness (grossly 4-/5) Left Upper Extremity Strength: Mild Weakness (grossly 4-/5) Right Lower Extremity Strength: Mild Weakness (hip flex 4-/5, knee flex/ext 4/5, ankle DF/PF 4/5) Left Lower Extremity Strength: Mild Weakness (hip flex 4-/5, knee flex/ext 4/5, ankle DF/PF 4/5) Sensation - Sensation Right Upper Extremity Sensation: Intact/Normal Left Upper Extremity Sensation: Intact/Normal Right Lower Extremity Sensation: Intact/Normal Left Lower Extremity Sensation: Intact/Normal Palpation Palpation Findings: Tenderness Comments:: tenderness to palpation R lower leg anterior Balance - Sitting Balance and Reactions Static Sitting Balance: Good Dynamic Sitting Balance: Good - Standing Balance and Reactions Static Standing Balance: Fair Dynamic Standing Balance: Poor Standing Equilibrium Reactions: Delayed Left, Delayed Right Standing Protective Reactions: Delayed Left, Delayed Right Functional Mobility - Bed Mobility Rolling R/L: Independent Scooting: Supervision, CGA Supine to Sit: Supervision Sit to Supine: Supervision - Transfers Sit to Stand: CGA Stand to Sit: CGA - Safety Awareness Safety Awareness: Fair JENNI INDEX SCORE: n/a Ambulation - Ambulation Assistive Device Used: Rollator Orthotic/Prosthetic Device: No Distance: 140ft Assistance needed with Ambulation: CGA Gait Deviations: Narrow Based gait, Forward posture, Short stride Factors Affecting Ambulation: Decreased Balance, Breathing/O2 Saturation, Weakness, Decreased Safety, Limited Endurance Treatment time - Time with patient Length of Evaluation: 21 Total treatment time: 28 Patient Education - Education Patient Education: Activity Modification, Education of Plan of Care Teaching Recipient: Patient Teaching Methods: Discussion Comments: discussion regarding POC Assessment - Assessment Problem List:: Decreased level of function, Requires training/education, Decreased safety/Risk of falls, Weakness, Cognitive status limits abilities Rehab Potential: Good Further Therapy Indicated?: Yes Candidate for Swing Bed for Therapy Services?: Feel pt would not qualify for swing bed due to higher level of function Evaluation Complexity: HISTORY: Medium, EXAM OF BODY SYSTEMS: Medium, CLINICAL PRESENTATION: Medium, CLINICAL DECISION MAKING: Medium Patient's Goal(s): get stronger and go home Short Term Goals GOAL #1: pt transfer sup to/from sit independently Goal to be met by: 09/05/21 GOAL #2: Transfer sit to/from stand SBA Goal to be met by: 09/05/21 GOAL #3: pt amb 140ft with rwx with O2 CGA to SBA no seated rest Goal to be met by: 09/05/21 GOAL #4: Improve BLE strength 4/5 Goal to be met by: 09/05/21 GOAL #5: Improve dyn stand balance fair- Goal to be met by: 09/05/21 Dental Associate Goals GOAL #1: pt tranfer sit to/from stand independently Goal to be met by: 09/08/21 GOAL #2: pt amb functional household distances with RWX, O2 and SBA Goal to be met by: 09/08/21 GOAL #3: Improve dyn stand balance fair Goal to be met by: 09/08/21 Plan Plan of Care: Therapeutic EX, Therapeutic Activity Other:: gait training Frequency of Treatment: 1-2 X day, as tolerated Duration of Treatment: 1 Week Anticipated Discharge Destination: Home Treatment Diagnosis (ICD 10 Codes): difficulty walking R 26.2. impaired balance R 26.81. weakness M62.81 Has the Physician been added for Co-signature?: Yes
[2021-09-03] MEDS ORDERED: COUMADIN PO SCH (17:00)
[2021-09-03] MEDS: COLACE PO SCH (20:20)
[2021-09-03] MEDS: XANAX PO SCH (20:21)
[2021-09-03] MEDS: ZOCOR PO SCH (20:22)
[2021-09-03] MEDS ORDERED: HUMULIN R SUBCUT STA (22:52)
[2021-09-04] MEDS: VENTOLIN HFA (PER PUFF-WITH SPACER) IH SCH ×3 (05:00→20:20)
[2021-09-04 05:38] LABS: HEMATOCRIT 30.8 % (37.0-47.0); HEMOGLOBIN 9.9 g/dl (12.0-16.0); IMMATURE GRANULOCYTE # (AUTO) 0.1 (0.0-1.0); IMMATURE GRANULOCYTE % (AUTO) 0.8 % (0.0-5.0); LYMPHOCYTES # (AUTO) 0.8 K/uL (0.60-3.4); LYMPHOCYTES % (AUTO) 8.6 (10.0-50.0); MEAN CORPUSCULAR HEMOGLOBIN 28.8 pg (27.0-31.0); MEAN CORPUSCULAR HGB CONC 32.1 (31.8-35.4); MEAN CORPUSCULAR VOLUME 89.5 fl (81.0-99.0); MONOCYTES # (AUTO) 0.7 K/uL (0.4-2.0); MONOCYTES % (AUTO) 7.5 (0-10); NEUTROPHILS # (AUTO) 7.6 K/ul (2.0-6.9); NEUTROPHILS % (AUTO) 83.1 % (42.2-75.2); PLATELET COUNT 224 10^3/uL (140-440); RDW COEFFICIENT OF VARIATION 13.1 % (11.6-14.8); RED BLOOD COUNT 3.44 10^6/ul (4.20-5.40); WHITE BLOOD COUNT 9.14 K/ul (4.6-10.2)
[2021-09-04 05:53] LABS: ALANINE AMINOTRANSFERASE 18.6 U/L (0-35); ALBUMIN 3.15 g/dL (3.5-5.0); ALKALINE PHOSPHATASE 61.2 U/L (53-141); ASPARTATE AMINO TRANSFERASE 24.4 U/L (14-36); BILIRUBIN,TOTAL 0.22 mg/dL (0.2-1.3); BLOOD UREA NITROGEN 24.9 mg/dL (7-17); CALCIUM 8.78 mg/dL (8.4-10.2); CARBON DIOXIDE 31.9 mmol/L (22-30.0); CHLORIDE 104.1 mmol/L (98-107); CREATININE 0.46 mg/dL (0.60-1.30); GLUCOSE 166.8 mg/dL (74-106); POTASSIUM 3.28 mmol/L (3.5-5.1); SODIUM 138.6 mmol/L (134.5-145); TOTAL PROTEIN 5.56 g/dL (6.3-8.2)
[2021-09-04] MEDS: SOLU-CORTEF 250 MG IVP SCH ×3 (06:01→21:04)
[2021-09-04] MEDS: NORCO 10-325 PO PRN ×2 (06:07→14:42)
[2021-09-04] MEDS: HUMALOG SUBCUT PRN ×3 (06:14→17:29)
[2021-09-04] MEDS ORDERED: COUMADIN PO STA (08:37)
[2021-09-04] MEDS: INVANZ 1 GM in SODIUM CHLORIDE 50 ML IV SCH (09:03)
[2021-09-04] MEDS: LANTUS SUBCUT SCH (09:05)
[2021-09-04] MEDS: CALAN SR PO SCH ×2 (09:07→21:04)
[2021-09-04] MEDS: SYMBICORT 160-4.5 MCG INHALER IH SCH ×2 (09:07→21:06)
[2021-09-04] MEDS: MEGACE PO SCH (09:08)
[2021-09-04] MEDS: K-DUR PO SCH ×3 (09:08→17:17)
[2021-09-04] MEDS: LEXAPRO PO SCH (09:08)
--- NOTE | 2021-09-04 09:08 | PCM.PROG ---
Attending Provider: ATTENDING PROVIDER: Dr. SAMUEL BELLO This patient is seen with Lashawn Austin, Nurse Practitioner. DATE OF SERVICE: 09/04/21 SUBJECTIVE: This 86 year old /WHITE F was hospitalized 09/01/21. The patient is resting comfortably. Feeling much better. Potassium is a little low today. REVIEW OF SYSTEMS: CONSTITUTIONAL: No night sweats. No fatigue, malaise, lethargy. No fever or chills. Weakness. HEENT: Eyes: No visual changes. No eye pain. No eye discharge. ENT: No runny nose. No epistaxis. No sinus pain. No odynophagia. No congestion. RESPIRATORY: Cough, no congestion. No hemoptysis. No shortness of breath. CARDIOVASCULAR: No angina symptoms. No CHF symptoms. No atypical chest pain for CAD. No palpitations. No orthopnea.. GASTROINTESTINAL: No abdominal pain. No nausea or vomiting. No diarrhea or constipation. No hematemesis. No hematochezia. GENITOURINARY: No urgency. No frequency. No dysuria. No hematuria. No obstructive symptoms. No discharge. No pain. No significant abnormal bleeding. MUSCULOSKELETAL: No musculoskeletal pain; no joint swelling. NEUROLOGICAL: Awake, alert, oriented to time, place and person. No headache. No neck pain. No syncope. No seizures. No dizziness. PSYCHIATRIC: Not anxious. No depression. No suicidal thoughts. No homicidal thoughts. SKIN: No rash. No lesions. No wounds. ENDOCRINE: No unexplained weight loss. No weight gain. HEMATOLOGIC/LYMPHATIC: No anemia. No purpura. No petechiae. No prolonged or excessive bleeding. No palpable lymph nodes. PHYSICAL EXAMINATION: GENERAL: The patient is awake, alert and oriented, lying in bed in no distress. VITAL SIGNS: Temperature 99.0 F, Pulse 94, Respiratory Rate 18, BP 147/71, Pulse Ox 98% HEENT: Head normocephalic, atraumatic. Eyes: Extraocular muscles are intact. Pupils are equal, round and reactive to light and accommodation. Ears: No lesions. Nose appeared normal. Throat: No exudate or erythema. NECK: Supple. No JVD, no carotid bruit. No lymphadenopathy or thyromegaly. LUNGS: Diminished breath sounds. Clear to auscultation. Percussion note normal. Chest symmetrical. HEART: S1, S2, no S3. Irregular heart rate. No murmurs. No cyanosis or clubbing. No ascites. Pulses: Dorsalis pedis and posterior tibial pulses +1 to +2 both sides. ABDOMEN: Soft. Non-tender. Bowel sounds active. No CVA tenderness. No mass felt. EXTREMITIES: No edema. Full range of motion of all extremities, equal. NEUROLOGIC: No focal deficit. Cranial nerves II through XII are grossly intact. No headache. No double vision. SKIN: Not dry. Intact. Turgor-normal. LYMPHATIC: No palpable lymph nodes/no lymphedema. MUSCULOSKELETAL: Normal joints with no swelling. Muscle tone is normal. LAB REVIEW: 09/04/21 05:00 09/04/21 05:00 09/04/21 05:00: PT 13.0 H D, INR 1.26 09/04/21 05:00: Sodium 138.6, Potassium 3.28 L, Chloride 104.1, Carbon Dioxide 31.9 H, Anion Gap 5.88, BUN 24.9 H, Creatinine 0.46 L, Estimated GFR (MDRD) 129.00, BUN/Creatinine Ratio 54.13, Glucose 166.8 H, Calcium 8.78, Total Bilirubin 0.22, AST 24.4, ALT 18.6, Alkaline Phosphatase 61.2, Total Protein 5.56 L, Albumin 3.15 L, Globulin 2.41, Albumin/Globulin Ratio 1.30 09/04/21 05:00: WBC 9.14, RBC 3.44 L, Hgb 9.9 L, Hct 30.8 L, MCV 89.5, MCH 28.8, MCHC 32.1, RDW Coeff of [place] 13.1, Plt Count 224, Immature Gran % (Auto) 0.8, Neut % (Auto) 83.1 H, Lymph % (Auto) 8.6 L, [place] % (Auto) 7.5, Eos % (Auto) 0.0, Baso % (Auto) 0.0, Neut # (Auto) 7.6 H, Lymph # (Auto) 0.8, [place] # (Auto) 0.7, Eos # (Auto) 0.0, Baso # (Auto) 0.0, Immature Gran # (Auto) 0.1 ASSESSMENT: Please see below. 1. Dehydration, improved 2. Acute COPD exacerbation 3. Hypokalemia 4. Atrial fibrillation PLAN: 1. Coumadin 6mg today 2. Fall precautions Plan and coordination of the patient's care discussed in the presence of Welding Machine Operator Plasma Arc and nurse. SCRIBED BY: Geoffrey GUADALUPE scribed while in presence of service performed by Dr. Bello/Lashawn Austin APRN on 09/04/21 ([id number])
[2021-09-04] MEDS: LANOXIN PO SCH (09:09)
--- NOTE | 2021-09-04 13:08 | PN ---
DATE OF SERVICE: 09/01/2021 SUBJECTIVE: Ms. Stapleton was seen and examined in the office. The patient was hospitalized with weakness, bronchitis and failure to thrive and also to rule out UTI. History and Physical was done with Nurse Practitioner in my presence and plan was carried and the patient was hospitalized. She is COVID negative. TIME SPENT: More than 30 minutes. Plan and coordination of the patient's care discussed in the presence of nurse. STEFANO
--- NOTE | 2021-09-04 13:09 | PN ---
DATE OF SERVICE: 09/02/2021 SUBJECTIVE: The patient was seen and examined with the Nurse Practitioner. The patient's condition seems to have improved. Hydration status has improved. She does not have any coronary insufficiency type of symptoms of CHF symptoms. TIME SPENT: More than 30 minutes. Plan and coordination of the patient's care discussed in the presence of nurse. STEFANO
--- NOTE | 2021-09-04 14:05 | PN ---
%.DATE OF SERVICE: 09/03/2021 SUBJECTIVE: 86 year old white female hospitalized with acute exacerbation of COPD, dehydration and generalized weakness. The patient has endstage coronary artery disease with coronary bypass surgery, heavy smoker with severe chronic lung disease and peripheral arterial disease with diabetes mellitus and the patient is malnourished with BMI of 16. Appetite has been poor at times from heavy smoking. REVIEW OF SYSTEMS: CONSTITUTIONAL: No night sweats. No fatigue, malaise, lethargy. No fever or chills. HEENT: Eyes: No visual changes. No eye pain. No eye discharge. ENT: No runny nose. No epistaxis. No sinus pain. No sore throat. No odynophagia. No congestion. RESPIRATORY: No cough, no congestion. No hemoptysis. No shortness of breath. CARDIOVASCULAR: No angina symptoms. No CHF symptoms. No atypical chest pain for CAD. No palpitations. No PND. No orthopnea. GASTROINTESTINAL: No abdominal pain. No nausea or vomiting. No diarrhea or constipation. No hematemesis. No hematochezia. GENITOURINARY: No urgency. No frequency. No dysuria. No hematuria. No obstructive symptoms. No discharge. No pain. No significant abnormal bleeding. MUSCULOSKELETAL: No musculoskeletal pain; no joint swelling. NEUROLOGICAL: No headache. No neck pain. No syncope. No seizures. No dizziness. PSYCHIATRIC: Not anxious. No depression. No suicidal thoughts. No homicidal thoughts. SKIN: No rash. No lesions. No wounds. ENDOCRINE: No unexplained weight loss. No weight gain. HEMATOLOGIC/LYMPHATIC: No anemia. No purpura. No petechiae. No prolonged or excessive bleeding. No palpable lymph nodes. PHYSICAL EXAMINATION: VITAL SIGNS: Temperature 98.8, pulse 89, respiratory rate 18,blood pressure 127/55 and pulse ox 9 HEENT: Head normocephalic, atraumatic. Eyes: Extraocular muscles are intact. Pupils are equal, round and reactive to light and accommodation. Ears: No lesions. Nose appeared normal. Throat: No exudate or erythema. NECK: Supple. No JVD, no carotid bruit. No lymphadenopathy or thyromegaly. LUNGS: Decreased breath sounds but clear to auscultation. Percussion note normal. Chest symmetrical. HEART: S1, S2, no S3. No murmurs. No cyanosis or clubbing. No ascites. Pulses: Dorsalis pedis and posterior tibial pulses +1 to +2 bilaterally. ABDOMEN: Soft. Nontender. Bowel sounds active. No CVA tenderness. No mass felt. EXTREMITIES: No edema. Full range of motion of all extremities, equal. NEUROLOGIC: No focal deficit. Cranial nerves II through XII are grossly intact. No headache. No double vision. SKIN: Not dry. Intact. Turgor - normal. LYMPHATIC: No palpable lymph nodes/no lymphedema. MUSCULOSKELETAL: Normal joints with no swelling. Muscle tone is normal. LABS: Hgb 9.8, hct 29, WBC 10,000 normal differential,creatinine 0.4, BUN 20, potassium 3.48 ASSESSMENT: 1. Acute COPD exacerbation seems to be resolving. The patient's hasn't been coughing much at all. She is on steroids, antibiotics and NEBS. CARDIOVASCULAR STATUS: Stable no evidence of CHF or coronary insufficiency PLAN: 1. Counseling for smoking done. CONDITION: Stable TIME SPENT: More than 30 minutes. Plan and coordination of the patient's care discussed in the presence of nurse. STEFANO
[2021-09-04] MEDS ORDERED: CARDIZEM PO ONE (16:15)
[2021-09-04] MEDS: COUMADIN PO SCH (17:28)
[2021-09-04] MEDS ORDERED: HUMULIN R SUBCUT ONE (20:18)
[2021-09-04] MEDS: XANAX PO SCH (21:03)
[2021-09-04] MEDS: COLACE PO SCH (21:04)
[2021-09-04] MEDS: ZOCOR PO SCH (21:04)
[2021-09-05 05:03] LABS: BASOPHILS % (AUTO) 0.1 % (0.0-3.0); HEMATOCRIT 29.2 % (37.0-47.0); HEMOGLOBIN 9.6 g/dl (12.0-16.0); IMMATURE GRANULOCYTE # (AUTO) 0.1 (0.0-1.0); IMMATURE GRANULOCYTE % (AUTO) 1.1 % (0.0-5.0); LYMPHOCYTES # (AUTO) 0.6 K/uL (0.60-3.4); MEAN CORPUSCULAR HEMOGLOBIN 29.5 pg (27.0-31.0); MEAN CORPUSCULAR HGB CONC 32.9 (31.8-35.4); MEAN CORPUSCULAR VOLUME 89.8 fl (81.0-99.0); MONOCYTES # (AUTO) 0.5 K/uL (0.4-2.0); MONOCYTES % (AUTO) 5.6 (0-10); NEUTROPHILS # (AUTO) 7.7 K/ul (2.0-6.9); NEUTROPHILS % (AUTO) 86.2 % (42.2-75.2); PLATELET COUNT 211 10^3/uL (140-440); RDW COEFFICIENT OF VARIATION 13.2 % (11.6-14.8); RED BLOOD COUNT 3.25 10^6/ul (4.20-5.40); WHITE BLOOD COUNT 8.92 K/ul (4.6-10.2)
[2021-09-05 05:23] LABS: ALANINE AMINOTRANSFERASE 28.4 U/L (0-35); ALBUMIN 2.95 g/dL (3.5-5.0); ALKALINE PHOSPHATASE 65.4 U/L (53-141); ASPARTATE AMINO TRANSFERASE 40.1 U/L (14-36); BILIRUBIN,TOTAL 0.14 mg/dL (0.2-1.3); BLOOD UREA NITROGEN 27.9 mg/dL (7-17); CALCIUM 8.56 mg/dL (8.4-10.2); CARBON DIOXIDE 31.7 mmol/L (22-30.0); CHLORIDE 104.2 mmol/L (98-107); CREATININE 0.51 mg/dL (0.60-1.30); GLUCOSE 227.8 mg/dL (74-106); POTASSIUM 3.89 mmol/L (3.5-5.1); SODIUM 138.8 mmol/L (134.5-145); TOTAL PROTEIN 5.38 g/dL (6.3-8.2)
[2021-09-05] MEDS: VENTOLIN HFA (PER PUFF-WITH SPACER) IH SCH (05:30)
[2021-09-05] MEDS: SOLU-CORTEF 250 MG IVP SCH (05:49)
[2021-09-05] MEDS: HUMALOG SUBCUT PRN ×2 (05:50→11:33)
[2021-09-05] MEDS ORDERED: LANOXIN PO STA (08:51)
[2021-09-05] MEDS: LEXAPRO PO SCH (09:28)
[2021-09-05] MEDS: NORCO 10-325 PO PRN (09:28)
[2021-09-05] MEDS: CALAN SR PO SCH (09:29)
[2021-09-05] MEDS: K-DUR PO SCH (09:29)
[2021-09-05] MEDS: MEGACE PO SCH (09:29)
[2021-09-05] MEDS: LANTUS SUBCUT SCH (09:30)
[2021-09-05] MEDS: LANOXIN PO SCH (09:30)
[2021-09-05] MEDS ORDERED: LANOXIN PO ONE (09:30)
--- NOTE | 2021-09-05 09:32 | PCM.PROG ---
Attending Provider: ATTENDING PROVIDER: Dr. SAMUEL BELLO DATE OF SERVICE: 09/05/21 SUBJECTIVE: This 86 year old /WHITE F was hospitalized 09/01/21 with acute COPD exacerbation. The patient condition has improved. Dehydration has resolved. Ready to go home. INR is low today 1.57. She was given extra 3mg of Coumadin yesterday and will have 3mg extra today before discharge. Advised to continue same Coumadin dose she was on before. REVIEW OF SYSTEMS: CONSTITUTIONAL: No night sweats. No fatigue, malaise, lethargy. No fever or chills. HEENT: Eyes: No visual changes. No eye pain. No eye discharge. ENT: No runny nose. No epistaxis. No sinus pain. No odynophagia. No congestion. RESPIRATORY: No cough, no congestion. No hemoptysis. No shortness of breath. CARDIOVASCULAR: No angina symptoms. No CHF symptoms. No atypical chest pain for CAD. No palpitations. No orthopnea.. GASTROINTESTINAL: No abdominal pain. No nausea or vomiting. No diarrhea or constipation. No hematemesis. No hematochezia. GENITOURINARY: No urgency. No frequency. No dysuria. No hematuria. No obstru ctive symptoms. No discharge. No pain. No significant abnormal bleeding. MUSCULOSKELETAL: No musculoskeletal pain; no joint swelling. NEUROLOGICAL: Awake, alert, oriented to time, place and person. No headache. No neck pain. No syncope. No seizures. No dizziness. PSYCHIATRIC: Not anxious. No depression. No suicidal thoughts. No homicidal thoughts. SKIN: No rash. No lesions. No wounds. ENDOCRINE: No unexplained weight loss. No weight gain. HEMATOLOGIC/LYMPHATIC: No anemia. No purpura. No petechiae. No prolonged or excessive bleeding. No palpable lymph nodes. PHYSICAL EXAMINATION: GENERAL: The patient is awake, alert and oriented, lying in bed in no distress. VITAL SIGNS: Temperature 98.6 F, Pulse 107, Respiratory Rate 18, BP 128/67, Pulse Ox 98% HEENT: Head normocephalic, atraumatic. Eyes: Extraocular muscles are intact. Pupils are equal, round and reactive to light and accommodation. Ears: No lesions. Nose appeared normal. Throat: No exudate or erythema. NECK: Supple. No JVD, no carotid bruit. No lymphadenopathy or thyromegaly. LUNGS: Decreased breath sounds with mild wheezing. Clear to auscultation. Percussion note normal. Chest symmetrical. HEART: S1, S2, no S3. Irregular. No murmurs. No cyanosis or clubbing. No ascites. Pulses: Dorsalis pedis and posterior tibial pulses +1 to +2 both sides. ABDOMEN: Soft. Non-tender. Bowel sounds active. No CVA tenderness. No mass felt. EXTREMITIES: No edema. Full range of motion of all extremities, equal. NEUROLOGIC: No focal deficit. Cranial nerves II through XII are grossly intact. No headache, no double vision or headache. SKIN: Warm and dry. Intact. Turgor-normal. LYMPHATIC: No palpable lymph nodes/no lymphedema. MUSCULOSKELETAL: Normal joints with no swelling. Muscle tone is normal. LAB REVIEW: 09/05/21 04:25 09/05/21 04:25 09/05/21 04:25: PT 16.0 H, INR 1.57 09/05/21 04:25: Sodium 138.8, Potassium 3.89, Chloride 104.2, Carbon Dioxide 31.7 H, Anion Gap 6.79, BUN 27.9 H, Creatinine 0.51 L, Estimated GFR (MDRD) 114.00, BUN/Creatinine Ratio 54.70, Glucose 227.8 H D, Calcium 8.56, Total Bilirubin 0.14 L, AST 40.1 H, ALT 28.4, Alkaline Phosphatase 65.4, Total Protein 5.38 L, Albumin 2.95 L, Globulin 2.43, Albumin/Globulin Ratio 1.21 09/05/21 04:25: WBC 8.92, RBC 3.25 L, Hgb 9.6 L, Hct 29.2 L, MCV 89.8, MCH 29.5, MCHC 32.9, RDW Coeff of [place] 13.2, Plt Count 211, Immature Gran % (Auto) 1.1, Neut % (Auto) 86.2 H, Lymph % (Auto) 7.0 L, [place] % (Auto) 5.6, Eos % (Auto) 0.0, Baso % (Auto) 0.1, Neut # (Auto) 7.7 H, Lymph # (Auto) 0.6, [place] # (Auto) 0.5, Eos # (Auto) 0.0, Baso # (Auto) 0.0, Immature Gran # (Auto) 0.1 ASSESSMENT: Please see below. 1. COPD exacerbation, resolved 2. Dehydration, resolved 3. Counseling for smoking done 4. UTI controlled with antibiotics Ertapenem PLAN: 1. Discharge on Macrobid 2. She will ahve tapering dose of Prednisone. Side effects of Prednisone such as avascular necrosis of femoral bones. 3. The patient is to be seen in office in 5-7 days. Plan and coordination of the patient's care discussed in the presence of Mobile Paramedical Examiner and nurse. PROGNOSIS: Guarded SCRIBED BY: ISH MONROY Tile Helper scribed while in presence of service performed by Dr. SAMUEL BELLO on 09/05/21 ([id number])
--- NOTE | 2021-09-05 09:48 | DS ---
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 SAN/DR. 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 AMADOR) EMPHYSEMATOUS CYSTITIS FREQUENT UTI RECURRENT FALLS COMPRESSION FRACTURE, T12 (2020) ANEMIA ANXIETY OSTEOARTHRITIS, RIGHT KNEE PERIPHERAL ARTERY DISEASE CORONARY ARTERY DISEASE OSTEOPOROSIS DYSLIPIDEMIA CONTINUED TOBACCO USE NEUROPATHY DEPRESSION NON-COMPLIANCE DIET, MEDICATIONS, LIFESTYLE CABG, 1997 HYSTERECTOMY LAST VITALS: Temp Pulse Resp BP Pulse Ox 98.6 F 126 H 24 128/67 99 09/05/21 05:23 09/05/21 08:00 09/05/21 08:00 09/05/21 05:23 09/05/21 10:00 DISCHARGE INSTRUCTIONS: DISCHARGE HOME. CONTINUE USE OF OXYGEN PER NASAL CANNULA AT 2 LITERS. CONTINUE TO USE NEBULIZER TREATMENTS AT LEAST 3-4 TIMES DAILY. CONTINUE ACCU-CHECKS INSTRUCTED TO MONITOR BLOOD SUGARS. CODE STATUS: DO NOT RESUSCITATE. AN APPOINTMENT IS SCHEDULED WITH DR. BELLO/KEAGAN AHUMADA APRN/NADEEM TORO APRN ON September AT 11:15 AM. TAKE THESE MEDICATIONS AT HOME: Hydrocodone Bitart/Acetaminophen (Hydrocodone Bit/Acetaminophen 10/325 Mg Tablet) 1 tab PO BID PRN PRN Reason: MODERATE PAIN Last Admin: 09/05/21 09:28 Dose: 1 tab Documented by: IPRATROPIUM-ALBUTEROL 1 VIAL NEBULIZER QID LAST ADMIN: Alprazolam (Alprazolam 0.25 Mg Tablet) 0.25 mg PO BEDTIME PRN Last Admin: 09/04/21 21:03 Dose: 0.125 mg Documented by: Digoxin (Digoxin 125 Mcg Tablet) 125 mcg PO DAILY [facility] Last Admin: 09/05/21 09:30 Dose: 125 mcg Documented by: Docusate Sodium (Docusate Sodium 100 Mg Capsule) 100 mg PO BEDTIME [facility] Last Admin: 09/04/21 21:04 Dose: 100 mg Documented by: Escitalopram Oxalate (Escitalopram Oxalate 10 Mg Tablet) 10 mg PO DAILY [facility] Last Admin: 09/05/21 09:28 Dose: 10 mg Documented by: PREDNISONE 20 MG BID FOR 4 DAYS, THEN 20 MG DAILY FOR 3 DAYS (NEW RX) LAST ADMIN: PREDNISONE 5 MG PO [facility] DAILY (AFTER COMPLETING 3RD DAY OF PREDNISONE 20 MG DAILY) Insulin Glargine (Insulin Glargine,Hum.Rec.Anlog 100 Units/Ml) 12 unit SUBCUT DAILY [facility] Last Admin: 09/05/21 09:30 Dose: 12 unit Documented by: Insulin Human Lispro (Insulin Lispro 100 Unit/Ml (3 Ml) Vial) 0 unit SUBCUT PRN PRN PRN Reason: SLIDING SCALE Last Admin: 09/05/21 05:50 Dose: 3 unit Documented by: Megestrol Acetate (Megestrol Acetate 40 Mg Tablet) 40 mg PO DAILY [facility] Last Admin: 09/05/21 09:29 Dose: 40 mg Documented by: Simvastatin (Simvastatin 40 Mg Tablet) 40 mg PO BEDTIME [facility] Last Admin: 09/04/21 21:04 Dose: 40 mg Documented by: Verapamil HCl (Verapamil Hcl 180 Mg Tablet.Er) 180 mg PO BID [facility] Last Admin: 09/05/21 09:29 Dose: 180 mg Documented by: Warfarin Sodium (Warfarin Sodium 3 Mg Tablet) 6 mg PO QPM [facility] Stop: 09/05/21 16:59 Last Admin: 09/04/21 17:28 Dose: 6 mg Documented by: MACRODANTIN 50 MG PO DAILY ALLERGIES: fenofibrate nanocrystallized [From Tricor] Adverse Reaction (Verified 10/11/20 15:15) fenofibrate,micronized [From Tricor] Adverse Reaction (Verified 10/11/20 15:15) nitrofurantoin [From Macrobid] Adverse Reaction (Verified 05/13/21 16:49) Diarrhea DISCONTINUED MEDICATIONS: NONE NEW PRESCRIPTIONS: PREDNISONE 20 MG BID FOR 4 DAYS, THEN 20 MG DAILY FOR 3 DAYS THEN RESUME HOME DOSE OF 5 MG DAILY ON September SMOKING: STRONGLY ADVISED TO STOP SMOKING DISEASE SPECIFIC EDUCATION: NUTRITION HYDRATION ORAL STEROIDS AND RISK OF GI IRRITATION, AVASCULAR NECROSIS ACTIVITY LAB REVIEW: 09/05/21 04:25 09/05/21 04:25 09/05/21 04:25: PT 16.0 H, INR 1.57 09/05/21 04:25: Sodium 138.8, Potassium 3.89, Chloride 104.2, Carbon Dioxide 31.7 H, Anion Gap 6.79, BUN 27.9 H, Creatinine 0.51 L, Estimated GFR (MDRD) 114.00, BUN/Creatinine Ratio 54.70, Glucose 227.8 H D, Calcium 8.56, Total Bilirubin 0.14 L, AST 40.1 H, ALT 28.4, Alkaline Phosphatase 65.4, Total Protein 5.38 L, Albumin 2.95 L, Globulin 2.43, Albumin/Globulin Ratio 1.21 09/05/21 04:25: WBC 8.92, RBC 3.25 L, Hgb 9.6 L, Hct 29.2 L, MCV 89.8, MCH 29.5, MCHC 32.9, RDW Coeff of [place] 13.2, Plt Count 211, Immature Gran % (Auto) 1.1, Neut % (Auto) 86.2 H, Lymph % (Auto) 7.0 L, [place] % (Auto) 5.6, Eos % (Auto) 0.0, Baso % (Auto) 0.1, Neut # (Auto) 7.7 H, Lymph # (Auto) 0.6, [place] # (Auto) 0.5, Eos # (Auto) 0.0, Baso # (Auto) 0.0, Immature Gran # (Auto) 0.1 DIET: REGULAR DIET TOLERATED LIQUIDS ENCOURAGED, ESPECIALLY WATER WITH MEDICATIONS ACTIVITY: RESUME ACTIVITY TOLERATED WALK INDOORS THRU THE HOUSE SEVERAL TIMES A DAY USE WALKER FOR AMBULATION HOSPITAL COURSE: 86 year old white female hospitalized with COPD exacerbation and was treated with Rocephin initially with NEBS, inhalers and steroids. IV fluids were given for dehydration. The patient later on was switched to Ertapenem for ESBL UTI. No symptoms of UTI, urine is clear. The patient will be discharge on Macrobid for UTI chronic therapy. She is going to be on tapering dose of Prednisone. Counseling for smoking done. The patient had episode of atrial fibrillation paroxysmal yesterday and was given one dose of Cardizem. She will have one dose extra of Lanoxin today. She is on Verapamil. Cardiovascular status is stable. Diabetes mellitus gets out of control on steroids. No changes were made. COVID negative. The patient is DNR. TIME SPENT: More than 60 minutes. MTDD
[2021-09-05] MEDS: SYMBICORT 160-4.5 MCG INHALER IH SCH (10:02)
[2021-09-05] MEDS: INVANZ 1 GM in SODIUM CHLORIDE 50 ML IV SCH (10:03)
[2021-09-05 11:03] VITALS: BP 142/78; TEMP 97.8
--- NOTE | 2021-09-05 11:43 | CM.DICTOOL ---
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 SAN/DR. TUCKER) RADIATION THERAPY (LAST TREATMENT 08/28) ATRIAL FIBRILLATION SNF ANTICOAGULANT USE (ON COUMADIN) COPD, MODERATE TO SEVERE (HOME OXYGEN AND STEROID DEPENDENT) DIABETES MELLITUS, TYPE 2 (DR. AMADOR) EMPHYSEMATOUS CYSTITIS FREQUENT UTI RECURRENT FALLS COMPRESSION FRACTURE, T12 (2020) ANEMIA ANXIETY OSTEOARTHRITIS, RIGHT KNEE PERIPHERAL ARTERY DISEASE CORONARY ARTERY DISEASE OSTEOPOROSIS DYSLIPIDEMIA CONTINUED TOBACCO USE NEUROPATHY DEPRESSION NON-COMPLIANCE DIET, MEDICATIONS, LIFESTYLE CABG, 1997 HYSTERECTOMY LAST VITALS Temp Pulse Resp BP Pulse Ox 98.6 F 126 H 24 128/67 99 09/05/21 05:23 09/05/21 08:00 09/05/21 08:00 09/05/21 05:23 09/05/21 10:00 TAKE THESE MEDICATIONS AT HOME Hydrocodone Bitart/Acetaminophen (Hydrocodone Bit/Acetaminophen 10/325 Mg Tablet) 1 tab PO BID PRN PRN Reason: MODERATE PAIN Last Admin: 09/05/21 09:28 Dose: 1 tab Documented by: IPRATROPIUM-ALBUTEROL 1 VIAL NEBULIZER QID LAST ADMIN: Alprazolam (Alprazolam 0.25 Mg Tablet) 0.25 mg PO BEDTIME PRN Last Admin: 09/04/21 21:03 Dose: 0.125 mg Documented by: Digoxin (Digoxin 125 Mcg Tablet) 125 mcg PO DAILY [facility] Last Admin: 09/05/21 09:30 Dose: 125 mcg Documented by: Docusate Sodium (Docusate Sodium 100 Mg Capsule) 100 mg PO BEDTIME [facility] Last Admin: 09/04/21 21:04 Dose: 100 mg Documented by: Escitalopram Oxalate (Escitalopram Oxalate 10 Mg Tablet) 10 mg PO DAILY [facility] Last Admin: 09/05/21 09:28 Dose: 10 mg Documented by: PREDNISONE 20 MG BID FOR 4 DAYS, THEN 20 MG DAILY FOR 3 DAYS (NEW RX) LAST ADMIN: PREDNISONE 5 MG PO [facility] DAILY (AFTER COMPLETING 3RD DAY OF PREDNISONE 20 MG DAILY) Insulin Glargine (Insulin Glargine,Hum.Rec.Anlog 100 Units/Ml) 12 unit SUBCUT DAILY [facility] Last Admin: 09/05/21 09:30 Dose: 12 unit Documented by: Insulin Human Lispro (Insulin Lispro 100 Unit/Ml (3 Ml) Vial) 0 unit SUBCUT PRN PRN PRN Reason: SLIDING SCALE Last Admin: 09/05/21 05:50 Dose: 3 unit Documented by: Megestrol Acetate (Megestrol Acetate 40 Mg Tablet) 40 mg PO DAILY [facility] Last Admin: 09/05/21 09:29 Dose: 40 mg Documented by: Simvastatin (Simvastatin 40 Mg Tablet) 40 mg PO BEDTIME [facility] Last Admin: 09/04/21 21:04 Dose: 40 mg Documented by: Verapamil HCl (Verapamil Hcl 180 Mg Tablet.Er) 180 mg PO BID [facility] Last Admin: 09/05/21 09:29 Dose: 180 mg Documented by: Warfarin Sodium (Warfarin Sodium 3 Mg Tablet) 6 mg PO QPM [facility] Stop: 09/05/21 16:59 Last Admin: 09/04/21 17:28 Dose: 6 mg Documented by: MACRODANTIN 50 MG PO DAILY ALLERGIES fenofibrate nanocrystallized [From Tricor] Adverse Reaction (Verified 10/11/20 15:15) fenofibrate,micronized [From Tricor] Adverse Reaction (Verified 10/11/20 15:15) nitrofurantoin [From Macrobid] Adverse Reaction (Verified 05/13/21 16:49) Diarrhea DISCONTINUED MEDICATIONS NONE NEW PRESCRIPTIONS: PREDNISONE 20 MG BID FOR 4 DAYS, THEN 20 MG DAILY FOR 3 DAYS THEN RESUME HOME DOSE OF 5 MG DAILY ON September SMOKING: STRONGLY ADVISED TO STOP SMOKING DISEASE SPECIFIC EDUCATION: NUTRITION HYDRATION ORAL STEROIDS AND RISK OF GI IRRITATION, AVASCULAR NECROSIS ACTIVITY LAB REVIEW: 09/05/21 04:25 09/05/21 04:25 09/05/21 04:25: PT 16.0 H, INR 1.57 09/05/21 04:25: Sodium 138.8, Potassium 3.89, Chloride 104.2, Carbon Dioxide 31.7 H, Anion Gap 6.79, BUN 27.9 H, Creatinine 0.51 L, Estimated GFR (MDRD) 114.00, BUN/Creatinine Ratio 54.70, Glucose 227.8 H D, Calcium 8.56, Total Bilirubin 0.14 L, AST 40.1 H, ALT 28.4, Alkaline Phosphatase 65.4, Total Protein 5.38 L, Albumin 2.95 L, Globulin 2.43, Albumin/Globulin Ratio 1.21 09/05/21 04:25: WBC 8.92, RBC 3.25 L, Hgb 9.6 L, Hct 29.2 L, MCV 89.8, MCH 29.5, MCHC 32.9, RDW Coeff of [place] 13.2, Plt Count 211, Immature Gran % (Auto) 1.1, Neut % (Auto) 86.2 H, Lymph % (Auto) 7.0 L, [place] % (Auto) 5.6, Eos % (Auto) 0.0, Baso % (Auto) 0.1, Neut # (Auto) 7.7 H, Lymph # (Auto) 0.6, [place] # (Auto) 0.5, Eos # (Auto) 0.0, Baso # (Auto) 0.0, Immature Gran # (Auto) 0.1 PLAN: DISCHARGE HOME DIET: REGULAR DIET TOLERATED LIQUIDS ENCOURAGED, ESPECIALLY WATER WITH MEDICATIONS ACTIVITY: RESUME ACTIVITY TOLERATED WALK INDOORS THRU THE HOUSE SEVERAL TIMES A DAY USE WALKER FOR AMBULATION CONTINUE USE OF OXYGEN PER NASAL CANNULA AT 2 LITERS CONTINUE TO USE NEBULIZER TREATMENTS AT LEAST 3-4 TIMES DAILY CONTINUE ACCU-CHECKS INSTRUCTED TO MONITOR BLOOD SUGARS CODE STATUS: DO NOT RESUSCITATE AN APPOINTMENT IS SCHEDULED WITH DR. 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 HINOJOSA IS ALERT AND ORIENTED X 4. SHE IS PLEASED AND AGREEABLE WITH PLANS TO DISCHARGE HOME TODAY. MRS. HINOJOSA LIVES AT HOME WITH HER AND TEENAGE GRANDDAUGHTER. HER DAUGHTER, HOMA VISITS FREQUENTLY AND HELPS PATIENT WITH ADL'S, APPOINTMENTS. MRS. HINOJOSA HAS OXYGEN, NEBULIZER, ROLLATOR, SHOWER CHAIR, GLUCOSE MONITOR (KAYLAN) FOR HER USE AT HOME. SHE ALSO HAS PRIVATE HELP ARRANGED BY THE DAUGHTER. MRS. HINOJOSA REQUIRES SOME ASSISTANCE WITH BATHING, BUT IS ABLE TO COMPLETE MOST OF BATHING AND DRESSING TASKS ON HER OWN. SHE IS CONTINENT OF BOWEL AND BLADDER, BUT WEARS DEPENDS UNDERGARMENTS DUE TO URINARY URGENCY AND DRIBBLING. MEAL CONSUMPTION HAS BEEN FAIR TO GOOD WITH INTAKES OF 50-100% NOTED. HYDRATION STATUS HAS IMPROVED. SKIN IS INTACT WITH SCATTERED AREAS OF BRUISING NOTED TO THE UPPER AND LOWER EXTREMITIES. MRS. HINOJOSA IS INDEPENDENT WITH BED MOBILITY. SHE IS AMBULATORY WITH USE OF A ROLLATOR IN THE ROOM, TO THE BATHROOM AND IN THE HALLWAY WITH FAMILY, OR STAFF MEMBERS. SAMUEL BELLO MD
[2021-09-05] MEDS: COUMADIN PO SCH (12:00)
[2021-09-05] MEDS ORDERED: COUMADIN PO SCH ×2 (12:00→17:00)
--- NOTE | 2021-09-09 14:00 | PN ---
DATE OF SERVICE: 09/04/2021 SUBJECTIVE: The patient was seen and examined with the Nurse Practitioner. The patient's condition overall has improved. This afternoon was in atrial flutter with rate of 120-130 per minute. Carotid massage didn't make any difference. Given Cardizem 60mg PO. ST-T wave changes in arteries nonspecific. The patient has it for a long time. The patient is asymptomatic. No symptoms of coronary insufficiency or CHF. Counseling for smoking done. TIME SPENT: More than 30 minutes. Plan and coordination of the patient's care discussed in the presence of nurse. STEFANO
== END 2021-09-05 13:20 | disposition home or self-care (01) | DRG 191 ==
LOC: LAB 11:31 → MEDSURG A 13:24
PROVIDERS: ADMIT Internal Medicine; ATTEND Internal Medicine
DX: E11.65 Type 2 diabetes mellitus with hyperglycemia; F17.200 Nicotine dependence, unspecified, uncomplicated; Z20.822 Contact with and (suspected) exposure to COVID-19; T81.82XA Emphysema (subcutaneous) resulting from a procedure, initial encounter; J44.1 Chronic obstructive pulmonary disease with (acute) exacerbation; M81.0 Age-related osteoporosis without current pathological fracture; F33.9 Major depressive disorder, recurrent, unspecified; I25.810 Atherosclerosis of coronary artery bypass graft(s) without angina pectoris; R60.0 Localized edema; M62.81 Muscle weakness (generalized); E86.0 Dehydration; D64.9 Anemia, unspecified; F41.9 Anxiety disorder, unspecified; I48.91 Unspecified atrial fibrillation; E78.5 Hyperlipidemia, unspecified; Z79.01 Long term (current) use of anticoagulants; N39.0 Urinary tract infection, site not specified; J42 Unspecified chronic bronchitis

== ENCOUNTER 2021-10-07 11:26 | Inpatient (IN) ==
[2021-10-07 11:38] LABS: BORDETELLA PARAPERTUSSIS (PCR) NOT DETECTED (NOT DETECT); BORDETELLA PERTUSSIS (PCR) NOT DETECTED (NOT DETECT); CHLAMYDIA PNEUMONIAE (PCR) NOT DETECTED (NOT DETECT); CORONAVIRUS 229E (PCR) NOT DETECTED (NOT DETECT); CORONAVIRUS HKU1 (PCR) NOT DETECTED (NOT DETECT); CORONAVIRUS NL63 (PCR) NOT DETECTED (NOT DETECT); CORONAVIRUS OC43 (PCR) NOT DETECTED (NOT DETECT); HUMAN METAPNEUMOVIRUS (PCR) NOT DETECTED (NOT DETECT); HUMAN RHINOVIRUS/ENTEROV (PCR) NOT DETECTED (NOT DETECT); INFLUENZA B (PCR) NOT DETECTED (NOT DETECT); MYCOPLASMA PNEUMONIAE (PCR) NOT DETECTED (NOT DETECT); PARAINFLUENZA VIRUS 1 (PCR) NOT DETECTED (NOT DETECT); PARAINFLUENZA VIRUS 2 (PCR) NOT DETECTED (NOT DETECT); PARAINFLUENZA VIRUS 3 (PCR) NOT DETECTED (NOT DETECT); PARAINFLUENZA VIRUS 4 (PCR) NOT DETECTED (NOT DETECT); RESPIRATORY SYNCYTIAL V (PCR) NOT DETECTED (NOT DETECT); SARS_COV_2 (PCR) NOT DETECTED (NOT DETECT)
[2021-10-07 12:27] LABS: ADENOVIRUS (PCR) NOT DETECTED (NOT DETECT)
[2021-10-07] MEDS ORDERED: NITROSTAT SL PRN (13:16)
[2021-10-07] MEDS ORDERED: TYLENOL PO PRN (13:16)
[2021-10-07] MEDS ORDERED: ATROPINE SULFATE PFS IVP PRN (13:16)
[2021-10-07 13:29] LABS: ABG O2 HGB 90.8 % (95-100); ABG PH 7.49 (7.35-7.45); BEecf 5.7 (-2.0-3.0); MetHb 0.5 (0-1.5); TCO2 30.2 (19-24); sO2 95.2 % (94-98); tHb 10.9 g/dl (11.7-17.4)
[2021-10-07 13:33] VITALS: BMI 15.9
[2021-10-07 13:39] LABS: BASOPHILS % (AUTO) 0.2 % (0.0-3.0); HEMATOCRIT 32.8 % (37.0-47.0); HEMOGLOBIN 10.5 g/dl (12.0-16.0); IMMATURE GRANULOCYTE # (AUTO) 0.1 (0.0-1.0); LYMPHOCYTES # (AUTO) 0.8 K/uL (0.60-3.4); LYMPHOCYTES % (AUTO) 6.2 (10.0-50.0); MEAN CORPUSCULAR HEMOGLOBIN 28.1 pg (27.0-31.0); MEAN CORPUSCULAR VOLUME 87.7 fl (81.0-99.0); MONOCYTES # (AUTO) 0.7 K/uL (0.4-2.0); MONOCYTES % (AUTO) 5.5 (0-10); NEUTROPHILS # (AUTO) 10.9 K/ul (2.0-6.9); NEUTROPHILS % (AUTO) 87.1 % (42.2-75.2); PLATELET COUNT 296 10^3/uL (140-440); RED BLOOD COUNT 3.74 10^6/ul (4.20-5.40); WHITE BLOOD COUNT 12.45 K/ul (4.6-10.2)
[2021-10-07 13:51] LABS: ALANINE AMINOTRANSFERASE 24.3 U/L (0-35); ALBUMIN 3.53 g/dL (3.5-5.0); BILIRUBIN,TOTAL 0.34 mg/dL (0.2-1.3); BLOOD UREA NITROGEN 27.8 mg/dL (7-17); CALCIUM 8.98 mg/dL (8.4-10.2); CARBON DIOXIDE 26.1 mmol/L (22-30.0); CHLORIDE 100.4 mmol/L (98-107); CREATININE 0.83 mg/dL (0.60-1.30); GLUCOSE 270.6 mg/dL (74-106); POTASSIUM 4.64 mmol/L (3.5-5.1); SODIUM 134.6 mmol/L (134.5-145); TOTAL PROTEIN 6.36 g/dL (6.3-8.2)
[2021-10-07] MEDS ORDERED: ROCEPHIN 1 GM/50 ML D5W 1 GM/50 ML BAG IV SCH (14:00)
[2021-10-07 14:09] LABS: PROTHROMBIN TIME 19.8 SEC (9.3-11.0)
--- NOTE | 2021-10-07 14:19 | DI ---
EXAM: PA and lateral views of the chest HISTORY: Shortness of breath COMPARISON: Chest x-ray 09/01/2021 with multiple priors FINDINGS: The cardiomediastinal silhouette is normal. The lung bases are hyperinflated. There are calcified granulomas. There is no pneumothorax or pleural effusion. There is no consolidation, nodu le or mass. The osseous structures are unremarkable. IMPRESSION: Hyperinflated lungs suggestive of chronic obstructive pulmonary disease with no acute co nsolidation
[2021-10-07] MEDS ORDERED: NEURONTIN PO PRN (14:30)
[2021-10-07] MEDS ORDERED: COLACE PO PRN (14:30)
[2021-10-07] MEDS ORDERED: SENNOSIDES DOCUSATE SODIUM PO PRN (15:17)
[2021-10-07] MEDS ORDERED: SENNA PO PRN (15:19)
[2021-10-07] MEDS: DIFLUCAN PO SCH (15:19)
[2021-10-07] MEDS: SODIUM CHLORIDE 1,000 ML IV SCH ×3 (15:19→17:23)
[2021-10-07] MEDS: MERREM 1 GM/50 ML NACL 1 GM/50 ML BAG IV SCH ×2 (15:19→20:59)
--- NOTE | 2021-10-07 16:28 | DI ---
EXAM: Right hip. Two views HISTORY: Right hip pain. Fall. Bruising. COMPARISON: None. FINDINGS: AP and lateral views of the right hip. There are no acute or healing fractures. There ar e no lytic or blastic lesions. No evidence of joint effusion. No significant degenerative changes a re seen. IMPRESSION: Normal right hip.
[2021-10-07 17:18] LABS: BILIRUBIN,URINE Negative (NEGATIVE); CLARITY,URINE Cloudy (CLEAR); COLOR,URINE Yellow (YELLOW); GLUCOSE, URINE (UA) Negative (NEGATIVE); KETONES,URINE Negative (NEGATIVE); LEUKOCYTE ESTERASE ,URINE Trace (NEGATIVE); NITRITE,URINE Positive (NEGATIVE); PROTEIN,URINE 1+ (NEGATIVE); URINE, BLOOD Trace-intact (NEGATIVE); UROBILINOGEN,URINE 0.2 (0.2)
[2021-10-07] MEDS: COUMADIN PO SCH (17:20)
[2021-10-07] MEDS: PROTONIX PO SCH (17:20)
[2021-10-07] MEDS: CARAFATE PO SCH ×2 (17:20→20:59)
[2021-10-07] MEDS: NYSTATIN ORAL SUSP PO SCH ×2 (17:20→20:59)
[2021-10-07 17:23] LABS: BACTERIA,URINE 4+ (NOT PRESENT)
[2021-10-07] MEDS: NORCO 5-325 PO PRN (17:26)
[2021-10-07] MEDS: DUONEB NEB SCH (19:55)
[2021-10-07] MEDS: CALAN SR PO SCH (20:59)
[2021-10-07] MEDS: ZOCOR PO SCH (20:59)
[2021-10-07] MEDS: XANAX PO SCH (20:59)
[2021-10-07] MEDS ORDERED: NORCO 5-325 PO SCH (21:00)
[2021-10-07] MEDS: HUMULIN R SUBCUT PRN (21:00)
[2021-10-07] MEDS ORDERED: CALAN SR PO SCH (21:00)
[2021-10-07] MEDS: SOLU-CORTEF 100 MG IVP SCH (21:04)
[2021-10-07] MEDS: SYMBICORT 160-4.5 MCG INHALER IH SCH (21:04)
[2021-10-08] MEDS: DUONEB NEB SCH ×3 (04:45→20:18)
[2021-10-08] MEDS: SODIUM CHLORIDE 1,000 ML IV SCH ×10 (05:29→23:42)
[2021-10-08 05:31] LABS: BASOPHILS % (AUTO) 0.1 % (0.0-3.0); HEMATOCRIT 30.7 % (37.0-47.0); HEMOGLOBIN 9.7 g/dl (12.0-16.0); IMMATURE GRANULOCYTE # (AUTO) 0.2 (0.0-1.0); IMMATURE GRANULOCYTE % (AUTO) 1.8 % (0.0-5.0); LYMPHOCYTES # (AUTO) 0.9 K/uL (0.60-3.4); LYMPHOCYTES % (AUTO) 11.2 (10.0-50.0); MEAN CORPUSCULAR HEMOGLOBIN 28.3 pg (27.0-31.0); MEAN CORPUSCULAR HGB CONC 31.6 (31.8-35.4); MEAN CORPUSCULAR VOLUME 89.5 fl (81.0-99.0); MONOCYTES # (AUTO) 0.3 K/uL (0.4-2.0); MONOCYTES % (AUTO) 3.8 (0-10); NEUTROPHILS % (AUTO) 83.1 % (42.2-75.2); PLATELET COUNT 272 10^3/uL (140-440); RDW COEFFICIENT OF VARIATION 14.2 % (11.6-14.8); RED BLOOD COUNT 3.43 10^6/ul (4.20-5.40); WHITE BLOOD COUNT 8.38 K/ul (4.6-10.2)
[2021-10-08 05:46] LABS: ALBUMIN 3.05 g/dL (3.5-5.0); ALKALINE PHOSPHATASE 69.2 U/L (53-141); ASPARTATE AMINO TRANSFERASE 24.2 U/L (14-36); BILIRUBIN,TOTAL 0.23 mg/dL (0.2-1.3); BLOOD UREA NITROGEN 21.5 mg/dL (7-17); CALCIUM 8.21 mg/dL (8.4-10.2); CARBON DIOXIDE 27.8 mmol/L (22-30.0); CHLORIDE 105.1 mmol/L (98-107); CREATININE 0.54 mg/dL (0.60-1.30); POTASSIUM 4.61 mmol/L (3.5-5.1); SODIUM 135.5 mmol/L (134.5-145); TOTAL PROTEIN 5.72 g/dL (6.3-8.2)
[2021-10-08 05:50] LABS: PROTHROMBIN TIME 21.5 SEC (9.3-11.0)
[2021-10-08] MEDS: PROTONIX PO SCH ×2 (05:54→16:20)
[2021-10-08] MEDS: NYSTATIN ORAL SUSP PO SCH ×4 (05:54→20:29)
[2021-10-08] MEDS: CARAFATE PO SCH ×4 (05:54→20:29)
[2021-10-08] MEDS: HUMULIN R SUBCUT PRN ×4 (05:55→20:30)
[2021-10-08] MEDS: LANTUS SUBCUT SCH (08:37)
[2021-10-08] MEDS: LANOXIN PO SCH (08:39)
[2021-10-08] MEDS: DIFLUCAN PO SCH (08:39)
[2021-10-08] MEDS: SYMBICORT 160-4.5 MCG INHALER IH SCH ×2 (08:39→20:29)
[2021-10-08] MEDS: CALAN SR PO SCH ×2 (08:40→20:30)
[2021-10-08] MEDS: MERREM 1 GM/50 ML NACL 1 GM/50 ML BAG IV SCH ×2 (08:40→20:30)
[2021-10-08] MEDS ORDERED: MEGACE PO SCH (09:00)
[2021-10-08] MEDS ORDERED: LEXAPRO PO SCH (09:00)
[2021-10-08] MEDS: SOLU-CORTEF 100 MG IVP SCH (09:26)
[2021-10-08] MEDS: NORCO 5-325 PO PRN ×2 (09:37→19:53)
[2021-10-08] MEDS ORDERED: LEXAPRO PO ONE (10:20)
--- NOTE | 2021-10-08 10:59 | PCM.PROG ---
Attending Provider: ATTENDING PROVIDER: Dr. Melania CHA This patient is seen with Lashawn Austin, Nurse Practitioner. DATE OF SERVICE: 10/08/21 SUBJECTIVE: This 86 year old /WHITE F was hospitalized 10/07/21. The patient is weak and tired. Did not eat well this morning. Urine culture is already showing preliminary gram negative bacteria. REVIEW OF SYSTEMS: CONSTITUTIONAL: No night sweats. No fatigue, malaise, lethargy. No fever or chills. Weakness. HEENT: Eyes: No visual changes. No eye pain. No eye discharge. ENT: No runny nose. No epistaxis. No sinus pain. No odynophagia. No congestion. RESPIRATORY: No cough, no congestion. No hemoptysis. Shortness of breath. CARDIOVASCULAR: No angina symptoms. No CHF symptoms. No atypical chest pain for CAD. No palpitations. No orthopnea.. GASTROINTESTINAL: No abdominal pain. No nausea or vomiting. No diarrhea or con stipation. No hematemesis. No hematochezia. GENITOURINARY: No urgency. No frequency. No dysuria. No hematuria. No obstructive symptoms. No discharge. No pain. No significant abnormal bleeding. MUSCULOSKELETAL: No musculoskeletal pain; no joint swelling. NEUROLOGICAL: Awake, alert, oriented to time, place and person. No headache. No neck pain. No syncope. No seizures. No dizziness. PSYCHIATRIC: Not anxious. No depression. No suicidal thoughts. No homicidal thoughts. SKIN: No rash. No lesions. No wounds. ENDOCRINE: No unexplained weight loss. No weight gain. HEMATOLOGIC/LYMPHATIC: No anemia. No purpura. No petechiae. No prolonged or excessive bleeding. No palpable lymph nodes. PHYSICAL EXAMINATION: GENERAL: The patient is awake, alert and oriented, sitting in bed in no distress. VITAL SIGNS: Temperature 98.0 F, Pulse 93, Respiratory Rate 18, BP 117/50, Pulse Ox 99% HEENT: Head normocephalic, atraumatic. Eyes: Extraocular muscles are intact. Pupils are equal, round and reactive to light and accommodation. Ears: No lesions. Nose appeared normal. Throat: No exudate or erythema. NECK: Supple. No JVD, no carotid bruit. No lymphadenopathy or thyromegaly. LUNGS: Diminished breath sounds. Bilaterally wheezing. Clear to auscultation. Percussion note normal. Chest symmetrical. HEART: S1, S2, no S3. No murmurs. No cyanosis or clubbing. No ascites. Pulses: Dorsalis pedis and posterior tibial pulses +1 to +2 both sides. ABDOMEN: Soft. Non-tender. Bowel sounds active. No CVA tenderness. No mass felt. EXTREMITIES: No edema. Full range of motion of all extremities, equal. NEUROLOGIC: No focal deficit. Cranial nerves II through XII are grossly intact. No headache. No double vision. SKIN: Not dry. Intact. Turgor-normal. LYMPHATIC: No palpable lymph nodes/no lymphedema. MUSCULOSKELETAL: Normal joints with no swelling. Muscle tone is normal. LAB REVIEW: 10/08/21 05:00 10/08/21 05:00 10/08/21 05:00: Sodium 135.5, Potassium 4.61, Chloride 105.1, Carbon Dioxide 27.8, Anion Gap 7.21, BUN 21.5 H, Creatinine 0.54 L, Estimated GFR (MDRD) 107.00, BUN/Creatinine Ratio 39.81, Glucose 194.0 H D, Calcium 8.21 L, Total Bilirubin 0.23, AST 24.2, ALT 21.0, Alkaline Phosphatase 69.2, Total Protein 5.72 L, Albumin 3.05 L, Globulin 2.67, Albumin/Globulin Ratio 1.14 10/08/21 05:00: PT 21.5 H, INR 2.15 10/08/21 05:00: WBC 8.38, RBC 3.43 L, Hgb 9.7 L, Hct 30.7 L, MCV 89.5, MCH 28.3, MCHC 31.6 L, RDW Coeff of [place] 14.2, Plt Count 272, Immature Gran % (Auto) 1.8, Neut % (Auto) 83.1 H, Lymph % (Auto) 11.2, [place] % (Auto) 3.8, Eos % (Auto) 0.0, Baso % (Auto) 0.1, Neut # (Auto) 7.0 H, Lymph # (Auto) 0.9, [place] # (Auto) 0.3 L, Eos # (Auto) 0.0, Baso # (Auto) 0.0, Immature Gran # (Auto) 0.2 10/07/21 16:58: Urine Color Yellow, Urine Clarity Cloudy, Urine pH 6.0, Ur Specific [place] 1.020, Urine Protein 1+ H, Urine Glucose (UA) Negative, Urine Ketones Negative, Urine Blood Trace-intact H, Urine Nitrite Positive H, Urine Bilirubin Negative, Urine Urobilinogen 0.2, Ur Leukocyte Esterase Trace H, Urine Microscopic WBC 5-10, Ur Squamous Epith Cells 2-5, Urine Bacteria 4+ 10/07/21 13:33: PT 19.8 H, INR 1.96 10/07/21 13:33: Sodium 134.6, Potassium 4.64, Chloride 100.4, Carbon Dioxide 26.1, Anion Gap 12.74, BUN 27.8 H, Creatinine 0.83, Estimated GFR (MDRD) 65.00, BUN/Creatinine Ratio 33.49, Glucose 270.6 H, Calcium 8.98, Total Bilirubin 0.34, AST 28.0, ALT 24.3, Alkaline Phosphatase 74.0, Total Protein 6.36, Albumin 3.53, Globulin 2.83, Albumin/Globulin Ratio 1.24 10/07/21 13:33: WBC 12.45 H, RBC 3.74 L, Hgb 10.5 L, Hct 32.8 L, MCV 87.7, MCH 28.1, MCHC 32.0, RDW Coeff of [place] 14.0, Plt Count 296, Immature Gran % (Auto) 1.0, Neut % (Auto) 87.1 H, Lymph % (Auto) 6.2 L, [place] % (Auto) 5.5, Eos % (Auto) 0.0, Baso % (Auto) 0.2, Neut # (Auto) 10.9 H, Lymph # (Auto) 0.8, [place] # (Auto) 0.7, Eos # (Auto) 0.0, Baso # (Auto) 0.0, Immature Gran # (Auto) 0.1 10/07/21 13:16: Puncture Site Rbrach, Base Excess 5.7 H, O2 Saturation 95.2, ABG pH 7.49 H, ABG pCO2 38.0, ABG pO2 70.0 L, ABG HCO3 29.0 H, ABG Total CO2 30.2 H, Tonio Test +, Hemoglobin 0.5, Oxyhemoglobin 90.8 L, Carboxyhemoglobin 6.0 H, Total Hemoglobin 10.9 L, O2 Delivery Device Ra, FiO2 % 21.0 10/07/21 11:36: Adenovirus (PCR) Not detected, B. pertussis DNA (PCR) Not detected, B.parapertussis DNA PCR Not detected, C. pneumoniae DNA (PCR) Not detected, Coronavirus OC43 (PCR) Not detected, Coronavirus HKU1 (PCR) Not detected, Coronavirus 229E (PCR) Not detected, Coronavirus NL63 (PCR) Not detected, Human Metapneumovir PCR Not detected, Influenza Type A (PCR) Not detected, Influenza B (RT-PCR) Not detected, M. pneumoniae (PCR) Not detected, Parainfluenza 1 (PCR) Not detected, Parainfluenza 2 (PCR) Not detected, Parainfluenza 3 (PCR) Not detected, Parainfluenza 4 (PCR) Not detected, RSV (PCR) Not detected, Entero/Rhino (PCR) Not detected, SARS-CoV-2 (PCR) Not detected ASSESSMENT: Please see below. 1. UTI, culture pending 2. Generalized weakness 3. Chronic anemia 4. Depression 5. Atrial fibrillation 6. Acute COPD exacerbation PLAN: 1. Increase Solu-Cortef 125mg Q 8 hours 2. Unable to do Upper GI due to Equipment Malfunction 3. Will give oral antifungals and monitor improvement 4. Digoxin level 5. One more liter of IV fluids Plan and coordination of the patient's care discussed in the presence of Ceramic Capacitor Processor and nurse. SCRIBED BY: ISH MONROY Application Analyst scribed while in presence of service performed by Dr. Boyce/Lashawn Austin APRN on 10/08/21 ([id number])
--- NOTE | 2021-10-08 12:53 | HP ---
DATE OF SERVICE: 10/07/2021 REASON FOR HOSPITALIZATION/HISTORY OF PRESENT ILLNESS: The patient has shortness of breath, difficulty swallowing, sore throat on right side and foul odor in urine. She is so so weak she can't walk. PAST MEDICAL HISTORY: COPD Hypertension Diabetes Mellitus type II Chronic bronchitis Anemia Atrial fibrillation Smoking Left lung cancer Pulmonary nodule left PAD CAD CABG PAST SURGICAL HISTORY: CABGs Hysterectomy Colonoscopy 05/21 Dr. Maloney REVIEW OF SYSTEMS: CONSTITUTIONAL: No fever, Fatigue. HEENT: No sinus drainage, Sore throat. RESPIRATORY: Cough, no congestion. CARDIOVASCULAR: No atypical chest pain for coronary artery disease. No angina, CHF symptoms. Palpitations and shortness of breath. GASTROINTESTINAL: No melena or abdominal pain. No GERD. GENITOURINARY: No hematuria, no prostatism, no polyuria. HOT DOG VENDER: No blackout, no dizziness, no headache, no double vision. GAIT: Wheelchair. MUSCULOSKELETAL: Osteoarthritis pain, no joint swelling. ENDOCRINE: No weight loss, no weight gain. SKIN: Not dry, no rash. PSYCHIATRIC: Not anxious, no depression, no suicidal thoughts, no homicidal thoughts. SOCIAL HISTORY: Marital Status: . Alcohol Usage: No. Tobacco Usage: Yes. FAMILY HISTORY: Father Mother Brother 4 Sister 4 MEDICATIONS: Xanax 0.25mg HS Digoxin 125mg PO daily Lexapro 10mg daily Gabapentin 300mg BID Insulin PRN Lantus 12 units daily Prednisone 5mg Megestrol 40daily Simvastatin 40mg daily Verapamil 180mg BID Coumadin 3mg PO daily Rowena-Colace DUO NEBS BID Macrobid 50mg daily [place] 5/325mg BID ALLERGIES: Tricor Keflex -sick-02/06/21 PHYSICAL EXAMINATION: V/S: GENERAL APPEARANCE: Oriented times three. HEENT:Pale. Dry mucous membrane NECK: No JVP, no bruits. RESPIRATORY: Decreased breath sounds. CARDIOVASCULAR: S1, S2, no S3, irregular. . No cyanosis, clubbing. No ascites. GI/ABDOMEN: No tenderness. Bowel sounds are active. EXTREMITIES: edema, pulses +1, equal. HOT DOG VENDER: Deep tendon reflexes, sensory, motor and gait all normal. RECTAL: Dr. Maloney /PELVIC: The patient refused all ASSESSMENT: 1. Shortness of breath 2. Dehydration 3. COPD 4. Leg edema 5. Emphysematous cystitis 6. Recurrent UTI-ESBL 7. History of compression fracture 8. Atrial fibrillation-On Coumadin 9. Diabetes Mellitus type II- A1c 8.1 10.Right upper lung nodule 11.Left lower lobe nodule- lung cancer on Chemo and radiation Bon 12. Non-compliance medications, diet and lifestyle 13. Chronic bronchitis 14. Leg edema 15. Right knee osteoarthritis 16. Anxiety 17. Anemia 18. PAD 19. CAD 20. CABG 21. Osteoporosis 22. Smoker 23. Neuropathy PLAN: 1. Respiratory panel in drive thru 2. Routine telemetry orders 3. No cardiac markers 4. CBC, CMP and INR now and daily 5. U/A with culture 6. Chest x-ray 7. Normal saline IV at 75cc an hour 8. Rocephin 1 gram IV daily 9. Solu-Cortef 100mg IV Q 12 hours 10.Protonix 40mg BID PO 11.Carafate 1gram QID 12.Diflucan 150mg PO daily times 7 days 13.Sputum culture 14.Regular diet 15.Dr. Boyce sliding scale 16.O2 at 1-2 liters 17.ABG on room air 18.Upper GI in AM TIME SPENT: More than 70 minutes. MTDD
[2021-10-08] MEDS: SOLU-CORTEF 250 MG IVP SCH ×2 (13:53→22:00)
--- NOTE | 2021-10-08 15:28 | RS.OTINEVL ---
Subjective - Patient information Date of Evaluation: 10/08/21 Date of Arrival on Unit: 10/07/21 Admitted From:: Home Diagnosis: SOB, dehydration, PRECAUTIONS: At risk for falls Usual Living Arrangement: With Others Living Arrangement Comments: lives with elderly spouse and teenage granddaugther, DAUGHTER IS THERE FREQUENTLY Home Environment: House, Stairs (few) Medical History: Hypertension, COPD, Diabetes, Arthritis, Cancer (lung) Medical History Comments:: anemia, anxiety, depression, PAD, CAD, osteoporosis, neuropathy, comp. fx T12, LATEX ALLERGY?: No Surgical History: Hysterectomy, CABG Surgical History Comments:: CABG x 3, Medications: see chart Subjective Information/ Patient Comments:: "I trust you to do whatever I need to get better." - Level of function Prior to this admission, the patient could do the following:: Partially Dependent Ambulation Abilities prior to this admission: Pt was receiving help from her daughter when she was living at home. Pt was walking with RW CGA. Pt has a person come in to clean her house 2x wk. Current Level of Function: Partially Dependent Comments: Pt was rattling with breathing. Current Equipment Used at Home: OXYGEN, NEBULIZER, WHEELCHAIR, WALKER, BEDSIDE COMMODE Interventions - Objective Patient Orientation: Person, Place, Situation Current Interventions: IV's, Oxygen, Telemetry Observation: Pt is weak. Pt did complete personal hygiene after toileting. Pt is Independent with pulling up her pants. Pt is CGA with sit to stand from EOB. Pt is CGA with functional mobility. Pt is able to wash her hand at the sink Independently. Interventions - ROM Right Upper Extremity AROM: WFL's Left Upper Extremity AROM: WFL's - Strength Right Upper Extremity Strength: Mild Weakness Left Upper Extremity Strength: Mild Weakness - Sensation Right Upper Extremity Sensation: Intact/Normal Left Upper Extremity Sensation: Intact/Normal Balance - Sitting Balance Static Sitting Balance: Fair Dynamic Sitting Balance: Fair - Standing Balance Static Standing Balance: Fair Dynamic Standing Balance: Fair (Pt requires rest breaks during the walk.) ADL Skills - Self Feeding Self Feeding: Independent - Bathing Bathing UE: Min Assist Bathing LE: Max Assist Bathing Set-up: Bedside - Dressing Dressing UE: Min Assist Dressing LE: Min Assist - Toilet Management Toilet Hygiene: Independent Toilet Clothing Management: Independent Functional Mobility - Bed Mobility Rolling R/L: Min Assist Scooting: Min Assist Supine to Sit: Min Assist, 2 person assist Sit to Supine: Min Assist - Transfers Sit to Stand: CGA Stand to Sit: CGA Stand Pivot Transfers: CGA - Ambulation Weight Bearing Status: FWB Assistive Device Used: Rolling Walker Assistance needed with Ambulation: CGA, 1 person assist - Safety Awareness Safety Awareness: Good JENNI INDEX SCORE: . Additional Treatment Performed - Time with patient Length of Evaluation: 20 Total treatment time: 21 Activities Do you enjoy playing games?: Yes Would you be interested in leaving your room for activities?: Yes Would you enjoy group activities?: Yes Patient Interests:: Watching Television Patient Education Patient Education: Education of diagnosis, Education of Plan of Care Teaching Recipient: Patient Teaching Methods: Discussion, Demonstration Assessment Problem List:: Decreased level of function, Requires training/education, Decr eased safety/Risk of falls, Weakness Rehab Potential: Good Further Therapy Indicated?: Yes Evaluation Complexity: HISTORY: Medium, EXAM OF BODY SYSTEMS: Medium, CLINICAL DECISION MAKING: Medium Patient's Goal(s): To keep strength in her legs so she can walk. Short Term Goals - Goals GOAL 1: Increase strength to 4/5 Goal to be met by: 10/13/21 GOAL 2: Increase act tolerance to 15 mins for self cares Goal to be met by: 10/13/21 GOAL 3: Increase dyn stand balance to fair- Goal to be met by: 10/13/21 GOAL 4: Pt to be able to take the cap off of the toothpaste with RUE. Goal to be met by: 10/13/21 [facility] Goals GOAL 1: Pt to increase BUE strength to 4+/5. Goal to be met by: 10/17/21 GOAL 2: Pt to increase activity tolerance to 20 minutes. Goal to be met by: 10/17/21 GOAL 3: Pt to increase Indep. of ADLS. Goal to be met by: 10/17/21 Plan Plan of Care: Therapeutic EX, Therapeutic Activity, Self-Care/Home Management Frequency of Treatment: 1-2 X day, as tolerated Duration of Treatment: 2 Weeks Anticipated Discharge Destination: Home Treatment Diagnosis (ICD 10 Codes): R53.1 Weakness, z74.1 Need for assistance with self care. Has the Physician been added for Co-signature?: Yes
--- NOTE | 2021-10-08 16:15 | RS.PTINEVL ---
Subjective - Patient information Date of Evaluation: 10/08/21 Date of Arrival on Unit: 10/07/21 Admitted From:: Home Diagnosis: exacerbation COPD, UTI Usual Living Arrangement: With Others Living Arrangement Comments: lives with and granddtr, daughter is very supportive Medical History: Hypertension, COPD, Diabetes, Arthritis, Cancer (lung) Medical History Comments:: afib, CAD, depression, dysphagia, L12 compress fx, neuropathy, anxiety disorder Surgical History: Hysterectomy, CABG (x3) Medications: see chart Subjective Information/ Patient Comments:: pt states "My legs are so weak, I have to get stronger. I want to do whatever it takes to get stronger." - Level of function Prior to this admission, the patient could do the following:: Partially Dependent Ambulation Current Level of Function: Partially Dependent Current Equipment Used at Home: OXYGEN, NEBULIZER, WHEELCHAIR, WALKER, BEDSIDE COMMODE Pain Assessement - Location neck pain Description: Aching Pain Behavior: Rubbing Site, Facial Grimacing Pain Aggravating Factors: Changing Position, Exercise/Activity Interventions - Objective Patient Orientation: Person, Place, Time, Situation Current Interventions: IV's, Oxygen (2 liters), Telemetry Range of Motion - ROM Right Upper Extremity AROM: WFL's Left Upper Extremity AROM: WFL's Right Lower Extremity AROM: WFL's Left Lower Extremity AROM: WFL's Muscle Strength - Muscle Strength Right Upper Extremity Strength: Mild Weakness (grossly 4-/5) Left Upper Extremity Strength: Mild Weakness (4-/5) Right Lower Extremity Strength: Mild Weakness (hip flex 3+/5, knee flex/ext 4- /5, ankle DF/PF 4-/5) Left Lower Extremity Strength: Mild Weakness (hip flex 3+/5, knee flex/ext 4-/5, ankle DF/PF 4-/5) Sensation - Sensation Right Upper Extremity Sensation: Intact/Normal Left Upper Extremity Sensation: Intact/Normal Right Lower Extremity Sensation: Intact/Normal Left Lower Extremity Sensation: Intact/Normal Palpation Palpation Findings: None/Normal Balance - Sitting Balance and Reactions Static Sitting Balance: Good Dynamic Sitting Balance: Fair Sitting Equilibrium Reactions: Delayed Left, Delayed Right Sitting Protective Reactions: Delayed Left, Delayed Right - Standing Balance and Reactions Static Standing Balance: Poor Dynamic Standing Balance: Poor Standing Equilibrium Reactions: Delayed Left, Delayed Right Standing Protective Reactions: Delayed Left, Delayed Right Functional Mobility - Bed Mobility Rolling R/L: Set Up Only Scooting: Min Assist, Mod Assist Supine to Sit: Min Assist Sit to Supine: CGA - Transfers Sit to Stand: Min Assist, 1 person assist Stand to Sit: Min Assist, 1 person assist - Safety Awareness Safety Awareness: Fair JENNI INDEX SCORE: n/a Ambulation - Ambulation Assistive Device Used: Rollator Orthotic/Prosthetic Device: No Distance: 24ft x 2 Assistance needed with Ambulation: CGA, Min Assist, 1 person assist Gait Deviations: Forward posture, Short stride, Deviates from path Factors Affecting Ambulation: Decreased Balance, Breathing/O2 Saturation, Weakness, Decreased Safety, Limited Endurance Treatment time - Time with patient Length of Evaluation: 19 Total treatment time: 28 Patient Education - Education Patient Education: Activity Modification, Education of Plan of Care Teaching Recipient: Patient, Family Teaching Methods: Discussion, Demonstration Assessment - Assessment Problem List:: Decreased level of function, Requires training/education, Decreased safety/Risk of falls, Weakness Rehab Potential: Fair Further Therapy Indicated?: Yes Candidate for Swing Bed for Therapy Services?: Feel pt may not be a candidate for swing bed due to respiratory status may limit progress with therapy. Evaluation Complexity: HISTORY: Medium, EXAM OF BODY SYSTEMS: Medium, CLINICAL PRESENTATION: Medium, CLINICAL DECISION MAKING: Medium Patient's Goal(s): get my legs stronger Short Term Goals GOAL #1: Transfer sup to/from sit CGA Goal to be met by: 10/10/21 GOAL #2: Sit to/from stand CGA Goal to be met by: 10/10/21 GOAL #3: pt amb 75ft with rwx with O2 CGA to SBA no seated rest Goal to be met by: 10/10/21 GOAL #4: BLE strength 4- to 4/5 Goal to be met by: 10/10/21 GOAL #5: Improve dyn stand balance fair- Goal to be met by: 10/10/21 Security Tech Goals GOAL #1: sup to/from sit independently, sit to/from stand SBA Goal to be met by: 10/12/21 GOAL #2: amb functional household distances with rwx SBA Goal to be met by: 10/12/21 GOAL #3: Improve dyn stand balance fair Goal to be met by: 10/12/21 Plan Plan of Care: Therapeutic EX, Therapeutic Activity Other:: gait training Frequency of Treatment: 1-2 X day, as tolerated Duration of Treatment: 5 days Anticipated Discharge Destination: Home Treatment Diagnosis (ICD 10 Codes): falls R 29.6. muscle weakness M62.81. balance impaired R 26.81. difficulty walking R 26. 2 Has the Physician been added for Co-signature?: Yes
[2021-10-08] MEDS: COUMADIN PO SCH (16:20)
[2021-10-08] MEDS: XANAX PO SCH (20:30)
[2021-10-08] MEDS: ZOCOR PO SCH (20:30)
[2021-10-09] MEDS: DUONEB NEB SCH ×3 (04:55→20:37)
[2021-10-09 05:25] LABS: BASOPHILS % (AUTO) 0.1 % (0.0-3.0); HEMATOCRIT 28.7 % (37.0-47.0); HEMOGLOBIN 8.9 g/dl (12.0-16.0); IMMATURE GRANULOCYTE # (AUTO) 0.1 (0.0-1.0); IMMATURE GRANULOCYTE % (AUTO) 1.3 % (0.0-5.0); LYMPHOCYTES % (AUTO) 10.4 (10.0-50.0); MEAN CORPUSCULAR HEMOGLOBIN 28.3 pg (27.0-31.0); MEAN CORPUSCULAR VOLUME 91.1 fl (81.0-99.0); MONOCYTES # (AUTO) 0.5 K/uL (0.4-2.0); MONOCYTES % (AUTO) 5.2 (0-10); NEUTROPHILS # (AUTO) 7.9 K/ul (2.0-6.9); PLATELET COUNT 251 10^3/uL (140-440); RDW COEFFICIENT OF VARIATION 14.3 % (11.6-14.8); RED BLOOD COUNT 3.15 10^6/ul (4.20-5.40); WHITE BLOOD COUNT 9.51 K/ul (4.6-10.2)
[2021-10-09 05:40] LABS: ALANINE AMINOTRANSFERASE 22.7 U/L (0-35); ALBUMIN 3.06 g/dL (3.5-5.0); ALKALINE PHOSPHATASE 66.8 U/L (53-141); ASPARTATE AMINO TRANSFERASE 25.7 U/L (14-36); BILIRUBIN,TOTAL 0.14 mg/dL (0.2-1.3); BLOOD UREA NITROGEN 21.8 mg/dL (7-17); CALCIUM 8.12 mg/dL (8.4-10.2); CARBON DIOXIDE 25.8 mmol/L (22-30.0); CHLORIDE 107.5 mmol/L (98-107); CREATININE 0.48 mg/dL (0.60-1.30); GLUCOSE 191.2 mg/dL (74-106); POTASSIUM 3.83 mmol/L (3.5-5.1); SODIUM 136.9 mmol/L (134.5-145); TOTAL PROTEIN 5.61 g/dL (6.3-8.2)
[2021-10-09] MEDS: PROTONIX PO SCH ×2 (05:46→16:21)
[2021-10-09] MEDS: NYSTATIN ORAL SUSP PO SCH ×4 (05:46→20:47)
[2021-10-09] MEDS: CARAFATE PO SCH ×4 (05:46→20:47)
[2021-10-09] MEDS: SOLU-CORTEF 250 MG IVP SCH ×3 (06:00→21:42)
[2021-10-09 06:06] LABS: PROTHROMBIN TIME 37.9 SEC (9.3-11.0)
[2021-10-09] MEDS: HUMULIN R SUBCUT PRN ×4 (06:20→21:05)
[2021-10-09] MEDS: SODIUM CHLORIDE 1,000 ML IV SCH ×5 (06:36→08:59)
--- NOTE | 2021-10-09 08:23 | PCM.PROG ---
Attending Provider: ATTENDING PROVIDER: Dr. Melania CHA This patient is seen with Lashawn Austin, Nurse Practitioner. DATE OF SERVICE: 10/09/21 SUBJECTIVE: This 86 year old /WHITE F was hospitalized 10/07/21. More wheezing today. Low grade temperature last night and this morning. REVIEW OF SYSTEMS: CONSTITUTIONAL: No night sweats. No fatigue, malaise, lethargy. Fever. Weakness. HEENT: Eyes: No visual changes. No eye pain. No eye discharge. ENT: No runny nose. No epistaxis. No sinus pain. No odynophagia. No congestion. RESPIRATORY: Cough, no congestion. No hemoptysis. No shortness of breath. Wheezing. CARDIOVASCULAR: No angina symptoms. No CHF symptoms. No atypical chest pain for CAD. No palpitations. No orthopnea.. GASTROINTESTINAL: No abdominal pain. No nausea or vomiting. No diarrhea or constipation. No hematemesis. No hematochezia. GENITOURINARY: No urgency. No frequency. No dysuria. No hematuria. No obstructive symptoms. No discharge. No pain. No significant abnormal bleeding. MUSCULOSKELETAL: No musculoskeletal pain; no joint swelling. NEUROLOGICAL: Awake, alert, oriented to time, place and person. No headache. No neck pain. No syncope. No seizures. No dizziness. PSYCHIATRIC: Not anxious. No depression. No suicidal thoughts. No homicidal thoughts. SKIN: No rash. No lesions. No wounds. ENDOCRINE: No unexplained weight loss. No weight gain. HEMATOLOGIC/LYMPHATIC: No anemia. No purpura. No petechiae. No prolonged or excessive bleeding. No palpable lymph nodes. PHYSICAL EXAMINATION: GENERAL: The patient is awake, alert and oriented, lying in bed in no distress. VITAL SIGNS: Temperature 100 F, Pulse 77, Respiratory Rate 18, BP 140/60, Pulse Ox 100% HEENT: Head normocephalic, atraumatic. Eyes: Extraocular muscles are intact. Pupils are equal, round and reactive to light and accommodation. Ears: No lesions. Nose appeared normal. Throat: No exudate or erythema. NECK: Supple. No JVD, no carotid bruit. No lymphadenopathy or thyromegaly. LUNGS: Diminished breath sounds. Bilateral inspiratory and expiratory wheezing. Clear to auscultation. Percussion note normal. Chest symmetrical. HEART: S1, S2, no S3. No murmurs. No cyanosis or clubbing. No ascites. Pulses: Dorsalis pedis and posterior tibial pulses +1 to +2 both sides. ABDOMEN: Soft. Non-tender. Bowel sounds active. No CVA tenderness. No mass felt. EXTREMITIES: No edema. Full range of motion of all extremities, equal. NEUROLOGIC: No focal deficit. Cranial nerves II through XII are grossly intact. No headache. No double vision. SKIN: Not dry. Intact. Turgor-normal. LYMPHATIC: No palpable lymph nodes/no lymphedema. MUSCULOSKELETAL: Normal joints with no swelling. Muscle tone is normal. LAB REVIEW: 10/09/21 05:10 10/09/21 05:10 10/09/21 05:10: Sodium 136.9, Potassium 3.83, Chloride 107.5 H, Carbon Dioxide 25.8, Anion Gap 7.43, BUN 21.8 H, Creatinine 0.48 L, Estimated GFR (MDRD) 123.00, BUN/Creatinine Ratio 45.41, Glucose 191.2 H, Calcium 8.12 L, Total Bilir ubin 0.14 L, AST 25.7, ALT 22.7, Alkaline Phosphatase 66.8, Total Protein 5.61 L , Albumin 3.06 L, Globulin 2.55, Albumin/Globulin Ratio 1.20 10/09/21 05:10: PT 37.9 H D, INR 3.88 10/09/21 05:10: WBC 9.51, RBC 3.15 L, Hgb 8.9 L, Hct 28.7 L, MCV 91.1, MCH 28.3, MCHC 31.0 L, RDW Coeff of [place]eland 14.3, Plt Count 251, Immature Gran % (Auto) 1.3, Neut % (Auto) 83.0 H, Lymph % (Auto) 10.4, [place] % (Auto) 5.2, Eos % (Auto) 0.0, Baso % (Auto) 0.1, Neut # (Auto) 7.9 H, Lymph # (Auto) 1.0, [place] # (Auto) 0.5, Eos # (Auto) 0.0, Baso # (Auto) 0.0, Immature Gran # (Auto) 0.1 10/08/21 05:00: Digoxin 1.35 ASSESSMENT: Please see below. 1. Shortness of breath 2. Acute COPD exacerbation 3. UTI positive e-coli 4. Atrial fibrillation PLAN: 1. Discontinue IV fluids 2. Hold Coumadin 3. 40mg Lasix IV 4. If fever persists repeat COVID and blood cultures 5. Increase Megace BID Plan and coordination of the patient's care discussed in the presence of Sodium Methylate Operator and nurse. SCRIBED BY: Geoffrey GUADALUPE scribed while in presence of service performed by Dr. Boyce/Lashawn Austin APRN on 10/09/21 ([id number])
[2021-10-09] MEDS ORDERED: LASIX IVP ONE (09:00)
[2021-10-09] MEDS: LANTUS SUBCUT SCH (09:21)
[2021-10-09] MEDS: SYMBICORT 160-4.5 MCG INHALER IH SCH ×2 (09:21→21:06)
[2021-10-09] MEDS: CALAN SR PO SCH ×2 (09:22→20:47)
[2021-10-09] MEDS: MERREM 1 GM/50 ML NACL 1 GM/50 ML BAG IV SCH ×2 (09:22→20:47)
[2021-10-09] MEDS: LANOXIN PO SCH (09:22)
[2021-10-09] MEDS: LEXAPRO PO SCH (09:22)
[2021-10-09] MEDS: DIFLUCAN PO SCH (09:22)
[2021-10-09] MEDS: MEGACE PO SCH ×2 (09:23→20:47)
[2021-10-09] MEDS: NORCO 5-325 PO PRN ×2 (16:21→21:05)
[2021-10-09] MEDS: XANAX PO SCH (20:47)
[2021-10-09] MEDS: ZOCOR PO SCH (20:47)
[2021-10-10 04:27] LABS: BASOPHILS % (AUTO) 0.1 % (0.0-3.0); HEMATOCRIT 28.7 % (37.0-47.0); HEMOGLOBIN 8.9 g/dl (12.0-16.0); IMMATURE GRANULOCYTE # (AUTO) 0.1 (0.0-1.0); IMMATURE GRANULOCYTE % (AUTO) 0.7 % (0.0-5.0); LYMPHOCYTES # (AUTO) 0.6 K/uL (0.60-3.4); LYMPHOCYTES % (AUTO) 6.7 (10.0-50.0); MEAN CORPUSCULAR VOLUME 90.3 fl (81.0-99.0); MONOCYTES # (AUTO) 0.3 K/uL (0.4-2.0); MONOCYTES % (AUTO) 3.6 (0-10); NEUTROPHILS # (AUTO) 7.7 K/ul (2.0-6.9); NEUTROPHILS % (AUTO) 88.9 % (42.2-75.2); PLATELET COUNT 243 10^3/uL (140-440); RDW COEFFICIENT OF VARIATION 14.1 % (11.6-14.8); RED BLOOD COUNT 3.18 10^6/ul (4.20-5.40); WHITE BLOOD COUNT 8.63 K/ul (4.6-10.2)
[2021-10-10 04:44] LABS: ALANINE AMINOTRANSFERASE 26.9 U/L (0-35); ALBUMIN 3.04 g/dL (3.5-5.0); ALKALINE PHOSPHATASE 72.3 U/L (53-141); ASPARTATE AMINO TRANSFERASE 30.4 U/L (14-36); BILIRUBIN,TOTAL 0.2 mg/dL (0.2-1.3); BLOOD UREA NITROGEN 20.3 mg/dL (7-17); CALCIUM 8.21 mg/dL (8.4-10.2); CARBON DIOXIDE 30.1 mmol/L (22-30.0); CHLORIDE 105.2 mmol/L (98-107); CREATININE 0.58 mg/dL (0.60-1.30); GLUCOSE 219.1 mg/dL (74-106); POTASSIUM 3.66 mmol/L (3.5-5.1); SODIUM 137.9 mmol/L (134.5-145); TOTAL PROTEIN 5.6 g/dL (6.3-8.2)
[2021-10-10 04:51] LABS: PROTHROMBIN TIME 58.4 SEC (9.3-11.0)
[2021-10-10] MEDS: DUONEB NEB SCH ×3 (04:53→20:00)
[2021-10-10] MEDS: SOLU-CORTEF 250 MG IVP SCH ×3 (05:45→20:21)
[2021-10-10] MEDS: CARAFATE PO SCH ×4 (06:01→20:20)
[2021-10-10] MEDS: PROTONIX PO SCH ×2 (06:01→17:01)
[2021-10-10] MEDS: NYSTATIN ORAL SUSP PO SCH ×4 (06:01→20:20)
[2021-10-10] MEDS: HUMULIN R SUBCUT PRN ×3 (06:02→17:29)
--- NOTE | 2021-10-10 09:07 | PCM.PROG ---
Attending Provider: ATTENDING PROVIDER: Dr. Melania CHA This patient is seen with Lashawn Austin, Nurse Practitioner. DATE OF SERVICE: 10/10/21 SUBJECTIVE: This 86 year old /WHITE F was hospitalized 10/07/21. Had 3500 out yesterday. Shortness of breath seems to be improved. Still very weak. Did have low grade temperature last night. REVIEW OF SYSTEMS: CONSTITUTIONAL: No night sweats. No fatigue, malaise, lethargy. Fever. Weakness. HEENT: Eyes: No visual changes. No eye pain. No eye discharge. ENT: No runny nose. No epistaxis. No sinus pain. No odynophagia. No congestion. RESPIRATORY: Cough, no congestion. No hemoptysis. Shortness of breath. CARDIOVASCULAR: No angina symptoms. No CHF symptoms. No atypical chest pain for CAD. No palpitations. No orthopnea.. GASTROINTESTINAL: No abdominal pain. No nausea or vomiting. No diarrhea or constipation. No hematemesis. No hematochezia. GENITOURINARY: No urgency. No frequency. No dysuria. No hematuria. No obstruc tive symptoms. No discharge. No pain. No significant abnormal bleeding. MUSCULOSKELETAL: No musculoskeletal pain; no joint swelling. NEUROLOGICAL: Awake, alert, oriented to time, place and person. No headache. No neck pain. No syncope. No seizures. No dizziness. PSYCHIATRIC: Not anxious. No depression. No suicidal thoughts. No homicidal thoughts. SKIN: No rash. No lesions. No wounds. ENDOCRINE: No unexplained weight loss. No weight gain. HEMATOLOGIC/LYMPHATIC: No anemia. No purpura. No petechiae. No prolonged or excessive bleeding. No palpable lymph nodes. PHYSICAL EXAMINATION: GENERAL: The patient is awake, alert and oriented, lying in bed in no distress. VITAL SIGNS: Temperature 98.5 F, Pulse 79, Respiratory Rate 18, BP 135/54, Pulse Ox 99% HEENT: Head normocephalic, atraumatic. Eyes: Extraocular muscles are intact. Pupils are equal, round and reactive to light and accommodation. Ears: No lesions. Nose appeared normal. Throat: No exudate or erythema. NECK: Supple. No JVD, no carotid bruit. No lymphadenopathy or thyromegaly. LUNGS: Diminished breath sounds. Bilateral wheezing. Clear to auscultation. Percussion note normal. Chest symmetrical. HEART: S1, S2, no S3. No murmurs. No cyanosis or clubbing. No ascites. Pulses: Dorsalis pedis and posterior tibial pulses +1 to +2 both sides. ABDOMEN: Soft. Non-tender. Bowel sounds active. No CVA tenderness. No mass felt. EXTREMITIES: No edema. Full range of motion of all extremities, equal. NEUROLOGIC: No focal deficit. Cranial nerves II through XII are grossly intact. No headache. No double vision. SKIN: Not dry. Intact. Turgor-normal. LYMPHATIC: No palpable lymph nodes/no lymphedema. MUSCULOSKELETAL: Normal joints with no swelling. Muscle tone is normal. LAB REVIEW: 10/10/21 04:00 10/10/21 04:00 10/10/21 04:00: Sodium 137.9, Potassium 3.66, Chloride 105.2, Carbon Dioxide 30.1 H, Anion Gap 6.26, BUN 20.3 H, Creatinine 0.58 L, Estimated GFR (MDRD) 99.00, BUN/Creatinine Ratio 35.00, Glucose 219.1 H D, Calcium 8.21 L, Total Bilirubin 0.20, AST 30.4, ALT 26.9, Alkaline Phosphatase 72.3, Total Protein 5.60 L, Albumin 3.04 L, Globulin 2.56, Albumin/Globulin Ratio 1.18 10/10/21 04:00: PT 58.4 H D, INR 6.13 H* D 10/10/21 04:00: WBC 8.63, RBC 3.18 L, Hgb 8.9 L, Hct 28.7 L, MCV 90.3, MCH 28.0, MCHC 31.0 L, RDW Coeff of [place] 14.1, Plt Count 243, Immature Gran % (Auto) 0.7, Neut % (Auto) 88.9 H, Lymph % (Auto) 6.7 L, [place] % (Auto) 3.6, Eos % (Auto) 0.0, Baso % (Auto) 0.1, Neut # (Auto) 7.7 H, Lymph # (Auto) 0.6, [place] # (Auto) 0.3 L, Eos # (Auto) 0.0, Baso # (Auto) 0.0, Immature Gran # (Auto) 0.1 10/09/21 20:40: Glucose 339.5 H D ASSESSMENT: Please see below. 1. Acute COPD exacerbation 2. E-coli positive sputum 3. E-coli UTI 4. Atrial fibrillation 5. Diabetes Mellitus type II PLAN: 1. Rocephin 1 gram IV daily 2. Blood cultures times two 3. Discontinue Merrem 4. Repeat respiratory panel 5. Continue to hold Coumadin Plan and coordination of the patient's care discussed in the presence of Center Receptionist and nurse. SCRIBED BY: Geoffrey GUADALUPE scribed while in presence of service performed by Dr. Boyce/Lashawn Austin APRN on 10/10/21 ([id number])
[2021-10-10] MEDS: LANOXIN PO SCH (10:05)
[2021-10-10] MEDS: ROCEPHIN 1 GM/50 ML D5W 1 GM/50 ML BAG IV SCH (10:05)
[2021-10-10] MEDS: MEGACE PO SCH ×2 (10:06→20:19)
[2021-10-10] MEDS: NORCO 5-325 PO PRN ×2 (10:06→15:19)
[2021-10-10] MEDS: DIFLUCAN PO SCH (10:06)
[2021-10-10] MEDS: CALAN SR PO SCH ×2 (10:06→20:19)
[2021-10-10] MEDS: LEXAPRO PO SCH (10:06)
[2021-10-10] MEDS: LANTUS SUBCUT SCH (10:07)
[2021-10-10] MEDS: SYMBICORT 160-4.5 MCG INHALER IH SCH ×2 (10:07→20:31)
[2021-10-10] MEDS: MERREM 1 GM/50 ML NACL 1 GM/50 ML BAG IV SCH (11:18)
[2021-10-10 11:45] LABS: BORDETELLA PARAPERTUSSIS (PCR) NOT DETECTED (NOT DETECT); BORDETELLA PERTUSSIS (PCR) NOT DETECTED (NOT DETECT); CHLAMYDIA PNEUMONIAE (PCR) NOT DETECTED (NOT DETECT); CORONAVIRUS 229E (PCR) NOT DETECTED (NOT DETECT); CORONAVIRUS HKU1 (PCR) NOT DETECTED (NOT DETECT); CORONAVIRUS NL63 (PCR) NOT DETECTED (NOT DETECT); CORONAVIRUS OC43 (PCR) NOT DETECTED (NOT DETECT); HUMAN METAPNEUMOVIRUS (PCR) NOT DETECTED (NOT DETECT); HUMAN RHINOVIRUS/ENTEROV (PCR) NOT DETECTED (NOT DETECT); INFLUENZA B (PCR) NOT DETECTED (NOT DETECT); MYCOPLASMA PNEUMONIAE (PCR) NOT DETECTED (NOT DETECT); PARAINFLUENZA VIRUS 1 (PCR) NOT DETECTED (NOT DETECT); PARAINFLUENZA VIRUS 2 (PCR) NOT DETECTED (NOT DETECT); PARAINFLUENZA VIRUS 3 (PCR) NOT DETECTED (NOT DETECT); PARAINFLUENZA VIRUS 4 (PCR) NOT DETECTED (NOT DETECT); RESPIRATORY SYNCYTIAL V (PCR) NOT DETECTED (NOT DETECT); SARS_COV_2 (PCR) NOT DETECTED (NOT DETECT)
[2021-10-10 12:46] LABS: ADENOVIRUS (PCR) NOT DETECTED (NOT DETECT)
[2021-10-10] MEDS: DOXY-100 100 MG in SODIUM CHLORIDE 100ML 100 ML IV SCH ×2 (17:01→21:00)
[2021-10-10] MEDS: ZOCOR PO SCH (20:19)
[2021-10-10] MEDS: XANAX PO SCH (20:26)
[2021-10-11] MEDS: DUONEB NEB SCH ×3 (04:50→20:30)
[2021-10-11 05:03] LABS: BASOPHILS % (AUTO) 0.1 % (0.0-3.0); HEMATOCRIT 28.4 % (37.0-47.0); HEMOGLOBIN 8.9 g/dl (12.0-16.0); IMMATURE GRANULOCYTE # (AUTO) 0.1 (0.0-1.0); IMMATURE GRANULOCYTE % (AUTO) 1.1 % (0.0-5.0); LYMPHOCYTES # (AUTO) 0.6 K/uL (0.60-3.4); LYMPHOCYTES % (AUTO) 6.6 (10.0-50.0); MEAN CORPUSCULAR HEMOGLOBIN 27.9 pg (27.0-31.0); MEAN CORPUSCULAR HGB CONC 31.3 (31.8-35.4); MONOCYTES # (AUTO) 0.6 K/uL (0.4-2.0); MONOCYTES % (AUTO) 6.2 (0-10); NEUTROPHILS # (AUTO) 8.2 K/ul (2.0-6.9); PLATELET COUNT 245 10^3/uL (140-440); RDW COEFFICIENT OF VARIATION 14.1 % (11.6-14.8); RED BLOOD COUNT 3.19 10^6/ul (4.20-5.40); WHITE BLOOD COUNT 9.51 K/ul (4.6-10.2)
[2021-10-11 05:15] LABS: ALANINE AMINOTRANSFERASE 32.7 U/L (0-35); ALBUMIN 2.98 g/dL (3.5-5.0); ALKALINE PHOSPHATASE 75.7 U/L (53-141); ASPARTATE AMINO TRANSFERASE 37.9 U/L (14-36); BILIRUBIN,TOTAL 0.2 mg/dL (0.2-1.3); BLOOD UREA NITROGEN 26.1 mg/dL (7-17); CALCIUM 8.28 mg/dL (8.4-10.2); CARBON DIOXIDE 31.9 mmol/L (22-30.0); CHLORIDE 103.3 mmol/L (98-107); CREATININE 0.52 mg/dL (0.60-1.30); GLUCOSE 233.7 mg/dL (74-106); POTASSIUM 3.43 mmol/L (3.5-5.1); SODIUM 136.9 mmol/L (134.5-145); TOTAL PROTEIN 5.5 g/dL (6.3-8.2)
[2021-10-11 05:24] LABS: PROTHROMBIN TIME 41.7 SEC (9.3-11.0)
[2021-10-11] MEDS: SOLU-CORTEF 250 MG IVP SCH ×4 (05:30→21:00)
[2021-10-11] MEDS: NYSTATIN ORAL SUSP PO SCH ×4 (05:31→20:08)
[2021-10-11] MEDS: CARAFATE PO SCH ×4 (05:31→20:07)
[2021-10-11] MEDS: PROTONIX PO SCH ×2 (05:32→17:11)
[2021-10-11] MEDS: HUMULIN R SUBCUT PRN ×4 (06:38→20:21)
[2021-10-11] MEDS: NORCO 5-325 PO PRN ×2 (07:03→20:08)
[2021-10-11] MEDS: LEXAPRO PO SCH (09:32)
[2021-10-11] MEDS: CALAN SR PO SCH ×2 (09:32→20:06)
[2021-10-11] MEDS: MEGACE PO SCH ×2 (09:32→20:09)
[2021-10-11] MEDS: DIFLUCAN PO SCH (09:32)
[2021-10-11] MEDS: LANOXIN PO SCH (09:32)
[2021-10-11] MEDS: LANTUS SUBCUT SCH (09:35)
[2021-10-11] MEDS: DOXY-100 100 MG in SODIUM CHLORIDE 100ML 100 ML IV SCH ×2 (09:35→20:36)
[2021-10-11] MEDS ORDERED: LASIX IVP STA (09:46)
[2021-10-11] MEDS: SYMBICORT 160-4.5 MCG INHALER IH SCH ×2 (09:49→20:13)
[2021-10-11] MEDS: K-DUR PO SCH ×2 (10:50→17:11)
[2021-10-11] MEDS: ROCEPHIN 1 GM/50 ML D5W 1 GM/50 ML BAG IV SCH (12:33)
[2021-10-11] MEDS: ZOCOR PO SCH (20:06)
[2021-10-11] MEDS: COLACE PO PRN (20:07)
[2021-10-11] MEDS: XANAX PO SCH (20:09)
[2021-10-12] MEDS: DUONEB NEB SCH ×3 (04:45→20:05)
[2021-10-12 05:26] LABS: BASOPHILS % (AUTO) 0.1 % (0.0-3.0); HEMATOCRIT 28.8 % (37.0-47.0); HEMOGLOBIN 9.4 g/dl (12.0-16.0); IMMATURE GRANULOCYTE # (AUTO) 0.1 (0.0-1.0); IMMATURE GRANULOCYTE % (AUTO) 1.2 % (0.0-5.0); LYMPHOCYTES # (AUTO) 0.7 K/uL (0.60-3.4); LYMPHOCYTES % (AUTO) 7.7 (10.0-50.0); MEAN CORPUSCULAR HGB CONC 32.6 (31.8-35.4); MEAN CORPUSCULAR VOLUME 88.9 fl (81.0-99.0); MONOCYTES # (AUTO) 0.5 K/uL (0.4-2.0); MONOCYTES % (AUTO) 6.1 (0-10); NEUTROPHILS # (AUTO) 7.3 K/ul (2.0-6.9); NEUTROPHILS % (AUTO) 84.9 % (42.2-75.2); PLATELET COUNT 238 10^3/uL (140-440); RDW COEFFICIENT OF VARIATION 14.1 % (11.6-14.8); RED BLOOD COUNT 3.24 10^6/ul (4.20-5.40); WHITE BLOOD COUNT 8.57 K/ul (4.6-10.2)
[2021-10-12 05:40] LABS: ALANINE AMINOTRANSFERASE 41.9 U/L (0-35); ALBUMIN 3.07 g/dL (3.5-5.0); ALKALINE PHOSPHATASE 82.5 U/L (53-141); BILIRUBIN,TOTAL 0.23 mg/dL (0.2-1.3); BLOOD UREA NITROGEN 26.9 mg/dL (7-17); CALCIUM 8.24 mg/dL (8.4-10.2); CHLORIDE 104.4 mmol/L (98-107); CREATININE 0.54 mg/dL (0.60-1.30); GLUCOSE 103.2 mg/dL (74-106); POTASSIUM 3.05 mmol/L (3.5-5.1); SODIUM 140.2 mmol/L (134.5-145); TOTAL PROTEIN 5.61 g/dL (6.3-8.2)
[2021-10-12 05:43] LABS: PROTHROMBIN TIME 26.4 SEC (9.3-11.0)
[2021-10-12] MEDS: SOLU-CORTEF 250 MG IVP SCH (05:44)
[2021-10-12] MEDS: PROTONIX PO SCH ×2 (05:44→17:06)
[2021-10-12] MEDS: CARAFATE PO SCH ×4 (05:45→20:24)
[2021-10-12] MEDS: NYSTATIN ORAL SUSP PO SCH ×4 (05:45→20:24)
[2021-10-12] MEDS: ROCEPHIN 1 GM/50 ML D5W 1 GM/50 ML BAG IV SCH ×2 (08:59→09:36)
[2021-10-12] MEDS: K-DUR PO SCH ×3 (09:00→17:06)
[2021-10-12] MEDS: CALAN SR PO SCH ×2 (09:00→20:23)
[2021-10-12] MEDS: LANOXIN PO SCH (09:00)
[2021-10-12] MEDS: LEXAPRO PO SCH (09:01)
[2021-10-12] MEDS: DIFLUCAN PO SCH (09:01)
[2021-10-12] MEDS: MEGACE PO SCH ×2 (09:01→20:24)
[2021-10-12] MEDS: SYMBICORT 160-4.5 MCG INHALER IH SCH (09:02)
[2021-10-12] MEDS: LANTUS SUBCUT SCH (09:08)
[2021-10-12] MEDS: DOXY-100 100 MG in SODIUM CHLORIDE 100ML 100 ML IV SCH ×2 (10:56→20:26)
[2021-10-12] MEDS ORDERED: LASIX IVP STA (11:08)
[2021-10-12] MEDS: NORCO 5-325 PO PRN ×2 (11:22→18:59)
--- NOTE | 2021-10-12 11:59 | DI ---
EXAM: Chest two views HISTORY: Shortness of breath FINDINGS: Normal cardiac and mediastinal contours. Normal pulmonary vasculature. The lungs are hyp erexpanded. No infiltrative opacities. Prior mediastinotomy. Atherosclerotic calcification of the aorta. No acute chest wall abnormality. IMPRESSION: Chronic obstructive pulmonary disease No acute cardiopulmonary disease
[2021-10-12] MEDS: HUMULIN R SUBCUT PRN ×3 (12:51→20:29)
[2021-10-12] MEDS: COUMADIN PO SCH (17:06)
[2021-10-12] MEDS: PULMICORT 1 MG/2 ML NEB SCH (20:05)
[2021-10-12] MEDS: XANAX PO SCH (20:23)
[2021-10-12] MEDS: COLACE PO PRN (20:23)
[2021-10-12] MEDS: ZOCOR PO SCH (20:24)
[2021-10-13] MEDS: DUONEB NEB SCH ×4 (04:45→19:55)
[2021-10-13] MEDS: PULMICORT 1 MG/2 ML NEB SCH ×2 (04:45→19:55)
[2021-10-13 05:00] LABS: BASOPHILS % (AUTO) 0.1 % (0.0-3.0); EOSINOPHILS % (AUTO) 0.2 % (0.0-7.0); HEMATOCRIT 29.3 % (37.0-47.0); HEMOGLOBIN 9.2 g/dl (12.0-16.0); IMMATURE GRANULOCYTE # (AUTO) 0.2 (0.0-1.0); IMMATURE GRANULOCYTE % (AUTO) 2.2 % (0.0-5.0); LYMPHOCYTES # (AUTO) 1.4 K/uL (0.60-3.4); LYMPHOCYTES % (AUTO) 13.4 (10.0-50.0); MEAN CORPUSCULAR HEMOGLOBIN 28.1 pg (27.0-31.0); MEAN CORPUSCULAR HGB CONC 31.4 (31.8-35.4); MEAN CORPUSCULAR VOLUME 89.6 fl (81.0-99.0); MONOCYTES # (AUTO) 0.8 K/uL (0.4-2.0); NEUTROPHILS # (AUTO) 7.7 K/ul (2.0-6.9); NEUTROPHILS % (AUTO) 76.1 % (42.2-75.2); PLATELET COUNT 240 10^3/uL (140-440); RDW COEFFICIENT OF VARIATION 14.2 % (11.6-14.8); RED BLOOD COUNT 3.27 10^6/ul (4.20-5.40); WHITE BLOOD COUNT 10.13 K/ul (4.6-10.2)
[2021-10-13 05:15] LABS: ALANINE AMINOTRANSFERASE 55.9 U/L (0-35); ALBUMIN 2.78 g/dL (3.5-5.0); ALKALINE PHOSPHATASE 82.2 U/L (53-141); ASPARTATE AMINO TRANSFERASE 55.5 U/L (14-36); BILIRUBIN,TOTAL 0.23 mg/dL (0.2-1.3); BLOOD UREA NITROGEN 26.5 mg/dL (7-17); CALCIUM 7.9 mg/dL (8.4-10.2); CARBON DIOXIDE 36.7 mmol/L (22-30.0); CHLORIDE 103.5 mmol/L (98-107); CREATININE 0.59 mg/dL (0.60-1.30); GLUCOSE 79.5 mg/dL (74-106); POTASSIUM 3.57 mmol/L (3.5-5.1); SODIUM 139.4 mmol/L (134.5-145); TOTAL PROTEIN 5.24 g/dL (6.3-8.2)
[2021-10-13] MEDS: NYSTATIN ORAL SUSP PO SCH ×4 (06:02→20:12)
[2021-10-13] MEDS: CARAFATE PO SCH ×4 (06:02→20:12)
[2021-10-13] MEDS: PROTONIX PO SCH ×2 (06:02→17:30)
[2021-10-13] MEDS: NORCO 5-325 PO PRN ×2 (07:08→13:40)
[2021-10-13] MEDS ORDERED: LASIX TAB PO ONE (08:32)
--- NOTE | 2021-10-13 08:43 | PCM.PROG ---
Attending Provider: ATTENDING PROVIDER: Dr. Melania CHA This patient is seen with Lashawn Austin, Nurse Practitioner. DATE OF SERVICE: 10/13/21 SUBJECTIVE: This 86 year old /WHITE F was hospitalized 10/07/21. Shortness of breath slightly improved this morning. She has been up walking. REVIEW OF SYSTEMS: CONSTITUTIONAL: No night sweats. No fatigue, malaise, lethargy. No fever or chills. Weakness. HEENT: Eyes: No visual changes. No eye pain. No eye discharge. ENT: No runny nose. No epistaxis. No sinus pain. No odynophagia. No congestion. RESPIRATORY: Cough, no congestion. No hemoptysis. Shortness of breath. CARDIOVASCULAR: No angina symptoms. No CHF symptoms. No atypical chest pain for CAD. No palpitations. No orthopnea.. GASTROINTESTINAL: No abdominal pain. No nausea or vomiting. No diarrhea or constipation. No hematemesis. No hematochezia. GENITOURINARY: No urgency. No frequency. No dysuria. No hematuria. No obstructive symptoms. No discharge. No pain. No significant abnormal bleeding. MUSCULOSKELETAL: No musculoskeletal pain; no joint swelling. NEUROLOGICAL: Awake, alert, oriented to time, place and person. No headache. No neck pain. No syncope. No seizures. No dizziness. PSYCHIATRIC: Not anxious. No depression. No suicidal thoughts. No homicidal thoughts. SKIN: No rash. No lesions. No wounds. ENDOCRINE: No unexplained weight loss. No weight gain. HEMATOLOGIC/LYMPHATIC: No anemia. No purpura. No petechiae. No prolonged or excessive bleeding. No palpable lymph nodes. PHYSICAL EXAMINATION: GENERAL: The patient is awake, alert and oriented, sitting in bed in no distress. VITAL SIGNS: Temperature 98.6 F, Pulse 83, Respiratory Rate 18, BP 125/54, Pulse Ox 92% HEENT: Head normocephalic, atraumatic. Eyes: Extraocular muscles are intact. Pupils are equal, round and reactive to light and accommodation. Ears: No lesions. Nose appeared normal. Throat: No exudate or erythema. NECK: Supple. No JVD, no carotid bruit. No lymphadenopathy or thyromegaly. LUNGS: Diminished breath sounds. Bilateral expiratory wheezing. Clear to auscultation. Percussion note normal. Chest symmetrical. HEART: S1, S2, no S3. No murmurs. No cyanosis or clubbing. No ascites. Pulses: Dorsalis pedis and posterior tibial pulses +1 to +2 both sides. ABDOMEN: Soft. Non-tender. Bowel sounds active. No CVA tenderness. No mass felt. EXTREMITIES: Improved leg edema. Full range of motion of all extremities, equal. NEUROLOGIC: No focal deficit. Cranial nerves II through XII are grossly intact. No headache. No double vision. SKIN: Not dry. Intact. Turgor-normal. LYMPHATIC: No palpable lymph nodes/no lymphedema. MUSCULOSKELETAL: Normal joints with no swelling. Muscle tone is normal. LAB REVIEW: 10/13/21 04:45 10/13/21 04:45 10/13/21 04:45: Sodium 139.4, Potassium 3.57, Chloride 103.5, Carbon Dioxide 36.7 H, Anion Gap 2.77, BUN 26.5 H, Creatinine 0.59 L, Estimated GFR (MDRD) 97.00, BUN/Creatinine Ratio 44.91, Glucose 79.5, Calcium 7.90 L, Total Bilirubin 0.23, AST 55.5 H, ALT 55.9 H, Alkaline Phosphatase 82.2, Total Protein 5.24 L, Albumin 2.78 L, Globulin 2.46, Albumin/Globulin Ratio 1.13 10/13/21 04:45: WBC 10.13, RBC 3.27 L, Hgb 9.2 L, Hct 29.3 L, MCV 89.6, MCH 28.1, MCHC 31.4 L, RDW Coeff of [place] 14.2, Plt Count 240, Immature Gran % (Auto) 2.2, Neut % (Auto) 76.1 H, Lymph % (Auto) 13.4, [place] % (Auto) 8.0, Eos % (Auto) 0.2, Baso % (Auto) 0.1, Neut # (Auto) 7.7 H, Lymph # (Auto) 1.4, [place] # (Auto) 0.8, Eos # (Auto) 0.0, Baso # (Auto) 0.0, Immature Gran # (Auto) 0.2 10/13/21 04:45: PT 26.0 H, INR 2.62 ASSESSMENT: Please see below. 1. Acute COPD exacerbation 2. UTI 3. Generalized weakness 4. Atrial fibrillation 5. Leg edema PLAN: 1. Discontinue Solu-Cortef 2. Prednisone 10mg BID 3. Lasix 20mg PO today Plan and coordination of the patient's care discussed in the presence of Roller Painter and nurse. SCRIBED BY: Geoffrey GUADALUPE scribed while in presence of service performed by Dr. Boyce/Lashawn Austin APRN on 10/13/21 ([id number])
[2021-10-13] MEDS: ROCEPHIN 1 GM/50 ML D5W 1 GM/50 ML BAG IV SCH (09:06)
[2021-10-13] MEDS: LEXAPRO PO SCH (09:06)
[2021-10-13] MEDS: K-DUR PO SCH ×3 (09:07→17:26)
[2021-10-13] MEDS: DIFLUCAN PO SCH (09:07)
[2021-10-13] MEDS: PREDNISONE PO SCH ×2 (09:07→17:26)
[2021-10-13] MEDS: LANTUS SUBCUT SCH (09:07)
[2021-10-13] MEDS: CALAN SR PO SCH ×2 (09:07→20:11)
[2021-10-13] MEDS: LANOXIN PO SCH (09:07)
[2021-10-13] MEDS: MEGACE PO SCH ×2 (09:07→20:12)
[2021-10-13] MEDS: DOXY-100 100 MG in SODIUM CHLORIDE 100ML 100 ML IV SCH ×3 (10:00→20:22)
[2021-10-13] MEDS: HUMULIN R SUBCUT PRN ×3 (11:45→20:12)
[2021-10-13] MEDS: COUMADIN PO SCH (17:27)
[2021-10-13] MEDS: XANAX PO SCH (20:11)
[2021-10-13] MEDS: ZOCOR PO SCH (20:12)
[2021-10-14 04:12] LABS: HEMATOCRIT 28.8 % (37.0-47.0); IMMATURE GRANULOCYTE # (AUTO) 0.1 (0.0-1.0); IMMATURE GRANULOCYTE % (AUTO) 1.5 % (0.0-5.0); LYMPHOCYTES # (AUTO) 0.8 K/uL (0.60-3.4); LYMPHOCYTES % (AUTO) 9.8 (10.0-50.0); MEAN CORPUSCULAR HGB CONC 31.3 (31.8-35.4); MEAN CORPUSCULAR VOLUME 89.7 fl (81.0-99.0); MONOCYTES # (AUTO) 0.6 K/uL (0.4-2.0); NEUTROPHILS # (AUTO) 6.7 K/ul (2.0-6.9); NEUTROPHILS % (AUTO) 81.7 % (42.2-75.2); PLATELET COUNT 230 10^3/uL (140-440); RDW COEFFICIENT OF VARIATION 14.1 % (11.6-14.8); RED BLOOD COUNT 3.21 10^6/ul (4.20-5.40); WHITE BLOOD COUNT 8.15 K/ul (4.6-10.2)
[2021-10-14 04:23] LABS: ALANINE AMINOTRANSFERASE 50.5 U/L (0-35); ALBUMIN 2.92 g/dL (3.5-5.0); ALKALINE PHOSPHATASE 85.7 U/L (53-141); ASPARTATE AMINO TRANSFERASE 41.7 U/L (14-36); BILIRUBIN,TOTAL 0.31 mg/dL (0.2-1.3); BLOOD UREA NITROGEN 20.3 mg/dL (7-17); CALCIUM 8.2 mg/dL (8.4-10.2); CARBON DIOXIDE 35.9 mmol/L (22-30.0); CHLORIDE 102.3 mmol/L (98-107); CREATININE 0.47 mg/dL (0.60-1.30); GLUCOSE 177.5 mg/dL (74-106); POTASSIUM 4.59 mmol/L (3.5-5.1); SODIUM 136.8 mmol/L (134.5-145); TOTAL PROTEIN 5.39 g/dL (6.3-8.2)
[2021-10-14 04:24] LABS: PROTHROMBIN TIME 36.1 SEC (9.3-11.0)
[2021-10-14] MEDS: PULMICORT 1 MG/2 ML NEB SCH (04:40)
[2021-10-14] MEDS: DUONEB NEB SCH ×2 (04:40→10:04)
[2021-10-14 05:09] VITALS: BP 145/68; TEMP 98.1
[2021-10-14] MEDS: HUMULIN R SUBCUT PRN (05:58)
[2021-10-14] MEDS: NYSTATIN ORAL SUSP PO SCH ×2 (05:59→11:44)
[2021-10-14] MEDS: CARAFATE PO SCH ×2 (05:59→11:44)
[2021-10-14] MEDS: PROTONIX PO SCH (05:59)
[2021-10-14] MEDS: NORCO 5-325 PO PRN (06:02)
--- NOTE | 2021-10-14 08:26 | PCM.PROG ---
Attending Provider: ATTENDING PROVIDER: Dr. Melania CHA This patient is seen with Lashawn Austin, Nurse Practitioner. DATE OF SERVICE: 10/14/21 SUBJECTIVE: This 86 year old /WHITE F was hospitalized 10/07/21. The patient is feeling better and has been up and eating better. Still very wheezy. No fever. REVIEW OF SYSTEMS: CONSTITUTIONAL: No night sweats. No fatigue, malaise, lethargy. No fever or chills. Weakness. HEENT: Eyes: No visual changes. No eye pain. No eye discharge. ENT: No runny nose. No epistaxis. No sinus pain. No odynophagia. No congestion. RESPIRATORY: Cough, no congestion. No hemoptysis. Shortness of breath. CARDIOVASCULAR: No angina symptoms. No CHF symptoms. No atypical chest pain for CAD. No palpitations. No orthopnea.. GASTROINTESTINAL: No abdominal pain. No nausea or vomiting. No diarrhea or constipation. No hematemesis. No hematochezia. GENITOURINARY: No urgency. No frequency. No dysuria. No hematuria. No obstructive symptoms. No discharge. No pain. No significant abnormal bleeding. MUSCULOSKELETAL: No musculoskeletal pain; no joint swelling. NEUROLOGICAL: Awake, alert, oriented to time, place and person. No headache. No neck pain. No syncope. No seizures. No dizziness. PSYCHIATRIC: Not anxious. No depression. No suicidal thoughts. No homicidal thoughts. SKIN: No rash. No lesions. No wounds. ENDOCRINE: No unexplained weight loss. No weight gain. HEMATOLOGIC/LYMPHATIC: No anemia. No purpura. No petechiae. No prolonged or excessive bleeding. No palpable lymph nodes. PHYSICAL EXAMINATION: GENERAL: The patient is awake, alert and oriented, sitting in bed in no distress. VITAL SIGNS: Temperature 98.1 F, Pulse 84, Respiratory Rate 18, BP 145/68, Pulse Ox 98% HEENT: Head normocephalic, atraumatic. Eyes: Extraocular muscles are intact. Pupils are equal, round and reactive to light and accommodation. Ears: No lesions. Nose appeared normal. Throat: No exudate or erythema. NECK: Supple. No JVD, no carotid bruit. No lymphadenopathy or thyromegaly. LUNGS: Diminished breath sounds. Bilateral expiratory wheezing. Clear to auscultation. Percussion note normal. Chest symmetrical. HEART: S1, S2, no S3. No murmurs. No cyanosis or clubbing. No ascites. Pulses: Dorsalis pedis and posterior tibial pulses +1 to +2 both sides. ABDOMEN: Soft. Non-tender. Bowel sounds active. No CVA tenderness. No mass felt. EXTREMITIES: Trace right pedal edema. Full range of motion of all extremities, equal. NEUROLOGIC: No focal deficit. Cranial nerves II through XII are grossly intact. No headache. No double vision. SKIN: Not dry. Intact. Turgor-normal. LYMPHATIC: No palpable lymph nodes/no lymphedema. MUSCULOSKELETAL: Normal joints with no swelling. Muscle tone is normal. LAB REVIEW: 10/14/21 04:05 10/14/21 04:05 10/14/21 04:05: Sodium 136.8, Potassium 4.59, Chloride 102.3, Carbon Dioxide 35.9 H, Anion Gap 3.19, BUN 20.3 H, Creatinine 0.47 L, Estimated GFR (MDRD) 126.00, BUN/Creatinine Ratio 43.19, Glucose 177.5 H D, Calcium 8.20 L, Total Bilirubin 0.31, AST 41.7 H, ALT 50.5 H, Alkaline Phosphatase 85.7, Total Protein 5.39 L, Albumin 2.92 L, Globulin 2.47, Albumin/Globulin Ratio 1.18 10/14/21 04:05: WBC 8.15, RBC 3.21 L, Hgb 9.0 L, Hct 28.8 L, MCV 89.7, MCH 28.0, MCHC 31.3 L, RDW Coeff of [place] 14.1, Plt Count 230, Immature Gran % (Auto) 1.5, Neut % (Auto) 81.7 H, Lymph % (Auto) 9.8 L, [place] % (Auto) 7.0, Eos % (Auto) 0.0, Baso % (Auto) 0.0, Neut # (Auto) 6.7, Lymph # (Auto) 0.8, [place] # (Auto) 0.6, Eos # (Auto) 0.0, Baso # (Auto) 0.0, Immature Gran # (Auto) 0.1 10/14/21 04:05: PT 36.1 H D, INR 3.69 ASSESSMENT: Please see below. 1. UTI, positive e-coli 2. Acute COPD exacerbation with positive e-coli 3. End stage COPD 4. Atrial fibrillation 5. Generalized weakness. PLAN: 1. Discharge home 2. Hold Coumadin for two days 3. Omnicef 300mg BID for 5 days 4. Prednisone 20mg TID for two days, then BID for three days and then daily for two days 5. Diflucan 150mg every other days for two doses 6. Followup next week 7. Lasix 20mg two times a week PRN with Potassium 10meq Plan and coordination of the patient's care discussed in the presence of School Year Nanny and nurse. SCRIBED BY: ISH MONROY Hotel Or Motel Cleaning Supervisor scribed while in presence of service performed by Dr. Boyce/Lashawn Austin APRN on 10/14/21 ([id number])
[2021-10-14] MEDS: LEXAPRO PO SCH (09:10)
[2021-10-14] MEDS: DIFLUCAN PO SCH (09:10)
[2021-10-14] MEDS: LANOXIN PO SCH (09:10)
[2021-10-14] MEDS: PREDNISONE PO SCH (09:10)
[2021-10-14] MEDS: MEGACE PO SCH (09:10)
[2021-10-14] MEDS: CALAN SR PO SCH (09:10)
[2021-10-14] MEDS: K-DUR PO SCH ×2 (09:10→11:44)
[2021-10-14] MEDS: LANTUS SUBCUT SCH (09:11)
[2021-10-14] MEDS: DOXY-100 100 MG in SODIUM CHLORIDE 100ML 100 ML IV SCH (09:41)
[2021-10-14] MEDS: ROCEPHIN 1 GM/50 ML D5W 1 GM/50 ML BAG IV SCH (09:42)
--- NOTE | 2021-10-17 11:35 | CM.DICTOOL ---
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 TUCKER/DR. SAN) RECURRENT UTI (ESBL POSITIVE) EMPHYSEMATOUS CYSTITIS COMPRESSION FRACTURE, T12 (2020) NON-COMPLIANCE MEDS, DIET, LIFESTYLE SURGICAL HX: CABG, 1997 HYSTERECTOMY COLONOSCOPY 2013 LAST VITALS Temp Pulse Resp BP Pulse Ox 98.1 F 90 18 145/68 H 98 10/14/21 05:06 10/14/21 09:10 10/14/21 05:06 10/14/21 05:06 10/14/21 05:26 TAKE THESE MEDICATIONS AT HOME Hydrocodone Bitart/Acetaminophen (Hydrocodone Bit/Acetaminophen 7.5/325 Mg Tablet) 1 tab PO BID PRN -- (NEW) PRN Reason: Pain Last Admin: 10/14/21 06:02 Dose: 1 tab Albuterol/Ipratropium (Ipratropium/Albuterol Vial.Neb) 3 ml NEB RTQID [facility] Last Admin: 10/14/21 04:40 Dose: 3 ml Alprazolam (Alprazolam 0.25 Mg Tablet) 0.25 mg PO BEDTIME [facility] Last Admin: 10/13/21 20:11 Dose: 0.25 mg Budesonide (Budesonide 1 Mg/2 Ml Vial.Neb) 0.5 mg NEB BID [facility] Last Admin: 10/14/21 04:40 Dose: 1 mg Digoxin (Digoxin 125 Mcg Tablet) 125 mcg PO DAILY [facility] Last Admin: 10/14/21 09:10 Dose: 125 mcg Docusate Sodium 50 MG /Sennosides 8.6 Mg Tablet) ONE PO BEDTIME PRN PRN Reason: Constipation Last Admin: 10/12/21 20:23 Dose: 100 mg Escitalopram Oxalate (Escitalopram Oxalate 10 Mg Tablet) 15 mg PO DAILY [facility] -- ( CHANGED) Last Admin: 10/14/21 09:10 Dose: 15 mg Fluconazole (Fluconazole 150 Mg Tablet) 150 mg PO EVERY OTHER DAY X 3 MORE DOSES [facility] -- ( NEW) Stop: 10/15/21 14:29 Last Admin: 10/14/21 09:10 Dose: 150 mg Gabapentin (Gabapentin 300 Mg Capsule) 300 mg PO BID PRN PRN Reason: NEUROPATHY Insulin Glargine (Insulin Glargine,Hum.Rec.Anlog 100 Units/Ml) 12 unit SUBCUT DAILY [facility] Last Admin: 10/14/21 09:11 Dose: 12 unit Insulin lispro ( 100 units per ml vial) use according to sliding scale prn Megestrol Acetate (Megestrol Acetate 40 Mg Tablet) 40 mg PO BID [facility] -- (CHANGED) Last Admin: 10/14/21 09:10 Dose: 40 mg Pantoprazole Sodium (Pantoprazole Sodium 40 Mg Tablet.Dr) 40 mg PO DAILYAC [facility] -- (NEW) Last Admin: 10/14/21 05:59 Dose: 40 mg Documented by: Potassium Chloride (Potassium Chloride 20 Meq Tab) 10 meq PO 2 X WEEKLY WITH LASIX -- (NEW) Last Admin: 10/14/21 09:10 Dose: 20 meq Lasix 20 mg po 2 x weekly -- ( NEW) Prednisone (Prednisone 20 Mg Tablet) 20 mg PO TIDWM MARIS X 2 DAYS, 20 MG PO BID X 3 DAYS, THEN 20 MG PO DAILY X 2 DAYS. -- (CHANGED) Last Admin: 10/14/21 09:10 Dose: 20 mg Simvastatin (Simvastatin 40 Mg Tablet) 40 mg PO BEDTIME [facility] Last Admin: 10/13/21 20:12 Dose: 40 mg Verapamil HCl (Verapamil Hcl 180 Mg Tablet.Er) 180 mg PO BID [facility] Last Admin: 10/14/21 09:10 Dose: 180 mg Warfarin Sodium (Warfarin Sodium 3 Mg Tablet) 3 mg PO QPM [facility], CONTINUE TO HOLD FOR 2 DAYS THEN RESUME 10/16/2021 -- (CHANGED) Last Admin: 10/13/21 17:27 Dose: 3 mg OMNICEF 300 MG PO BID X 5 DAYS , START 10/15/2021 ALLERGIES fenofibrate nanocrystallized [From Tricor] Adverse Reaction (Verified 10/11/20 15:15) fenofibrate,micronized [From Tricor] Adverse Reaction (Verified 10/11/20 15:15) nitrofurantoin [From Macrobid] Adverse Reaction (Verified 05/13/21 16:49) Diarrhea DISCONTINUED MEDICATIONS 1). LEXAPRO 10 mg PO DAILY [facility] 2). MACRODANTIN NEW PRESCRIPTIONS: 1).NORCO (Hydrocodone Bit/Acetaminophen 7.5/325 Mg Tablet) 1 tab PO BID PRN 2).LEXAPRO (Escitalopram Oxalate 10 Mg Tablet) 15 mg PO DAILY [facility] 3).DIFLUCAN (Fluconazole 150 Mg Tablet) 150 mg PO EVERY OTHER DAY X 3 MORE DOSES MARIS START 10/16/2021 4).MEGACE (Megestrol Acetate 40 Mg Tablet) 40 mg PO BID [facility] 5).PROTONIX(Pantoprazole Sodium 40 Mg Tablet.Dr) 40 mg PO DAILYAC [facility] 6).Potassium Chloride 10 meq PO 2 X WEEKLY WITH LASIX 7).LASIX 20 mg po 2 x weekly 8).Prednisone (Prednisone 20 Mg Tablet) 20 mg PO TIDWM MARIS X 2 DAYS, 20 MG PO BID X 3 DAYS, THEN 20 MG PO DAILY X 2 DAYS. 9).COUMADIN (Warfarin Sodium 3 Mg Tablet) 3 mg PO QPM [facility], CONTINUE TO HOLD FOR 2 DAYS THEN RESUME 10/16/2021 10). OMNICEF 300 MG PO BID X 5 DAYS, START 10/15/2021 SMOKING: SMOKING CESSATION DISEASE SPECIFIC EDUCATION: COPD DEHYDRATION UTI YEAST INFECTION EDEMA COVID SMOKING BLEEDING PRECAUTIONS FALL PRECAUTIONS OXYGEN PRECAUTIONS LAB REVIEW: 10/14/21 04:05 10/14/21 04:05 10/14/21 04:05: Sodium 136.8, Potassium 4.59, Chloride 102.3, Carbon Dioxide 35.9 H, Anion Gap 3.19, BUN 20.3 H, Creatinine 0.47 L, Estimated GFR (MDRD) 126.00, BUN/Creatinine Ratio 43.19, Glucose 177.5 H D, Calcium 8.20 L, Total Bilirubin 0.31, AST 41.7 H, ALT 50.5 H, Alkaline Phosphatase 85.7, Total Protein 5.39 L, Albumin 2.92 L, Globulin 2.47, Albumin/Globulin Ratio 1.18 10/14/21 04:05: WBC 8.15, RBC 3.21 L, Hgb 9.0 L, Hct 28.8 L, MCV 89.7, MCH 28.0, MCHC 31.3 L, RDW Coeff of [place] 14.1, Plt Count 230, Immature Gran % (Auto) 1.5, Neut % (Auto) 81.7 H, Lymph % (Auto) 9.8 L, [place] % (Auto) 7.0, Eos % (Auto) 0.0, Baso % (Auto) 0.0, Neut # (Auto) 6.7, Lymph # (Auto) 0.8, [place] # (Auto) 0.6, Eos # (Auto) 0.0, Baso # (Auto) 0.0, Immature Gran # (Auto) 0.1 10/14/21 04:05: PT 36.1 H D, INR 3.69 PLAN: DISCHARGE HOME: HOME TODAY OCTOBER 14, 2021, LIVES WITH ACTIVITY: UP WITH WHEELED WALKER AND SUPERVISION, NO STRENUOUS ACTIVITY BLEEDING PRECAUTIONS AND WATCH FOR S/S OF AND INSTRUCTED ON S/S GASTRIC OR INTRACRANIAL BLEEDING OXYGEN PRECAUTIONS PANDEMIC PRECAUTIONS DIET: CONSISTENT CARBOHYDRATE WITH INCREASED PROTEIN FOODS , GLUCOSE CONTROL BOOST 3 TIMES DAILY LIMITED EMPTY CALORIE FOODS SUCH CAKES AND CANDY FOLLOW UP: SEE DR. BELLO/ KEAGAN AHUMADA APRN/ NADEEM TORO APRN IN THE OFFICE ON October @ 2:00 OXYGEN: AT 2 LITERS A MINUTE PER NASAL CANNULA, NO SMOKING WITH OXYGEN. BLOOD SUGARS: USE FREESTYLE KAYLAN TO CHECK BLOOD SUGARS, CONTINUE SAME REGIMEN OF INSULIN CODE STATUS: DO NOT RESUSCITATE MRS HINOJOSA IS ALERT AND ORIENTED X 4. SHE HAS BEEN STEROID AND OXYGEN DEPENDENT AT HOME. SHE HAS RECURRENT EPISODES OF COPD EXACERBATION AND UTI. BOTH AFFECTED BY E- COLI. LUNGS DIMINISHED, HOWEVER NO COUGH. SHE STILL GETS OUT OF BREATH BUT HAS BEEN WALKING WITH OXYGEN, CGA X 1 AND RWX WELL, AFTER PT POC. SKIN WARM DRY AND INTACT. 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 SHE HAS HAD EPISODES OF POOR APPETITE AND TAKEN MEGACE BEFORE, INCREASED THIS HOSPITALIZATION. SHE FEEDS HERSELF, WITH 75 -100% NUTRITIONAL INTAKE WITH FAMILY ALSO BRINGING HER FOOD. EDEMA PERSISTENT TO LEGS AND HAS BEEN INSTRUCTED ON CAUSES AND TREATMENTS. SHE LIKES CAKES AND CANDIES. SHE DENIES ANY ACUTE PAIN OR DISCOMFORT RELATED TO VOIDING. HAS A CHRONIC BACK PAIN AND UTILIZES HYDROCODONE. SHE DOES DRIBBLE BUT IS CONTINENT OF BOWELS. LAST BM 10/12/21. SHE LIVES WITH HER SPOUSE AND A TEEN GRANDDAUGHTER THAT SHE CARES FOR. HER DTR, BASIL IS THE MAIN ONE THAT HELPS AT TIMES. MRS HINOJOSA DOES NOT WANT ANY FURTHER HELP AT HOME. MD KEAGAN HENRIQUEZ, DEJAH TORO APRN
--- NOTE | 2021-11-11 13:44 | DS ---
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 TUCKER/DR. SAN) RECURRENT UTI (ESBL POSITIVE) EMPHYSEMATOUS CYSTITIS COMPRESSION FRACTURE, T12 (2020) NON-COMPLIANCE MEDS, DIET, LIFESTYLE SURGICAL HX: CABG, 1997 HYSTERECTOMY COLONOSCOPY 2013 LAST VITALS: Temp Pulse Resp BP Pulse Ox 98.1 F 90 18 145/68 H 98 10/14/21 05:06 10/14/21 09:10 10/14/21 05:06 10/14/21 05:06 10/14/21 05:26 DISCHARGE INSTRUCTIONS: DISCHARGE HOME: HOME TODAY OCTOBER 14, 2021, LIVES WITH . MD FOLLOW UP: SEE DR. BELLO/ KEAGAN AHUMADA APRN/ NADEEM TORO APRN IN THE OFFICE ON October @ 2:00. OXYGEN: AT 2 LITERS A MINUTE PER NASAL CANNULA, NO SMOKING WITH OXYGEN. BLOOD SUGARS: USE FREESTYLE KAYLAN TO CHECK BLOOD SUGARS, CONTINUE SAME REGIMEN OF INSULIN. CODE STATUS: DO NOT RESUSCITATE TAKE THESE MEDICATIONS AT HOME: Hydrocodone Bitart/Acetaminophen (Hydrocodone Bit/Acetaminophen 7.5/325 Mg Tablet) 1 tab PO BID PRN -- (NEW) PRN Reason: Pain Last Admin: 10/14/21 06:02 Dose: 1 tab Albuterol/Ipratropium (Ipratropium/Albuterol Vial.Neb) 3 ml NEB RTQID MARIS Last Admin: 10/14/21 04:40 Dose: 3 ml Alprazolam (Alprazolam 0.25 Mg Tablet) 0.25 mg PO BEDTIME [facility] Last Admin: 10/13/21 20:11 Dose: 0.25 mg Budesonide (Budesonide 1 Mg/2 Ml Vial.Neb) 0.5 mg NEB BID [facility]IS Last Admin: 10/14/21 04:40 Dose: 1 mg Digoxin (Digoxin 125 Mcg Tablet) 125 mcg PO DAILY [facility] Last Admin: 10/14/21 09:10 Dose: 125 mcg Docusate Sodium 50 MG /Sennosides 8.6 Mg Tablet) ONE PO BEDTIME PRN PRN Reason: Constipation Last Admin: 10/12/21 20:23 Dose: 100 mg Escitalopram Oxalate (Escitalopram Oxalate 10 Mg Tablet) 15 mg PO DAILY [facility] -- ( CHANGED) Last Admin: 10/14/21 09:10 Dose: 15 mg Fluconazole (Fluconazole 150 Mg Tablet) 150 mg PO EVERY OTHER DAY X 3 MORE DOSES [facility] -- ( NEW) Stop: 10/15/21 14:29 Last Admin: 10/14/21 09:10 Dose: 150 mg Gabapentin (Gabapentin 300 Mg Capsule) 300 mg PO BID PRN PRN Reason: NEUROPATHY Insulin Glargine (Insulin Glargine,Hum.Rec.Anlog 100 Units/Ml) 12 unit SUBCUT DAILY [facility] Last Admin: 10/14/21 09:11 Dose: 12 unit Insulin lispro ( 100 units per ml vial) use according to sliding scale prn Megestrol Acetate (Megestrol Acetate 40 Mg Tablet) 40 mg PO BID [facility] -- (CHANGED) Last Admin: 10/14/21 09:10 Dose: 40 mg Pantoprazole Sodium (Pantoprazole Sodium 40 Mg Tablet.Dr) 40 mg PO DAILYAC [facility] -- (NEW) Last Admin: 10/14/21 05:59 Dose: 40 mg Documented by: Potassium Chloride (Potassium Chloride 20 Meq Tab) 10 meq PO 2 X WEEKLY WITH LASIX -- (NEW) Last Admin: 10/14/21 09:10 Dose: 20 meq Lasix 20 mg po 2 x weekly -- ( NEW) Prednisone (Prednisone 20 Mg Tablet) 20 mg PO TIDWM MARIS X 2 DAYS, 20 MG PO BID X 3 DAYS, THEN 20 MG PO DAILY X 2 DAYS. -- (CHANGED) Last Admin: 10/14/21 09:10 Dose: 20 mg Simvastatin (Simvastatin 40 Mg Tablet) 40 mg PO BEDTIME [facility] Last Admin: 10/13/21 20:12 Dose: 40 mg Verapamil HCl (Verapamil Hcl 180 Mg Tablet.Er) 180 mg PO BID [facility] Last Admin: 10/14/21 09:10 Dose: 180 mg Warfarin Sodium (Warfarin Sodium 3 Mg Tablet) 3 mg PO QPM [facility], CONTINUE TO HOLD FOR 2 DAYS THEN RESUME 10/16/2021 -- (CHANGED) Last Admin: 10/13/21 17:27 Dose: 3 mg OMNICEF 300 MG PO BID X 5 DAYS , START 10/15/2021 ALLERGIES: fenofibrate nanocrystallized [From Tricor] Adverse Reaction (Verified 10/11/20 15:15) fenofibrate,micronized [From Tricor] Adverse Reaction (Verified 10/11/20 15:15) nitrofurantoin [From Macrobid] Adverse Reaction (Verified 05/13/21 16:49) Diarrhea DISCONTINUED MEDICATIONS: 1). LEXAPRO 10 mg PO DAILY MARIS 2). MACRODANTIN NEW PRESCRIPTIONS: 1).NORCO (Hydrocodone Bit/Acetaminophen 7.5/325 Mg Tablet) 1 tab PO BID PRN 2).LEXAPRO (Escitalopram Oxalate 10 Mg Tablet) 15 mg PO DAILY [facility] 3).DIFLUCAN (Fluconazole 150 Mg Tablet) 150 mg PO EVERY OTHER DAY X 3 MORE DOSES MARIS START 10/16/2021 4).MEGACE (Megestrol Acetate 40 Mg Tablet) 40 mg PO BID [facility] 5).PROTONIX(Pantoprazole Sodium 40 Mg Tablet.Dr) 40 mg PO DAILYAC [facility] 6).Potassium Chloride 10 meq PO 2 X WEEKLY WITH LASIX 7).LASIX 20 mg po 2 x weekly 8).Prednisone (Prednisone 20 Mg Tablet) 20 mg PO TIDWM MARIS X 2 DAYS, 20 MG PO BID X 3 DAYS, THEN 20 MG PO DAILY X 2 DAYS. 9).COUMADIN (Warfarin Sodium 3 Mg Tablet) 3 mg PO QPM [facility], CONTINUE TO HOLD FOR 2 DAYS THEN RESUME 10/16/2021 10). OMNICEF 300 MG PO BID X 5 DAYS, START 10/15/2021 SMOKING: SMOKING CESSATION DISEASE SPECIFIC EDUCATION: COPD DEHYDRATION UTI YEAST INFECTION EDEMA COVID SMOKING BLEEDING PRECAUTIONS FALL PRECAUTIONS OXYGEN PRECAUTIONS LAB REVIEW: 10/14/21 04:05 10/14/21 04:05 10/14/21 04:05: Sodium 136.8, Potassium 4.59, Chloride 102.3, Carbon Dioxide 35.9 H, Anion Gap 3.19, BUN 20.3 H, Creatinine 0.47 L, Estimated GFR (MDRD) 126.00, BUN/Creatinine Ratio 43.19, Glucose 177.5 H D, Calcium 8.20 L, Total Bilirubin 0.31, AST 41.7 H, ALT 50.5 H, Alkaline Phosphatase 85.7, Total Protein 5.39 L, Albumin 2.92 L, Globulin 2.47, Albumin/Globulin Ratio 1.18 10/14/21 04:05: WBC 8.15, RBC 3.21 L, Hgb 9.0 L, Hct 28.8 L, MCV 89.7, MCH 28.0, MCHC 31.3 L, RDW Coeff of Leland 14.1, Plt Count 230, Immature Gran % (Auto) 1.5, Neut % (Auto) 81.7 H, Lymph % (Auto) 9.8 L, [place] % (Auto) 7.0, Eos % (Auto) 0.0, Baso % (Auto) 0.0, Neut # (Auto) 6.7, Lymph # (Auto) 0.8, [place] # (Auto) 0.6, Eos # (Auto) 0.0, Baso # (Auto) 0.0, Immature Gran # (Auto) 0.1 10/14/21 04:05: PT 36.1 H D, INR 3.69 ACTIVITY: UP WITH WHEELED WALKER AND SUPERVISION, NO STRENUOUS ACTIVITY BLEEDING PRECAUTIONS AND WATCH FOR S/S OF AND INSTRUCTED ON S/S GASTRIC OR INTRACRANIAL BLEEDING OXYGEN PRECAUTIONS PANDEMIC PRECAUTIONS DIET: CONSISTENT CARBOHYDRATE WITH INCREASED PROTEIN FOODS , GLUCOSE CONTROL BOOST 3 TIMES DAILY LIMITED EMPTY CALORIE FOODS SUCH CAKES AND CANDY HOSPITAL COURSE: 86 year old white female who was a directed admit from our office with shortness of breath. Chest x-ray showed no pneumonia. Found to be acute COPD exacerbation. She does have end stage COPD. She had severe generalized weakness and dehydration. She was found to have a UTI positive for e-coli, no ESBL. Sputum culture was also positive for e-coli while she was admitted. She was admitted and placed on Rocephin 1 gram IV daily along with Zithromax. INR remained therapeutic. She continued on her Coumadin and started on Solu-Medrol 125mg IV Q 8 hours. Started on normal saline IV at 75cc an hour. Over the course of the next several days she did slightly improve. Digoxin level was normal. Initially she had also stated that she her mouth was sore and she had some difficulty swallowing. I do feel that this was a result of thrush. She is on steroid inhalers and she is on a daily Prednisone as well so we started on her Diflucan 125mg PO daily and after two this has since resolved as far as any sore throat or swallowing problems. I do believe she is getting to the end of her disease as far as COPD and is somewhat suffering from depression. We did increase her Lexapro to 15mg daily. Also increased her Megace to 40mg twice a day. I discussed with her and the daughter that the likelihood of her making any remarkable recovery is not likely. She is at the endstage of all of her disease processes. She is weak. She wants to go home. I have encouraged to eat and increase her protein. She will go home on a papering dose of Prednisone 20mg TID times two days and BID for three days and then daily for two days. She will also go home on Omnicef 300mg BID for 5 days. We have encouraged her to keep her feet up. She is to wear oxygen at all times. She will take Diflucan every other day for three more doses. She has agreed to Home Health at this time. She will be discharged in stable condition. Again prognosis is poor. We have discussed this in great detail with both her and her daughter. We will continue to follow her closely and followup with her in the office next week. TIME SPENT: More than 60 minutes. MIKED
--- NOTE | 2021-11-11 13:56 | PN ---
DATE OF SERVICE: 10/11/2021 SUBJECTIVE: The patient seems to be stable today. Breathing is about the same. Blood cultures were done yesterday which so far are negative. She is on Rocephin now. The repeat respiratory panel was also negative. We repeated this due to worsening of respiratory condition. She has not had anymore fever. REVIEW OF SYSTEMS: CONSTITUTIONAL: No night sweats. No fatigue, malaise, lethargy. No fever or chills. Weakness. HEENT: Eyes: No visual changes. No eye pain. No eye discharge. ENT: No runny nose. No epistaxis. No sinus pain. No sore throat. No odynophagia. No congestion. RESPIRATORY: Xough, no congestion. No hemoptysis. Ahortness of breath. CARDIOVASCULAR: No angina symptoms. No CHF symptoms. No atypical chest pain for CAD. No palpitations. No PND. No orthopnea. GASTROINTESTINAL: No abdominal pain. No nausea or vomiting. No diarrhea or constipation. No hematemesis. No hematochezia. GENITOURINARY: No urgency. No frequency. No dysuria. No hematuria. No obstructive symptoms. No discharge. No pain. No significant abnormal bleeding. MUSCULOSKELETAL: No musculoskeletal pain; no joint swelling. NEUROLOGICAL: No headache. No neck pain. No syncope. No seizures. No dizziness. PSYCHIATRIC: Not anxious. No depression. No suicidal thoughts. No homicidal thoughts. SKIN: No rash. No lesions. No wounds. ENDOCRINE: No unexplained weight loss. No weight gain. HEMATOLOGIC/LYMPHATIC: No anemia. No purpura. No petechiae. No prolonged or excessive bleeding. No palpable lymph nodes. PHYSICAL EXAMINATION: HEENT: Head normocephalic, atraumatic. Eyes: Extraocular muscles are intact. Pupils are equal, round and reactive to light and accommodation. Ears: No lesions. Nose appeared normal. Throat: No exudate or erythema. NECK: Supple. No JVD, no carotid bruit. No lymphadenopathy or thyromegaly. LUNGS: Diminished breath sounds. Clear to auscultation. Wheezing to both lungs. Percussion note normal. Chest symmetrical. HEART: S1, S2, no S3. No murmurs. Irregular heart rate. No cyanosis or clubbing. No ascites. Pulses: Dorsalis pedis and posterior tibial pulses +1 to +2 bilaterally. ABDOMEN: Soft. Nontender. Bowel sounds active. No CVA tenderness. No mass felt. EXTREMITIES: No edema. Full range of motion of all extremities, equal. NEUROLOGIC: No focal deficit. Cranial nerves II through XII are grossly intact. No headache. No double vision. SKIN: Not dry. Intact. Turgor - normal. LYMPHATIC: No palpable lymph nodes/no lymphedema. MUSCULOSKELETAL: Normal joints with no swelling. Muscle tone is normal. ASSESSMENT: 1. Acute COPD exacerbation 2. E-coli positive sputum 3. E-coli positive UTI 4. Afib 5. Diabetes Mellitus type II PLAN: 1. We will continue with IV antibiotics 2. Tylenol for fever 3. We will follow closely. TIME SPENT: More than 30 minutes. Plan and coordination of the patient's care discussed in the presence of nurse. STEFANO
--- NOTE | 2021-11-11 13:59 | PN ---
DATE OF SERVICE: 10/12/2021 SUBJECTIVE: The patient has been up and about in her room. So far this morning she does have her makeup on. She states she is feeling slightly better. She is still very weak. REVIEW OF SYSTEMS: CONSTITUTIONAL: No night sweats. No fatigue, malaise, lethargy. No fever or chills. Weakness. HEENT: Eyes: No visual changes. No eye pain. No eye discharge. ENT: No runny nose. No epistaxis. No sinus pain. No sore throat. No odynophagia. No congestion. RESPIRATORY: Cough, no congestion. No hemoptysis. Shortness of breath. CARDIOVASCULAR: No angina symptoms. No CHF symptoms. No atypical chest pain for CAD. No palpitations. No PND. No orthopnea. GASTROINTESTINAL: No abdominal pain. No nausea or vomiting. No diarrhea or constipation. No hematemesis. No hematochezia. GENITOURINARY: No urgency. No frequency. No dysuria. No hematuria. No obstructive symptoms. No discharge. No pain. No significant abnormal bleeding. MUSCULOSKELETAL: No musculoskeletal pain; no joint swelling. NEUROLOGICAL: No headache. No neck pain. No syncope. No seizures. No dizziness. PSYCHIATRIC: Not anxious. No depression. No suicidal thoughts. No homicidal thoughts. SKIN: No rash. No lesions. No wounds. ENDOCRINE: No unexplained weight loss. No weight gain. HEMATOLOGIC/LYMPHATIC: No anemia. No purpura. No petechiae. No prolonged or excessive bleeding. No palpable lymph nodes. PHYSICAL EXAMINATION: HEENT: Head normocephalic, atraumatic. Eyes: Extraocular muscles are intact. Pupils are equal, round and reactive to light and accommodation. Ears: No lesions. Nose appeared normal. Throat: No exudate or erythema. NECK: Supple. No JVD, no carotid bruit. No lymphadenopathy or thyromegaly. LUNGS: Diminished breath sounds. Bilateral wheezing. Percussion note normal. Chest symmetrical. HEART: S1, S2, no S3. No murmurs. Irregular heart rate. No cyanosis or clubbing. No ascites. Pulses: Dorsalis pedis and posterior tibial pulses +1 to +2 bilaterally. ABDOMEN: Soft. Nontender. Bowel sounds active. No CVA tenderness. No mass felt. EXTREMITIES: No edema. Full range of motion of all extremities, equal. NEUROLOGIC: No focal deficit. Cranial nerves II through XII are grossly intact. No headache. No double vision. SKIN: Not dry. Intact. Turgor - normal. LYMPHATIC: No palpable lymph nodes/no lymphedema. MUSCULOSKELETAL: Normal joints with no swelling. Muscle tone is normal. LABS: Hgb slightly improved. ASSESSMENT: 1. Acute COPD exacerbation 2. UTI 3. Generalized weakness 4. Afib 5. Leg edema PLAN: 1. Will anticipate possible discontinuing IV steroids tomorrow 2. Continue IV antibiotics 3. Continue NEBS TIME SPENT: More than 30 minutes. Plan and coordination of the patient's care discussed in the presence of nurse. STEFANO
== END 2021-10-14 12:40 | disposition home or self-care (01) | DRG 204 ==
LOC: LAB 11:26 → MEDSURG A 13:01
PROVIDERS: ADMIT General Practice; ATTEND General Practice
DX: E11.9 Type 2 diabetes mellitus without complications; E86.0 Dehydration; R06.02 Shortness of breath; Z20.822 Contact with and (suspected) exposure to COVID-19; B96.20 Unspecified Escherichia coli [E. coli] as the cause of diseases classified elsewhere; F32.A Depression, unspecified; D64.9 Anemia, unspecified; Z72.0 Tobacco use; R53.1 Weakness; I48.91 Unspecified atrial fibrillation; Z79.01 Long term (current) use of anticoagulants; N30.80 Other cystitis without hematuria; Z51.81 Encounter for therapeutic drug level monitoring; Z16.12 Extended spectrum beta lactamase (ESBL) resistance; R60.0 Localized edema; Z87.440 Personal history of urinary (tract) infections; J44.1 Chronic obstructive pulmonary disease with (acute) exacerbation

== ENCOUNTER 2021-10-21 14:41 | Inpatient (IN) ==
[2021-10-21 14:55] LABS: BORDETELLA PARAPERTUSSIS (PCR) NOT DETECTED (NOT DETECT); BORDETELLA PERTUSSIS (PCR) NOT DETECTED (NOT DETECT); CHLAMYDIA PNEUMONIAE (PCR) NOT DETECTED (NOT DETECT); CORONAVIRUS 229E (PCR) NOT DETECTED (NOT DETECT); CORONAVIRUS HKU1 (PCR) NOT DETECTED (NOT DETECT); CORONAVIRUS NL63 (PCR) NOT DETECTED (NOT DETECT); CORONAVIRUS OC43 (PCR) NOT DETECTED (NOT DETECT); HUMAN METAPNEUMOVIRUS (PCR) NOT DETECTED (NOT DETECT); HUMAN RHINOVIRUS/ENTEROV (PCR) NOT DETECTED (NOT DETECT); INFLUENZA B (PCR) NOT DETECTED (NOT DETECT); MYCOPLASMA PNEUMONIAE (PCR) NOT DETECTED (NOT DETECT); PARAINFLUENZA VIRUS 1 (PCR) NOT DETECTED (NOT DETECT); PARAINFLUENZA VIRUS 2 (PCR) NOT DETECTED (NOT DETECT); PARAINFLUENZA VIRUS 3 (PCR) NOT DETECTED (NOT DETECT); PARAINFLUENZA VIRUS 4 (PCR) NOT DETECTED (NOT DETECT); RESPIRATORY SYNCYTIAL V (PCR) NOT DETECTED (NOT DETECT); SARS_COV_2 (PCR) NOT DETECTED (NOT DETECT)
[2021-10-21 15:45] LABS: ADENOVIRUS (PCR) NOT DETECTED (NOT DETECT)
[2021-10-21] MEDS ORDERED: ATROPINE SULFATE PFS IVP PRN (16:08)
[2021-10-21] MEDS ORDERED: TYLENOL PO PRN (16:08)
[2021-10-21] MEDS ORDERED: NITROSTAT SL PRN (16:08)
[2021-10-21] MEDS ORDERED: XANAX PO ONE (16:11)
[2021-10-21] MEDS ORDERED: LANOXIN IVP ONE (16:11)
[2021-10-21 16:25] LABS: BASOPHILS % (AUTO) 0.1 % (0.0-3.0); HEMATOCRIT 37.5 % (37.0-47.0); IMMATURE GRANULOCYTE # (AUTO) 0.1 (0.0-1.0); IMMATURE GRANULOCYTE % (AUTO) 0.9 % (0.0-5.0); LYMPHOCYTES # (AUTO) 0.5 K/uL (0.60-3.4); LYMPHOCYTES % (AUTO) 3.5 (10.0-50.0); MEAN CORPUSCULAR HEMOGLOBIN 27.8 pg (27.0-31.0); MEAN CORPUSCULAR VOLUME 86.8 fl (81.0-99.0); MONOCYTES # (AUTO) 0.7 K/uL (0.4-2.0); MONOCYTES % (AUTO) 5.1 (0-10); NEUTROPHILS # (AUTO) 11.5 K/ul (2.0-6.9); NEUTROPHILS % (AUTO) 90.4 % (42.2-75.2); PLATELET COUNT 287 10^3/uL (140-440); RDW COEFFICIENT OF VARIATION 14.2 % (11.6-14.8); RED BLOOD COUNT 4.32 10^6/ul (4.20-5.40); WHITE BLOOD COUNT 12.77 K/ul (4.6-10.2)
[2021-10-21 16:39] LABS: ALANINE AMINOTRANSFERASE 36.3 U/L (0-35); ALBUMIN 3.7 g/dL (3.5-5.0); ALKALINE PHOSPHATASE 98.8 U/L (53-141); ASPARTATE AMINO TRANSFERASE 30.9 U/L (14-36); BILIRUBIN,TOTAL 0.42 mg/dL (0.2-1.3); BLOOD UREA NITROGEN 28.6 mg/dL (7-17); CALCIUM 8.85 mg/dL (8.4-10.2); CARBON DIOXIDE 28.1 mmol/L (22-30.0); CHLORIDE 100.2 mmol/L (98-107); CREATINE KINASE 47.2 U/L (30-135); CREATININE 0.93 mg/dL (0.60-1.30); GLUCOSE 271.4 mg/dL (74-106); POTASSIUM 4.33 mmol/L (3.5-5.1); SODIUM 133.9 mmol/L (134.5-145); TOTAL PROTEIN 6.63 g/dL (6.3-8.2)
--- NOTE | 2021-10-21 16:39 | DI ---
EXAM: Single, portable AP view(s) chest. HISTORY: Shortness of breath. Cough. COMPARISON: 10/12/2021 TECHNIQUE: Single, portable AP view(s) of the chest. FINDINGS: Postoperative changes with median sternotomy wires. Lungs: The lung voulmes are normal.The lungs are clear without consolidation or effusion. There are n o suspicious nodules. There is no pneumothorax. Cardiovascular: The heart size and pulmonary vasculature is normal.. The aorta is tortuous and calci fied [place]/Mediastinum: Normal. Osseous structures. Normal for age. IMPRESSION: No acute pulmonary disease.
[2021-10-21 16:51] LABS: TROPONIN I 0.063 ng/ml (0.0000-0.120)
[2021-10-21 17:17] VITALS: BMI 16.8
[2021-10-21] MEDS ORDERED: CALAN SR PO ONE (18:10)
[2021-10-21] MEDS ORDERED: COUMADIN PO SCH (19:00)
[2021-10-21] MEDS: DECADRON IM SCH (19:08)
[2021-10-21] MEDS: NEURONTIN PO PRN (19:08)
[2021-10-21] MEDS: SYMBICORT 160-4.5 MCG INHALER IH SCH (20:33)
[2021-10-21] MEDS: MEGACE PO SCH (20:33)
[2021-10-21] MEDS: ZOCOR PO SCH (20:33)
[2021-10-21] MEDS: HUMULIN R SUBCUT PRN (20:34)
[2021-10-21] MEDS: NORCO 5-325 PO SCH (20:38)
[2021-10-21] MEDS: CALAN SR PO SCH (20:46)
[2021-10-21] MEDS ORDERED: SENNOSIDES DOCUSATE SODIUM PO SCH (21:00)
[2021-10-21] MEDS ORDERED: DUONEB NEB SCH (21:00)
[2021-10-22 00:54] LABS: CREATINE KINASE 37.2 U/L (30-135)
[2021-10-22 01:07] LABS: TROPONIN I 0.071 ng/ml (0.0000-0.120)
[2021-10-22] MEDS: DUONEB NEB SCH ×2 (04:35→18:05)
[2021-10-22] MEDS: HUMULIN R SUBCUT PRN ×4 (06:22→20:53)
[2021-10-22 06:25] LABS: PROTHROMBIN TIME 50.5 SEC (9.3-11.0)
[2021-10-22] MEDS ORDERED: PREDNISONE PO SCH (08:30)
[2021-10-22] MEDS: LANOXIN PO SCH (09:10)
[2021-10-22] MEDS: DECADRON IM SCH (09:10)
[2021-10-22] MEDS: LEXAPRO PO SCH (09:11)
[2021-10-22] MEDS: NORCO 5-325 PO SCH ×2 (09:11→20:09)
[2021-10-22] MEDS: MEGACE PO SCH ×2 (09:11→20:08)
[2021-10-22] MEDS: LANTUS SUBCUT SCH (09:11)
[2021-10-22] MEDS: CALAN SR PO SCH ×2 (09:11→20:08)
[2021-10-22] MEDS: SYMBICORT 160-4.5 MCG INHALER IH SCH ×2 (09:15→20:13)
[2021-10-22] MEDS ORDERED: CARDIZEM INJ IVP ONE ×2 (09:20→12:00)
[2021-10-22] MEDS ORDERED: MORPHINE 2 MG/ML VIAL IVP STA (09:20)
[2021-10-22] MEDS ORDERED: LANOXIN IVP ONE (09:20)
[2021-10-22] MEDS ORDERED: MORPHINE 4 MG/ML SYRINGE IVP PRN (10:33)
[2021-10-22] MEDS ORDERED: XANAX PO PRN (10:33)
[2021-10-22] MEDS: MORPHINE 2 MG/ML VIAL IVP PRN (13:31)
--- NOTE | 2021-10-22 13:47 | HP ---
DATE OF SERVICE: 10/21/2021 REASON FOR HOSPITALIZATION/HISTORY OF PRESENT ILLNESS: Palpitations off and on times three days. Shortness of breath on exertion. Continues to smoke. No symptoms of COVID 19. PAST MEDICAL HISTORY: COPD Hypertension Diabetes Mellitus type II Chronic bronchitis Anemia Atrial fibrillation Smoking Pulmonary nodule left PAD CAD/CABG Left lung cancer PAST SURGICAL HISTORY: CABG Hysterectomy Colonoscopy 05-21 Dr. Maloney REVIEW OF SYSTEMS: CONSTITUTIONAL: No fever, no fatigue. HEENT: No sinus drainage, no sore throat. RESPIRATORY: No cough, no congestion. CARDIOVASCULAR: No atypical chest pain for coronary artery disease. No angina, CHF symptoms, palpitations. Shortness of breath. GASTROINTESTINAL: No melena or abdominal pain. No GERD. GENITOURINARY: No hematuria, no prostatism, no polyuria. [employer]: No blackout, no dizziness, no headache, no double vision. MUSCULOSKELETAL: No osteoarthritis pain, no joint swelling. ENDOCRINE: No weight loss, no weight gain. SKIN: Not dry, no rash. PSYCHIATRIC: Anxious, no depression, no suicidal thoughts, no homicidal thoughts. SOCIAL HISTORY: Marital Status: . Alcohol Usage: No. Tobacco Usage: Yes. FAMILY HISTORY: Father Mother Brother 4 Sister 4 MEDICATIONS: Xanax 0.25mg HS Digoxin 125mg daily Lexapro 10mg daily Gabapentin 300mg BID PRN Insulin PRN Lantus 12 units daily Prednisone 5mg Megestrol 40mg daily Simvastatin 40mg Verapamil 180mg BID Coumadin 3mg daily Pericolace DUO NEBS BID [place] 5-325mg BID O2 ALLERGIES: Tricor Keflex sick 4-11-28 PHYSICAL EXAMINATION: V/S: Pulse 144, blood pressure 104/58, temperature 98.8, oxygen saturation 96% put on O2 2 liters nasal canula. GENERAL APPEARANCE: Oriented times three. HEENT: Normal. NECK: No JVP, no bruits. RESPIRATORY: Decreased breath sounds. CARDIOVASCULAR: S1, S2, no S3, no murmur. No cyanosis, clubbing. No ascites. Tachycardia. GI/ABDOMEN: No tenderness. Bowel sounds are active. EXTREMITIES: +1 edema, pulses +1, equal. [employer]: Deep tendon reflexes, sensory, motor and gait all normal. RECTAL: Dr. Maloney 2014/PELVIC: The patient refused. ASSESSMENT: 1. Atrial flutter/fibrillation with RVR 2. Acute COPD exacerbation 3. Leg edema 4. Emphysematous cystitis 5. Recurrent UTI 6. Diabetes Mellitus type II 7. Atrial fibrillation -Coumadin 8. History of compression fracture 9. Right upper lobe nodule 10.Left lower lung nodule 11.Noncompliant 12.Chronic bronchitis 13.Leg edema 14.Anxiety 15. Smoker 15.CABG 98 16.CAD 17.PAD 18.Neuropathy 19.Anemia 20.Pneumonia PLAN: 1. Admit 2. Routine telemetry orders 3. Elevate legs 4. Continue all home medications 5. Daily INR 6. Lasix 0.25mg IV times one day 7. Oxygen 2 liters nasal canula 8. Lanoxin level A 9. T4 TSH 10.DNR 11.U/A and culture and sensitivity 12.Xanax 0.25mg PO now TIME SPENT: More than 70 minutes. MTDD
[2021-10-22 17:48] LABS: BILIRUBIN,URINE Negative (NEGATIVE); CLARITY,URINE Clear (CLEAR); COLOR,URINE Yellow (YELLOW); KETONES,URINE Negative (NEGATIVE); LEUKOCYTE ESTERASE ,URINE Negative (NEGATIVE); NITRITE,URINE Negative (NEGATIVE); PROTEIN,URINE 1+ (NEGATIVE); URINE, BLOOD Negative (NEGATIVE); UROBILINOGEN,URINE 0.2 (0.2)
[2021-10-22 18:11] LABS: GLUCOSE, URINE (UA) 3+ (NEGATIVE)
[2021-10-22 18:22] LABS: BACTERIA,URINE 1+ (NOT PRESENT)
[2021-10-22] MEDS: SENNA PO SCH (20:08)
[2021-10-22] MEDS: XANAX PO SCH (20:08)
[2021-10-22] MEDS: ZOCOR PO SCH (20:08)
[2021-10-22] MEDS: COLACE PO SCH (20:09)
[2021-10-23] MEDS: DUONEB NEB SCH (05:25)
[2021-10-23 05:56] LABS: BASOPHILS % (AUTO) 0.1 % (0.0-3.0); EOSINOPHILS % (AUTO) 0.1 % (0.0-7.0); HEMATOCRIT 30.7 % (37.0-47.0); HEMOGLOBIN 9.8 g/dl (12.0-16.0); IMMATURE GRANULOCYTE # (AUTO) 0.1 (0.0-1.0); IMMATURE GRANULOCYTE % (AUTO) 0.8 % (0.0-5.0); LYMPHOCYTES % (AUTO) 6.4 (10.0-50.0); MEAN CORPUSCULAR HEMOGLOBIN 28.1 pg (27.0-31.0); MEAN CORPUSCULAR HGB CONC 31.9 (31.8-35.4); MONOCYTES # (AUTO) 0.8 K/uL (0.4-2.0); MONOCYTES % (AUTO) 5.5 (0-10); NEUTROPHILS # (AUTO) 13.4 K/ul (2.0-6.9); NEUTROPHILS % (AUTO) 87.1 % (42.2-75.2); PLATELET COUNT 231 10^3/uL (140-440); RDW COEFFICIENT OF VARIATION 14.2 % (11.6-14.8); RED BLOOD COUNT 3.49 10^6/ul (4.20-5.40); WHITE BLOOD COUNT 15.41 K/ul (4.6-10.2)
[2021-10-23 06:14] LABS: ALANINE AMINOTRANSFERASE 28.5 U/L (0-35); ALBUMIN 3.04 g/dL (3.5-5.0); ASPARTATE AMINO TRANSFERASE 29.1 U/L (14-36); BILIRUBIN,TOTAL 0.31 mg/dL (0.2-1.3); BLOOD UREA NITROGEN 25.5 mg/dL (7-17); CALCIUM 8.68 mg/dL (8.4-10.2); CARBON DIOXIDE 31.8 mmol/L (22-30.0); CHLORIDE 105.9 mmol/L (98-107); CREATININE 0.48 mg/dL (0.60-1.30); GLUCOSE 111.5 mg/dL (74-106); POTASSIUM 3.85 mmol/L (3.5-5.1); SODIUM 136.8 mmol/L (134.5-145); TOTAL PROTEIN 5.82 g/dL (6.3-8.2)
[2021-10-23 06:36] LABS: PROTHROMBIN TIME 30.4 SEC (9.3-11.0)
[2021-10-23] MEDS: MORPHINE 2 MG/ML VIAL IVP PRN ×2 (06:39→14:57)
[2021-10-23] MEDS: LANOXIN PO SCH (08:54)
[2021-10-23] MEDS: LEXAPRO PO SCH (08:54)
[2021-10-23] MEDS: NORCO 5-325 PO SCH ×2 (08:54→21:30)
[2021-10-23] MEDS: SYMBICORT 160-4.5 MCG INHALER IH SCH ×2 (08:55→21:30)
[2021-10-23] MEDS: DECADRON IM SCH (08:55)
[2021-10-23] MEDS: MEGACE PO SCH ×2 (08:55→21:30)
[2021-10-23] MEDS: CALAN SR PO SCH ×2 (08:55→21:29)
--- NOTE | 2021-10-23 09:13 | PCM.PROG ---
Attending Provider: ATTENDING PROVIDER: Dr. SAMUEL BELLO This patient is seen with Lashawn Austin, Nurse Practitioner. DATE OF SERVICE: 10/23/21 SUBJECTIVE: This 86 year old /WHITE F was hospitalized 10/21/21. The patient's INR has improved. Heart rate generally 90-100 although easily increases with any sort of movement. Respiratory status unchanged. REVIEW OF SYSTEMS: CONSTITUTIONAL: No night sweats. No fatigue, malaise, lethargy. No fever or chills. Weakness. HEENT: Eyes: No visual changes. No eye pain. No eye discharge. ENT: No runny nose. No epistaxis. No sinus pain. No odynophagia. No congestion. RESPIRATORY: No cough, no congestion. No hemoptysis. Shortness of breath. CARDIOVASCULAR: Tachycardia. No angina symptoms. No CHF symptoms. No atypical chest pain for CAD. No palpitations. No orthopnea.. GASTROINTESTINAL: No abdominal pain. No nausea or vomiting. No diarrhea or constipation. No hematemesis. No hematochezia. GENITOURINARY: No urgency. No frequency. No dysuria. No hematuria. No obstructive symptoms. No discharge. No pain. No significant abnormal bleeding. MUSCULOSKELETAL: No musculoskeletal pain; no joint swelling. NEUROLOGICAL: Awake, alert, oriented to time, place and person. No headache. No neck pain. No syncope. No seizures. No dizziness. PSYCHIATRIC: Not anxious. No depression. No suicidal thoughts. No homicidal thoughts. SKIN: No rash. No lesions. No wounds. ENDOCRINE: No unexplained weight loss. No weight gain. HEMATOLOGIC/LYMPHATIC: No anemia. No purpura. No petechiae. No prolonged or excessive bleeding. No palpable lymph nodes. PHYSICAL EXAMINATION: GENERAL: The patient is awake, alert and oriented, lying in bed in no distress. VITAL SIGNS: Temperature 97.7 F, Pulse 88, Respiratory Rate 20, BP 158/76, Pulse Ox 96% HEENT: Head normocephalic, atraumatic. Eyes: Extraocular muscles are intact. Pupils are equal, round and reactive to light and accommodation. Ears: No lesions. Nose appeared normal. Throat: No exudate or erythema. NECK: Supple. No JVD, no carotid bruit. No lymphadenopathy or thyromegaly. LUNGS: Diminished breath sounds. Bilateral inspiratory and expiratory wheezing. Clear to auscultation. Percussion note normal. Chest symmetrical. HEART: S1, S2, no S3. No murmurs. Irregular heart rate. No cyanosis or clubbing. No ascites. Pulses: Dorsalis pedis and posterior tibial pulses +1 to +2 both sides. ABDOMEN: Soft. Non-tender. Bowel sounds active. No CVA tenderness. No mass felt. EXTREMITIES: No edema. Full range of motion of all extremities, equal. NEUROLOGIC: No focal deficit. Cranial nerves II through XII are grossly intact. No headache. No double vision. SKIN: Not dry. Intact. Turgor-normal. LYMPHATIC: No palpable lymph nodes/no lymphedema. MUSCULOSKELETAL: Normal joints with no swelling. Muscle tone is normal. LAB REVIEW: 10/23/21 05:10 10/23/21 05:10 10/23/21 05:10: Sodium 136.8, Potassium 3.85, Chloride 105.9, Carbon Dioxide 31.8 H, Anion Gap 2.95, BUN 25.5 H, Creatinine 0.48 L, Estimated GFR (MDRD) 123.00, BUN/Creatinine Ratio 53.12, Glucose 111.5 H, Calcium 8.68, Total Bilirubin 0.31, AST 29.1, ALT 28.5, Alkaline Phosphatase 79.0, Total Protein 5.82 L, Albumin 3.04 L, Globulin 2.78, Albumin/Globulin Ratio 1.09 10/23/21 05:10: WBC 15.41 H, RBC 3.49 L, Hgb 9.8 L, Hct 30.7 L D, MCV 88.0, MCH 28.1, MCHC 31.9, RDW Coeff of [place] 14.2, Plt Count 231, Immature Gran % (Auto) 0.8, Neut % (Auto) 87.1 H, Lymph % (Auto) 6.4 L, [place] % (Auto) 5.5, Eos % (Auto) 0.1, Baso % (Auto) 0.1, Neut # (Auto) 13.4 H, Lymph # (Auto) 1.0, [place] # (Auto) 0.8, Eos # (Auto) 0.0, Baso # (Auto) 0.0, Immature Gran # (Auto) 0.1 10/23/21 05:10: PT 30.4 H D, INR 3.08 D 10/21/21 14:18: Urine Color Yellow, Urine Clarity Clear, Urine pH 7.0, Ur Specific [place] 1.020, Urine Protein 1+ H, Urine Glucose (UA) 3+ H, Urine Ketones Negative, Urine Blood Negative, Urine Nitrite Negative, Urine Bilirubin Negative, Urine Urobilinogen 0.2, Ur Leukocyte Esterase Negative, Urine Microscopic RBC 2-5, Ur Squamous Epith Cells 2-5, Urine Bacteria 1+ ASSESSMENT: Please see below. 1. Atrial fibrillation/flutter 2. End stage COPD 3. Chronic respiratory failure 4. Hypercoagulation 5. Generalized weakness. PLAN: 1. Continue with medications 2. Prognosis is poor 3. Discussed with the patient may need possible Hospice in very near future. Plan and coordination of the patient's care discussed in the presence of Roofing Layer and nurse. SCRIBED BY: Geoffrey GUADALUPE scribed while in presence of service performed by Dr. Bello/Lashawn Austin APRN on 10/23/21 ([id number])
[2021-10-23] MEDS: LANTUS SUBCUT SCH (09:45)
--- NOTE | 2021-10-23 11:54 | PN ---
DATE OF SERVICE: 10/21/2021 SUBJECTIVE: The patient was hospitalized today with SVT, Atrial flutter with rate of [address] depression. The patient doesn't have any symptoms CHF or coronary insufficiency. The patient is going to be given 0.25mg IV Lanoxin and the dose Verapamil 180mg is going to be given earlier. She also going to be receive Decadron 1cc today and 1cc Decadron in the morning. The patient's prognosis is poor considering the patient's multiple end stage medical problems like chronic lung disease with heavy smoking with history of C of the lung status post surgery and radiation. The patient has coronary bypass surgery nearly 24 years ago. History of coronary artery disease for many years. Diabetes Mellitus practically uncontrolled. Cachexia with weight of 80 pounds of BMI 15 to 17. TIME SPENT: More than 30 minutes. Plan and coordination of the patient's care discussed in the presence of nurse. STEFANO
[2021-10-23] MEDS: HUMULIN R SUBCUT PRN ×3 (12:01→21:29)
--- NOTE | 2021-10-23 12:51 | PN ---
DATE OF SERVICE: 10/22/2021 SUBJECTIVE: 86 year old white female hospitalized with shortness of breath, cough and increased atrial flutter/fib with rapid ventricular response. The patient this morning was feeling extremely short of breath causing mild respiratory distress. The patient was given 2mg of Morphine Sulfate along with Cardizem PO and 5mg Cardizem IV along with Lanoxin 0.125mg small dose because the level was 1.9. In any case it was made to slow her ventricular response. The patient does not seem to have symptoms of CHF. Denies of any chest pain. REVIEW OF SYSTEMS: CONSTITUTIONAL: No night sweats. No fatigue, malaise, lethargy. No fever or chills. Feels tired. HEENT: Eyes: No visual changes. No eye pain. No eye discharge. ENT: No runny nose. No epistaxis. No sinus pain. No sore throat. No odynophagia. No congestion. RESPIRATORY: No cough, no congestion. No hemoptysis. Shortness of breath on minimal exertion. CARDIOVASCULAR: No angina symptoms. No CHF symptoms. No atypical chest pain for CAD. No palpitations. No PND. No orthopnea. GASTROINTESTINAL: No abdominal pain. No nausea or vomiting. No diarrhea or constipation. No hematemesis. No hematochezia. GENITOURINARY: No urgency. No frequency. No dysuria. No hematuria. No obstructive symptoms. No discharge. No pain. No significant abnormal bleeding. MUSCULOSKELETAL: No musculoskeletal pain; no joint swelling. NEUROLOGICAL: No headache. No neck pain. No syncope. No seizures. No dizziness. PSYCHIATRIC: Not anxious. No depression. No suicidal thoughts. No homicidal thoughts. SKIN: No rash. No lesions. No wounds. ENDOCRINE: No unexplained weight loss. No weight gain. HEMATOLOGIC/LYMPHATIC: No anemia. No purpura. No petechiae. No prolonged or excessive bleeding. No palpable lymph nodes. PHYSICAL EXAMINATION: VITAL SIGNS: Temperature 98.2, pulse 100, respiratory rate 16, blood pressure 160/80 and pulse ox 99%. HEENT: Head normocephalic, atraumatic. Eyes: Extraocular muscles are intact. Pupils are equal, round and reactive to light and accommodation. Ears: No lesions. Nose appeared normal. Throat: No exudate or erythema. NECK: Supple. No JVD, no carotid bruit. No lymphadenopathy or thyromegaly. LUNGS: Decreased breath sounds but clear with mild wheeze. Percussion note normal. Chest symmetrical. HEART: S1, S2, no S3. No murmurs. No cyanosis or clubbing. No ascites. Pulses: Dorsalis pedis and posterior tibial pulses +1 to +2 bilaterally. ABDOMEN: Soft. Nontender. Bowel sounds active. No CVA tenderness. No mass felt. EXTREMITIES: No edema. Full range of motion of all extremities, equal. NEUROLOGIC: No focal deficit. Cranial nerves II through XII are grossly intact. No headache. No double vision. SKIN: Not dry. Intact. Turgor - normal. LYMPHATIC: No palpable lymph nodes/no lymphedema. MUSCULOSKELETAL: Normal joints with no swelling. Muscle tone is normal. LABS: hgb 12, hct 37, WBC 12,000 normal differential, creatinine 0.9, BUN 28, potassium 4.3. ASSESSMENT: 1. Atrial fib/flutter with varying ventricular response. Mostly it is faster 2. Severe chronic lung disease with history of smoking. 3. History of C of the lung with radiation 4. Coronary bypass surgery with history of coronary artery disease PLAN: 1. Encourage the patient to eat because she is cachetic and her BMI is 17, 80 pounds. 2. The patient is strongly advised to quit smoking. Counseling for smoking done. 3. Medication Cardizem 5mg given IV along with extra mg Cardizem 4. Lanoxin 0.125mg small dose was given 5. Morphine sulfate 2mg every 2-3 hourly will be given 6. Continue the rest of the medications including steroids 7. INR is 5 so we will hold her Coumadin until further orders PROGNOSIS: Poor. The patient is noncompliant of all aspects of medical care. TIME SPENT: More than 30 minutes. Plan and coordination of the patient's care discussed in the presence of nurse. STEFANO
[2021-10-23] MEDS: VENTOLIN HFA (PER PUFF-WITH SPACER) IH SCH (18:35)
[2021-10-23] MEDS: ATROVENT HFA INHALER (PER PUFF-WITH SPACER) IH SCH (18:38)
[2021-10-23] MEDS: COLACE PO SCH (21:29)
[2021-10-23] MEDS: SENNA PO SCH (21:29)
[2021-10-23] MEDS: XANAX PO SCH (21:29)
[2021-10-23] MEDS: ZOCOR PO SCH (21:30)
[2021-10-24] MEDS: MORPHINE 2 MG/ML VIAL IVP PRN ×4 (00:52→19:32)
[2021-10-24] MEDS: VENTOLIN HFA (PER PUFF-WITH SPACER) IH SCH ×3 (04:25→20:20)
[2021-10-24] MEDS: ATROVENT HFA INHALER (PER PUFF-WITH SPACER) IH SCH ×3 (04:25→20:20)
[2021-10-24 06:29] LABS: BASOPHILS % (AUTO) 0.1 % (0.0-3.0); EOSINOPHILS % (AUTO) 0.2 % (0.0-7.0); HEMATOCRIT 32.4 % (37.0-47.0); HEMOGLOBIN 10.3 g/dl (12.0-16.0); IMMATURE GRANULOCYTE # (AUTO) 0.1 (0.0-1.0); IMMATURE GRANULOCYTE % (AUTO) 0.6 % (0.0-5.0); LYMPHOCYTES # (AUTO) 0.9 K/uL (0.60-3.4); LYMPHOCYTES % (AUTO) 6.1 (10.0-50.0); MEAN CORPUSCULAR HEMOGLOBIN 27.7 pg (27.0-31.0); MEAN CORPUSCULAR HGB CONC 31.8 (31.8-35.4); MEAN CORPUSCULAR VOLUME 87.1 fl (81.0-99.0); MONOCYTES # (AUTO) 0.8 K/uL (0.4-2.0); MONOCYTES % (AUTO) 5.8 (0-10); NEUTROPHILS # (AUTO) 12.6 K/ul (2.0-6.9); NEUTROPHILS % (AUTO) 87.2 % (42.2-75.2); PLATELET COUNT 242 10^3/uL (140-440); RDW COEFFICIENT OF VARIATION 14.1 % (11.6-14.8); RED BLOOD COUNT 3.72 10^6/ul (4.20-5.40); WHITE BLOOD COUNT 14.46 K/ul (4.6-10.2)
[2021-10-24 06:43] LABS: PROTHROMBIN TIME 13.4 SEC (9.3-11.0)
[2021-10-24 06:50] LABS: ALANINE AMINOTRANSFERASE 33.7 U/L (0-35); ALBUMIN 3.15 g/dL (3.5-5.0); ALKALINE PHOSPHATASE 92.4 U/L (53-141); ASPARTATE AMINO TRANSFERASE 31.3 U/L (14-36); BILIRUBIN,TOTAL 0.39 mg/dL (0.2-1.3); BLOOD UREA NITROGEN 18.8 mg/dL (7-17); CALCIUM 8.66 mg/dL (8.4-10.2); CARBON DIOXIDE 33.6 mmol/L (22-30.0); CHLORIDE 103.3 mmol/L (98-107); CREATININE 0.49 mg/dL (0.60-1.30); GLUCOSE 75.2 mg/dL (74-106); POTASSIUM 3.76 mmol/L (3.5-5.1); SODIUM 136.1 mmol/L (134.5-145); TOTAL PROTEIN 5.99 g/dL (6.3-8.2)
[2021-10-24] MEDS: SYMBICORT 160-4.5 MCG INHALER IH SCH ×2 (09:00→20:43)
[2021-10-24] MEDS: LANTUS SUBCUT SCH (09:01)
[2021-10-24] MEDS: DECADRON IM SCH (09:01)
[2021-10-24] MEDS: MEGACE PO SCH ×2 (09:02→20:42)
[2021-10-24] MEDS: LEXAPRO PO SCH (09:02)
[2021-10-24] MEDS: CALAN SR PO SCH ×2 (09:02→20:42)
[2021-10-24] MEDS: NORCO 5-325 PO SCH ×2 (09:02→20:50)
[2021-10-24] MEDS: LANOXIN PO SCH (09:02)
--- NOTE | 2021-10-24 09:03 | PCM.PROG ---
Attending Provider: ATTENDING PROVIDER: Dr. SAMUEL BELLO DATE OF SERVICE: 10/24/21 SUBJECTIVE: This 86 year old /WHITE F was hospitalized 10/21/21 with atrial flutter/fib with rapid ventricular response with COPD exacerbation. Condition seems to have improved, feeling better and less short of breath. The patient is in atrial fib with varying ventricular response. REVIEW OF SYSTEMS: CONSTITUTIONAL: No night sweats. No fatigue, malaise, lethargy. No fever or chills. HEENT: Eyes: No visual changes. No eye pain. No eye discharge. ENT: No runny nose. No epistaxis. No sinus pain. No odynophagia. No congestion. RESPIRATORY: No cough, no congestion. No hemoptysis. No shortness of breath. CARDIOVASCULAR: No angina symptoms. No CHF symptoms. No atypical chest pain for CAD. No palpitations. No orthopnea.. GASTROINTESTINAL: No abdominal pain. No nausea or vomiting. No diarrhea or constipation. No hematemesis. No hematochezia. GENITOURINARY: No urgency. No frequency. No dysuria. No hematuria. No obstructive symptoms. No discharge. No pain. No significant abnormal bleeding. MUSCULOSKELETAL: No musculoskeletal pain; no joint swelling. NEUROLOGICAL: Awake, alert, oriented to time, place and person. No headache. No neck pain. No syncope. No seizures. No dizziness. PSYCHIATRIC: Not anxious. No depression. No suicidal thoughts. No homicidal thoughts. SKIN: No rash. No lesions. No wounds. ENDOCRINE: No unexplained weight loss. No weight gain. HEMATOLOGIC/LYMPHATIC: No anemia. No purpura. No petechiae. No prolonged or excessive bleeding. No palpable lymph nodes. PHYSICAL EXAMINATION: GENERAL: The patient is awake, alert and oriented, lying in bed in no distress. VITAL SIGNS: Temperature 98.2 F, Pulse 124, Respiratory Rate 24, BP 151/80, Pulse Ox 94% HEENT: Head normocephalic, atraumatic. Eyes: Extraocular muscles are intact. Pupils are equal, round and reactive to light and accommodation. Ears: No lesions. Nose appeared normal. Throat: No exudate or erythema. NECK: Supple. No JVD, no carotid bruit. No lymphadenopathy or thyromegaly. LUNGS: Decreased breath sounds. Mild expiratory wheezing. Percussion note normal. Chest symmetrical. HEART: S1, S2, no S3. No murmurs. No cyanosis or clubbing. No ascites. Puls es: Dorsalis pedis and posterior tibial pulses +1 to +2 both sides. ABDOMEN: Soft. Non-tender. Bowel sounds active. No CVA tenderness. No mass felt. EXTREMITIES: No edema. Full range of motion of all extremities, equal. NEUROLOGIC: No focal deficit. Cranial nerves II through XII are grossly intact. No headache, no double vision or headache. SKIN: Warm and dry. Intact. Turgor-normal. LYMPHATIC: No palpable lymph nodes/no lymphedema. MUSCULOSKELETAL: Normal joints with no swelling. Muscle tone is normal. LAB REVIEW: 10/24/21 05:10 10/24/21 05:10 10/24/21 05:10: Sodium 136.1, Potassium 3.76, Chloride 103.3, Carbon Dioxide 33.6 H, Anion Gap 2.96, BUN 18.8 H, Creatinine 0.49 L, Estimated GFR (MDRD) 120.00, BUN/Creatinine Ratio 38.36, Glucose 75.2, Calcium 8.66, Total Bilirubin 0.39, AST 31.3, ALT 33.7, Alkaline Phosphatase 92.4, Total Protein 5.99 L, Album in 3.15 L, Globulin 2.84, Albumin/Globulin Ratio 1.10 10/24/21 05:10: PT 13.4 H D, INR 1.31 10/24/21 05:10: WBC 14.46 H, RBC 3.72 L, Hgb 10.3 L, Hct 32.4 L, MCV 87.1, MCH 27.7, MCHC 31.8, RDW Coeff of Leland 14.1, Plt Count 242, Immature Gran % (Auto) 0.6, Neut % (Auto) 87.2 H, Lymph % (Auto) 6.1 L, [place] % (Auto) 5.8, Eos % (Auto) 0.2, Baso % (Auto) 0.1, Neut # (Auto) 12.6 H, Lymph # (Auto) 0.9, [place] # (Auto) 0.8, Eos # (Auto) 0.0, Baso # (Auto) 0.0, Immature Gran # (Auto) 0.1 ASSESSMENT: Please see below. 1. 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 Atrial flutter/fib 3. Coronary bypass surgery 4. C of the lung with status post radiation 5. Diabetes Mellitus PLAN: 1. Continue steroids and NEBS 2. Encourage the patient to eat 3. Counseling for smoking done 4. Hospice discussed yesterday with the patient 5. Continue same management for now 6. Resume Coumadin today Plan and coordination of the patient's care discussed in the presence of Automatic Clipper and nurse. SCRIBED BY: Geoffrey GUADALUPE scribed while in presence of service performed by Dr. SAMUEL BELLO on 10/24/21 ([id number])
[2021-10-24] MEDS: HUMULIN R SUBCUT PRN ×3 (12:12→21:29)
[2021-10-24] MEDS: COUMADIN PO SCH (17:15)
[2021-10-24] MEDS: SENNA PO SCH (20:41)
[2021-10-24] MEDS: ZOCOR PO SCH (20:42)
[2021-10-24] MEDS: XANAX PO SCH (20:42)
[2021-10-24] MEDS: COLACE PO SCH (20:42)
[2021-10-25] MEDS: MORPHINE 2 MG/ML VIAL IVP PRN ×3 (04:01→19:37)
[2021-10-25] MEDS: ATROVENT HFA INHALER (PER PUFF-WITH SPACER) IH SCH ×3 (04:50→19:40)
[2021-10-25] MEDS: VENTOLIN HFA (PER PUFF-WITH SPACER) IH SCH ×3 (04:50→19:40)
[2021-10-25] MEDS: DECADRON IM SCH (09:30)
[2021-10-25] MEDS: LANOXIN PO SCH (09:30)
[2021-10-25] MEDS: NEURONTIN PO PRN (09:31)
[2021-10-25] MEDS: LEXAPRO PO SCH (09:31)
[2021-10-25] MEDS: NORCO 5-325 PO SCH ×2 (09:31→21:31)
[2021-10-25] MEDS: MEGACE PO SCH ×2 (09:31→21:00)
[2021-10-25] MEDS: CALAN SR PO SCH ×2 (09:31→20:59)
[2021-10-25] MEDS: SYMBICORT 160-4.5 MCG INHALER IH SCH ×2 (09:32→21:32)
[2021-10-25] MEDS: LANTUS SUBCUT SCH (09:38)
[2021-10-25] MEDS: HUMULIN R SUBCUT PRN ×2 (11:22→16:45)
[2021-10-25] MEDS: COUMADIN PO SCH (16:46)
[2021-10-25] MEDS ORDERED: HUMULIN R SUBCUT STA (20:39)
[2021-10-25] MEDS: COLACE PO SCH (21:00)
[2021-10-25] MEDS: SENNA PO SCH (21:00)
[2021-10-25] MEDS: XANAX PO SCH (21:00)
[2021-10-25] MEDS: ZOCOR PO SCH (21:00)
[2021-10-26] MEDS: ATROVENT HFA INHALER (PER PUFF-WITH SPACER) IH SCH ×3 (05:05→19:20)
[2021-10-26] MEDS: VENTOLIN HFA (PER PUFF-WITH SPACER) IH SCH ×3 (05:05→19:20)
[2021-10-26] MEDS: LEXAPRO PO SCH (09:09)
[2021-10-26] MEDS: CALAN SR PO SCH ×2 (09:09→20:12)
[2021-10-26] MEDS: MEGACE PO SCH ×2 (09:09→20:12)
[2021-10-26] MEDS: NORCO 5-325 PO SCH ×2 (09:10→20:12)
[2021-10-26] MEDS: LANOXIN PO SCH (09:10)
[2021-10-26] MEDS: DECADRON IM SCH (09:11)
[2021-10-26] MEDS: LANTUS SUBCUT SCH (09:11)
[2021-10-26] MEDS: SYMBICORT 160-4.5 MCG INHALER IH SCH ×2 (09:13→20:13)
[2021-10-26] MEDS: HUMULIN R SUBCUT PRN ×3 (12:01→20:09)
[2021-10-26] MEDS: MORPHINE 2 MG/ML VIAL IVP PRN ×3 (12:06→19:21)
[2021-10-26] MEDS: COUMADIN PO SCH (17:46)
[2021-10-26] MEDS: ZOCOR PO SCH (20:12)
[2021-10-26] MEDS: SENNA PO SCH (20:12)
[2021-10-26] MEDS: COLACE PO SCH (20:13)
[2021-10-26] MEDS: XANAX PO SCH (20:13)
[2021-10-27] MEDS: ATROVENT HFA INHALER (PER PUFF-WITH SPACER) IH SCH ×3 (04:35→20:10)
[2021-10-27] MEDS: VENTOLIN HFA (PER PUFF-WITH SPACER) IH SCH ×3 (04:35→20:10)
[2021-10-27] MEDS: HUMULIN R SUBCUT PRN ×4 (06:28→20:16)
[2021-10-27] MEDS: MORPHINE 2 MG/ML VIAL IVP PRN ×4 (08:11→19:11)
[2021-10-27 08:16] LABS: BASOPHILS % (AUTO) 0.1 % (0.0-3.0); EOSINOPHILS % (AUTO) 0.1 % (0.0-7.0); HEMATOCRIT 35.9 % (37.0-47.0); HEMOGLOBIN 11.2 g/dl (12.0-16.0); IMMATURE GRANULOCYTE # (AUTO) 0.2 (0.0-1.0); IMMATURE GRANULOCYTE % (AUTO) 1.3 % (0.0-5.0); LYMPHOCYTES # (AUTO) 1.3 K/uL (0.60-3.4); LYMPHOCYTES % (AUTO) 9.3 (10.0-50.0); MEAN CORPUSCULAR HEMOGLOBIN 27.3 pg (27.0-31.0); MEAN CORPUSCULAR HGB CONC 31.2 (31.8-35.4); MEAN CORPUSCULAR VOLUME 87.6 fl (81.0-99.0); MONOCYTES # (AUTO) 0.8 K/uL (0.4-2.0); MONOCYTES % (AUTO) 6.1 (0-10); NEUTROPHILS # (AUTO) 11.4 K/ul (2.0-6.9); NEUTROPHILS % (AUTO) 83.1 % (42.2-75.2); PLATELET COUNT 277 10^3/uL (140-440); RDW COEFFICIENT OF VARIATION 13.9 % (11.6-14.8); WHITE BLOOD COUNT 13.72 K/ul (4.6-10.2)
[2021-10-27 08:37] LABS: ALBUMIN 3.2 g/dL (3.5-5.0); BILIRUBIN,TOTAL 0.4 mg/dL (0.2-1.3); CALCIUM 8.7 mg/dL (8.4-10.2); CREATININE 0.5 mg/dL (0.60-1.30); POTASSIUM 4.1 mmol/L (3.5-5.1); TOTAL PROTEIN 6.2 g/dL (6.3-8.2)
[2021-10-27 08:47] LABS: PROTHROMBIN TIME 22.5 SEC (9.3-11.0)
--- NOTE | 2021-10-27 09:33 | PCM.PROG ---
Attending Provider: ATTENDING PROVIDER: Dr. SAMUEL BELLO This patient is seen with Lashawn Austin, Nurse Practitioner. DATE OF SERVICE: 10/27/21 SUBJECTIVE: This 86 year old /WHITE F was hospitalized 10/21/21. The patient is resting comfortably. Morphine has really helped to control her pain and r espiratory. The patient and the family are agreeable to go home on Hospice. We will anticipate possible discharge home tomorrow. It is our recommendation she receive 24 hour care at home. REVIEW OF SYSTEMS: CONSTITUTIONAL: No night sweats. No fatigue, malaise, lethargy. No fever or chills. Weakness. HEENT: Eyes: No visual changes. No eye pain. No eye discharge. ENT: No runny nose. No epistaxis. No sinus pain. No odynophagia. No congestion. RESPIRATORY: Cough, no congestion. No hemoptysis. Shortness of breath. CARDIOVASCULAR: No angina symptoms. No CHF symptoms. No atypical chest pain for CAD. No palpitations. No orthopnea.. GASTROINTESTINAL: No abdominal pain. No nausea or vomiting. No diarrhea or constipation. No hematemesis. No hematochezia. GENITOURINARY: No urgency. No frequency. No dysuria. No hematuria. No obstructive symptoms. No discharge. No pain. No significant abnormal bleeding. MUSCULOSKELETAL: No musculoskeletal pain; no joint swelling. NEUROLOGICAL: Awake, alert, oriented to time, place and person. No headache. No neck pain. No syncope. No seizures. No dizziness. PSYCHIATRIC: Not anxious. No depression. No suicidal thoughts. No homicidal thoughts. SKIN: No rash. No lesions. No wounds. ENDOCRINE: No unexplained weight loss. No weight gain. HEMATOLOGIC/LYMPHATIC: No anemia. No purpura. No petechiae. No prolonged or excessive bleeding. No palpable lymph nodes. PHYSICAL EXAMINATION: GENERAL: The patient is awake, alert and oriented, sitting in bed in no distress. VITAL SIGNS: Temperature 98.6 F, Pulse 126, Respiratory Rate 20, BP 146/76, Pulse Ox 98% HEENT: Head normocephalic, atraumatic. Eyes: Extraocular muscles are intact. Pupils are equal, round and reactive to light and accommodation. Ears: No lesions. Nose appeared normal. Throat: No exudate or erythema. NECK: Supple. No JVD, no carotid bruit. No lymphadenopathy or thyromegaly. LUNGS: Severely diminished breath sounds. Bilateral wheezing. Clear to auscultation. Percussion note normal. Chest symmetrical. HEART: S1, S2, no S3. No murmurs. Irregular heart rate. No cyanosis or clubbing. No ascites. Pulses: Dorsalis pedis and posterior tibial pulses +1 to +2 both sides. ABDOMEN: Soft. Non-tender. Bowel sounds active. No CVA tenderness. No mass felt. EXTREMITIES: Trace edema. Full range of motion of all extremities, equal. NEUROLOGIC: No focal deficit. Cranial nerves II through XII are grossly intact. No headache. No double vision. SKIN: Not dry. Intact. Turgor-normal. LYMPHATIC: No palpable lymph nodes/no lymphedema. MUSCULOSKELETAL: Normal joints with no swelling. Muscle tone is normal. LAB REVIEW: 10/27/21 08:07 10/27/21 08:07 10/27/21 08:07: Sodium 136.0, Potassium 4.10, Chloride 101.0, Carbon Dioxide 33.0 H, Anion Gap 6.10, BUN 21.0 H, Creatinine 0.50 L, Estimated GFR (MDRD) 117.00, BUN/Creatinine Ratio 42.00, Glucose 118.0 H, Calcium 8.70, Total Bilirubin 0.40, AST 75.0 H, ALT 92.0 H, Alkaline Phosphatase 165.0 H, Total Protein 6.20 L, Albumin 3.20 L, Globulin 3.00, Albumin/Globulin Ratio 1.06 10/27/21 08:07: WBC 13.72 H, RBC 4.10 L, Hgb 11.2 L, Hct 35.9 L, MCV 87.6, MCH 27.3, MCHC 31.2 L, RDW Coeff of Leland 13.9, Plt Count 277, Immature Gran % (Auto) 1.3, Neut % (Auto) 83.1 H, Lymph % (Auto) 9.3 L, [place] % (Auto) 6.1, Eos % (Auto) 0.1, Baso % (Auto) 0.1, Neut # (Auto) 11.4 H, Lymph # (Auto) 1.3, [place] # (Auto) 0.8, Eos # (Auto) 0.0, Baso # (Auto) 0.0, Immature Gran # (Auto) 0.2 ASSESSMENT: Please see below. 1. Failure to thrive 2. End stage COPD with Chronic respiratory failure 3. Atrial fibrillation 4. Diabetes Mellitus type II 5. Generalized weakness. f PLAN: 1. Possible discharge tomorrow 2. Continue all medications. Plan and coordination of the patient's care discussed in the presence of Catering Associate and nurse. SCRIBED BY: Geoffrey GUADALUPE scribed while in presence of service performed by Dr. Bello/Lashawn Austin APRN on 10/27/21 ([id number])
[2021-10-27] MEDS: LEXAPRO PO SCH (09:37)
[2021-10-27] MEDS: NORCO 5-325 PO SCH ×2 (09:37→20:10)
[2021-10-27] MEDS: CALAN SR PO SCH ×2 (09:37→20:09)
[2021-10-27] MEDS: MEGACE PO SCH ×2 (09:37→20:09)
[2021-10-27] MEDS: LANOXIN PO SCH (09:37)
[2021-10-27] MEDS: SYMBICORT 160-4.5 MCG INHALER IH SCH ×2 (09:38→21:36)
[2021-10-27] MEDS: LANTUS SUBCUT SCH (09:38)
[2021-10-27] MEDS: DECADRON IM SCH (09:39)
--- NOTE | 2021-10-27 14:22 | ECHO2D ---
Date of Exam: 10/26/2021 Ordering Physician: DR. SAMUEL BELLO Room #: 110 Reason for Echo: SOB, EDEMA, CAD, COPD, [id number] M-Mode Normal Adult Results LV Dimensions Normal Adult Results AoV Opening excursions >1.6 >1.6 LVEDD-base- 3.5-5.8 3.4 Ao root dimensions 2.0-3.7 2.8 LVESD-base- 3.1-4.6 L. Atrium dimensions 1.9-3.8 3.7 Post. Wall thickness 0.8-1.1 1.0 IV septum (thickness) 0.7-1.2 0.9 Post. Wall excursion 0.72-1.3 NORMAL Septal motion NORMAL Systolic motion R. Ventricular cavity 1.5-2.0 3.0 LVEF 60% 67% Paradoxical septal wall motion NORMAL 2-D : MITRAL VALVE PROLAPSE LATE SYSTOLIC NOTED WITH APICAL FOUR CHAMBER VIEW AND LEFT PARASTERNAL LONG AXIS. Tricuspid and aortic valves appear to be normal. Contractility of the left ventricle seems to be normal, so is the cavity size. LEFT ATRIAL CAVITY SIZE ENLARGED Aortic root appears to be normal. There is no pericardial effusion. There is no thrombus noted in the left ventricle or left atrial cavity. M-MODE: MV: MITRAL VALVE PROLAPSE LATE SYSTOLIC AV: NORMAL TV: NORMAL PV: CHAMBER SIZE: RIGHT VENTRICLE CAVITY ENLARGED WALL MOTION: NORMAL PERICARDIUM: NORMAL INTERPRETATION: 1. MITRAL VALVE PROLAPSE LATE SYSTOLIC 2. NORMAL LEFT VENTRICLE CONTRACTILITY 3. NORMAL LEFT VENTRICLE SIZE 4. RIGHT VENTRICLE CAVITY ENLARGED MTDD
[2021-10-27] MEDS: COUMADIN PO SCH (17:51)
[2021-10-27] MEDS: SENNA PO SCH (20:09)
[2021-10-27] MEDS: XANAX PO SCH (20:09)
[2021-10-27] MEDS: COLACE PO SCH (20:09)
[2021-10-27] MEDS: ZOCOR PO SCH (20:10)
[2021-10-28] MEDS: MORPHINE 2 MG/ML VIAL IVP PRN ×3 (01:23→13:41)
[2021-10-28] MEDS: ATROVENT HFA INHALER (PER PUFF-WITH SPACER) IH SCH (04:30)
[2021-10-28] MEDS: VENTOLIN HFA (PER PUFF-WITH SPACER) IH SCH (04:30)
[2021-10-28 05:18] LABS: BASOPHILS % (AUTO) 0.3 % (0.0-3.0); EOSINOPHILS % (AUTO) 0.2 % (0.0-7.0); HEMATOCRIT 32.7 % (37.0-47.0); HEMOGLOBIN 10.2 g/dl (12.0-16.0); IMMATURE GRANULOCYTE # (AUTO) 0.3 (0.0-1.0); IMMATURE GRANULOCYTE % (AUTO) 2.4 % (0.0-5.0); LYMPHOCYTES # (AUTO) 1.1 K/uL (0.60-3.4); LYMPHOCYTES % (AUTO) 8.7 (10.0-50.0); MEAN CORPUSCULAR HEMOGLOBIN 27.6 pg (27.0-31.0); MEAN CORPUSCULAR HGB CONC 31.2 (31.8-35.4); MEAN CORPUSCULAR VOLUME 88.6 fl (81.0-99.0); MONOCYTES # (AUTO) 0.8 K/uL (0.4-2.0); MONOCYTES % (AUTO) 6.7 (0-10); NEUTROPHILS # (AUTO) 9.9 K/ul (2.0-6.9); NEUTROPHILS % (AUTO) 81.7 % (42.2-75.2); PLATELET COUNT 253 10^3/uL (140-440); RDW COEFFICIENT OF VARIATION 13.9 % (11.6-14.8); RED BLOOD COUNT 3.69 10^6/ul (4.20-5.40); WHITE BLOOD COUNT 12.08 K/ul (4.6-10.2)
[2021-10-28 05:32] LABS: ALANINE AMINOTRANSFERASE 76.2 U/L (0-35); ALBUMIN 2.93 g/dL (3.5-5.0); ALKALINE PHOSPHATASE 138.5 U/L (53-141); ASPARTATE AMINO TRANSFERASE 48.7 U/L (14-36); BILIRUBIN,TOTAL 0.3 mg/dL (0.2-1.3); BLOOD UREA NITROGEN 16.4 mg/dL (7-17); CALCIUM 8.53 mg/dL (8.4-10.2); CARBON DIOXIDE 32.2 mmol/L (22-30.0); CHLORIDE 103.6 mmol/L (98-107); CREATININE 0.51 mg/dL (0.60-1.30); GLUCOSE 92.8 mg/dL (74-106); POTASSIUM 4.2 mmol/L (3.5-5.1); SODIUM 135.9 mmol/L (134.5-145); TOTAL PROTEIN 5.49 g/dL (6.3-8.2)
[2021-10-28 05:39] VITALS: BP 136/68; TEMP 98.6
[2021-10-28] MEDS: LANOXIN PO SCH (08:43)
[2021-10-28] MEDS: LEXAPRO PO SCH (08:44)
[2021-10-28] MEDS: MEGACE PO SCH (08:44)
[2021-10-28] MEDS: DECADRON IM SCH (08:44)
[2021-10-28] MEDS: CALAN SR PO SCH (08:44)
[2021-10-28] MEDS: SYMBICORT 160-4.5 MCG INHALER IH SCH (08:45)
[2021-10-28] MEDS: NORCO 5-325 PO SCH (08:45)
[2021-10-28] MEDS: LANTUS SUBCUT SCH (08:45)
--- NOTE | 2021-10-28 09:47 | PCM.PROG ---
Attending Provider: ATTENDING PROVIDER: Dr. SAMUEL BELLO This patient is seen with Lashawn Austin, Nurse Practitioner. DATE OF SERVICE: 10/28/21 SUBJECTIVE: This 86 year old /WHITE F was hospitalized 10/21/21. The patient is to be discharged today with Hospice. The patient and family are agreeable. The patient's pain is controlled with Morphine ever 2-3 hours. REVIEW OF SYSTEMS: CONSTITUTIONAL: No night sweats. No fatigue, malaise, lethargy. No fever or chills. Weakness. HEENT: Eyes: No visual changes. No eye pain. No eye discharge. ENT: No runny nose. No epistaxis. No sinus pain. No odynophagia. No congestion. RESPIRATORY: No cough, no congestion. No hemoptysis. Shortness of breath. CARDIOVASCULAR: No angina symptoms. No CHF symptoms. No atypical chest pain for CAD. No palpitations. No orthopnea.. GASTROINTESTINAL: No abdominal pain. No nausea or vomiting. No diarrhea or constipation. No hematemesis. No hematochezia. GENITOURINARY: No urgency. No frequency. No dysuria. No hematuria. No obstructive symptoms. No discharge. No pain. No significant abnormal bleeding. MUSCULOSKELETAL: No musculoskeletal pain; no joint swelling. NEUROLOGICAL: Awake, alert, oriented to time, place and person. No headache. No neck pain. No syncope. No seizures. No dizziness. PSYCHIATRIC: Not anxious. No depression. No suicidal thoughts. No homicidal thoughts. SKIN: No rash. No lesions. No wounds. ENDOCRINE: No unexplained weight loss. No weight gain. HEMATOLOGIC/LYMPHATIC: No anemia. No purpura. No petechiae. No prolonged or excessive bleeding. No palpable lymph nodes. PHYSICAL EXAMINATION: GENERAL: The patient is awake, alert and oriented, lying in bed in no distress. VITAL SIGNS: Temperature 98.6 F, Pulse 102, Respiratory Rate 20, BP 136/68, Pulse Ox 97% HEENT: Head normocephalic, atraumatic. Eyes: Extraocular muscles are intact. Pupils are equal, round and reactive to light and accommodation. Ears: No lesions. Nose appeared normal. Throat: No exudate or erythema. NECK: Supple. No JVD, no carotid bruit. No lymphadenopathy or thyromegaly. LUNGS: Clear to auscultation. Bilateral wheezing. Percussion note normal. Chest symmetrical. HEART: S1, S2, no S3. No murmurs. Irregular heart rate. No cyanosis or clubbi ng. No ascites. Pulses: Dorsalis pedis and posterior tibial pulses +1 to +2 both sides. ABDOMEN: Soft. Non-tender. Bowel sounds active. No CVA tenderness. No mass felt. EXTREMITIES: No edema. Full range of motion of all extremities, equal. NEUROLOGIC: No focal deficit. Cranial nerves II through XII are grossly intact. No headache. No double vision. SKIN: Not dry. Intact. Turgor-normal. LYMPHATIC: No palpable lymph nodes/no lymphedema. MUSCULOSKELETAL: Normal joints with no swelling. Muscle tone is normal. LAB REVIEW: 10/28/21 05:00 10/28/21 05:00 10/28/21 05:00: Sodium 135.9, Potassium 4.20, Chloride 103.6, Carbon Dioxide 32.2 H, Anion Gap 4.30, BUN 16.4, Creatinine 0.51 L, Estimated GFR (MDRD) 114.00, BUN/Creatinine Ratio 32.15, Glucose 92.8, Calcium 8.53, Total Bilirubin 0.30, AST 48.7 H D, ALT 76.2 H, Alkaline Phosphatase 138.5 D, Total Protein 5.49 L, Albumin 2.93 L, Globulin 2.56, Albumin/Globulin Ratio 1.14 10/28/21 05:00: PT 27.0 H, INR 2.73 10/28/21 05:00: WBC 12.08 H, RBC 3.69 L, Hgb 10.2 L, Hct 32.7 L, MCV 88.6, MCH 27.6, MCHC 31.2 L, RDW Coeff of Leland 13.9, Plt Count 253, Immature Gran % (Auto) 2.4, Neut % (Auto) 81.7 H, Lymph % (Auto) 8.7 L, [place] % (Auto) 6.7, Eos % (Auto) 0.2, Baso % (Auto) 0.3, Neut # (Auto) 9.9 H, Lymph # (Auto) 1.1, [place] # (Auto) 0.8, Eos # (Auto) 0.0, Baso # (Auto) 0.0, Immature Gran # (Auto) 0.3 10/27/21 08:07: Sodium 136.0, Potassium 4.10, Chloride 101.0, Carbon Dioxide 33.0 H, Anion Gap 6.10, BUN 21.0 H, Creatinine 0.50 L, Estimated GFR (MDRD) 117.00, BUN/Creatinine Ratio 42.00, Glucose 118.0 H, Calcium 8.70, Total Bilirubin 0.40, AST 75.0 H, ALT 92.0 H, Alkaline Phosphatase 165.0 H, Total Protein 6.20 L, Albumin 3.20 L, Globulin 3.00, Albumin/Globulin Ratio 1.06 10/27/21 08:07: PT 22.5 H, INR 2.24 10/27/21 08:07: WBC 13.72 H, RBC 4.10 L, Hgb 11.2 L, Hct 35.9 L, MCV 87.6, MCH 27.3, MCHC 31.2 L, RDW Coeff of Leland 13.9, Plt Count 277, Immature Gran % (Auto) 1.3, Neut % (Auto) 83.1 H, Lymph % (Auto) 9.3 L, [place] % (Auto) 6.1, Eos % (Auto) 0.1, Baso % (Auto) 0.1, Neut # (Auto) 11.4 H, Lymph # (Auto) 1.3, [place] # (Auto) 0.8, Eos # (Auto) 0.0, Baso # (Auto) 0.0, Immature Gran # (Auto) 0.2 ASSESSMENT: Please see below. 1. Chronic respiratory failure 2. Atrial fibrillation 3. End stage COPD 4. Failure to thrive PLAN: 1. The patient will begin Hospice, they are meeting her at home this afternoone 2. Prednisone 10mg daily 3. Resume sliding scale for insulin 4. Continue Coumadin 5. Continue NEBS at home 6. Will followup with her as needed. Plan and coordination of the patient's care discussed in the presence of Administrative Nursing Supervisor and nurse. SCRIBED BY: ISH MONROY Licensing Worker scribed while in presence of service performed by Dr. Bello/Lashawn Austin APRN on 10/28/21 (0800)
--- NOTE | 2021-10-28 09:50 | DS ---
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 TUCKER/DR. SAN) HYPERTENSION CORONARY ARTERY DISEASE DYSLIPIDEMIA OSTEOPOROSIS OSTEOARTHRITIS, RIGHT KNEE NEUROPATHY COMPRESSION FRACTURE, T12 (2020) RECURRENT UTI EMPHYSEMATOUS CYSTITIS CONTINUED SMOKING NON-COMPLIANCE MEDS, DIET, LIFESTYLE CABG, 1997 HYSTERECTOMY COLONOSCOPY 2013 ECHOCARDIOGRAM: 10/26/2021 MITRAL VALVE PROLAPSE LATE SYSTOLIC LEFT ATRIAL ENLARGED, RIGHT VENTRICLE ENLARGED LVEF 67% LAST VITALS: Temp Pulse Resp BP Pulse Ox 98.6 F 105 H 20 136/68 97 10/28/21 05:37 10/28/21 08:43 10/28/21 05:37 10/28/21 05:37 10/28/21 05:37 DISCHARGE INSTRUCTIONS: DISCHARGE HOME TO BE FOLLOWED BY [facility]. [facility] REFERRAL. [facility] FOR MEDICATIONS TO EASE PAIN/ANXIETY/LABORED RESPIRATIONS. CONTINUE TO WEAR OXYGEN AT 2 LITERS CONTINUOUS. CONTINUE TO USE NEBULIZER TREATMENTS ORDERED. CONTINUE TO CHECK ACCU-CHECKS AT LEAST 3 TIMES DAILY. CONTINUE INSULIN INSTRUCTED. WOUND CARE TO LEFT FOREARM: CLEAN WITH NSS, APPLY KWAKU AND TELFA DRESSING. AN APPOINTMENT IS SCHEDULED WITH DR. BELLO/KEAGAN AHUMADA APRN/NADEEM TORO APRN ON October AT 10 AM (CALL IF YOU NEED TO CANCEL/RESCHEDULE). CODE STATUS: DO NOT RESUSCITATE. TAKE THESE MEDICATIONS AT HOME: Hydrocodone Bitart/Acetaminophen (Hydrocodone Bit/Acetaminophen 5/325 Mg Tablet) 1 tab PO BID [facility] Last Admin: 10/28/21 08:45 Dose: 1 tab Documented by: Alprazolam (Alprazolam 0.25 Mg Tablet) 0.25 mg PO BEDTIME [facility] Last Admin: 10/27/21 20:09 Dose: 0.25 mg Documented by: Digoxin (Digoxin 125 Mcg Tablet) 125 mcg PO DAILY [facility] Last Admin: 10/28/21 08:43 Dose: 125 mcg Documented by: Lasix 20 mg tablet take two times a week Last Admin: Potassium chloride 10 meq take two times a week (same day as Lasix) Last Admin: Escitalopram Oxalate (Escitalopram Oxalate 10 Mg Tablet) 15 mg PO DAILY [facility] Last Admin: 10/28/21 08:44 Dose: 15 mg Documented by: Gabapentin (Gabapentin 300 Mg Capsule) 300 mg PO BID PRN PRN Reason: NEUROPATHY; LEG AND FOOT PAIN Last Admin: 10/25/21 09:31 Dose: 300 mg Documented by: Insulin Glargine (Insulin Glargine,Hum.Rec.Anlog 100 Units/Ml) 12 unit SUBCUT DAILY [facility] Last Admin: 10/28/21 08:45 Dose: 12 unit Documented by: Insulin Human Regular (Insulin Regular, Human 100 Unit/Ml (3ml) Vial) continue sliding scale insulin as recommended by charge auditor PRN Reason: Hyperglycemia Last Admin: 10/27/21 20:16 Dose: 6 unit Documented by: Ipratropium-Albuterol 1 vial Nebulizer BID Last Admin: Pulmicort 0.5 mg BID per Nebulizer Last Admin: Megestrol Acetate (Megestrol Acetate 40 Mg Tablet) 40 mg PO BID [facility] Last Admin: 10/28/21 08:44 Dose: 40 mg Documented by: Prednisone (Prednisone 10 Mg Tablet) 10 mg PO DAILYWM [facility] Last Admin: 10/22/21 09:11 Dose: 10 mg Documented by: Sennosides-Docusate Sodium 1 tablet PO BEDTIME [facility] Last Admin: 10/27/21 20:09 Documented by: Verapamil HCl (Verapamil Hcl 180 Mg Tablet.Er) 180 mg PO BID [facility] Last Admin: 10/28/21 08:44 Dose: 180 mg Documented by: Warfarin Sodium (Warfarin Sodium 3 Mg Tablet) 3 mg PO QPM [facility] Last Admin: 10/27/21 17:51 Dose: 3 mg Documented by: ALLERGIES: fenofibrate nanocrystallized [From Tricor] Adverse Reaction (Verified 10/11/20 15:15) fenofibrate,micronized [From Tricor] Adverse Reaction (Verified 10/11/20 15:15) nitrofurantoin [From Macrobid] Adverse Reaction (Verified 05/13/21 16:49) Diarrhea DISCONTINUED MEDICATIONS: SIMVASTATIN 40 MG AT BEDTIME NEW PRESCRIPTIONS: [facility] for Medications for comfort/anxiety SMOKING: PATIENT HAS BEEN ENCOURAGED/ADVISED TO STOP SMOKING DISEASE SPECIFIC EDUCATION: HOSPICE PAIN CONTROL COPD/USE OF OXYGEN/NEBULIZER TREATMENTS NUTRITION LAB REVIEW: 10/28/21 05:00 10/28/21 05:00 10/28/21 05:00: Sodium 135.9, Potassium 4.20, Chloride 103.6, Carbon Dioxide 32.2 H, Anion Gap 4.30, BUN 16.4, Creatinine 0.51 L, Estimated GFR (MDRD) 114.00, BUN/Creatinine Ratio 32.15, Glucose 92.8, Calcium 8.53, Total Bilirubin 0.30, AST 48.7 H D, ALT 76.2 H, Alkaline Phosphatase 138.5 D, Total Protein 5.49 L, Albumin 2.93 L, Globulin 2.56, Albumin/Globulin Ratio 1.14 10/28/21 05:00: PT 27.0 H, INR 2.73 10/28/21 05:00: WBC 12.08 H, RBC 3.69 L, Hgb 10.2 L, Hct 32.7 L, MCV 88.6, MCH 27.6, MCHC 31.2 L, RDW Coeff of Leland 13.9, Plt Count 253, Immature Gran % (Auto) 2.4, Neut % (Auto) 81.7 H, Lymph % (Auto) 8.7 L, [place] % (Auto) 6.7, Eos % (Auto) 0.2, Baso % (Auto) 0.3, Neut # (Auto) 9.9 H, Lymph # (Auto) 1.1, [place] # (Auto) 0.8, Eos # (Auto) 0.0, Baso # (Auto) 0.0, Immature Gran # (Auto) 0.3 DIET: REGULAR DIET TOLERATED LIQUIDS: TOLERATED ACTIVITY: MAY BE UP WITH WALKER TOLERATED ENCOURAGED TO ELEVATE LEGS WHEN SITTING HOSPITAL COURSE: 86 year old white female who was admitted with atrial fibrillation with RVR and end stage COPD was initially given IV Digoxin and added Cardizem PO with steroids. Heart rate has improved some. RVR likely due to end stage pulmonary status. She is a [facility] smoker. Over the past several months she has had multiple hospitalizations for the same issue. Both the patient and family have agreed to be discharged home to Hospice. [facility] is to meet them at home today. She will continue with Coumadin and all other medications. She has been receiving Morphine for respiratory status and chronic pain, this will be continued with Hospice. She has oxygen and NEBS at home. She is stable for discharge with poor prognosis given her multiple medical conditions including atrial fibrillation, end stage COPD, Diabetes Mellitus type II and generalized weakness. TIME SPENT: More than 60 minutes. STEFANO
[2021-10-28] MEDS: HUMULIN R SUBCUT PRN (12:03)
--- NOTE | 2021-10-28 12:32 | CM.DICTOOL ---
ADMISSION: 10/21/21 15:54 DISCHARGE: OCTOBER 28, 2021 DATE OF SERVICE: 10/28/21 FINAL DIAGNOSIS ATRIAL FLUTTER/FIB WITH RVR CHRONIC RESPIRATORY FAILURE ACUTE COPD EXACERBATION LEG EDEMA CORRECTION ANTICOAGULANT USE (COUMADIN) FAILURE TO THRIVE UTI, RECENTLY TREATED (HISTORY OF ESBL) CHRONIC ANEMIA DEPRESSION END STAGE COPD; OXYGEN AND STEROID DEPENDENT DIABETES MELLITUS, TYPE 2 (A1C 8.1 June,) ANXIETY PERIPHERAL ARTERY DISEASE LUNG NODULE, RUL AND LLL (RADIATION/DR. TUCKER/DR. SAN) HYPERTENSION CORONARY ARTERY DISEASE DYSLIPIDEMIA OSTEOPORORSIS OSTEOARTHRITIS, RIGHT KNEE NEUROPATHY COMPRESSION FRACTURE, T12 (2020) RECURRENT UTI EMPHYSEMATOUS CYSTITIS CONTINUED SMOKING NON-COMPLIANCE MEDS, DIET, LIFESTYLE CABG, 1997 HYSTERECTOMY COLONOSCOPY 2013 ECHOCARDIOGRAM: 10/26/2021 MITRAL VALVE PROLAPSE LATE SYSTOLIC LEFT ATRIAL ENLARGED, RIGHT VENTRICLE ENLARGED LVEF 67% LAST VITALS Temp Pulse Resp BP Pulse Ox 98.6 F 105 H 20 136/68 97 10/28/21 05:37 10/28/21 08:43 10/28/21 05:37 10/28/21 05:37 10/28/21 05:37 TAKE THESE MEDICATIONS AT HOME Hydrocodone Bitart/Acetaminophen (Hydrocodone Bit/Acetaminophen 5/325 Mg Tablet) 1 tab PO BID [facility] Last Admin: 10/28/21 08:45 Dose: 1 tab Documented by: Alprazolam (Alprazolam 0.25 Mg Tablet) 0.25 mg PO BEDTIME [facility] Last Admin: 10/27/21 20:09 Dose: 0.25 mg Documented by: Digoxin (Digoxin 125 Mcg Tablet) 125 mcg PO DAILY [facility] Last Admin: 10/28/21 08:43 Dose: 125 mcg Documented by: Lasix 20 mg tablet take two times a week Last Admin: Potassium chloride 10 meq take two times a week (same day as Lasix) Last Admin: Escitalopram Oxalate (Escitalopram Oxalate 10 Mg Tablet) 15 mg PO DAILY [facility] Last Admin: 10/28/21 08:44 Dose: 15 mg Documented by: Gabapentin (Gabapentin 300 Mg Capsule) 300 mg PO BID PRN PRN Reason: NEUROPATHY; LEG AND FOOT PAIN Last Admin: 10/25/21 09:31 Dose: 300 mg Documented by: Insulin Glargine (Insulin Glargine,Hum.Rec.Anlog 100 Units/Ml) 12 unit SUBCUT DAILY [facility] Last Admin: 10/28/21 08:45 Dose: 12 unit Documented by: Insulin Human Regular (Insulin Regular, Human 100 Unit/Ml (3ml) Vial) continue sliding scale insulin as recommended by multimedia journalist PRN Reason: Hyperglycemia Last Admin: 10/27/21 20:16 Dose: 6 unit Documented by: Ipratropium-Albuterol 1 vial Nebulizer BID Last Admin: Pulmicort 0.5 mg BID per Nebulizer Last Admin: Megestrol Acetate (Megestrol Acetate 40 Mg Tablet) 40 mg PO BID [facility] Last Admin: 10/28/21 08:44 Dose: 40 mg Documented by: Prednisone (Prednisone 10 Mg Tablet) 10 mg PO DAILYWM [facility] Last Admin: 10/22/21 09:11 Dose: 10 mg Documented by: Sennosides-Docusate Sodium 1 tablet PO BEDTIME [facility] Last Admin: 10/27/21 20:09 Documented by: Verapamil HCl (Verapamil Hcl 180 Mg Tablet.Er) 180 mg PO BID [facility] Last Admin: 10/28/21 08:44 Dose: 180 mg Documented by: Warfarin Sodium (Warfarin Sodium 3 Mg Tablet) 3 mg PO QPM [facility] Last Admin: 10/27/21 17:51 Dose: 3 mg Documented by: ALLERGIES fenofibrate nanocrystallized [From Tricor] Adverse Reaction (Verified 10/11/20 15:15) fenofibrate,micronized [From Tricor] Adverse Reaction (Verified 10/11/20 15:15) nitrofurantoin [From Macrobid] Adverse Reaction (Verified 05/13/21 16:49) Diarrhea DISCONTINUED MEDICATIONS SIMVASTATIN 40 MG AT BEDTIME NEW PRESCRIPTIONS: [facility]ations for comfort/anxiety SMOKING: PATIENT HAS BEEN ENCOURAGED/ADVISED TO STOP SMOKING DISEASE SPECIFIC EDUCATION: HOSPICE PAIN CONTROL COPD/USE OF OXYGEN/NEBULIZER TREATMENTS NUTRITION LAB REVIEW: 10/28/21 05:00 10/28/21 05:00 10/28/21 05:00: Sodium 135.9, Potassium 4.20, Chloride 103.6, Carbon Dioxide 32.2 H, Anion Gap 4.30, BUN 16.4, Creatinine 0.51 L, Estimated GFR (MDRD) 114.00, BUN/Creatinine Ratio 32.15, Glucose 92.8, Calcium 8.53, Total Bilirubin 0.30, AST 48.7 H D, ALT 76.2 H, Alkaline Phosphatase 138.5 D, Total Protein 5.49 L, Albumin 2.93 L, Globulin 2.56, Albumin/Globulin Ratio 1.14 10/28/21 05:00: PT 27.0 H, INR 2.73 10/28/21 05:00: WBC 12.08 H, RBC 3.69 L, Hgb 10.2 L, Hct 32.7 L, MCV 88.6, MCH 27.6, MCHC 31.2 L, RDW Coeff of Leland 13.9, Plt Count 253, Immature Gran % (Auto) 2.4, Neut % (Auto) 81.7 H, Lymph % (Auto) 8.7 L, [place] % (Auto) 6.7, Eos % (Auto) 0.2, Baso % (Auto) 0.3, Neut # (Auto) 9.9 H, Lymph # (Auto) 1.1, [place] # (Auto) 0.8, Eos # (Auto) 0.0, Baso # (Auto) 0.0, Immature Gran # (Auto) 0.3 PLAN: DISCHARGE HOME TO BE FOLLOWED BY [facility] DIET: REGULAR DIET TOLERATED LIQUIDS: TOLERATED ACTIVITY: MAY BE UP WITH WALKER TOLERATED ENCOURAGED TO ELEVATE LEGS WHEN SITTING [facility] REFERRAL [facility] FOR MEDICATIONS TO EASE PAIN/ANXIETY/LABORED RESPIRATIONS CONTINUE TO WEAR OXYGEN AT 2 LITERS CONTINUOUS CONTINUE TO USE NEBULIZER TREATMENTS ORDERED CONTINUE TO CHECK ACCU-CHECKS AT LEAST 3 TIMES DAILY CONTINUE INSULIN INSTRUCTED WOUND CARE TO LEFT FOREARM: CLEAN WITH NSS, APPLY [place] AND TELFA DRESSING AN APPOINTMENT IS SCHEDULED WITH DR. BELLO/KEAGAN AHUMADA APRN/NADEEM TORO APRN ON October AT 10 AM (CALL IF YOU NEED TO CANCEL/RESCHEDULE) CODE STATUS: DO NOT RESUSCITATE MRS. HINOJOSA IS ALERT AND ORIENTED X 4. SHE IS FORGETFUL AT TIMES. SHE IS AWARE AND AGREEABLE WITH PLANS FOR DISCHARGE HOME TODAY. MRS. HINOJOSA LIVES WITH HER , PING AND TEENAGE GRANDDAUGHTER. THE DAUGHTER, HOMA IS VERY INVOLVED IN THE CARE OF MRS. HINOJOSA. AFTER DISCUSSION, THE PATIENT AND DAUGHTER REQUESTED A REFERRAL TO [facility]; THE PATIENT WILL BE SEEN BY HOSPICE TODAY AT 3 PM. A HOSPITAL BED, OXYGEN AND OTHER REQUESTED EQUIPMENT HAS BEEN DELIVERED TO THE HOME BY HOSPICE. ARRANGEMENTS ARE BEING MADE BY THE DAUGHTER TO EMPLOY CAREGIVERS IN THE HOME DURING THE DAY/NIGHT FROM A PRIVATE SERVICE. SHE IS ALSO AVAILABLE TO ASSIST NEEDED. MRS. HINOJOSA IS INDEPENDENT WITH FEEDING. HER APPETITE VARIES, BUT IS RANGING FROM 50-75%. LIQUID INTAKE IS GOOD. SHE IS CONTINENT OF BOWEL AND BLADDER, BUT DOES EXPERIENCE URINARY DRIBBLING THAT REQUIRES USE OF DEPENDS UNDERGARMENTS. SHE IS AMBULATORY WITH CGA, USE OF A ROLLATOR AND OXYGEN SHORT DISTANCES (10 FEET) AND TO THE BATHROOM. SHE IS REQUIRING REST PERIODS WITH SHORT DISTANCE AMBULATION DUE TO SHORTNESS OF AIR. GAIT IS SLOW. MRS. HINOJOSA REQUIRES ASSISTANCE WITH PERSONAL CARE/DRESSING. MRS. HINOJOSA IS THIN, FRAIL LOOKING IN APPEARANCE. HER SKIN IS THIN WITH A SKIN TEAR TO THE LEFT FOREARM AND NUMEROUS SCATTERED AREAS OF BRUISING TO THE UPPER AND LOWER EXTREMITIES. MD KEAGAN HENRIQUEZ APRN
--- NOTE | 2021-10-29 11:44 | PN ---
DATE OF SERVICE: 10/23/2021 SUBJECTIVE: The patient was seen and examined with the Nurse Practitioner. The patient's condition has been stable in a way but has a lot of end stage medical problems like severe chronic lung disease with history of C of the lung with status post radiation with continued smoking. Also has SVT which seems to be under control with sinus rhythm. The patient is short of breath on minimal exertion. The patient has been on maximum medication. Hospice discussed with the patient. TIME SPENT: More than 30 minutes. Plan and coordination of the patient's care discussed in the presence of nurse. STEFANO
--- NOTE | 2021-10-29 12:43 | PN ---
DATE OF SERVICE: 10/26/2021 SUBJECTIVE: 86 year old white female hospitalized with atrial flutter with fast ventricular response. Shortness of breath, chronic cough and cachexia. The patient says that she is feeling a lot better. She ate all the breakfast this morning. Her sugar was 600 she was given 20 units of regular insulin. REVIEW OF SYSTEMS: CONSTITUTIONAL: No night sweats. No fatigue, malaise, lethargy. No fever or chills. HEENT: Eyes: No visual changes. No eye pain. No eye discharge. ENT: No runny nose. No epistaxis. No sinus pain. No sore throat. No odynophagia. No congestion. RESPIRATORY: No cough, no congestion. No hemoptysis. Shortness of breath on exertion. CARDIOVASCULAR: No angina symptoms. No CHF symptoms. No atypical chest pain for CAD. No palpitations. No PND. No orthopnea. GASTROINTESTINAL: No abdominal pain. No nausea or vomiting. No diarrhea or constipation. No hematemesis. No hematochezia. Appetite has improved remarkably. GENITOURINARY: No urgency. No frequency. No dysuria. No hematuria. No obstructive symptoms. No discharge. No pain. No significant abnormal bleeding. MUSCULOSKELETAL: No musculoskeletal pain; no joint swelling. NEUROLOGICAL: No headache. No neck pain. No syncope. No seizures. No dizziness. PSYCHIATRIC: Not anxious. No depression. No suicidal thoughts. No homicidal thoughts. SKIN: No rash. No lesions. No wounds. ENDOCRINE: No unexplained weight loss. No weight gain. HEMATOLOGIC/LYMPHATIC: No anemia. No purpura. No petechiae. No prolonged or excessive bleeding. No palpable lymph nodes. PHYSICAL EXAMINATION: VITAL SIGNS: Temperature 98.4, pulse 84, respiratory rate 18, blood pressure 125/63 and pulse ox 99% with 2 liters. HEENT: Head normocephalic, atraumatic. Eyes: Extraocular muscles are intact. Pupils are equal, round and reactive to light and accommodation. Ears: No lesions. Nose appeared normal. Throat: No exudate or erythema. NECK: Supple. No JVD, no carotid bruit. No lymphadenopathy or thyromegaly. LUNGS: Decreased breath sounds. Clear to auscultation. Percussion note normal. Chest symmetrical. HEART: S1, S2, no S3. No murmurs. No cyanosis or clubbing. No ascites. Pulses: Dorsalis pedis and posterior tibial pulses +1 to +2 bilaterally. ABDOMEN: Soft. Nontender. Bowel sounds active. No CVA tenderness. No mass felt. EXTREMITIES: No edema. Full range of motion of all extremities, equal. NEUROLOGIC: No focal deficit. Cranial nerves II through XII are grossly intact. No headache. No double vision. SKIN: Not dry. Intact. Turgor - normal. LYMPHATIC: No palpable lymph nodes/no lymphedema. MUSCULOSKELETAL: Normal joints with no swelling. Muscle tone is normal. ASSESSMENT: 1. Atrial flutter/fib with varying ventricular response. The rate was fast but now at the time when I was doing the echo it slowed down 2. Respiratory insufficiency with severe chronic lung disease with history of C of the lung post radiation 3. Coronary bypass surgery 4. Diabetes mellitus PLAN: 1. Continue Low dose steroids 2. Continue NEBS 3. Continue Pro Air HFA 4. Lanoxin PO 5. Dexamethasone daily 6. Sliding scale 7. Regular insulin 8. Continue Simvastatin, Verapamil and Coumadin TIME SPENT: More than 30 minutes. Plan and coordination of the patient's care discussed in the presence of nurse. STEFANO
--- NOTE | 2021-10-30 14:52 | PN ---
DATE OF SERVICE: 10/25/2021 SUBJECTIVE: 86 year old white female hospitalized with atrial flutter/fib with rapid ventricular response, shortness of breath, cough and congestion chronic with end stage COPD. Condition has improved to some extent. Her appetite is somewhat better. She has been Morphine requiring every so often. This morning she has been able to tolerate oral medication with Gabapentin and not asking for any Morphine Sulfate. REVIEW OF SYSTEMS: CONSTITUTIONAL: No night sweats. No fatigue, malaise, lethargy. No fever or chills. HEENT: Eyes: No visual changes. No eye pain. No eye discharge. ENT: No runny nose. No epistaxis. No sinus pain. No sore throat. No odynophagia. No congestion. RESPIRATORY: No cough, no congestion. No hemoptysis. No shortness of breath. CARDIOVASCULAR: No angina symptoms. No CHF symptoms. No atypical chest pain for CAD. No palpitations. No PND. No orthopnea. GASTROINTESTINAL: No abdominal pain. No nausea or vomiting. No diarrhea or constipation. No hematemesis. No hematochezia. GENITOURINARY: No urgency. No frequency. No dysuria. No hematuria. No obstructive symptoms. No discharge. No pain. No significant abnormal bleeding. MUSCULOSKELETAL: No musculoskeletal pain; no joint swelling. NEUROLOGICAL: No headache. No neck pain. No syncope. No seizures. No dizziness. PSYCHIATRIC: Not anxious. No depression. No suicidal thoughts. No homicidal thoughts. SKIN: No rash. No lesions. No wounds. ENDOCRINE: No unexplained weight loss. No weight gain. HEMATOLOGIC/LYMPHATIC: No anemia. No purpura. No petechiae. No prolonged or excessive bleeding. No palpable lymph nodes. PHYSICAL EXAMINATION: GENERAL: The patient is resting at present time. VITAL SIGNS: Temperature 98.1, pulse 100, respiratory rate 16, blood pressure 114/54 and pulse ox 97% on room air. HEENT: Head normocephalic, atraumatic. Eyes: Extraocular muscles are intact. Pupils are equal, round and reactive to light and accommodation. Ears: No lesions. Nose appeared normal. Throat: No exudate or erythema. NECK: Supple. No JVD, no carotid bruit. No lymphadenopathy or thyromegaly. LUNGS: Decreased breath sounds. Clear to auscultation. Percussion note normal. Chest symmetrical. HEART: S1, S2, no S3. No murmurs. No cyanosis or clubbing. No ascites. Pulses: Dorsalis pedis and posterior tibial pulses +1 to +2 bilaterally. ABDOMEN: Soft. Nontender. Bowel sounds active. No CVA tenderness. No mass felt. EXTREMITIES: No edema. Full range of motion of all extremities, equal. NEUROLOGIC: No focal deficit. Cranial nerves II through XII are grossly intact. No headache. No double vision. SKIN: Not dry. Intact. Turgor - normal. LYMPHATIC: No palpable lymph nodes/no lymphedema. MUSCULOSKELETAL: Normal joints with no swelling. Muscle tone is normal. LABS: TSH is normal, GFR normal. Labs yesterday showed HGb 10.3, hct 32, WBC 14,000 normal differential, creatinine 0.4, BUN 18, potassium 3.7, T4 TSH on admission was normal. INR was 1.3. ASSESSMENT: 1. Atrial flutter/fib seems to be more or less under control 2. End stage COPD with history of C of the lung with status post radiation with continued smoking 3. History of coronary bypass surgery with ischemia cardiomyopathy 4. The patient is diabetic uncontrolled 5. 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 PLAN: 1. Continue to encourage the patient to eat 2. Continue IV Morphine for shortness of breath and anxiety 3. Continued NEBS and oxygen 4. Encourage the patient to eat 5. The patient is DNR 6. Daughter has agreed for Hospice. The patient had agreed two days ago for Hospice but she is thinking about it. TIME SPENT: More than 30 minutes. Plan and coordination of the patient's care discussed in the presence of nurse. STEFANO
== END 2021-10-28 14:00 | disposition hospice, home (50) | DRG 189 ==
LOC: LAB 14:41 → MEDSURG A 15:54
PROVIDERS: ADMIT Internal Medicine; ATTEND Internal Medicine
DX: R53.1 Weakness; J96.10 Chronic respiratory failure, unspecified whether with hypoxia or hypercapnia; I48.91 Unspecified atrial fibrillation; I10 Essential (primary) hypertension; N39.0 Urinary tract infection, site not specified; F41.9 Anxiety disorder, unspecified; R62.7 Adult failure to thrive; R22.43 Localized swelling, mass and lump, lower limb, bilateral; D64.9 Anemia, unspecified; Z79.1 Long term (current) use of non-steroidal anti-inflammatories (NSAID); E86.0 Dehydration; J44.1 Chronic obstructive pulmonary disease with (acute) exacerbation; I25.10 Atherosclerotic heart disease of native coronary artery without angina pectoris; Z72.0 Tobacco use; E11.9 Type 2 diabetes mellitus without complications; F32.9 Major depressive disorder, single episode, unspecified